=== PATIENT | female | born 1950 | race American Indian/Alaskan Native ===

== ENCOUNTER 2020-04-23 16:49 | Outpatient (REF) | payer MEDICARE, SELFPAY | END 2020-04-23 16:50 | disposition home or self-care (01) | LOC: HO.LAB 16:49 | PROVIDERS: PCP Family Medicine; Visit Provider Internal Medicine | DX: Z20.828 Contact with and (suspected) exposure to other viral communicable diseases (principal) | CPT/HCPCS: C9803; U0003 ==

== ENCOUNTER → 2020-06-01 10:04 | Outpatient (BNVA) | payer MEDICARE, SELFPAY | PROVIDERS: PCP Family Medicine; Visit Provider Internal Medicine Gastroenterology | DX: Z13.89 Encounter for screening for other disorder (principal) | CPT/HCPCS: Q3014 ==

== ENCOUNTER 2020-08-09 09:10 | Outpatient (REF) | payer MEDICARE, SELFPAY | END 2020-08-09 09:11 | disposition home or self-care (01) | LOC: HO.LAB 09:10 | PROVIDERS: Visit Provider Internal Medicine | DX: Z20.822 Contact with and (suspected) exposure to COVID-19 (principal) | CPT/HCPCS: 36415; C9803; U0003; U0005 ==

== ENCOUNTER 2020-10-21 13:49 | Outpatient (REF) | payer MEDICARE, SELFPAY ==
--- NOTE | ~2020-10-21 | MM_ITS ---
EXAMINATION: BONE DENSITOMETRY CLINICAL INDICATION: Screening for osteoporosis. COMPARISON: Previous BD dated 12/25/2013 and baseline BD dated 04/08/2010. TECHNIQUE: Using a [employer] DXA System (software version: 13.1) manufactured by [employer], dual-energy x-ray absorptiometry was performed of the lumbar spine and left hip. The images are of good technical quality. Summary results are attached. FINDINGS: AP SPINE L1-L4: Current: BMD 0.819 g/cm2, Z-score -1.6, T-score -3.0, osteoporosis, 1.6% increase from previous, 0.7% increase from baseline (<5% change is not significant). Prior: BMD 0.832 g/cm2. Baseline: BMD 0.813 g/cm2. LEFT FEMUR, NECK: Current: BMD 0.757 g/cm2, Z-score -0.5, T-score -2.0, osteopenia. Prior: BMD 0.646 g/cm2. Baseline: BMD 0.619 g/cm2. LEFT FEMUR, TOTAL: Current: BMD 0.750 g/cm2, Z-score -0.7, T-score -2.0, osteopenia, 11.6% increase from previous, 14.3% increase from baseline (<5% change is not significant). Prior: BMD 0.672 g/cm2. Baseline: BMD 0.656 g/cm2. IDENTIFIED RISK FACTORS: Menopause. HISTORY OF FRACTURE: None listed. MEDICATIONS: Calcium supplements or multivitamin, vitamin D. MM/XR DEXA axial skeleton IMPRESSION: 1. DIAGNOSIS: Osteoporosis based on the lowest T-score value of -3.0 in the lumbar spine applying World Health Organization criteria. 2. 10-YEAR FRACTURE RISK PREDICTION, FRAX: Major osteoporotic fracture (clinical spine, forearm, hip or shoulder) 6.9%. Hip fracture 1.4%. 3. Treatment Recommendations: NOF guidelines recommend consideration for treatment in postmenopausal women and men age 50 and older presenting with the following: -A hip or vertebral (clinical or morphometric) fracture. -T-score less than or equal to -2.5 at the femoral neck or spine after appropriate evaluation to exclude secondary causes. -Low bone mass at the hip or spine and a 10-year fracture probability by FRAX of greater than or equal to 3% for hip fracture or greater than or equal to 20% for major osteoporotic fracture based on the [place] adapted WHO algorithm. 4. Other Recommendations: All treatment decisions require clinical judgment and consideration of individual patient factors, including patient preferences, comorbidities, previous drug use, risk factors not captured in the FRAX model (e.g. frailty, falls, vitamin D deficiency, increased bone turnover, interval significant decline in bone density) and possible under or overestimation of fracture risk by FRAX. Additional medical evaluation for secondary cause of low bone mineral density may be appropriate. FUTURE SCAN RECOMMENDATION: People with diagnosed cases of osteoporosis or at high risk for fracture should have regular bone mineral density tests. For patients eligible for Medicare, routine testing is allowed once every 2 years. The testing frequency can be increased to one year for patients who have rapidly progressing disease, those who are receiving or discontinuing medical therapy to restore bone mass, or have additional risk factors.
== END 2020-10-21 13:50 | disposition home or self-care (01) ==
LOC: HO.MAMMO 13:49
PROVIDERS: Visit Provider Family Medicine
DX: Z13.820 Encounter for screening for osteoporosis (principal); M81.0 Age-related osteoporosis without current pathological fracture; Z78.0 Asymptomatic menopausal state; Z79.899 Other long term (current) drug therapy
CPT/HCPCS: 77080

== ENCOUNTER 2020-11-10 07:18 | Day surgery (SDC) | payer MEDICARE, SELFPAY ==
[2020-11-05 09:09] VITALS: BMI 32.0
[2020-11-10 07:37] VITALS: BP 136/54; PULSE 71; RESP 16; TEMP 36.2; O2SAT 100; BMI 31.2
--- NOTE | 2020-11-10 07:53 | MHC.SHP ---
Pre-Procedural Eval Section B Chief Complaint: Screening Relevant Family History (Specify if Yes): No Relevant Social History: None Present Medications: see Short Stay Collaborative assessment Medical History: Significant History ( AAA (abdominal aortic aneurysm) Asthma CAD (coronary artery disease) Carotid arterial disease Chronic venous insufficiency COPD (chronic obstructive pulmonary disease) Diabetes Elevated cholesterol HTN (hypertension) PVD (peripheral vascular disease) Subclavian artery stenos) History of Previous Operations: Relevant previous surgery/procedure and date(s) (History of colonoscopy Hx of endoscopy Hx of removal of cyst) Allergies: Allergies Allergy/AdvReac Type Severity Reaction Status Date / Time No Known Allergies Allergy Verified 06/01/20 10:05 Review of Systems Sugical H&P ROS: Negative: Constitution, Cardiovascular, Respiratory, Neurological, Psychiatric, Hem-Onc, Allergic/Immunologic, Gastrointestinal, Genitourinary, Musculoskeletal, Integumentary, Endocrine and Eyes/Ears/Nose/Throat Exam Surgical H&P Exam: Normal: HEENT, Normal: Heart, Normal: Lungs, Normal: Extremities, Normal: Abdomen, Normal: Skin and Normal: Neurological Plan Diagnosis/Plan: Unchanged I have reviewed the history and physical and performed a pertinent physical examination on my patient. No changes have occurred unless specified.
[2020-11-10 07:55] LABS: Glucose, Whole Blood 121 mg/dL (60-115)
--- NOTE | 2020-11-10 08:09 | P.CONAN_ITS ---
[facility] Active Problems Active Problems: All Active Problems (Updated 11/05/20 @ 09:15 by Zee cortez) Hx of colonic polyps (Acute) Past Medical History Medical History (Updated 11/05/20 @ 09:15 by Zee Hutchins) AAA (abdominal aortic aneurysm) Asthma CAD (coronary artery disease) Carotid arterial disease Chronic venous insufficiency COPD (chronic obstructive pulmonary disease) Diabetes Elevated cholesterol HTN (hypertension) PVD (peripheral vascular disease) Subclavian artery stenosis Family History Family History (Updated 06/01/20 @ 10:13 by Carolyn Peterson CMA) Father No problems noted. Mother Family history of high blood pressure Hx of type 1 diabetes mellitus Surgical History Surgical History (Updated 11/05/20 @ 08:57 by Zee Hutchins) History of colonoscopy Hx of endoscopy Hx of removal of cyst Social History Social History (Updated 06/01/20 @ 10:14 by Carolyn Peterson CMA) Alcohol intake: never Patient Tobacco Use Status: Former Tobacco user Quit Date: 2012 Tobacco use type: Cigarette Use of substances other than those prescribed or required for medical reasons: No Advance Directives Information Provided: No Meds Allergies Allergy/AdvReac Type Severity Reaction Status Date / Time No Known Allergies Allergy Verified 06/01/20 10:05 Home Medications Medication Instructions Recorded Confirmed Last Taken Type alendronate 70 mg tablet 70 mg PO QWEEK 06/01/20 11/05/20 Unknown History aspirin 81 mg tablet,delayed 81 mg PO DAILY 06/01/20 11/05/20 Unknown History release buspirone 5 mg tablet 5 mg PO BID 06/01/20 06/01/20 Unknown History cholecalciferol (vitamin D3) 50 50 mcg PO DAILY 06/01/20 06/01/20 Unknown History mcg (2,000 unit) tablet duloxetine 60 mg capsule,delayed 60 mg PO BID 06/01/20 11/05/20 Unknown History release ezetimibe 10 mg tablet 10 mg PO DAILY 06/01/20 11/05/20 Unknown History fenofibrate 160 mg tablet 160 mg PO DAILY 06/01/20 11/05/20 Unknown History fexofenadine 180 mg tablet 180 mg PO DAILY 06/01/20 06/01/20 Unknown History fluticasone 500 mcg-salmeterol 50 1 inh INHALATION DAILY 06/01/20 06/01/20 Unknown History mcg/dose blistr powdr for inhalation folic acid 1 mg tablet 1 mg PO DAILY 06/01/20 11/05/20 Unknown History gabapentin 400 mg capsule 400 mg PO TID 06/01/20 11/05/20 Unknown History metformin 500 mg tablet,extended 500 mg PO BID 06/01/20 11/05/20 Unknown History release 24 hr methotrexate sodium 2.5 mg tablet 15 mg PO QWEEK 06/01/20 06/01/20 Unknown History montelukast 10 mg tablet 10 mg PO DAILY 06/01/20 11/05/20 Unknown History quetiapine 200 mg tablet 200 mg PO BEDTIME 06/01/20 11/05/20 Unknown History rosuvastatin 40 mg tablet 40 mg PO DAILY 06/01/20 11/05/20 Unknown History sulfasalazine 500 mg tablet 1,000 mg PO BID 06/01/20 11/05/20 Unknown History clopidogrel 75 mg PO DAILY 11/05/20 11/05/20 Unknown History hydroxychloroquine 1 tab PO BID 11/05/20 11/05/20 Unknown History midodrine 5 mg PO BID 11/05/20 11/05/20 Unknown History ranitidine HCl 150 mg PO BID 11/05/20 11/05/20 Unknown History Exam Exam Date and Time: November 10, 2020 0809 Height,Weight and Vital Signs: Height 5 ft Weight 72.575 kg Last Vital Signs Temp 97.1 F 11/10/20 07:37 Pulse 71 11/10/20 07:37 Resp 16 11/10/20 07:37 BP 136/54 L 11/10/20 07:37 Pulse Ox 100 11/10/20 07:37 Pertinent Lab Results Pertinent Lab Results: Laboratory Tests 11/10/20 07:34 POC Glucose 121 H Airway Mallampati Class: II (Missing teeth on bottom) TM Dist: >3cm Neck ROM: Full Denture: Upper Heart: RRR Lungs: CTA Assessment and Plan Assessment Anesthesia Assessment: Anesthesia Plan Discussed and Chart Reviewed Final Anesthetic Review NPO: Yes ASA Class: III Final Preanesthetic Review: No Changes in Pt Med Stat and Consent Obtained/Reviewed Patient Risk: Intermediate Procedure Risk: Intermediate Anesthetic Plan Anesthetic Plan: MAC: Disposition: Standard PACU
--- NOTE | 2020-11-10 08:22 | ECG_ITS ---
Test Reason : POST OP CK RHYTHM Blood Pressure : / mmHG Vent. Rate : 068 BPM Atrial Rate : 068 BPM P-R Int : 204 ms QRS Dur : 082 ms QT Int : 416 ms P-R-T Axes : 072 -08 039 degrees QTc Int : 442 ms Poor data quality, interpretation may be adversely affected Normal sinus rhythm Normal ECG When compared with ECG of 27-SEP-2017 23:00, Vent. rate has decreased BY 33 BPM Referred By: Franck Vitale Electronically Signed By:
--- NOTE | 2020-11-10 09:04 | PM.OP ---
Brief Operative Note Date of Service: 11/10/20 Pre-op diagnosis: colon screen Post-op diagnosis: same Procedure: see op note Surgeon: Johann Terry MD Anesthesia: MAC Was an Chief Of Anesthesiology used for this Procedure?: No Estimated blood loss (mL): 0 Condition: stable Disposition: PACU
[2020-11-10 09:05] VITALS: BP 108/53; PULSE 73; RESP 16; TEMP 36.3; O2SAT 99
--- NOTE | 2020-11-10 09:05 | W.PM.OPN ---
Operative Note Operative Note Date of Service: 11/10/20 Narrative: Operative Information Procedure Description: Colonoscopy COLONOSCOPY Instrument: Olympus variable stiffness pediatric scope 190L Colonoscopy Monitoring: Vital signs and clinical assessment, continuous EKG monitoring, Pulse oximetry, Carbon Dioxide monitoring and blood pressure monitoring were done throughout the procedure. Colon withdrawal time was 8 minutes. Procedure: The patient was placed in the left lateral decubitis position and pre-procedure medications were administered. After a digital rectal examination of the ano-rectum, the video colonoscope was inserted into the rectum and advanced through the colon to the cecum/TI. The colonoscope was slowly withdrawn in a retrograde panoramic fashion and the colon mucosa was carefully examined including a retroflexed view of the rectum. Findings and interventions are described below. Procedure Difficulty:easy Findings: Terminal Ileum-normal Cecum:normal, few small non bleeding AVM noted Ascending Colon: 10 mm sessile polyp removed with col snare Transverse Colon -normal Descending Colon:normal Sigmoid Colon: normal Rectum: Retroflexion with small internal hemorrhoids, grade I Anorectum - normal Colon preparation: [place] Bowel Preparation Scale Right colon; 2 Transverse colon: 2 Left colon; 2 (0 = Unprepared colon segment with mucosa not seen due to solid stool that cannot be cleared. 1 = Portion of mucosa of the colon segment seen, but other areas of the colon segment not well seen due to staining, residual stool and/or opaque liquid. 2 = Minor amount of residual staining, small fragments of stool and/or opaque liquid, but mucosa of colon segment seen well. 3 = Entire mucosa of colon segment seen well with no residual staining, small fragments of stool or opaque liquid) Impression and Post Procedure Diagnosis: polyp AVM small internal hemorrhoids Plan: High fiber diet leaflet Avoid straining at stool, epsom salts and sitz bath, anusol supps or cream as needed Repeat Colonoscopy in 5 years or earlier if clinically indicated can restart plavix tomorrow Above findings were reviewed with the patient and relevant handouts were provided if indicated.
[2020-11-10 09:20] VITALS: BP 117/52; PULSE 69; RESP 16; TEMP 36.3; O2SAT 99
[2020-11-10 09:35] VITALS: BP 127/51; RESP 16; TEMP 36.3; O2SAT 99
== END 2020-11-10 10:44 | disposition home or self-care (01) ==
PROVIDERS: PCP Family Medicine; Visit Provider Internal Medicine Gastroenterology
PROC: 0DJD8ZZ Inspection of Lower Intestinal Tract, Via Natural or Artificial Opening Endoscopic (ICD-10-PCS; CPT 45378; principal; 2020-11-10 08:30)
DX: Z12.11 Encounter for screening for malignant neoplasm of colon (principal); K63.5 Polyp of colon; K64.0 First degree hemorrhoids; Q27.33 Arteriovenous malformation of digestive system vessel; I10 Essential (primary) hypertension; E11.9 Type 2 diabetes mellitus without complications; I71.4 Abdominal aortic aneurysm, without rupture; I77.9 Disorder of arteries and arterioles, unspecified; J44.9 Chronic obstructive pulmonary disease, unspecified; Z79.82 Long term (current) use of aspirin; Z79.84 Long term (current) use of oral hypoglycemic drugs; Z79.899 Other long term (current) drug therapy
CPT/HCPCS: 45385; 82947; 88305; 93005

== ENCOUNTER → 2020-11-23 14:48 | Outpatient (BNVA) | payer MEDICARE, SELFPAY | PROVIDERS: PCP Family Medicine; Visit Provider Internal Medicine Gastroenterology | DX: Z86.010 Personal history of colon polyps (principal) | CPT/HCPCS: Q3014 ==

== ENCOUNTER 2020-12-31 08:43 | Outpatient (REF) | payer MEDICARE, SELFPAY | END 2020-12-31 08:44 | disposition home or self-care (01) | LOC: HO.LAB 08:43 | PROVIDERS: PCP Family Medicine; Visit Provider Internal Medicine | DX: Z20.822 Contact with and (suspected) exposure to COVID-19 (principal) | CPT/HCPCS: C9803; U0003; U0005 ==

== ENCOUNTER 2021-03-10 10:04 | Outpatient (REF) | payer MEDICARE, SELFPAY ==
--- NOTE | ~2021-03-10 | XR_ITS ---
EXAMINATION: XR CHEST CLINICAL INFORMATION: COPD COMPARISON: Previous chest x-ray July 2018 and CTA of the chest November 2017 TECHNIQUE: 2 views of the chest were obtained. FINDINGS: The cardiac and mediastinal contours are normal. The lungs are clear. There is no pleural effusion or pneumothorax. There are degenerative changes of the spine. Bones may be osteopenic. XR/XR chest 2V IMPRESSION: No evidence for acute disease in the chest.
== END 2021-03-10 10:05 | disposition home or self-care (01) ==
LOC: HO.XRAY 10:04
PROVIDERS: PCP Family Medicine; Visit Provider Internal Medicine Geriatric Medicine
DX: J44.9 Chronic obstructive pulmonary disease, unspecified (principal)
CPT/HCPCS: 71046

== ENCOUNTER 2021-05-10 10:34 | Outpatient (REF) | payer MEDICARE, SELFPAY ==
--- NOTE | ~2021-05-10 | XR_ITS ---
EXAMINATION: BILATERAL SHOULDER X-RAY CLINICAL INFORMATION: Pain COMPARISON: Left shoulder x-ray June 2019 TECHNIQUE: 4 views of each shoulder FINDINGS: Left: There is increased sclerosis and lucency in the left humeral head suggestive of AVN. This is increased compared to June 2019 exam. No fracture or dislocation is seen. The glenohumeral joint is normal. There is mild arthritis at the acromioclavicular joint. Soft tissues are unremarkable. Right: Bone alignment is normal. No fracture or dislocation is seen. There is increased subchondral sclerosis of the right humeral head suggestive of AVN. Glenohumeral joint is normal. There is mild arthritis at the acromioclavicular joint. Soft tissues are unremarkable. XR/XR shoulder LT min 2V IMPRESSION: Bilateral humeral head AVN, left greater than right. Mild bilateral acromioclavicular joint arthritis.
--- NOTE | ~2021-05-10 | XR_ITS ---
EXAMINATION: BILATERAL SHOULDER X-RAY CLINICAL INFORMATION: Pain COMPARISON: Left shoulder x-ray June 2019 TECHNIQUE: 4 views of each shoulder FINDINGS: Left: There is increased sclerosis and lucency in the left humeral head suggestive of AVN. This is increased compared to June 2019 exam. No fracture or dislocation is seen. The glenohumeral joint is normal. There is mild arthritis at the acromioclavicular joint. Soft tissues are unremarkable. Right: Bone alignment is normal. No fracture or dislocation is seen. There is increased subchondral sclerosis of the right humeral head suggestive of AVN. Glenohumeral joint is normal. There is mild arthritis at the acromioclavicular joint. Soft tissues are unremarkable. XR/XR shoulder RT min 2V IMPRESSION: Bilateral humeral head AVN, left greater than right. Mild bilateral acromioclavicular joint arthritis.
== END 2021-05-10 10:35 | disposition home or self-care (01) ==
LOC: HO.XRAY 10:34
PROVIDERS: PCP Family Medicine; Visit Provider Internal Medicine
DX: M25.511 Pain in right shoulder (principal); M25.512 Pain in left shoulder
CPT/HCPCS: 73030

== ENCOUNTER → 2021-05-20 09:32 | Outpatient (BNVA) | payer MEDICARE, SELFPAY | PROVIDERS: PCP Family Medicine; Visit Provider Orthopaedic Surgery | DX: M87.011 Idiopathic aseptic necrosis of right shoulder (principal); M87.012 Idiopathic aseptic necrosis of left shoulder | CPT/HCPCS: 99202 ==

== ENCOUNTER 2021-06-14 15:36 | Outpatient (REF) | payer MEDICARE, SELFPAY ==
--- NOTE | ~2021-06-14 | MR_ITS ---
EXAMINATION: MRI OF THE LEFT SHOULDER WITHOUT CONTRAST CLINICAL INFORMATION: Left shoulder pain with symptoms x8 months. No weakness or numbness. COMPARISON: 07/05/2019 TECHNIQUE: MR images of the shoulder were obtained on a 1.5 Ge[employer] high-field strength scanner without intravenous contrast material. FINDINGS: ROTATOR CUFF: A small 0.8 x 0.4 cm interstitial, insertional partial tear of the supraspinatus tendon. The bursal and articular fibers are intact. Mild tendinosis. No additional rotator cuff tears. No muscle atrophy or fatty infiltration. BICEPS: Normal CORACOACROMIAL ARCH: The undersurface of the acromion is curved with no subacromial spur. Mild to moderate acromioclavicular osteoarthritis. LABRUM/CAPSULE: There is degenerative fraying of the glenoid labrum circumferentially, most pronounced superiorly and posteriorly. No discrete tears are identified. Joint capsule is unremarkable. GLENOHUMERAL JOINT/MARROW: There is a broad area of abnormal low-signal intensity in the subarticular bone of the humeral head superomedially measuring 3.2 x 3 cm in area with a depth of 1 cm and surrounding marrow edema. There is a very subtle cortical break along the inferior margin of the zone of infarction without significant cortical step-off. There is mild chondral thinning at the articular surface anterosuperiorly without full-thickness delamination. Small to moderate size marginal osteophytes are noted. Mild nonuniform articular cartilage loss is present at the glenoid posteriorly with a small focus of full-thickness fissuring. Small joint effusion. MR/MR shoulder LT wo con IMPRESSION: 1. 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 2. 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 3. Small 0.8 x 0.4 cm insertional, interstitial tear of the supraspinatus tendon. No larger rotator cuff tears.
== END 2021-06-14 15:37 | disposition home or self-care (01) ==
LOC: HO.MRI 15:36
PROVIDERS: PCP Family Medicine; Visit Provider Orthopaedic Surgery
DX: M87.012 Idiopathic aseptic necrosis of left shoulder (principal)
CPT/HCPCS: 73221

== ENCOUNTER 2021-06-27 13:39 | Outpatient (REF) | payer MEDICARE, SELFPAY ==
--- NOTE | ~2021-06-27 | CT_ITS ---
EXAMINATION: CT SCAN LEFT SHOULDER WITHOUT CONTRAST CLINICAL INFORMATION: Idiopathic aseptic necrosis. COMPARISON: MRI of the left shoulder June 2021. X-ray of the left shoulder May 2021. TECHNIQUE: CT scan of the left shoulder was performed utilizing a Tornier protocol. Reconstruction imaging was performed at the acquisition workstation. FINDINGS: As noted on prior examinations, there is an area of presumed avascular necrosis in the superomedial aspect of the humeral head unchanged compared to prior. There is a irregular lucency along the margin of this focus with adjacent sclerotic density. There is slight depression of the fragment. The lucency along its margin is consistent with the fracture line. There are marginal osteophytes along the inferior aspect of the humeral head indicative of at least minimal arthrosis of the glenohumeral joint. No definite joint space narrowing. The humeral head is not subluxed posteriorly. Glenoid vault depth is 1.8 cm. Glenoid version: -5 degrees No additional abnormalities. CT/CT shoulder LT wo con IMPRESSION: Tornier protocol performed for preoperative planning purposes. Avascular necrosis of the humeral head with slight depression of the area of avascular necrosis as seen on prior examinations. Minimal glenohumeral arthrosis.
== END 2021-06-27 13:40 | disposition home or self-care (01) ==
LOC: HO.CT 13:39
PROVIDERS: Visit Provider Orthopaedic Surgery
DX: M87.019 Idiopathic aseptic necrosis of unspecified shoulder (principal)
CPT/HCPCS: 73200

== ENCOUNTER 2021-06-28 12:03 | Outpatient (REF) | payer MEDICARE, SELFPAY ==
--- NOTE | ~2021-06-28 | XR_ITS ---
EXAMINATION: XR SHOULDER, RIGHT CLINICAL INFORMATION: Pain after fall a few weeks ago. COMPARISON: Right shoulder x-ray 05/10/2021 TECHNIQUE: AP external rotation, Grashey, scapular Y, and axillary views of the right shoulder. FINDINGS: Visualized portions of the proximal right humerus demonstrate no fracture. Humeral head demonstrates good articulation with the glenoid fossa. Mild sclerosis again noted within the right humeral head. There are mild degenerative changes of the right acromioclavicular joint. Visualized right-sided ribs and lung parenchyma are unremarkable. XR/XR shoulder RT min 2V IMPRESSION: Mild degenerative changes of the right shoulder including known avascular necrosis of the humeral head. No fracture or dislocation is present.
== END 2021-06-28 12:04 | disposition home or self-care (01) ==
LOC: HO.XRAY 12:03
PROVIDERS: PCP Family Medicine; Visit Provider Internal Medicine
DX: M25.511 Pain in right shoulder (principal)
CPT/HCPCS: 73030

== ENCOUNTER → 2021-07-19 12:48 | Outpatient (BNVA) | payer MEDICARE, SELFPAY | PROVIDERS: PCP Family Medicine; Visit Provider Orthopaedic Surgery | DX: Z01.812 Encounter for preprocedural laboratory examination (principal) | CPT/HCPCS: 36415; 80048; 83036; 85025 ==

== ENCOUNTER → 2021-07-22 13:36 | Outpatient (BNVA) | payer MEDICARE, SELFPAY | PROVIDERS: PCP Family Medicine; Visit Provider Physician Assistant | DX: M87.019 Idiopathic aseptic necrosis of unspecified shoulder (principal) | CPT/HCPCS: 99212 ==

== ENCOUNTER 2021-08-18 | Outpatient (REF) | payer OTHER, SELFPAY ==
--- NOTE | 2021-07-19 14:18 | ECG_ITS ---
Test Reason : preproc exam Blood Pressure : / mmHG Vent. Rate : 072 BPM Atrial Rate : 072 BPM P-R Int : 194 ms QRS Dur : 064 ms QT Int : 384 ms P-R-T Axes : 069 015 056 degrees QTc Int : 420 ms Normal sinus rhythm Normal ECG When compared with ECG of 10-NOV-2020 09:30, No significant change was found Referred By: Roger Watson Electronically Signed By:VALENTIN GARZA MD
== END 2021-08-18 00:01 ==
LOC: HO.PAT
PROVIDERS: PCP Family Medicine; Visit Provider Orthopaedic Surgery
DX: Z01.810 Encounter for preprocedural cardiovascular examination (principal); I96 Gangrene, not elsewhere classified
CPT/HCPCS: 93005

== ENCOUNTER 2021-11-22 12:23 | Emergency (ER) | payer OTHER, SELFPAY ==
--- NOTE | ~2021-11-22 | CT_ITS ---
EXAMINATION: CT HEAD WITHOUT CONTRAST CLINICAL INFORMATION: Head pain status post fall. COMPARISON: 11/21/[address] scan. TECHNIQUE: Contiguous axial imaging was performed from the skull base to vertex without intravenous administration of contrast. Coronal and sagittal reformatted images were obtained. This CT examination was performed using dose optimization techniques as appropriate, variously including the following: *Automated exposure control *Adjustment of mA and/or kV according to patient size (this includes techniques or standardized protocols for targeted exams where dose is matched to indication/reason for exam; i.e. extremities or head) *Use of iterative reconstruction technique DLP: 669.43 mGy-cm FINDINGS: There is no evidence of acute intracranial hemorrhage or territorial infarction. No abnormal mass effect or midline shift is seen. Cesar to white matter differentiation is well preserved. No extra-axial fluid collections are identified. The ventricles are normal in size. There is no abnormal attenuation within the brain parenchyma. The osseous structures and soft tissues are normal. The paranasal sinuses show moderate mucosal thickening and a small air-fluid level in the right maxillary sinus. The remainder of the visualized paranasal sinuses are clear. The mastoid air cells are clear. CT/CT head/brain wo con IMPRESSION: No acute intracranial pathology.
--- NOTE | ~2021-11-22 | XR_ITS ---
EXAMINATION: RIGHT SHOULDER AND HUMERUS X-RAY CLINICAL INFORMATION: Pain post fall COMPARISON: Previous right shoulder x-ray June 2021 TECHNIQUE: 2 views of the right humerus and 3 views of the right shoulder FINDINGS: Bone alignment is normal. No fracture or dislocation is seen. There is increased subchondral sclerosis and collapse of the humeral head suggestive of AVN. There is mild arthritis at the acromioclavicular joint. The elbow joint is normal. Soft tissues are normal. XR/XR humerus RT IMPRESSION: No fracture or dislocation. The AVN of the right humeral head. Mild arthritis at the acromioclavicular joint.
--- NOTE | ~2021-11-22 | XR_ITS ---
EXAMINATION: RIGHT SHOULDER AND HUMERUS X-RAY CLINICAL INFORMATION: Pain post fall COMPARISON: Previous right shoulder x-ray June 2021 TECHNIQUE: 2 views of the right humerus and 3 views of the right shoulder FINDINGS: Bone alignment is normal. No fracture or dislocation is seen. There is increased subchondral sclerosis and collapse of the humeral head suggestive of AVN. There is mild arthritis at the acromioclavicular joint. The elbow joint is normal. Soft tissues are normal. XR/XR shoulder RT min 2V IMPRESSION: No fracture or dislocation. The AVN of the right humeral head. Mild arthritis at the acromioclavicular joint.
--- NOTE | ~2021-11-22 | XR_ITS ---
EXAMINATION: XR ELBOW, RIGHT CLINICAL INFORMATION: Right elbow pain and swelling COMPARISON: None TECHNIQUE: AP, lateral, and oblique views of the right elbow. FINDINGS: The bones and soft tissues are unremarkable. No fracture or definite joint effusion. Alignment is anatomic. Joint spaces are maintained. XR/XR elbow RT min 3V IMPRESSION: Unremarkable right elbow. Cause for the patient's elbow pain and swelling has not been found.
--- NOTE | ~2021-11-22 | XR_ITS ---
EXAMINATION: XR RIBS, RIGHT CLINICAL INFORMATION: Fall. Rib pain. COMPARISON: Previous chest x-ray March 2021 left shoulder x-ray May [address] of the left shoulder June 2021 TECHNIQUE: 3 views of the right ribs and one view of the chest were obtained. FINDINGS: Lungs are clear. No consolidation, pneumothorax, or pleural effusion. The cardiomediastinal silhouette and pulmonary vasculature are normal. There is increased sclerosis of the left humeral head suggestive of AVN. This is similar to previous exams. There are degenerative changes of the thoracic spine. Ribs are intact. No rib fractures are identified. XR/XR ribs RT min 3V w CXR1V IMPRESSION: No evidence for acute disease in the chest. No rib fracture. Degenerative changes of the thoracic spine. Increased sclerosis of the left humeral head suggestive of AVN.
--- NOTE | ~2021-11-22 | CT_ITS ---
EXAMINATION: CT CERVICAL SPINE WITHOUT CONTRAST CLINICAL INFORMATION: Neck pain status post fall. COMPARISON: Chest CTA dated 11/06/2017. TECHNIQUE: Multiple axial images of the cervical spine were obtained without the administration of intravenous contrast. Coronal and sagittal reformatted images were obtained. This CT examination was performed using dose optimization techniques as appropriate, variously including the following: *Automated exposure control *Adjustment of mA and/or kV according to patient size (this includes techniques or standardized protocols for targeted exams where dose is matched to indication/reason for exam; i.e. extremities or head) *Use of iterative reconstruction technique DLP: 381.13 mGy-cm FINDINGS: There is straightening of the normal cervical lordosis. The vertebral bodies are unremarkable. Minimal grade 1 anterolisthesis is seen at C6-C7. The disc spaces are unremarkable. The neural foramina are patent. The facet joints are unremarkable. The spinous processes are intact. The odontoid process is intact with mild articular degenerative changes. The cervical soft tissues are unremarkable. There is no lymphadenopathy. The thyroid gland is unremarkable. The visualized lung apices show mild centrilobular/paraseptal emphysema and biapical scarring, right greater than left. CT/CT cervical spine wo con IMPRESSION: 1. Straightening of the normal cervical lordosis may be secondary to positioning and/or muscle spasm. 2. No acute abnormality. Minimal grade 1 anterolisthesis at C6-C7 is likely degenerative in nature. No associated acute abnormality. 3. Mild biapical centrilobular/paraseptal emphysema and biapical scarring without other significant abnormality Fleischner guidelines were followed.
[2021-11-22 12:49] VITALS: BP 167/59; PULSE 72; RESP 19; TEMP 36.9; O2SAT 98; BMI 25.8
--- NOTE | 2021-11-22 12:54 | ECG_ITS ---
Test Reason : DIZINESS Blood Pressure : / mmHG Vent. Rate : 061 BPM Atrial Rate : 061 BPM P-R Int : 184 ms QRS Dur : 070 ms QT Int : 398 ms P-R-T Axes : 058 -05 021 degrees QTc Int : 400 ms Normal sinus rhythm Minimal voltage criteria for LVH, may be normal variant ( R in aVL ) Borderline ECG When compared with ECG of 19-JUL-2021 14:20, No significant change was found Referred By: Generic ED Physician Electronically Signed By:VALENTIN GARZA MD
[2021-11-22 13:11] LABS: MANUAL DIFF FLAG NO
[2021-11-22 13:13] LABS: Appearance Urine CLEAR; Color Urine YELLOW; Glucose Urine UA NEG (NEG); Leukocyte Esterase Urine 1+ (NEG); Nitrite Urine NEG (NEG); UACC Culture Trigger YES; Urine Blood NEG (NEG); Urine Ketones NEG (NEG); Urine Protein NEG (NEG-TRACE)
[2021-11-22 13:18] LABS: Basophils Absolute Auto 0.1 X10*3/uL (0.0-0.2); Basophils Percent Auto 0.9 % (0-2); Eosinophils Absolute Auto 0.3 X10*3/uL (0.0-0.4); Eosinophils Percent Auto 3.7 % (0-4); Hematocrit 39.7 % (37.0-47.0); Hemoglobin 12.8 g/dl (12.0-16.0); Imm Gran Abs Auto 0.06 X10*3/uL (0.00-0.03); Imm Gran Pct Auto 0.9 % (0.0-0.4); Lymphocytes Absolute Auto 2.1 X10*3/uL (1.2-4.9); Lymphocytes Percent Auto 30.5 % (20-40); Mean Corpuscular HGB Conc 32.2 g/dl (31.0-35.0); Mean Corpuscular Hemoglobin 29.6 pg (27.0-33.0); Mean Corpuscular Volume 91.9 fL (80.0-98.0); Mean Platelet Volume 10.5 fL (9.4-12.3); Monocytes Absolute Auto 0.6 X10*3/uL (0.1-1.2); Monocytes Percent Auto 8.6 % (2-11); Neutrophils Absolute Auto 3.9 x10*3/uL (2.0-8.3); Neutrophils Percent Auto 55.4 % (45-73); Platelet Count 211 X10*3/uL (160-400); Red Blood Count 4.32 X10*6/uL (4.20-5.50); Red Cell Distribution Width 13.2 % (11.0-16.0)
[2021-11-22 13:21] LABS: Bacteria Urine TRACE /LPF; RBC Urine 0 /HPF (0); Squamous Epithelial Cell Urine 2+ /LPF
[2021-11-22 13:31] LABS: Anion Gap 11 (12-20); Blood Urea Nitrogen 15 mg/dL (9-16); Calcium 8.9 mg/dL (8.4-10.2); Carbon Dioxide 25 mmol/L (22-29); Chloride 109 mmol/L (96-108); Creatinine Clr Calc Pharmacy 67.3; Estimated Glomerular Filt Rate > 60; Glucose Random 120 mg/dL (60-115); Potassium 3.9 mmol/L (3.3-5.1); Sodium 141 mmol/L (135-145); Troponin-I High Sensitivity < 3.5 ng/L (<3.5-17.0)
[2021-11-22 15:04] VITALS: BP 174/69; PULSE 62; RESP 18; TEMP 36.9; O2SAT 98
--- NOTE | 2021-11-22 15:14 | ED.FALL ---
HPI - Fall General Chief Complaint: Fall Stated Complaint: rib pain r arm pain Time Seen by Provider: 11/22/21 15:14 Source: patient Mode of arrival: EMS Limitations: language barrier History of Present Illness HPI Narrative: 71-year-old female with past medical history of abdominal aortic aneurysm, asthma, coronary artery disease, carotid artery disease, chronic venous insufficiency, COPD, diabetes, hypertension, peripheral vascular disease, and subclavian arterial stenosis who is on Plavix and has a past medical history of avascular necrosis of right shoulder diagnosed on MRI in June 2021, presents for pain in her right ribs and right arm after a fall last night. Patient was in the bathtub and became dizzy and fell. Patient is not dizzy now, denies chest pain, denies shortness of breath. States she did hit her head on the left side, endorses mild neck pain, denies loss of consciousness. Patient has pain in her right shoulder, she cannot range her shoulder due to prior rotator cuff tear in right shoulder. She has pain in her right upper arm, right elbow, right ribs. Related Data Home Medications Medication Instructions Recorded Confirmed alendronate 70 mg tablet 70 mg PO QWEEK 06/01/20 07/19/21 aspirin 81 mg tablet,delayed 81 mg PO DAILY 06/01/20 07/19/21 release buspirone 5 mg tablet 5 mg PO BID 06/01/20 07/19/21 cholecalciferol (vitamin D3) 50 50 mcg PO DAILY 06/01/20 07/19/21 mcg (2,000 unit) tablet duloxetine 60 mg capsule,delayed 60 mg PO BID 06/01/20 07/19/21 release ezetimibe 10 mg tablet 10 mg PO DAILY 06/01/20 07/19/21 fenofibrate 160 mg tablet 160 mg PO DAILY 06/01/20 07/19/21 fexofenadine 180 mg tablet 180 mg PO DAILY 06/01/20 07/19/21 fluticasone 500 mcg-salmeterol 50 1 inh inhalation DAILY 06/01/20 07/19/21 mcg/dose blistr powdr for inhalation folic acid 1 mg tablet 1 mg PO DAILY 06/01/20 07/19/21 gabapentin 400 mg capsule 400 mg PO TID 06/01/20 07/19/21 metformin 500 mg tablet,extended 500 mg PO BID 06/01/20 07/19/21 release 24 hr methotrexate sodium 2.5 mg tablet 15 mg PO QWEEK 06/01/20 07/19/21 montelukast 10 mg tablet 10 mg PO DAILY 06/01/20 07/19/21 quetiapine 200 mg tablet 200 mg PO BEDTIME 06/01/20 07/19/21 rosuvastatin 40 mg tablet 40 mg PO DAILY 06/01/20 07/19/21 sulfasalazine 500 mg tablet 1,000 mg PO BID 06/01/20 07/19/21 clopidogrel 75 mg tablet 75 mg PO DAILY 11/05/20 07/19/21 hydroxychloroquine 200 mg tablet 1 tab PO BID 11/05/20 07/19/21 midodrine 5 mg tablet 5 mg PO BID 11/05/20 07/19/21 ranitidine HCl 150 mg tablet 150 mg PO BID 11/05/20 07/19/21 Previous Rx's Medication Instructions Recorded peg-electrolyte solution 420 gram 240 ml PO Q10M #4,000 mL 06/01/20 oral solution (TriLyte With Flavor Packets) bisacodyl 5 mg tablet,delayed 10 mg PO ONCE Bowel Preparation 1 06/02/20 release (Dulcolax (bisacodyl)) day #2 tabs polyethylene glycol 3350 17 238 g PO ONCE 1 day #238 grams 06/02/20 gram/dose oral powder (Miralax) acetaminophen 500 mg tablet 500 mg PO Q6H PRN pain #30 tabs 11/22/21 cefuroxime axetil 500 mg tablet 500 mg PO BID 7 days #14 tabs 11/22/21 Allergies Allergy/AdvReac Type Severity Reaction Status Date / Time No Known Allergies Allergy Verified 07/22/21 13:45 Review of Systems Constitutional: Constitutional: Denies body ache(s), Denies chills, Denies fatigue, Denies fever(s), Denies headache(s), Denies malaise and Denies weakness Eyes: Eyes: Denies blurry vision and Denies diplopia ENT: Denies vertigo, Reports dizziness, Denies otalgia, Denies headache(s), Denies mouth pain, Denies post nasal drip, Denies sinus pain, Denies sinus pressure, Denies sore throat and Denies throat swelling Cardiovascular: Cardiovascular: Denies chest pain, Denies syncope, Denies leg edema, Denies lightheadedness, Denies Loss of Consciousness, Denies palpitations and Denies dyspnea Respiratory: Respiratory: Denies chest congestion, Denies cough and Denies dyspnea Gastrointestinal: Gastrointestinal: Denies abdominal pain, Denies hematochezia, Denies constipation, Denies diarrhea, Denies nausea and Denies vomiting Genitourinary: Genitourinary: Reports no additional female genitourinary complaints Musculoskeletal: Musculoskeletal: Reports back pain, Reports arthralgias and Reports radiating pain into limb Integumentary/Breasts: Skin/Breast: Denies erythema and Denies wounds Neurologic: Denies confusion, Denies vertigo, Reports dizziness, Denies syncope, Denies headache(s) and Denies weakness Psychiatric: Psychiatric: Denies anxiety, Denies confusion and Denies depression Endocrine: Endocrine: Denies fatigue and Denies palpitations Allergic/Immunologic: Allergic/Immunologic: Denies throat swelling PMFSH Past Medical History Medical History AAA (abdominal aortic aneurysm) Asthma CAD (coronary artery disease) Carotid arterial disease Chronic venous insufficiency COPD (chronic obstructive pulmonary disease) Diabetes Elevated cholesterol HTN (hypertension) PVD (peripheral vascular disease) Subclavian artery stenosis Surgical History History of colonoscopy Hx of endoscopy Hx of removal of cyst Family History Family History Father No problems noted. Mother Family history of high blood pressure Hx of type 1 diabetes mellitus Social History Social History Alcohol intake: never Patient Tobacco Use Status: Former Tobacco user Quit Date: 2012 Tobacco use type: Cigarette Advance Directives: No Advance Directives Information Provided: No Physical Exam Vital Signs: Vital Signs: Last Vital Signs Temp 98 F 11/22/21 17:19 Pulse 56 11/22/21 17:19 Resp 16 11/22/21 17:19 BP 168/59 H 11/22/21 17:19 Pulse Ox 98 11/22/21 17:19 O2 Del Method 11/22/21 17:19 BMI result Body Mass Index 25.8 Const: General: comfortable, no acute distress, well developed, alert and awake; No confusion Nutritional Appearance: well nourished Orientation/consciousness: patient oriented x3 and No confusion Limitations: no limitations Eyes: Conjunctivae: conjunctivae normal Pupils: Equal, round and reactive pupils present EOM: EOMs intact bilaterally Neck: Neck: Yes full ROM, Yes no lymphadenopathy and Yes supple Chest: Chest palpation & inspection: normal inspection of the chest and no crepitus Resp: Effort & Inspection: normal respiratory effort and able to speak in complete sentences Auscultation: clear to auscultation bilaterally, no crackles, no rales, no rhonchi and no wheezes Cardio: Rate: regular rate Rhythm: regular rhythm Heart sounds: S1 normal heart sound present and S2 normal heart sound present GI: Inspection: Yes normal to inspection Palpation (GI): Soft to palpation, nontender, no guarding and not rigid Percussion: Yes normal to percussion Auscultation: normal bowel sounds : General: Yes no CVA tenderness Back/Spine/Pelvis: Back: no CVA tenderness Cervical Spine: normal cervical lordosis, cervical ROM normal, No Cervical spine tenderness, No step off deformity and No cervical ROM abnormal Thoracic/Lumbar Spine: thoracic and lumbar spine normal to inspection, No paraspinal muscle tenderness, No thoracic spinal tenderness and No lumbar spinal tenderness Pelvis: no pain with anterior-posterior compression and no pain with lateral compression Skin: General skin exam: no rashes or lesions noted Neuro: General: patient oriented x3 and No confusion Cranial nerves: Yes Equal, round and reactive pupils present Extrem: Right upper extremity: normal to inspection, normal capillary refill, shoulder/upper arm Details: normal to inspection, axillary nerve sensory function normal and abnormal ROM Details: pain with active ROM Details: in ADduction, in ABduction, in extension, in flexion, in internal rotation and external rotation-; no lacerations, no ecchymosis, no crepitus, no deformity and no unusual warmth and elbow/forearm Details: normal to inspection, tenderness and normal ROM; no swelling; no edema Psych: Appearance: grossly normal Affect: normal affect Attitude: cooperative Thought process: Normal thought process present Course Course Course Narrative: 71-year-old female presents for right arm pain and right rib pain status post fall yesterday in the bathtub. Patient fell because she was dizzy. Denies dizziness at this time denies chest pain, denies shortness of breath. On exam, patient is well-appearing, is tender over right AC joint, cannot range her right shoulder, is tender over her right posterior ribs. Also tender over medial and lateral elbow olecranon. Patient cannot range her shoulder due to prior known avascular necrosis and rotator cuff tear. Head CT is negative, CT cervical spines shows straightening of the normal lordosis, patient has a normal EKG with a negative troponin. Labs are unremarkable, imaging shows cervical neck muscle spasm, and right shoulder increased subchondral sclerosis and collapse of the humeral head due to avascular necrosis along with AC joint arthritis. No fractures found. Urine is mildly infected, this could be a source of patient's dizziness last night, will treat with antibiotics. Counseled patient that she must follow-up with orthopedics. Explained to her that avascular necrosis means that her bone is dying, this will not get better on its own. Reevaluation(s) Reevaluation #1: FINDINGS: There is no evidence of acute intracranial hemorrhage or territorial infarction. No abnormal mass effect or midline shift is seen. Cesar to white matter differentiation is well preserved. No extra-axial fluid collections are identified. The ventricles are normal in size. There is no abnormal attenuation within the brain parenchyma. The osseous structures and soft tissues are normal. The paranasal sinuses show moderate mucosal thickening and a small air-fluid level in the right maxillary sinus. The remainder of the visualized paranasal sinuses are clear. The mastoid air cells are clear. ? CT/CT head/brain wo con IMPRESSION: No acute intracranial pathology. ? CT/CT cervical spine wo con IMPRESSION: 1. Straightening of the normal cervical lordosis may be secondary to positioning and/or muscle spasm. 2. No acute abnormality. Minimal grade 1 anterolisthesis at C6-C7 is likely degenerative in nature. No associated acute abnormality. 3. Mild biapical centrilobular/paraseptal emphysema and biapical scarring without other significant abnormality Bone alignment is normal. No fracture or dislocation is seen. There is increased subchondral sclerosis and collapse of the humeral head suggestive of AVN. There is mild arthritis at the acromioclavicular joint. The elbow joint is normal. Soft tissues are normal. XR/XR shoulder RT min 2V IMPRESSION: No fracture or dislocation. The AVN of the right humeral head. Mild arthritis at the acromioclavicular joint.? MDM - Fall Lab Data Result diagrams: 11/22/21 13:08 11/22/21 13:08 Labs: Lab Results 11/22/21 11/22/21 11/22/21 Range/Units 13:04 13:08 13:08 WBC 7.0 (4.8-10.8) X10*3/uL RBC 4.32 (4.20-5.50) X10*6/uL Hgb 12.8 (12.0-16.0) g/dl Hct 39.7 (37.0-47.0) % MCV 91.9 (80.0-98.0) fL MCH 29.6 (27.0-33.0) pg MCHC 32.2 (31.0-35.0) g/dl RDW 13.2 (11.0-16.0) % Plt Count 211 (160-400) X10*3/uL MPV 10.5 (9.4-12.3) fL Immature Gran % (Auto) 0.9 H (0.0-0.4) % Neut % (Auto) 55.4 (45-73) % Lymph % (Auto) 30.5 (20-40) % [place] % (Auto) 8.6 (2-11) % Eos % (Auto) 3.7 (0-4) % Baso % (Auto) 0.9 (0-2) % Lymph # (Auto) 2.1 (1.2-4.9) X10*3/uL [place] # (Auto) 0.6 (0.1-1.2) X10*3/uL Eos # (Auto) 0.3 (0.0-0.4) X10*3/uL Baso # (Auto) 0.1 (0.0-0.2) X10*3/uL Abs Immat Gran (auto) 0.06 H (0.00-0.03) X10*3/uL Absolute Neuts (auto) 3.9 (2.0-8.3) x10*3/uL Absolute Nucleated RBC 0.000 (0.0-0.012) X10*3/uL Nucleated RBC % (auto) 0.0 (0.0-0.2) /100WBC Sodium 141 (135-145) mmol/L Potassium 3.9 (3.3-5.1) mmol/L Chloride 109 H (96-108) mmol/L Carbon Dioxide 25 (22-29) mmol/L Anion Gap 11 L (12-20) BUN 15 (9-16) mg/dL Creatinine 0.77 (0.5-1.4) mg/dL Estim Creat Clear Calc 67.3 Estimated GFR > 60 Random Glucose 120 H (60-115) mg/dL Calcium 8.9 D (8.4-10.2) mg/dL Troponin I High Sens (<3.5-17.0) ng/L Urine Color YELLOW Urine Appearance CLEAR Urine pH 6.0 (5.0-8.0) Ur Specific [place] 1.010 (1.005-1.025) Urine Protein NEG (NEG-TRACE) MG/DL Urine Glucose (UA) NEG (NEG) MG/DL Urine Ketones NEG (NEG) MG/DL Urine Blood NEG (NEG) Urine Nitrite NEG (NEG) Ur Leukocyte Esterase 1+ H (NEG) Urine RBC 0 (0) /HPF Urine WBC 5-9 H (0-4) /HPF Ur Squamous Epith Cells 2+ /LPF Urine Bacteria TRACE /LPF COVID-19 ([facility]) (Negative) COVID-19 Clin Com 11/22/21 11/22/21 Range/Units 13:08 16:13 WBC (4.8-10.8) X10*3/uL RBC (4.20-5.50) X10*6/uL Hgb (12.0-16.0) g/dl Hct (37.0-47.0) % MCV (80.0-98.0) fL MCH (27.0-33.0) pg MCHC (31.0-35.0) g/dl RDW (11.0-16.0) % Plt Count (160-400) X10*3/uL MPV (9.4-12.3) fL Immature Gran % (Auto) (0.0-0.4) % Neut % (Auto) (45-73) % Lymph % (Auto) (20-40) % [place] % (Auto) (2-11) % Eos % (Auto) (0-4) % Baso % (Auto) (0-2) % Lymph # (Auto) (1.2-4.9) X10*3/uL [place] # (Auto) (0.1-1.2) X10*3/uL Eos # (Auto) (0.0-0.4) X10*3/uL Baso # (Auto) (0.0-0.2) X10*3/uL Abs Immat Gran (auto) (0.00-0.03) X10*3/uL Absolute Neuts (auto) (2.0-8.3) x10*3/uL Absolute Nucleated RBC (0.0-0.012) X10*3/uL Nucleated RBC % (auto) (0.0-0.2) /100WBC Sodium (135-145) mmol/L Potassium (3.3-5.1) mmol/L Chloride (96-108) mmol/L Carbon Dioxide (22-29) mmol/L Anion Gap (12-20) BUN (9-16) mg/dL Creatinine (0.5-1.4) mg/dL Estim Creat Clear Calc Estimated GFR Random Glucose (60-115) mg/dL Calcium (8.4-10.2) mg/dL Troponin I High Sens < 3.5 (<3.5-17.0) ng/L Urine Color Urine Appearance Urine pH (5.0-8.0) Ur Specific [place] (1.005-1.025) Urine Protein (NEG-TRACE) MG/DL Urine Glucose (UA) (NEG) MG/DL Urine Ketones (NEG) MG/DL Urine Blood (NEG) Urine Nitrite (NEG) Ur Leukocyte Esterase (NEG) Urine RBC (0) /HPF Urine WBC (0-4) /HPF Ur Squamous Epith Cells /LPF Urine Bacteria /LPF COVID-19 ([facility]) Negative (Negative) COVID-19 Clin Com See Note ECG Data Interpretation: Sinus with a rate of 61, [place] interval 184, QRS 70, QTC 400, left-sided axis, no ST elevations or depressions, no T-wave abnormalities Discharge Plan Discharge Clinical Impression: Fall, Avascular necrosis of bone of shoulder, Acute UTI Patient Disposition: Home, Self-Care Instructions: Fall Prevention (ED), Urinary Tract Infection in Older Adults (ED) Additional Instructions: I have referred you to a Orthopedics. It is very important that you follow-up with them for your right shoulder. If you do not hear from them by tomorrow afternoon please call them at the following phone number [phone] in addition, your having urinary tract infection. I have send antibiotics to [facility] on [facility] I would like you to start those tonight. Please return to the emergency room if you have chest pain, shortness of breath, fevers, or any more dizziness. In addition, I have prescribed Tylenol. I also want you to call your primary care provider for follow-up appointment from today's emergency room visit Te he derivado a [employer]. Es muy importante que kari un seguimiento con ellos para walter hombro derecho. Si no tiene noticias de ellos ma?gregory por la tarde, ll?melos al siguiente n?irena de tel?fono [phone] adem?s, tiene shiva infecci?n del tracto urinario. He enviado antibi?ticos a [facility] en [facility]. Me gustar?a que los comenzara esta noche. Regrese a la alec de emergencias si tiene dolor en el pecho, dificultad para respirar, fiebre o m?s mareos. Adem?s, le he recetado Tylenol. Tambi?n quiero que llame a walter proveedor de atenci?n primaria para shiva luis daniel de seguimiento de la visita a la alec de emergencias de hoy. Prescriptions: New cefuroxime axetil 500 mg tablet 500 mg PO BID 7 Days Qty: 14 0RF acetaminophen 500 mg tablet 500 mg PO Q6H PRN (Reason: pain) Qty: 30 0RF No Action midodrine 5 mg tablet 5 mg PO BID clopidogrel 75 mg tablet 75 mg PO DAILY ranitidine HCl 150 mg Tablet 150 mg PO BID hydroxychloroquine 200 mg tablet 1 tab PO BID methotrexate sodium 2.5 mg tablet 15 mg PO QWEEK sulfasalazine 500 mg tablet 1,000 mg PO BID cholecalciferol (vitamin D3) 50 mcg (2,000 unit) tablet 50 mcg PO DAILY fenofibrate 160 mg tablet 160 mg PO DAILY duloxetine 60 mg capsule,delayed release(DR/EC) 60 mg PO BID rosuvastatin 40 mg tablet 40 mg PO DAILY metformin 500 mg tablet extended release 24 hr 500 mg PO BID ezetimibe 10 mg tablet 10 mg PO DAILY montelukast 10 mg tablet 10 mg PO DAILY folic acid 1 mg tablet 1 mg PO DAILY fluticasone propion-salmeterol 500-50 mcg/dose blister with device 1 inh inhalation DAILY aspirin 81 mg tablet,delayed release (DR/EC) 81 mg PO DAILY fexofenadine 180 mg tablet 180 mg PO DAILY gabapentin 400 mg capsule 400 mg PO TID alendronate 70 mg tablet 70 mg PO QWEEK buspirone 5 mg tablet 5 mg PO BID quetiapine 200 mg tablet 200 mg PO BEDTIME peg-electrolyte soln [TriLyte With Flavor Packets] 420 gram recon soln 240 ml PO Q10M Qty: 4000 0RF Rx Instructions: until fecal effluent is clear; do not exceed a total volume of 2,000 mL polyethylene glycol 3350 [Miralax] 17 gram/dose powder 238 g PO ONCE 1 Days Qty: 238 0RF Rx Instructions: Take as directed by mouth, bowel prep bisacodyl [Dulcolax (bisacodyl)] 5 mg tablet,delayed release (DR/EC) 10 mg PO ONCE 1 Days Qty: 2 0RF Rx Instructions: Take 2 tablets at 12:00pm the day before your procedure, bowel prep Referrals: Roger Watson MD [Physician] -
[2021-11-22] MEDS: Acetaminophen 325 MG TABLET 975 MG PO (16:08)
[2021-11-22 16:32] LABS: COVID-19 Test Negative (Negative); IDNOW Serial# 16C4AD1C
[2021-11-22 17:19] VITALS: BP 168/59; PULSE 56; RESP 16; TEMP 36.6; O2SAT 98
== END 2021-11-22 18:17 | disposition home or self-care (01) ==
PROVIDERS: Physician Assistant; Emergency Provider Student in an Organized Health Care Education/Training Program
DX: S46.911A Strain of unspecified muscle, fascia and tendon at shoulder and upper arm level, right arm, initial encounter (principal); S29.9XXA Unspecified injury of thorax, initial encounter; R42 Dizziness and giddiness; M54.2 Cervicalgia; G44.309 Post-traumatic headache, unspecified, not intractable; R07.81 Pleurodynia; W18.2XXA Fall in (into) shower or empty bathtub, initial encounter; Y93.E1 Activity, personal bathing and showering; Y92.002 Bathroom of unspecified non-institutional (private) residence as the place of occurrence of the external cause; Y99.9 Unspecified external cause status; Z20.822 Contact with and (suspected) exposure to COVID-19; Z79.899 Other long term (current) drug therapy; Z87.891 Personal history of nicotine dependence
CPT/HCPCS: 36415; 70450; 71101; 72125; 73030; 73060; 73080; 80048; 81001; 84484; 85025; 87086; 87635; 93005; 99284

== ENCOUNTER 2021-11-30 08:47 | Outpatient (REF) | payer OTHER, SELFPAY ==
[2021-11-30 08:59] LABS: MANUAL DIFF FLAG NO
[2021-11-30 10:30] LABS: Basophils Percent Auto 0.8 % (0-2); Eosinophils Absolute Auto 0.3 X10*3/uL (0.0-0.4); Eosinophils Percent Auto 5.9 % (0-4); Hematocrit 37.7 % (37.0-47.0); Hemoglobin 12.3 g/dl (12.0-16.0); Imm Gran Abs Auto 0.02 X10*3/uL (0.00-0.03); Imm Gran Pct Auto 0.4 % (0.0-0.4); Lymphocytes Absolute Auto 1.8 X10*3/uL (1.2-4.9); Lymphocytes Percent Auto 34.4 % (20-40); Mean Corpuscular HGB Conc 32.6 g/dl (31.0-35.0); Mean Corpuscular Hemoglobin 30.5 pg (27.0-33.0); Mean Corpuscular Volume 93.5 fL (80.0-98.0); Mean Platelet Volume 11.8 fL (9.4-12.3); Monocytes Absolute Auto 0.4 X10*3/uL (0.1-1.2); Monocytes Percent Auto 7.8 % (2-11); Neutrophils Absolute Auto 2.7 x10*3/uL (2.0-8.3); Neutrophils Percent Auto 50.7 % (45-73); Platelet Count 208 X10*3/uL (160-400); Red Blood Count 4.03 X10*6/uL (4.20-5.50); Red Cell Distribution Width 13.8 % (11.0-16.0); White Blood Count 5.2 X10*3/uL (4.8-10.8)
[2021-11-30 11:10] LABS: Alanine Aminotransferase 66 U/L (0-31); Aspartate Amino Transferase 58 U/L (5-31); Estimated Glomerular Filt Rate > 60
[2021-11-30 11:12] LABS: Erythrocyte Sedimentation Rate 50 MM/HR (0-20)
== END 2021-11-30 08:48 | disposition home or self-care (01) ==
LOC: HO.LAB 08:47
PROVIDERS: PCP Family Medicine; Visit Provider Internal Medicine Rheumatology
DX: M06.00 Rheumatoid arthritis without rheumatoid factor, unspecified site (principal); M81.0 Age-related osteoporosis without current pathological fracture; Z79.899 Other long term (current) drug therapy
CPT/HCPCS: 36415; 82565; 84450; 84460; 85025; 85652; 86140; 99212

== ENCOUNTER → 2021-12-01 14:13 | Outpatient (BNVA) | payer OTHER, SELFPAY | PROVIDERS: PCP Family Medicine; Visit Provider Orthopaedic Surgery | DX: M87.011 Idiopathic aseptic necrosis of right shoulder (principal); M19.211 Secondary osteoarthritis, right shoulder | CPT/HCPCS: 99212 ==

== ENCOUNTER 2021-12-08 11:14 | Outpatient (REF) | payer OTHER, SELFPAY ==
[2021-12-08 13:05] LABS: Alanine Aminotransferase 32 U/L (0-31); Albumin Level 4.1 g/dL (3.5-5.0); Alkaline Phosphatase 107 U/L (39-117); Aspartate Amino Transferase 27 U/L (5-31); Bilirubin Direct < 0.2 mg/dL (0.0-0.5); Bilirubin Total 0.4 mg/dL (0.0-1.0); Total Protein 7.4 g/dL (6.5-8.0)
== END 2021-12-08 11:15 | disposition home or self-care (01) ==
LOC: HO.LAB 11:14
PROVIDERS: PCP Family Medicine; Visit Provider Internal Medicine Rheumatology
DX: M06.00 Rheumatoid arthritis without rheumatoid factor, unspecified site (principal); Z79.899 Other long term (current) drug therapy
CPT/HCPCS: 36415; 80076

== ENCOUNTER 2022-01-04 09:55 | Outpatient (REF) | payer OTHER, SELFPAY ==
--- NOTE | 2022-01-04 | ECG_ITS ---
Test Reason : PREPROC EXAM Blood Pressure : / mmHG Vent. Rate : 072 BPM Atrial Rate : 072 BPM P-R Int : 188 ms QRS Dur : 064 ms QT Int : 398 ms P-R-T Axes : 069 015 053 degrees QTc Int : 435 ms Normal sinus rhythm Normal ECG When compared with ECG of 22-NOV-2021 12:53, No significant change was found Referred By: Teresita Munroe Electronically Signed By:VALENTIN GARZA MD
[2022-01-04 10:27] LABS: MANUAL DIFF FLAG NO
[2022-01-04 10:56] LABS: Basophils Absolute Auto 0.1 X10*3/uL (0.0-0.2); Basophils Percent Auto 1.2 % (0-2); Eosinophils Absolute Auto 0.2 X10*3/uL (0.0-0.4); Eosinophils Percent Auto 4.6 % (0-4); Hematocrit 38.6 % (37.0-47.0); Hemoglobin 12.4 g/dl (12.0-16.0); Imm Gran Abs Auto 0.02 X10*3/uL (0.00-0.03); Imm Gran Pct Auto 0.4 % (0.0-0.4); Lymphocytes Absolute Auto 1.8 X10*3/uL (1.2-4.9); Lymphocytes Percent Auto 35.9 % (20-40); Mean Corpuscular HGB Conc 32.1 g/dl (31.0-35.0); Mean Corpuscular Hemoglobin 29.5 pg (27.0-33.0); Mean Corpuscular Volume 91.9 fL (80.0-98.0); Mean Platelet Volume 10.9 fL (9.4-12.3); Monocytes Absolute Auto 0.4 X10*3/uL (0.1-1.2); Monocytes Percent Auto 8.3 % (2-11); Neutrophils Absolute Auto 2.5 x10*3/uL (2.0-8.3); Neutrophils Percent Auto 49.6 % (45-73); Platelet Count 200 X10*3/uL (160-400); Red Cell Distribution Width 13.1 % (11.0-16.0)
[2022-01-04 11:36] LABS: Erythrocyte Sedimentation Rate 42 MM/HR (0-20)
[2022-01-04 14:09] LABS: Anion Gap 14 (12-20); Blood Urea Nitrogen 17 mg/dL (9-16); Calcium 9.1 mg/dL (8.4-10.2); Carbon Dioxide 24 mmol/L (22-29); Chloride 107 mmol/L (96-108); Estimated Glomerular Filt Rate 56; Glucose Random 226 mg/dL (60-115); Potassium 4.4 mmol/L (3.3-5.1); Sodium 141 mmol/L (135-145)
[2022-01-04 14:15] LABS: Alanine Aminotransferase 24 U/L (0-31); Aspartate Amino Transferase 24 U/L (5-31); C Reactive Protein 0.45 mg/dL (< or = 0.50)
== END 2022-01-04 09:56 | disposition home or self-care (01) ==
LOC: HO.LAB 09:55
PROVIDERS: Internal Medicine Rheumatology; PCP Family Medicine; Visit Provider Family Medicine
DX: Z01.818 Encounter for other preprocedural examination (principal); M06.00 Rheumatoid arthritis without rheumatoid factor, unspecified site; Z79.899 Other long term (current) drug therapy
CPT/HCPCS: 36415; 80048; 84450; 84460; 85025; 85652; 86140; 93005

== ENCOUNTER → 2022-01-19 13:47 | Outpatient (BNVA) | payer OTHER, SELFPAY | PROVIDERS: PCP Family Medicine; Visit Provider Physician Assistant | DX: M87.011 Idiopathic aseptic necrosis of right shoulder (principal) | CPT/HCPCS: 99212 ==

== ENCOUNTER 2022-01-20 22:38 | Emergency (ER) | payer OTHER, SELFPAY ==
[2022-01-20 22:39] VITALS: BP 206/94; PULSE 100; RESP 18; TEMP 36.7; O2SAT 97; BMI 27.1
[2022-01-21 00:36] VITALS: BP 147/50; PULSE 89; RESP 18; O2SAT 98
--- NOTE | 2022-01-21 00:38 | ED_ITS ---
HPI - Allergic Reaction General Chief complaint: Allergic Reaction Stated complaint: Allergic reaction Time Seen by Provider: 01/21/22 00:33 Source: patient Mode of arrival: ambulatory Limitations: no limitations History of Present Illness HPI narrative: Patient with history of allergic to lobster by mistake she had salad containing lobster at around 18:00 patient started throwing up at 21:00 with diarrhea multiple times similar this has happened in the past when she has by mistake seafood. No rash noted shortness of breath no lip or tongue swelling Related Data Home Medications Medication Instructions Recorded Confirmed aspirin 81 mg tablet,delayed 81 mg PO DAILY 06/01/20 01/10/22 release cholecalciferol (vitamin D3) 50 50 mcg PO DAILY 06/01/20 01/10/22 mcg (2,000 unit) tablet duloxetine 60 mg capsule,delayed 60 mg PO BID 06/01/20 01/10/22 release ezetimibe 10 mg tablet 10 mg PO DAILY 06/01/20 01/11/22 fenofibrate 160 mg tablet 160 mg PO DAILY 06/01/20 01/10/22 fexofenadine 180 mg tablet 180 mg PO DAILY 06/01/20 01/10/22 fluticasone 500 mcg-salmeterol 50 1 inh inhalation DAILY 06/01/20 01/10/22 mcg/dose blistr powdr for inhalation folic acid 1 mg tablet 1 mg PO DAILY 06/01/20 01/10/22 gabapentin 400 mg capsule 400 mg PO TID 06/01/20 01/10/22 metformin 500 mg tablet,extended 500 mg PO BID 06/01/20 01/10/22 release 24 hr montelukast 10 mg tablet 10 mg PO DAILY 06/01/20 01/10/22 quetiapine 200 mg tablet 200 mg PO BEDTIME 06/01/20 01/10/22 rosuvastatin 40 mg tablet 40 mg PO DAILY 06/01/20 01/10/22 sulfasalazine 500 mg tablet 1,000 mg PO BID 06/01/20 01/10/22 clopidogrel 75 mg tablet 75 mg PO DAILY 11/05/20 01/10/22 midodrine 5 mg tablet 5 mg PO BID 11/05/20 01/10/22 albuterol sulfate 90 mcg/actuation 2 puff inhalation Q4-6H PRN 01/10/22 01/10/22 aerosol inhaler (Ventolin HFA) Wheezing buspirone 10 mg tablet 1 tab PO BID 01/10/22 01/10/22 calcium carbonate 600 mg-vitamin 1 tab PO BID 01/10/22 01/10/22 D3 10 mcg (400 unit) tablet ipratropium 0.5 mg-albuterol 3 mg ml inhalation 01/10/22 (2.5 mg base)/3 mL nebulization soln lidocaine 5 % topical ointment ea topical 01/10/22 tramadol 50 mg tablet 1 tab PO BID PRN Pain 01/10/22 01/10/22 Previous Rx's Medication Instructions Recorded acetaminophen 500 mg tablet 500 mg PO Q6H PRN pain #30 tabs 11/22/21 diphenhydramine HCl 25 mg capsule 25 mg PO Q6H PRN allergy symptoms 01/21/22 (Benadryl) #30 caps ondansetron 4 mg disintegrating 4 mg PO Q6-8H PRN nausea and 01/21/22 tablet vomiting #7 tabs Allergies Allergy/AdvReac Type Severity Reaction Status Date / Time lobster Allergy Nausea and Uncoded 01/20/22 22:46 Vomiting PMFSH Past Medical History Medical History AAA (abdominal aortic aneurysm) Asthma CAD (coronary artery disease) Carotid arterial disease Chronic venous insufficiency COPD (chronic obstructive pulmonary disease) Diabetes Elevated cholesterol HTN (hypertension) PVD (peripheral vascular disease) Rheumatoid arthritis Subclavian artery stenosis Surgical History History of colonoscopy Hx of endoscopy Hx of removal of cyst Family History Family History Father No problems noted. 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 Oriented X3. No acute distress. ENT: Pharynx normal. Oral Mucosa moist Neck: Normal inspection. Neck supple. CVS: Normal heart rate and rhythm. Pulses normal. Respiratory: No respiratory distress. Equal air entry bilateral, no wheezing /rales/rhonchi Abdomen: Soft and nontender. Bowel sounds are present, no mass palpable, no CVA tenderness Skin: Skin warm and dry. Normal skin color. Normal skin turgor. Extremities: No lower extremity edema. No calf tenderness Neuro: Oriented X 3. No motor deficit. MDM - Allergic Reaction MDM Narrative Medical decision making narrative: Patient with anaphylaxis secondary to seafood with GI symptoms improved after Benadryl and Solu-Medrol feeling much much better now taking p.o. fluids discharge patient home on Benadryl Discharge Plan Discharge Clinical Impression: Allergic reaction Patient Disposition: Home, Self-Care Instructions: General Allergic Reaction (ED) Additional Instructions: You had allergic reaction to lobster Continue to take Benadryl 1 tablet every 6 hours as needed Report to the ER if worsening of the symptoms Tuviste shiva reacci?n al?rgica a la langosta. Contin?e tomando Benadryl 1 tableta cada 6 horas seg?n sea necesario Informar a urgencias si empeoran los s?ntomas Prescriptions: New ondansetron 4 mg tablet,disintegrating 4 mg PO Q6-8H PRN (Reason: nausea and vomiting) Qty: 7 0RF diphenhydramine HCl [Benadryl] 25 mg capsule 25 mg PO Q6H PRN (Reason: allergy symptoms) Qty: 30 0RF No Action midodrine 5 mg tablet 5 mg PO BID clopidogrel 75 mg tablet 75 mg PO DAILY acetaminophen 500 mg tablet 500 mg PO Q6H PRN (Reason: pain) Qty: 30 0RF ipratropium-albuterol 0.5 mg-3 mg(2.5 mg base)/3 mL solution for nebulization INHALATION tramadol 50 mg tablet 1 tab PO BID PRN (Reason: Pain) buspirone 10 mg tablet 1 tab PO BID albuterol sulfate [Ventolin HFA] 90 mcg/actuation HFA aerosol inhaler 2 puff inhalation Q4-6H PRN (Reason: Wheezing) calcium carbonate-vitamin D3 600 mg-10 mcg (400 unit) tablet 1 tab PO BID lidocaine 5 % ointment topical sulfasalazine 500 mg tablet 1,000 mg PO BID cholecalciferol (vitamin D3) 50 mcg (2,000 unit) tablet 50 mcg PO DAILY fenofibrate 160 mg tablet 160 mg PO DAILY duloxetine 60 mg capsule,delayed release(DR/EC) 60 mg PO BID rosuvastatin 40 mg tablet 40 mg PO DAILY metformin 500 mg tablet extended release 24 hr 500 mg PO BID ezetimibe 10 mg tablet 10 mg PO DAILY montelukast 10 mg tablet 10 mg PO DAILY folic acid 1 mg tablet 1 mg PO DAILY fluticasone propion-salmeterol 500-50 mcg/dose blister with device 1 inh inhalation DAILY aspirin 81 mg tablet,delayed release (DR/EC) 81 mg PO DAILY fexofenadine 180 mg tablet 180 mg PO DAILY gabapentin 400 mg capsule 400 mg PO TID quetiapine 200 mg tablet 200 mg PO BEDTIME Interventions: ED Discharge Assessment Last Done: 01/21/22 03:23 Discharge Date/Time: 01/21/22 03:24 Print Language: Senegalese
[2022-01-21] MEDS: 0.9 % Sodium Chloride 1,000 ML 999 ML IV (01:10)
[2022-01-21] MEDS: methylPREDNISolone Sod Succ 125 MG/2 ML VIAL IVPUSH (01:13)
[2022-01-21] MEDS: diphenhydrAMINE HCL 50 MG/ML VIAL 25 MG IVPUSH (01:13)
[2022-01-21] MEDS: ondansetron HCL 4 MG/2 ML VIAL IVPUSH (01:13)
[2022-01-21 02:43] VITALS: BP 149/55; PULSE 95; RESP 18; O2SAT 94
== END 2022-01-21 03:24 | disposition home or self-care (01) ==
PROVIDERS: Emergency Provider Internal Medicine; PCP Family Medicine
DX: T78.1XXA Other adverse food reactions, not elsewhere classified, initial encounter (principal); R11.10 Vomiting, unspecified; R19.7 Diarrhea, unspecified; X58.XXXA Exposure to other specified factors, initial encounter; E11.9 Type 2 diabetes mellitus without complications; I10 Essential (primary) hypertension; E78.5 Hyperlipidemia, unspecified; Z79.82 Long term (current) use of aspirin; Z79.84 Long term (current) use of oral hypoglycemic drugs; Z79.02 Long term (current) use of antithrombotics/antiplatelets; Z79.899 Other long term (current) drug therapy
CPT/HCPCS: 96361; 96374; 96375; 99284; 99285; J1200; J2405; J2930

== ENCOUNTER 2022-01-23 15:23 | Outpatient (REF) | payer OTHER, SELFPAY ==
--- NOTE | ~2022-01-23 | CT_ITS ---
EXAMINATION: CT SHOULDER WITHOUT CONTRAST, RIGHT CLINICAL INFORMATION: Idiopathic aseptic necrosis of unspecified bone. COMPARISON: Shoulder radiographs dated 11/22/2021. MRI dated 07/05/2019. TECHNIQUE: Axial multidetector volumetric imaging was obtained through the shoulder without intravenous contrast material. Multiplanar reformatted images were submitted. This CT examination was performed using dose optimization techniques as appropriate, variously including the following: *Automated exposure control *Adjustment of mA and/or kV according to patient size (this includes techniques or standardized protocols for targeted exams where dose is matched to indication/reason for exam; i.e. extremities or head) *Use of iterative reconstruction technique DLP: 226 mGy-cm FINDINGS: At the superomedial aspect of the humeral head, there is a subarticular avascular necrosis with a depth of 0.9 cm and sclerosis of the necrotic zone. There are subtle peripheral cortical breaks in the region of avascular necrosis, most notably anteriorly and posteriorly. A corresponding trabecular fracture is evident at the deep margin of the infarct zone. The degree of collapse has minimally progressed as compared to the prior MRI from 07/05/2019. No appreciable osteochondral displacement. Mild osteoarthritis at the glenohumeral joint is characterized by mild joint space narrowing and tiny marginal osteophytes. No glenoid retroversion or erosion. .Glenoid retroversion: 4 degrees Glenoid vault depth: 22 mm There is mild degenerative arthritis of the acromioclavicular joint. The undersurface of the acromion is curved with no subacromial spurs. Imaged portion of the clavicle is intact. The included portions of the ribs and chest wall are intact without fractures or lesions. Centrilobular emphysema is noted at the right lung. No axillary adenopathy. There is no appreciable glenohumeral joint effusion. There is no rotator cuff muscle atrophy. CT/CT shoulder RT wo con IMPRESSION: Subarticular avascular necrosis at the right humeral head with subtle articular cortical depression as well as peripheral cortical breaks. Mild glenohumeral and acromioclavicular osteoarthritis.
== END 2022-01-23 15:24 | disposition home or self-care (01) ==
LOC: HO.CT 15:23
PROVIDERS: PCP Family Medicine; Visit Provider Physician Assistant
DX: M87.00 Idiopathic aseptic necrosis of unspecified bone (principal)
CPT/HCPCS: 73200

== ENCOUNTER 2022-01-24 07:12 | Inpatient (IN) | payer OTHER, SELFPAY ==
[2022-01-11 11:55] VITALS: BP 141/61; PULSE 64; RESP 16; O2SAT 96; BMI 27.6
--- NOTE | 2022-01-11 12:09 | P.CONAN_ITS ---
Documented by User: Gisela Ambrocio NP 01/11/22 12:16 HPI - Anesthesia Eval Consult details Narrative: 71yo F for Right Shoulder Total Repair PCP and cardiology clearance pending. Methotrexate for RA. [facility] Active Problems Active Problems: All Active Problems (Updated 01/10/22 @ 11:27 by Tata Sheets RN) Hx of colonic polyps (Acute) Avascular necrosis of bone of shoulder (Acute) Seronegative rheumatoid arthritis (Acute) Osteoporosis (Acute) Long-term use of immunosuppressant medication (Acute) Past Medical History Medical History AAA (abdominal aortic aneurysm) Asthma CAD (coronary artery disease) Carotid arterial disease Chronic venous insufficiency COPD (chronic obstructive pulmonary disease) Diabetes Elevated cholesterol HTN (hypertension) PVD (peripheral vascular disease) Rheumatoid arthritis Subclavian artery stenosis Family History Family History Father No problems noted. 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 If so, by whom?: No Are you DNR?: No Advance Directives: No Advance Directives Information Provided: Yes (Given to patient at PAT Appointment) Advance Directives on File: No Recently lost weight without trying: No Eating poorly because of decreased appetite: No Nutrition Risks: No Nutritional Risk Patient : No Poor oral hygiene: Yes (Full upper dentures) Meds Allergies Allergy/AdvReac Type Severity Reaction Status Date / Time lobster Allergy Nausea and Uncoded 01/20/22 22:46 Vomiting Home Medications Medication Instructions Recorded Confirmed Last Taken Type aspirin 81 mg tablet,delayed 81 mg PO DAILY 06/01/20 01/10/22 01/17/22 History release cholecalciferol (vitamin D3) 50 50 mcg PO DAILY 06/01/20 01/10/22 01/23/22 History mcg (2,000 unit) tablet duloxetine 60 mg capsule,delayed 60 mg PO BID 06/01/20 01/10/22 01/23/22 History release ezetimibe 10 mg tablet 10 mg PO DAILY 06/01/20 01/11/22 01/23/22 History fenofibrate 160 mg tablet 160 mg PO DAILY 06/01/20 01/10/22 01/23/22 History fexofenadine 180 mg tablet 180 mg PO DAILY 06/01/20 01/10/22 01/23/22 History fluticasone 500 mcg-salmeterol 50 1 inh inhalation BID 06/01/20 01/24/22 01/24/22 History mcg/dose blistr powdr for inhalation folic acid 1 mg tablet 1 mg PO DAILY 06/01/20 01/10/22 01/23/22 History metformin 500 mg tablet,extended 500 mg PO BID 06/01/20 01/10/22 01/23/22 History release 24 hr montelukast 10 mg tablet 10 mg PO DAILY 06/01/20 01/10/22 01/23/22 History rosuvastatin 40 mg tablet 40 mg PO DAILY 06/01/20 01/10/22 01/23/22 History sulfasalazine 500 mg tablet 1,000 mg PO BID 06/01/20 01/10/22 01/23/22 History clopidogrel 75 mg tablet 75 mg PO DAILY 11/05/20 01/10/22 01/17/22 History albuterol sulfate 90 mcg/actuation 2 puff inhalation Q4-6H PRN 01/10/22 01/10/22 01/24/22 History aerosol inhaler (Ventolin HFA) Wheezing buspirone 10 mg tablet 1 tab PO BID 01/10/22 01/10/22 01/23/22 History calcium carbonate 600 mg-vitamin 1 tab PO BID 01/10/22 01/10/22 01/23/22 History D3 10 mcg (400 unit) tablet ipratropium 0.5 mg-albuterol 3 mg ml inhalation 01/10/22 01/23/22 History (2.5 mg base)/3 mL nebulization soln tramadol 50 mg tablet 1 tab PO BID PRN Pain 01/10/22 01/10/22 01/10/22 History evolocumab 140 mg/mL subcutaneous 1 ea subcut Q14D 01/24/22 01/24/22 01/12/22 History pen injector (Hortensia Vera) gabapentin 400 mg capsule 1 cap PO DAILY 01/24/22 01/24/22 01/23/22 History ketorolac 0.5 % eye drops 1 drp ophthalmic-Right TID 01/24/22 01/24/22 01/23/22 History midodrine 2.5 mg tablet 1 tab PO BID 01/24/22 01/24/22 01/23/22 History prednisolone acetate 1 % eye 1 drp ophthalmic-Right TID 01/24/22 01/24/22 01/23/22 History drops,suspension quetiapine 100 mg tablet 1 tab PO BEDTIME 01/24/22 01/24/22 01/23/22 History Exam Exam Date and Time: January 11, 2022 1209 Height,Weight and Vital Signs: Height 5 ft 3 in Weight 70.76 kg Last Vital Signs Pulse 64 01/11/22 11:55 Resp 16 01/11/22 11:55 BP 141/61 H 01/11/22 11:55 Pulse Ox 96 01/11/22 11:55 O2 Del Method 01/11/22 11:55 Pertinent Lab Results Pertinent Lab Results: Laboratory Tests 01/04/22 01/04/22 10:25 10:25 WBC 5.0 Hgb 12.4 Hct 38.6 Plt Count 200 Sodium 141 Potassium 4.4 Chloride 107 Carbon Dioxide 24 BUN 17 H Creatinine 0.98 Narrative Narrative: EKG 01/2022 Vent. Rate : 072 BPM ? ? Atrial Rate : 072 BPM ?? P-R Int : 188 ms? QRS Dur : 064 ms ? ? QT Int : 398 ms ? ? ? P-R-T Axes : 069 015 053 degrees ?? QTc Int : 435 ms ? Normal sinus rhythm Normal ECG When compared with ECG of 22-NOV-2021 12:53, No significant change was found Airway Mallampati Class: I TM Dist: >3cm Neck ROM: Full Denture: Upper Loose/Missing/Broken Teeth: Lower (intact) Heart: RRR Lungs: CTAB Assessment and Plan Assessment Anesthesia Assessment: Anesthesia Plan Discussed and PAT Visit Final Anesthetic Review Family History of Problems with Anesthesia: No History of Problems with Anesthesia: No Documented by User: Parrish Mendes MD 01/24/22 18:31 HPI - Anesthesia Eval Consult details Narrative: 71yo F for Right Shoulder Total Repair PCP and cardiology cleared Methotrexate for RA. [facility] Past Medical History Medical History AAA (abdominal aortic aneurysm) Asthma CAD (coronary artery disease) Carotid arterial disease Chronic venous insufficiency COPD (chronic obstructive pulmonary disease) Diabetes Elevated cholesterol HTN (hypertension) PVD (peripheral vascular disease) Rheumatoid arthritis Subclavian artery stenosis Family History Family History Father No problems noted. 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 If so, by whom?: No Are you DNR?: No Advance Directives: No Advance Directives Information Provided: Yes (Given to patient at PAT Appointment) Advance Directives on File: No Recently lost weight without trying: No Eating poorly because of decreased appetite: No Nutrition Risks: No Nutritional Risk Patient : No Poor oral hygiene: Yes (Full upper dentures) Meds Allergies Allergy/AdvReac Type Severity Reaction Status Date / Time lobster Allergy Nausea and Uncoded 01/20/22 22:46 Vomiting Home Medications Medication Instructions Recorded Confirmed Last Taken Type aspirin 81 mg tablet,delayed 81 mg PO DAILY 06/01/20 01/10/22 01/17/22 History release cholecalciferol (vitamin D3) 50 50 mcg PO DAILY 06/01/20 01/10/22 01/23/22 History mcg (2,000 unit) tablet duloxetine 60 mg capsule,delayed 60 mg PO BID 06/01/20 01/10/22 01/23/22 History release ezetimibe 10 mg tablet 10 mg PO DAILY 06/01/20 01/11/22 01/23/22 History fenofibrate 160 mg tablet 160 mg PO DAILY 06/01/20 01/10/22 01/23/22 History fexofenadine 180 mg tablet 180 mg PO DAILY 06/01/20 01/10/22 01/23/22 History fluticasone 500 mcg-salmeterol 50 1 inh inhalation BID 06/01/20 01/24/22 01/24/22 History mcg/dose blistr powdr for inhalation folic acid 1 mg tablet 1 mg PO DAILY 06/01/20 01/10/22 01/23/22 History metformin 500 mg tablet,extended 500 mg PO BID 06/01/20 01/10/22 01/23/22 History release 24 hr montelukast 10 mg tablet 10 mg PO DAILY 06/01/20 01/10/22 01/23/22 History rosuvastatin 40 mg tablet 40 mg PO DAILY 06/01/20 01/10/22 01/23/22 History sulfasalazine 500 mg tablet 1,000 mg PO BID 06/01/20 01/10/22 01/23/22 History clopidogrel 75 mg tablet 75 mg PO DAILY 11/05/20 01/10/22 01/17/22 History albuterol sulfate 90 mcg/actuation 2 puff inhalation Q4-6H PRN 01/10/22 01/10/22 01/24/22 History aerosol inhaler (Ventolin HFA) Wheezing buspirone 10 mg tablet 1 tab PO BID 01/10/22 01/10/22 01/23/22 History calcium carbonate 600 mg-vitamin 1 tab PO BID 01/10/22 01/10/22 01/23/22 History D3 10 mcg (400 unit) tablet ipratropium 0.5 mg-albuterol 3 mg ml inhalation 01/10/22 01/23/22 History (2.5 mg base)/3 mL nebulization soln tramadol 50 mg tablet 1 tab PO BID PRN Pain 01/10/22 01/10/22 01/10/22 History evolocumab 140 mg/mL subcutaneous 1 ea subcut Q14D 01/24/22 01/24/22 01/12/22 History pen injector (Hortensia Vera) gabapentin 400 mg capsule 1 cap PO DAILY 01/24/22 01/24/22 01/23/22 History ketorolac 0.5 % eye drops 1 drp ophthalmic-Right TID 01/24/22 01/24/22 01/23/22 History midodrine 2.5 mg tablet 1 tab PO BID 01/24/22 01/24/22 01/23/22 History prednisolone acetate 1 % eye 1 drp ophthalmic-Right TID 01/24/22 01/24/22 01/23/22 History drops,suspension quetiapine 100 mg tablet 1 tab PO BEDTIME 01/24/22 01/24/22 01/23/22 History Exam Airway Mallampati Class: II Loose/Missing/Broken Teeth: Yes (Chipped tooth , loose tooth ) Assessment and Plan Assessment Anesthesia Assessment: Chart Reviewed Final Anesthetic Review NPO: Yes ASA Class: III Final Preanesthetic Review: Meds/Allgs Chart Reviewed, Consent Obtained/Reviewed and Anes Risks/Benef Reviewed Patient Risk: Intermediate Procedure Risk: Intermediate Anesthetic Plan Anesthetic Plan: GA and Regional Block Disposition: Inp. Admit - Standard Bed
[2022-01-11 14:08] LABS: Estimated Average Glucose 131 mg/dL; Hemoglobin A1c % 6.2 %
[2022-01-11 14:32] LABS: MRSA Nasal PCR NEGATIVE (Negative); SA Nasal PCR NEGATIVE (Negative)
[2022-01-24] VITALS (18 sets, daily range): BP systolic 119–174; BP diastolic 47–69; PULSE 69–87; RESP 14–20; TEMP 36.2–37.2; O2SAT 93–97
--- NOTE | ~2022-01-24 | XR_ITS ---
EXAMINATION: XR CHEST CLINICAL INFORMATION: Hypoxia COMPARISON: CXR from 03/10/2021. Chest CT from 11/06/2017. TECHNIQUE: Frontal view of the chest was obtained. FINDINGS: Lungs are hypoinflated and this causes crowding of bronchovascular structures in the bases. There appear to be a few minimal linear opacities of atelectasis at the bases. No pulmonary edema, airspace disease or pleural effusion. Cardiac silhouette is normal in size. The hilar contours are normal. There is atherosclerotic calcification of the aorta. Normal glenohumeral alignment, status post right shoulder arthroplasty with skin kelly overlying the shoulder. 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 XR/XR chest 1V IMPRESSION: Lungs are suboptimally evaluated due to the hypoinflation. There appears to be minimal atelectasis at the lung bases. Otherwise, lungs are unremarkable.
--- NOTE | ~2022-01-24 | XR_ITS ---
EXAMINATION: XR SHOULDER, RIGHT CLINICAL INFORMATION: Post total shoulder replacement COMPARISON: Previous right shoulder x-ray November [address] January 2022 TECHNIQUE: 2 of the right shoulder. FINDINGS: There is a new right shoulder replacement satisfactory position. No fracture or dislocation is seen. There are postoperative changes to the soft tissues. XR/XR shoulder RT 1V IMPRESSION: Satisfactory appearance of right shoulder replacement.
[2022-01-24 07:36] LABS: Glucose, Whole Blood 108 mg/dL (60-115)
[2022-01-24 07:46] LABS: COVID-19 Test Negative (Negative)
--- NOTE | 2022-01-24 07:52 | MHC.SHP ---
Pre-Procedural Eval Section A Date of Service: 01/24/22 The patient is an INPATIENT: No Changes since office visit: Yes Patient answered all questions; No Cold of Flu in the past 2 weeks, No New Medical Problems and No Changes in Medication The History & Physical has been completed within 30 days and I have reviewed it.: Yes Section B Chief Complaint: TSA Right Allergies: Allergies Allergy/AdvReac Type Severity Reaction Status Date / Time lobster Allergy Nausea and Uncoded 01/20/22 22:46 Vomiting Plan I have reviewed the history and physical and performed a pertinent physical examination on my patient. No changes have occurred unless specified.
[2022-01-24] MEDS: Lactated Ringers 1,000 ML 100 ML IVCONT ×3 (08:36→22:16)
--- NOTE | 2022-01-24 11:50 | PM.OP ---
Brief Operative Note Date of Service: 01/24/22 Pre-op diagnosis: right shoulder AVN Post-op diagnosis: same Procedure: Right TSA Implants: Tornier small 40 cemented Cortiloc glenoid, size 1 nucleus with 44x18 HH Surgeon: Roger Watson MD Anesthesia: GETA and regional Was an Seals Engraver used for this Procedure?: Yes Seals Engraver: Alicia Sams Estimated blood loss (mL): 200 IV fluids (mL): 1,000 Pathology: other Condition: stable Disposition: PACU
--- NOTE | 2022-01-24 11:54 | P.OP_ITS ---
Operative Note Operative Note Date of Service: 01/24/22 Narrative: Date of Service: 01/24/22 Pre-op diagnosis: right shoulder AVN Post-op diagnosis: same Procedure: Right TSA Implants: Tornier small 40 cemented Cortiloc glenoid, size 1 nucleus with 44x18 HH Surgeon: Roger Watson MD Anesthesia: GETA and regional Was an Certified Adapted Physical Educator used for this Procedure?: Yes Certified Adapted Physical Educator: Alicia Sams Estimated blood loss (mL): 200 IV fluids (mL): 1,000 Pathology: other Condition: stable Disposition: PACU Procedure in detail: Patient was brought to the operating room and placed in the beach chair position on the surgical table. The limb was prepped and draped in standard sterile fashion and a time out was called to identify proper site, proper procedure and IV antibiotics per weight were administered. I began by making a deltopectoral incision from the coracoid to the pectoralis insertion.? Blunt dissection identified the cephalic vein which was retracted laterally.? Blunt dissection was taken down to the 3 sisters which were cauterized.? I then made a full- thickness capsulotomy including the subscapularis. A 1 cm cuff was left for repair.? This was then tagged and the arm was externally rotated and extended and the head was dislocated. A biceps tenotomy was performed the facilitate d islocation.? The humeral head was eburnated. The RTC was intact. An anatomic head cut was made in patient's natural inclination (approximately 132 degree) .? A k wire was used over a guide in the middle of the head. THis was drilled and punched and a protective plate was placed. I then turned my attention to the glenoid.? Posterior anterior and superior glenoid retractors were placed and the biceps was tenotomized and labral tissue was removed.?Her natural anatomy was matched and a small guide was placed in aproximately 5 degrees of retroversion and neutral inclination.? Using a wedge Reamer I reamed down to bony contact circumferentially and placed the size 40M glenoid drill guide. My final glenoid was cemented in place while applying axial compression. Once the cement was dry all excess cement was removed. I then returned to the humerus where I trialed a?1 nucleus with a 44x18 head which matched the patient's HH on the back table. I was satisfied with the height and the stability. I irrigated copiously and then implanted in the final implants.I then irrigated and repaired the subscapularis with fiberwire.? I closed in a layered fashion with absorbable suture and kelly and the patient was placed in a sterile dressing and an abduction sling.? She was extubated brought to recovery room stable condition there were no known complications.
[2022-01-24] MEDS: oxyCODONE HCl Immed Release 5 MG TABLET PO ×2 (13:47→22:15)
[2022-01-24] MEDS: HYDROmorphone HCl 0.5 MG/0.5 ML SYRINGE 0.25 MG IVPUSH ×3 (13:48→20:29)
[2022-01-24] MEDS: ceFAZolin Sodium/Dextrose,Iso 2 GM/50 ML PIGGYBACK IV (15:35)
[2022-01-24 19:51] LABS: Glucose, Whole Blood 102 mg/dL (60-115)
[2022-01-24] MEDS: QUEtiapine Fumarate 100 MG TABLET PO (20:27)
[2022-01-24] MEDS: DULoxetine HCl 60 MG CAPSULE.DR PO (20:27)
[2022-01-24] MEDS: oxyCODONE HCl ER 10 MG TAB.ER.12H PO (20:28)
[2022-01-24] MEDS: Docusate Sodium 100 MG CAPSULE PO (20:28)
[2022-01-24] MEDS: busPIRone HCl 10 MG TABLET PO (20:28)
[2022-01-24] MEDS: Celecoxib 200 MG CAPSULE PO (20:28)
[2022-01-24] MEDS: Acetaminophen 325 MG TABLET 650 MG PO (22:15)
[2022-01-25] VITALS (7 sets, daily range): BP systolic 88–125; BP diastolic 41–62; PULSE 71–84; RESP 14–18; TEMP 35.7–37.1; O2SAT 88–97
[2022-01-25] MEDS: Acetaminophen 325 MG TABLET 650 MG PO (04:59)
[2022-01-25] MEDS: oxyCODONE HCl Immed Release 5 MG TABLET PO (05:00)
--- NOTE | 2022-01-25 06:27 | P.CONHOSP_ITS ---
History of Present Illness Data of Consult Service Date: 01/25/22 Primary Care Provider: Teresita Munroe DO HPI 71-year-old [place]-speaking female with past medical history of AAA, CAD, chronic venous insufficiency, COPD, diabetes, hypertension, rheumatoid arthritis who presents for an elective right total shoulder arthroplasty done by Orthopedic surgery. We are consulted for medical management/ diabetes. Patient is [place]-speaking, history is obtained with the help of commercial lending relationship manager. Patient reports pain in the right shoulder, she has been peeing and passing gas with no problems, uses metformin for diabetes at home. At this time she denies any shortness of breath, no chest pain, no abdominal pain, and no urinary symptoms. Vitals reviewed, within normal range Review of Systems Review of Systems: Yes all other systems are reviewed and are negative [facility] Medical History (Updated 01/25/22 @ 06:30 by Serena Ortega MD) AAA (abdominal aortic aneurysm) Asthma CAD (coronary artery disease) Carotid arterial disease Chronic venous insufficiency COPD (chronic obstructive pulmonary disease) Diabetes Elevated cholesterol HTN (hypertension) PVD (peripheral vascular disease) Rheumatoid arthritis Subclavian artery stenosis Family History Father No problems noted. Mother Family history of high blood pressure Hx of type 1 diabetes mellitus Surgical History (Updated 01/25/22 @ 06:30 by Serena Ortega MD) History of colonoscopy Hx of endoscopy Hx of removal of cyst Social History Are you a primary manager progressive care to a significant other at home: No Do you presently have visiting nurse or other home services: Yes (DBA MANAGER - daily) Alcohol intake: never Patient Tobacco Use Status: Never used Tobacco Tobacco use type: Cigarette Use of substances other than those prescribed or required for medical reasons: No Currently Displaying Signs/Symptoms of Drug Intoxication Withdrawal: No Have you been hit, kicked, punched, or otherwise hurt by someone within the past year? If so, by whom?: No Are you DNR?: No Advance Directives: No Advance Directives Information Provided: Yes (Given to patient at PAT Appointment) Advance Directives on File: No Recently lost weight without trying: No Eating poorly because of decreased appetite: No Nutrition Risks: No Nutritional Risk Patient : No Poor oral hygiene: Yes (Full upper dentures) Meds Allergies Allergy/AdvReac Type Severity Reaction Status Date / Time lobster Allergy Nausea and Uncoded 01/20/22 22:46 Vomiting Active Medications: Current Medications Acetaminophen (Acetaminophen 325 Mg Tablet) 650 mg PO Q6H PRN PRN Reason: Pain, Mild (Pain Scale 1-3) Last Admin: 01/25/22 04:59 Dose: 650 mg Buspirone HCl (Buspirone Hcl 10 Mg Tablet) 10 mg PO BID [facility] Last Admin: 01/24/22 20:28 Dose: 10 mg Celecoxib (Celecoxib 200 Mg Capsule) 200 mg PO BID [facility] Last Admin: 01/24/22 20:28 Dose: 200 mg Clopidogrel Bisulfate (Clopidogrel Bisulfate 75 Mg Tablet) 75 mg PO DAILY [facility] Dextrose (Dextrose 50 % 25 Gm/50 Ml Syringe) 25 gm IVPUSH Q15M PRN; Protocol PRN Reason: per Hypoglycemia Standing Ord. Docusate Sodium (Docusate Sodium 100 Mg Capsule) 100 mg PO BID [facility] Last Admin: 01/24/22 20:28 Dose: 100 mg Duloxetine HCl (Duloxetine Hcl 60 Mg Capsule.Dr) 60 mg PO BID [facility] Last Admin: 01/24/22 20:27 Dose: 60 mg Fenofibrate (Fenofibrate 160 Mg Tablet) 160 mg PO DAILY [facility] Fluticasone/Vilanterol (Fluticasone/Vilanterol 200/25 Blst.W.Dev) 1 puff INHALE DAILY [facility] Folic Acid (Folic Acid 1 Mg Tablet) 1 mg PO DAILY [facility] Gabapentin (Gabapentin 400 Mg Capsule) 400 mg PO DAILY [facility] Glucose (Glucose Gel 15 Gm Gel..Gram.) 15 gm PO Q15M PRN; Protocol PRN Reason: per Hypoglycemia Standing Ord. Hydromorphone HCl (Hydromorphone Hcl 0.5 Mg/0.5 Ml Syringe) 0.25 mg IVPUSH Q4H PRN; Protocol PRN Reason: Pain, Severe (Pain Scale 7-10) Last Admin: 01/24/22 20:29 Dose: 0.25 mg Lactated Ringer's (Lr) 1,000 mls @ 100 mls/hr IVCONT .Q10H [facility] Last Admin: 01/24/22 22:16 Dose: 100 mls/hr Insulin Human Lispro (Insulin Lispro 100 Unit/Ml 3 Ml Vial) 0 unit SUBCUT QIDACHS [facility]; Protocol Last Admin: 01/24/22 21:21 Dose: Not Given Loratadine (Loratadine 10 Mg Tablet) 10 mg PO DAILY [facility] Midodrine (Midodrine Hcl 2.5 Mg Tablet) 2.5 mg PO BID [facility] Last Admin: 01/24/22 21:22 Dose: Not Given Montelukast Sodium (Montelukast Sodium 10 Mg Tablet) 10 mg PO DAILY [facility] Ondansetron HCl (Ondansetron Hcl 4 Mg/2 Ml Vial) 4 mg IVPUSH Q8H PRN PRN Reason: Nausea and Vomiting Oxycodone HCl (Oxycodone Hcl Immed Release 5 Mg Tablet) 5 mg PO Q4H PRN PRN Reason: Pain, Moderate (Pain Scale 4-6 Last Admin: 01/25/22 05:00 Dose: 5 mg Oxycodone HCl (Oxycodone Hcl Er 10 Mg Tab.Er.12h) 10 mg PO BID [facility] Last Admin: 01/24/22 20:28 Dose: 10 mg Quetiapine Fumarate (Quetiapine Fumarate 100 Mg Tablet) 100 mg PO BEDTIME [facility] Last Admin: 01/24/22 20:27 Dose: 100 mg Sodium Chloride (0.9 % Sodium Chloride Flush 3 Ml Syringe) 3 ml IVFLUSH QSHIFT [facility] Last Admin: 01/24/22 23:47 Dose: Not Given Home Medications Medication Instructions Recorded Confirmed Last Taken Type aspirin 81 mg tablet,delayed 81 mg PO DAILY 06/01/20 01/10/22 01/17/22 History release cholecalciferol (vitamin D3) 50 50 mcg PO DAILY 06/01/20 01/10/22 01/23/22 History mcg (2,000 unit) tablet duloxetine 60 mg capsule,delayed 60 mg PO BID 06/01/20 01/10/22 01/23/22 History release ezetimibe 10 mg tablet 10 mg PO DAILY 06/01/20 01/11/22 01/23/22 History fenofibrate 160 mg tablet 160 mg PO DAILY 06/01/20 01/10/22 01/23/22 History fexofenadine 180 mg tablet 180 mg PO DAILY 06/01/20 01/10/22 01/23/22 History fluticasone 500 mcg-salmeterol 50 1 inh inhalation BID 06/01/20 01/24/22 01/24/22 History mcg/dose blistr powdr for inhalation folic acid 1 mg tablet 1 mg PO DAILY 06/01/20 01/10/22 01/23/22 History metformin 500 mg tablet,extended 500 mg PO BID 06/01/20 01/10/22 01/23/22 History release 24 hr montelukast 10 mg tablet 10 mg PO DAILY 06/01/20 01/10/22 01/23/22 History rosuvastatin 40 mg tablet 40 mg PO DAILY 06/01/20 01/10/22 01/23/22 History sulfasalazine 500 mg tablet 1,000 mg PO BID 06/01/20 01/10/22 01/23/22 History clopidogrel 75 mg tablet 75 mg PO DAILY 11/05/20 01/10/22 01/17/22 History albuterol sulfate 90 mcg/actuation 2 puff inhalation Q4-6H PRN 01/10/22 01/10/22 01/24/22 History aerosol inhaler (Ventolin HFA) Wheezing buspirone 10 mg tablet 1 tab PO BID 01/10/22 01/10/22 01/23/22 History calcium carbonate 600 mg-vitamin 1 tab PO BID 01/10/22 01/10/22 01/23/22 History D3 10 mcg (400 unit) tablet ipratropium 0.5 mg-albuterol 3 mg ml inhalation 01/10/22 01/23/22 History (2.5 mg base)/3 mL nebulization soln tramadol 50 mg tablet 1 tab PO BID PRN Pain 01/10/22 01/10/22 01/10/22 History evolocumab 140 mg/mL subcutaneous 1 ea subcut Q14D 01/24/22 01/24/22 01/12/22 History pen injector (Repatha Jarrodick) gabapentin 400 mg capsule 1 cap PO DAILY 01/24/22 01/24/22 01/23/22 History ketorolac 0.5 % eye drops 1 drp ophthalmic-Right TID 01/24/22 01/24/22 01/23/22 History midodrine 2.5 mg tablet 1 tab PO BID 01/24/22 01/24/22 01/23/22 History prednisolone acetate 1 % eye 1 drp ophthalmic-Right TID 01/24/22 01/24/22 01/23/22 History drops,suspension quetiapine 100 mg tablet 1 tab PO BEDTIME 01/24/22 01/24/22 01/23/22 History Physical Exam Vital Signs and Narrative: Vital Signs: Last Vital Signs Temp 98.7 F 01/25/22 04:00 Pulse 75 01/25/22 04:00 Resp 18 01/25/22 04:00 BP 125/62 01/25/22 04:00 Pulse Ox 97 01/25/22 04:00 O2 Del Method 01/25/22 04:00 O2 Flow Rate 2 01/25/22 04:00 BMI result Body Mass Index 27.6 Const: Other: she appears comfortable, and in no distress General: cooperative and no acute distress Orientation/consciousness: patient oriented x3 Eyes: General: appearance normal, both eyes and all related structures Resp: Effort & Inspection: normal respiratory effort Auscultation: clear to auscultation bilaterally Cardio: Rate: regular rate Rhythm: regular rhythm GI: Palpation (GI): Soft to palpation Auscultation: normal bowel sounds Skin: General skin exam: no rashes or lesions noted Neuro: General: patient oriented x3 Cognition (Neuro): normal cognition Extrem: General: Yes normal to inspection and Yes no pedal edema Results Labs Labs: Laboratory Results - last 24 hr 01/24/22 01/24/22 01/24/22 07:30 07:31 19:30 POC Glucose 108 102 COVID-19 (TREVOR) Negative COVID-19 Clin Com See Note Assessment and Plan (1) Status post total shoulder arthroplasty: Status: Acute (2) Diabetes: Status: Acute Plan 71-year-old female with past medical history of diabetes, hypertension who presents to the hospital for total right shoulder arthroplasty we are asked to see this patient for medical management/management of diabetes # diabetes - patient uses metformin at home - I would recommend holding the oral anti hyperglycemic and starting patient on low-dose sliding scale insulin- ordered - POC q.i.d. a.c. HS - and diabetic diet - metformin can be resumed on discharge # history of peripheral vascular disease - Lovenox has been continued for surgery, agree # status post total shoulder arthroplasty - pain management per Ortho thank you for this consult we will sign off on this patient unless are medical expertise is once again needed, please contact the hospitalist office
[2022-01-25 06:47] LABS: MANUAL DIFF FLAG NO
[2022-01-25 07:12] LABS: Basophils Percent Auto 0.4 % (0-2); Eosinophils Absolute Auto 0.1 X10*3/uL (0.0-0.4); Eosinophils Percent Auto 2.4 % (0-4); Hematocrit 33.4 % (37.0-47.0); Imm Gran Abs Auto 0.02 X10*3/uL (0.00-0.03); Imm Gran Pct Auto 0.4 % (0.0-0.4); Lymphocytes Absolute Auto 1.7 X10*3/uL (1.2-4.9); Lymphocytes Percent Auto 31.5 % (20-40); Mean Corpuscular HGB Conc 32.9 g/dl (31.0-35.0); Mean Corpuscular Hemoglobin 30.3 pg (27.0-33.0); Mean Platelet Volume 11.2 fL (9.4-12.3); Monocytes Absolute Auto 0.6 X10*3/uL (0.1-1.2); Monocytes Percent Auto 10.9 % (2-11); Neutrophils Absolute Auto 2.9 x10*3/uL (2.0-8.3); Neutrophils Percent Auto 54.4 % (45-73); Platelet Count 210 X10*3/uL (160-400); Red Blood Count 3.63 X10*6/uL (4.20-5.50); Red Cell Distribution Width 13.3 % (11.0-16.0); White Blood Count 5.3 X10*3/uL (4.8-10.8)
[2022-01-25 07:29] LABS: Anion Gap 14 (12-20); Blood Urea Nitrogen 14 mg/dL (9-16); Calcium 8.5 mg/dL (8.4-10.2); Carbon Dioxide 25 mmol/L (22-29); Chloride 104 mmol/L (96-108); Creatinine Clr Calc Pharmacy 60.7; Estimated Glomerular Filt Rate > 60; Glucose Fasting 170 mg/dL (60-99); Potassium 3.6 mmol/L (3.3-5.1); Sodium 139 mmol/L (135-145)
[2022-01-25] MEDS: Lactated Ringers 1,000 ML 100 ML IVCONT (07:36)
--- NOTE | 2022-01-25 07:37 | P.PNOP_ITS ---
Subjective Subjective Date of Service: 01/25/22 Interval history: POD1 s/p RTSA. Patient is resting in bed comfortably. LARGE ENGINE ASSEMBLER at bedside obtaining vitals. Low 02 and soft BP. Nurse is alerting medicine. Pain is managed. No additional complaints. Physical Exam Vital Signs: Vital Signs: Last Vital Signs Temp 97 F 01/25/22 07:25 Pulse 75 01/25/22 04:00 Resp 18 01/25/22 07:25 BP 88/46 L 01/25/22 07:25 Pulse Ox 90 L 01/25/22 07:25 O2 Del Method 01/25/22 07:25 O2 Flow Rate 3 01/25/22 07:25 BMI result Body Mass Index 27.6 Const: General: cooperative, healthy appearing and no acute distress Resp: Effort & Inspection: normal respiratory effort and able to speak in complete sentences Cardio: Rate: regular rate Peripheral pulses: Peripheral pulses 2+ thr oughout GI: Palpation (GI): Soft to palpation Skin: Lesions: no lesions Rashes: no rashes Extrem: Other: Right shoulder Aquacel is clean, dry, and intact. Sensation intact. NVI. Procedures Date of Service Date of Service: 01/25/22 Progress Note: A&P Assessment and plan (1) Status post total shoulder arthroplasty: Status: Acute Plan Continue pain mgmnt Begin Lovenox dvt ppx begin PT for RTSA Dispo planning-Pending PT eval, pain mgmnt Time Spent With Patient Time: Total time spent is greater than 50% in coordination of care (as documented) at patient's floor/unit and/or counseling patient: Quality Stroke Does the patient have a stroke diagnosis?: No VTE Prior VTE?: No VTE Risk Level:: Medical - moderate - high VTE Device Contraindication: N/A - Device Ordered VTE Drug Contraindication: N/A - Med Ordered
[2022-01-25 07:43] LABS: Glucose, Whole Blood 140 mg/dL (60-115)
[2022-01-25] MEDS: Midodrine HCl 2.5 MG TABLET PO ×2 (08:13→21:20)
[2022-01-25] MEDS: Loratadine 10 MG TABLET PO (08:13)
[2022-01-25] MEDS: Clopidogrel Bisulfate 75 MG TABLET PO (08:13)
[2022-01-25] MEDS: Fenofibrate 160 MG TABLET PO (08:13)
[2022-01-25] MEDS: Montelukast Sodium 10 MG TABLET PO (08:13)
[2022-01-25] MEDS: Docusate Sodium 100 MG CAPSULE PO ×2 (08:13→21:20)
[2022-01-25] MEDS: Folic Acid 1 MG TABLET PO (08:14)
--- NOTE | 2022-01-25 09:37 | MHC.CM.PN ---
IMM ADDRESSED, WHITE COPY GIVEN TO PATIENT, YELLOW COPY FILED IN CHART SPNAISH SPEAKING NEEDS PROJECT INTERN PATIENT LIVES ALONE IN ELDER HOUSING HAS DAILY [employer] ASSISTANCE USES WALKER, WHEELCHAIR, HAS DM EQUIPMENT CCA NURSE SEES PATIENT EVERY 6 MONTHS AND ASSESSES PATIENT'S NEED FOR SERVICES PRETTY VEGA'Joce X3 PCP: DEANDRE ORTIZ FAMILY WILL TRANSPORT D/C PLAN: HOME RESUME [employer]; ANTICIPATE NEW [facility]
[2022-01-25] MEDS: DULoxetine HCl 60 MG CAPSULE.DR PO ×2 (10:34→21:20)
[2022-01-25] MEDS: Gabapentin 400 MG CAPSULE PO (10:34)
[2022-01-25] MEDS: busPIRone HCl 10 MG TABLET PO ×2 (10:34→21:20)
[2022-01-25] MEDS: Celecoxib 200 MG CAPSULE PO ×2 (10:34→21:20)
[2022-01-25] MEDS: Enoxaparin Sodium 40 MG/0.4 ML SYRINGE SUBCUT (10:35)
--- NOTE | 2022-01-25 10:38 | HO.POSTANES ---
Post Anesthesia Evaluation Post Anesthesia Evaluation Vital Signs: Vital Signs Temp Pulse Resp BP Pulse Ox O2 Del Method O2 Flow Rate 01/25/22 07:25 97 F 18 88/46 L 90 L Nasal Cannula 3 01/25/22 04:00 98.7 F 75 18 125/62 97 Nasal Cannula 2 01/24/22 23:59 98.7 F 87 18 119/57 L 97 Nasal Cannula 2 Anesthesia: Nerve Block and General Mental Status: Awake Pain Control: Satisfactory Nausea/Vomiting: None Hydration: Adequate Anesthesia-Related Issues: No Anes. Related Issues
[2022-01-25 10:54] LABS: Glucose, Whole Blood 219 mg/dL (60-115)
[2022-01-25] MEDS: Insulin Lispro 100 UNIT/ML 3 ML VIAL SUBCUT ×3 (11:12→21:19)
[2022-01-25] MEDS: Fluticasone/Vilanterol 200/25 BLST.W.DEV 1 PUFF INHALE (11:12)
--- NOTE | 2022-01-25 11:42 | MHC.CM.PN ---
HCP FORM COMPLETED. ORIGINAL AND COPIES TO PATIENT, COPY UPLOADED TO [facility], AND COPY FILED IN CHART. HCP IS SILVIA BULLOCK/SON [address] [place] [id number]
--- NOTE | 2022-01-25 11:51 | HO.PM.IMPN ---
Subjective Subjective Date of Service: 01/25/22 Interval History: history obtained via assistant professor of psychology patient sitting comfortably denies dizziness, no shortness of breath, denies cough, no chest pain, no palpitation no headache, admits to have good pain control, RN noted hypoxia currently on 3.5 L of oxygen finger oximetry 95%, patient has history of COPD not on home oxygen. Review of Systems [employer]IVER no headache no dizziness CVS no chest pain GI no nausea no vomiting no abdominal Review of Systems: Yes all other systems are reviewed and are negative Physical Exam Vital Signs: Vital Signs: Last Vital Signs Temp 97.6 F 01/25/22 10:59 Pulse 77 01/25/22 10:59 Resp 18 01/25/22 10:59 BP 89/41 L 01/25/22 10:59 Pulse Ox 91 L 01/25/22 10:59 O2 Del Method 01/25/22 10:59 O2 Flow Rate 2 01/25/22 10:59 BMI result Body Mass Index 27.6 Const: Other: General awake alert x3, no acute distress. Neck supple no JVD. CVS regular rate rhythm, Respiratory lungs clear to auscultation, no respiratory distress, no wheeze, no rhonchi. Gastrointestinal abdomen soft, nontender, bowel sounds audible, no guarding , no rigidity. Extremities no edema. Neuro nonfocal Skin no rash musculoskeletal right shoulder dressing in place Objective Data Active Medications Acetaminophen (Acetaminophen 325 Mg Tablet) 650 mg PO Q6H PRN PRN Reason: Pain, Mild (Pain Scale 1-3) Last Admin: 01/25/22 04:59 Dose: 650 mg Documented By: DARNELL Buspirone HCl (Buspirone Hcl 10 Mg Tablet) 10 mg PO BID [facility] Last Admin: 01/25/22 10:34 Dose: 10 mg Documented By: SAGAR Celecoxib (Celecoxib 200 Mg Capsule) 200 mg PO BID [facility] Last Admin: 01/25/22 10:34 Dose: 200 mg Documented By: SAGAR Clopidogrel Bisulfate (Clopidogrel Bisulfate 75 Mg Tablet) 75 mg PO DAILY [facility] Last Admin: 01/25/22 08:13 Dose: 75 mg Documented By: SAGAR Dextrose (Dextrose 50 % 25 Gm/50 Ml Syringe) 25 gm IVPUSH Q15M PRN; Protocol PRN Reason: per Hypoglycemia Standing Ord. Docusate Sodium (Docusate Sodium 100 Mg Capsule) 100 mg PO BID [facility] Last Admin: 01/25/22 08:13 Dose: 100 mg Documented By: SAGAR Duloxetine HCl (Duloxetine Hcl 60 Mg Capsule.Dr) 60 mg PO BID [facility] Last Admin: 01/25/22 10:34 Dose: 60 mg Documented By: SAGAR Enoxaparin Sodium (Enoxaparin Sodium 40 Mg/0.4 Ml Syringe) 40 mg SUBCUT Q24H [facility] Last Admin: 01/25/22 10:35 Dose: 40 mg Documented By: SAGAR Fenofibrate (Fenofibrate 160 Mg Tablet) 160 mg PO DAILY [facility] Last Admin: 01/25/22 08:13 Dose: 160 mg Documented By: SAGAR Fluticasone/Vilanterol (Fluticasone/Vilanterol 200/25 Blst.W.Dev) 1 puff INHALE DAILY [facility] Last Admin: 01/25/22 11:12 Dose: 1 puff Documented By: SAGAR Folic Acid (Folic Acid 1 Mg Tablet) 1 mg PO DAILY [facility] Last Admin: 01/25/22 08:14 Dose: 1 mg Documented By: SAGAR Gabapentin (Gabapentin 400 Mg Capsule) 400 mg PO DAILY [facility] Last Admin: 01/25/22 10:34 Dose: 400 mg Documented By: SAGAR Glucose (Glucose Gel 15 Gm Gel..Gram.) 15 gm PO Q15M PRN; Protocol PRN Reason: per Hypoglycemia Standing Ord. Hydromorphone HCl (Hydromorphone Hcl 0.5 Mg/0.5 Ml Syringe) 0.25 mg IVPUSH Q4H PRN; Protocol PRN Reason: Pain, Severe (Pain Scale 7-10) Last Admin: 01/24/22 20:29 Dose: 0.25 mg Documented By: DARNELL Lactated Ringer's (Lr) 1,000 mls @ 100 mls/hr IVCONT .Q10H [facility] Last Admin: 01/25/22 07:36 Dose: 100 mls/hr Documented By: SAGAR Insulin Human Lispro (Insulin Lispro 100 Unit/Ml 3 Ml Vial) 0 unit SUBCUT QIDACHS [facility]; Protocol Last Admin: 01/25/22 11:12 Dose: 4 unit Documented By: SAGAR Loratadine (Loratadine 10 Mg Tablet) 10 mg PO DAILY [facility] Last Admin: 01/25/22 08:13 Dose: 10 mg Documented By: SAGAR Midodrine (Midodrine Hcl 2.5 Mg Tablet) 2.5 mg PO BID [facility] Last Admin: 01/25/22 08:13 Dose: 2.5 mg Documented By: SAGAR Montelukast Sodium (Montelukast Sodium 10 Mg Tablet) 10 mg PO DAILY [facility] Last Admin: 01/25/22 08:13 Dose: 10 mg Documented By: SAGAR Ondansetron HCl (Ondansetron Hcl 4 Mg/2 Ml Vial) 4 mg IVPUSH Q8H PRN PRN Reason: Nausea and Vomiting Oxycodone HCl (Oxycodone Hcl Immed Release 5 Mg Tablet) 5 mg PO Q4H PRN PRN Reason: Pain, Moderate (Pain Scale 4-6 Last Admin: 01/25/22 05:00 Dose: 5 mg Documented By: DARNELL Oxycodone HCl (Oxycodone Hcl Er 10 Mg Tab.Er.12h) 10 mg PO BID [facility] Last Admin: 01/25/22 10:37 Dose: Not Given Documented By: SAGAR Non-Admin Reason: Physician Held Med Quetiapine Fumarate (Quetiapine Fumarate 100 Mg Tablet) 100 mg PO BEDTIME [facility] Last Admin: 01/24/22 20:27 Dose: 100 mg Documented By: DARNELL Sodium Chloride (0.9 % Sodium Chloride Flush 3 Ml Syringe) 3 ml IVFLUSH QSHIFT [facility] Last Admin: 01/25/22 07:30 Dose: Not Given Documented By: SAGAR Non-Admin Reason: IV Running Labs CBC & Chem 7: 01/25/22 05:50 01/25/22 05:50 Labs: Laboratory Results - last 24 hr 01/24/22 01/25/22 01/25/22 19:30 05:50 05:50 MCV 92.0 MCH 30.3 MCHC 32.9 RDW 13.3 Plt Count 210 MPV 11.2 Immature Gran % (Auto) 0.4 Neut % (Auto) 54.4 Lymph % (Auto) 31.5 [place] % (Auto) 10.9 Eos % (Auto) 2.4 Baso % (Auto) 0.4 Lymph # (Auto) 1.7 [place] # (Auto) 0.6 Eos # (Auto) 0.1 Baso # (Auto) 0.0 Abs Immat Gran (auto) 0.02 Absolute Neuts (auto) 2.9 Absolute Nucleated RBC 0.000 Nucleated RBC % (auto) 0.0 Anion Gap 14 Estim Creat Clear Calc 60.7 Estimated GFR > 60 POC Glucose 102 Fasting Glucose 170 H Calcium 8.5 D 01/25/22 01/25/22 07:22 10:47 MCV MCH MCHC RDW Plt Count MPV Immature Gran % (Auto) Neut % (Auto) Lymph % (Auto) [place] % (Auto) Eos % (Auto) Baso % (Auto) Lymph # (Auto) [place] # (Auto) Eos # (Auto) Baso # (Auto) Abs Immat Gran (auto) Absolute Neuts (auto) Absolute Nucleated RBC Nucleated RBC % (auto) Anion Gap Estim Creat Clear Calc Estimated GFR POC Glucose 140 H 219 H Fasting Glucose Calcium Assessment and Plan (1) Diabetes: Status: Acute (2) Hypotension: Status: Acute (3) Hypoxia: Status: Acute Plan 71-year-old female with past medical history of diabetes, hypertension who presents to the hospital for total right shoulder arthroplasty ?we are asked to see this patient for medical management/management of diabetes #?hypotension noted to have low blood pressure this morning, patient asymptomatic, noted to have elevated blood pressure in last several days, on midodrine at home, not on antihypertensive low BP question related to narcotic medications also on Seroquel that can contribute to hypotension follow clinical course no evidence of sepsis, continue midodrine DC IV fluid if BP improved # acute hypoxia with underlying history of COPD/ likely related to narcotics/ sedatives chest x-ray obtained that showed atelectasis otherwise unremarkable study recommend incentive spirometry out of bed to chair, continue home inhalers no evidence of COPD exacerbation, not on home O2 gradually wean oxygen # diabetes mellitus -? patient uses metformin at home, blood sugars 200 this a.m. high blood sugars could be related to Ringer lactate -? hold oral anti hyperglycemic, continue low-dose sliding scale insulin- POC q.i.d. a.c. HS and diabetic diet -? metformin can be resumed on discharge #? history of peripheral vascular disease continue Plavix #? status post total shoulder arthroplasty good pain control will DC OxyContin # mood disorder/ chronic pain continue buspar, Cymbalta, gabapentin, and Seroquel # prophylaxis on Lovenox disposition plan as per Orthopedic surgery Quality Stroke Does the patient have a stroke diagnosis?: No VTE Prior VTE?: No VTE Risk Level:: Medical - moderate - high VTE Device Contraindication: N/A - Device Ordered VTE Drug Contraindication: N/A - Med Ordered
--- NOTE | 2022-01-25 12:24 | MHC.CLN ---
NUTRITION INCREASED DIET CALORIES TO DIABETIC 1800 [facility].
[2022-01-25] MEDS: 0.9 % Sodium Chloride Flush 3 ML SYRINGE IVFLUSH ×2 (14:40→23:47)
[2022-01-25 15:29] LABS: Glucose, Whole Blood 177 mg/dL (60-115)
[2022-01-25 19:37] LABS: Glucose, Whole Blood 174 mg/dL (60-115)
[2022-01-25] MEDS: QUEtiapine Fumarate 100 MG TABLET PO (21:20)
[2022-01-26 04:00] VITALS: BP 130/60; PULSE 73; RESP 17; TEMP 36.6; O2SAT 92
[2022-01-26 05:58] LABS: MANUAL DIFF FLAG NO
[2022-01-26 06:07] LABS: Basophils Percent Auto 0.5 % (0-2); Eosinophils Absolute Auto 0.2 X10*3/uL (0.0-0.4); Eosinophils Percent Auto 2.9 % (0-4); Hematocrit 33.1 % (37.0-47.0); Hemoglobin 10.9 g/dl (12.0-16.0); Imm Gran Abs Auto 0.05 X10*3/uL (0.00-0.03); Imm Gran Pct Auto 0.9 % (0.0-0.4); Lymphocytes Absolute Auto 1.3 X10*3/uL (1.2-4.9); Mean Corpuscular HGB Conc 32.9 g/dl (31.0-35.0); Mean Corpuscular Volume 91.2 fL (80.0-98.0); Mean Platelet Volume 10.6 fL (9.4-12.3); Monocytes Absolute Auto 0.7 X10*3/uL (0.1-1.2); Monocytes Percent Auto 12.6 % (2-11); Neutrophils Absolute Auto 3.2 x10*3/uL (2.0-8.3); Neutrophils Percent Auto 59.1 % (45-73); Platelet Count 187 X10*3/uL (160-400); Red Blood Count 3.63 X10*6/uL (4.20-5.50); Red Cell Distribution Width 13.3 % (11.0-16.0); White Blood Count 5.5 X10*3/uL (4.8-10.8)
[2022-01-26 06:46] LABS: Anion Gap 11 (12-20); Blood Urea Nitrogen 11 mg/dL (9-16); Calcium 8.4 mg/dL (8.4-10.2); Carbon Dioxide 30 mmol/L (22-29); Chloride 104 mmol/L (96-108); Creatinine Clr Calc Pharmacy 76.1; Estimated Glomerular Filt Rate > 60; Glucose Fasting 123 mg/dL (60-99); Potassium 4.1 mmol/L (3.3-5.1); Sodium 141 mmol/L (135-145)
[2022-01-26 07:14] VITALS: BP 147/66; PULSE 79; RESP 18; TEMP 36.4; O2SAT 92
[2022-01-26 07:32] LABS: Glucose, Whole Blood 136 mg/dL (60-115)
[2022-01-26] MEDS: Celecoxib 200 MG CAPSULE PO (08:30)
[2022-01-26] MEDS: Folic Acid 1 MG TABLET PO (08:31)
[2022-01-26] MEDS: Loratadine 10 MG TABLET PO (08:31)
[2022-01-26] MEDS: Fenofibrate 160 MG TABLET PO (08:31)
[2022-01-26] MEDS: Gabapentin 400 MG CAPSULE PO (08:31)
[2022-01-26] MEDS: Midodrine HCl 2.5 MG TABLET PO (08:31)
[2022-01-26] MEDS: busPIRone HCl 10 MG TABLET PO (08:31)
[2022-01-26] MEDS: Docusate Sodium 100 MG CAPSULE PO (08:32)
[2022-01-26] MEDS: DULoxetine HCl 60 MG CAPSULE.DR PO (08:32)
[2022-01-26] MEDS: 0.9 % Sodium Chloride Flush 3 ML SYRINGE IVFLUSH (08:32)
[2022-01-26] MEDS: Clopidogrel Bisulfate 75 MG TABLET PO (08:32)
[2022-01-26] MEDS: Montelukast Sodium 10 MG TABLET PO (08:32)
[2022-01-26] MEDS: oxyCODONE HCl Immed Release 5 MG TABLET PO (08:34)
[2022-01-26 09:22] VITALS: O2SAT 90
--- NOTE | 2022-01-26 09:24 | P.DS_ITS ---
DS: Providers Provider Date of Service: 01/26/22 Date of admission: 01/24/22 07:12 Primary care physician: Teresita Munroe DO Consults: 01/24/22 18:30 Consult to Hospitalist Routine Consulting Provider: Hospitalist Reason For Exam: diabetes DS: Diagnosis Discharge Diagnosis (1) Status post total shoulder arthroplasty: Status: Acute DS: Summary Hospital Course Hospital Course: The patient underwent a successful Right total shoulder arthroplasty, was transferred to PACU and then to the floor to recover. During their stay, their vitals were stable, afebrile at 97.5. Labs were unremarkable, H/H 10.9 / 33.1. POD 1 she was started on Aspirin 325mg tabs po bid for DVT ppx, they also received OT services twice a day. Prior to discharge, their dressing was change, incision clean dry and intact, new Aquacel dressing applied and the plan was to be discharged Time Spent with Patient Time attestation: Total time spent providing and/or coordinating discharge services: Discharge coordination time: Less than 30 minutes Quality: Safe Use of Opioids Does Pt have an Active Cancer Diagnosis on the Problem List?: No Quality: Stroke Does the patient have a stroke diagnosis?: No Physical Exam Vital Signs: Vital Signs: Last Vital Signs Temp 97.5 F 01/26/22 07:14 Pulse 79 01/26/22 07:14 Resp 18 01/26/22 07:14 BP 147/66 H 01/26/22 07:14 Pulse Ox 90 L 01/26/22 09:22 O2 Del Method 01/26/22 09:22 O2 Flow Rate 2 01/26/22 07:14 BMI result Body Mass Index 27.6 Const: General: cooperative, healthy appearing and no acute distress Resp: Effort & Inspection: normal respiratory effort and able to speak in complete sentences Cardio: Rate: regular rate Peripheral pulses: Peripheral pulses 2+ throughout GI: Palpation (GI): Soft to palpation Skin: General skin exam: no rashes or lesions noted Extrem: Other: incision clean dry and intact. Lydia intact. No erythema or effusion. Neurovascularly intact. DS: Data Data Completed and Pending Pending studies at discharge: Pending at discharge 01/24/22 11:35 Surgical [PTH] Routine Labs on day of discharge: Laboratory Results - last 24 hr 01/25/22 01/25/22 01/25/22 10:47 15:16 19:20 WBC RBC Hgb Hct MCV MCH MCHC RDW Plt Count MPV Immature Gran % (Auto) Neut % (Auto) Lymph % (Auto) [place] % (Auto) Eos % (Auto) Baso % (Auto) Lymph # (Auto) [place] # (Auto) Eos # (Auto) Baso # (Auto) Abs Immat Gran (auto) Absolute Neuts (auto) Absolute Nucleated RBC Nucleated RBC % (auto) Sodium Potassium Chloride Carbon Dioxide Anion Gap BUN Creatinine Estim Creat Clear Calc Estimated GFR POC Glucose 219 H 177 H 174 H Fasting Glucose Calcium 01/26/22 01/26/22 01/26/22 05:29 05:29 07:18 WBC 5.5 RBC 3.63 L Hgb 10.9 L Hct 33.1 L MCV 91.2 MCH 30.0 MCHC 32.9 RDW 13.3 Plt Count 187 MPV 10.6 Immature Gran % (Auto) 0.9 H Neut % (Auto) 59.1 Lymph % (Auto) 24.0 [place] % (Auto) 12.6 H Eos % (Auto) 2.9 Baso % (Auto) 0.5 Lymph # (Auto) 1.3 [place] # (Auto) 0.7 Eos # (Auto) 0.2 Baso # (Auto) 0.0 Abs Immat Gran (auto) 0.05 H Absolute Neuts (auto) 3.2 Absolute Nucleated RBC 0.000 Nucleated RBC % (auto) 0.0 Sodium 141 Potassium 4.1 Chloride 104 Carbon Dioxide 30 H Anion Gap 11 L BUN 11 Creatinine 0.63 Estim Creat Clear Calc 76.1 Estimated GFR > 60 POC Glucose 136 H Fasting Glucose 123 H Calcium 8.4 Discharge Plan Discharge Patient Disposition: Home Health Service Discharge Diagnosis: Right shoulder TSA Referrals: Alicia Sams PA-C [Physician Combine Driver] - 2 Weeks (02/09/22 2:45 [facility] Alicia Sams PA-C) Discharge Medications: New docusate sodium 100 mg Capsule 100 mg PO BID 14 Days Qty: 28 0RF celecoxib 200 mg Capsule 200 mg PO BID 14 Days Qty: 28 0RF acetaminophen 325 mg Tablet 650 mg PO Q6H PRN (Reason: Pain, Mild (Pain Scale 1-3)) 30 Days Qty: 240 0RF oxycodone 5 mg Tablet 5 mg PO Q4H PRN (Reason: Pain, Moderate (Pain Scale 4-6) 7 Days Qty: 42 0RF Rx Instructions: Partial Fill upon patient request. Continued clopidogrel 75 mg tablet 75 mg PO DAILY ipratropium-albuterol 0.5 mg-3 mg(2.5 mg base)/3 mL solution for nebulization INHALATION tramadol 50 mg tablet 1 tab PO BID PRN (Reason: Pain) buspirone 10 mg tablet 1 tab PO BID albuterol sulfate [Ventolin HFA] 90 mcg/actuation HFA aerosol inhaler 2 puff inhalation Q4-6H PRN (Reason: Wheezing) calcium carbonate-vitamin D3 600 mg-10 mcg (400 unit) tablet 1 tab PO BID gabapentin 400 mg capsule 1 cap PO DAILY quetiapine 100 mg tablet 1 tab PO BEDTIME ketorolac 0.5 % drops 1 drp ophthalmic-Right TID prednisolone acetate 1 % drops,suspension 1 drp ophthalmic-Right TID midodrine 2.5 mg tablet 1 tab PO BID Repatha SureClick 140 mg/mL pen injector 1 ea subcut Q14D sulfasalazine 500 mg tablet 1,000 mg PO BID cholecalciferol (vitamin D3) 50 mcg (2,000 unit) tablet 50 mcg PO DAILY fenofibrate 160 mg tablet 160 mg PO DAILY duloxetine 60 mg capsule,delayed release(DR/EC) 60 mg PO BID rosuvastatin 40 mg tablet 40 mg PO DAILY metformin 500 mg tablet extended release 24 hr 500 mg PO BID ezetimibe 10 mg tablet 10 mg PO DAILY montelukast 10 mg tablet 10 mg PO DAILY folic acid 1 mg tablet 1 mg PO DAILY fluticasone propion-salmeterol 500-50 mcg/dose blister with device 1 inh inhalation BID fexofenadine 180 mg tablet 180 mg PO DAILY Discontinued acetaminophen 500 mg tablet 500 mg PO Q6H PRN (Reason: pain) Qty: 30 0RF aspirin 81 mg tablet,delayed release (DR/EC) 81 mg PO DAILY Discharge Orders: Discharge Order (Routine); Ordered 01/26/22 Ordered By: Alicia Sams Diet: Regular diet Activity on Discharge: sling Stand Alone Forms: Patient Portal Discharge page Care Plan Goals: Restore function of joint Health Concerns: none Plan of Treatment: Physical Therapy Pain management DVT prophylaxis Assessment: * Wear sling at all times unless for hygiene and exercises * Pendelums three times a day * Physical Therapy/ Occupation therapy * ---No raising Right arm above 30 degrees, No ER/IR beyond Neutral ( protect the subscap ), no Abduction beyond 90 degrees * ---No heavy lifting * ---Elbow and wrist ROM ok * Resume Plavix * Follow up with orthopedics in 2 weeks
[2022-01-26 11:19] VITALS: BP 119/67; PULSE 69; RESP 18; TEMP 36.7; O2SAT 91
[2022-01-26 11:21] LABS: Glucose, Whole Blood 105 mg/dL (60-115)
[2022-01-26] MEDS: Enoxaparin Sodium 40 MG/0.4 ML SYRINGE SUBCUT (12:07)
--- NOTE | 2022-01-26 12:23 | MHC.CM.PN ---
PATIENT HAS BEEN MEDICALLY CLEARED FOR DISCHARGE TODAY; DISCHARGE DISPOSITION IS HOME [employer] WITH ADDED NEW [facility] ([facility]). NO 2ND IMM REQUIRED. FAMILY WILL TRANSPORT HOME.
--- NOTE | 2022-01-26 14:15 | W.MHC.F2F ---
Service Date Service Date: 01/26/22 Encounter Date of encounter: 01/26/22 Reasons for Services Signs and symptoms assessed: Right shoulder pain, weakness, unable to weight bear Reason for physical therapy: home safety and mobility, therapeutic exercises, restore joint function, gait/transfer training, assess need for DME, ADL training and energy conservation Reason for occupational therapy: home safety and mobility, therapeutic exercises, restore joint function, gait/transfer training, assess need for DME, ADL training and energy conservation MD Overseeing Care: Roger Watson Homebound: Leaving the home is medically contraindicated at this time without the asist of a device and/or another person due th the listed conditions above and below. Reason homebound: unsteady gait / fall risk, pain with transfers, poor balance / fall risk and unable to drive Homebound supporting statement: unable to drive, poor balance. Certification: Based on the above findings, I certify that this patient is confined to the home and needs intermittent long term care, physical therapy and/or speech therapy, or continues to need occupational therapy. The patient is under my care, and I have initiated the establishment of the plan of care. The patient will be followed by a physician who will periodically review the plan of care.
== END 2022-01-26 13:52 | disposition home health service (06) | DRG 483 ==
LOC: HO.SSSA 07:16 → HO.S3 17:31
PROVIDERS: Nurse Practitioner; Physician Assistant; Admitting Provider Orthopaedic Surgery; PCP Family Medicine; Visit Provider Orthopaedic Surgery
PROC: 0RRJ0JZ Replacement of Right Shoulder Joint with Synthetic Substitute, Open Approach (ICD-10-PCS; principal; 2022-01-24 09:40)
DX: M87.011 Idiopathic aseptic necrosis of right shoulder (principal); I25.10 Atherosclerotic heart disease of native coronary artery without angina pectoris; J45.909 Unspecified asthma, uncomplicated; M06.9 Rheumatoid arthritis, unspecified; I95.81 Postprocedural hypotension; G89.29 Other chronic pain; E11.51 Type 2 diabetes mellitus with diabetic peripheral angiopathy without gangrene; T40.605A Adverse effect of unspecified narcotics, initial encounter; R09.02 Hypoxemia; I71.4 Abdominal aortic aneurysm, without rupture; Z20.822 Contact with and (suspected) exposure to COVID-19; Z79.02 Long term (current) use of antithrombotics/antiplatelets; Z79.51 Long term (current) use of inhaled steroids; Z79.899 Other long term (current) drug therapy
CPT/HCPCS: 36415; 71045; 73020; 80048; 82947; 83036; 85025; 86850; 86900; 86901; 87635; 87640; 87641; 88305; 97166; C1713; C1776; J0690; J1170; J1650; J2250; J2370; J2405; J2795; J3010

== ENCOUNTER 2022-04-03 14:22 | Outpatient (REF) | payer OTHER, SELFPAY ==
[2022-04-03 14:47] LABS: MANUAL DIFF FLAG NO
[2022-04-03 16:01] LABS: Basophils Absolute Auto 0.1 X10*3/uL (0.0-0.2); Basophils Percent Auto 0.9 % (0-2); Eosinophils Absolute Auto 0.3 X10*3/uL (0.0-0.4); Eosinophils Percent Auto 4.4 % (0-4); Hematocrit 38.1 % (37.0-47.0); Hemoglobin 12.2 g/dl (12.0-16.0); Imm Gran Abs Auto 0.02 X10*3/uL (0.00-0.03); Imm Gran Pct Auto 0.3 % (0.0-0.4); Lymphocytes Absolute Auto 2.2 X10*3/uL (1.2-4.9); Lymphocytes Percent Auto 37.3 % (20-40); Mean Corpuscular Hemoglobin 29.6 pg (27.0-33.0); Mean Corpuscular Volume 92.5 fL (80.0-98.0); Mean Platelet Volume 11.6 fL (9.4-12.3); Monocytes Absolute Auto 0.5 X10*3/uL (0.1-1.2); Monocytes Percent Auto 9.1 % (2-11); Neutrophils Absolute Auto 2.8 x10*3/uL (2.0-8.3); Platelet Count 244 X10*3/uL (160-400); Red Blood Count 4.12 X10*6/uL (4.20-5.50); Red Cell Distribution Width 13.2 % (11.0-16.0); White Blood Count 5.9 X10*3/uL (4.8-10.8)
[2022-04-03 16:16] LABS: Alanine Aminotransferase 23 U/L (0-31); Aspartate Amino Transferase 26 U/L (5-31); C Reactive Protein 0.66 mg/dL (< or = 0.50); Estimated Glomerular Filt Rate > 60
[2022-04-03 16:57] LABS: Erythrocyte Sedimentation Rate 42 MM/HR (0-20)
== END 2022-04-03 14:23 | disposition home or self-care (01) ==
LOC: HO.LAB 14:22
PROVIDERS: PCP Family Medicine; Visit Provider Internal Medicine Rheumatology
DX: M06.09 Rheumatoid arthritis without rheumatoid factor, multiple sites (principal); M87.011 Idiopathic aseptic necrosis of right shoulder; Z79.899 Other long term (current) drug therapy; Z96.611 Presence of right artificial shoulder joint
CPT/HCPCS: 36415; 82565; 84450; 84460; 85025; 85652; 86140; 99212

== ENCOUNTER 2022-04-04 18:23 | Emergency (ER) | payer OTHER, SELFPAY ==
[2022-04-04 18:39] VITALS: BP 161/57; PULSE 76; RESP 18; TEMP 37.2; O2SAT 94; BMI 24.7
[2022-04-04 19:32] VITALS: BP 189/79; PULSE 81; TEMP 37.1; O2SAT 96
--- OUTSIDE RECORDS SUMMARY | 2022-04-04 19:50 | XMS_ITS | Continuity of Care Document ---
:1950 Author Organization [facility] Address [address] [place] [address]- Care Team Providers Name Role Phone Teresita Munroe DO Primary Care Physician Encounter [facility] Date(s): 05/14/21 - 09/11/21 [facility] [address] [place] [id number] Attending Physician: Chiqui Albarran MD Admitting Physician: Chiqui Albarran MD Referring Physician: Teresita Munroe DO Allergies, Adverse Reactions, Alerts No Known Medication Allergies Medications aspirin 81 mg oral tablet 1 tablet = 81 mg, By Mouth, Daily, # 90 tablet, 0 Refills, Maintenance, 03/05/17 14:15:10, Tablet Start Date: 03/05/17 Status: OrderedCalcium 600+D oral tablet 1 tablet, By Mouth, 2 times a day, 0 Refills, Maintenance, 03/05/17 14:16:19 Start Date: 03/05/17 Status: Orderedclopidogrel 75 mg oral tablet 75 mg, 1, tablet, By Mouth, Daily, # 30 tablet, Refills 0, Maintenance, 03/05/17 14:18:50 Start Date: 03/05/17 Status: Orderedfenofibrate 160 mg oral tablet 1 tablet = 160 mg, By Mouth, Daily, # 30 tablet, 0 Refills, Maintenance, 03/05/17 14:16:58, Tablet Start Date: 03/05/17 Status: OrderedFish Oil 1000 mg oral capsule 1 capsule = 1,000 mg, By Mouth, 2 times a day, 0 Refills, Maintenance, 03/05/17 14:19:57, Capsule Start Date: 03/05/17 Status: Orderedfluticasone-salmeterol 230 mcg-21 mcg inhalation aerosol with adapter 2 puffs, Inhalation, 2 times a day, # 180 each, 5 Refills, Maintenance, 04/09/18 14:50:33 EST, Aerosol, 2 puffs Inhalation 2 times a day Start Date: 04/09/18 Status: Orderedfolic acid 1 mg oral tablet 1 mg, 1, tablet, By Mouth, Daily, # 30 tablet, Refills 0, Maintenance, 03/05/17 14:17:46 Start Date: 03/05/17 Status: Orderedhydroxychloroquine 200 mg oral tablet 200 mg, 1, tablet, By Mouth, Daily, Refills 0, Maintenance, 03/05/17 14:20:58 Start Date: 03/05/17 Status: OrderedMedrol 4 mg oral tablet 1 tablet = 4 mg, By Mouth, Daily, # 7 tablet, 0 Refills, Maintenance, 04/09/18 14:50:45 EST, Tablet Start Date: 04/09/18 Stop Date: 04/16/18 Status: Orderedmontelukast 10 mg oral tablet 10 mg, 1, tablet, By Mouth, Daily, Refills 0, Maintenance, 03/05/17 14:21:39 Start Date: 03/05/17 Status: Orderedranitidine 150 mg oral tablet 1 tablet = 150 mg, By Mouth, 2 times a day, # 60 tablet, 0 Refills, Maintenance, 03/05/17 14:22:37, Tablet Start Date: 03/05/17 Status: OrderedVitamin D3 2000 intl units oral tablet 1 tablet = 2,000 International_Units, By Mouth, Daily, 0 Refills, Maintenance, 03/05/17 14:23:59 Start Date: 03/05/17 Status: OrderedVitamin D3 50,000 intl units oral capsule 1 capsule = 1,250 mcg, By Mouth, Every week, # 4 capsule, 3 Refills, Maintenance, 06/17/21 13:32:00 EST, [facility], 159, cm, 06/17/21 13:00:00 EST, Height Start Date: 06/17/21 Stop Date: 10/15/21 Status: OrderedZetia 10 mg oral tablet 1 tablet = 10 mg, By Mouth, Daily, # 30 tablet, 0 Refills, Maintenance, 03/05/17 14:24:51, Tablet Start Date: 03/05/17 Status: Ordered Problem List Condition Effective Dates Status Health Status Informant Restrictive lung disease(Confirmed) Active Social History Social History Type Response Smoking Status Former smoker entered on: 01/29/18 Sex
--- OUTSIDE RECORDS SUMMARY | 2022-04-04 19:50 | XMS_ITS | Continuity of Care Document ---
:1950 Author Organization [facility] Address [address] [place] [address]- Care Team Providers Name Role Phone Teresita Munroe DO Primary Care Physician Encounter [facility] Date(s): 10/19/21 - 11/18/21 [facility] [address] [place] [id number] Attending Physician: Fernando Medrano Admitting Physician: Fernando Medrano Referring Physician: AdmtrFernando Allergies, Adverse Reactions, Alerts No Known Medication [...]
--- OUTSIDE RECORDS SUMMARY | 2022-04-04 19:50 | XMS_ITS | Continuity of Care Document ---
:1950 Author Organization [facility] Address [address] [place] [address]- Care Team Providers Name Role Phone Teresita Munroe DO Primary Care Physician Encounter [facility] [place] Date(s): 06/17/21 - 07/17/21 [facility] [address] [place] [id number] Allergies, Adverse Reactions, Alerts No Known Medication [...]
--- OUTSIDE RECORDS SUMMARY | 2022-04-04 19:50 | XMS_ITS | Continuity of Care Document ---
:1950 Author Organization [facility] Address [address] [place] [address]- Care Team Providers Name Role Phone Teresita Munroe DO Primary Care Physician [place] [facility] [place] 08[place]/21 [facility] [address] [place] [id number] Allergies, Adverse Reactions, Alerts No Known Medication [...]
--- OUTSIDE RECORDS SUMMARY | 2022-04-04 19:50 | XMS_ITS | Continuity of Care Document ---
:1950 Author Organization [facility] Address [address] [place] [address]- Care Team Providers Name Role Phone Teresita Munroe DO Primary Care Physician [place] [facility] [place]12[place] - 06/11/21 [facility] [address] [place] [id number] Allergies, Adverse Reactions, Alerts No Known Medication [...] week, # 4 capsule, 3 Refills, Maintenance, 05/12/21 8:35:00 EST, [id number], 159, cm, 05/11/21 10:54:00 EST, Height Start Date: 05/12/21 Stop Date: 09/09/21 Status: OrderedZetia 10 mg oral tablet 1 tablet = 10 mg, By Mouth, Daily, # 30 tablet, 0 Refills, Maintenance, 03/05/17 14:24:51, Tablet Start Date: 03/05/17 Status: Ordered Problem List Condition Effective Dates Status Health Status Informant Restrictive lung disease(Confirmed) Active Social History Social History Type Response Smoking Status Former smoker entered on: 01/29/18 Sex
--- NOTE | 2022-04-04 20:13 | ED_ITS ---
History of Present Illness General Chief Complaint: Epistaxis Stated Complaint: Nose Bleed Time Seen by Provider: 04/04/22 19:34 Source: patient Mode of arrival: ambulatory Limitations: language barrier (H[place]er-speaking tuck pointer helper utilized) History of Present Illness HPI Narrative: Patient is a 71-year-old female presenting to the emergency department with family member for evaluation of resolved epistaxis. Patient reports just prior to arrival she experienced 15 minutes of epistaxis, unclear which nostril this was coming from. She applied light pressure to the end of the nose and epistaxis resolved. Denies headache, vision changes, dizziness, lightheadedness, sore throat, taste of blood to mouth. Denies alternative sources of bleeding. Denies hematuria, bloody or dark stools. She reports that she is on Plavix. Denies any trauma or injury to the nose that may have precipitated this bleeding Related Data Home Medications Medication Instructions Recorded Confirmed cholecalciferol (vitamin D3) 50 50 mcg PO DAILY 06/01/20 04/03/22 mcg (2,000 unit) tablet duloxetine 60 mg capsule,delayed 60 mg PO BID 06/01/20 04/03/22 release ezetimibe 10 mg tablet 10 mg PO DAILY 06/01/20 04/03/22 fenofibrate 160 mg tablet 160 mg PO DAILY 06/01/20 04/03/22 fexofenadine 180 mg tablet 180 mg PO DAILY 06/01/20 04/03/22 fluticasone 500 mcg-salmeterol 50 1 inh inhalation BID 06/01/20 04/03/22 mcg/dose blistr powdr for inhalation folic acid 1 mg tablet 1 mg PO DAILY 06/01/20 04/03/22 metformin 500 mg tablet,extended 500 mg PO BID 06/01/20 04/03/22 release 24 hr montelukast 10 mg tablet 10 mg PO DAILY 06/01/20 01/10/22 rosuvastatin 40 mg tablet 40 mg PO DAILY 06/01/20 04/03/22 sulfasalazine 500 mg tablet 1,000 mg PO BID 06/01/20 04/03/22 clopidogrel 75 mg tablet 75 mg PO DAILY 11/05/20 04/03/22 albuterol sulfate 90 mcg/actuation 2 puff inhalation Q4-6H PRN 01/10/22 01/10/22 aerosol inhaler (Ventolin HFA) Wheezing buspirone 10 mg tablet 1 tab PO BID 01/10/22 04/03/22 calcium carbonate 600 mg-vitamin 1 tab PO BID 01/10/22 04/03/22 D3 10 mcg (400 unit) tablet ipratropium 0.5 mg-albuterol 3 mg ml inhalation 01/10/22 04/03/22 (2.5 mg base)/3 mL nebulization soln tramadol 50 mg tablet 1 tab PO BID PRN Pain 01/10/22 04/03/22 evolocumab 140 mg/mL subcutaneous 1 ea subcut Q14D 01/24/22 04/03/22 pen injector (Hortensia Vera) gabapentin 400 mg capsule 1 cap PO DAILY 01/24/22 04/03/22 ketorolac 0.5 % eye drops 1 drp ophthalmic-Right TID 01/24/22 04/03/22 midodrine 2.5 mg tablet 1 tab PO BID 01/24/22 04/03/22 prednisolone acetate 1 % eye 1 drp ophthalmic-Right TID 01/24/22 04/03/22 drops,suspension quetiapine 100 mg tablet 1 tab PO BEDTIME 01/24/22 04/03/22 Previous Rx's Medication Instructions Recorded acetaminophen 325 mg tablet 650 mg PO Q6H PRN Pain, Mild (Pain 01/26/22 Scale 1-3) 30 days #240 tabs docusate sodium 100 mg capsule 100 mg PO BID 14 days #28 caps 01/26/22 Allergies Allergy/AdvReac Type Severity Reaction Status Date / Time lobster Allergy Nausea and Uncoded 04/03/22 13:45 Vomiting Review of Systems Review of Systems: Constitutional: No weight loss, fever, chills, weakness or fatigue. ENT: Positive epistaxis Skin: No rash or itching. Cardiovascular: No chest pain or palpitation Respiratory: No shortness of breath or cough Gastrointestinal: No nausea, vomiting or diarrhea. No abdominal pain or blood in stool. Genitourinary: No burning micturition. No hematuria Musculoskeletal: No muscle pain, back pain, joint pain or stiffness. Psychiatric: No depression or anxiety. Yes all other systems are reviewed and are negative PMFSH Past Medical History Attestation statement: The following information was validated with the patient. Source: old records reviewed Medical History AAA (abdominal aortic aneurysm) Asthma CAD (coronary artery disease) Carotid arterial disease Chronic venous insufficiency COPD (chronic obstructive pulmonary disease) Diabetes Elevated cholesterol HTN (hypertension) PVD (peripheral vascular disease) Rheumatoid arthritis Subclavian artery stenosis Surgical History History of arthroplasty of right shoulder History of colonoscopy Hx of endoscopy Hx of removal of cyst Family History Family History Father No problems noted. Mother Family history of high blood pressure Hx of type 1 diabetes mellitus Social History Social History Are you a primary lawn care specialist to a significant other at home: No Do you presently have visiting nurse or other home services: Yes ([employer] - daily) Alcohol intake: never Patient Tobacco Use Status: Former Tobacco user Quit Date: 10 yrs ago Tobacco use type: Cigarette Advance Directives: No Advance Directives Information Provided: No service: No Current occupational status: disabled Physical Exam Vital Signs: Vital Signs: Last Vital Signs Temp 98.8 F 04/04/22 19:32 Pulse 81 04/04/22 19:32 Resp 18 04/04/22 18:39 BP 176/72 H 04/04/22 20:33 Pulse Ox 96 04/04/22 19:32 O2 Del Method 04/04/22 19:32 BMI result Body Mass Index 24.7 Appearance: Alert.?Oriented to person, place and time. No acute distress.?Normal affect. Eyes: Pupils equal, round and reactive to light.? ENT: Pharynx janice, no blood present l.??Right nares with scabbed lesion, no active bleeding. Neck: Normal inspection.? Neck supple.?? CVS: Heart sounds normal. Normal heart rate and rhythm.? Pulses normal.?? Respiratory: No respiratory distress.? Lung sounds clear to auscultation bilaterally?? Abdomen: Soft and non-tender. Normoactive bowel sounds. Skin: Skin warm and dry.? Normal skin color.? Extremities: No lower extremity edema.? Neuro: Moves all extremities spontaneously. Sensation intact bilaterally. No focal neuro deficits. Ambulates with normal steady gait. Course Course Course Narrative: Patient is a 71-year-old female with a past medical history of AAA, asthma, CAD, chronic venous insufficiency, COPD, type 2 diabetes, hypertension, hyperlipidemia, PVD, rheumatoid arthritis who presents to the emergency department for evaluation of resolved epistaxis. Upon examination there is an area of scabbed lesion to the right nares anteriorly. Patient does endorse that is dry in her home given that the heat has been on, does not have a humidifier. She is taking Plavix, denies any additional anticoagulants. No additional symptoms associated with this. No focal neurological findings. No signs of severe anemia. Patient had outpatient labs obtained yesterday, no anemia, platelet count was normal. At this time, no intervention required. Discussed worrisome signs and symptoms to return back to the emergency department for. Reassurance was provided. Advised outpatient follow-up with primary care provider as needed. Discharged home in stable condition. MDM - Epistaxis Medical Records Attestation: I reviewed the patient's medical records. Discharge Plan Discharge Clinical Impression: Epistaxis Patient Disposition: Home, Self-Care Instructions: Nosebleed (ED) Additional Instructions: Return to emergency department with any new or worsening symptoms or concerns. As discussed, should nose bleeding return apply pressure as instructed Follow-up with your primary care provider as needed Use humidifier in the home to help keep the air moist, avoid inserting anything into the nostril or picking of the nostril. If you have any additional sources of bleeding, bleeding from the mouth, gums, urine, stool, unexplained bruising please return back to the emergency depar tment. Prescriptions: No Action clopidogrel 75 mg tablet 75 mg PO DAILY ipratropium-albuterol 0.5 mg-3 mg(2.5 mg base)/3 mL solution for nebulization INHALATION tramadol 50 mg tablet 1 tab PO BID PRN (Reason: Pain) buspirone 10 mg tablet 1 tab PO BID albuterol sulfate [Ventolin HFA] 90 mcg/actuation HFA aerosol inhaler 2 puff inhalation Q4-6H PRN (Reason: Wheezing) calcium carbonate-vitamin D3 600 mg-10 mcg (400 unit) tablet 1 tab PO BID gabapentin 400 mg capsule 1 cap PO DAILY quetiapine 100 mg tablet 1 tab PO BEDTIME ketorolac 0.5 % drops 1 drp ophthalmic-Right TID prednisolone acetate 1 % drops,suspension 1 drp ophthalmic-Right TID midodrine 2.5 mg tablet 1 tab PO BID Repatha SureClick 140 mg/mL pen injector 1 ea subcut Q14D docusate sodium 100 mg Capsule 100 mg PO BID 14 Days Qty: 28 0RF acetaminophen 325 mg Tablet 650 mg PO Q6H PRN (Reason: Pain, Mild (Pain Scale 1-3)) 30 Days Qty: 240 0RF sulfasalazine 500 mg tablet 1,000 mg PO BID cholecalciferol (vitamin D3) 50 mcg (2,000 unit) tablet 50 mcg PO DAILY fenofibrate 160 mg tablet 160 mg PO DAILY duloxetine 60 mg capsule,delayed release(DR/EC) 60 mg PO BID rosuvastatin 40 mg tablet 40 mg PO DAILY metformin 500 mg tablet extended release 24 hr 500 mg PO BID ezetimibe 10 mg tablet 10 mg PO DAILY montelukast 10 mg tablet 10 mg PO DAILY folic acid 1 mg tablet 1 mg PO DAILY fluticasone propion-salmeterol 500-50 mcg/dose blister with device 1 inh inhalation BID fexofenadine 180 mg tablet 180 mg PO DAILY Referrals: Teresita Munroe DO [Primary Care Provider] - Interventions: ED Discharge Assessment Last Done: 04/04/22 20:41 Discharge Date/Time: 04/04/22 20:42 Print Language: [place]
[2022-04-04 20:33] VITALS: BP 176/72
== END 2022-04-04 20:42 | disposition home or self-care (01) ==
PROVIDERS: Emergency Provider Student in an Organized Health Care Education/Training Program; PCP Family Medicine
DX: R04.0 Epistaxis (principal); E11.9 Type 2 diabetes mellitus without complications; I10 Essential (primary) hypertension; E78.5 Hyperlipidemia, unspecified; Z79.02 Long term (current) use of antithrombotics/antiplatelets; Z79.899 Other long term (current) drug therapy; Z79.84 Long term (current) use of oral hypoglycemic drugs
CPT/HCPCS: 99283

== ENCOUNTER 2022-04-09 14:46 | Emergency (ER) | payer OTHER, SELFPAY ==
[2022-04-09 15:04] VITALS: BP 168/57; PULSE 78; RESP 18; TEMP 36.7; O2SAT 97; BMI 25.1
--- NOTE | 2022-04-09 19:33 | ED.EPISTAXIS ---
History of Present Illness General Chief Complaint: Epistaxis Stated Complaint: Nose bleed Time Seen by Provider: 04/09/22 19:32 Source: patient and family Mode of arrival: ambulatory Limitations: language barrier (Citizen [place]-speaking) History of Present Illness HPI Narrative: 71-year-old female with a past medical history of AAA, asthma, CAD, carotid arterial disease, chronic venous insufficiency, COPD, diabetes, hyperlipidemia, hypertension, PVD, rheumatoid arthritis and subclavian artery stenosis currently on baby aspirin and Plavix daily presenting to the ED with complaints of resolved epistaxis to the right Nare. She reports that she has been having intermittent episodes and this week she has had approximately 3 episodes which last approximately 15 minutes or less. She believes it is bleeding from her right Nare. She denies any fevers, dizziness, headaches, neck pain/stiffness, recent falls or trauma, hypercoagulation disorder, any other anticoagulation usage other than aspirin or Plavix, or any other symptoms complaints or concerns at this time. Location: Yes right nares Onset/current episode: Yes day(s) (Intermittent over the past few days) Duration: Yes intermittent Pertinent past history: Yes hypertension Context: Yes aspirin use (And Plavix usage) Treatment prior to arrival: Yes nose pinching, Yes head leaning forward and Yes stuff nose with tissue Related Data Home Medications Medication Instructions Recorded Confirmed cholecalciferol (vitamin D3) 50 50 mcg PO DAILY 06/01/20 04/03/22 mcg (2,000 unit) tablet duloxetine 60 mg capsule,delayed 60 mg PO BID 06/01/20 04/03/22 release ezetimibe 10 mg tablet 10 mg PO DAILY 06/01/20 04/03/22 fenofibrate 160 mg tablet 160 mg PO DAILY 06/01/20 04/03/22 fexofenadine 180 mg tablet 180 mg PO DAILY 06/01/20 04/03/22 fluticasone 500 mcg-salmeterol 50 1 inh inhalation BID 06/01/20 04/03/22 mcg/dose blistr powdr for inhalation folic acid 1 mg tablet 1 mg PO DAILY 06/01/20 04/03/22 metformin 500 mg tablet,extended 500 mg PO BID 06/01/20 04/03/22 release 24 hr montelukast 10 mg tablet 10 mg PO DAILY 06/01/20 01/10/22 rosuvastatin 40 mg tablet 40 mg PO DAILY 06/01/20 04/03/22 clopidogrel 75 mg tablet 75 mg PO DAILY 11/05/20 04/03/22 albuterol sulfate 90 mcg/actuation 2 puff inhalation Q4-6H PRN 01/10/22 01/10/22 aerosol inhaler (Ventolin HFA) Wheezing buspirone 10 mg tablet 1 tab PO BID 01/10/22 04/03/22 calcium carbonate 600 mg-vitamin 1 tab PO BID 01/10/22 04/03/22 D3 10 mcg (400 unit) tablet ipratropium 0.5 mg-albuterol 3 mg ml inhalation 01/10/22 04/03/22 (2.5 mg base)/3 mL nebulization soln tramadol 50 mg tablet 1 tab PO BID PRN Pain 01/10/22 04/03/22 evolocumab 140 mg/mL subcutaneous 1 ea subcut Q14D 01/24/22 04/03/22 pen injector (Hortensia Vera) gabapentin 400 mg capsule 1 cap PO DAILY 01/24/22 04/03/22 ketorolac 0.5 % eye drops 1 drp ophthalmic-Right TID 01/24/22 04/03/22 midodrine 2.5 mg tablet 1 tab PO BID 01/24/22 04/03/22 prednisolone acetate 1 % eye 1 drp ophthalmic-Right TID 01/24/22 04/03/22 drops,suspension quetiapine 100 mg tablet 1 tab PO BEDTIME 01/24/22 04/03/22 Previous Rx's Medication Instructions Recorded acetaminophen 325 mg tablet 650 mg PO Q6H PRN Pain, Mild (Pain 01/26/22 Scale 1-3) 30 days #240 tabs docusate sodium 100 mg capsule 100 mg PO BID 14 days #28 caps 01/26/22 sulfasalazine 500 mg tablet 1,000 mg PO BID #120 tabs 04/06/22 Allergies Allergy/AdvReac Type Severity Reaction Status Date / Time lobster Allergy Nausea and Uncoded 04/03/22 13:45 Vomiting Review of Systems Review of Systems: Constitutional : No Fever, No Chills ENT/Mouth : No Ear Pain, No Nasal Congestion, positive resolved nose bleed Eyes: No Eye Pain, No Swelling, No Redness Cardiovascular : No Chest Pain, No SOB Respiratory : No Cough, No Sputum Gastrointestinal : No Nausea, No Vomiting, No Diarrhea Genitourinary : No Dysuria, No Hematuria Musculoskeletal : No joint pain, No Myalgias Skin : No Skin Lesions, No rash Neuro : No Weakness, No Numbness, No headache Psych : No Anxiety/Panic, No Depression Heme/Lymph: No Bleeding,No Lymphadenopathy Endocrine : No Polyuria, No Polydipsia Yes all other systems are reviewed and are negative [facility] Past Medical History Attestation statement: The following information was validated with the patient. Source: old records reviewed, obtained from family and nursing notes reviewed Medical History AAA (abdominal aortic aneurysm) Asthma CAD (coronary artery disease) Carotid arterial disease Chronic venous insufficiency COPD (chronic obstructive pulmonary disease) Diabetes Elevated cholesterol HTN (hypertension) PVD (peripheral vascular disease) Rheumatoid arthritis Subclavian artery stenosis Surgical History History of arthroplasty of right shoulder History of colonoscopy Hx of endoscopy Hx of removal of cyst Family History Family History Father No problems noted. Mother Family history of high blood pressure Hx of type 1 diabetes mellitus Social History Social History Are you a primary weekend caregiver to a significant other at home: No Do you presently have visiting nurse or other home services: Yes ([employer] - daily) Alcohol intake: never Patient Tobacco Use Status: Former Tobacco user Quit Date: 10 yrs ago Tobacco use type: Cigarette Advance Directives: No Advance Directives Information Provided: No service: No Current occupational status: disabled Physical Exam Vital Signs: Vital Signs: Last Vital Signs Temp 98.0 F 04/09/22 15:04 Pulse 78 04/09/22 15:04 Resp 18 04/09/22 15:04 BP 168/57 H 04/09/22 15:04 Pulse Ox 97 04/09/22 15:04 O2 Del Method 04/09/22 15:04 BMI result Body Mass Index 25.1 vital signs have been reviewed as normal and appeared to be correct. Blood pressure normal Heart rate normal. Respiration rate normal. Temperature normal. Oxygen saturation normal. Appearance: Alert. Oriented X3. No acute distress. Head: Normal external exam. Normocephalic. Atraumatic. Eyes: PERRLA. EOMI. Conjunctiva and sclera normal. Eyelids normal. ENT: To the right nare she has superficial abrasions and it appears dry. No active epistaxis noted. No blood noted to the posterior pharynx. Not consistent with septal hematoma. Pharynx normal. Uvula midline. Moist mucous membranes. Neck: Normal inspection. Neck supple. FROM. CVS: Normal heart rate and rhythm. Respiratory: No respiratory distress. Painless inspiration. Skin: Skin warm and dry. Normal skin color. Normal skin turgor. No rashes/lesions/lacerations noted. Extremities: No lower extremity edema. Extremities exhibit normal range of motion. Extremities nontender. Neuro: Oriented X 3. No motor deficit. No sensory deficit. Reflexes normal. Normal steady gait. No focal neuro deficits noted. Vascular: + radial pulses/+ 2 distal pedal pulses/+2 dorsalis pedis b/l. Normal cap refill. No cyanosis noted to upper extremity nails and lower extremity toes nails. Course Course Course Narrative: Patient resolved epistaxis. She had recent blood work and did not have any abnormalities in her blood work. There is no active bleeding at this time. Therefore will DC home with Rei and instructions to follow-up with her primary care provider regarding her aspirin and Plavix usage. To return if any new or worsening symptoms. Patient with daughter at bedside understand agree this plan. [facility] - Epistaxis Medical Records Attestation: I reviewed the patient's medical records. Discharge Plan Discharge Clinical Impression: Epistaxis Patient Disposition: Home, Self-Care Instructions: Nosebleed (ED) Prescriptions: No Action sulfasalazine 500 mg tablet 1,000 mg PO BID Qty: 120 5RF clopidogrel 75 mg tablet 75 mg PO DAILY ipratropium-albuterol 0.5 mg-3 mg(2.5 mg base)/3 mL solution for nebulization INHALATION tramadol 50 mg tablet 1 tab PO BID PRN (Reason: Pain) buspirone 10 mg tablet 1 tab PO BID albuterol sulfate [Ventolin HFA] 90 mcg/actuation HFA aerosol inhaler 2 puff inhalation Q4-6H PRN (Reason: Wheezing) calcium carbonate-vitamin D3 600 mg-10 mcg (400 unit) tablet 1 tab PO BID gabapentin 400 mg capsule 1 cap PO DAILY quetiapine 100 mg tablet 1 tab PO BEDTIME ketorolac 0.5 % drops 1 drp ophthalmic-Right TID prednisolone acetate 1 % drops,suspension 1 drp ophthalmic-Right TID midodrine 2.5 mg tablet 1 tab PO BID Repatha SureClick 140 mg/mL pen injector 1 ea subcut Q14D docusate sodium 100 mg Capsule 100 mg PO BID 14 Days Qty: 28 0RF acetaminophen 325 mg Tablet 650 mg PO Q6H PRN (Reason: Pain, Mild (Pain Scale 1-3)) 30 Days Qty: 240 0RF cholecalciferol (vitamin D3) 50 mcg (2,000 unit) tablet 50 mcg PO DAILY fenofibrate 160 mg tablet 160 mg PO DAILY duloxetine 60 mg capsule,delayed release(DR/EC) 60 mg PO BID rosuvastatin 40 mg tablet 40 mg PO DAILY metformin 500 mg tablet extended release 24 hr 500 mg PO BID ezetimibe 10 mg tablet 10 mg PO DAILY montelukast 10 mg tablet 10 mg PO DAILY folic acid 1 mg tablet 1 mg PO DAILY fluticasone propion-salmeterol 500-50 mcg/dose blister with device 1 inh inhalation BID fexofenadine 180 mg tablet 180 mg PO DAILY Referrals: Teresita Munroe DO [Primary Care Provider] - 2 days Print Language: Citizen Of [place]
[2022-04-09 19:42] VITALS: BP 142/62; PULSE 62; RESP 18; TEMP 37.1; O2SAT 95
[2022-04-09] MEDS: Oxymetazoline HCl 0.05 % Nasal 15 ML SPRAY 2 SPRAY NOSTRIL-B (19:43)
== END 2022-04-09 19:45 | disposition home or self-care (01) ==
PROVIDERS: Emergency Provider Student in an Organized Health Care Education/Training Program; PCP Family Medicine
DX: R04.0 Epistaxis (principal); I10 Essential (primary) hypertension; Z87.891 Personal history of nicotine dependence
CPT/HCPCS: 99282

== ENCOUNTER 2022-04-20 | Outpatient (REF) | payer OTHER, SELFPAY ==
--- NOTE | ~2022-04-20 | XR_ITS ---
EXAMINATION: XR SHOULDER, RIGHT CLINICAL INFORMATION: Pain in shoulder. COMPARISON: CT right shoulder 01/23/2022 which revealed avascular sclerosis of superior articulating humeral head TECHNIQUE: Three views of the right shoulder. FINDINGS: There is a right humeral prosthesis and a partial plate along the right glenoid. The alignment is maintained normal. No loosening is seen. The soft tissues are normal. There is mild loss of the joint space at the right AC joint. No fracture or loose body is seen. XR/XR shoulder RT min 2V IMPRESSION: Right shoulder arthroplasty with the prosthetic components in satisfactory alignment. Mild DJD of the AC joint. No acute fracture is seen.
== END 2022-04-20 00:01 | disposition home or self-care (01) ==
LOC: HO.HOSX
PROVIDERS: Visit Provider Orthopaedic Surgery
DX: M25.511 Pain in right shoulder (principal)
CPT/HCPCS: 73030

== ENCOUNTER 2022-05-16 11:00 | Outpatient (RCR) | payer OTHER, SELFPAY ==
--- NOTE | 2022-06-07 15:02 | MHC.PT.DC ---
[facility] [place] Office [place] Office [place] Office [address] Johnson Aguayo [address] [phone] F: [phone] F: [phone] F: [phone] F: [phone] Physical Therapy Discharge Report Diagnosis: S/P TSA Date of Surgery: 01/24/22 Date of Evaluation: 02/28/22 Date of Discharge: 06/07/22 Treatments to Date: 17 Cancellations to Date: 1 No Shows to Date: Discharge Status: Discharge Summary: [place]en had progressed well in PT and has become more functional at home. She is lacking end range motion and some UE strength but she feels she is able to complete all her necessary tasks at home with PRACTICING UROLOGIST. She was unable to attend last few visits due to illness and chose not to schedule for more visits. Electronically signed by: Clair Terry PT DPT Please sign and return to therapist. Thank you for your referral.
== END 2022-06-07 15:02 | disposition home or self-care (01) ==
LOC: HO.PT 11:00
PROVIDERS: Visit Provider Physician Assistant
DX: Z96.611 Presence of right artificial shoulder joint (principal)
CPT/HCPCS: 97110; 97140; 97162

== ENCOUNTER 2022-06-26 12:22 | Outpatient (REF) | payer OTHER, SELFPAY ==
--- NOTE | ~2022-06-26 | MM_ITS ---
EXAMINATION: MM SCREENING DIGITAL BREAST TOMOSYNTHESIS, BILATERAL CLINICAL INFORMATION: Screening. Asymptomatic. The lifetime risk of breast cancer based on the Tyrer-Cuzick Model is 2.2%. COMPARISON: Mammography: January 07, 2019 and studies dating back to March 26, 2013 TECHNIQUE: Digital breast tomosynthesis is performed in both the craniocaudal and mediolateral oblique views along with computer-aided detection (CAD). Synthesized 2D images are generated from the tomosynthesis. FINDINGS: The breasts are heterogeneously dense, which may obscure small masses (ACR BI-RADS breast composition Category c). There are no significant masses, abnormal calcifications, or other abnormalities. MM/MM tomosynthesis screening BI IMPRESSION: No significant changes from prior exam. ASSESSMENT: BI-RADS 1: Negative RECOMMENDATION: Routine annual mammography screening. This patient's information was entered into a reminder system with a target due date for their next mammogram.
== END 2022-06-26 12:23 | disposition home or self-care (01) ==
LOC: HO.MAMMO 12:22
PROVIDERS: PCP Family Medicine; Visit Provider Family Medicine
DX: Z12.31 Encounter for screening mammogram for malignant neoplasm of breast (principal)
CPT/HCPCS: 77063; 77067

== ENCOUNTER → 2022-07-20 11:24 | Outpatient (BNVA) | payer OTHER, SELFPAY | PROVIDERS: Visit Provider Orthopaedic Surgery | DX: Z96.612 Presence of left artificial shoulder joint (principal) | CPT/HCPCS: 99212 ==

== ENCOUNTER → 2022-08-03 09:44 | Outpatient (BNVA) | payer OTHER, SELFPAY | PROVIDERS: PCP Family Medicine; Visit Provider Internal Medicine Rheumatology | DX: M79.7 Fibromyalgia (principal); M06.09 Rheumatoid arthritis without rheumatoid factor, multiple sites; Z79.899 Other long term (current) drug therapy; Z96.611 Presence of right artificial shoulder joint | CPT/HCPCS: 99212 ==

== ENCOUNTER 2022-08-03 11:00 | Outpatient (REF) | payer OTHER, SELFPAY ==
[2022-08-03 14:04] LABS: MANUAL DIFF FLAG NO
[2022-08-03 14:26] LABS: Basophils Absolute Auto 0.1 X10*3/uL (0.0-0.2); Basophils Percent Auto 0.9 % (0-2); Eosinophils Absolute Auto 0.3 X10*3/uL (0.0-0.4); Eosinophils Percent Auto 5.9 % (0-4); Hematocrit 37.9 % (37.0-47.0); Hemoglobin 11.9 g/dl (12.0-16.0); Imm Gran Abs Auto 0.02 X10*3/uL (0.00-0.03); Imm Gran Pct Auto 0.4 % (0.0-0.4); Lymphocytes Absolute Auto 1.9 X10*3/uL (1.2-4.9); Lymphocytes Percent Auto 35.9 % (20-40); Mean Corpuscular HGB Conc 31.4 g/dl (31.0-35.0); Mean Corpuscular Hemoglobin 29.1 pg (27.0-33.0); Mean Corpuscular Volume 92.7 fL (80.0-98.0); Mean Platelet Volume 11.9 fL (9.4-12.3); Monocytes Absolute Auto 0.6 X10*3/uL (0.1-1.2); Monocytes Percent Auto 11.3 % (2-11); Neutrophils Absolute Auto 2.5 x10*3/uL (2.0-8.3); Neutrophils Percent Auto 45.6 % (45-73); Platelet Count 231 X10*3/uL (160-400); Red Blood Count 4.09 X10*6/uL (4.20-5.50); White Blood Count 5.4 X10*3/uL (4.8-10.8)
[2022-08-03 14:34] LABS: Alanine Aminotransferase 16 U/L (0-31); Albumin Level 3.8 g/dL (3.5-5.0); Alkaline Phosphatase 93 U/L (39-117); Anion Gap 10 (12-20); Aspartate Amino Transferase 24 U/L (5-31); Bilirubin Total 0.5 mg/dL (0.0-1.0); Blood Urea Nitrogen 16 mg/dL (9-16); C Reactive Protein 0.32 mg/dL (< or = 0.50); Carbon Dioxide 27 mmol/L (22-29); Chloride 108 mmol/L (96-108); Estimated Glomerular Filt Rate > 60; Glucose Random 78 mg/dL (60-115); Potassium 4.3 mmol/L (3.3-5.1); Sodium 141 mmol/L (135-145); Total Protein 6.9 g/dL (6.5-8.0)
[2022-08-03 15:31] LABS: Erythrocyte Sedimentation Rate 45 MM/HR (0-20)
== END 2022-08-03 11:01 | disposition home or self-care (01) ==
LOC: HO.10HDL 11:00
PROVIDERS: Visit Provider Internal Medicine Rheumatology
DX: M06.9 Rheumatoid arthritis, unspecified (principal); M79.7 Fibromyalgia; Z79.899 Other long term (current) drug therapy; Z96.611 Presence of right artificial shoulder joint
CPT/HCPCS: 36415; 80053; 85025; 85652; 86140

== ENCOUNTER 2022-09-08 15:20 | Outpatient (REF) | payer OTHER, SELFPAY ==
--- NOTE | ~2022-09-08 | XR_ITS ---
EXAMINATION: XR chest 2V CLINICAL INFORMATION: Reason for Exam COVID COMPARISON: Chest radiograph 01/25/2022 TECHNIQUE: 2 views of the chest FINDINGS: Mild diffuse peribronchial vascular opacities may reflect edema or atypical infection. No pneumothorax or pleural effusion. Normal cardiomediastinal silhouette. XR/XR chest 2V Impression: Mild diffuse peribronchial vascular opacities may reflect edema or atypical infection.
== END 2022-09-08 15:21 | disposition home or self-care (01) ==
LOC: HO.XRAY 15:20
PROVIDERS: Absent Provider Family Medicine; PCP Family Medicine; Visit Provider Emergency Medicine
DX: U07.1 COVID-19 (principal); J44.9 Chronic obstructive pulmonary disease, unspecified
CPT/HCPCS: 71046

== ENCOUNTER → 2022-12-07 10:55 | Outpatient (BNVA) | payer OTHER, SELFPAY | PROVIDERS: PCP Family Medicine; Visit Provider Internal Medicine Rheumatology | DX: M79.7 Fibromyalgia (principal); M81.0 Age-related osteoporosis without current pathological fracture; M06.09 Rheumatoid arthritis without rheumatoid factor, multiple sites; Z79.899 Other long term (current) drug therapy | CPT/HCPCS: 99212 ==

== ENCOUNTER 2022-12-07 11:58 | Outpatient (REF) | payer OTHER, SELFPAY ==
[2022-12-07 13:54] LABS: MANUAL DIFF FLAG NO
[2022-12-07 13:59] LABS: Basophils Absolute Auto 0.1 X10*3/uL (0.0-0.2); Basophils Percent Auto 0.8 % (0-2); Eosinophils Absolute Auto 0.3 X10*3/uL (0.0-0.4); Eosinophils Percent Auto 5.1 % (0-4); Hematocrit 39.1 % (37.0-47.0); Hemoglobin 12.5 g/dl (12.0-16.0); Imm Gran Abs Auto 0.01 X10*3/uL (0.00-0.03); Imm Gran Pct Auto 0.2 % (0.0-0.4); Lymphocytes Absolute Auto 2.1 X10*3/uL (1.2-4.9); Lymphocytes Percent Auto 34.7 % (20-40); Mean Corpuscular Hemoglobin 29.3 pg (27.0-33.0); Mean Corpuscular Volume 91.8 fL (80.0-98.0); Mean Platelet Volume 11.4 fL (9.4-12.3); Monocytes Absolute Auto 0.6 X10*3/uL (0.1-1.2); Monocytes Percent Auto 10.6 % (2-11); Neutrophils Absolute Auto 2.9 x10*3/uL (2.0-8.3); Neutrophils Percent Auto 48.6 % (45-73); Platelet Count 239 X10*3/uL (160-400); Red Blood Count 4.26 X10*6/uL (4.20-5.50); Red Cell Distribution Width 13.6 % (11.0-16.0)
[2022-12-07 14:35] LABS: Alanine Aminotransferase 13 U/L (0-31); Albumin Level 3.9 g/dL (3.5-5.0); Alkaline Phosphatase 89 U/L (39-117); Anion Gap 12 (12-20); Aspartate Amino Transferase 21 U/L (5-31); Bilirubin Total 0.5 mg/dL (0.0-1.0); Blood Urea Nitrogen 16 mg/dL (9-16); C Reactive Protein 0.37 mg/dL (< or = 0.50); Calcium 9.5 mg/dL (8.4-10.2); Carbon Dioxide 26 mmol/L (22-29); Chloride 109 mmol/L (96-108); Estimated Glomerular Filt Rate > 60; Glucose Random 90 mg/dL (60-115); Potassium 4.1 mmol/L (3.3-5.1); Sodium 143 mmol/L (135-145); Total Protein 7.5 g/dL (6.5-8.0)
[2022-12-07 17:57] LABS: Erythrocyte Sedimentation Rate 49 MM/HR (0-20)
[2022-12-08 08:30] LABS: HBS Num1 > 1000.00 mIU/mL (0-7.99); HBc Num1 0.09 S/CO (0.00-0.79); HBsAGNum1 0.46 S/CO (0.00-0.99); Hepatitis A Antibody IgM 0.25 Index (0-0.79); Hepatitis B Core Antibody Nonreactive (Nonreactive); Hepatitis B Surface Antigen Negative (Negative); ~HepC Num1 0.13 S/CO (0.00-0.79); ~Hepatitis A Antibody IgM Nonreactive (Nonreactive); ~Hepatitis B Surface Antibody REACTIVE (Nonreactive); ~Hepatitis C Antibody Nonreactive (Nonreactive)
== END 2022-12-07 11:59 | disposition home or self-care (01) ==
LOC: HO.10HDL 11:58
PROVIDERS: Visit Provider Internal Medicine Rheumatology
DX: M06.09 Rheumatoid arthritis without rheumatoid factor, multiple sites (principal); M79.7 Fibromyalgia; M81.0 Age-related osteoporosis without current pathological fracture; Z79.899 Other long term (current) drug therapy
CPT/HCPCS: 36415; 80053; 85025; 85652; 86140; 86704; 86706; 86709; 86803; 87340

== ENCOUNTER 2023-02-22 10:54 | Outpatient (REF) | payer OTHER, SELFPAY ==
--- NOTE | ~2023-02-22 | XR_ITS ---
EXAMINATION: XR ELBOW, RIGHT XR ELBOW, LEFT CLINICAL INFORMATION: Pain and swelling. COMPARISON: Right elbow radiographs dated 11/22/2021. TECHNIQUE: AP, bilateral oblique, and lateral views of the right and left elbow. FINDINGS: RIGHT ELBOW: No acute fracture or dislocation. No significant joint space narrowing or marginal osteophytes. No osseous erosion. No abnormal soft tissue calcification. No significant joint effusion. LEFT ELBOW: No acute fracture or dislocation. No significant joint space narrowing or marginal osteophytes. No osseous erosion. No abnormal soft tissue calcification. No significant joint effusion. XR/XR elbow RT min 3V IMPRESSION: RIGHT ELBOW: Unremarkable examination. LEFT ELBOW: Unremarkable examination.
--- NOTE | ~2023-02-22 | XR_ITS ---
EXAMINATION: XR ELBOW, RIGHT XR ELBOW, LEFT CLINICAL INFORMATION: Pain and swelling. COMPARISON: Right elbow radiographs dated 11/22/2021. TECHNIQUE: AP, bilateral oblique, and lateral views of the right and left elbow. FINDINGS: RIGHT ELBOW: No acute fracture or dislocation. No significant joint space narrowing or marginal osteophytes. No osseous erosion. No abnormal soft tissue calcification. No significant joint effusion. LEFT ELBOW: No acute fracture or dislocation. No significant joint space narrowing or marginal osteophytes. No osseous erosion. No abnormal soft tissue calcification. No significant joint effusion. XR/XR elbow LT min 3V IMPRESSION: RIGHT ELBOW: Unremarkable examination. LEFT ELBOW: Unremarkable examination.
--- NOTE | ~2023-02-22 | XR_ITS ---
EXAMINATION: XR HAND, RIGHT XR HAND, LEFT CLINICAL INFORMATION: Bilateral hand pain and swelling. COMPARISON: Right and left hand radiographs dated 03/18/2014. TECHNIQUE: AP, oblique, and lateral views of the right and left hand. FINDINGS: RIGHT HAND: No acute fracture or dislocation. Normal carpal alignment. Moderate joint space narrowing with marginal osteophytes at the 1st metacarpophalangeal joint. More mild joint space narrowing with tiny marginal osteophyte scattered throughout the interphalangeal joints. No osseous erosion. No abnormal soft tissue calcification. LEFT HAND: No acute fracture or dislocation. Normal carpal alignment. Mild joint space narrowing with tiny marginal osteophytes at the 1st carpometacarpal joint. No osseous erosion. No abnormal soft tissue calcification. 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 More mild degenerative arthritis scattered throughout the interphalangeal joints. LEFT HAND: Mild degenerative arthritis at the 1st carpometacarpal joint. No osseous erosion.
--- NOTE | ~2023-02-22 | XR_ITS ---
EXAMINATION: XR HAND, RIGHT XR HAND, LEFT CLINICAL INFORMATION: Bilateral hand pain and swelling. COMPARISON: Right and left hand radiographs dated 03/18/2014. TECHNIQUE: AP, oblique, and lateral views of the right and left hand. FINDINGS: RIGHT HAND: No acute fracture or dislocation. Normal carpal alignment. Moderate joint space narrowing with marginal osteophytes at the 1st metacarpophalangeal joint. More mild joint space narrowing with tiny marginal osteophyte scattered throughout the interphalangeal joints. No osseous erosion. No abnormal soft tissue calcification. LEFT HAND: No acute fracture or dislocation. Normal carpal alignment. Mild joint space narrowing with tiny marginal osteophytes at the 1st carpometacarpal joint. No osseous erosion. No abnormal soft tissue calcification. 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 More mild degenerative arthritis scattered throughout the interphalangeal joints. LEFT HAND: Mild degenerative arthritis at the 1st carpometacarpal joint. No osseous erosion.
[2023-02-22 13:46] LABS: Free T4 (Free Thyroxine) 0.71 ng/dL (0.71-1.85); Thyroid Stimulating Hormone 1.46 uIU/mL (0.32-4.0)
== END 2023-02-22 10:55 | disposition home or self-care (01) ==
LOC: HO.HHCL 10:54
PROVIDERS: Visit Provider Family Medicine
DX: R94.6 Abnormal results of thyroid function studies (principal); M79.642 Pain in left hand; M79.641 Pain in right hand; M25.522 Pain in left elbow; M25.521 Pain in right elbow
CPT/HCPCS: 36415; 73080; 73130; 84439; 84443

== ENCOUNTER 2023-03-05 10:43 | Outpatient (AMB) | payer OTHER, SELFPAY ==
--- NOTE | 2023-03-05 10:45 | MHC.OFFVIS ---
Intake Vital Signs 03/05/23 10:56 Height 5 ft 3 in Weight 149 lb 11.102 oz BMI 26.5 BP 114/56 L Blood Pressure Location Lt brachial Position Sitting Pulse 79 Pulse Source Pulse Oximeter Temp 98.7 F Temp Source Skin Pulse Oximetry (%) 93 Oxygen Delivery Method Room Air Intake Visit Reasons: ra/fm Intake Note: Patient presents today to follow up on RA and fibromyalgia. Staff Registered Nurse Required: Yes Staff Registered Nurse Language: Caustics Loader Name: Romelia [id number] Information Interpreted: clinical only Accompanied by: Daughter Allergies lobster Allergy (Uncoded 03/05/23 10:56) Nausea and Vomiting HPI HPI Comments History of Present Illness Details Aspen is a 72-year-old female who returns for evaluation and follow-up of her rheumatoid arthritis and osteoarthritis. Her CLOTH GRADER accompanies her and assists with translation. With regards to her joints, Ms. Louise reports continuous pain to hands, wrists, elbows, hips, and knees. She also reports neck and shoulder pain. She continues with Sulfasalazine 1 gm twice per day and MTX 3 pills QW (was restarted at last visit (12/07/22). She uses Diclofenac 1% gel and Tramadol but reports minimal improvement to the 10/10 pain. She is s/p right shoulder replacement last year but denies any benefit and improvement in her pain and shoulder function. She complains that it is uncomfortable to make an fist and she cannot work with her hands or raise her hands above her head. 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 For the fibromyalgia and depression she remains on gabapentin at night, BuSpar, duloxetine, and Seroquel at night. [facility] Medical History (Updated 03/05/23 @ 13:10 by JANET Hughes-) Osteoarthritis (arthritis due to wear and tear of joints) Rheumatoid arthritis Chronic venous insufficiency Subclavian artery stenosis Carotid arterial disease AAA (abdominal aortic aneurysm) Diabetes Elevated cholesterol COPD (chronic obstructive pulmonary disease) Asthma PVD (peripheral vascular disease) CAD (coronary artery disease) HTN (hypertension) Surgical History History of arthroplasty of right shoulder Hx of removal of cyst Hx of endoscopy History of colonoscopy Family History Father No problems noted. Mother Family history of high blood pressure Hx of type 1 diabetes mellitus Social History Are you a primary manager urgent care to a significant other at home: No Do you presently have visiting nurse or other home services: Yes (CLOTH GRADER - daily) Alcohol intake: never Patient Tobacco Use Status: Former Tobacco user Quit Date: 10 yrs ago Tobacco use type: Cigarette service: No Current occupational status: disabled Review of Systems Const Details: Negative for appetite change, weight change, fever, chills, malaise Eyes Details: Negative for vision change, dry eyes,headaches and dizziness Card Details: Negative chest pain, edema and syncope Resp Details: Negative for SOB, cough and wheezing GI Details: Negative indigestion/heartburn, nausea, abdominal pain, bowel changes, diarrhea, constipation and bloody stool. Details: Denies increase urination, s/s of UTI, blood in urine Musc Details: Reports Multiple Joint pain as per HPI Skin/Breast Details: Denies Rashes, purpura, easy bruising Psych Details: Anxiety and depression are stable for now. Endo Details: Negative for polyuria and polydypsia [place]/Lymph Details: Negative for excessive bruising or bleeding. Physical Exam Vital Signs: Last Vital Signs Temp 98.7 F 03/05/23 10:56 Pulse 79 03/05/23 10:56 BP 114/56 L 03/05/23 10:56 Pulse Ox 93 03/05/23 10:56 Oxygen Delivery Method Room Air 03/05/23 10:56 BMI result Body Mass Index 26.5 APPEARANCE: Patient in no acute distress EYES no redness, pupils equal and reactive to light, eyelids normal CARD: RRR, S1 S2, no rubs or murmurs auscultated. Chest/Lung:.? Recent Xray (02/22/23). LS CTA, diminished in the bases. On palpation no tenderness, swelling, increased warmth or erythema. EXTREMITIES: No edema, no calf tenderness, normal peripheral pulses. SKIN: No inflammatory or neoplastic lesions. Normal color and turgor JOINT EXAM: Cervical Spine: Mild discomfort with extremes of normal range of motion.? No tenderness. Thoracic Spine: No scoliosis.? No tenderness on palpation. Lumbar Spine:.? Alignment normal.? Full range of motion without pain, no tenderness. Hands:. Recent Xrays 02/22/23. Mild to Moderate OA bilaterally. Right:? On PE, Stiffness with range of motion of the fingers; mild soft tissue swelling, on palpation moderate tenderness of the 1st 3 MCP and 5th MCP joints; tenderness at the base of the thumb. She has thickening at the 2nd PIP with tenderness.? No flexor tendon triggering, thenar atrophy or sensory loss.? Endorses that feels stiff to make a full fist and has discomfort when demonstrating manager configuration strength. Left:? Normal pain-free range of motion with mild swelling and tenderness of the 1st 3 MCP joints.? There is bony enlargement and tenderness at the base of the thumb. There is no flexor tendon triggering, thenar atrophy or sensory loss.? Other joints are without tenderness, swelling, increased warmth or erythema. Endorses that feels stiff to make a full fist and has discomfort when demonstrating manager configuration strength. Wrists:.? Pain with palpation, flexion extension at 75 degrees with some dorsal tenderness but no swelling, increased warmth or erythema. Elbows:? Recent Xrays 02/22/23 were unremarkable. Right:? Marked medial tenderness on palpation; medial pain with extremes of flexion or extension.? There is medial epicondylar tenderness with noticeable swelling; some tenderness over the joint space.? Left:? Normal pain-free range of motion without tenderness, swelling, increased warmth or erythema. Shoulders:? Right:? Moderate pain with abduction at about 80 degrees or with any attempted rotation.? There is mild anterior tenderness without swelling.? There may be some abductor weakness but no adenopathy.? Left:?? Mild pain with abduction 150 degrees or with more than 20 degrees of internal or external rotation.? There is mild anterior tenderness without adenopathy, abductor weakness or swelling.? Hips:? Right:? Slight groin and lateral pain with extremes of internal and external rotation.? No groin tenderness or mass.? Left:? Full range of motion without pain. Hip bursa:.? No tenderness. Knees:.?? Normal pain-free range of motion with mild patellofemoral crepitus but no effusion, tenderness, swelling, increased warmth or erythema.? Ankles:.? Normal pain-free range of motion without tenderness, swelling, increased warmth or erythema. Feet:? Normal pain-free range of motion without tenderness, swelling, increased warmth or erythema. Tender points: Mild tenderness to digital palpation at the occiput, trapezius, second rib, lateral epicondyle, knees, greater trochanter and gluteal area bilaterally. Results Reviewed Results Reviewed: Laboratory Tests 12/07/22 12:02 Eos % (Auto) 5.1 H ESR 49 H Chloride 109 H C-Reactive Protein 0.37 Hepatitis A IgM Ab Nonreactive Hep Bs Antigen Negative Hep Bs Antibody REACTIVE Hep B Core Total Ab Nonreactive Hepatitis C Ab (EIA) Nonreactive Laboratory Tests 12/07/22 12:02 WBC 6.0 RBC 4.26 Hgb 12.5 Hct 39.1 AST 21 ALT 13 Albumin 3.9 Assessment & Plan Assessment & Plan (1) Seronegative rheumatoid arthritis of multiple sites: Comment: Onset~ 2011?. RAMONA pos at [facility] 1:160 - 06/18 RF,CCP Ab negative.anti DNA, Scl 70,ANGEL SS-A, SS-B all negative Erosive and DJD changes in MCP joints(2015) Hydroxychloroquine started Feb 2015. Methotrexate added 2015. 06/22: sulfasalazine added Hydroxychloroquine stopped 08/21 - retinal edema Patient reported eye exam 09/18, 04/22, 03 January 2022: Methotrexate held in preparation for shoulder surgery. Not restarted so far. Sulfasalazine continued. Code(s): M06.09 - Rheumatoid arthritis without rheumatoid factor, multiple sites (2) Long-term use of immunosuppressant medication: Code(s): Z79.899 - Other computer terminal operator (current) drug therapy (3) Osteoporosis: Comment: On alendronate [id number] Code(s): M81.0 - Age-related osteoporosis without current pathological fracture (4) Osteoarthritis (arthritis due to wear and tear of joints): Code(s): M19.90 - Unspecified osteoarthritis, unspecified site Qualifiers: Osteoarthritis location: multiple joints Osteoarthritis type: primary Qualified Code(s): M15.9 - Polyosteoarthritis, unspecified Plan #Rheumatoid arthritis - She was restarted on MTX at last visit 12/06/22, but denies improvement to hands and elbows since restarting. -Given the multiple joint pain and swelling as outline on PE, elevated sed rate on last labs, I suspect she may benefit from a course of Prednisone with the goal to reduce joint pain and swelling. Will order a prednisone taper and evaluate for improvement at next visit in 1 month. will use steroids judiciously given history of AVN in right shoulder. -Continue MTX and Sulfasalazine. Consider increasing MTX from 3 to 5 pills at next visit to increase efficacy. In November of 2021 she was on 15 mg of methotrexate and at that time also continued to experience tenderness and swelling to her PIP and MCP joints.One wonders if methotrexate is effective managing her RA. -Elevated SED rate - Will order labs to evaluate for improved inflammatory markers - to be done 1 week before next visit. 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 We will order full refill at the next visit - Review labs next visit - Discussed side effects of MTX to include but not limited to fatigue, nausea, hair loss, elevated liver enzymes, lung fibrosis. - Continue Folic Acid 1mg -Discussed with patient that Folic Acid can improve or mitigate some of the side effects of MTX #Osteoarthritis: Explained that she also has osteoarthritis (OA)to multiple joints which can also causes discomfort and that it is important to differentiate the discomfort related to the OA versus the discomfort brought on active RA disease state. In addition the MTX and SLZ that treats the rheumatoid arthritis will not improve the discomfort that she experiences from the osteoarthritis. Therefore, our goal is to ensure that the rheumatoid arthritis is well managed. - Continue with Diclofenac 1% gel and Tramadol as directed. - Encouraged demonstrated hand exercises as tolerated. #Osteoporosis: Last Bone Density 10/21/20 with lowest T-Score 3.0 to spine. Risk includes post-menopause, use corticosteroids, inflammatory disease. - Continue with Alendronate, cholecalceferol, Calcium carbonate with D. Follow-up in 2 months is recommended. Orders: Orders C Reactive Protein Today M06.09 - Rheumatoid arthritis without rheumatoid factor, multiple sites Comprehensive Met. Panel Today M06.09 - Rheumatoid arthritis without rheumatoid factor, multiple sites Complete Blood Count Auto Diff Today M06.09 - Rheumatoid arthritis without rheumatoid factor, multiple sites Erythrocyte Sedimentation Rate Today M06.09 - Rheumatoid arthritis without rheumatoid factor, multiple sites, Z79.899 - Other prison (current) drug therapy Medications: New prednisone 3 tabs daily x 1 week, then 2 tabs daily x 2 weeks, then 1 tab daily x 1 week, then stop.; see taper instructions 60 tabs 0RF hand and Elbow pain M06.09 - Rheumatoid arthritis without rheumatoid factor, multiple sites Coding Level of Care Code Est Pt Level 4 (63529) Diagnoses Seronegative rheumatoid arthritis of multiple sites M06.09 Long-term use of immunosuppressant medication Z79.899 Osteoporosis M81.0 Primary osteoarthritis involving multiple joints M15.9 Osteoarthritis location: multiple joints Osteoarthritis type: primary
[2023-03-05 10:56] VITALS: BP 114/56; PULSE 79; TEMP 37.1; O2SAT 93; BMI 26.5
== END 2023-03-05 11:16 | disposition home or self-care (01) ==
PROVIDERS: PCP Family Medicine; Visit Provider Nurse Practitioner Family
DX: M06.09 Rheumatoid arthritis without rheumatoid factor, multiple sites (principal); Z79.899 Other long term (current) drug therapy; M81.0 Age-related osteoporosis without current pathological fracture; M15.9 Polyosteoarthritis, unspecified
CPT/HCPCS: 99214

== ENCOUNTER → 2023-03-05 10:43 | Outpatient (BNVA) | payer OTHER, SELFPAY | PROVIDERS: PCP Family Medicine; Visit Provider Nurse Practitioner Family | DX: M06.09 Rheumatoid arthritis without rheumatoid factor, multiple sites (principal); M81.0 Age-related osteoporosis without current pathological fracture; M15.9 Polyosteoarthritis, unspecified; Z79.899 Other long term (current) drug therapy | CPT/HCPCS: 99212 ==

== ENCOUNTER 2023-03-21 08:01 | Outpatient (REF) | payer OTHER, SELFPAY ==
--- NOTE | ~2023-03-21 | US_ITS ---
EXAMINATION: US ABDOMEN COMPLETE CLINICAL INFORMATION: Fatty change of liver. COMPARISON: Ultrasound abdomen complete 06/10/2019 and 02/17/2016. CTA abdomen 11/06/2017. X-ray KUB 11/23/2016. TECHNIQUE: Real-time imaging of the abdominal viscera. FINDINGS: PANCREAS: Normal. ABDOMINAL AORTA: The proximal and mid segments are nonaneurysmal. There is aneurysmal dilatation of the distal abdominal aorta, which measures 3.8 x 4.0 cm. On the CTA abdomen dated 11/06/2017, measurements were 3.3 x 3.3 cm. INFERIOR VENA CAVA: Visualized portions are normal. LIVER: The liver is normal in size. The liver contour is normal. There is diffuse increased liver parenchymal echogenicity. No focal hepatic lesion. There is no intrahepatic biliary duct dilatation seen. GALLBLADDER: Normal. The gallbladder is physiologically distended without evidence of stones, sludge, polyps, wall thickening or pericholecystic fluid. COMMON BILE DUCT: Borderline increased caliber, measuring 0.8 cm in diameter. RIGHT KIDNEY: Normal. No hydronephrosis. No renal calculi or focal parenchymal lesions. The kidney measures 11.0 cm in maximum dimension. LEFT KIDNEY: Normal. No hydronephrosis. No renal calculi or focal parenchymal lesions. The kidney measures 9.4 cm in maximum dimension. SPLEEN: Normal. The spleen measures 10.9 cm in maximum dimension. FREE FLUID: None. US/US abdomen complete IMPRESSION: 1. There is generalized increase in hepatic echotexture, consistent with fatty infiltration or hepatocellular disease. Please correlate clinically. No focal hepatic mass or intrahepatic biliary dilatation is seen. 2. There is borderline distention of the common bile duct to 8 mm. This is stable from 06/10/2019 and of doubtful acute clinical significance. 3. There is aneurysmal dilatation of the distal abdominal aorta, increased from CT dimensions of 11/06/2017. Elective Vascular Surgery evaluation and management is recommended.
== END 2023-03-21 08:02 | disposition home or self-care (01) ==
LOC: HO.US 08:01
PROVIDERS: PCP Family Medicine; Visit Provider Family Medicine
DX: K76.0 Fatty (change of) liver, not elsewhere classified (principal)
CPT/HCPCS: 76700

== ENCOUNTER 2023-04-05 08:47 | Outpatient (REF) | payer OTHER, SELFPAY ==
[2023-04-05 10:34] LABS: MANUAL DIFF FLAG NO
[2023-04-05 10:37] LABS: Basophils Absolute Auto 0.1 X10*3/uL (0.0-0.2); Eosinophils Absolute Auto 0.3 X10*3/uL (0.0-0.4); Eosinophils Percent Auto 4.5 % (0-4); Hematocrit 39.4 % (37.0-47.0); Hemoglobin 12.7 g/dl (12.0-16.0); Imm Gran Abs Auto 0.03 X10*3/uL (0.00-0.03); Imm Gran Pct Auto 0.5 % (0.0-0.4); Lymphocytes Absolute Auto 2.2 X10*3/uL (1.2-4.9); Mean Corpuscular HGB Conc 32.2 g/dl (31.0-35.0); Mean Corpuscular Hemoglobin 29.8 pg (27.0-33.0); Mean Corpuscular Volume 92.5 fL (80.0-98.0); Mean Platelet Volume 11.6 fL (9.4-12.3); Monocytes Absolute Auto 0.6 X10*3/uL (0.1-1.2); Monocytes Percent Auto 9.8 % (2-11); Neutrophils Absolute Auto 2.6 x10*3/uL (2.0-8.3); Neutrophils Percent Auto 46.2 % (45-73); Platelet Count 257 X10*3/uL (160-400); Red Blood Count 4.26 X10*6/uL (4.20-5.50); Red Cell Distribution Width 13.5 % (11.0-16.0); White Blood Count 5.7 X10*3/uL (4.8-10.8)
[2023-04-05 10:50] LABS: Alanine Aminotransferase 15 U/L (0-31); Alkaline Phosphatase 92 U/L (39-117); Anion Gap 14 (12-20); Aspartate Amino Transferase 19 U/L (5-31); Bilirubin Total 0.4 mg/dL (0.0-1.0); Blood Urea Nitrogen 19 mg/dL (9-16); C Reactive Protein 0.42 mg/dL (< or = 0.50); Calcium 9.7 mg/dL (8.4-10.2); Carbon Dioxide 24 mmol/L (22-29); Chloride 108 mmol/L (96-108); Estimated Glomerular Filt Rate > 60; Glucose Random 162 mg/dL (60-115); Potassium 3.9 mmol/L (3.3-5.1); Sodium 142 mmol/L (135-145); Total Protein 7.6 g/dL (6.5-8.0)
[2023-04-05 11:14] LABS: Erythrocyte Sedimentation Rate 45 MM/HR (0-20)
== END 2023-04-05 08:48 | disposition home or self-care (01) ==
LOC: HO.10HDL 08:47
PROVIDERS: Visit Provider Nurse Practitioner Family
DX: M06.9 Rheumatoid arthritis, unspecified (principal); Z79.899 Other long term (current) drug therapy
CPT/HCPCS: 36415; 80053; 85025; 85652; 86140

== ENCOUNTER 2023-04-05 09:26 | Outpatient (REF) | payer OTHER, SELFPAY ==
[2023-04-05 11:17] LABS: MANUAL DIFF FLAG NO
[2023-04-05 11:22] LABS: Basophils Absolute Auto 0.1 X10*3/uL (0.0-0.2); Basophils Percent Auto 0.9 % (0-2); Eosinophils Absolute Auto 0.3 X10*3/uL (0.0-0.4); Hematocrit 39.7 % (37.0-47.0); Hemoglobin 12.6 g/dl (12.0-16.0); Imm Gran Abs Auto 0.03 X10*3/uL (0.00-0.03); Imm Gran Pct Auto 0.6 % (0.0-0.4); Lymphocytes Percent Auto 36.1 % (20-40); Mean Corpuscular HGB Conc 31.7 g/dl (31.0-35.0); Mean Corpuscular Hemoglobin 29.9 pg (27.0-33.0); Mean Corpuscular Volume 94.1 fL (80.0-98.0); Mean Platelet Volume 11.8 fL (9.4-12.3); Monocytes Absolute Auto 0.5 X10*3/uL (0.1-1.2); Monocytes Percent Auto 9.1 % (2-11); Neutrophils Absolute Auto 2.6 x10*3/uL (2.0-8.3); Neutrophils Percent Auto 48.3 % (45-73); Platelet Count 248 X10*3/uL (160-400); Red Blood Count 4.22 X10*6/uL (4.20-5.50); Red Cell Distribution Width 13.5 % (11.0-16.0); White Blood Count 5.4 X10*3/uL (4.8-10.8)
[2023-04-05 11:31] LABS: Estimated Average Glucose 126 mg/dL
[2023-04-05 11:42] LABS: Alanine Aminotransferase 15 U/L (0-31); Alkaline Phosphatase 85 U/L (39-117); Anion Gap 11 (12-20); Aspartate Amino Transferase 19 U/L (5-31); Bilirubin Total 0.4 mg/dL (0.0-1.0); Blood Urea Nitrogen 19 mg/dL (9-16); Calcium 9.7 mg/dL (8.4-10.2); Carbon Dioxide 26 mmol/L (22-29); Chloride 109 mmol/L (96-108); Estimated Glomerular Filt Rate > 60; Glucose Random 127 mg/dL (60-115); Potassium 3.9 mmol/L (3.3-5.1); Sodium 142 mmol/L (135-145); Total Protein 7.7 g/dL (6.5-8.0)
[2023-04-05 12:07] LABS: Free T4 (Free Thyroxine) 0.64 ng/dL (0.71-1.85); Thyroid Stimulating Hormone 2.37 uIU/mL (0.32-4.0)
== END 2023-04-05 09:27 | disposition home or self-care (01) ==
LOC: HO.HHCL 09:26
PROVIDERS: Visit Provider Psychiatry & Neurology Psychiatry
DX: Z79.899 Other long term (current) drug therapy (principal)
CPT/HCPCS: 36415; 80053; 83036; 84439; 84443; 85025

== ENCOUNTER 2023-05-03 11:23 | Outpatient (AMB) | payer OTHER, SELFPAY ==
--- NOTE | 2023-05-03 11:26 | MHC.OFFVIS ---
Intake Vital Signs 05/03/23 11:35 Height 5 ft 3 in Weight 149 lb BMI 26.4 Intake Visit Reasons: New Prob- Bilateral thumb pain Intake Note: Aspen 72 yr old female who is left had dominant, presents today for a new problem for bilateral thumb pain. States her right thumb is worse. Pain is mainly by her CMC joint. States it looks deformed. States this affects her to do basic daily chores. Denies recent injury, injection or braces. Also has numbness and tingling in bilateral hands. Hx of R.A. Industrial Ecology Technician Required: Yes Allergies lobster Allergy (Uncoded 05/03/23 11:35) Nausea and Vomiting Medication List - Last Reconciled 05/03/23 by Jennifer Corley MD acetaminophen ER 650 mg PO TID albuterol sulfate 90 mcg/actuation (Ventolin HFA) 2 puffs inhalation Q4-6H PRN aspirin 81 mg PO DAILY buspirone 1 tab PO BID calcium carbonate-vitamin D3 600 mg-10 mcg (400 unit) 1 tab PO BID cholecalciferol (vitamin D3) 50 mcg PO DAILY clopidogrel 75 mg PO DAILY diclofenac sodium 1% 1 ea topical QID docusate sodium 100 mg PO BID 14 days duloxetine 60 mg PO BID evolocumab (Repatha SureClick) 1 ea subcut Q14D ezetimibe 10 mg PO DAILY fenofibrate 160 mg PO DAILY fexofenadine 180 mg PO DAILY fluticasone propion-salmeterol 500-50 mcg/dose 1 inh inhalation BID folic acid 1 mg PO DAILY gabapentin 300 mg PO DAILY ipratropium-albuterol 0.5 mg-3 mg(2.5 mg base)/3 mL mL inhalation ketorolac 0.5% 1 drp ophthalmic-Right TID lidocaine 5% 1 patch topical DAILY metformin ER 500 mg PO BID methotrexate sodium 7.5 mg (3 x 2.5 mg) PO QWEEK midodrine 1 tab PO BID montelukast 10 mg PO DAILY prednisone 3 tabs daily x 1 week, then 2 tabs daily x 2 weeks, then 1 tab daily x 1 week, then stop.; see taper instructions quetiapine 1 tab PO BEDTIME rosuvastatin 40 mg PO DAILY sodium chloride 0.65% (Deep Sea Nasal) 1 - 2 sprays intranasal Q2-3H PRN sulfasalazine 1,000 mg (2 x 500 mg) PO BID tramadol 1 tab PO BID PRN umeclidinium 62.5 mcg/actuation (Incruse Ellipta) 1 inh inhalation DAILY HPI HPI Comments History of Present Illness Details History of RA and Right TSA 01/24/22. 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 She has recently been on prednisone taper prescribed by rheumatology. Points to right radial wrist and CMC, MCP joints for pain. Swelling on her fingers. Finger numbness. Denies dropping things but reports weakness. Has neck pain. [facility] Medical History (Updated 05/03/23 @ 11:55 by Jennifer Corley MD) Rheumatoid arthritis Osteoarthritis (arthritis due to wear and tear of joints) Chronic venous insufficiency Subclavian artery stenosis Carotid arterial disease AAA (abdominal aortic aneurysm) Diabetes Elevated cholesterol COPD (chronic obstructive pulmonary disease) Asthma PVD (peripheral vascular disease) CAD (coronary artery disease) HTN (hypertension) Surgical History History of arthroplasty of right shoulder Hx of removal of cyst Hx of endoscopy History of colonoscopy Family History Father No problems noted. Mother Family history of high blood pressure Hx of type 1 diabetes mellitus Social History (Updated 05/03/23 @ 11:36 by Jannette Chow [facility] Are you a primary managed care coordinator to a significant other at home: No Do you presently have visiting nurse or other home services: Yes (DRY END OPERATOR - daily) Alcohol intake: never Patient Tobacco Use Status: Former Tobacco user Quit Date: 10 yrs ago Tobacco use type: Cigarette service: No Current occupational status: disabled Current occupation: left hand Review of Systems Const All systems reviewed & are unremarkable except as noted in HPI and below Physical Exam Vital Signs: BMI result Body Mass Index 26.4 Constitutional: Patient appears to be in no acute distress, well nourished and well developed. MSK: Inspection reveals appropriate head and neck positioning. No pain with palpation over the neck musculature. Cervical ROM was full. Spurling's sign negative. No intrinsic hand weakness noted. No atrophy noted. Isaias test negative. Carpal compression test negative. Tinel sign negative. Right 1st, 2nd, 3rd MCP joints and large. Swelling of 1st to 3rd digits right. Strength is 5/5 in all muscle groups tested. No increased tone noted. Neurological: Neurologic examination of the upper and lower extremities was nonfocal with intact sensation, muscle stretch reflexes and without focal motor deficits . Castaneda?s negative bilaterally. Gait is non-antalgic without loss of balance. Results Reviewed Results Reviewed: I independently reviewed the results of the following: Hand x-ray showed arthritic changes right 1st MCP and IP joints. I reviewed records from the following: Ortho Rheumatology Assessment & Plan Assessment & Plan (1) Joint pain: Code(s): M25.50 - Pain in unspecified joint Qualifiers: Joint pain location: hand Laterality: right Qualified Code(s): M25.541 - Pain in joints of right hand (2) Synovitis of finger: Code(s): M65.9 - Synovitis and tenosynovitis, unspecified Plan Active joint inflammation/synovitis on right 1st to 3rd MCP joints and 1st IP joints, in the setting of RA. We need to find a way to decrease inflammation without injecting steroid, given risk and history of AVN. Will custom make finger splints for her right hand. Patient to wear during the day as much as she can until active inflammation improves. We looked that hand x-ray images together so she understands her diagnosis. Denies any numbness so no need for EMG at this time. Assessment and plan discussed with patient, and patient was agreeable. All questions were answered thoroughly. Jennifer Corley MD, BIANCA Board Certified, [place] [employer] and Rehabilitation (ABPMR) Board Certified, [place] [employer] of Electrodiagnostic Medicine (ABEM) Coding Level of Care Code New Pt Level 4 (51979) Diagnoses Arthralgia of right hand M25.541 Joint pain location: hand Laterality: right Synovitis of finger M65.9
[2023-05-03 11:35] VITALS: BMI 26.4
== END 2023-05-03 12:13 | disposition home or self-care (01) ==
PROVIDERS: PCP Family Medicine; Visit Provider Physical Medicine & Rehabilitation
DX: M25.541 Pain in joints of right hand (principal); M65.9 Synovitis and tenosynovitis, unspecified
CPT/HCPCS: 99204

== ENCOUNTER → 2023-05-03 11:23 | Outpatient (BNVA) | payer OTHER, SELFPAY | PROVIDERS: PCP Family Medicine; Visit Provider Physical Medicine & Rehabilitation | DX: M25.541 Pain in joints of right hand (principal); M65.9 Synovitis and tenosynovitis, unspecified | CPT/HCPCS: 99202 ==

== ENCOUNTER 2023-05-09 10:52 | Outpatient (AMB) | payer OTHER, SELFPAY ==
[2023-05-09 11:02] VITALS: BP 110/64; PULSE 85; RESP 16; TEMP 36.2; O2SAT 96; BMI 26.7
--- NOTE | 2023-05-09 11:02 | MHC.OFFVIS ---
Intake Vital Signs 05/09/23 11:02 Height 5 ft 3 in Weight 150 lb 9.211 oz BMI 26.7 BP 110/64 Blood Pressure Location Rt brachial Position Sitting Respiration 16 Pulse 85 Pulse Source Pulse Oximeter Temp 97.2 F Temp Source Tympanic Pulse Oximetry (%) 96 Oxygen Delivery Method Room Air Intake Visit Reasons: ra/fm Lumber Stacker Driver Required: Yes Lumber Stacker Driver Name: Charmaine [id number] Accompanied by: FINE ARTS CHAIR Allergies lobster Allergy (Uncoded 05/09/23 11:03) Nausea and Vomiting Medication List - Last Reconciled 05/09/23 by Felisha Perez RN acetaminophen ER 650 mg PO TID albuterol sulfate 90 mcg/actuation (Ventolin HFA) 2 puffs inhalation Q4-6H PRN aspirin 81 mg PO DAILY buspirone 1 tab PO BID calcium carbonate-vitamin D3 600 mg-10 mcg (400 unit) 1 tab PO BID cholecalciferol (vitamin D3) 50 mcg PO DAILY clopidogrel 75 mg PO DAILY diclofenac sodium 1% 1 ea topical QID docusate sodium 100 mg PO BID 14 days duloxetine 60 mg PO BID evolocumab (Repatha SureClick) 1 ea subcut Q14D ezetimibe 10 mg PO DAILY fenofibrate 160 mg PO DAILY fexofenadine 180 mg PO DAILY fluticasone propion-salmeterol 500-50 mcg/dose 1 inh inhalation BID folic acid 1 mg PO DAILY gabapentin 300 mg PO DAILY ipratropium-albuterol 0.5 mg-3 mg(2.5 mg base)/3 mL mL inhalation ketorolac 0.5% 1 drp ophthalmic-Right TID lidocaine 5% 1 patch topical DAILY metformin ER 500 mg PO BID methotrexate sodium 7.5 mg (3 x 2.5 mg) PO QWEEK midodrine 1 tab PO BID montelukast 10 mg PO DAILY prednisone 3 tabs daily x 1 week, then 2 tabs daily x 2 weeks, then 1 tab daily x 1 week, then stop.; see taper instructions quetiapine 1 tab PO BEDTIME rosuvastatin 40 mg PO DAILY sodium chloride 0.65% (Deep Sea Nasal) 1 - 2 sprays intranasal Q2-3H PRN sulfasalazine 1,000 mg (2 x 500 mg) PO BID tramadol 1 tab PO BID PRN umeclidinium 62.5 mcg/actuation (Incruse Ellipta) 1 inh inhalation DAILY HPI HPI Comments History of Present Illness Details Aspen is a 72-year-old female who returns for follow-up of her rheumatoid arthritis. Her FINE ARTS CHAIR accompanies her and assists with translation. She denies that the hand pain was improved with Prednisone. Prior Visit Aspen is a 72-year-old female who returns for evaluation and follow-up of her rheumatoid arthritis and osteoarthritis. Her FINE ARTS CHAIR accompanies her and assists with translation. With regards to her joints, Ms. Louise reports continuous pain to hands, wrists, elbows, hips, and knees. She also reports neck and shoulder pain. She continues with Sulfasalazine 1 gm twice per day and MTX 3 pills QW (was restarted at last visit (12/07/22). She uses Diclofenac 1% gel and Tramadol but reports minimal improvement to the 10/10 pain. She is s/p right shoulder replacement last year but denies any benefit and improvement in her pain and shoulder function. She complains that it is uncomfortable to make an fist and she cannot work with her hands or raise her hands above her head. 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 For the fibromyalgia and depression she remains on gabapentin at night, BuSpar, duloxetine, and Seroquel at night. [facility] Medical History Rheumatoid arthritis Osteoarthritis (arthritis due to wear and tear of joints) Chronic venous insufficiency Subclavian artery stenosis Carotid arterial disease AAA (abdominal aortic aneurysm) Diabetes Elevated cholesterol COPD (chronic obstructive pulmonary disease) Asthma PVD (peripheral vascular disease) CAD (coronary artery disease) HTN (hypertension) Surgical History History of arthroplasty of right shoulder Hx of removal of cyst Hx of endoscopy History of colonoscopy Family History Father No problems noted. Mother Family history of high blood pressure Hx of type 1 diabetes mellitus Social History Are you a primary adult care provider to a significant other at home: No Do you presently have visiting nurse or other home services: Yes (FINE ARTS CHAIR - daily) Alcohol intake: never Patient Tobacco Use Status: Former Tobacco user Quit Date: 10 yrs ago Tobacco use type: Cigarette service: No Current occupational status: disabled Current occupation: left hand Review of Systems Const All systems reviewed & are unremarkable except as noted in HPI and below Physical Exam Vital Signs: Last Vital Signs Temp 97.2 F 05/09/23 11:02 Pulse 85 05/09/23 11:02 Resp 16 05/09/23 11:02 BP 110/64 05/09/23 11:02 Pulse Ox 96 05/09/23 11:02 Oxygen Delivery Method Room Air 05/09/23 11:02 BMI result Body Mass Index 26.7 APPEARANCE: Patient in no acute distress EYES no redness, pupils equal and reactive to light, eyelids normal CARD: RRR, S1 S2, no rubs or murmurs auscultated. Chest/Lung:.? Recent Xray (02/22/23). LS CTA, diminished in the bases. On palpation no tenderness, swelling, increased warmth or erythema. Hands:. Recent Xrays 02/22/23. Mild to Moderate OA bilaterally. Right:? On PE, Stiffness with range of motion of the fingers; mild soft tissue swelling, on palpation moderate tenderness of the 1st 3 MCP and 5th MCP joints; tenderness at the base of the thumb. She has thickening at the 2nd PIP with tenderness.? No flexor tendon triggering, thenar atrophy or sensory loss.? Endorses that feels stiff to make a full fist and has discomfort when demonstrating graphics artist strength. Left:? Normal pain-free range of motion with mild swelling and tenderness of the 1st 3 MCP joints.? There is bony enlargement and tenderness at the base of the thumb. There is no flexor tendon triggering, thenar atrophy or sensory loss.? Other joints are without tenderness, swelling, increased warmth or erythema. Endorses that feels stiff to make a full fist and has discomfort when demonstrating graphics artist strength. Wrists:.? Pain with palpation, flexion extension at 75 degrees with some dorsal tenderness but no swelling, increased warmth or erythema. Elbows:? Recent Xrays 02/22/23 were unremarkable. Right:? Marked medial tenderness on palpation; medial pain with extremes of flexion or extension.? There is medial epicondylar tenderness with noticeable swelling; some tenderness over the joint space.? Left:? Normal pain-free range of motion without tenderness, swelling, increased warmth or erythema. Shoulders:? Right:? Moderate pain with abduction at about 80 degrees or with any attempted rotation.? There is mild anterior tenderness without swelling.? There may be some abductor weakness but no adenopathy.? Left:?? Mild pain with abduction 150 degrees or with more than 20 degrees of internal or external rotation.? There is mild anterior tenderness without adenopathy, abductor weakness or swelling.? Ankles:.? Normal pain-free range of motion without tenderness, swelling, increased warmth or erythema. Feet:? Normal pain-free range of motion without tenderness, swelling, increased warmth or erythema. Tender points: Mild tenderness to digital palpation at the occiput, trapezius, second rib, lateral epicondyle, knees, greater trochanter and gluteal area bilaterally. Assessment & Plan Assessment & Plan (1) Seronegative rheumatoid arthritis of multiple sites: Comment: Onset~ 2011?. 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 Methotrexate added 2015. 06/22: sulfasalazine added Hydroxychloroquine stopped 08/21 - retinal edema Patient reported eye exam 09/18, 04/22, 03 January 2022: Methotrexate held in preparation for shoulder surgery. Not restarted so far. Sulfasalazine continued. Code(s): M06.09 - Rheumatoid arthritis without rheumatoid factor, multiple sites (2) Long-term use of immunosuppressant medication: Code(s): Z79.899 - Other superintendent container terminal (current) drug therapy Plan #Rheumatoid arthritis - Patient continues with swollen and tender joints clearly not improved with Prednisone. I had considered increasing the MTX, but she has had liver irritation on higher doses. She continues with Elevated ESR. Given the multiple joint pain and swelling as outline on PE, elevated sed rate on last labs, and no relief with prednisone, I will start her on HUMIRA with the goal to reduce joint pain and swelling. She will continue MTX and Sulfasalazine and MTX from 3 pills. We will consider to taper off one of these if HUMIRA is effective. 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 We also discussed the side effects of HUMIRA and will monitor CBC. Patient knows to stop medication if she has a fever or infection. - Continue Folic Acid 1mg -Discussed with patient that Folic Acid can improve or mitigate some of the side effects of MTX Follow-up in 2 months is recommended. Orders: Orders T Spot TB Today M06.9 - Rheumatoid arthritis, unspecified, Z79.899 - Other nursing home (current) drug therapy Coding Level of Care Code Est Pt Level 3 (23634) Diagnoses Seronegative rheumatoid arthritis of multiple sites M06.09 Long-term use of immunosuppressant medication Z79.899
== END 2023-05-09 11:37 | disposition home or self-care (01) ==
PROVIDERS: PCP Family Medicine; Visit Provider Nurse Practitioner Family
DX: M06.09 Rheumatoid arthritis without rheumatoid factor, multiple sites (principal); Z79.899 Other long term (current) drug therapy
CPT/HCPCS: 99213

== ENCOUNTER → 2023-05-09 10:52 | Outpatient (BNVA) | payer OTHER, SELFPAY | PROVIDERS: PCP Family Medicine; Visit Provider Nurse Practitioner Family | DX: M06.09 Rheumatoid arthritis without rheumatoid factor, multiple sites (principal); Z79.899 Other long term (current) drug therapy | CPT/HCPCS: 99212 ==

== ENCOUNTER 2023-06-07 13:28 | Outpatient (AMB) | payer OTHER, SELFPAY ==
[2023-06-07 13:30] VITALS: BP 136/70; PULSE 76; O2SAT 96; BMI 26.6
--- NOTE | 2023-06-07 13:30 | MHC.OFFVIS ---
Intake Vital Signs 06/07/23 13:30 Height 5 ft 3 in Weight 150 lb BMI 26.6 BP 136/70 Blood Pressure Location Rt brachial Position Sitting Pulse 76 Pulse Source Pulse Oximeter Pulse Oximetry (%) 96 Oxygen Delivery Method Room Air Intake Visit Reasons: AAA. Routine Intake Note: Pt presents to the office today for a AAA routine follow up. Pt states she is only having pain in her arms at this point and time. Pt denies any nausea,back pain, or stomach pain. Allergies lobster Allergy (Uncoded 06/07/23 13:31) Nausea and Vomiting HPI AAA. Routine HPI Details Very pleasant 73-year-old female presents for evaluation regarding abdominal aortic aneurysm. This was PET up on a routine ultrasound of the abdomen 4 fatty changes of the liver. She was unaware of any aneurysmal disease. At the current time denies any abdominal pain is totally asymptomatic. She is a former smoker and quit nearly 10 years ago. She is a nondiabetic. She now presents for evaluation regarding her aneurysm. [facility] Medical History Rheumatoid arthritis Osteoarthritis (arthritis due to wear and tear of joints) Chronic venous insufficiency Subclavian artery stenosis Carotid arterial disease AAA (abdominal aortic aneurysm) Diabetes Elevated cholesterol COPD (chronic obstructive pulmonary disease) Asthma PVD (peripheral vascular disease) CAD (coronary artery disease) HTN (hypertension) Surgical History History of arthroplasty of right shoulder Hx of removal of cyst Hx of endoscopy History of colonoscopy Family History Father No problems noted. 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 MANAGER - daily) Alcohol intake: never Patient Tobacco Use Status: Former Tobacco user Quit Date: 10 yrs ago Tobacco use type: Cigarette service: No Current occupational status: disabled Current occupation: left hand Review of Systems Const All systems reviewed & are unremarkable except as noted in HPI and below Reports no additional complaints ENT Reports Normal hearing present Card Denies chest pain, Denies chest pain at rest, Denies chest pain with activity and Denies pedal edema Resp Denies cough GI Denies abdominal pain Musc Denies abnormal gait, Denies muscle cramps and Denies radiating pain into limb Skin/Breast Denies skin ulcer and Denies wounds Neuro Reports Normal hearing present and Denies abnormal gait Psych Reports no additional complaints Physical Exam Vital Signs: Last Vital Signs Pulse 76 06/07/23 13:30 BP 136/70 06/07/23 13:30 Pulse Ox 96 06/07/23 13:30 Oxygen Delivery Method Room Air 06/07/23 13:30 BMI result Body Mass Index 26.6 Const General: cooperative, healthy appearing and comfortable Orientation/consciousness: oriented to person, oriented to place and oriented to time HEENT Head: Yes normal to inspection Neck Neck: Yes normal visual inspection Carotids: no bruits Chest Chest palpation & inspection: normal inspection of the chest Resp Effort & Inspection: normal respiratory effort and able to speak in complete sentences Auscultation: clear to auscultation bilaterally, no crackles, no rales, no rhonchi and no wheezes Cardio Rate: regular rate Rhythm: regular rhythm Heart sounds: S1 normal heart sound present and S2 normal heart sound present Bruits: no carotid bruits Peripheral pulses: Peripheral pulses 2+ throughout GI Inspection: Yes normal to inspection Skin Wounds: no wounds Hair: normal Neuro General: oriented to person, oriented to place and oriented to time Cranial nerves: Yes CN's II-XII intact bilaterally and Yes Normal hearing present Cognition (Neuro): normal cognition Motor exam (neuro): 5/5 motor strength present throughout Extrem Other: venous exam: No significant superficial varicosities or spider telangiectasias, minimal edema General: No clubbing, No cyanosis and No edema Psych Appearance: grossly normal Mental Status: mental status grossly normal Speech and movement: Normal speech and movement present Results Reviewed Results Reviewed: Ultrasound dated 03/21/2023 demonstrates aneurysm measuring 3 point 8 cm on AP dimension. Previous CTA dated 11/06/2017 measures 3.3 cm. Written report and images of both were reviewed. Assessment & Plan Assessment & Plan (1) AAA (abdominal aortic aneurysm): Code(s): I71.4 - Abdominal aortic aneurysm, without rupture Qualifiers: Abdominal aorta location: infrarenal aorta Presence of rupture: without rupture Qualified Code(s): I71.43 - Infrarenal abdominal aortic aneurysm, without rupture Plan: In short patient has radiologic evidence of a AAA on ultrasound of 3.8 cm. We have discussed the pathophysiology of aortic aneurysms and the risk of ruptures. We have discussed rupture risk based on size. In addition we have discussed conservative measures and risk factor modification for prevention of increase in size of the aneurysm. the patient is scheduled for surveillance follow-up in approximately 1 year. Thank you for allowing us to participate in the care of this patient Orders: Orders US abdominal aortic aneurysm 364 Days I71.43 - Infrarenal abdominal aortic aneurysm, without rupture Coding Level of Care Code New Pt Level 4 (47883) Diagnoses Infrarenal abdominal aortic aneurysm (AAA) without rupture I71.43 Abdominal aorta location: infrarenal aorta Presence of rupture: without rupture
== END 2023-06-07 14:01 | disposition home or self-care (01) ==
PROVIDERS: PCP Family Medicine; Visit Provider Surgery Vascular Surgery
DX: I71.43 Infrarenal abdominal aortic aneurysm, without rupture (principal)
CPT/HCPCS: 99203

== ENCOUNTER → 2023-06-07 13:28 | Outpatient (BNVA) | payer OTHER, SELFPAY | PROVIDERS: PCP Family Medicine; Visit Provider Surgery Vascular Surgery | DX: I71.43 Infrarenal abdominal aortic aneurysm, without rupture (principal) | CPT/HCPCS: 99202 ==

== ENCOUNTER 2023-07-04 10:34 | Outpatient (REF) | payer OTHER, SELFPAY ==
[2023-07-07 11:39] LABS: TS Negative Control Passed; TS Panel A 0; TS Panel B 0; TS Positive Control Passed; TSpotTB Negative (Negative)
== END 2023-07-04 10:35 | disposition home or self-care (01) ==
LOC: HO.LAB 10:34
PROVIDERS: PCP Family Medicine; Visit Provider Nurse Practitioner Family
DX: M06.9 Rheumatoid arthritis, unspecified (principal); Z79.899 Other long term (current) drug therapy
CPT/HCPCS: 36415; 86481

== ENCOUNTER 2023-07-30 13:41 | Outpatient (REF) | payer OTHER, SELFPAY | END 2023-07-30 13:42 | disposition home or self-care (01) | LOC: HO.MAMMO 13:41 | PROVIDERS: PCP Family Medicine; Visit Provider Family Medicine | DX: Z12.31 Encounter for screening mammogram for malignant neoplasm of breast (principal) | CPT/HCPCS: 77063; 77067 ==

== ENCOUNTER → 2023-07-30 13:45 | Outpatient (BNV) | payer OTHER, SELFPAY | PROVIDERS: PCP Family Medicine; Visit Provider Radiology Diagnostic Radiology | DX: Z12.31 Encounter for screening mammogram for malignant neoplasm of breast (principal) | CPT/HCPCS: 77063; 77067 ==

== ENCOUNTER 2023-09-05 09:10 | Outpatient (AMB) | payer OTHER, SELFPAY ==
--- NOTE | 2023-09-05 09:18 | MHC.OFFVIS ---
Intake Vital Signs 09/05/23 09:19 Height 5 ft 3 in Weight 150 lb BMI 26.6 Handedness Left Intake Visit Reasons: OV - B/L thumb pain Intake Note: Aspen is a 72 year old left hand dominant female who presents today for a follow up of her bilateral thumb pain. She states that her left thumb is worse than the right. She states that the finger splints didn't provide her with relief. Environmental Emergencies Planner Required: Yes Allergies lobster Allergy (Uncoded 06/07/23 13:31) Nausea and Vomiting HPI HPI Comments History of Present Illness Details History of RA and Right TSA 01/24/22. 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 She has recently been on prednisone taper prescribed by rheumatology. Most recent note says she will start on Actemra. Initially showed with right radial wrist and CMC, MCP joints for pain. Swelling on her fingers. I thought she was having ongoing synovitis then. Denies dropping things but reports weakness. Seem with SALES AGENT [employer]ING [employer] who is very involved in her management/health and translated for her. [facility] Medical History Rheumatoid arthritis Osteoarthritis (arthritis due to wear and tear of joints) Chronic venous insufficiency Subclavian artery stenosis Carotid arterial disease AAA (abdominal aortic aneurysm) Diabetes Elevated cholesterol COPD (chronic obstructive pulmonary disease) Asthma PVD (peripheral vascular disease) CAD (coronary artery disease) HTN (hypertension) Surgical History History of arthroplasty of right shoulder Hx of removal of cyst Hx of endoscopy History of colonoscopy Family History Father No problems noted. Mother Family history of high blood pressure Hx of type 1 diabetes mellitus Social History Are you a primary daycare manager to a significant other at home: No Do you presently have visiting nurse or other home services: Yes ([employer] V[employer] - daily) Alcohol intake: never Patient Tobacco Use Status: Former Tobacco user Quit Date: 10 yrs ago Tobacco use type: Cigarette service: No Current occupational status: disabled Current occupation: left hand Physical Exam Vital Signs: BMI result Body Mass Index 26.6 Constitutional: Patient appears to be in no acute distress, well nourished and well developed. MSK: Inspection reveals appropriate head and neck positioning. No pain with palpation over the neck musculature. Cervical ROM was full. Spurling's sign negative. No intrinsic hand weakness noted. No atrophy noted. Isaias test negative. Carpal compression test negative. Tinel sign negative. Right 1st CMC and 2nd, 3rd MCP joints bony enlargement but no effusion. Swelling of 1st to 3rd digits right. Left 2nd-4th MCP joints bony enlargement but no effusion or redness. Neurological: Neurologic examination of the upper and lower extremities was nonfocal with intact sensation, muscle stretch reflexes and without focal motor deficits . Castaneda?s negative bilaterally. Gait is non-antalgic without loss of balance. Assessment & Plan Assessment & Plan (1) Joint pain: Code(s): M25.50 - Pain in unspecified joint Qualifiers: Joint pain location: hand Laterality: right Qualified Code(s): M25.541 - Pain in joints of right hand (2) Synovitis of finger: Code(s): M65.9 - Synovitis and tenosynovitis, unspecified Plan Today most of the pain is on 2nd left MCP. It appears to be bony enlargement to me without active synovitis. Her fingers on right 2nd-4th though appear to be more swollen. Discussed that treatment medically for RA is primary. Reviewed notes from Rheumatology and they are starting her on Actemra. She is curious about injection and I did say that would be for focal treatment of painful joint but does not replace medical treatment for RA. They opted to wait and see if new medication for RA will help better. If not, they would call back in 4-6 months if they would try the injection. For injections, I would recommend she sees Dr. Sanon. There is no triggering today, no need for trigger finger surgery. We briefly talked about synovectomy but again that would be secondary, last resort, after medical treatment of RA is maximized. At that point, she should see Dr. Sanon. She will continue the finger splints given last visit. Assessment and plan discussed with patient, and patient was agreeable. All questions were answered thoroughly. Total of 35 minutes spent today including chart review, results review, history taking, physical examination, discussion of assessment and plan, and coordination of care. [ ] Jennifer Corley MD, BIANCA Board Certified, [place] [employer] and Rehabilitation (ABPMR) Board Certified, [place] [employer] Electro[employer] (ABEM) Coding Level of Care Code Est Pt Level 4 (07835) Diagnoses Arthralgia of right hand M25.541 Joint pain location: hand Laterality: right Synovitis of finger M65.9
[2023-09-05 09:19] VITALS: BMI 26.6
== END 2023-09-05 10:19 | disposition home or self-care (01) ==
PROVIDERS: PCP Family Medicine; Visit Provider Physical Medicine & Rehabilitation
DX: M25.541 Pain in joints of right hand (principal); M65.9 Synovitis and tenosynovitis, unspecified
CPT/HCPCS: 99214

== ENCOUNTER → 2023-09-05 09:10 | Outpatient (BNVA) | payer OTHER, SELFPAY | PROVIDERS: PCP Family Medicine; Visit Provider Physical Medicine & Rehabilitation | DX: M25.541 Pain in joints of right hand (principal); M65.9 Synovitis and tenosynovitis, unspecified | CPT/HCPCS: 99212 ==

== ENCOUNTER 2023-09-14 11:19 | Outpatient (AMB) | payer OTHER, SELFPAY ==
--- NOTE | 2023-09-14 11:22 | A.OFFVIS_ITS ---
Intake Vital Signs 09/14/23 11:23 Height 5 ft 3 in Weight 150 lb 9.211 oz BMI 26.7 BP 104/70 Blood Pressure Location Rt brachial Position Sitting Pulse 71 Pulse Source Pulse Oximeter Pulse Oximetry (%) 94 Oxygen Delivery Method Room Air Intake Visit Reasons: RA Intake Note: Patient last seen 05/09/23 by Ray, presents today for follow up and test r esults. Local Hazmat Driver Required: Yes Local Hazmat Driver Language: Supervisor Intelligence Analyst Name: Charmaine Owen Information Interpreted: clinical only Accompanied by: BUSINESS OFFICE DIRECTOR Allergies lobster Allergy (Uncoded 09/14/23 11:24) Nausea and Vomiting HPI HPI Comments History of Present Illness Details Aspen is a 72-year-old female who returns for follow-up of her rheumatoid arthritis. Her BUSINESS OFFICE DIRECTOR accompanies (Gayathri)her and assists with translation. Continues with hand and wrist pain and swelling. She started Humira but has had challenges with doing it correctly. Desires teaching today. Prior Visit 03/05/2023 Aspen is a 72-year-old female who returns for evaluation and follow-up of her rheumatoid arthritis and osteoarthritis. Her BUSINESS OFFICE DIRECTOR accompanies her and assists with translation. With regards to her joints, Ms. Louise reports continuous pain to hands, wrists, elbows, hips, and knees. She also reports neck and shoulder pain. She continues with Sulfasalazine 1 gm twice per day and MTX 3 pills QW (was restarted at last visit (12/07/22). She uses Diclofenac 1% gel and Tramadol but reports minimal improvement to the 10/10 pain. She is s/p right shoulder replacement last year but denies any benefit and improvement in her pain and shoulder function. She complains that it is uncomfortable to make an fist and she cannot work with her hands or raise her hands above her head. 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 For the fibromyalgia and depression she remains on gabapentin at night, BuSpar, duloxetine, and Seroquel at night. [facility] Medical History Rheumatoid arthritis Osteoarthritis (arthritis due to wear and tear of joints) Chronic venous insufficiency Subclavian artery stenosis Carotid arterial disease AAA (abdominal aortic aneurysm) Diabetes Elevated cholesterol COPD (chronic obstructive pulmonary disease) Asthma PVD (peripheral vascular disease) CAD (coronary artery disease) HTN (hypertension) Surgical History History of arthroplasty of right shoulder Hx of removal of cyst Hx of endoscopy History of colonoscopy Family History Father No problems noted. Mother Family history of high blood pressure Hx of type 1 diabetes mellitus Social History Are you a primary home health care provider to a significant other at home: No Do you presently have visiting nurse or other home services: Yes (BUSINESS OFFICE DIRECTOR - daily) Alcohol intake: never Patient Tobacco Use Status: Former Tobacco user Quit Date: 10 yrs ago Tobacco use type: Cigarette service: No Current occupational status: disabled Current occupation: left hand Review of Systems Const All systems reviewed & are unremarkable except as noted in HPI and below Physical Exam Vital Signs: Last Vital Signs Pulse 71 09/14/23 11:23 BP 104/70 09/14/23 11:23 Pulse Ox 94 09/14/23 11:23 Oxygen Delivery Method Room Air 09/14/23 11:23 BMI result Body Mass Index 26.7 APPEARANCE: Patient in no acute distress EYES no redness, pupils equal and reactive to light, eyelids normal CARD: RRR, S1 S2, no rubs or murmurs auscultated. Chest/Lung:.? Recent Xray (02/22/23). LS CTA, diminished in the bases. On palpation no tenderness, swelling, increased warmth or erythema. Hands:. Recent Xrays 02/22/23. Mild to Moderate OA bilaterally. Right:? On PE, Stiffness with range of motion of the fingers; mild soft tissue swelling, on palpation moderate tenderness of the 1st 3 MCP and 5th MCP joints; tenderness at the base of the thumb. She has thickening at the 2nd PIP with tenderness.? No flexor tendon triggering, thenar atrophy or sensory loss.? Endorses that feels stiff to make a full fist and has discomfort when demonstrating ventilating expert strength. Left:? Normal pain-free range of motion with mild swelling and tenderness of the 1st 3 MCP joints.? There is bony enlargement and tenderness at the base of the thumb. There is no flexor tendon triggering, thenar atrophy or sensory loss.? Other joints are without tenderness, swelling, increased warmth or erythema. Endorses that feels stiff to make a full fist and has discomfort when demonstrating ventilating expert strength. Wrists:.? Pain with palpation, flexion extension at 75 degrees with some dorsal tenderness but no swelling, increased warmth or erythema. Elbows:? Recent Xrays 02/22/23 were unremarkable. Right:? Marked medial tenderness on palpation; medial pain with extremes of flexion or extension.? There is medial epicondylar tenderness with noticeable swelling; some tenderness over the joint space.? Left:? Normal pain-free range of motion without tenderness, swelling, increased warmth or erythema. Shoulders:? Right:? Moderate pain with abduction at about 80 degrees or with any attempted rotation.? There is mild anterior tenderness without swelling.? There may be some abductor weakness but no adenopathy.? Left:?? Mild pain with abduction 150 degrees or with more than 20 degrees of internal or external rotation.? There is mild anterior tenderness without adenopathy, abductor weakness or swelling.? Ankles:.? Normal pain-free range of motion without tenderness, swelling, increased warmth or erythema. Feet:? Normal pain-free range of motion without tenderness, swelling, increased warmth or erythema. Tender points: Mild tenderness to digital palpation at the occiput, trapezius, second rib, lateral epicondyle, knees, greater trochanter and gluteal area bilaterally. Results Reviewed Results Reviewed: Laboratory Tests 12/07/22 12:02 Eos % (Auto) 5.1 H ESR 49 H Chloride 109 H C-Reactive Protein 0.37 Hepatitis A IgM Ab Nonreactive Hep Bs Antigen Negative Hep Bs Antibody REACTIVE Hep B Core Total Ab Nonreactive Hepatitis C Ab (EIA) Nonreactive Laboratory Tests 12/07/22 12:02 WBC 6.0 RBC 4.26 Hgb 12.5 Hct 39.1 AST 21 ALT 13 Albumin 3.9 Assessment & Plan Assessment & Plan (1) Seronegative rheumatoid arthritis of multiple sites: Comment: Onset~ 2011?. RAMONA pos at [facility] 1:160 - 06/18 RF,CCP Ab negative.anti DNA, Scl 70,ANGEL SS-A, SS-B all negative Erosive and DJD changes in MCP joints(2016) Hydroxychloroquine started Feb 2015. Methotrexate added 2015. 06/22: sulfasalazine added Hydroxychloroquine stopped 08/21 - retinal edema Patient reported eye exam 09/18, 04/22, 03 January 2022: Methotrexate held in preparation for shoulder surgery. Not restarted so far. Sulfasalazine continued. 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 Today we demonstrated the use of Humira. Patient continues with swollen and tender joints clearly not improved with P rednisone. I had considered increasing the MTX, but she has had liver irritation on higher doses. She continues with Elevated ESR. Given the multiple joint pain and swelling as outline on PE, elevated sed rate on last labs, and no relief with prednisone, I will start her on HUMIRA with the goal to reduce joint pain and swelling. She will continue MTX and Sulfasalazine and MTX from 3 pills. We will consider to taper off one of these if HUMIRA is effective. #Client Service Consultant Use of Immunosuppressive drugs - -TB Labs needed; Hepatitis OK to start - Discussed side effects of MTX to include but not limited to fatigue, nausea, hair loss, elevated liver enzymes, lung fibrosis. We also discussed the side effects of HUMIRA and will monitor CBC. Patient knows to stop medication if she has a fever or infection. - Continue Folic Acid 1mg -Discussed with patient that Folic Acid can improve or mitigate some of the side effects of MTX Follow-up in 3 months is recommended. I spent 20 minutes reviewing chart, medications, teaching patient and documenting. Coding Level of Care Code Est Pt Level 3 (53322) Diagnoses Seronegative rheumatoid arthritis of multiple sites M06.09 Long-term use of immunosuppressant medication Z79.899
[2023-09-14 11:23] VITALS: BP 104/70; PULSE 71; O2SAT 94; BMI 26.7
== END 2023-09-14 11:50 | disposition home or self-care (01) ==
PROVIDERS: PCP Family Medicine; Visit Provider Nurse Practitioner Family
DX: M06.09 Rheumatoid arthritis without rheumatoid factor, multiple sites (principal); Z79.899 Other long term (current) drug therapy
CPT/HCPCS: 99213

== ENCOUNTER → 2023-09-14 11:19 | Outpatient (BNVA) | payer OTHER, SELFPAY | PROVIDERS: PCP Family Medicine; Visit Provider Nurse Practitioner Family | DX: M06.09 Rheumatoid arthritis without rheumatoid factor, multiple sites (principal); Z79.899 Other long term (current) drug therapy | CPT/HCPCS: 99212 ==

== ENCOUNTER 2023-11-02 08:24 | Outpatient (REF) | payer OTHER, SELFPAY ==
[2023-11-02 10:21] LABS: MANUAL DIFF FLAG NO
[2023-11-02 10:31] LABS: Basophils Percent Auto 0.8 % (0-2); Eosinophils Absolute Auto 0.2 X10*3/uL (0.0-0.4); Eosinophils Percent Auto 3.6 % (0-4); Hematocrit 39.7 % (37.0-47.0); Imm Gran Abs Auto 0.02 X10*3/uL (0.00-0.03); Imm Gran Pct Auto 0.4 % (0.0-0.4); Lymphocytes Percent Auto 42.6 % (20-40); Mean Corpuscular HGB Conc 32.7 g/dl (31.0-35.0); Mean Corpuscular Hemoglobin 29.9 pg (27.0-33.0); Mean Corpuscular Volume 91.3 fL (80.0-98.0); Monocytes Absolute Auto 0.5 X10*3/uL (0.1-1.2); Monocytes Percent Auto 9.6 % (2-11); Neutrophils Absolute Auto 2.1 x10*3/uL (2.0-8.3); Platelet Count 210 X10*3/uL (160-400); Red Blood Count 4.35 X10*6/uL (4.20-5.50); Red Cell Distribution Width 13.4 % (11.0-16.0); White Blood Count 4.8 X10*3/uL (4.8-10.8)
[2023-11-02 10:57] LABS: Alanine Aminotransferase 15 U/L (0-31); Alkaline Phosphatase 94 U/L (39-117); Anion Gap 13 (12-20); Aspartate Amino Transferase 23 U/L (5-31); Bilirubin Total 0.4 mg/dL (0.0-1.0); Blood Urea Nitrogen 16 mg/dL (9-16); C Reactive Protein 0.37 mg/dL (< or = 0.50); Calcium 9.8 mg/dL (8.4-10.2); Carbon Dioxide 27 mmol/L (22-29); Chloride 108 mmol/L (96-108); Estimated Glomerular Filt Rate > 60; Glucose Random 107 mg/dL (60-115); Potassium 4.1 mmol/L (3.3-5.1); Sodium 144 mmol/L (135-145); Total Protein 7.6 g/dL (6.5-8.0)
[2023-11-02 11:05] LABS: Uric Acid 6.9 mg/dL (2.4-5.7)
[2023-11-02 11:25] LABS: Erythrocyte Sedimentation Rate 44 MM/HR (0-20)
[2023-11-06 13:13] LABS: VITAMIN D (1,25 OH) D3 53 pg/mL; Vit D (1,25-Dihydroxy) Total 53 pg/mL (18-72); Vitamin D (1,25 OH) D2 <8 pg/mL
== END 2023-11-02 08:25 | disposition home or self-care (01) ==
LOC: HO.10HDL 08:24
PROVIDERS: Visit Provider Nurse Practitioner Family
DX: M06.09 Rheumatoid arthritis without rheumatoid factor, multiple sites (principal); Z79.899 Other long term (current) drug therapy
CPT/HCPCS: 36415; 80053; 82550; 82652; 84550; 85025; 85652; 86140

== ENCOUNTER 2024-01-07 19:20 | Emergency (ER) | payer OTHER, SELFPAY ==
--- NOTE | ~2024-01-07 | CT_ITS ---
EXAMINATION: CT HEAD WITHOUT CONTRAST CT CERVICAL SPINE WITHOUT CONTRAST CLINICAL INFORMATION: Fall. Pain. COMPARISON: None available. TECHNIQUE: Contiguous axial imaging was performed through the head and cervical spine without intravenous administration of contrast. Sagittal and coronal reformatted images also obtained. This CT examination was performed using dose optimization techniques as appropriate, variously including the following: *Automated exposure control *Adjustment of mA and/or kV according to patient size (this includes techniques or standardized protocols for targeted exams where dose is matched to indication/reason for exam; i.e. extremities or head) *Use of iterative reconstruction technique DLP: 979 mGy-cm FINDINGS: 6 the lateral, third and fourth ventricles are normally outlined as the cortical sulci and basal cisterns are normally outlined as well. There is no acute territorial defect, hemorrhage or midline shift. The extra-axial spaces are unremarkable. Calvarium/scalp: Intact. Maxillofacial sinuses and mastoids: There is a partially imaged likely chronic right maxillary sinus opacity. Remaining visualized maxillofacial sinuses and mastoids are clear. Cervical spine: The alignment is within normal limits. There is mild multilevel cervical spine disc degenerative change with minimal loss of disc space and mild posterior osteophyte formation associated with mild diffuse facet osteoarthritic hypertrophic change without significant spinal canal or neuroforaminal narrowing. The bony structures are mildly osteopenic. No fracture is seen. The soft tissues are unremarkable. CT/CT cervical spine wo IV con IMPRESSION: 1. No acute intracranial process seen. 2. Partially imaged likely chronic right maxillary sinus disease. 3. No acute cervical fracture or malalignment. Mild multilevel cervical spondylosis.
--- NOTE | ~2024-01-07 | CT_ITS ---
EXAMINATION: CT HEAD WITHOUT CONTRAST CT CERVICAL SPINE WITHOUT CONTRAST CLINICAL INFORMATION: Fall. Pain. COMPARISON: None available. TECHNIQUE: Contiguous axial imaging was performed through the head and cervical spine without intravenous administration of contrast. Sagittal and coronal reformatted images also obtained. This CT examination was performed using dose optimization techniques as appropriate, variously including the following: *Automated exposure control *Adjustment of mA and/or kV according to patient size (this includes techniques or standardized protocols for targeted exams where dose is matched to indication/reason for exam; i.e. extremities or head) *Use of iterative reconstruction technique DLP: 979 mGy-cm FINDINGS: 6 the lateral, third and fourth ventricles are normally outlined as the cortical sulci and basal cisterns are normally outlined as well. There is no acute territorial defect, hemorrhage or midline shift. The extra-axial spaces are unremarkable. Calvarium/scalp: Intact. Maxillofacial sinuses and mastoids: There is a partially imaged likely chronic right maxillary sinus opacity. Remaining visualized maxillofacial sinuses and mastoids are clear. Cervical spine: The alignment is within normal limits. There is mild multilevel cervical spine disc degenerative change with minimal loss of disc space and mild posterior osteophyte formation associated with mild diffuse facet osteoarthritic hypertrophic change without significant spinal canal or neuroforaminal narrowing. The bony structures are mildly osteopenic. No fracture is seen. The soft tissues are unremarkable. CT/CT head/brain wo IV con IMPRESSION: 1. No acute intracranial process seen. 2. Partially imaged likely chronic right maxillary sinus disease. 3. No acute cervical fracture or malalignment. Mild multilevel cervical spondylosis.
[2024-01-07 19:28] VITALS: BP 162/94; BMI 25.9
[2024-01-07 19:32] VITALS: BP 193/73; PULSE 93; RESP 16; TEMP 36.9; O2SAT 97
[2024-01-07 19:37] VITALS: BP 188/72; PULSE 90
--- NOTE | 2024-01-07 19:39 | PC.NURSE ---
provider aware of blood pressure
--- NOTE | 2024-01-07 19:45 | ED_ITS ---
HPI - Fall General Chief Complaint: Fall Stated Complaint: fall from chair, head strike, no LOC Time Seen by Provider: 01/07/24 19:29 Source: patient and EMS Mode of arrival: EMS Limitations: language barrier (Swiss-speaking dietitian chief utilized) History of Present Illness HPI Narrative: Patient is a 73-year-old female who presents emergency department for evaluation after a mechanical fall. 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 No loss of consciousness. She denies use of anticoagulants or known coagulation disorders. She reports a diffuse headache at this time. Denies any neck pain. The numbness tingling to the extremities or weakness. Related Data Home Medications ?Medication ?Instructions ?Recorded ?Confirmed cholecalciferol (vitamin D3) 50 50 mcg PO DAILY 06/01/20 05/09/23 mcg (2,000 unit) tablet duloxetine 60 mg capsule,delayed 60 mg PO BID 06/01/20 05/09/23 release ezetimibe 10 mg tablet 10 mg PO DAILY 06/01/20 05/09/23 fenofibrate 160 mg tablet 160 mg PO DAILY 06/01/20 05/09/23 fexofenadine 180 mg tablet 180 mg PO DAILY 06/01/20 05/09/23 fluticasone 500 mcg-salmeterol 50 1 inh inhalation BID 06/01/20 05/09/23 mcg/dose blistr powdr for inhalation metformin 500 mg tablet,extended 500 mg PO BID 06/01/20 05/09/23 release 24 hr montelukast 10 mg tablet 10 mg PO DAILY 06/01/20 05/09/23 rosuvastatin 40 mg tablet 40 mg PO DAILY 06/01/20 05/09/23 clopidogrel 75 mg tablet 75 mg PO DAILY 11/05/20 05/09/23 albuterol sulfate 90 mcg/actuation 2 puff inhalation Q4-6H PRN 01/10/22 05/09/23 aerosol inhaler (Ventolin HFA) Wheezing buspirone 10 mg tablet 1 tab PO BID 01/10/22 05/09/23 calcium carbonate 600 mg-vitamin 1 tab PO BID 01/10/22 05/09/23 D3 10 mcg (400 unit) tablet ipratropium 0.5 mg-albuterol 3 mg ml inhalation 01/10/22 05/09/23 (2.5 mg base)/3 mL nebulization soln tramadol 50 mg tablet 1 tab PO BID PRN Pain 01/10/22 05/09/23 evolocumab 140 mg/mL subcutaneous 1 ea subcut Q14D 01/24/22 05/09/23 pen injector (Hortensia Vera) midodrine 2.5 mg tablet 1 tab PO BID 01/24/22 05/09/23 quetiapine 100 mg tablet 1 tab PO BEDTIME 01/24/22 05/09/23 acetaminophen 650 mg 650 mg PO TID 03/02/23 05/09/23 tablet,extended release aspirin 81 mg tablet,delayed 81 mg PO DAILY 03/02/23 05/09/23 release diclofenac sodium 1 % topical gel 1 ea topical QID 03/02/23 05/09/23 gabapentin 300 mg capsule 300 mg PO DAILY 03/02/23 05/09/23 lidocaine 5 % topical patch 1 patch topical DAILY 03/02/23 05/09/23 sodium chloride 0.65 % nasal spray 1 - 2 spray intranasal Q2-3H PRN 03/02/23 05/09/23 aerosol (Deep Sea Nasal) congestion umeclidinium 62.5 mcg/actuation 1 inh inhalation DAILY 03/02/23 05/09/23 blister powder for inhalation (Incruse Ellipta) Previous Rx's ?Medication ?Instructions ?Recorded docusate sodium 100 mg capsule 100 mg PO BID 14 days #28 caps 01/26/22 folic acid 1 mg tablet 1 mg PO DAILY #90 tabs 12/08/22 adalimumab 40 mg/0.4 mL 40 mg (0.4 mL) subcut Q2W #2 ea 10/16/23 subcutaneous pen kit (Humira(CF) Pen) methotrexate sodium 2.5 mg tablet 7.5 mg (3 x 2.5 mg) PO QWEEK #12 01/01/24 tabs sulfasalazine 500 mg tablet 1,000 mg (2 x 500 mg) PO BID #120 01/01/24 tabs Allergies Allergy/AdvReac Type Severity Reaction Status Date / Time lobster Allergy Nausea and Uncoded 01/07/24 19:32 Vomiting Review of Systems Review of Systems: Yes all other systems are reviewed and are negative PMFSH Past Medical History Attestation statement: The following information was validated with the patient. Source: old records reviewed Medical History Rheumatoid arthritis Osteoarthritis (arthritis due to wear and tear of joints) Chronic venous insufficiency Subclavian artery stenosis Carotid arterial disease AAA (abdominal aortic aneurysm) Diabetes Elevated cholesterol COPD (chronic obstructive pulmonary disease) Asthma PVD (peripheral vascular disease) CAD (coronary artery disease) HTN (hypertension) Surgical History History of arthroplasty of right shoulder Hx of removal of cyst Hx of endoscopy History of colonoscopy Family History Family History Father No problems noted. Mother Family history of high blood pressure Hx of type 1 diabetes mellitus Social History Social History Are you a primary care professional to a significant other at home: No Do you presently have visiting nurse or other home services: Yes (PAPER MACHINE BACKTENDER - daily) Alcohol intake: never Patient Tobacco Use Status: Former Tobacco user Tobacco use type: Cigarette Smoked in Last 30 Days: No Advance Directives: No Advance Directives Information Provided: No Do you have a plan to hurt others: No Plan service: No Current occupational status: disabled Current occupation: left hand Physical Exam Vital Signs: Vital Signs: Last Vital Signs Temp 98.4 F 01/08/24 00:51 Pulse 82 01/08/24 00:51 Resp 16 01/08/24 00:51 BP 159/55 H 01/08/24 00:51 Pulse Ox 96 01/08/24 00:51 O2 Del Method Room Air 01/08/24 00:51 BMI result Body Mass Index 25.9 Appearance: Alert.?Oriented to person, place and time. No acute distress.?Normal affect. Head: Normocephalic Eyes: Pupils equal, round and reactive to light. EOMI. Conjunctiva and sclera normal? No Cruz sign noted. No raccoon eyes noted ENT: No septal hematoma, nares patent bilaterally. External auditory canal normal tympanic membrane pearly frazier and intact bilaterally. Dentition normal, no fractured teeth. No lesions or lacerations of oropharynx. Uvula midline. Moist mucous membranes. Neck: Normal inspection.? Neck supple.??No palpable tenderness, step-off, deformities. CVS: Heart sounds normal. Normal heart rate and rhythm.? Pulses normal.?? Respiratory: No respiratory distress.? Lung sounds clear to auscultation bilaterally?? Abdomen: Soft and non-tender. Normoactive bowel sounds. ?? Skin: Skin warm and dry.? Normal skin color.? Normal skin turgor.?? Extremities: No lower extremity edema.? Neuro: Moves all extremities spontaneously. Sensation intact bilaterally. CN II- XII intact. No focal neuro deficits. Medications Administered Discontinued Medications Generic Name Dose Route Start Last Admin Trade Name Freq PRN Reason Stop Dose Admin Acetaminophen 975 mg 01/07/24 19:51 01/07/24 20:00 Acetaminophen 325 Mg Tablet PO 01/07/24 19:52 975 mg ONCE ONE Administration Medical Decision Making Medical Decision Making MDM Narrative: Patient is a 73-year-old female with past medical history of rheumatoid arthritis, fibromyalgia, PVD, hypertension, hypercholesterolemia, diabetes, COPD, asthma, AAA who presents emergency department for evaluation after a mechanical fall with head injury. On examination appears overall well, no focal neurological deficits on examination, NIH stroke score of 0. Hard cervical spine collar is in place. A CT of the head and cervical spine was obtained and is without acute intracranial pathology, no evidence of ICH, SDH, no evidence of fracture subluxation. Headache had improved with acetaminophen. Stable for discharge home, strict return precautions were discussed, outpatient follow-up with primary care provider. All questions answered. Differential Diagnosis Differential Diagnoses: The differential diagnosis associated with the presentation includes (See narrative above) Admission/Observation Consideration of admission/observation: Escalation of care including admission/observation considered (See narrative above) Independent Interpretation I performed an independent interpretation of an: CT Scan (No ICH) Radiology Impression Discussion of test interpretation with radiology: I have reviewed the radiologist's reading. Radiologist Impression: CT/CT head/brain wo IV con IMPRESSION: 1. No acute intracranial process seen. 2. Partially imaged likely chronic right maxillary sinus disease. 3. No acute cervical fracture or malalignment. Mild multilevel cervical spondylosis. Independent Historian Clinical information obtained from an independent historian. History obtained from or confirmed by: Other (PAPER MACHINE BACKTENDER) External Record Review External record reviewed: Outpatient record Prescription Management I considered prescription management with: Pain Medication Discharge Plan Discharge Clinical Impression: Acute head injury without loss of consciousness Patient Disposition: Home, Self-Care Instructions: Head Injury (ED) Additional Instructions: You can take Tylenol 500 mg, 2 tablets (1,000mg) every 4-6 hours as needed for pain, but not to exceed 3 doses daily (3,000mg). Return to emergency department any new or worsening symptoms or concerns. ? Prescriptions: No Action folic acid 1 mg tablet 1 mg PO DAILY Qty: 90 2RF Humira(CF) Pen 40 mg/0.4 mL pen injector kit 40 mg subcut Q2W Qty: 2 2RF sulfasalazine 500 mg tablet 1,000 mg PO BID Qty: 120 2RF methotrexate sodium 2.5 mg tablet 7.5 mg PO QWEEK Qty: 12 1RF clopidogrel 75 mg tablet 75 mg PO DAILY ipratropium-albuterol 0.5 mg-3 mg(2.5 mg base)/3 mL solution for nebulization INHALATION tramadol 50 mg tablet 1 tab PO BID PRN (Reason: Pain) buspirone 10 mg tablet 1 tab PO BID albuterol sulfate [Ventolin HFA] 90 mcg/actuation HFA aerosol inhaler 2 puff inhalation Q4-6H PRN (Reason: Wheezing) calcium carbonate-vitamin D3 600 mg-10 mcg (400 unit) tablet 1 tab PO BID quetiapine 100 mg tablet 1 tab PO BEDTIME midodrine 2.5 mg tablet 1 tab PO BID Repatha SureClick 140 mg/mL pen injector 1 ea subcut Q14D docusate sodium 100 mg Capsule 100 mg PO BID 14 Days Qty: 28 0RF cholecalciferol (vitamin D3) 50 mcg (2,000 unit) tablet 50 mcg PO DAILY fenofibrate 160 mg tablet 160 mg PO DAILY duloxetine 60 mg capsule,delayed release(DR/EC) 60 mg PO BID rosuvastatin 40 mg tablet 40 mg PO DAILY metformin 500 mg tablet extended release 24 hr 500 mg PO BID ezetimibe 10 mg tablet 10 mg PO DAILY montelukast 10 mg tablet 10 mg PO DAILY fluticasone propion-salmeterol 500-50 mcg/dose blister with device 1 inh inhalation BID fexofenadine 180 mg tablet 180 mg PO DAILY aspirin 81 mg tablet,delayed release (DR/EC) 81 mg PO DAILY Deep Sea Nasal 0.65 % aerosol,spray 1 - 2 spray intranasal Q2-3H PRN (Reason: congestion) acetaminophen 650 mg tablet extended release 650 mg PO TID Incruse Ellipta 62.5 mcg/actuation blister with device 1 inh inhalation DAILY lidocaine 5 % adhesive patch,medicated 1 patch topical DAILY gabapentin 300 mg capsule 300 mg PO DAILY diclofenac sodium 1 % gel 1 ea topical QID Referrals: Teresita Alexander [Primary Care Provider] - Print Language: Swiss
[2024-01-07 19:59] VITALS: BP 151/82; PULSE 88; O2SAT 99
[2024-01-07] MEDS: Acetaminophen 325 MG TABLET 975 MG PO (20:00)
--- NOTE | 2024-01-07 21:44 | PC.NURSE ---
periwick in place
[2024-01-07 22:20] VITALS: BP 159/80; PULSE 82; RESP 17; TEMP 37.1; O2SAT 95
[2024-01-08 00:51] VITALS: BP 159/55; PULSE 82; RESP 16; TEMP 36.9; O2SAT 96
[2024-01-08 01:24] VITALS: BP 159/55; PULSE 82; RESP 16; TEMP 36.9; O2SAT 96
== END 2024-01-08 01:25 | disposition home or self-care (01) ==
PROVIDERS: Emergency Provider Emergency Medicine Emergency Medical Services; PCP Internal Medicine
DX: S09.90XA Unspecified injury of head, initial encounter (principal); M54.2 Cervicalgia; R51.9 Headache, unspecified; I25.10 Atherosclerotic heart disease of native coronary artery without angina pectoris; W07.XXXA Fall from chair, initial encounter; Y93.89 Activity, other specified; Y92.9 Unspecified place or not applicable; Y99.8 Other external cause status; Z79.899 Other long term (current) drug therapy; Z87.891 Personal history of nicotine dependence
CPT/HCPCS: 70450; 72125; 99284

== ENCOUNTER 2024-02-13 10:52 | Outpatient (REF) | payer OTHER, SELFPAY ==
--- NOTE | ~2024-02-13 | MM_ITS ---
EXAMINATION: BONE DENSITOMETRY CLINICAL INDICATION: Osteoporosis. COMPARISON: Previous BD dated 10/21/2020 and baseline BD dated 04/08/2010. TECHNIQUE: Using a [employer] DXA System (software version: 13.1) manufactured by [employer], dual-energy x-ray absorptiometry was performed of the lumbar spine and left hip. The images are of good technical quality. Summary results are attached. FINDINGS: LEFT FEMUR, NECK: Current: BMD 0.695 g/cm2, Z-score -0.8, T-score -2.5, osteoporosis. Prior: BMD 0.757 g/cm2. Baseline: BMD 0.619 g/cm2. LEFT FEMUR, TOTAL: Current: BMD 0.722 g/cm2, Z-score -0.8, T-score -2.3, osteopenia, 3.7% decrease from previous, 10.1% increase from baseline (<5% change is not significant). Prior: BMD 0.750 g/cm2. Baseline: BMD 0.656 g/cm2. AP SPINE L1-L4: Current: BMD 0.843 g/cm2, Z-score -1.4, T-score -2.8, osteoporosis, 2.9% increase from previous, 3.7% decrease from baseline (<5% change is not significant). Prior: BMD 0.819 g/cm2. Baseline: BMD 0.813 g/cm2. IDENTIFIED RISK FACTORS: Menopause, rheumatoid arthritis. HISTORY OF FRACTURE: None listed. MEDICATIONS: Calcium supplements or multivitamin, vitamin D. MM/XR DEXA axial skeleton IMPRESSION: 1. DIAGNOSIS: Osteoporosis based on the lowest T-score value of -2.8 in the lumbar spine applying World Health Organization criteria. 2. 10-YEAR FRACTURE RISK PREDICTION, FRAX: According to the guidelines, FRAX calculation should only be performed on patients in the osteopenia bone density category. Therefore, FRAX was not performed on this patient. 3. Treatment Recommendations: NOF guidelines recommend consideration for treatment in postmenopausal women and men age 50 and older presenting with the following: -A hip or vertebral (clinical or morphometric) fracture. -T-score less than or equal to -2.5 at the femoral neck or spine after appropriate evaluation to exclude secondary causes. -Low bone mass at the hip or spine and a 10-year fracture probability by FRAX of greater than or equal to 3% for hip fracture or greater than or equal to 20% for major osteoporotic fracture based on the [place] adapted WHO algorithm. 4. Other Recommendations: All treatment decisions require clinical judgment and consideration of individual patient factors, including patient preferences, comorbidities, previous drug use, risk factors not captured in the FRAX model (e.g. frailty, falls, vitamin D deficiency, increased bone turnover, interval significant decline in bone density) and possible under or overestimation of fracture risk by FRAX. Additional medical evaluation for secondary cause of low bone mineral density may be appropriate. FUTURE SCAN RECOMMENDATION: People with diagnosed cases of osteoporosis or at high risk for fracture should have regular bone mineral density tests. For patients eligible for Medicare, routine testing is allowed once every 2 years. The testing frequency can be increased to one year for patients who have rapidly progressing disease, those who are receiving or discontinuing medical therapy to restore bone mass, or have additional risk factors. Electronically signed by: Samuel Linda MD 02/19/2024 11:12 AM EDT
== END 2024-02-13 10:53 | disposition home or self-care (01) ==
LOC: HO.MAMMO 10:52
PROVIDERS: PCP Family Medicine; Visit Provider Family Medicine
DX: M81.0 Age-related osteoporosis without current pathological fracture (principal)
CPT/HCPCS: 77080

== ENCOUNTER 2024-03-21 14:38 | Outpatient (AMB) | payer OTHER, SELFPAY ==
--- NOTE | 2024-03-21 14:42 | A.OFFVIS_ITS ---
Vital Signs 03/21/24 14:43 Height 5 ft 4 in Weight 148 lb 5.938 oz BMI 25.5 BP 152/60 H Blood Pressure Location Lt brachial Position Sitting Pulse 60 Pulse Source Pulse Oximeter Pulse Oximetry (%) 96 Oxygen Delivery Method Room Air Intake Visit Reasons: RA Intake Note: Patient presents today for follow up on RA, she was last seen in the office by Alena Bell on 09/14/2023. Accompanied by: [employer] Allergies lobster Allergy (Uncoded 03/21/24 14:45) Nausea and Vomiting Medication List - Last Reconciled 03/21/24 by Yolanda Butt MD abatacept 125 mg subcut QWEEK 90 days acetaminophen ER 650 mg PO TID albuterol sulfate 90 mcg/actuation (Ventolin HFA) 2 puffs inhalation Q4-6H PRN aspirin 81 mg PO DAILY buspirone 1 tab PO BID calcium carbonate-vitamin D3 600 mg-10 mcg (400 unit) 1 tab PO BID cholecalciferol (vitamin D3) 50 mcg PO DAILY clopidogrel 75 mg PO DAILY diclofenac sodium 1% 1 ea topical QID docusate sodium 100 mg PO BID 14 days duloxetine 60 mg PO BID evolocumab (Repatha SureClick) 1 ea subcut Q14D evolocumab (Repatha SureClick) 140 mg subcut Q2W ezetimibe 10 mg PO DAILY fenofibrate 160 mg PO DAILY fexofenadine 180 mg PO DAILY fluticasone propion-salmeterol 500-50 mcg/dose 1 inh inhalation BID folic acid 1 mg PO DAILY gabapentin 300 mg PO DAILY ipratropium-albuterol 0.5 mg-3 mg(2.5 mg base)/3 mL mL inhalation lidocaine 5% 1 patch topical DAILY metformin ER 500 mg PO BID methotrexate sodium 7.5 mg (3 x 2.5 mg) PO QWEEK 90 days methylprednisolone (Medrol) 4 mg PO DAILY 6 weeks midodrine 1 tab PO BID montelukast 10 mg PO DAILY quetiapine 1 tab PO BEDTIME rosuvastatin 40 mg PO DAILY sodium chloride 0.65% (Deep Sea Nasal) 1 - 2 sprays intranasal Q2-3H PRN tramadol 1 tab PO BID PRN umeclidinium 62.5 mcg/actuation (Incruse Ellipta) 1 inh inhalation DAILY HPI Comments Details: Patient is a 73-year-old female with hyperlipidemia, diabetes who presents for evaluation of her seronegative erosive rheumatoid arthritis. Interval History: Last seen 09/14/2023 with Alena Bell. At that time she was started on Humira for RA disease not at control. Patient states that she has not had any improvement in her pain while on Humira. Rheumatologic History: Onset~ 2011?. 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 Methotrexate added 2015. 06/22: sulfasalazine added Hydroxychloroquine stopped 08/21 - retinal edema Patient reported eye exam 09/18, 04/22, 03 January 2022: Methotrexate held in preparation for shoulder surgery. Not restarted so far. Sulfasalazine continued. 2022 methotrexate and sulfasalazine restarted. However both ineffective Humira added 10/2023. Stopped 03/2024 ineffective. Sulfasalazine also stopped Current Rheumatology Medication(s): Humiria 40mg SC every other week Sulfasalazine 1500mg bid Methotrexate 3 tablets weekly folic acid 1 mg daily [facility] Medical History Rheumatoid arthritis Osteoarthritis (arthritis due to wear and tear of joints) Chronic venous insufficiency Subclavian artery stenosis Carotid arterial disease AAA (abdominal aortic aneurysm) Diabetes Elevated cholesterol COPD (chronic obstructive pulmonary disease) Asthma PVD (peripheral vascular disease) CAD (coronary artery disease) HTN (hypertension) Surgical History History of arthroplasty of right shoulder Hx of removal of cyst Hx of endoscopy History of colonoscopy Family History Father No problems noted. Mother Family history of high blood pressure Hx of type 1 diabetes mellitus Social History Are you a primary healthcare economics consultant to a significant other at home: No Do you presently have visiting nurse or other home services: Yes ([employer] - daily) Alcohol intake: never Patient Tobacco Use Status: Former Tobacco user Tobacco use type: Cigarette service: No Current occupational status: disabled Current occupation: left hand Review of Systems Const Details: Review of Systems Constitutional: Denies fever, chills, weight loss ENT: Denies vision changes, eye pain or eye redness, dental caries, dry mouth GI: Denies nausea, vomiting, diarrhea, abdominal pain, change in BM Pulm: Denies SOB, REID, hemoptysis, wheezing Cards: Denies chest pain, palpitations Skin: Denies Raynaud's, rash, nail changes, photosensitivity, DIGITAL STRATEGY MANAGER: Denies headaches, weakness, paresthesias, recurrent falls MSK: as per HPI All other systems reviewed and are unremarkable except noted above Physical Exam Vital Signs: Last Vital Signs Pulse 60 03/21/24 14:43 BP 152/60 H 03/21/24 14:43 Pulse Ox 96 03/21/24 14:43 Oxygen Delivery Method Room Air 03/21/24 14:43 BMI result Body Mass Index 25.5 Physical Examination Patient well appearing and in no apparent painful distress Constitutional Mucous membranes pink and moist patient alert and cooperative HEENT Conjunctiva and sclera clear. ?Pupils equal round and reactive to light. ?No lymphadenopathy. ?Normal dentition. Respiratory System Normal respiratory effort and able to speak in complete sentences. ?Clear to auscultation bilaterally. ?No crackles, rales, rhonchi, wheezes heard. Cardiac System Regular rate and rhythm. ? MSK Hands: Able to make a fist. Has synovial hypertrophy involving the MCPs throughout. First CMC tenderness to palpation. PIP swelling and tenderness to palpation. Wrists: Normal pain-free range of motion without tenderness, swelling, increased warmth or erythema. Elbows: Elbow joint without swelling however there is swelling and tenderness to palpation of the medial epicondyle. Shoulders: Full range of motion without pain. No tenderness, weakness, swelling, increased warmth or erythema. Knees:.???Full range of motion of knees. Ankles:.??Normal pain-free range of motion without tenderness, swelling, increased warmth or erythema. Feet:.??Normal pain-free range of motion without tenderness, swelling, increased warmth or erythema. Results Reviewed Results Reviewed: Laboratory Tests 11/02/23 08:26 WBC 4.8 RBC 4.35 Hgb 13.0 Plt Count 210 ESR 44 H Sodium 144 Potassium 4.1 Chloride 108 Carbon Dioxide 27 BUN 16 Creatinine 0.77 Estimated GFR > 60 C-Reactive Protein 0.37 Assessment & Plan Assessment & Plan (1) Seronegative rheumatoid arthritis of multiple sites: Comment: Onset~ 2011?. RAMONA pos at [facility] 1:160 - 06/18 RF,CCP Ab negative.anti DNA, Scl 70,ANGEL SS-A, SS-B all negative Erosive and DJD changes in MCP joints(2016) Hydroxychloroquine started Feb 2015. Methotrexate added 2015. 06/22: sulfasalazine added Hydroxychloroquine stopped 08/21 - retinal edema Patient reported eye exam 09/18, 04/22, 03 January 2022: Methotrexate held in preparation for shoulder surgery. Not restarted so far. Sulfasalazine continued. 2022 methotrexate and sulfasalazine restarted. However both ineffective Humira added 10/2023. Stopped 03/2024 ineffective. Sulfasalazine also stopped Code(s): M06.09 - Rheumatoid arthritis without rheumatoid factor, multiple sites Category: Medical Plan: # Seronegative erosive rheumatoid arthritis Patient currently not in remission. Still with hand swelling bilaterally tenderness to palpation of the PIPs DIPs and MCPs. Also with bilateral medial epicondylitis. We will stop sulfasalazine and Humira today. Start Orencia (abatacept) 125 mg subQ every week Medrol taper given for 6 weeks We will see again in 3-4 months Plan I spent 30 minutes reviewing the record and labs, seeing the patient, discussing the treatment plan and documenting in the medical record ? For next visit: * Review Medrol efficacy * Review abatacept efficacy Orders: Orders Erythrocyte Sedimentation Rate 4 Months M06.9 - Rheumatoid arthritis, unspecified Complete Blood Count Auto Diff 4 Months M06.9 - Rheumatoid arthritis, unspecified Erythrocyte Sedimentation Rate Today M06.9 - Rheumatoid arthritis, unspecified Complete Blood Count Auto Diff Today M06.9 - Rheumatoid arthritis, unspecified C Reactive Protein Today M06.9 - Rheumatoid arthritis, unspecified C Reactive Protein 4 Months M06.9 - Rheumatoid arthritis, unspecified Comprehensive Met. Panel 4 Months M06.9 - Rheumatoid arthritis, unspecified Comprehensive Met. Panel Today M06.9 - Rheumatoid arthritis, unspecified Hepatitis A,B,C Profile Today M06.9 - Rheumatoid arthritis, unspecified T Spot TB Today M06.9 - Rheumatoid arthritis, unspecified Uric Acid Today M06.9 - Rheumatoid arthritis, unspecified Medications: New methylprednisolone (Medrol) Take 3 tablets daily for 2 weeks then 2 tablets daily for 2 weeks then 1 tablet daily for 2 weeks then stop 4 mg PO DAILY 6 weeks 90 tabs 0RF abatacept 125 mg subcut QWEEK 90 days 13 mL 1RF M06.09 - Rheumatoid arthritis without rheumatoid factor, multiple sites, M06.9 - Rheumatoid arthritis, unspecified Discontinued Humira(CF) Pen (adalimumab) Discontinued Reason: Doctor's Order 40 mg (0.4 mL) subcut Q2W 2 ea 2RF NS sulfasalazine Discontinued Reason: Doctor's Order 1,000 mg (2 x 500 mg) PO BID 90 days 360 tabs 0RF M06.09 - Rheumatoid arthritis without rheumatoid factor, multiple sites Coding Level of Care Code Est Pt Level 4 (24998) Diagnoses Seronegative rheumatoid arthritis of multiple sites M06.09
[2024-03-21 14:43] VITALS: BP 152/60; PULSE 60; O2SAT 96; BMI 25.5
== END 2024-03-21 15:12 | disposition home or self-care (01) ==
PROVIDERS: PCP Family Medicine; Visit Provider Student in an Organized Health Care Education/Training Program
DX: M06.09 Rheumatoid arthritis without rheumatoid factor, multiple sites (principal)
CPT/HCPCS: 99214

== ENCOUNTER → 2024-03-21 14:38 | Outpatient (BNVA) | payer OTHER, SELFPAY | PROVIDERS: PCP Family Medicine; Visit Provider Student in an Organized Health Care Education/Training Program | DX: M06.09 Rheumatoid arthritis without rheumatoid factor, multiple sites (principal) | CPT/HCPCS: 99212 ==

== ENCOUNTER 2024-03-27 13:44 | Outpatient (AMB) | payer OTHER, SELFPAY ==
[2024-03-27 13:50] VITALS: BP 120/54; PULSE 76; BMI 25.3
--- NOTE | 2024-03-27 13:50 | A.OFFVIS_ITS ---
Vital Signs 03/27/24 13:50 Height 5 ft 4 in Weight 147 lb 4.301 oz BMI 25.3 BP 120/54 L Blood Pressure Location Lt brachial Position Sitting Pulse 76 Pulse Source Pulse Oximeter Intake Visit Reasons: Osteoporosis Intake Note: New patient present today for Osteoporosis office visit. Gold Leaf Layer Required: Yes Gold Leaf Layer Language: Community Midwife Services: Gold Leaf Layer Present Gold Leaf Layer Name: Namita Information Interpreted: non-clinical & clinical Accompanied by: VALVE PIPE IRRIGATOR Allergies lobster Allergy (Uncoded 03/27/24 13:54) Nausea and Vomiting Medication List - Last Reconciled 03/27/24 by Marisela Ayon MD abatacept 125 mg subcut QWEEK 90 days acetaminophen ER 650 mg PO TID albuterol sulfate 90 mcg/actuation (Ventolin HFA) 2 puffs inhalation Q4-6H PRN aspirin 81 mg PO DAILY buspirone 1 tab PO BID calcium carbonate-vitamin D3 600 mg-10 mcg (400 unit) 1 tab PO BID cholecalciferol (vitamin D3) 50 mcg PO DAILY clopidogrel 75 mg PO DAILY diclofenac sodium 1% 1 ea topical QID docusate sodium 100 mg PO BID 14 days duloxetine 60 mg PO BID evolocumab (Repatha SureClick) 1 ea subcut Q14D evolocumab (Repatha SureClick) 140 mg subcut Q2W ezetimibe 10 mg PO DAILY fenofibrate 160 mg PO DAILY fexofenadine 180 mg PO DAILY fluticasone propion-salmeterol 500-50 mcg/dose 1 inh inhalation BID folic acid 1 mg PO DAILY gabapentin 300 mg PO DAILY ipratropium-albuterol 0.5 mg-3 mg(2.5 mg base)/3 mL mL inhalation lidocaine 5% 1 patch topical DAILY metformin ER 500 mg PO BID methotrexate sodium 7.5 mg (3 x 2.5 mg) PO QWEEK 90 days methylprednisolone (Medrol) 4 mg PO DAILY 6 weeks midodrine 1 tab PO BID montelukast 10 mg PO DAILY quetiapine 1 tab PO BEDTIME rosuvastatin 40 mg PO DAILY sodium chloride 0.65% (Deep Sea Nasal) 1 - 2 sprays intranasal Q2-3H PRN tramadol 1 tab PO BID PRN umeclidinium 62.5 mcg/actuation (Incruse Ellipta) 1 inh inhalation DAILY HPI Comments Details: 73-year-old female coming in today for initial evaluation of osteoporosis. Here today with VALVE PIPE IRRIGATOR. Most recent bone density scan done in February 2024 showed T-score of -2.8 at the lumbar spine with increase of 2.9% in her bone density compared to 2020. T- score of-2.5 at the femoral neck and T-score of -2.3 at the total hip with decrease of 3/0.7% bone density at the hip. Bone density from October 2020 showed T-score of-3 at the lumbar spine with decrease of 1.6% in bone density compared to 2013. T-score of -2 at the femoral neck and-2 in the total hip with increase of 11.6% in BMD compared to 2014. Post menopausal osteoporosis: Diagnosed in 2013 Was seeing an endo at [facility] 6-7 years ago , she endorses that she has never been on any medication for this per patient as well as patient's VALVE PIPE IRRIGATOR who has been with her for 10 years however I see a comment in the chart saying that she was on Fosamax from [id number]. This would make sense especially given she had such notable improvement at her hip of 11.6% in her bone density in 2020 compared to 2013. Fracture History: none Height loss: 5' 4 curerrenlty , no loss Back pain: none Pharmacotherapeutic hx: Unclear whether she was on Fosamax from [id number] Drug holiday if she was on Fosamax until 2020 then drug holiday from 2020 up until now March 2024 Family history: mother had osteoporosis, no parent fractures hip Estrogen use: no HRT use Pregnancies: 4 alive births Menstrual hx: menopause 5o years, menarche 11-11 years , regular periods Secondary risk factors: Steroid use: has required many short courses of prednisone for RA and asthma. last course last week for an RA flare. Has had steroid injections twice 3 years ago. Also on fluticasone Hyperthyroidism: Neg Seizure medication use: None Chemo or Radiation use: Neg Heparin Use: Neg History of eating disorder: Negative rn neurology immobilization: Negative History of kidney stones or disease: negative PI Use: has history of gastritis , used to take PPI before, no acid reflux now Chronic inflammatory lung disease: Negative Chronic inflammatory bowel disease: Negative Daily calcium intake: drinks 3 cups of milk daily, yogurt twice a day, cheese twice a day Vitamin D intake: 2000 units daily Exercise:walks sometimes no fixed schedule, not much, like groceries Smoking history:quit smoking 12 years ago Dental: Has regular dental cleaning, no issues During chart review also noticed the labs from April 2023 showed a low free T4 level of 0.64 with normal TSH of 2.37. Isolated hypothyroxinemia. Unclear significance. Similar labs from 2019. I will repeat thyroid function testing. Review of systems Constitutional: no fevers, chills or weight loss HEENT: no changes in vision Cardiac: No chest pain, discomfort or palpitations. Pulmonary: Does get winded easily GI:No abdominal pain, no nausea or vomiting, no anorexia, no blood in stool : no burning micturition, dysuria or increase in urinary frequency Neurologic: No dizziness, no weakness in extremities MSK: Has shoulder pain Physical exam General: sitting comfortably in no acute distress HEENT: normocephalic/atraumatic, , moist oral mucosa Neck: supple, symmetrical, no thyromegaly , no dorsocervical or supraclavicular fat pads Cardiac: normal heart sounds Pulm: normal breath sounds B/L, no added breath sounds Abd: not distended, no tenderness Extremities: no edema, no signs of myxedema Neuro: AAO x3, Speech: normal, no facial droop, moving all 4 extremities [facility] Medical History (Updated 03/27/24 @ 14:52 by Marisela Ayon MD) Hypothyroxinemia Rheumatoid arthritis Osteoarthritis (arthritis due to wear and tear of joints) Chronic venous insufficiency Subclavian artery stenosis Carotid arterial disease AAA (abdominal aortic aneurysm) Diabetes Elevated cholesterol COPD (chronic obstructive pulmonary disease) Asthma PVD (peripheral vascular disease) CAD (coronary artery disease) HTN (hypertension) Surgical History History of arthroplasty of right shoulder Hx of removal of cyst Hx of endoscopy History of colonoscopy Family History Father No problems noted. Mother Family history of high blood pressure Hx of type 1 diabetes mellitus Social History Are you a primary nursing care attendant to a significant other at home: No Do you presently have visiting nurse or other home services: Yes (VALVE PIPE IRRIGATOR - daily) Alcohol intake: never Patient Tobacco Use Status: Former Tobacco user Tobacco use type: Cigarette service: No Current occupational status: disabled Current occupation: left hand Physical Exam Vital Signs: Last Vital Signs Pulse 76 03/27/24 13:50 BP 120/54 L 03/27/24 13:50 BMI result Body Mass Index 25.3 Results Reviewed Results Reviewed: Laboratory Tests 02/22/23 04/05/23 11/02/23 10:56 09:36 08:26 Creatinine 0.77 Estimated GFR > 60 Calcium 9.8 Alkaline Phosphatase 94 Albumin 4.0 1,25 Dihydroxy Vit D 53 1,25 Dihydroxy Vit D2 <8 1,25 Dihydroxy Vit D3 53 TSH 1.46 2.37 Free T4 0.71 0.64 L Bone density 02/13/24 BONE DENSITOMETRY CLINICAL INDICATION: Osteoporosis. COMPARISON: Previous BD dated 10/21/2020 and baseline BD dated 04/08/2010. TECHNIQUE: Using a Razz DXA System (software version: 13.1) manufactured by [employer], dual-energy x-ray absorptiometry was performed of the lumbar spine and left hip. The images are of good technical quality. Summary results are attached. FINDINGS: LEFT FEMUR, NECK: Current: BMD 0.695 g/cm2, Z-score -0.8, T-score -2.5, osteoporosis. Prior: BMD 0.757 g/cm2. Baseline: BMD 0.619 g/cm2. LEFT FEMUR, TOTAL: Current: BMD 0.722 g/cm2, Z-score -0.8, T-score -2.3, osteopenia, 3.7% decrease from previous, 10.1% increase from baseline (<5% change is not significant). Prior: BMD 0.750 g/cm2. Baseline: BMD 0.656 g/cm2. AP SPINE L1-L4: Current: BMD 0.843 g/cm2, Z-score -1.4, T-score -2.8, osteoporosis, 2.9% increase from previous, 3.7% decrease from baseline (<5% change is not significant). Prior: BMD 0.819 g/cm2. Baseline: BMD 0.813 g/cm2. IDENTIFIED RISK FACTORS: Menopause, rheumatoid arthritis. HISTORY OF FRACTURE: None listed. MEDICATIONS: Calcium supplements or multivitamin, vitamin D. MM/XR DEXA axial skeleton IMPRESSION: 1. DIAGNOSIS: Osteoporosis based on the lowest T-score value of -2.8 in the lumbar spine applying World Health Organization criteria. 2. 10-YEAR FRACTURE RISK PREDICTION, FRAX: According to the guidelines, FRAX calculation should only be performed on patients in the osteopenia bone density category. Therefore, FRAX was not performed on this patient. BONE DENSITOMETRY 2020 CLINICAL INDICATION: Screening for osteoporosis. COMPARISON: Previous BD dated 12/25/2013 and baseline BD dated 04/08/2010. TECHNIQUE: Using a Razz DXA System (software version: 13.1) manufactured by [employer], dual-energy x-ray absorptiometry was performed of the lumbar spine and left hip. The images are of good technical quality. Summary results are attached. FINDINGS: AP SPINE L1-L4: Current: BMD 0.819 g/cm2, Z-score -1.6, T-score -3.0, osteoporosis, 1.6% increase from previous, 0.7% increase from baseline (<5% change is not significant). Prior: BMD 0.832 g/cm2. Baseline: BMD 0.813 g/cm2. LEFT FEMUR, NECK: Current: BMD 0.757 g/cm2, Z-score -0.5, T-score -2.0, osteopenia. Prior: BMD 0.646 g/cm2. Baseline: BMD 0.619 g/cm2. LEFT FEMUR, TOTAL: Current: BMD 0.750 g/cm2, Z-score -0.7, T-score -2.0, osteopenia, 11.6% increase from previous, 14.3% increase from baseline (<5% change is not significant). Prior: BMD 0.672 g/cm2. Baseline: BMD 0.656 g/cm2. IDENTIFIED RISK FACTORS: Menopause. HISTORY OF FRACTURE: None listed. MEDICATIONS: Calcium supplements or multivitamin, vitamin D. MM/XR DEXA axial skeleton IMPRESSION: 1. DIAGNOSIS: Osteoporosis based on the lowest T-score value of -3.0 in the lumbar spine applying World Health Organization criteria. 2. 10-YEAR FRACTURE RISK PREDICTION, FRAX: Major osteoporotic fracture (clinical spine, forearm, hip or shoulder) 6.9%. Hip fracture 1.4%. Assessment & Plan Assessment & Plan (1) Osteoporosis: Code(s): M81.0 - Age-related osteoporosis without current pathological fracture Category: Medical Qualifiers: Osteoporosis type: age-related Presence of current pathological fracture: without current pathological fracture Qualified Code(s): M81.0 - Age- related osteoporosis without current pathological fracture Plan: Patient with a history of osteoporosis diagnosed in , who is unclear whether she has ever been on therapy for osteoporosis versus her record which comments and non place that she was on alendronate from [id number]. This would make sense given that she had significant improvement in her bone density at the hip from 4076-4272 with an 11.6% increase in bone density at the hip. Her most recent bone density scan from February 2024 shows that she is still osteoporotic with osteoporosis at the lumbar spine with a T-score of -2.8 with a 2.9% increase in bone density of the lumbar spine compared to 202. Her lowest T-scores are around-3.4- 3.5 and L2 and L4. Plus she even has some arthritis when I reviewed the images myself likely falsely elevating her bone density at the spine. Her bone density at the hip has decreased by 3.7% compared to 202 and she is still osteoporotic with T-score of -2.5 at the femoral neck, T-score is -2.3 at the total hip. Her risk factors for osteoporosis are age, being postmenopausal, steroid use, rheumatoid arthritis, family history of osteoporosis, petite physique. I discussed conservative measures including adequate calcium intake, adequate vitamin D levels as well as the role of weightbearing exercises in general being good for bone health. She is already taking vitamin-D 2000 units daily and a good amount of dairy intake. I encouraged her to continue this. In addition to conservative management with calcium and vitamin D; I do believe she would benefit from antiresorptive therapy in terms of reducing future fracture risk. Today we discussed the options of Fosamax and Reclast. I also discussed the option of Prolia . I am going to obtain her records from [facility] to see if I can clarify whether she was on Fosamax from [id number]. If indeed she has had greater than 5 years of oral bisphosphonate therapy, about 6-7 years, I would consider Prolia for her. If she has not, Reclast might be a better option. I will obtain her records. I counseled regarding the mechanism of action, route of administration, common side effects as well as black box warnings particularly osteonecrosis of the jaw and atypical femur fracture. Prior to initiating therapy I would like her to complete work-up to get baseline bone turnover markers as well as rule out secondary causes of osteoporosis. Plan: -obtain records from [facility] -continue vitamin-D 2000 units daily -continue 3-4 servings of calcium rich foods daily -encouraged weight-bearing exercise with walking at least 15-20 minutes daily -ordered blood work and 24 hour urine tests -follow up in 6 weeks to discuss results (2) Hypothyroxinemia: Code(s): R79.89 - Other specified abnormal findings of blood chemistry Category: Medical Plan: During chart review also noticed the labs from April 2023 showed a low free T4 level of 0.64 with normal TSH of 2.37. Isolated hypothyroxinemia. Unclear significance. Sometimes this can be hereditary, other times it can be due to abnormalities and protein such as nephrotic syndrome. Her kidney function is normal. Can sometimes be seen in other endocrine disorders such as acromegaly she does not have any features of that. Can be seen in Enoree's syndrome, I am already checking a 24 hour urine cortisol level while evaluating secondary causes of osteoporosis. Similar labs from 2019. I will repeat thyroid function testing. We will check a free T4 by equilibrium dialysis. Some medications can also cause this but I do not see any antiseizure meds, heparin on her list. Plan: -repeat TFTs along with free T4 with a equilibrium dialysis Plan I spent 45 minutes in reviewing the record, seeing the patient and documenting in the medical record. Orders: Orders Albumin Level Today M81.0 - Age-related osteoporosis without current pathological fracture Alkaline Phosphatase Bone Today M81.0 - Age-related osteoporosis without current pathological fracture Magnesium Today M81.0 - Age-related osteoporosis without current pathological fracture Vitamin D 25-OH Total Today M81.0 - Age-related osteoporosis without current pathological fracture Cortisol, Free 24Hr Urine Today M81.0 - Age-related osteoporosis without current pathological fracture Immunofixation Pnl, Serum Today M81.0 - Age-related osteoporosis without current pathological fracture Thyroxine Binding Globulin Today R79.89 - Other specified abnormal findings of blood chemistry T4 Thyroxine Today R79.89 - Other specified abnormal findings of blood chemistry Calcium Today M81.0 - Age-related osteoporosis without current pathological fracture Collagen Type I C-Telopeptide Today M81.0 - Age-related osteoporosis without current pathological fracture Parathyroid Hormone Intact Today M81.0 - Age-related osteoporosis without current pathological fracture Phosphorus Today M81.0 - Age-related osteoporosis without current pathological fracture Calcium, 24 Hr Ur Today M81.0 - Age-related osteoporosis without current pathological fracture Thyroid Stimulating Hormone Today M81.0 - Age-related osteoporosis without current pathological fracture Comprehensive Met. Panel Today M81.0 - Age-related osteoporosis without current pathological fracture Protein Electrophoresis, Serum Today M81.0 - Age-related osteoporosis without current pathological fracture Creatinine, 24 Hr Group Today M81.0 - Age-related osteoporosis without current pathological fracture Thyroglobulin Today R79.89 - Other specified abnormal findings of blood chemistry FT4 by [facility]. Dialysis Today R7.89 - Other specified abnormal findings of blood chemistry Triiodothyronine T3 Total Today R79. - Other specified abnormal findings of blood chemistry Patient Instructions: do fasting blood work same day as you hand in the 24 hr urine collection 24 hr urine collection instructions You have been asked to collect your urine for 24 hours to assess for calcium excretion. You must choose a 24 hour period of time when you will be home. The morning of the first day, DISCARD the FIRST morning void and then note the time. You will collect every single void from then on for 24 hours. For example, if you wake up at 6am and urinate, flush down that void. You will then collect every drop of urine all day and all night through 6am the following day. You will urinate one last time at 6am for the collection. The jug of urine must be kept in the refrigerator until you bring it to the lab.You have been asked to collect your urine for 24 hours to assess for calcium excretion. You must choose a 24 hour period of time when you will be home. The morning of the first day, DISCARD the FIRST morning void and then note the time. You will collect every single void from then on for 24 hours. For example, if you wake up at 6am and urinate, flush down that void. You will then collect every drop of urine all day and all night through 6am the following day. You will urinate one last time at 6am for the collection. The jug of urine must be kept in the refrigerator until you bring it to the lab. Continue vitamin D 2000 units daily Walk at least 15 mins daily Take calcium in your diet as you are Realice an?lisis de milana en ayunas el mismo d?a en que entregue la muestra de orina de 24 horas. Instrucciones para la recolecci?n de orina de 24 horas. Se le la pedido que recolecte orina sirena 24 horas para evaluar la excreci?n de calcio. Debe elegir un per?odo de 24 horas en el que estar? en casa. La ma?gregory del primer d?a, DESCARTE el PRIMER vac?o de la ma?gregory y luego anote la hora. A partir de essie momento, recolectar?s todos los vac?os sirena 24 horas. Por ejemplo, si te despiertas a las 6 de la ma?rgegory y orinas, cheryle essie vac?o. Luego recolectar? cada gota de orina sirena todo el d?a y toda la noche hasta las 6 a.m. del d?a siguiente. Orinar?s por ?ltima vez a las 6 a. m. para la recolecci?n. La jarra de orina debe guardarse en el refrigerador hasta que la lleve al labo ratorio. Se le la pedido que recolecte orina sirena 24 horas para evaluar la excreci?n de calcio. Debe elegir un per?odo de 24 horas en el que estar? en casa. La ma?gregory del primer d?a, DESCARTE el PRIMER vac?o de la ma?gregory y luego anote la hora. A partir de essie momento, recolectar?s todos los vac?os sirena 24 horas. Por ejemplo, si te despiertas a las 6 de la ma?gregory y orinas, cheryle essie vac?o. Benita ego recolectar? cada gota de orina sirena todo el d?a y toda la noche hasta las 6 a.m. del d?a siguiente. Orinar?s por ?ltima vez a las 6 a. m. para la recolecci?n. El frasco de orina debe conservarse en el frigor?fico hasta walter llegada al laboratorio. Continuar con vitamina D 2000 unidades diarias. Camine al menos 15 minutos diarios. Mere calcio en tu dieta holly eres Coding Level of Care Code New Pt Level 4 (84359) Diagnoses Age-related osteoporosis without current pathological fracture M81.0 Osteoporosis type: age-related Presence of current pathological fracture: without current pathological fracture Hypothyroxinemia R79.89 Time Spent (min) 45
== END 2024-03-27 14:39 | disposition home or self-care (01) ==
PROVIDERS: PCP Family Medicine; Visit Provider Student in an Organized Health Care Education/Training Program
DX: M81.0 Age-related osteoporosis without current pathological fracture (principal); R79.89 Other specified abnormal findings of blood chemistry
CPT/HCPCS: 99204

== ENCOUNTER → 2024-03-27 13:44 | Outpatient (BNVA) | payer OTHER, SELFPAY | PROVIDERS: PCP Family Medicine; Visit Provider Student in an Organized Health Care Education/Training Program | DX: M81.0 Age-related osteoporosis without current pathological fracture (principal); R79.89 Other specified abnormal findings of blood chemistry | CPT/HCPCS: 99202 ==

== ENCOUNTER 2024-04-09 08:49 | Outpatient (REF) | payer OTHER, SELFPAY ==
[2024-04-09 09:34] LABS: MANUAL DIFF FLAG NO
[2024-04-09 09:41] LABS: Basophils Absolute Auto 0.1 X10*3/uL (0.0-0.2); Basophils Percent Auto 1.2 % (0-2); Eosinophils Absolute Auto 0.3 X10*3/uL (0.0-0.4); Eosinophils Percent Auto 6.8 % (0-4); Hematocrit 37.6 % (37.0-47.0); Hemoglobin 12.5 g/dl (12.0-16.0); Imm Gran Abs Auto 0.01 X10*3/uL (0.00-0.03); Imm Gran Pct Auto 0.2 % (0.0-0.4); Mean Corpuscular HGB Conc 33.2 g/dl (31.0-35.0); Mean Corpuscular Volume 90.2 fL (80.0-98.0); Mean Platelet Volume 10.4 fL (9.4-12.3); Monocytes Absolute Auto 0.4 X10*3/uL (0.1-1.2); Monocytes Percent Auto 8.2 % (2-11); Neutrophils Absolute Auto 2.2 x10*3/uL (2.0-8.3); Neutrophils Percent Auto 43.6 % (45-73); Platelet Count 225 X10*3/uL (160-400); Red Blood Count 4.17 X10*6/uL (4.20-5.50); Red Cell Distribution Width 13.2 % (11.0-16.0)
[2024-04-09 09:42] LABS: Hematocrit 38.4 % (37.0-47.0); Hemoglobin 12.4 g/dl (12.0-16.0); Mean Corpuscular HGB Conc 32.3 g/dl (31.0-35.0); Mean Corpuscular Hemoglobin 29.7 pg (27.0-33.0); Mean Corpuscular Volume 91.9 fL (80.0-98.0); Mean Platelet Volume 10.6 fL (9.4-12.3); Platelet Count 213 X10*3/uL (160-400); Red Blood Count 4.18 X10*6/uL (4.20-5.50); Red Cell Distribution Width 13.3 % (11.0-16.0)
[2024-04-09 09:47] LABS: Estimated Average Glucose 123 mg/dL; Hemoglobin A1C 128.1633 umol/L; Hemoglobin A1c % 5.9 % (<6.0)
[2024-04-09 10:13] LABS: Albumin Level 4.1 g/dL (3.5-5.0); Calcium 9.8 mg/dL (8.4-10.2)
[2024-04-09 10:16] LABS: Parathyroid Hormone Intact 80.8 pg/mL (8.7-77.1)
[2024-04-09 10:18] LABS: Alanine Aminotransferase 17 U/L (0-31); Albumin Level 4.1 g/dL (3.5-5.0); Alkaline Phosphatase 87 U/L (39-117); Anion Gap 13 (12-20); Aspartate Amino Transferase 27 U/L (5-31); Bilirubin Direct 0.2 mg/dL (0.0-0.5); Bilirubin Total 0.5 mg/dL (0.0-1.0); Blood Urea Nitrogen 12 mg/dL (9-16); C Reactive Protein 0.59 mg/dL (< or = 0.50); Calcium 9.5 mg/dL (8.4-10.2); Carbon Dioxide 25 mmol/L (22-29); Chloride 109 mmol/L (96-108); Cholesterol 97 mg/dL (<200); Estimated Glomerular Filt Rate > 60; Glucose Random 105 mg/dL (60-115); HDL Cholesterol 48 mg/dL (>40); LDL Cholesterol Calculated 32 mg/dL (<100); Magnesium 2.3 mg/dL (1.6-2.6); Phosphorus 3.3 mg/dL (2.7-4.5); Potassium 3.9 mmol/L (3.3-5.1); Sodium 143 mmol/L (135-145); Total Protein 7.8 g/dL (6.5-8.0); Triglycerides 88 mg/dL (<150); Uric Acid 5.6 mg/dL (2.4-5.7)
[2024-04-09 10:22] LABS: Erythrocyte Sedimentation Rate 49 MM/HR (0-20)
[2024-04-09 10:33] LABS: Free T4 (Free Thyroxine) 0.72 ng/dL (0.71-1.85); Thyroid Stimulating Hormone 1.17 uIU/mL (0.32-4.0)
[2024-04-09 10:35] LABS: T4 Thyroxine 6.1 ug/dL (4.5-12.0); Vitamin D 25-OH Total 19.8 ng/mL (>30)
[2024-04-09 10:41] LABS: HBS Num1 > 1000.00 mIU/mL (0-7.99); HBc Num1 0.15 S/CO (0.00-0.79); HBsAGNum1 0.31 S/CO (0.00-0.99); Hepatitis A Antibody IgM 0.26 Index (0-0.79); Hepatitis B Core Antibody Nonreactive (Nonreactive); Hepatitis B Surface Antigen Negative (Negative); ~HepC Num1 0.16 S/CO (0.00-0.79); ~Hepatitis A Antibody IgM Nonreactive (Nonreactive); ~Hepatitis B Surface Antibody REACTIVE (Nonreactive); ~Hepatitis C Antibody Nonreactive (Nonreactive)
[2024-04-09 11:13] LABS: Creatinine, mg/dL 73.97
[2024-04-09 11:17] LABS: Creatinine Urine 128.14 mg/dL; Microalbum/Creatinine Ratio Ur 9.3 ug/mg cr (<30)
[2024-04-09 12:53] LABS: Creatinine, 24Hr Urine 0.7 G/Day (1.0-2.0); Total Volume 24 Hour Urine 950 mL
[2024-04-10 08:23] LABS: Triiodothyronine T3 Total 113 ng/dL (76-181)
[2024-04-10 11:29] LABS: Thyroglobulin 15.4 ng/mL
[2024-04-10 12:44] LABS: Alpha Fetoprotein 4.6 ng/mL
[2024-04-10 16:37] LABS: Calcium, 24 Hr Urine 68 mg/24 h; Calcium/Creatinine Ratio 97 mg/g creat (30-275)
[2024-04-10 22:18] LABS: IgA 396 mg/dL (70-320); IgG 1371 mg/dL (600-1540); IgM 364 mg/dL (50-300)
[2024-04-11 09:43] LABS: Prot Elec - Albumin 3.9 g/dL (3.8-4.8); Prot Elec - Alpha1 0.2 g/dL (0.2-0.3); Prot Elec - Alpha2 0.8 g/dL (0.5-0.9); Prot Elec - Beta 1 0.4 g/dL (0.4-0.6); Prot Elec - Beta 2 0.5 g/dL (0.2-0.5); Prot Elec - Gamma 1.4 g/dL (0.8-1.7); Prot Elec - Total Protein 7.2 g/dL (6.1-8.1)
[2024-04-12 05:28] LABS: TS Negative Control Passed; TS Panel A 0; TS Panel B 0; TS Positive Control Passed; TSpotTB Negative (Negative)
[2024-04-12 18:59] LABS: Alkaline Phosphatase Bone 16.1 mcg/L (5.6-29.0)
[2024-04-13 12:44] LABS: Thyroxine Binding Globulin 29.1 mcg/mL (13.5-30.9)
[2024-04-14 16:22] LABS: Cortisol Free, 24 Hr Urine 4.9 mcg/24 h (4.0-50.0); Creatinine, 24 Hr Urine 0.72 g/24 h (0.50-2.15); Total Volume, 24 Hr Urine 950 mL
[2024-04-14 21:19] LABS: Collagen Type I C-Telopeptide 400 pg/mL (see note)
[2024-04-16 11:19] LABS: FT4 by Equilib. Dialysis 0.7 ng/dL (0.9-2.2)
== END 2024-04-09 08:50 | disposition home or self-care (01) ==
LOC: HO.LAB 08:49
PROVIDERS: PCP Family Medicine; Referring Provider Student in an Organized Health Care Education/Training Program; Visit Provider Student in an Organized Health Care Education/Training Program
DX: Z00.00 Encounter for general adult medical examination without abnormal findings (principal); M06.9 Rheumatoid arthritis, unspecified; E11.9 Type 2 diabetes mellitus without complications; E78.2 Mixed hyperlipidemia; K76.0 Fatty (change of) liver, not elsewhere classified; F41.1 Generalized anxiety disorder; I71.43 Infrarenal abdominal aortic aneurysm, without rupture; J44.9 Chronic obstructive pulmonary disease, unspecified; M81.0 Age-related osteoporosis without current pathological fracture; R12 Heartburn; M25.511 Pain in right shoulder; G89.29 Other chronic pain; M25.512 Pain in left shoulder; M79.644 Pain in right finger(s); M79.645 Pain in left finger(s); M25.521 Pain in right elbow; M25.522 Pain in left elbow; R94.6 Abnormal results of thyroid function studies; R79.89 Other specified abnormal findings of blood chemistry
CPT/HCPCS: 36415; 80053; 80061; 82040; 82043; 82105; 82248; 82306; 82310; 82340; 82523; 82530; 82570; 82784; 83036; 83735; 83970; 84075; 84100; 84165; 84432; 84436; 84439; 84442; 84443; 84480; 84550; 85025; 85027; 85652; 86140; 86334; 86481; 86704; 86706; 86709; 86803; 87340

== ENCOUNTER 2024-06-16 10:06 | Outpatient (REF) | payer OTHER, SELFPAY ==
--- NOTE | ~2024-06-16 | US_ITS ---
CLINICAL HISTORY: I71.43 - Infrarenal abdominal aortic aneurysm, without rupture US abdominal aorta with color Doppler Comparison: Images from 03/21/2023 were not available for comparison at the time of this interpretation. Findings: Aorta diameter proximal: 2.3 x 2.3 cm. Aorta diameter mid: 2.2 x 2.2 cm. Aorta diameter distal: 4.1 x 3.9 cm.This previously measured 4.0 x 3.8 per technologist worksheet Right common iliac artery maximum diameter: 1.0 x 1.1 cm. Left common iliac artery maximum diameter: 1.2 x 1.2 cm. Normal color Doppler. Impression: 1. Fusiform infrarenal abdominal aortic aneurysm as described. Minimal calcified atherosclerotic disease. This document has been electronically signed by: Roger Brar MD on 06/17/2024 11:23:25
== END 2024-06-16 10:07 | disposition home or self-care (01) ==
LOC: HO.HMGCX 10:06
PROVIDERS: PCP Family Medicine; Visit Provider Surgery Vascular Surgery
DX: I71.43 Infrarenal abdominal aortic aneurysm, without rupture (principal)
CPT/HCPCS: 76706

== ENCOUNTER → 2024-06-16 10:11 | Outpatient (BNV) | payer OTHER, SELFPAY | PROVIDERS: PCP Family Medicine; Visit Provider Radiology Diagnostic Radiology | DX: I71.43 Infrarenal abdominal aortic aneurysm, without rupture (principal) | CPT/HCPCS: 76706 ==

== ENCOUNTER 2024-07-07 12:38 | Outpatient (REF) | payer OTHER, SELFPAY ==
[2024-07-07 14:33] LABS: Parathyroid Hormone Intact 80.3 pg/mL (8.7-77.1)
--- OUTSIDE RECORDS SUMMARY | 2024-07-07 14:45 | XMS_ITS | Encounter Summary ---
Author Organization [employer] Address [address] [facility] 7t [place] [address] Care Team Providers Care Steel Inspector Name Role Phone Teresita Munroe DO Primary Care Provider Encounter Details Date Type Department Care Team (Latest Contact Info) Description 2019 Abstract [facility] CONVERSIONS Dental, Provider, DDS Social History [...] on filedocumented in this encounter Care Teams Steel Inspector Relationship Specialty Start Date End Date Teresita Munroe DO [address] [place] [address] PCP - General Family Medicine 07/28/14 documented as of this encounter
--- OUTSIDE RECORDS SUMMARY | 2024-07-07 14:45 | XMS_ITS | Encounter Summary ---
Author Organization [employer] Address [address] [facility] [address]t [place] [address] Care Team Providers Care Customer Training Specialist Name Role Phone Teresita Munroe DO Primary Care Provider [phone]- [phone] Reason for Visit * Reason Comments Med Refill Encounter Details Date Type Department Care Team ([facility] st Contact Info) Description 01/03/2024 Refill [facility] & PEDS [address] [place], [place] [id number] Teresita Munroe DO [address] [facility] [address] 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 complication, unspecified whether penitentiary insulin use (CMS/HCC); Osteopenia, unspecified location Social [...] 2 diabetes mellitus without complication, unspecified whether intermediate teacher insulin use (CMS/[facility]) Osteopenia, unspecified location documented in this encounter Care Teams Customer Training Specialist Relationship Specialty Start Date End Date Teresita Munroe DO [address] [place] [id number] PCP - General Family Medicine 07/28/14 documented as of this encounter
--- OUTSIDE RECORDS SUMMARY | 2024-07-07 14:45 | XMS_ITS | Encounter Summary ---
Author Organization [employer] Address [address] [facility] 7[address] [place] [address] Care Team Providers Care Melt Helper Name Role Phone Teresita Munroe DO Primary Care Provider [phone]- [phone] Reason for Visit * Reason Onset Date Comments Med Refill 05/11/2023 Encounter Details Date Type Department Care Team (Late st Contact Info) Description 05/11/2023 Refill [facility] MEDICINE [address] [place] [address] Teresita Munroe DO [address] [place] [address] Chronic pain of both shoulders (Primary Dx) Social History Tobacco Use Types Packs/Day Years Used Date Smoking Tobacco: Never Passive Smoke Exposure: Never Smokeless Tobacco: Never Alcohol Use Standard Drinks/Week Comments Never 0 (1 standard drink = 0.6 oz pur e alcohol) Housing Stability Answer Date Recorded What is your housing situation today? I have poyl rachel 03/21/[address] you [...] traMADol (Ultram) 50 MG tablet [facility] [address] [place] [address] documented in this encounter Plan of Treatment Not on file documented as of this encounter Visit Diagnoses Diagnosis Chronic pain of both shoulders- Primary documented in this encounter Care Teams Melt Helper Relationship Specialty Start Date End Date Teresita Munroe DO [address] [place] [address] PCP - General Family Medicine 07/28/14 documented as of this encounter
--- OUTSIDE RECORDS SUMMARY | 2024-07-07 14:45 | XMS_ITS | Encounter Summary ---
Author Organization [employer] Address [address] [facility] [address] [place] [address] Care Team Providers Care Ripshear Operator Name Role Phone Teresita Munroe DO Primary Care Provider [phone]- [phone] Reason for Visit * Reason Comments Med Refill Encounter Details Date Type Department Care Team ([facility] st Contact Info) Description 06/12/2024 Refill [facility] MED[facility] [address] [place] [address] Teresita Munroe DO [address] [place] [address] Chronic obstructive pulmonary disease, unspecified COPD type (CMS/HCC); 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 complication, unspecified whether long-term insulin use (CMS/[facility]); Osteopenia, unspecified location Social History Tobacco [...] Chronic obstructive pulmonary disease, unspecified COPD type (CMS/[facility]) 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 complication, unspecified whether rodent exterminator insulin use ([facility]) Osteopenia, unspecified location documented in this encounter Additional Health Concerns Assessment Noted Time PHQ-9 Depression Total Score: 5 01/22/20 24 9:55 AM EDT documented as of this encounter Care Teams Ripshear Operator Relationship Specialty Start Date End Date Teresita Munroe DO [address] [place] [id number] PCP - General Family Medicine 07/28/14 documented as of this encounter
--- OUTSIDE RECORDS SUMMARY | 2024-07-07 14:45 | XMS_ITS | Clinical Summary ---
Author Organization [employer] Address [address] [place] [address] [address] [place] [address] Care Team Providers Care Indian Nanny Name Role Phone LudwigTeresita Primary Care Provider [phone] Allergies Active Allergy Reactions Criticality Noted Date [...] by oral route twice daily Active Umeclidinium [place] (Incruse Ellipta) 62.5 MCG/ACT aerosol powderIndicati ons:Chronic obstructive pulmonary disease, unspecified COPD type (CMS/HCC) Inhale 1 puff in the morning. 30 each 11 06/09/19 23 Active sodium chloride ([place] Nasal [place]) 0.65 % nasal sprayIndicatio ns:COVID-19 1-2 sprays [...] 2 diabetes mellitus without complication, unspecified whether watermelon inspector insulin use (CMS/HCC) TAKE 1 TABLET BY [...] 2 diabetes mellitus without complication, unspecified whether prison insulin use (CMS/HCC) TAKE 1 TABLET BY [...] Encounters Date Type Department Care Team Description 07/07/2024 Orders Only GENERIC EXTERNAL DATA DEPARTMENT Provider, Generic External Data 06/26/2024 Refill [facility] [address] [place] [address] Teresita Munroe, Chronic pain of both shoulders (Primary Dx) 06/25/2024 Refill [facility] [address] [place] [address] Teresita Munroe, Chronic pain of both shoulders (Primary Dx) 06/16/2024 Orders Only [facility] External Provider, [facility] 06/12/2024 Refill [facility] [address] [place] [address] Teresita Munroe, Chronic obstructive pulmonary disease, unspecified COPD type (CMS/HCC); 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 complication, unspecified whether prison insulin use ([facility]/HCC); Osteopenia, unspecified location 06/12/2024 Refill [facility] [address] [place], [place] [phone] Charmaine Rowland MD 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 complication, unspecified whether prison insulin use ([facility]); Osteopenia, unspecified location 05/19/2024 Refill [facility] [address] [place] [address] Teresita Munroe DO Rheumatoid arthritis, involving unspecified site, unspecified whether rheumatoid factor present ([facility]) 05/09/2024 Telephone [facility] [address] [place], [place] [phone] Teresita Munroe DO Appointment Request 05/09/2024 Telephone [facility] [address] [place], [place] [phone] Ana Beach RN [employer] Tele TRAIN ELECTRONIC 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 Tier 2 04/14/2024 Refill [facility] [address] [place], [place] [phone] Teresita Munroe DO Chronic pain of both [...] Additional history exists Influenza Vaccine (#1) 2024 3, 06/09/2022, 05/24/2021, Additional history exists RSV Patients [...] Procedure Name Priority Date/Time Associated Diagnosis Comments PTH, INTACT WITHOUT CALCIUM Routine 07/07/2024 1:33 PM EST US ABDOMINAL AORTIC ANEURYSM Routine 06/17/2024 11:23 [...] 9:31 AM EST THYROGLOBULIN, LC/MS/MS Routine 04/09/20 24 9:31 AM EST T3, TOTAL Routine 04/09/2024 [...] Recently Relevant to Health Maintenance Results * (ABNORMAL) PTH, Intact Without Calcium (07/07/2024 1:33 PM EST) Only the most recent of2 resultswithin the time period is included. Parathyroid Hormone, Intact 80.3(H) 8.7 - 77.1 pg/mL [facility] 07/07/2024 1:33 PM EST 07/07/2024 1:33 PM EST us Generic External Data Provider LAB BLOOD ORDERAB LES Final Result [facility] [address] [place] [phone] * US ABDOMINAL AORTIC ANEURYSM (06/17/2024 11:23 AM EST) Anatomical Region Laterality Modality Abdomen Ultrasound 06/17/2024 11:2 3 AM EST Narrative 06/17/2024 11:24 AM EST ? [facility] ?[address] ? [place] [address] ? Ultrasound Report ? Signed ? Patient: Gagan,Aspen ?MR#: [id number] ?? 4 ? : 1950 ?Acct:[id number] ? Age/Sex: 74 / F ?ADM Date: 06/16/24 ? Loc: HO.HMGCX ? Attending Dr: Daron Jones MD ? Ordering Physician: Daron Jones MD ?? Date of Service: 06/16/24 ?? Procedure(s): US abdominal aortic aneurysm ?? Accession Number(s): [id number] ? cc: Teresita Munroe DO; Daron Jones [...] DD/ 1123 ? TD/TT: 06/17/24 1123 ? Torts Law Professor: ? Procedure Note Donavister, Image - 06/17/2024 [facility] [address] [place] [address] [place] [address] Ultrasound Report Signed Patient: Shirin Farah#: [id number] 4 : 9Acct:[id number] Age/Sex: 74 / FADM Date: 06/16/24 Loc: HO.HMGCX Attending Dr: Daron Jones MD Ordering Physician: Daron Jones MD Date of Service: 06/16/24 Procedure(s): US abdominal aortic aneurysm Accession Number(s): [id number] cc: Teresita Munroe DO; Daron Jones MD [...] 06/17/24 1124 DD/ 1123 TD/TT: 06/17/24 1123 Torts Law Professor: us [facility] External Provider IMG US PROCEDURES Final Result * Collagen Type I C-Telopeptide (CTx) (04/09/2024 9:31 AM EST) C-Telopeptide (CTx) 400 see note pg/mL [facility] Comment: ?Unable to flag abnormal [...] of bone loss.For additional information, please refer tohttps://Advasense/faq/HUG936(This link is being provided for informational/educational purposes only.)THIS TEST WAS PERFORMED AT:[employer]/[address] SMSDEWPKF[address] [place], [place] ??[phone] CLIFFORD MD,PHD 04/09/2024 9:31 AM EST 04/09/2024 9:31 AM EST us Generic External Data Provider LAB BLOOD ORDERAB LES Final Result [facility] [address] [place] [phone] * Thyroglobulin, LC/MS/MS (04/09/2024 9:31 AM EST) Thyroglobulin, LC/MS/MS 15.4 ng/mL [facility] Comment:Reference Range: Int act Thyroid 2.8-40.9 Athyrotic <0.1 Note: Abnormal flagging is based on the reference interval for patients with intact thyroid.This test was performed using the Jaxon Coulterchemiluminescent method. Values obtained fromdifferent assay methods cannot be usedinterchangeably. Thyroglobulin levels, regardlessof value, should not be interpreted as absoluteevidence of the presence or absence of disease. Thyroglobulin Comment See Below [facility] Comment:Thyroglobulin antibo dies (TGAB) interfere withthyroglobulin (TG) assays; therefore, TGAB assayshould always be performed in conjunction with aTG assay.For additional information, please refer tohttp://[employer]ense/faq/TJI784(This link is being provided for informational/educational purposes only.)THIS TEST WAS PERFORMED AT:[facility] [employer] [place] [phone] MACEDO MD 04/09/2024 9:31 AM EST 04/09/2024 9:31 AM EST Generic External Data Provider LAB BLOOD ORDERAB LES Final Result Performing Organization Address [facility] Co de Phone Number [facility] [address] [place] [phone] * (ABNORMAL) Vitamin D, 25-Hydroxy, Total, Immunoassay (04/09/2024 9:31 AM EST) Vitamin D 25-OH Total 19.8(L) >30 ng/mL [facility] Comment:Health Based Referen ce Values*< 20 ng/mL Umyajtrgn06-95 ng/mL Insufficient> 30 ng/mL Sufficient*Santos MARCELINO. N [...] ORDERAB LES Final Result Performing Organization Address [facility] de Phone Number [facility] [address] [place] [phone] * T-SPOT??.TB (04/09/2024 9:31 AM EST) T Spot TB Negative Negative [facility] Comment:A negative test resu lt [...] as aquantitative test. TS PANEL A 0 [facility] TS PANEL B 0 [facility] Negative Control Passed [facility] Positive Control Passed [facility] Comment:For additional infor mation, please refer tohttp://education.[employer] Software/faq/FRW105(This link is being provided for informational/educational purposes only.)THIS TEST WAS PERFORMED AT:[employer] [address] [id number] CLIFFORD MD,PHD 04/09/2024 9:31 AM EST 04/09/2024 9:31 AM EST us Generic External Data Provider LAB BLOOD ORDERAB LES Final Result [facility] [address] [place] [phone] * (ABNORMAL) T4 Free, Direct Dialysis (04/09/2024 9:31 AM EST) T4, Free, Direct Dialysis 0.7(A) 0.9 - 2.2 ng/dL [facility] Comment:This test was develo ped and its analytical performancecharacteristics have been determined by [employer] [place], [place]. It hasnot been cleared or approved by the U.S. Food and DrugAdministration. This assay has been validated pursuantto the CLIA regulations and is used for clinicalpurposes.THIS TEST WAS PERFORMED AT:[employer] GroupY[address] [place] [address]QWSPQTGJOSH CLIFFORD MD,PHD 04/09/2024 9:31 AM EST 04/09/2024 9:31 AM EST us Generic External Data Provider LAB BLOOD ORDERAB LES Final Result Performing Organization Address City/[facility]/ZIP Co de Phone Number [facility] [address] [place] [phone] * Protein Electrophoresis and Flasher/Lambda Light Chains (04/09/2024 9:31 AM EST) Prot Elec - Total Protein 7.2 6.1 - 8.1 g/dL [facility] Prot Elec - Albumin 3.9 3.8 - 4.8 g/dL [facility] Prot Elec - Alpha1 0.2 0.2 - 0.3 g/dL [facility] Prot Elec - Alpha2 0.8 0.5 - 0.9 g/dL [facility] Prot Elec - Beta 1 0.4 0.4 - 0.6 g/dL [facility] Prot Elec - Beta 2 0.5 0.2 - 0.5 g/dL [facility] Prot Elec - Gamma 1.4 0.8 - 1.7 g/dL [facility] PES - Abn Protein Band 1 [facility] PES-Abn Protein Band 2 [facility] PES-Abn Protein Band 3 [facility] Prot Elec - Interpretation SEE NOTE [facility] Comment:Normal Serum Protein Electrophoresis Pattern.No abnormal protein bands (M-protein) detected.THIS TEST WAS PERFORMED AT:[facility] [place] [phone] MACEDO MD 04/09/2024 9:31 AM EST 04/09/2024 9:31 AM EST us Generic External Data Provider LAB BLOOD ORDERAB LES Final Result Performing Organization Address City/[facility]/ZIP Co de Phone Number [facility] [address] [place] [phone] * Hepatitis Panel, General (04/09/2024 9:31 AM EST) Hepatitis A IgM Nonreactive Nonreactive [facility] Comment:IgM antibodies to GUERRA V not detected; does not exclude earlyacute or recovered HAV infection. ~Hepatitis B Surface Antibody REACTIVE Nonreactive [facility] Comment:REACTIVE: > 11.99 mI U/mL Hepatitis B Core Antibody Nonreactive Nonreactive [facility] Hepatitis C Antibody Nonreactive Nonreactive [facility] Comment:Antibodies to HCV no t detected; does not exclude early acuteHCV infection. Hepatitis B Surface Ag Negative Negative [facility] 04/09/2024 9:31 AM EST 04/09/2024 9:31 AM EST us Generic External Data Provider LAB BLOOD ORDERAB LES Final Result [facility] [address] [place] [phone] * (ABNORMAL) CBC auto differential (04/09/2024 9:31 AM EST) White Blood Count 5.0 4.8 - 10.8 X10*3/uL [facility] Red Blood Count 4.17(L) 4.20 - 5.50 X10*6/uL [facility] Hemoglobin 12.5 12.0 - 16.0 g/dl [facility] Hematocrit 37.6 37.0 - 47.0 % [facility] Mean Corpuscular Volume 90.2 80.0 - 98.0 fL [facility] Mean Corpuscular Hemoglobin 30.0 27.0 - 33.0 pg [facility] Mean Corpuscular HGB Conc 33.2 31.0 - 35.0 g/dl [facility] Red Cell Distribution Width 13.2 11.0 - 16.0 % [facility] Platelet Count 225 160 - 400 X10*3/uL [facility] Mean Platelet Volume 10.4 9.4 - 12.3 fL [facility] Neutrophils Percent Auto 43.6(L) 45 - 73 % [facility] Imm Gran Pct Auto 0.2 0.0 - 0.4 % [facility] Lymphocytes Percent Auto 40.0 20 - 40 % [facility] Monocytes Percent Auto 8.2 2 - 11 % [facility] Eosinophils Percent Auto 6.8(H) 0 - 4 % [facility] Basophils Percent Auto 1.2 0 - 2 % [facility] NRBC Pct Auto 0.0 0.0 - 0.2 /100WBC [facility] Neutrophils Absolute Auto 2.2 2.0 - 8.3 x10*3/uL [facility] Imm Gran Abs Auto 0.01 0.00 - 0.03 X10*3/uL [facility] Lymphocytes Absolute Auto 2.0 1.2 - 4.9 X10*3/uL [facility] Monocytes Absolute Auto 0.4 0.1 - 1.2 X10*3/uL [facility] Eosinophils Absolute Auto 0.3 0.0 - 0.4 X10*3/uL [facility] Basophils Absolute Auto 0.1 0.0 - 0.2 X10*3/uL [facility] NRBC Abs Auto 0.000 0.0 - 0.012 X10*3/uL [facility] 04/09/2024 9:31 AM EST 04/09/2024 9:31 AM EST us Generic External Data Provider LAB BLOOD ORDERAB LES Final Result [facility] [address], [place] [phone] * Alpha-Fetoprotein, Tumor Marker (04/09/2024 9:31 AM EST) Alpha Fetoprotein 4.6 ng/mL [facility] Comment:Reference Range: <6. 1The use of AFP as a tumor marker in females is not recommended.This test was performed using the Jaxon Coulterchemiluminescent method. Values obtained fromdifferent assay methods cannot be usedinterchangeably. AFP levels, regardless ofvalue, should not be interpreted as absoluteevidence of the presence or absence of disease.THIS TEST WAS PERFORMED AT:[employer] [address] [id number] MACEDO MD Blood Venous blood specimen / Unknown 04/09/2024 9:31 AM EST 04/09/2024 9:31 AM EST Teresita Munroe DO LAB BLOOD ORDERABLES Final R esult Performing Organization Address [facility]/ZIP Co de Phone Number [facility] [address] [place] [phone] * Alkaline Phosphatase, Bone Specific (04/09/2024 9:31 AM EST) Alkaline Phosphatase, Bone Specific 16.1 5.6 - 29.0 mcg/L [facility] Comment:Reference Range, Pre menopausal (mcg/L) 35-45 years 5.0-18.2THIS TEST WAS PERFORMED AT:[employer]/HOWEMERCY FITZGERALD HOSPITALHIOTTNKSX[address] [place] [address]TWTQNCAJOSH CLIFFORD MD,PHD 04/09/2024 9:31 AM EST 04/09/2024 9:31 AM EST us Generic External Data Provider LAB BLOOD ORDERAB LES Final Result Performing Organization Address [facility]/ZIP Co de Phone Number [facility] [address] [place] [phone] * (ABNORMAL) Sed Rate by Sandy Le (04/09/2024 9:31 AM EST) Erythrocyte Sedimentation Rate 49(H) 0 - 20 MM/HR [facility] Comment:Patients with polycy themia and many hemoglobin abnormalitiesmay have depressed sed rates whereas patients with anemiamay have elevated sed rates. 04/09/2024 9:31 AM EST 04/09/2024 9:31 AM EST us Generic External Data Provider LAB BLOOD ORDERAB LES Final Result Performing Organization Address City/[facility]/ZIP Co de Phone Number [facility] [address] [place] [phone] * (ABNORMAL) CBC (04/09/2024 9:31 AM EST) White Blood Count 5.0 4.8 - 10.8 X10*3/uL [facility] Red Blood Count 4.18(L) 4.20 - 5.50 X10*6/uL [facility] Hemoglobin 12.4 12.0 - 16.0 g/dl [facility] Hematocrit 38.4 37.0 - 47.0 % [facility] Mean Corpuscular Volume 91.9 80.0 - 98.0 fL [facility] Mean Corpuscular Hemoglobin 29.7 27.0 - 33.0 pg [facility] Mean Corpuscular HGB Conc 32.3 31.0 - 35.0 g/dl [facility] Red Cell Distribution Width 13.3 11.0 - 16.0 % [facility] Platelet Count 213 160 - 400 X10*3/uL [facility] Mean Platelet Volume 10.6 9.4 - 12.3 fL [facility] NRBC Pct Auto 0.0 0.0 - 0.2 /100WBC [facility] NRBC Abs Auto 0.000 0.0 - 0.012 X10*3/uL [facility] Blood Venous blood specimen / Unknown 04/09/2024 9:31 AM EST 04/09/2024 9:31 AM EST us Teresita Munroe DO LAB BLOOD ORDERABLES Final R esult Performing Organization Address City/[facility]/ZIP Co de Phone Number [facility] [address] [place] [phone] * (ABNORMAL) Immunofixation, Serum (04/09/2024 9:31 AM EST) IMMUNOGLOBULIN G 1371 600 - 1540 mg/dL [facility] IMMUNOGLOBULIN A 396(A) 70 - 320 mg/dL [facility] Immunoglobulin M 364(A) 50 - 300 mg/dL [facility] Comment:THIS TEST WAS PERFOR MED AT:[facility] [employer] [place] [id number] MACEDO MD Immunofixation Result SEE NOTE [facility] Comment:Normal pattern. No m onoclonal proteins detected. 04/09/2024 9:31 AM EST 04/09/2024 9:31 AM EST us Generic External Data Provider LAB BLOOD ORDERAB LES Final Result Performing Organization Address [facility] Phone Number [facility] [address] [place] [phone] * (ABNORMAL) C-reactive Protein (04/09/2024 9:31 AM EST) C Reactive Protein 0.59(H) < or = 0.50 mg/dL [facility] 04/09/2024 9:31 AM EST 04/09/2024 9:31 AM EST Generic External Data Provider LAB BLOOD ORDERAB LES Final Result Performing Organization Address [facility] Co de Phone Number [facility] [address] [place] [phone] * Uric acid (04/09/2024 9:31 AM EST) Uric Acid 5.6 2.4 - 5.7 mg/dL [facility] 04/09/2024 9:31 AM EST 04/09/2024 9:31 AM EST us Generic External Data Provider LAB BLOOD ORDERAB LES Final Result Performing Organization Address [facility] Co de Phone Number [facility] [address] [place] [phone] * T3, Total (04/09/2024 9:31 AM EST) T3, Total 113 76 - 181 ng/dL [facility] Comment:THIS TEST WAS PERFOR MED AT:[employer] [address] [address]FSHJXAZALIA MACEDO MD 04/09/2024 9:31 AM EST 04/09/2024 9:31 AM EST us Generic External Data Provider LAB BLOOD ORDERAB LES Final Result Performing Organization Address [facility] de Phone Number [facility] [address] [place] [phone] * TSH (04/09/2024 9:31 AM EST) Pathologist [facility] Thyroid Stimulating Hormone 1.17 0.32 - 4.0 uIU/mL [facility] Comment:TSH 3rd Generation ( [facility]) Blood Venous blood specimen / Unknown 04/09/2024 9:31 AM EST 04/09/2024 9:31 AM EST us Teresita Munroe DO LAB BLOOD ORDERABLES Final R esult Performing Organization Address [facility] Co de Phone Number [facility] [address] [place] [phone] * Thyroxine-binding Globulin (TBG), Serum (04/09/2024 9:31 AM EST) Pathologist [facility] TBG (Thyroxine Binding Globulin) 29.1 13.5 - 30.9 mcg/mL [facility] Comment:To convert to nmol/L , multiply the result by 18.5.THIS TEST WAS PERFORMED AT:[employer]/[facility]Y[address] [place] [address]GSKUALCJOSH CLIFFORD MD,PHD 04/09/2024 9:31 AM EST 04/09/2024 9:31 AM EST us Generic External Data Provider LAB BLOOD ORDERAB LES Final Result Performing Organization Address City/[facility] Co de Phone Number [facility] [address] [place] [phone] * T4 (Thyroxine), Total (04/09/2024 9:31 AM EST) T4 Thyroxine 6.1 4.5 - 12.0 ug/dL [facility] 04/09/2024 9:31 AM EST 04/09/2024 9:31 AM EST us Generic External Data Provider LAB BLOOD ORDERAB LES Final Result Performing Organization Address [facility] de Phone Number [facility] [address] [place] [phone] * Hemoglobin A1c (04/09/2024 9:31 AM EST) Hemoglobin A1c 5.9 <6.0 % [facility] Comment:Hemoglobin A1C Refer ence Range Adults: 4.8 - 6.0 % Non diabetic: < 6.0 % Goal: < 7.0 %Additional Action Suggested: > 8.0 %Note: Hemoglobin A1c results are invalid for patients with abnormal amounts of HbF. Blood transfusions may impact the HbA1c concentration in the patient sample. Estimated Average Glucose 123 mg/dL [facility] Comment:eAG = Estimated ave rage glucose which is %A1C expressed asaverage glucose, using the formula of the N9L-ZlrqbdtFabcdoy Glucose study (ADAG), Diabetes Care, Vol.31,#8,Jan. 2007 Blood Venous blood specimen / Unknown 04/09/2024 9:31 AM EST 04/09/2024 9:31 AM EST us Teresita Munroe DO LAB BLOOD ORDERABLES Final R esult Performing Organization Address City/[facility] Co de Phone Number [facility] [address] [place] [phone] * Calcium (04/09/2024 9:31 AM EST) Calcium 9.8 8.4 - 10.2 mg/dL [facility] 04/09/2024 9:31 AM EST 04/09/2024 9:31 AM EST us Generic External Data Provider LAB BLOOD ORDERAB LES Final Result Performing Organization Address [facility] Co de Phone Number [facility] [address] [place] [phone] * Albumin (04/09/2024 9:31 AM EST) Albumin Level 4.1 3.5 - 5.0 g/dL [facility] 04/09/2024 9:31 AM EST 04/09/2024 9:31 AM EST us Generic External Data Provider LAB BLOOD ORDERAB LES Final Result Performing Organization Address [facility] Co de Phone Number [facility] [address] [place] [phone] * Hepatic Function Panel (04/09/2024 9:31 AM EST) Bilirubin, Direct 0.2 0.0 - 0.5 mg/dL [facility] Blood Venous blood specimen / Unknown 04/09/2024 9:31 AM EST 04/09/2024 9:31 AM EST us Teresita Munroe DO LAB BLOOD ORDERABLES Final R esult Performing Organization Address [facility] Co de Phone Number [facility] [address] [place] [phone] * Lipid Panel, Standard (04/09/2024 9:31 AM EST) Triglycerides 88 <150 mg/dL [facility] Comment:Desirable Triglyceri de: less than 150 mg/dLBorderline High Triglyceride 150-199 mg/dLHigh Triglyceride: 200-499 mg/dLVery High Triglyceride: greater than or equal to 5OO mg/dL Cholesterol 97 <200 mg/dL [facility] Comment:Desirable Cholestero l: less than 200 mg/dLBorderline High Cholesterol: 200-239 mg/dLHigh Cholesterol: greater than 239 mg/dL LDL Cholesterol Calculated 32 <100 mg/dL [facility] Comment:Desirable LDL: less than 100 mg/dLNear Optimal/Above Optimal LDL: 110- 129 mg/dLBorderline High LDL: 130-159 mg/dLHigh LDL: 160-189 mg/dLVery High LDL: greater than or equal to 190 mg/dL HDL Cholesterol 48 >40 mg/dL [facility] Comment:Desirable HDL: great er than 40 mg/dL Note: This HDL assay may give artificially low results in patients with liver disease. Blood Venous blood specimen / Unknown 04/09/2024 9:31 AM EST 04/09/2024 9:31 AM EST us Teresita Munroe DO LAB BLOOD ORDERABLES Final R esult [facility] [address] [place] [phone] * (ABNORMAL) Comprehensive Metabolic Panel (04/09/2024 9:31 AM EST) Sodium 143 135 - 145 mmol/L [facility] Potassium 3.9 3.3 - 5.1 mmol/L [facility] Chloride 109(H) 96 - 108 mmol/L [facility] Carbon Dioxide 25 22 - 29 mmol/L [facility] Anion Gap 13 12 - 20 [facility] Urea Nitrogen (BUN) 12 9 - 16 mg/dL [facility] Creatinine, Serum 0.72 0.5 - 1.4 mg/dL [facility] Estimated Glomerular Filt Rate >60 [facility] Comment:NOTE: For -Am erican individuals, multiply the result by 1.210.Chronic Kidney Disease: Estimated GFR < 60 mL/min/1.66c2Csawou Kidney Disease: Estimated GFR < 15 mL/min/1.73m2 Glucose 105 60 - 115 mg/dL [facility] Calcium 9.5 8.4 - 10.2 mg/dL [facility] Bilirubin, Total 0.5 0.0 - 1.0 mg/dL [facility] Aspartate Amino Transferase 27 5 - 31 U/L [facility] Alanine Aminotransferase 17 0 - 31 U/L [facility] Total Protein 7.8 6.5 - 8.0 g/dL [facility] Albumin Level 4.1 3.5 - 5.0 g/dL [facility] Alkaline Phosphatase 87 39 - 117 U/L [facility] 04/09/2024 9:31 AM EST 04/09/2024 9:31 AM EST us Generic External Data Provider LAB BLOOD ORDERAB LES Final Result Performing Organization Address City/[facility]/ZIP Co de Phone Number [facility] [address] [place] [phone] * Albumin, Random Urine W/Creatinine (04/09/2024 9:28 AM EST) Creatinine, Urine 128.14 mg/dL [facility] Microalbumin Urine 12.0 mg/L [facility] Microalbum Creatinine Ratio Ur 9.3 <30 ug/mg cr [facility] Comment:Albumin/Creatinine R atio Reference Ranges: Normal: < 30 ug/mg creatinine Microalbuminuria: 30 - 300 ug/mg creatinineClinical Albuminuria: > 300 ug/mg creatinine Urine (Urine, Random) 04/09/2024 9:28 AM EST 04/09/2024 9:40 AM EST us Teresita Munroe DO LAB URINE ORDERABLES Final R esult [facility] [address] [place] [phone] * (ABNORMAL) CREATININE, 24 HR GROUP (04/09/2024 8:00 AM EST) Creatinine, 24 Hour Urine 0.7(L) 1.0 - 2.0 G/Day [facility] Creatinine, Urine 73.97 [facility] Urine Total Volume 24 Hour 950 mL [facility] 04/09/2024 8:00 AM EST 04/09/2024 9:50 AM EST [facility] - 04/09/2024 12:53 PM EST [id number] us Generic External Data Provider LAB URINE ORDERAB LES Final Result Performing Organization Address [facility] de Phone Number [facility] [address] [place] [phone] * Calcium, 24 Hour Urine W/ Creatinine (04/09/2024 8:00 AM EST) Calcium, 24 Hour Urine 68 mg/24 h [facility] Comment:Reference Range 35-2 50 Low calcium diet 35-200 Calcium/Creatini ne Ratio 97 30 - 275 mg/g creat [facility] Creatinine, 24 Hour Urine 0.70 0.50 - 2.15 g/24 h [facility] Comment:THIS TEST WAS PERFOR MED AT:[facility] [place] [id number] MACEDO MD 04/09/2024 8:00 AM EST 04/09/2024 9:50 AM EST [facility] - 04/10/2024 4:37 PM EST [id number] us Generic External Data Provider LAB URINE ORDERAB LES Final Result Performing Organization Address [facility] Co de Phone Number [facility] [address] [place] [phone] * Cortisol, Free, 24 Hour Urine (04/09/2024 8:00 AM EST) Cortisol, Free, 24 hr Urine 4.9 4.0 - 50.0 mcg/24 h [facility] Comment:This test was develo ped and its analytical performancecharacteristics have been determined by [employer].It has not been cleared or approved by FDA. This assay hasbeen validated pursuant to the CLIA regulations and is usedfor clinical purposes. Creatinine, Urine 0.72 0.50 - 2.15 g/24 h [facility] Comment:THIS TEST WAS PERFOR MED AT:[employer] [id number] [place] [id number] LIPSCOMB MD,PHD,BIANCA Total Volume 950 mL [facility] 04/09/2024 8:00 AM EST 04/09/2024 9:50 AM EST Narrative [facility] - 04/14/2024 4:22 PM EST [id number] us Generic External Data Provider LAB BLOOD ORDERAB LES Final Result [facility] [address] [place] [phone] * Hm Colonoscopy (11/10/2020 10:20 AM EDT) us Historical Provider HEALTH MAINTENANCE Final Result from Last 3 Months or Most Recently Relevant to Health Maintenance Insurance [address] [place] [id number] [facility] - [facility] D[facility] - [facility] Care Teams Indian Nanny Relationship Specialty Start Date End Date Teresita Munroe DO [address] [place] [address] PCP - General Family Medicine 07/28/14
--- OUTSIDE RECORDS SUMMARY | 2024-07-07 14:45 | XMS_ITS | Encounter Summary ---
Author Organization [employer] Address [address] [facility] 7t [place] [address] Care Team Providers Care Flatbed Truck Driver Name Role Phone Kamille Munroenifer Primary Care Provider + [phone] Encounter Details Date Type Department Care Team ([facility] st Contact Info) Description 09/14/2023 Orders Only [facility] MEDICINE [address] [place] [address] ProviderFlor MD Social History Tobacco Use Types [...] on filedocumented in this encounter Care Teams Flatbed Truck Driver Relationship Specialty Start Date End Date Teresita Munroe DO [address] [place] [address] PCP - General Family Medicine 07/28/14 documented as of this encounter
--- OUTSIDE RECORDS SUMMARY | 2024-07-07 14:45 | XMS_ITS | Encounter Summary ---
Author Organization [employer] Address 75 [facility] 7t [place] [address] Care Team Providers Care Ict Development Manager Name Role Phone LudwigTeresita Primary Care Provider [phone] Encounter Details Date Type Department Care Team (Late st Contact Info) Description 07/07/2024 Orders Only GENERIC EXTERNAL DATA DEPARTMENT Provider, Generic External Data Social History Tobacco Use Types Packs/Day Years [...] WITHOUT CALCIUM Routine 07/07/2024 1:33 PM EST documented in this encounter Results * (ABNORMAL) PTH, Intact Without Calcium (07/07/2024 1:33 PM EST) Parathyroid Hormone, Intact 80.3(H) 8.7 - 77.1 pg/mL [facility] 07/07/2024 1:33 PM EST 07/07/2024 1:33 PM EST us Generic External Data Provider LAB BLOOD ORDERAB LES Final Result Performing Organization Address City/State/[facility] Co de Phone Number [facility] [address] [place] [phone] documented in this encounter Visit Diagnoses Not on filedocumented in this encounter Additional Health Concerns Assessment Noted Time PHQ-9 Depression Total Score: 5 01/22/20 24 9:55 AM EDT documented as of this encounter Care Teams Ict Development Manager Relationship Specialty Start Date End Date Teresita Munroe DO [address] [place] [address] PCP - General Family Medicine 07/28/14 documented as of this encounter
--- OUTSIDE RECORDS SUMMARY | 2024-07-07 14:45 | XMS_ITS | Encounter Summary ---
Author Organization [employer] Address 75 [facility] 7t [place] [address] Care Team Providers Care Vp Design Name Role Phone Teresita Munroe DO Primary Care Provider [phone] Encounter Details Date Type Department Care Team ([facility] st Contact Info) Description 08/03/2022 Abstract [facility] ADULT DENTAL [address] [place] [address] Bhanu Barakat DDS [address] [place] [address] Social History Tobacco Use Types Packs/Day Years [...] on filedocumented in this encounter Care Teams Vp Design Relationship Specialty Start Date End Date Teresita Munroe DO [address] [place] [address] PCP - General Family Medicine 07/28/14 documented as of this encounter
--- OUTSIDE RECORDS SUMMARY | 2024-07-07 14:45 | XMS_ITS | Encounter Summary ---
Author Organization [employer] Address 75 [facility] 7t [place] [address] Care Team Providers Care Web Art Director Name Role Phone Teresita Munroe DO Primary Care Provider Encounter Details Date Type Department Care Team (Late st Contact Info) Description 06/15/2022 Abstract [facility] ADULT DENTAL [address] [place] [address] Jelena Morgan DDS [address] [place] [address] Social History Tobacco Use Types Packs/Day Years [...] on filedocumented in this encounter Care Teams Web Art Director Relationship Specialty Start Date End Date Teresita Munroe DO [address] [place] [address] PCP - General Family Medicine 07/28/14 documented as of this encounter
--- OUTSIDE RECORDS SUMMARY | 2024-07-07 14:45 | XMS_ITS | Encounter Summary ---
Author Organization [employer] Address 75 [facility] 7t [place] [address] Care Team Providers Care Audio Visual Tech Name Role Phone Teresita Munroe DO Primary Care Provider Reason for Visit * Reason Onset Date Comments Med Refill 06/26/2024 Reschedule [employer] appt missed 05/09/24 06/26/2024 Encounter Details Date Type Department Care Team (Late st Contact Info) Description 06/26/2024 Refill [facility] MEDICINE [address] [place] [address] Teresita Munroe DO [address] [place], [place] [phone] Chronic pain of both shoulders (Primary Dx) [...] EST Pt was a NCNS for Tele [employer] RV appt, 05/09/24. Return TC via S#[phone], no answer. Left message asking her to call back. * Telephone Encounter - Sierra Porter - 06/26/2024 1:14 PM EST Leonora walked in requesting if you can call her at [phone] she wants to rs aspen appt from [...] documented as of this encounter Care Teams Audio Visual Tech Relationship Specialty Start Date End Date Teresita Munroe DO [address] [place] [address] PCP - General Family Medicine 07/28/14 documented as of this encounter
--- OUTSIDE RECORDS SUMMARY | 2024-07-07 14:45 | XMS_ITS | Encounter Summary ---
Author Organization [employer] Address 75 [facility] 7t [place] [address] Care Team Providers Care Skiver Machine Operator Name Role Phone LorenTeresita blanco Primary Care Provider [phone] Reason for Visit * Reason Comments Med Refill Encounter Details Date Type Department Care Team ([facility] st Contact Info) Description 06/12/2024 Refill [facility] MEDICINE [address] [place] [address] Charmaine Rowland MD [address] [place] [address] 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 complication, unspecified whether senior living insulin use ([facility]); Osteopenia, unspecified location Social History Tobacco [...] 2 diabetes mellitus without complication, unspecified whether vermin exterminator insulin use ([facility]) Osteopenia, unspecified location documented in this encounter Additional Health Concerns Assessment Noted Time PHQ-9 Depression Total Score: 5 01/22/20 24 9:55 AM EDT documented as of this encounter Care Teams Skiver Machine Operator Relationship Specialty Start Date End Date Teresita Munroe DO [address] [place] [address] PCP - General Family Medicine 07/28/14 documented as of this encounter
--- OUTSIDE RECORDS SUMMARY | 2024-07-07 14:45 | XMS_ITS | Encounter Summary ---
Author Organization [employer] Address 75 [facility] 7t [place] [address] Care Team Providers Care Freight Shipping Agent Name Role Phone Teresita Munroe DO Primary Care Provider [phone] Reason for Visit * Reason Onset Date Comments Med Refill 06/25/2024 Encounter Details Date Type Department Care Team ([facility] st Contact Info) Description 06/25/2024 Refill [facility] [address] [place] [address] Teresita Munroe DO [address] [facility] [place] [address] Chronic pain of both shoulders (Primary Dx) [...] documented as of this encounter Care Teams Freight Shipping Agent Relationship Specialty Start Date End Date Teresita Munroe DO [address] [place] [phone] PCP - General Family Medicine 07/28/14 documented as of this encounter
--- OUTSIDE RECORDS SUMMARY | 2024-07-07 14:45 | XMS_ITS | Encounter Summary ---
Author Organization [employer] Address [address] [place] [address] 7t [place] [address] Care Team Providers Care Yoker Machine Operator Name Role Phone Teresita Munroe DO Primary Care Provider [phone] Encounter Details Date Type Department Care Team (Latest Contact Info) Description 12/22/2021 Abstract [facility] CONVERSIONS Dental, Provider, DDS Social History Tobacco [...] on filedocumented in this encounter Care Teams Yoker Machine Operator Relationship Specialty Start Date End Date Teresita Munroe DO [address] [place] [address] PCP - General Family Medicine 07/28/14 documented as of this encounter
--- OUTSIDE RECORDS SUMMARY | 2024-07-07 14:45 | XMS_ITS | Encounter Summary ---
Author Organization [employer] Address 75 [facility] 7t [place] [address] Care Team Providers Care Compressor Mechanic Name Role Phone Teresita Munroe DO Primary Care Provider [phone] Reason for Visit * Reason Comments Med Refill Encounter Details Date Type Department Care Team ([facility] st Contact Info) Description 07/02/2023 Refill [facility] MEDICINE [address] [place] [address] Teresita Munroe DO [address] [place] [address] Chronic obstructive pulmonary disease, unspecified COPD type [...] (CMS/HCC) documented in this encounter Care Teams Compressor Mechanic Relationship Specialty Start Date End Date Teresita Munroe DO [address] [place] [address] PCP - General Family Medicine 07/28/14 documented as of this encounter
--- OUTSIDE RECORDS SUMMARY | 2024-07-07 14:45 | XMS_ITS | Encounter Summary ---
Author Organization [employer] Address 75 [facility] 7t [place] [address] Care Team Providers Care Carton Stamper Name Role Phone LudwigTeresita Primary Care Provider [phone] Encounter Details Date Type Department Care Team (Late st Contact Info) Description 06/16/2024 Orders Only [facility] External Provider, [facility] Social History Tobacco Use Types Packs/Day [...] Adult Primary Care ?[address] ? [place] [address] ? Ultrasound Report ? Signed ? Patient: Aspen Farah ?MR#: [id number] ?? 4 ? : 1950 ?Acct:[id number] ? Age/Sex: 74 / F ?ADM Date: 06/16/24 ? Loc: HO.HMGCX ? Attending Dr: Daron Jones MD ? Ordering Physician: Daron Jones MD ?? Date of Service: 06/16/24 ?? Procedure(s): US abdominal aortic aneurysm ?? Accession Number(s): [id number] ? cc: Teresita Munroe DO; Daron Jones [...] DD/ 22 ? TD/TT: 06/17/24 1123 ? Emergency Management Coordinator: ? Procedure Note Mahamedter, Image - 06/17/2024 [facility] Adult Primary Care [address] [place] [address] [place] [address] Ultrasound Report Signed Patient: Shirin Farah#: [id number] 4 : 9Acct:[id number] Age/Sex: 74 / FADM Date: 06/16/24 Loc: HO.HMGCX Attending Dr: Daron Jones MD Ordering Physician: Daron Jones MD Date of Service: 06/16/24 Procedure(s): US abdominal aortic aneurysm Accession Number(s): [id number] cc: Teresita Munroe DO; Daron Jones MD [...] 06/17/24 1124 DD/ 1123 TD/TT: 06/17/24 1123 Emergency Management Coordinator: [facility] External Provider IMG US PROCEDURES Final Result documented in this encounter Visit Diagnoses Not on filedocumented in this encounter Additional Health Concerns Assessment Noted Time PHQ-9 Depression Total Score: 5 01/22/20 24 9:55 AM EDT documented as of this encounter Care Teams Carton Stamper Relationship Specialty Start Date End Date Teresita Munroe DO [address] [place] [address] PCP - General Family Medicine 07/28/14 documented as of this encounter
[2024-07-07 14:54] LABS: Anion Gap 10 (12-20); Blood Urea Nitrogen 14 mg/dL (9-16); Calcium 9.5 mg/dL (8.4-10.2); Carbon Dioxide 27 mmol/L (22-29); Chloride 108 mmol/L (96-108); Estimated Glomerular Filt Rate > 60; Glucose Random 98 mg/dL (60-115); Sodium 141 mmol/L (135-145); Vitamin D 25-OH Total 12.7 ng/mL (>30)
== END 2024-07-07 12:39 | disposition home or self-care (01) ==
LOC: HO.LAB 12:38
PROVIDERS: Absent Provider Student in an Organized Health Care Education/Training Program; PCP Family Medicine; Visit Provider Student in an Organized Health Care Education/Training Program
DX: M81.0 Age-related osteoporosis without current pathological fracture (principal); R79.89 Other specified abnormal findings of blood chemistry
CPT/HCPCS: 36415; 80048; 82040; 82306; 83970; 99212

== ENCOUNTER 2024-07-07 12:38 | Outpatient (AMB) | payer OTHER, SELFPAY ==
--- NOTE | 2024-07-07 12:39 | MHC.OFFVIS ---
Vital Signs 07/07/24 12:40 Height 5 ft 4 in Weight 146 lb 2.664 oz BMI 25.1 BP 120/58 L Blood Pressure Location Lt brachial Position Sitting Pulse 68 Pulse Source Pulse Oximeter Intake Visit Reasons: Osteoporosis Intake Note: Patient present today for Osteoporosis office visit. Business Intelligence Consultant Required: Yes Business Intelligence Consultant Language: Parquet Floor Layer'S Helper Services: Business Intelligence Consultant Present Business Intelligence Consultant Name: Charmaine [id number] Information Interpreted: non-clinical & clinical Accompanied by: [employer] Allergies lobster Allergy (Uncoded 07/07/24 12:46) Nausea and Vomiting Medication List - Last Reconciled 07/07/24 by Marisela Ayon MD acetaminophen ER 650 mg PO TID albuterol sulfate 90 mcg/actuation (Ventolin HFA) 2 puffs inhalation Q4-6H PRN aspirin 81 mg PO DAILY buspirone 1 tab PO BID calcium carbonate-vitamin D3 600 mg-10 mcg (400 unit) 1 tab PO BID cholecalciferol (vitamin D3) 62.5 mcg PO DAILY clopidogrel 75 mg PO DAILY diclofenac sodium 1% 1 ea topical QID docusate sodium 100 mg PO BID 14 days duloxetine 60 mg PO BID etanercept (Enbrel SureClick) 50 mg subcut QWEEK 90 days evolocumab (Repatha SureClick) 1 ea subcut Q14D evolocumab (Repatha SureClick) 140 mg subcut Q2W ezetimibe 10 mg PO DAILY fenofibrate 160 mg PO DAILY fexofenadine 180 mg PO DAILY fluticasone propion-salmeterol 500-50 mcg/dose 1 inh inhalation BID folic acid 1 mg PO DAILY gabapentin 300 mg PO DAILY ipratropium-albuterol 0.5 mg-3 mg(2.5 mg base)/3 mL mL inhalation lidocaine 5% 1 patch topical DAILY metformin ER 500 mg PO BID methotrexate sodium 7.5 mg (3 x 2.5 mg) PO QWEEK 90 days methylprednisolone (Medrol) 4 mg PO DAILY 6 weeks midodrine 1 tab PO BID montelukast 10 mg PO DAILY quetiapine 1 tab PO BEDTIME rosuvastatin 40 mg PO DAILY sodium chloride 0.65% (Deep Sea Nasal) 1 - 2 sprays intranasal Q2-3H PRN tramadol 1 tab PO BID PRN umeclidinium 62.5 mcg/actuation (Incruse Ellipta) 1 inh inhalation DAILY HPI Comments Details: 73-year-old female coming in today for follow up of osteoporosis. Here today with [employer]. Most recent bone density scan done in February 2024 showed T-score of -2.8 at the lumbar spine with increase of 2.9% in her bone density compared to 2020. T-score of-2.5 at the femoral neck and T-score of -2.3 at the total hip with decrease of 3/0.7% bone density at the hip. Bone density from October 2020 showed T-score of-3 at the lumbar spine with decrease of 1.6% in bone density compared to 2013. T-score of -2 at the femoral neck and-2 in the total hip with increase of 11.6% in BMD compared to 2013. Post menopausal osteoporosis: Diagnosed in 2013 Was seeing an endo at [facility] 6-7 years ago , Fosamax from 1239-1396. Fracture History: none Height loss: 5' 4 curerrenlty , no loss Back pain: none Pharmacotherapeutic hx: Fosamax from 2840-4057 Drug holiday from 2020 up until now Family history: mother had osteoporosis, no parent fractures hip Estrogen use: no HRT use Pregnancies: 4 alive births Menstrual hx: menopause 5o years, menarche 11-11 years , regular periods Secondary risk factors: Steroid use: has required many short courses of prednisone for RA and asthma. last course last week for an RA flare. Has had steroid injections twice 3 years ago. Also on fluticasone Hyperthyroidism: Neg Seizure medication use: None Chemo or Radiation use: Neg Heparin Use: Neg History of eating disorder: Negative correction immobilization: Negative History of kidney stones or disease: negative PI Use: has history of gastritis , used to take PPI before, no acid reflux now Chronic inflammatory lung disease: Negative Chronic inflammatory bowel disease: Negative Daily calcium intake: drinks 3 cups of milk daily, yogurt twice a day, cheese twice a day also takes 600 mg of calcium BID Vitamin D intake: 2000 units daily Exercise:walks sometimes no fixed schedule, not much, like groceries Smoking history:quit smoking 12 years ago Dental: Has regular dental cleaning, no issues Interval history Labs from Labs from 04/09/2024 showed normal kidney function with GFR greater than 60, calcium of 9.8 with albumin of 4.1, phosphorus normal at 3.3, magnesium normal at 2.3. Bone specific alkaline phosphatase 16.1, CTX 400. Vitamin-D low at 19.8. PTH mildly elevated at 80.8. 24 hour urine calcium levels on the lower side at 68 mg for 24 hours. 04/14/2024: Vitamin-D was increased from 2000 units daily in supplements to 2500 units daily.plus 800 units in calcium supplement daily. HOWEVER IT IS VERY UNCLEAR HOW MUCH SHE IS TAKING BECAUSE HER MEDICATIONS COME IN A BOX AND I HAD SENT THE VITAMIN-D TO [facility] BUT THEY ARE TELLING ME THE PHARMACIES [facility] I AM NOT REALLY SURE IF SHE WAS GETTING THE EXTRA VITAMIN-D OR NOT. Calcium: as above in HPI No fractures No falls Isolated hypothyroxinemia During chart review also noticed the labs from April 2023 showed a low free T4 level of 0.64 with normal TSH of 2.37. Isolated hypothyroxinemia. Unclear significance. Similar labs from 2019. Labs repeated 04/09/2024 show free T4 by dialysis was also low at 0.7, however normal range starts at 0.9, so not too low. TSH still normal 1.2. Total T3 normal 113, thyroglobulin normal at 15.4 with T4 binding globulin also normal at 29.1. Normal albumin. Normal total T4 6.1. Physical exam General: sitting comfortably in no acute distress HEENT: normocephalic/atraumatic, , moist oral mucosa Neck: supple, symmetrical, no thyromegaly , no dorsocervical or supraclavicular fat pads Cardiac: normal heart sounds Pulm: normal breath sounds B/L, no added breath sounds Abd: not distended, no tenderness Extremities: no edema, no signs of myxedema Neuro: AAO x3, Speech: normal, no facial droop, moving all 4 extremities Laboratory Tests 04/09/24 04/09/24 08:00 09:31 Sodium 143 Potassium 3.9 Creatinine 0.72 Estimated GFR > 60 Calcium 9.8 Phosphorus 3.3 Magnesium 2.3 Alk Phos Bone Specific 16.1 Total Protein 7.8 Total Protein (PEP) 7.2 Albumin 4.1 Albumin (PEP) 3.9 Yrevo-8-Skbkeepzb 0.2 Cubtk-9-Clpoowjza 0.8 Dvhc-0-Ksjvcfae 0.4 Dcrq-4-Yezfcnwm 0.5 Gamma Globulins 1.4 Collgn I C-Telopeptide 400 25-OH Vitamin D Total 19.8 L TSH 1.20 Free T4 0.72 Free T4 (Dialysis) 0.7 L Thyroxine (T4) 6.1 Total T3 113 Thyroglobulin 15.4 T4-Binding Globulin 29.1 PTH Intact 80.8 H Urine Total Volume 950 Ur 24 Hour Volume 950 Ur Creatinine mg/dL 73.97 Ur Creatinine 24 Hour 0.72 Ur Calcium 24 Hr 68 Calcium/Creat 24 Hr 97 Ur Free Cortisol 24 Hr 4.9 Laboratory Tests 02/22/23 04/05/23 11/02/23 10:56 09:36 08:26 Creatinine 0.77 Estimated GFR > 60 Calcium 9.8 Alkaline Phosphatase 94 Albumin 4.0 1,25 Dihydroxy Vit D 53 1,25 Dihydroxy Vit D2 <8 1,25 Dihydroxy Vit D3 53 TSH 1.46 2.37 Free T4 0.71 0.64 L Bone density 02/13/24 BONE DENSITOMETRY CLINICAL INDICATION: Osteoporosis. COMPARISON: Previous BD dated 10/21/2020 and baseline BD dated 04/08/2010. TECHNIQUE: Using a FlightCar DXA System (software version: 13.1) manufactured by [employer], dual-energy x-ray absorptiometry was performed of the lumbar spine and left hip. The images are of good technical quality. Summary results are attached. FINDINGS: LEFT FEMUR, NECK: Current: BMD 0.695 g/cm2, Z-score -0.8, T-score -2.5, osteoporosis. Prior: BMD 0.757 g/cm2. Baseline: BMD 0.619 g/cm2. LEFT FEMUR, TOTAL: Current: BMD 0.722 g/cm2, Z-score -0.8, T-score -2.3, osteopenia, 3.7% decrease from previous, 10.1% increase from baseline (<5% change is not significant). Prior: BMD 0.750 g/cm2. Baseline: BMD 0.656 g/cm2. AP SPINE L1-L4: Current: BMD 0.843 g/cm2, Z-score -1.4, T-score -2.8, osteoporosis, 2.9% increase from previous, 3.7% decrease from baseline (<5% change is not significant). Prior: BMD 0.819 g/cm2. Baseline: BMD 0.813 g/cm2. IDENTIFIED RISK FACTORS: Menopause, rheumatoid arthritis. HISTORY OF FRACTURE: None listed. MEDICATIONS: Calcium supplements or multivitamin, vitamin D. MM/XR DEXA axial skeleton IMPRESSION: 1. DIAGNOSIS: Osteoporosis based on the lowest T-score value of -2.8 in the lumbar spine applying World Health Organization criteria. 2. 10-YEAR FRACTURE RISK PREDICTION, FRAX: According to the guidelines, FRAX calculation should only be performed on patients in the osteopenia bone density category. Therefore, FRAX was not performed on this patient. BONE DENSITOMETRY 2020 CLINICAL INDICATION: Screening for osteoporosis. COMPARISON: Previous BD dated 12/25/2013 and baseline BD dated 04/08/2010. TECHNIQUE: Using a FlightCar DXA System (software version: 13.1) manufactured by [employer], dual-energy x-ray absorptiometry was performed of the lumbar spine and left hip. The images are of good technical quality. Summary results are attached. FINDINGS: AP SPINE L1-L4: Current: BMD 0.819 g/cm2, Z-score -1.6, T-score -3.0, osteoporosis, 1.6% increase from previous, 0.7% increase from baseline (<5% change is not significant). Prior: BMD 0.832 g/cm2. Baseline: BMD 0.813 g/cm2. LEFT FEMUR, NECK: Current: BMD 0.757 g/cm2, Z-score -0.5, T-score -2.0, osteopenia. Prior: BMD 0.646 g/cm2. Baseline: BMD 0.619 g/cm2. LEFT FEMUR, TOTAL: Current: BMD 0.750 g/cm2, Z-score -0.7, T-score -2.0, osteopenia, 11.6% increase from previous, 14.3% increase from baseline (<5% change is not significant). Prior: BMD 0.672 g/cm2. Baseline: BMD 0.656 g/cm2. IDENTIFIED RISK FACTORS: Menopause. HISTORY OF FRACTURE: None listed. MEDICATIONS: Calcium supplements or multivitamin, vitamin D. MM/XR DEXA axial skeleton IMPRESSION: 1. DIAGNOSIS: Osteoporosis based on the lowest T-score value of -3.0 in the lumbar spine applying World Health Organization criteria. 2. 10-YEAR FRACTURE RISK PREDICTION, FRAX: Major osteoporotic fracture (clinical spine, forearm, hip or shoulder) 6.9%. Hip fracture 1.4%. [facility] Medical History (Updated 03/27/24 @ 14:52 by Marisela Ayon MD) Hypothyroxinemia Rheumatoid arthritis Osteoarthritis (arthritis due to wear and tear of joints) Chronic venous insufficiency Subclavian artery stenosis Carotid arterial disease AAA (abdominal aortic aneurysm) Diabetes Elevated cholesterol COPD (chronic obstructive pulmonary disease) Asthma PVD (peripheral vascular disease) CAD (coronary artery disease) HTN (hypertension) Surgical History History of arthroplasty of right shoulder Hx of removal of cyst Hx of endoscopy History of colonoscopy Family History Father No problems noted. Mother Family history of high blood pressure Hx of type 1 diabetes mellitus Social History Are you a primary animal care provider to a significant other at home: No Do you presently have visiting nurse or other home services: Yes ([employer] - daily) Alcohol intake: never Patient Tobacco Use Status: Former Tobacco user Tobacco use type: Cigarette service: No Current occupational status: disabled Current occupation: left hand Assessment & Plan Assessment & Plan (1) Osteoporosis: Code(s): M81.0 - Age-related osteoporosis without current pathological fracture Category: Medical Qualifiers: Osteoporosis type: age-related Presence of current pathological fracture: without current pathological fracture Qualified Code(s): M81.0 - Age-related osteoporosis without current pathological fracture Plan: Patient with a history of osteoporosis diagnosed in , who was on alendronate from 6950-4308. This would make sense given that she had significant improvement in her bone density at the hip from 9499-2065 with an 11.6% increase in bone density at the hip. Her most recent bone density scan from February 2024 shows that she is still osteoporotic with osteoporosis at the lumbar spine with a T-score of -2.8 with a 2.9% increase in bone density of the lumbar spine compared to 2020. Her lowest T-scores are around-3.4, - 3.5 and L2 and L4 respectively. Plus she even has some arthritis when I reviewed the images myself likely falsely elevating her bone density at the spine. Her bone density at the hip has decreased by 3.7% compared to 202 and she is still osteoporotic with T-score of -2.5 at the femoral neck, T-score is -2.3 at the total hip. Her risk factors for osteoporosis are age, being postmenopausal, steroid use, rheumatoid arthritis, family history of osteoporosis, petite physique. I discussed conservative measures including adequate calcium intake, adequate vitamin D levels as well as the role of weightbearing exercises in general being good for bone health. Labs from 04/09/2024 showed normal kidney function with GFR greater than 60, calcium of 9.8 with albumin of 4.1, phosphorus normal at 3.3, magnesium normal at 2.3. Bone specific alkaline phosphatase 16.1, CTX 400. Vitamin-D low at 19.8. PTH mildly elevated at 80.8. 24 hour urine calcium levels on the lower side at 68 mg for 24 hours. 04/14/2024: Vitamin-D was increased from 2000 units daily in supplements to 2500 units daily.plus 800 units in calcium supplement daily. HOWEVER IT IS VERY UNCLEAR HOW MUCH SHE IS TAKING BECAUSE HER MEDICATIONS COME IN A BOX AND I HAD SENT THE VITAMIN-D TO [facility] BUT THEY ARE TELLING ME THE PHARMACY is [facility] I AM NOT REALLY SURE IF SHE WAS GETTING THE EXTRA VITAMIN-D OR NOT. At this point if she was on the increased amount she has been on it for the past 2-1/2 months, we will repeat vitamin-D levels to see if her levels have improved. I have also resent the prescription to [facility]. Her PTH level was also noted to be elevated likely in the setting of vitamin-D deficiency. We will repeat these with vitamin-D levels. In addition to conservative management with calcium and vitamin D; I do believe she would benefit from antiresorptive therapy in terms of reducing future fracture risk. Since she was on Fosamax from 6811-0589. I, this is around 8 year of therapy so I would stay away from bisphosphonate and would consider Prolia for her. Her CTX is at 400s so not very elevated. However based on the bone density scan I still think she would benefit from antiresorptive therapy. I counseled regarding the mechanism of action, route of administration, common side effects as well as black box warnings particularly osteonecrosis of the jaw and atypical femur fracture of Prolia. I will wait for her vitamin-D levels to come back, we will 1st optimize her vitamin-D before starting her on Prolia. Discussed with the patient: Common side effects of Prolia include muscle and joint aches and pains, low calcium level which may happen if calcium and vitamin D intake is inadequate. So please need to take calcium and vitamin D regularly. Other side effects may include skin rash, skin or bladder infection. Very rare side effects include osteonecrosis of the jaw and femur fractures. Should you experience any side effects with Prolia, please let us know. Plan: -continue vitamin-D 2500 units daily +800 units in calcium supplement -continue 3-4 servings of calcium rich foods daily -encouraged weight-bearing exercise with walking at least 25 to 30 minutes daily -ordered blood work with repeat calcium, vitamin-D, PTH levels -if vitamin-D levels have normalized, we will consider starting Prolia, if not normal we will wait for vitamin-D levels to be optimized before we begin therapy. -follow up in 12 weeks (2) Hypothyroxinemia: Code(s): R79.89 - Other specified abnormal findings of blood chemistry Category: Medical Plan: During chart review also noticed the labs from April 2023 showed a low free T4 level of 0.64 with normal TSH of 2.37. Isolated hypothyroxinemia. Unclear significance. Sometimes this can be hereditary, other times it can be due to abnormalities and protein such as nephrotic syndrome. Her kidney function is normal. Can sometimes be seen in other endocrine disorders such as acromegaly she does not have any features of that. Can be seen in Cherise's syndrome, I am already checking a 24 hour urine cortisol level while evaluating secondary causes of osteoporosis. Similar labs from 2019. Labs repeated 04/09/2024 show free T4 by dialysis was also low at 0.7, however normal range starts at 0.9, so not too low. TSH still normal 1.2. Total T3 normal 113, thyroglobulin normal at 15.4 with T4 binding globulin also normal at 29.1. Normal albumin. Normal total T4 6.1. Some medications can also cause this but I do not see any antiseizure meds, heparin on her list. Since levels are borderline low, and she does not have any symptoms and other all parameters are normal, we will stop chasing this. This could be just a normal variation for her. Plan I spent 30 minutes in reviewing the record, seeing the patient and documenting in the medical record. Orders: Orders Albumin Level Today M81.0 - Age-related osteoporosis without current pathological fracture Calcium Today M81.0 - Age-related osteoporosis without current pathological fracture Parathyroid Hormone Intact Today M81.0 - Age-related osteoporosis without current pathological fracture Vitamin D 25-OH Total Today M81.0 - Age-related osteoporosis without current pathological fracture Basic Metabolic Panel Today M81.0 - Age-related osteoporosis without current pathological fracture Patient Instructions: Continue vitamin D supplements 2500 units daily Continue 3-4 servings of calcium rich foods daily like milk, yogurt ,cheese Walk 20 to 25 mins daily at least slowly going up to 30 mins daily Do blood work today, if your vitamin D is improved we will start you on a 6 monthly injection called Prolia Prolia Common side effects of Prolia include muscle and joint aches and pains, low calcium level which may happen if calcium and vitamin D intake is inadequate. So please need to take calcium and vitamin D regularly. Other side effects may include skin rash, skin or bladder infection. Very rare side effects include osteonecrosis of the jaw and femur fractures. Should you experience any side effects with Prolia, please let us know. It is important that once you are started on this medicine you come back every 6 months for the injection, you CAN NEVER MISS THIS MEDICATION without asking us , otherwise bone density falls rapidly resulting in fractures PLEASE GO HOME AND CHECK HOW MUCH CALCIUM AND VITAMIN D IS HER MEDICATIONS AND CALL OUR OFFICE TO LET US KNOW Continuar con suplementos de vitamina D 2500 unidades diarias. Contin?e con 3 o 4 porciones diarias de alimentos ricos en calcio holly leche, yogur y queso. Camine de 20 a 25 minutos diarios al menos lentamente y aumente hasta 30 minutos diarios. H?gase un an?lisis de milana hoy, si walter vitamina D mejora, comenzaremos con shiva inyecci?n mensual 6 llamada Prolia. Prolia Los efectos secundarios comunes de Prolia incluyen joão y molestias musculares y articulares, niveles bajos de calcio que pueden ocurrir si la ingesta de calcio y vitamina D es inadecuada. Por lo tanto, debe ekaterina calcio y vitamina D con regularidad. Otros efectos secundarios pueden incluir erupci?n cut?benjamin, infecci?n de la piel o de la vejiga. Los efectos secundarios muy raros incluyen osteonecrosis de la meghan?bula y fracturas de f?mur. Si experimenta alg?n efecto secundario con Prolia, h?ganoslo saber. Es importante que shiva vez que comience a ekaterina pat medicamento regrese cada 6 meses para recibir la inyecci?n, NUNCA PUEDE PERDER PAT MEDICAMENTO sin consultarnos, de lo contrario, la densidad ?sea r?pidamente y provocar fracturas. POR FAVOR, VUELVA A CASA Y COMPRUEBE CU?NTO CALCIO Y VITAMINA D SON ALBERTO MEDICAMENTOS Y LLAME A NUESTRA OFICINA PARA INFORMARNOS Coding Level of Care Code Est Pt Level 4 (33862) Diagnoses Age-related osteoporosis without current pathological fracture M81.0 Osteoporosis type: age-related Presence of current pathological fracture: without current pathological fracture Hypothyroxinemia R79.89 Time Spent (min) 30
[2024-07-07 12:40] VITALS: BP 120/58; PULSE 68; BMI 25.1
--- OUTSIDE RECORDS SUMMARY | 2024-07-07 13:56 | XMS_ITS | Encounter Summary ---
Author Organization [employer] Address [address] [place] [address] Care Team Providers Care Ticketing Agent Name Role Phone Teresita Munroe DO Primary Care Provider Encounter Details Date Type Department Care Team (Late st Contact Info) Description 06/15/2022 Abstract [facility] [address] [place] [address] Jelena Morgan DDS [address] [place] [address] Social History Tobacco Use Types Packs/Day Years Used Date Smoking Tobacco: Never Passive Smoke Exposure: Never Smokeless Tobacco: Never Alcohol Use Standard Drinks/Week Comments Never 0 (1 standard drink = 0.6 oz pur e alcohol) Comments Unknown Sex and Gender Information Value Date Recorded Sex Assigned at Female 04/03/2022 10:18 AM EDT Legal Sex Female 10:18 AM EDT Gender Identity Female 04/03/2022 10:18 AM EDT Sexual Orientation Straight 04/03/2022 10 :18 AM EDT COVID-19 Exposure Response Date Recorded In the last 10 days, have yo u been in contact with someone who was confirmed or suspected to have Coronavirus/COVID-19? No / Unsure 06/12/2022 12:52 PM EST documented as of this encounter Plan of Treatment Not on file documented as of this encounter Visit Diagnoses Not on filedocumented in this encounter Care Teams Ticketing Agent Relationship Specialty Start Date End Date Teresita Munroe DO [address] [place] [address] PCP - General Family Medicine 07/28/14 documented as of this encounter
--- OUTSIDE RECORDS SUMMARY | 2024-07-07 13:56 | XMS_ITS | Encounter Summary ---
Author Organization [email or web address] Address [address] [place] [address] Care Team Providers Care Custom Bike Builder Name Role Phone Teresita Munroe DO Primary Care Provider [phone] Encounter Details Date Type Department Care Team ([facility] st Contact Info) Description 08/03/2022 Abstract [facility] [address] [place] [address] Bhanu Barakat DDS [address] [place] [address] Social History Tobacco Use Types Packs/Day Years [...] suspected to have Coronavirus/COVID-19? No / Unsure 07/28/2022 8:25 AM EST documented as of this encounter Plan of Treatment Not on file documented as of this encounter Visit Diagnoses Not on filedocumented in this encounter Care Teams Custom Bike Builder Relationship Specialty Start Date End Date Teresita Munroe DO [address] [place] [address] PCP - General Family Medicine 07/28/14 documented as of this encounter
--- OUTSIDE RECORDS SUMMARY | 2024-07-07 13:57 | XMS_ITS | Encounter Summary ---
Author Organization [employer] Address [address] [facility] 7t [place] [address] Care Team Providers Care Ripening Room Operator Name Role Phone Teresita Munroe DO Primary Care Provider +1- [phone] Reason for Visit * Reason Onset Date Comments Med Refill 05/11/2023 Encounter Details Date Type Department Care Team (Late st Contact Info) Description 05/11/2023 Refill [facility] MED[facility]INE [address] [place] [address] Teresita Munroe DO [address] [place] [address] Chronic pain of both shoulders (Primary Dx) Social History Tobacco Use Types Packs/Day Years Used Date Smoking Tobacco: Never Passive Smoke Exposure: Never Smokeless Tobacco: Never Alcohol Use Standard Drinks/Week Comments Never 0 (1 standard drink = 0.6 oz pur e alcohol) Housing Stability Answer Date Recorded What is your housing situation today? I have poly rachel 03/21/[address] you li ve. Do you have problems with any of the following? None of the above 03/21/2023 Food Insecurity Answer Date Recorded Within the past 12 months, y ou worried that your food would run out before you got money to buy more: Never True 03/21/2023 Within the past 12 months,th e food you bought just didn't last and you didn't have enough money to get more: Never True Transportation Answer Date Recorded In the past 12 months, has l ack of transportation kept you from medical appts, meetings, work or from getting things needed for daily living? Yes, it has kept me from medical appointments or getting medications. 03/13/2023 Utilities Answer Date Recorded In the past 12 months, has t he electric, gas, oil or water company threatened to shut off services in your home? No 03/21/2023 Depression Answer Date Recorded Patient Health Questionnaire-2 Score 0 10/17/2022 Comments Unknown Sex and Gender Information Value Date Recorded Sex Assigned at Female 04/03/2022 10:18 AM EDT Legal Sex Female 10:18 AM EDT Gender Identity Female 04/03/2022 10:18 AM EDT Sexual Orientation Straight 04/03/2022 10 :18 AM EDT documented as of this encounter Miscellaneous Notes * Telephone Encounter - Samantha Ortiz - 05/11/2023 11:12 AM EST Tc from [facility] requesting med refill on; traMADol (Ultram) 50 MG tablet [facility] [address] [place] [address] documented in this encounter Plan of Treatment Not on file documented as of this encounter Visit Diagnoses Diagnosis Chronic pain of both shoulders- Primary documented in this encounter Care Teams Ripening Room Operator Relationship Specialty Start Date End Date Teresita Munroe DO [address] [place] [address] PCP - General Family Medicine 07/28/14 documented as of this encounter
--- OUTSIDE RECORDS SUMMARY | 2024-07-07 13:57 | XMS_ITS | Encounter Summary ---
Author Organization [employer] Address [address] [facility] 7t [place] [address] Care Team Providers Care Loan Supervisor Name Role Phone LudwigTeresita Primary Care Provider +[phone] Encounter Details Date Type Department Care Team (Late st Contact Info) Description 06/16/2024 Orders Only [facility] External Provider, [facility] Social History Tobacco Use Types Packs/Day Years Used Date Smoking Tobacco: Never Passive Smoke Exposure: Never Smokeless Tobacco: Never Alcohol Use Standard Drinks/Week Comments Never 0 (1 standard drink = 0.6 oz pur e alcohol) Depression Answer Date Recorded Patient Health Questionnaire-9 Score 5 01/22/2024 Patient Health Questionnaire-9 Score 5 01/22/2024 Last PHQ-9: Questionnaire Data Not on file 0 01/22/2024 Housing Stability Answer Date Recorded What is your housing situation today? I have poly rachel 01/08/[address] you li ve. Do you have problems with any of the following? None of the above 01/08/2024 Food Insecurity Answer Date Recorded Within the past 12 months, y ou worried that your food would run out before you got money to buy more: Never True 01/08/2024 Within the past 12 months,th e food you bought just didn't last and you didn't have enough money to get more: Never True 11/2023 Transportation Answer Date Recorded In the past 12 months, has l ack of transportation kept you from medical appts, meetings, work or from getting things needed for daily living? No 01/08/2024 Utilities Answer Date Recorded In the past 12 months, has t he electric, gas, oil or water company threatened to shut off services in your home? No 01/08/2024 Depression Answer Date Recorded Patient Health Questionnaire-2 Score 1 01/22/2024 Internet Access Answer Date Recorded Internet Access Q1 No 02/04/2024 Internet Access Q2 I do not want or need it 07/2023 Comments Unknown Sex and Gender Information Value Date Recorded Sex Assigned at Female 04/03/2022 10:18 AM EDT Legal Sex Female 10:18 AM EDT Gender Identity Female 04/03/2022 10:18 AM EDT Sexual Orientation Straight 04/03/2022 10 :18 AM EDT documented as of this encounter Plan of Treatment Not on file documented as of this encounter Procedures Procedure Name Priority Date/Time Associated Diagnosis Comments US ABDOMINAL AORTIC ANEURYSM Routine 06/17/2024 11:23 AM EST documented in this encounter Results * US ABDOMINAL AORTIC ANEURYSM (06/17/2024 11:23 AM EST) Anatomical Region Laterality Modality Abdomen Ultrasound 06/17/2024 11:2 3 AM EST Narrative 06/17/2024 11:24 AM EST ? [facility] ?[address] ? [place] [address] ? Ultrasound Report ? Signed ? Patient: Aspen Farah ?MR#: [id number] ?? 4 ? : 1950 ?Acct:[id number] ? Age/Sex: 74 / F ?ADM Date: 06/16/24 ? Loc: HO.HMGCX ? Attending Dr: Daron Jones MD ? Ordering Physician: Daron Jones MD ?? Date of Service: 06/16/24 ?? Procedure(s): US abdominal aortic aneurysm ?? Accession Number(s): [id number] ? cc: Teresita Munroe DO; Daron Jones MD ? CLINICAL HISTORY: I71.43 - Infrarenal abdominal aortic aneurysm, without rupture ? US abdominal aorta with color Doppler ? Comparison: Images from 03/21/2023 were not available for comparison at ?? the time of this interpretation. ? Findings: ? Aorta diameter proximal: 2.3 x 2.3 cm. ?? Aorta diameter mid: 2.2 x 2.2 cm. ?? Aorta diameter distal: 4.1 x 3.9 cm.This previously measured 4.0 x 3.8 per ?? technologist worksheet ? Right common iliac artery maximum diameter: 1.0 x 1.1 cm. ?? Left common iliac artery maximum diameter: 1.2 x 1.2 cm. ? Normal color Doppler. ? Impression: ?? 1. Fusiform infrarenal abdominal aortic aneurysm as described. Minimal ?? calcified atherosclerotic disease. ? This document has been electronically signed by: Roger Brar MD on ?? 06/17/2024 11:23:25 ? Dictated By: ?Roger Brar MD ? Signed By: ?<Electronically signed by Roger Brar MD in OV> ?06/17/24 1124 ? DD/ 22 ? TD/TT: 06/17/24 1123 ? Warp Dyeing Tender: ? Procedure Note [place], Image - 06/17/2024 [facility] [address] [place] [address] [place] [address] Ultrasound Report Signed Patient: Shirin Farah#: [id number] 4 : 9Acct:[id number] Age/Sex: 74 / FADM Date: 06/16/24 Loc: HO.HMGCX Attending Dr: Daron Jones MD Ordering Physician: Daron Jones MD Date of Service: 06/16/24 Procedure(s): US abdominal aortic aneurysm Accession Number(s): [id number] cc: Teresita Munroe DO; Daron Jones MD CLINICAL HISTORY: I71.43 - Infrarenal abdominal aortic aneurysm, withoutrupture US abdominal aorta with color Doppler Comparison: Images from 03/21/2023 were not available for comparison at the time of this interpretation. Findings: Aorta diameter proximal: 2.3 x 2.3 cm. Aorta diameter mid: 2.2 x 2.2 cm. Aorta diameter distal: 4.1 x 3.9 cm.This previously measured 4.0 x 3.8 per technologist worksheet Right common iliac artery maximum diameter: 1.0 x 1.1 cm. Left common iliac artery maximum diameter: 1.2 x 1.2 cm. Normal color Doppler. Impression: 1. Fusiform infrarenal abdominal aortic aneurysm as described. Minimal calcified atherosclerotic disease. This document has been electronically signed by: Roger Brar MD on 06/17/2024 11:23:25 Dictated By: Roger Brar MD Signed By: <Electronically signed by Roger Brar MD in OV> 06/17/24 1124 DD/ 1123 TD/TT: 06/17/24 1123 Warp Dyeing Tender: [facility] External Provider IMG US PROCEDURES Final Result documented in this encounter Visit Diagnoses Not on filedocumented in this encounter Additional Health Concerns Assessment Noted Time PHQ-9 Depression Total Score: 5 01/22/20 24 9:55 AM EDT documented as of this encounter Care Teams Loan Supervisor Relationship Specialty Start Date End Date Teresita Munroe DO [address] [place] [address] PCP - General Family Medicine 07/28/14 documented as of this encounter
--- OUTSIDE RECORDS SUMMARY | 2024-07-07 13:57 | XMS_ITS | Encounter Summary ---
Author Organization [employer] Address [address] [facility] 7t [place] [address] Care Team Providers Care Leasing Consultant Name Role Phone Kamille Munroenifer Primary Care Provider + [phone] Encounter Details Date Type Department Care Team ([facility] st Contact Info) Description 09/14/2023 Orders Only [facility] MEDICINE [address] [place] [address] ProviderFlor MD Social History Tobacco Use Types Packs/Day Years [...] Procedure Name Priority Date/Time Associated Diagnosis Comments HM COLONOSCOPY Routine 11/10/2020 10:20 AM EDT HM COLONOSCOPY Routine 11/03/2014 10:26 AM EDT documented in this encounter Results * Hm Colonoscopy (11/10/2020 10:20 AM EDT) us Historical Provider HEALTH MAINTENANCE Final Result * Hm Colonoscopy (11/03/2014 10:26 AM EDT) us Historical Provider HEALTH MAINTENANCE Final Result documented in this encounter Visit Diagnoses Not on filedocumented in this encounter Care Teams Leasing Consultant Relationship Specialty Start Date End Date Teresita Munroe DO [address] [place] [address] PCP - General Family Medicine 07/28/14 documented as of this encounter
--- OUTSIDE RECORDS SUMMARY | 2024-07-07 13:57 | XMS_ITS | Encounter Summary ---
Author Organization [employer] Address [address] [place] [address] 7t [place] [address] Care Team Providers Care Manufacturing Machine Operator Name Role Phone Teresita Munroe DO Primary Care Provider [phone] Encounter Details Date Type Department Care Team (Latest Contact Info) Description 12/22/2021 Abstract [facility] CONVERSIONS Dental, Provider, DDS Social History Tobacco Use Types Packs/Day Years Used Date Smoking Tobacco: Never Assessed Comments Unknown Sex and Gender Information Value [...] on filedocumented in this encounter Care Teams Manufacturing Machine Operator Relationship Specialty Start Date End Date Teresita Munroe DO [address] [place] [address] PCP - General Family Medicine 07/28/14 documented as of this encounter
--- OUTSIDE RECORDS SUMMARY | 2024-07-07 13:57 | XMS_ITS | Encounter Summary ---
Author Organization [employer] Address 75 [facility] 7t [place] [address] Care Team Providers Care Betting Clerks Name Role Phone Teresita Munroe DO Primary Care Provider [phone]- [phone] Reason for Visit * Reason Comments Med Refill Encounter Details Date Type Department Care Team ([facility] st Contact Info) Description 06/12/2024 Refill [facility] MEDICINE [address] [place] [address] Teresita Munroe DO [address] [place] [address] Chronic obstructive pulmonary disease, unspecified COPD type (CMS/HCC); 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 complication, unspecified whether alf insulin use (CMS/[facility]); Osteopenia, unspecified location Social History Tobacco Use Types Packs/Day Years [...] of this encounter Visit Diagnoses Diagnosis Chronic obstructive pulmonary disease, unspecified COPD type (CMS/[facility]) 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 complication, unspecified whether intermodal customer service insulin use ([facility]) Osteopenia, unspecified location documented in this encounter Additional Health Concerns Assessment Noted Time PHQ-9 Depression Total Score: 5 01/22/20 24 9:55 AM EDT documented as of this encounter Care Teams Betting Clerks Relationship Specialty Start Date End Date Teresita Munroe DO [address] [place] [address] PCP - General Family Medicine 07/28/14 documented as of this encounter
--- OUTSIDE RECORDS SUMMARY | 2024-07-07 13:57 | XMS_ITS | Encounter Summary ---
Author Organization [employer] Address 75 [facility] 7t [place] [address] Care Team Providers Care Puppet Engineer Name Role Phone oLrenTeresita blanco Primary Care Provider [phone]- [phone] Reason for Visit * Reason Comments Med Refill Encounter Details Date Type Department Care Team ([facility] st Contact Info) Description 06/12/2024 Refill [facility] [address] [place] [address] Charmaine Rowland MD [address] [place] [address] 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 complication, unspecified whether longterm insulin use ([facility]); Osteopenia, unspecified location Social History Tobacco Use [...] is your housing situation today? I have polyrenae rachel 01/08/[address] you [...] as of this encounter Visit Diagnoses Diagnosis 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 complication, unspecified whether rat exterminator insulin use ([facility]) Osteopenia, unspecified location documented in this encounter Additional Health Concerns Assessment Noted Time PHQ-9 Depression Total Score: 5 01/22/20 24 9:55 AM EDT documented as of this encounter Care Teams Puppet Engineer Relationship Specialty Start Date End Date Teresita Munroe DO [address] [place] [address] PCP - General Family Medicine 07/28/14 documented as of this encounter
--- OUTSIDE RECORDS SUMMARY | 2024-07-07 13:57 | XMS_ITS | Encounter Summary ---
Author Organization [employer] Address [address] [facility] 7t [place] [address] Care Team Providers Care University Demonstrator Name Role Phone Teresita Munroe DO Primary Care Provider [phone]- [phone] Reason for Visit * Reason Comments Med Refill Encounter Details Date Type Department Care Team ([facility] st Contact Info) Description 01/03/2024 Refill [facility] MED & PEDS [address] [place], [place] [id number] Teresita Munroe DO [address] [place] [address] 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 complication, unspecified whether care home insulin use (CMS/HCC); Osteopenia, unspecified location Social History Tobacco Use [...] 2 diabetes mellitus without complication, unspecified whether labor trainer insulin use ([facility]) Osteopenia, unspecified location documented in this encounter Care Teams University Demonstrator Relationship Specialty Start Date End Date Teresita Munroe DO [address] [place] [address] PCP - General Family Medicine 07/28/14 documented as of this encounter
--- OUTSIDE RECORDS SUMMARY | 2024-07-07 13:57 | XMS_ITS | Encounter Summary ---
Author Organization [employer] Address 75 [facility] 7t [place] [address] Care Team Providers Care Auction Assistant Name Role Phone Teresita Munroe DO Primary Care Provider Encounter Details Date Type Department Care Team (Latest Contact Info) Description 2019 Abstract [facility] CONVERSIONS Dental, Provider, DDS Social History Tobacco [...] on filedocumented in this encounter Care Teams Auction Assistant Relationship Specialty Start Date End Date Teresita Munroe DO [address] [place] [address] PCP - General Family Medicine 07/28/14 documented as of this encounter
--- OUTSIDE RECORDS SUMMARY | 2024-07-07 13:57 | XMS_ITS | Encounter Summary ---
Author Organization [employer] Address [address] [facility] 7t [place] [address] Care Team Providers Care Fish Butcher Name Role Phone Teresita Munroe DO Primary Care Provider [phone]- [phone] Reason for Visit * Reason Comments Med Refill Encounter Details Date Type Department Care Team ([facility] st Contact Info) Description 07/02/2023 Refill [facility] MEDICINE [address] [place] [address] Teresita Munroe DO [address] [place] [address] Chronic obstructive pulmonary disease, unspecified COPD type (CMS/HCC) Social History Tobacco Use Types Packs/Day Years [...] Chronic obstructive pulmonary disease, unspecified COPD type (CMS/HCC) documented in this encounter Care Teams Fish Butcher Relationship Specialty Start Date End Date Teresita Munroe DO [address] [place] [address] PCP - General Family Medicine 07/28/14 documented as of this encounter
--- OUTSIDE RECORDS SUMMARY | 2024-07-07 13:57 | XMS_ITS | Encounter Summary ---
Author Organization [employer] Address [address] [facility] 7t [place] [address] Care Team Providers Care Flare Maker Name Role Phone Teresita Munroe DO Primary Care Provider [phone] Reason for Visit * Reason Onset Date Comments Med Refill 06/26/2024 Reschedule TRAIN OPERATOR appt missed 05/09/24 06/26/2024 Encounter Details Date Type Department Care Team (Late st Contact Info) Description 06/26/2024 Refill [facility] MEDICINE [address] [place] [address] Teresita Munroe DO [address] [place], [place] [phone] Chronic pain of both shoulders (Primary Dx) [...] as of this encounter Miscellaneous Notes * Addendum Note - Kurt Beach RN - 06/26/2024 3:10 PM ESTAddended by: KURT [place]ACH on: 06/26/2024 03:10 PM Modules accepted: Orders * Telephone Encounter - Kurt Beach RN - 06/26/2024 2:20 PM EST Pt was a NCNS for Tele TRAIN OPERATOR RV appt, 05/09/24. Return TC via S#[id number], no answer. Left message asking her to call back. * Telephone Encounter - Sierra Porter - 06/26/2024 1:14 PM EST Leonora walked in requesting if you can call her at [phone] she wants to rs aspen appt from 05/09/24 She also asked for a refill on Tramadol 50 mg. documented in this encounter Plan of Treatment Not on file documented as of this encounter Visit Diagnoses Diagnosis Chronic pain of both shoulders- Primary documented in this encounter Additional Health Concerns Assessment Noted Time PHQ-9 Depression Total Score: 5 01/22/20 24 9:55 AM EDT documented as of this encounter Care Teams Flare Maker Relationship Specialty Start Date End Date Teresita Munroe DO [address] [place] [address] PCP - General Family Medicine 07/28/14 documented as of this encounter
--- OUTSIDE RECORDS SUMMARY | 2024-07-07 13:57 | XMS_ITS | Encounter Summary ---
Author Organization [email or web address] Address [address] [facility] 7t [place] [address] Care Team Providers Care Kalsominer Name Role Phone Teresita Munroe DO Primary Care Provider [phone] Reason for Visit * Reason Onset Date Comments Med Refill 06/25/2024 Encounter Details Date Type Department Care Team ([facility] st Contact Info) Description 06/25/2024 Refill [facility] CHC MED & PEDS [address] [place] [address] Teresita Munroe DO [address] [facility] [place] [address] Chronic pain of both shoulders (Primary Dx) [...] Addendum Note - Kurt Beach RN - 06/25/2024 11:49 AM ESTAddended by: KURT BEACH on: 06/25/2024 11:49 AM Modules accepted: Orders * Telephone Encounter - Jia Escobar LPN - 06/25/2024 10:50 AM EST Received request on Tramadol 50 ng documented in this encounter Plan of Treatment Not on file documented as of this encounter Visit Diagnoses Diagnosis Chronic pain of both shoulders- Primary documented in this encounter Additional Health Concerns Assessment Noted Time PHQ-9 Depression Total Score: 5 01/22/20 24 9:55 AM EDT documented as of this encounter Care Teams Kalsominer Relationship Specialty Start Date End Date Teresita Munroe DO [address] [place] [address] PCP - General Family Medicine 07/28/14 documented as of this encounter
--- OUTSIDE RECORDS SUMMARY | 2024-07-07 13:57 | XMS_ITS | Clinical Summary ---
Author Organization [employer] Address [address] [place] [address] [address] [place] [address] Care Team Providers Care Professor Of German Name Role Phone LudwigTeresita Primary Care Provider Allergies Active Allergy Reactions Criticality Noted Date Comments Shellfish Allergy Hives 07/13/2022 Medications aspirin 81 MG EC tablet Take 1 tablet by mouth at bed time. 02/10/20 22 Active docusate sodium (Colace) 100 MG capsule Take 1 capsule by mouth every 12 (twelve) hours. 08/10/19 22 Active DULoxetine (Cymbalta) [address] capsule Take 1 capsule by oral route twice daily Active evolocumab (Repatha SureClick) 140 MG/ML injection Inject 1 mL under the skin every 14 (fourteen) days. Active fluticasone (Flonase Allergy Relief) 50 MCG/ACT nasal spray spray 2 spray by intranasal route every day in each nostril as needed 11/26/19 19 Active sulfaSALAzine (Azulfidine) 500 MG tablet take 1 tablet by oral route 4 times every day 04/05/20 22 Active clopidogrel (Plavix) 75 MG tablet Take 1 tablet by oral route every day Active ezetimibe (Zetia) 10 MG tablet Take 1 tablet by oral route once daily Active gabapentin (Neurontin) 400 MG capsule Take 1 capsule by oral route once daily Active QUEtiapine (SEROquel) 100 MG tablet Take 1 tablet by oral route daily Active busPIRone (Buspar) 10 MG tablet Take 1 tablet by oral route twice daily Active Umeclidinium [place] (Incruse Ellipta) 62.5 MCG/ACT aerosol powderIndicati ons:Chronic obstructive pulmonary disease, unspecified COPD type (CMS/HCC) Inhale 1 puff in the morning. 30 each 11 06/09/19 23 Active sodium chloride (Rembrandt Nasal [place]) 0.65 % nasal sprayIndicatio ns:COVID-19 1-2 sprays on each nostril every 2-3 hours as needed for nasal congestion 30 mL 1 09/05/19 23 Active gabapentin (Neurontin) 300 MG capsule 09/30/19 23 Active ketorolac (Acular) 0.5 % ophthalmic solution 08/04/19 23 Active Ventolin HFA 108 (90 Base) MCG/ACT inhalerIndicat ions:Chronic obstructive pulmonary disease, unspecified COPD type (CMS/HCC) INHALE 2 PUFFS EVERY 6 HOURS NEEDED FOR WHEEZING OR SHORTNESS OF BREATH. 18 g 3 12/29/19 23 Active methotrexate 2.5 MG tablet 02/08/20 23 Active Diclofenac Sodium 1 % gel Apply 2 g topically if needed in the morning, at noon, in the evening, and at bedtime (pain). 150 g 3 09/24/19 24 Active naloxone (Narcan) 4 mg/0.1 mL nasal sprayIndicatio ns:Chronic pain of both shoulders Administer 1 spray (4 mg) into affected nostril(s) if needed for opioid reversal. May repeat every 2-3 minutes if needed, alternating nostrils, until medical assistance becomes available. 2 each 10/11/19 24 025 Active ipratropium-al buterol (Duo-Neb) 0.5-2.5 mg/3 mL nebulizer solution INHALE 1 VIAL (3ML) VIA NEBULIZER 4 TIMES A DAY IN THE MORNING, AT NOON, IN THE EVENING, AND AT BEDTIME NEEDEDFOR COUGH OR SHORTNESS OF BREATH. 180 mL 3 11/22/19 24 Active rosuvastatin (Crestor) 40 MG tablet @@ TAKE 1 TABLET BY MOUTH AT BEDTIME. 28 tablet 11/29/19 24 Active midodrine (Proamatine) 2.5 MG tabletIndicati ons:Hypotensio n, unspecified hypotension type @@ TAKE 1 TABLET BY MOUTH TWICE DAILY 56 tablet 11/29/19 24 Active montelukast (Singulair) 10 MG tablet TAKE 1 TABLET BY MOUTH IN THE EVENING. 28 tablet 11/29/19 24 Active fenofibrate (Triglide) 160 MG tablet @@TAKE 1 TABLET BY MOUTH DAILY. 28 tablet 11/29/19 24 Active cholecalcifero l VITAMIN D (Vitamin D-3) 50 MCG (1999) tablet @@TAKE 1 TABLET BY MOUTH DAILY. 28 tablet 11/29/19 24 Active fexofenadine (Ramya) 180 MG tablet @@TAKE 1 TABLET BY MOUTH DAILY IN THE MORNING. 28 tablet 11/29/19 24 Active GNP 8 Hour Arthritis Relief 650 MG ER tabletIndicati ons:Rheumatoid arthritis, involving unspecified site, unspecified whether rheumatoid factor present (CMS/HCC) TAKE 1 TABLET BY MOUTH EVERY 8 HOURS NEEDED FOR MILD PAIN. DO NOT CURSH, CHEW. OR SPLIT. 60 tablet 05/20/20 24 Active Fluticasone-Sa lmeterol 500-50 MCG/ACT aerosol powderIndicati ons:Chronic obstructive pulmonary disease, unspecified COPD type (CMS/HCC) INHALE 1 PUFF BY MOUTH 2 TIMES DAILY 60 each 06/13/19 25 Active metFORMIN XR (Glucophage-XR ) 500 MG 24 hr tabletIndicati ons: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 complication, unspecified whether oil heaterman insulin use (CMS/HCC) TAKE 1 TABLET BY MOUTH TWICE DAILY WITH MEALS 56 tablet 06/13/19 25 Active Calcium Carb-Cholecalc iferol (Calcium + Vitamin D3) 600-10 MG-MCG tabletIndicati ons:Osteopenia , unspecified location Take 1 tablet by mouth 2 times daily. 56 tablet 06/13/19 25 Active Fluticasone-Sa lmeterol 500-50 MCG/ACT aerosol powderIndicati ons:Chronic obstructive pulmonary disease, unspecified COPD type (CMS/HCC) INHALE 1 PUFF BY MOUTH 2 TIMES DAILY 60 each 12/18/19 24 025 Discontinued metFORMIN XR (Glucophage-XR ) 500 MG 24 hr tabletIndicati ons: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 complication, unspecified whether alf insulin use (CMS/HCC) TAKE 1 TABLET BY MOUTH TWICE DAILY WITH MEALS. 56 tablet 01/01/20 24 025 Discontinued(R eorder (will not trigger notification to Pharmacy)) Calcium + Vitamin D3 600-10 MG-MCG tabletIndicati ons:Osteopenia , unspecified location TAKE 1 TABLET BY MOUTH TWICE DAILY 56 tablet 5 01/01/20 24 025 Discontinued(R eorder (will not trigger notification to Pharmacy)) traMADol (Ultram) 50 MG tabletIndicati ons:Chronic pain of both shoulders Take 1 tablet (50 mg) by mouth every 6 (six) hours if needed for severe pain for up to 7 days. 28 tablet 06/26/19 25 025 traMADol (Ultram) 50 MG tabletIndicati ons:Chronic pain of both shoulders Take 1 tablet (50 mg) by mouth every 8 (eight) hours if needed for severe pain for up to 7 days. 21 tablet 06/26/19 25 025 Active Problems Problem Noted Date Diagnosed Date Osteoporosis without current pathological fractu re 09/24/2023 Assessment & Plan (09/24/2023 3:01 PM EDT): -DEXA with osteoporosis OCTOBER 2020 -cont vit D supplementation -review endo f/u next visit Chronic pain of both shoulders 09/24/2023 Assessment & Plan (09/24/2023 3:04 PM EDT): s/p TSA JAN 2022 -encouraged standing doses of tylenol -cont lidocaine patches -encouraged diclofenac gel -cont tramadol QID improved pain control -f/u w/ ortho prn Healthcare maintenance 09/24/2023 Assessment & Plan (09/24/2023 3:06 PM EDT): -s/p flu vaccine FEB 2023 -she declines COVID vaccine -encouraged RSV vaccine -s/p Tdap DEC 2012, repeat today -s/p pneumovax SEP 2016 -s/p PCV20 FEB 2023 -Hep A immune -s/p Hep B vaccine -s/p zoster vaccine APR 2015 -s/p prevnar APR 2015 -s/p shingrix #02 AUG 2021, encouraged dose #2 -pap smear wnl 2005, 2009 and 2012 with no h/o abnml pap smears, no need for further screening -mammo BIRADS 05 JUL 2023 -DEXA with osteoporosis OCTOBER 2020 -colonoscopy with hyperplastic polyps NOV 2020, repeat 5 years -STI/HIV screen negative DEC 2017 Borderline abnormal TFTs 09/24/2023 Assessment & Plan (09/24/2023 3:05 PM EDT): TFTs nml FEB 2023 -will continue to monitor Mild cognitive impairment 02/22/2023 Edentulous alveolar ridge 08/22/2022 Aseptic necrosis of head of humerus 05/22/2022 Obstructive sleep apnea 05/22/2022 Rheumatoid arthritis 05/22/2022 Assessment & Plan (09/24/2023 3:00 PM EDT): Seronegative RA with continued hand pain and swelling -cont current MTX weekly as per rheum -cont tx with humira -f/u with rheumatology as scheduled Type 2 diabetes mellitus 03/25/2018 Assessment & Plan (09/24/2023 2:54 PM EDT): A1c at goal -cont metformin daily -cont regular FS monitoring -cont aspirin and crestor daily -Cr/GFR and urine microalbumin nml OCTOBER 2022->repeat prior to next visit -BP wnl -s/p optho eval 2022 with [facility], will get copy of most recent eval -foot exam next visit* Abdominal aortic aneurysm 03/04/2015 Assessment & Plan (09/24/2023 2:59 PM EDT): Infrarenal AAA, 3.5cm x 3.5cm OCTOBER 2021 -repeat as per vascular -f/u with vascular as scheduled, due JUN 2024 Chronic obstructive lung disease 03/04/2015 Assessment & Plan (09/24/2023 2:57 PM EDT): Stable -cont advair BID -cont incruse daily -cont singulair daily -cont albuterol as needed -cont ramya and flonase daily -f/u with pulm prn Dysthymia 03/04/2015 Generalized anxiety disorder 03/04/2015 Assessment & Plan (09/24/2023 2:56 PM EDT): -she denies any current SI/HI -she has the number for crisis and contracts for safety -cont current med regimen as per psychiatry -f/u with therapist and psychiatrist as scheduled Mixed hyperlipidemia 03/04/2015 Assessment & Plan (09/24/2023 2:53 PM EDT): Slight bump in LDL OCTOBER 2022 -cont current med regimen -check lipids prior to next visit Peripheral arterial occlusive disease 03/04/2015 Fatty liver 03/04/2015 Assessment & Plan (09/24/2023 2:55 PM EDT): -abd US with echogenic liver, no focal lesion MAR 2023 -AFP nml AUG 2020 and LFTs nml OCTOBER 2022->repeat with fasting labs -Hep A immune -s/p Hep B vaccine Vitamin D deficiency 03/04/2015 Resolved Problems Problem Noted Date Diagnosed Date Resolved Date Asthma exacerbation 06/01/2022 10/18/19 Assessment & Plan (06/01/2022 11:18 AM EST): Was improved with prednisone but course likely needs to be extended. She completed 5 days with rebound symptoms. Prednisone taper given. No indications for antibiotics at this time. Encounters Date Type Department Care Team Description 06/26/2024 Refill [facility] [address] [place] [address] Teresita Munroe DO Chronic pain of both shoulders (Primary Dx) 06/25/2024 Refill [facility] [address] [place], [place] [phone] Teresita Munroe DO Chronic pain of both shoulders (Primary Dx) 06/16/2024 Orders Only [facility] External Provider, [facility] 06/12/2024 Refill [facility] [address] [place] [address] Teresita Munroe DO Chronic obstructive pulmonary disease, unspecified COPD type (CMS/HCC); 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 complication, unspecified whether oil heaterman insulin use (CMS/HCC); Osteopenia, unspecified location 06/12/2024 Refill [facility] [address], [place] [phone] Charmaine Rowland MD 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 complication, unspecified whether oil heaterman insulin use ([facility]); Osteopenia, unspecified location 05/19/2024 Refill [facility] [address], [place] [phone] Teresita Munroe DO Rheumatoid arthritis, involving unspecified site, unspecified whether rheumatoid factor present ([facility]) 05/09/2024 Telephone [facility] [address], [place] [phone] Teresita Munroe DO Appointment Request 05/09/2024 Telephone [facility] [address], [place] [phone] Ana Beach RN Recomend Tele [employer]IANCE OFFICER Tier 2 04/14/2024 Refill [facility] [address] [place], [place] [phone] Teresita Munroe DO Chronic pain of both shoulders (Primary Dx) 04/09/2024 Orders Only [facility] DEPARTMENT Provider, Generic External Data from Last 3 Months Immunizations Name Administration Dates Next Due Hep B, adult 09/28/2016,04/05/2015,03/04/2015 Influenza High-dose Quadriva lent Preservative Free 02/22/2023,04/20/2020 Influenza Injectable Quadriv alant Preservative Free IIV4 MDCK 05/24/2021 Influenza injectable quadriv alent IIV4 with preservative 03/04/2015 Influenza injectable quadriv alent preservative free 06/09/2022 Influenza, High Dose Seasona l, Preservative Free 03/19/2020,04/08/2019,03/25/2018,02/27,02/15/2016 Influenza, IIV3, injectable 03/17/2014, 1 Influenza, Split (incl. daina fied surface antigen) 02/09/2012 Moderna Covid-19 Vaccine 12+ 08/12/2020,08/06/19 21 Pneumococcal Conjugate PCV 13 04/05/2015 Pneumococcal Conjugate PCV 20 02/22/2023 Pneumococcal Polysaccharide PPSV23 09/28/2016,,04/12/2005 TD (adult), 2 Lf tetanus tox oid, preservative free, adsorbed 12/17/2006 Tdap 09/19/2023,12/17/2012 Zoster, Recombinant 08/22/2021 Zoster, live 04/05/2015 Social History Tobacco Use Types Packs/Day Years Used Date Smoking Tobacco: Never Passive Smoke Exposure: Never Smokeless Tobacco: Never Tobacco Cessation:Counseling Given: Not Answered Alcohol Use Standard Drinks/Week Comments Never 0 [...] Orientation Straight 04/03/2022 10 :18 AM EDT Last Filed Vital Signs Vital Sign Reading Time Taken Comments Blood Pressure 126/66 01/22/2024 9:51 AM EDT Pulse 82 01/22/2024 9:51 AM EDT Temperature 37.1 ??C (98.8 ??F) 01/22/2024 9:51 AM ED T Respiratory Rate 20 01/22/2024 9:51 AM EDT Oxygen Saturation 90% 01/22/2024 9:51 AM EDT Inhaled Oxygen Concentration - - Weight 68.8 kg (151 lb 9.6 oz) 01/22/2024 9:51 A M EDT Height 157.5 cm (5' 2 ) 01/22/2024 9:51 AM EDT Body Mass Index 27.73 01/22/2024 9:51 AM EDT Plan of Treatment Health Maintenance Due Date Last Done Comments CT Colonography 1950 Dental Prophylaxis 1950 Dental X-Ray: Bitewings 1950 FIT DNA/Cologuard 1950 FIT 1950 FOBT 1950 Sigmoidoscopy 1950 Diabetes: Foot Exam 1959 Eye Exam 1959 Alcohol/Substance Use Screening 1961 Hepatitis A Vaccines (1 of 2 - Risk 2-dose series) 1968 Zoster Vaccines (3 of 3) 10/17/2021 08/22/2021, 07/2014 Dental Oral Exam 12/11/2022 06/12/2022 COVID-19 Vaccine ( season) 2024 05/09/2021, 09/09/2020, 08/12/2020, Additional history exists Influenza Vaccine (#1) 2024 , 06/09/2022, 05/24/2021, Additional history exists RSV Patients and Patients Aged 60 years or older (1 - 1-dose 75+ series) 2024 Diabetes: Hemoglobin A1C 10/07/2024 024, 01/22/2024, 09/19/2023, Additional history exists SDOH Screening 01/07/2025 01/08/2024 Depression Screening 01/21/2025 01/22/2024, 01/22/20 Tobacco Screening 01/21/2025 01/22/2024 Diabetes: Urine Protein Screening 04/09/2025 04/09/2024, 10/17/2022, 08/22/2021, Additional history exists Lipid Panel 04/09/2025 04/09/2024, 10/02, 02/21/2022, Additional history exists Dental X-Ray: Full Mouth 06/13/2025 06/12/2022 Colonoscopy 11/10/2025 11/10/2020, 11/03/2014 Colorectal Cancer Screening 11/10/2025 DTaP/Tdap/Td Vaccines (3 - Td or Tdap) 09/18/2033 09/19/2023, 12/17/2012, 12/17/2006 Hepatitis B Vaccines Completed 09/28/2016, 04/05/2015, 03/04/2015 Pneumococcal Vaccine: 50+ Years Completed 02/22/2023, 09/28/2016, 04/05/2015, Additional history exists Hepatitis C Screening Completed 04/09/2024 HIB Vaccines Aged Out No longer eligi ble based on patient's age to complete this topic HPV Vaccines Aged Out No longer eligi ble based on patient's age to complete this topic IPV Vaccines Aged Out No longer eligi ble based on patient's age to complete this topic Meningococcal Vaccine Aged Out No meredith jah eligible based on patient's age to complete this topic RSV under 20 months Aged Out No longe r eligible based on patient's age to complete this topic Rotavirus Vaccines Aged Out No longer eligible based on patient's age to complete this topic Procedures Procedure Name Priority Date/Time Associated Diagnosis Comments US ABDOMINAL AORTIC ANEURYSM Routine 06/17/2024 11:23 AM EST T4, FREE, DIRECT DIALYSIS Routine 04/09/2024 9:31 AM EST COLLAGEN TYPE I C-TELOPEPTIDE (CTX) Routine 04/09/2024 9:31 AM EST TBG (THYROXINE BINDING GLOBULIN) Routine 04/09/2024 9:31 AM EST ALKALINE PHOSPHATASE, BONE SPECIFIC Routine 04/09/2024 9:31 AM EST T-SPOT(R).TB Routine 04/09/2024 9:31 AM EST PROTEIN ELECTROPHORESIS AND KAPPA/LAMBDA LIGHT CHAINS, SERUM Routine 04/09/2024 9:31 AM EST IMMUNOFIXATION, SERUM Routine 04/09/2024 9:31 AM EST THYROGLOBULIN, LC/MS/MS Routine 04/09/20 9:31 AM EST T3, TOTAL Routine 04/09/2024 9:31 AM EST HEPATITIS PANEL, GENERAL Routine 04/09/2024 9:31 AM EST T4 (THYROXINE), TOTAL Routine 04/09/2024 9:31 AM EST VITAMIN D,25-OH,TOTAL,IA Routine 04/09/2024 9:31 AM EST SED RATE BY MODIFIED WESTERGREN Routine 04/09/2024 9:31 AM EST C-REACTIVE PROTEIN Routine 04/09/2024 9: 31 AM EST URIC ACID Routine 04/09/2024 9:31 AM EST COMPREHENSIVE METABOLIC PANEL Routine 04/09/2024 9:31 AM EST PTH, INTACT WITHOUT CALCIUM Routine 04/09/2024 9:31 AM EST ALBUMIN Routine 04/09/2024 9:31 AM EST CALCIUM Routine 04/09/2024 9:31 AM EST CBC WITH AUTO DIFFERENTIAL Routine 04/09/2024 9:31 AM EST ALPHA FETOPROTEIN, TUMOR MARKER Routine 04/09/2024 9:31 AM EST Fatty liver CBC Routine 04/09/2024 9:31 AM EST 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 complication, without long-term current use of insulin (CMS/HCC) Mixed hyperlipidemia Fatty liver Generalized anxiety disorder Infrarenal abdominal aortic aneurysm (AAA) without rupture (CMS/HCC) Chronic obstructive pulmonary disease, unspecified COPD type (CMS/HCC) Rheumatoid arthritis, involving unspecified site, unspecified whether rheumatoid factor present (CMS/HCC) Osteoporosis without current pathological fracture, unspecified osteoporosis type Heartburn Chronic pain of both shoulders Healthcare maintenance Bilateral thumb pain Bilateral elbow joint pain Borderline abnormal TFTs HEMOGLOBIN A1C Routine 04/09/2024 9:31 AM EST 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 complication, without long-term current use of insulin (CMS/HCC) Mixed hyperlipidemia Fatty liver Generalized anxiety disorder Infrarenal abdominal aortic aneurysm (AAA) without rupture (CMS/HCC) Chronic obstructive pulmonary disease, unspecified COPD type (CMS/HCC) Rheumatoid arthritis, involving unspecified site, unspecified whether rheumatoid factor present (CMS/HCC) Osteoporosis without current pathological fracture, unspecified osteoporosis type Heartburn Chronic pain of both shoulders Healthcare maintenance Bilateral thumb pain Bilateral elbow joint pain Borderline abnormal TFTs HEPATIC FUNCTION PANEL Routine 9:31 AM EST 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 complication, without long-term current use of insulin (CMS/HCC) Mixed hyperlipidemia Fatty liver Generalized anxiety disorder Infrarenal abdominal aortic aneurysm (AAA) without rupture (CMS/HCC) Chronic obstructive pulmonary disease, unspecified COPD type (CMS/HCC) Rheumatoid arthritis, involving unspecified site, unspecified whether rheumatoid factor present (CMS/HCC) Osteoporosis without current pathological fracture, unspecified osteoporosis type Heartburn Chronic pain of both shoulders Healthcare maintenance Bilateral thumb pain Bilateral elbow joint pain Borderline abnormal TFTs TSH Routine 04/09/2024 9:31 AM EST 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 complication, without long-term current use of insulin (CMS/HCC) Mixed hyperlipidemia Fatty liver Generalized anxiety disorder Infrarenal abdominal aortic aneurysm (AAA) without rupture (CMS/HCC) Chronic obstructive pulmonary disease, unspecified COPD type (CMS/HCC) Rheumatoid arthritis, involving unspecified site, unspecified whether rheumatoid factor present (CMS/HCC) Osteoporosis without current pathological fracture, unspecified osteoporosis type Heartburn Chronic pain of both shoulders Healthcare maintenance Bilateral thumb pain Bilateral elbow joint pain Borderline abnormal TFTs LIPID PANEL, STANDARD Routine 04/09/2024 9:31 AM EST 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 complication, without long-term current use of insulin (CMS/HCC) Mixed hyperlipidemia Fatty liver Generalized anxiety disorder Infrarenal abdominal aortic aneurysm (AAA) without rupture (CMS/HCC) Chronic obstructive pulmonary disease, unspecified COPD type (CMS/HCC) Rheumatoid arthritis, involving unspecified site, unspecified whether rheumatoid factor present (CMS/HCC) Osteoporosis without current pathological fracture, unspecified osteoporosis type Heartburn Chronic pain of both shoulders Healthcare maintenance Bilateral thumb pain Bilateral elbow joint pain Borderline abnormal TFTs ALBUMIN, RANDOM URINE W/CREATININE Routine 04/09/2024 9:28 AM EST 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 complication, without long-term current use of insulin (CMS/HCC) Mixed hyperlipidemia Fatty liver Generalized anxiety disorder Infrarenal abdominal aortic aneurysm (AAA) without rupture (CMS/HCC) Chronic obstructive pulmonary disease, unspecified COPD type (CMS/HCC) Rheumatoid arthritis, involving unspecified site, unspecified whether rheumatoid factor present (CMS/HCC) Osteoporosis without current pathological fracture, unspecified osteoporosis type Heartburn Chronic pain of both shoulders Healthcare maintenance Bilateral thumb pain Bilateral elbow joint pain Borderline abnormal TFTs CORTISOL FREE, URINE, 24 HOUR Routine 04/09/2024 8:00 AM EST CALCIUM, 24 HOUR URINE (W/ CREATININE) Routine 04/09/2024 8:00 AM EST CREATININE, 24 HR GROUP Routine 04/09/20 8:00 AM EST PANORAMIC RADIOGRAPHIC IMAGE Routine 06/12/2022 1:00 PM EST Encounter for dental examination PERIODIC ORAL EVALUATION - ESTABLISHED PATIENT Routine 06/12/2022 1:00 PM EST Encounter for dental examination HM COLONOSCOPY Routine 11/10/2020 10:20 AM EDT from Last 3 Months or Most Recently Relevant to Health Maintenance Results * US ABDOMINAL AORTIC ANEURYSM (06/17/2024 11:23 AM EST) Anatomical Region Laterality Modality Abdomen Ultrasound 06/17/2024 11:2 3 AM EST Narrative 06/17/2024 11:24 AM EST ? [facility] ?[address] ? [place] [address] ? Ultrasound Report ? Signed ? Patient: Gagan,Aspen ?MR#: [id number] ?? 4 ? : 1950 ?Acct:[id number] ? Age/Sex: 74 / F ?ADM Date: 06/16/24 ? Loc: HO.HMGCX ? Attending Dr: Daron Jones MD ? Ordering Physician: Daron Jones MD ?? Date of Service: 06/16/24 ?? Procedure(s): US abdominal aortic aneurysm ?? Accession Number(s): [id number] ? cc: Teresita Munroe DO; Daron Jones [...] MD in OV> ?06/17/24 1124 ? DD/ 1123 ? TD/TT: 06/17/24 1123 ? Juice Mixer: ? Procedure Note Kait, Image - 06/17/2024 [facility] [place] [facility] [address] [place] [address] Ultrasound Report Signed Patient: Aspen Farah#: [id number] 4 : 9Acct:[id number] Age/Sex: 74 / FADM Date: 06/16/24 Loc: HO.HMGCX Attending Dr: Daron Jones MD Ordering Physician: Daron Jones MD Date of Service: 06/16/24 Procedure(s): US abdominal aortic aneurysm Accession Number(s): [id number] cc: Teresita Munroe DO; Daron Jones MD [...] 06/17/24 1124 DD/ 1123 TD/TT: 06/17/24 1123 Juice Mixer: us [facility] External Provider IMG US PROCEDURES Final Result * Collagen Type I C-Telopeptide (CTx) (04/09/2024 9:31 AM EST) C-Telopeptide (CTx) 400 see note pg/mL [facility] Comment: ?Unable to flag abnormal result(s), please refer ?to reference range(s) below:Reference Range, Females: ?<5 years: Not Established ? 5-9 years: 574-1849 pg/mL ? 10-13 years: 519-2415 pg/mL ? 14-17 years: 242-1291 pg/mL ? 18- 29 years: 64-640 pg/mL ? 30-39 years: 60-650 pg/mL ? 40-49 years: 50-465 pg/mL ? >49 years: Not EstablishedNo reference range is provided for postmenopausal womenbecause of the increased rate of bone turnoverpost- menopause. It is recommended that results forpostmenopausal women be compared to the premenopausalreference range as this will give a better indicationof their rate of bone loss.For additional information, please refer totps://education.[employer]/faq/TNS282(This link is being provided for informational/educational purposes only.)THIS TEST WAS PERFORMED AT:[id number] [place], [place] ??[id number] W. MASON,MD,PHD 04/09/2024 9:31 AM EST 04/09/2024 9:31 AM EST us Generic External Data Provider LAB BLOOD ORDERAB LES Final Result [facility] [address] [place], [place] [phone] * Thyroglobulin, LC/MS/MS (04/09/2024 9:31 AM EST) Thyroglobulin, LC/MS/MS 15.4 ng/mL [facility] Comment:Reference Range: Int act Thyroid 2.8-40.9 Athyrotic <0.1 Note: Abnormal flagging is based on the reference interval for patients with intact thyroid.This test was performed using the Jaxon Coulterchemiluminescent method. Values obtained fromdifferent assay methods cannot be usedinterchangeably. Thyroglobulin levels, regardlessof value, should not be interpreted as absoluteevidence of the presence or absence of disease. Thyroglobulin Comment See Below [facility] Comment:Thyroglobulin antibo dies (TGAB) interfere withthyroglobulin (TG) assays; therefore, TGAB assayshould always be performed in conjunction with aTG assay.For additional information, please refer tohttp://education.FlashSoft/faq/QPG362(This link is being provided for informational/educational purposes only.)THIS TEST WAS PERFORMED AT:[facility] [place] [phone] MACEDO MD 04/09/2024 9:31 AM EST 04/09/2024 9:31 AM EST us Generic External Data Provider LAB BLOOD ORDERAB LES Final Result [facility] [address] [place] [address] [phone] * (ABNORMAL) Vitamin D, 25-Hydroxy, Total, Immunoassay (04/09/2024 9:31 AM EST) Vitamin D 25-OH Total 19.8(L) >30 ng/mL [facility] Comment:Health Based Referen ce Values*< 20 ng/mL Ifrngadnd91-21 ng/mL Insufficient> 30 ng/mL Sufficient*Santos MARCELINO. N Engl J Med. 2007;357:266-280Care must be taken in interpreting Vitamin D results fromdifferent laboratories and methodologies. Published datademonstrated that results from patients undergoinghemodialysis may show a negative bias when tested withvarious automated 25-OH vitamin D assays when compared toLC-MS/MS.When testing samples from patients whose predominant form ofVitamin D is Vitamin D2, such as patients receiving VitaminD2 supplementation, results that are subtherapeutic shouldbe confirmed with another method such as LC-MS/MS. 04/09/2024 9:31 AM EST 04/09/2024 9:31 AM EST us Generic External Data Provider LAB BLOOD ORDERAB LES Final Result [facility] [address] [place] [phone] * T-SPOT??.TB (04/09/2024 9:31 AM EST) [facility] T Spot TB Negative Negative [facility] Comment:A negative test resu lt does not exclude the possibilityof exposure to or infection with Mycobacteriumtuberculosis (M. tuberculosis). Patients with recentexposure to TB infected individuals exhibiting anegative T-SPOT.TB result should be considered forretesting within 6 weeks or if other relevant clinicalsymptoms indicate. Results from T-SPOT.TB testing mustbe used in conjunction with each individual'sepidemiological history, current medical status,and results of other diagnostic evaluations.The T-SPOT.TB test is qualitative and results arereported as positive, borderline, or negative, giventhat the test controls perform as expected. In linewith the Centers for Disease Control and Prevention's2010 recommendation to report quantitative measurementsalongside the qualitative result, the laboratoryprovides spot counts for informational purposes only.The T-SPOT.TB test should not be interpreted as aquantitative test. TS PANEL A 0 [facility] TS PANEL B 0 [facility] Negative Control Passed [facility] Positive Control Passed [facility] Comment:For additional infor emmanuelle, please refer tohttp://education.FlashSoft/faq/HHU115(This link is being provided for informational/educational purposes only.)THIS TEST WAS PERFORMED AT:[facility] [id number] [place] [address]MMJPZZFJOSH CLIFFORD MD,PHD 04/09/2024 9:31 AM EST 04/09/2024 9:31 AM EST Generic External Data Provider LAB BLOOD ORDERAB LES Final Result Performing Organization Address [facility] Co de Phone Number [facility] [address] [place] [phone] * (ABNORMAL) T4 Free, Direct Dialysis (04/09/2024 9:31 AM EST) Pathologist [facility] T4, Free, Direct Dialysis 0.7(A) 0.9 - 2.2 ng/dL [facility] Comment:This test was develo ped and its analytical performancecharacteristics have been determined by [facility] [place], [place]. It hasnot been cleared or approved by the U.S. Food and DrugAdministration. This assay has been validated pursuantto the CLIA regulations and is used for clinicalpurposes.THIS TEST WAS PERFORMED AT:[id number] [place] [address]YOPRXQPJOSH CLIFFORD MD,PHD 04/09/2024 9:31 AM EST 04/09/2024 9:31 AM EST Generic External Data Provider LAB BLOOD ORDERAB LES Final Result Performing Organization Address [facility] Co de Phone Number [facility] [address] [place] [address] [phone] * Protein Electrophoresis and [place] (04/09/2024 9:31 AM EST) Prot Elec - Total Protein 7.2 6.1 - 8.1 g/dL [facility] Prot Elec - Albumin 3.9 3.8 - 4.8 g/dL [facility] Prot Elec - Alpha1 0.2 0.2 - 0.3 g/dL [facility] Prot Elec - Alpha2 0.8 0.5 - 0.9 g/dL [facility] Prot Elec - Beta 1 0.4 0.4 - 0.6 g/dL [facility] Prot Elec - Beta 2 0.5 0.2 - 0.5 g/dL [facility] Prot Elec - Gamma 1.4 0.8 - 1.7 g/dL [facility] PES - Abn Protein Band 1 TNP [facility] PES-Abn Protein Band 2 [facility] P[facility]-Abn Protein Band 3 [facility] Prot Elec - Interpretation SEE NOTE [facility] Comment:Normal Serum Protein Electrophoresis Pattern.No abnormal protein bands (M-protein) detected.THIS TEST WAS PERFORMED AT:[facility] [place] [phone] MACEDO MD 04/09/2024 9:31 AM EST 04/09/2024 9:31 AM EST Generic External Data Provider LAB BLOOD ORDERAB LES Final Result [facility] [address] [place] [phone] * Hepatitis Panel, General (04/09/2024 9:31 AM EST) Hepatitis A IgM Nonreactive Nonreactive [facility] Comment:IgM antibodies to GUERRA V not detected; does not exclude earlyacute or recovered HAV infection. ~Hepatitis B Surface Antibody REACTIVE Nonreactive [facility] Comment:REACTIVE: > 11.99 mI U/mL Hepatitis B Core Antibody Nonreactive Nonreactive [facility] Hepatitis C Antibody Nonreactive Nonreactive [facility] Comment:Antibodies to HCV no t detected; does not exclude early acuteHCV infection. Hepatitis B Surface Ag Negative Negative [facility] 04/09/2024 9:31 AM EST 04/09/2024 9:31 AM EST us Generic External Data Provider LAB BLOOD ORDERAB LES Final Result [facility] [address] [place], [place] [phone] * (ABNORMAL) CBC auto differential (04/09/2024 9:31 AM EST) White Blood Count 5.0 4.8 - 10.8 X10*3/uL [facility] Red Blood Count 4.17(L) 4.20 - 5.50 X10*6/uL [facility] Hemoglobin 12.5 12.0 - 16.0 g/dl [facility] Hematocrit 37.6 37.0 - 47.0 % [facility] Mean Corpuscular Volume 90.2 80.0 - 98.0 fL [facility] Mean Corpuscular Hemoglobin 30.0 27.0 - 33.0 pg [facility] Mean Corpuscular HGB Conc 33.2 31.0 - 35.0 g/dl [facility] Red Cell Distribution Width 13.2 11.0 - 16.0 % [facility] Platelet Count 225 160 - 400 X10*3/uL [facility] Mean Platelet Volume 10.4 9.4 - 12.3 fL [facility] Neutrophils Percent Auto 43.6(L) 45 - 73 % [facility] Imm Gran Pct Auto 0.2 0.0 - 0.4 % [facility] Lymphocytes Percent Auto 40.0 20 - 40 % [facility] Monocytes Percent Auto 8.2 2 - 11 % [facility] Eosinophils Percent Auto 6.8(H) 0 - 4 % [facility] Basophils Percent Auto 1.2 0 - 2 % [facility] NRBC Pct Auto 0.0 0.0 - 0.2 /100WBC [facility] Neutrophils Absolute Auto 2.2 2.0 - 8.3 x10*3/uL [facility] Imm Gran Abs Auto 0.01 0.00 - 0.03 X10*3/uL [facility] Lymphocytes Absolute Auto 2.0 1.2 - 4.9 X10*3/uL [facility] Monocytes Absolute Auto 0.4 0.1 - 1.2 X10*3/uL [facility] Eosinophils Absolute Auto 0.3 0.0 - 0.4 X10*3/uL [facility] Basophils Absolute Auto 0.1 0.0 - 0.2 X10*3/uL [facility] NRBC Abs Auto 0.000 0.0 - 0.012 X10*3/uL [facility] 04/09/2024 9:31 AM EST 04/09/2024 9:31 AM EST us Generic External Data Provider LAB BLOOD ORDERAB LES Final Result Performing Organization Address [facility]/ZIP Co de Phone Number [facility] [address] [place] [phone] * Alpha-Fetoprotein, Tumor Marker (04/09/2024 9:31 AM EST) Pathologist [facility] Alpha Fetoprotein 4.6 ng/mL [facility] Comment:Reference Range: <6. 1The use of AFP as a tumor marker in females is not recommended.This test was performed using the Jaxon Coulterchemiluminescent method. Values obtained fromdifferent assay methods cannot be usedinterchangeably. AFP levels, regardless ofvalue, should not be interpreted as absoluteevidence of the presence or absence of disease.THIS TEST WAS PERFORMED AT:[facility] [address] [address]DPRPCAZALIA MACEDO MD Blood Venous blood specimen / Unknown 04/09/2024 9:31 AM EST 04/09/2024 9:31 AM EST us Teresita Munroe DO LAB BLOOD ORDERABLES Final R esult Performing Organization Address [facility]/ZIP Co de Phone Number [facility] [address] [place] [phone] * Alkaline Phosphatase, Bone Specific (04/09/2024 9:31 AM EST) [facility] Alkaline Phosphatase, Bone Specific 16.1 5.6 - 29.0 mcg/L [facility] Comment:Reference Range, Pre menopausal (mcg/L) 35-45 years 5.0-18.2THIS TEST WAS PERFORMED AT:[id number] [place] [address]DJLWEIGJOSH CLIFFORD MD,PHD 04/09/2024 9:31 AM EST 04/09/2024 9:31 AM EST Generic External Data Provider LAB BLOOD ORDERAB LES Final Result Performing Organization Address [facility]/ZIP Co de Phone Number [facility] [address] [place] [address] [phone] * (ABNORMAL) Sed Rate by Modified [place] (04/09/2024 9:31 AM EST) Pathologist [facility] Erythrocyte Sedimentation Rate 49(H) 0 - 20 MM/HR [facility] Comment:Patients with polycy themia and many hemoglobin abnormalitiesmay have depressed sed rates whereas patients with anemiamay have elevated sed rates. 04/09/2024 9:31 AM EST 04/09/2024 9:31 AM EST us Generic External Data Provider LAB BLOOD ORDERAB LES Final Result Performing Organization Address [facility] Co de Phone Number [facility] [address] [place] [address] [phone] * (ABNORMAL) CBC (04/09/2024 9:31 AM EST) [facility] White Blood Count 5.0 4.8 - 10.8 X10*3/uL [facility] Red Blood Count 4.18(L) 4.20 - 5.50 X10*6/uL [facility] Hemoglobin 12.4 12.0 - 16.0 g/dl [facility] Hematocrit 38.4 37.0 - 47.0 % [facility] Mean Corpuscular Volume 91.9 80.0 - 98.0 fL [facility] Mean Corpuscular Hemoglobin 29.7 27.0 - 33.0 pg [facility] Mean Corpuscular HGB Conc 32.3 31.0 - 35.0 g/dl [facility] Red Cell Distribution Width 13.3 11.0 - 16.0 % [facility] Platelet Count 213 160 - 400 X10*3/uL [facility] Mean Platelet Volume 10.6 9.4 - 12.3 fL [facility] NRBC Pct Auto 0.0 0.0 - 0.2 /100WBC [facility] NRBC Abs Auto 0.000 0.0 - 0.012 X10*3/uL [facility] Blood Venous blood specimen / Unknown 04/09/2024 9:31 AM EST 04/09/2024 9:31 AM EST us Teresita Munroe DO LAB BLOOD ORDERABLES Final R esult Performing Organization Address [facility] de Phone Number [facility] [address] [place] [phone] * (ABNORMAL) Immunofixation, Serum (04/09/2024 9:31 AM EST) IMMUNOGLOBULIN G 1371 600 - 1540 mg/dL [facility] IMMUNOGLOBULIN A 396(A) 70 - 320 mg/dL [facility] Immunoglobulin M 364(A) 50 - 300 mg/dL [facility] Comment:THIS TEST WAS PERFOR MED AT:[facility] [place] [phone] MACEDO MD Immunofixation Result SEE NOTE [facility] Comment:Normal pattern. No m onoclonal proteins detected. 04/09/2024 9:31 AM EST 04/09/2024 9:31 AM EST us Generic External Data Provider LAB BLOOD ORDERAB LES Final Result Performing Organization Address [facility] Co de Phone Number [facility] [address] [place] [address] [phone] * (ABNORMAL) C-reactive Protein (04/09/2024 9:31 AM EST) Pathologist [facility] C Reactive Protein 0.59(H) < or = 0.50 mg/dL [facility] 04/09/2024 9:31 AM EST 04/09/2024 9:31 AM EST us Generic External Data Provider LAB BLOOD ORDERAB LES Final Result Performing Organization Address [facility]/ZIP Co de Phone Number [facility] [address] [place] [address] [phone] * Uric acid (04/09/2024 9:31 AM EST) [facility] Uric Acid 5.6 2.4 - 5.7 mg/dL [facility] 04/09/2024 9:31 AM EST 04/09/2024 9:31 AM EST us Generic External Data Provider LAB BLOOD ORDERAB LES Final Result Performing Organization Address [facility] Co de Phone Number [facility] [address] [place] [address] [phone] * T3, Total (04/09/2024 9:31 AM EST) T3, Total 113 76 - 181 ng/dL [facility] Comment:THIS TEST WAS PERFOR MED AT:[facility] [place] [phone] MACEDO MD 04/09/2024 9:31 AM EST 04/09/2024 9:31 AM EST us Generic External Data Provider LAB BLOOD ORDERAB LES Final Result Performing Organization Address [facility] Co de Phone Number [facility] [address] [place] [address] [phone] * TSH (04/09/2024 9:31 AM EST) Thyroid Stimulating Hormone 1.17 0.32 - 4.0 uIU/mL [facility] Comment:TSH 3rd Generation ( [facility]) Blood Venous blood specimen / Unknown 04/09/2024 9:31 AM EST 04/09/2024 9:31 AM EST us Teresita Munroe DO LAB BLOOD ORDERABLES Final R esult Performing Organization Address City/[facility]/ZIP Co de Phone Number [facility] [address] [place] [address] [phone] * Thyroxine-binding Globulin (TBG), Serum (04/09/2024 9:31 AM EST) TBG (Thyroxine Binding Globulin) 29.1 13.5 - 30.9 mcg/mL [facility] Comment:To convert to nmol/L , multiply the result by 18.5.THIS TEST WAS PERFORMED AT:[facility] [id number] [place] [address]DTFQYLJJOSH CLIFFORD MD,PHD 04/09/2024 9:31 AM EST 04/09/2024 9:31 AM EST us Generic External Data Provider LAB BLOOD ORDERAB LES Final Result Performing Organization Address [facility]/ZIP Co de Phone Number [facility] [address] [place] [phone] * T4 (Thyroxine), Total (04/09/2024 9:31 AM EST) T4 Thyroxine 6.1 4.5 - 12.0 ug/dL [facility] 04/09/2024 9:31 AM EST 04/09/2024 9:31 AM EST us Generic External Data Provider LAB BLOOD ORDERAB LES Final Result Performing Organization Address City/[facility]/ZIP Co de Phone Number [facility] [address] [place] [phone] * (ABNORMAL) PTH, Intact Without Calcium (04/09/2024 9:31 AM EST) Parathyroid Hormone, Intact 80.8(H) 8.7 - 77.1 pg/mL [facility] 04/09/2024 9:31 AM EST 04/09/2024 9:31 AM EST us Generic External Data Provider LAB BLOOD ORDERAB LES Final Result Performing Organization Address [facility] Co de Phone Number [facility] [address] [place] [address] [phone] * Hemoglobin A1c (04/09/2024 9:31 AM EST) Hemoglobin A1c 5.9 <6.0 % [facility] Comment:Hemoglobin A1C Refer ence Range Adults: 4.8 - 6.0 % Non diabetic: < 6.0 % Goal: < 7.0 %Additional Action Suggested: > 8.0 %Note: Hemoglobin A1c results are invalid for patients with abnormal amounts of HbF. Blood transfusions may impact the HbA1c concentration in the patient sample. Estimated Average Glucose 123 mg/dL [facility] Comment:eAG = Estimated ave rage glucose which is %A1C expressed asaverage glucose, using the formula of the G7S-KrwlnfuBlffnmm Glucose study (ADAG), Diabetes Care, Vol.31,#8,Jan. 2007 Blood Venous blood specimen / Unknown 04/09/2024 9:31 AM EST 04/09/2024 9:31 AM EST us Teresita Munroe DO LAB BLOOD ORDERABLES Final R esult Performing Organization Address [facility] Co de Phone Number [facility] [address] [place] [address] [phone] * Calcium (04/09/2024 9:31 AM EST) Calcium 9.8 8.4 - 10.2 mg/dL [facility] 04/09/2024 9:31 AM EST 04/09/2024 9:31 AM EST us Generic External Data Provider LAB BLOOD ORDERAB LES Final Result Performing Organization Address [facility] Phone Number [facility] [address] [place] [address] [phone] * Albumin (04/09/2024 9:31 AM EST) Albumin Level 4.1 3.5 - 5.0 g/dL [facility] 04/09/2024 9:31 AM EST 04/09/2024 9:31 AM EST us Generic External Data Provider LAB BLOOD ORDERAB LES Final Result Performing Organization Address [facility] Phone Number [facility] [address] [place] [address] [phone] * Hepatic Function Panel (04/09/2024 9:31 AM EST) Pathologist [facility] Bilirubin, Direct 0.2 0.0 - 0.5 mg/dL [facility] Blood Venous blood specimen / Unknown 04/09/2024 9:31 AM EST 04/09/2024 9:31 AM EST us Teresita Munroe DO LAB BLOOD ORDERABLES Final R esult Performing Organization Address [facility] Phone Number [facility] [address] [place] [address] [phone] * Lipid Panel, Standard (04/09/2024 9:31 AM EST) Triglycerides 88 <150 mg/dL [facility] Comment:Desirable Triglyceri de: less than 150 mg/dLBorderline High Triglyceride 150-199 mg/dLHigh Triglyceride: 200-499 mg/dLVery High Triglyceride: greater than or equal to 5OO mg/dL Cholesterol 97 <200 mg/dL [facility] Comment:Desirable Cholestero l: less than 200 mg/dLBorderline High Cholesterol: 200-239 mg/dLHigh Cholesterol: greater than 239 mg/dL LDL Cholesterol Calculated 32 <100 mg/dL [facility] Comment:Desirable LDL: less than 100 mg/dLNear Optimal/Above Optimal LDL: 110- 129 mg/dLBorderline High LDL: 130-159 mg/dLHigh LDL: 160-189 mg/dLVery High LDL: greater than or equal to 190 mg/dL HDL Cholesterol 48 >40 mg/dL [facility] Comment:Desirable HDL: great er than 40 mg/dL Note: This HDL assay may give artificially low results in patients with liver disease. Blood Venous blood specimen / Unknown 04/09/2024 9:31 AM EST 04/09/2024 9:31 AM EST us Teresita Munroe DO LAB BLOOD ORDERABLES Final R esult [facility] [address], [place] [phone] * (ABNORMAL) Comprehensive Metabolic Panel (04/09/2024 9:31 AM EST) Sodium 143 135 - 145 mmol/L [facility] Potassium 3.9 3.3 - 5.1 mmol/L [facility] Chloride 109(H) 96 - 108 mmol/L [facility] Carbon Dioxide 25 22 - 29 mmol/L [facility] Anion Gap 13 12 - 20 [facility] Urea Nitrogen (BUN) 12 9 - 16 mg/dL [facility] Creatinine, Serum 0.72 0.5 - 1.4 mg/dL [facility] Estimated Glomerular Filt Rate >60 [facility] Comment:NOTE: For -Am erican individuals, multiply the result by 1.210.Chronic Kidney Disease: Estimated GFR < 60 mL/min/1.58w8Wrhdxu Kidney Disease: Estimated GFR < 15 mL/min/1.73m2 Glucose 105 60 - 115 mg/dL [facility] Calcium 9.5 8.4 - 10.2 mg/dL [facility] Bilirubin, Total 0.5 0.0 - 1.0 mg/dL [facility] Aspartate Amino Transferase 27 5 - 31 U/L [facility] Alanine Aminotransferase 17 0 - 31 U/L [facility] Total Protein 7.8 6.5 - 8.0 g/dL [facility] Albumin Level 4.1 3.5 - 5.0 g/dL [facility] Alkaline Phosphatase 87 39 - 117 U/L [facility] 04/09/2024 9:31 AM EST 04/09/2024 9:31 AM EST us Generic External Data Provider LAB BLOOD ORDERAB LES Final Result Performing Organization Address [facility] Phone Number [facility] [address] [place] [address] [phone] * Albumin, Random Urine W/Creatinine (04/09/2024 9:28 AM EST) Creatinine, Urine 128.14 mg/dL [facility] Microalbumin Urine 12.0 mg/L [facility] Microalbum Creatinine Ratio Ur 9.3 <30 ug/mg cr [facility] Comment:Albumin/Creatinine R atio Reference Ranges: Normal: < 30 ug/mg creatinine Microalbuminuria: 30 - 300 ug/mg creatinineClinical Albuminuria: > 300 ug/mg creatinine Urine (Urine, Random) 04/09/2024 9:28 AM EST 04/09/2024 9:40 AM EST us Teresita Munroe DO LAB URINE ORDERABLES Final R esult Performing Organization Address [facility] Co de Phone Number [facility] [address] [place] [address] [phone] * (ABNORMAL) CREATININE, 24 HR GROUP (04/09/2024 8:00 AM EST) Creatinine, 24 Hour Urine 0.7(L) 1.0 - 2.0 G/Day [facility] Creatinine, Urine 73.97 [facility] Urine Total Volume 24 Hour 950 mL [facility] 04/09/2024 8:00 AM EST 04/09/2024 9:50 AM EST [facility] - 04/09/2024 12:53 PM EST [id number] Generic External Data Provider LAB URINE ORDERAB LES Final Result Performing Organization Address [facility]/ZIP Co de Phone Number [facility] [address] [place] [address] [phone] * Calcium, 24 Hour Urine W/ Creatinine (04/09/2024 8:00 AM EST) Calcium, 24 Hour Urine 68 mg/24 h [facility] Comment:Reference Range 35-2 50 Low calcium diet 35-200 Calcium/Creatini ne Ratio 97 30 - 275 mg/g creat [facility] Creatinine, 24 Hour Urine 0.70 0.50 - 2.15 g/24 h [facility] Comment:THIS TEST WAS PERFOR MED AT:[facility] [place] [phone] MACEDO MD 04/09/2024 8:00 AM EST 04/09/2024 9:50 AM EST [facility] - 04/10/2024 4:37 PM EST [id number] Generic External Data Provider LAB URINE ORDERAB LES Final Result Performing Organization Address City/[facility] Co de Phone Number [facility] [address] [place] [address] [phone] * Cortisol, Free, 24 Hour Urine (04/09/2024 8:00 AM EST) Cortisol, Free, 24 hr Urine 4.9 4.0 - 50.0 mcg/24 h [facility] Comment:This test was develo ped and its analytical performancecharacteristics have been determined by [employer].It has not been cleared or approved by FDA. This assay hasbeen validated pursuant to the CLIA regulations and is usedfor clinical purposes. Creatinine, Urine 0.72 0.50 - 2.15 g/24 h [facility] Comment:THIS TEST WAS PERFOR MED AT:[facility]/[id number] [place] [id number] LIPSCOMB MD,PHD,BIANCA Total Volume 950 mL [facility] 04/09/2024 8:00 AM EST 04/09/2024 9:50 AM EST Narrative [facility] - 04/14/2024 4:22 PM EST [id number] Generic External Data Provider LAB BLOOD ORDERAB LES Final Result Performing Organization Address City/State/[facility] Co de Phone Number [facility] [address] [place] [phone] * Hm Colonoscopy (11/10/2020 10:20 AM EDT) Historical Provider HEALTH MAINTENANCE Final Result from Last 3 Months or Most Recently Relevant to Health Maintenance Insurance [facility] Care Teams Professor Of German Relationship Specialty Start Date End Date Teresita Munroe DO [address] [place] [id number] PCP - General Family Medicine 07/28/14
== END 2024-07-07 13:18 | disposition home or self-care (01) ==
PROVIDERS: PCP Family Medicine; Visit Provider Student in an Organized Health Care Education/Training Program
DX: M81.0 Age-related osteoporosis without current pathological fracture (principal); R79.89 Other specified abnormal findings of blood chemistry
CPT/HCPCS: 99214

== ENCOUNTER 2024-07-22 11:02 | Outpatient (AMB) | payer OTHER, SELFPAY ==
--- NOTE | 2024-07-22 11:03 | A.OFFVIS_ITS ---
Vital Signs 07/22/24 11:11 Height 5 ft 4 in Weight 144 lb 9.972 oz BMI 24.8 BP 112/60 Blood Pressure Location Lt brachial Position Sitting Pulse 90 Pulse Source Pulse Oximeter Pulse Oximetry (%) 92 Oxygen Delivery Method Room Air Intake Visit Reasons: follow up Intake Note: Patient presents for follow up. Logistics Planner Required: Yes Logistics Planner Language: Tire Maintenance Technician Services: Logistics Planner Present Logistics Planner Name: Michel [id number] Information Interpreted: non-clinical & clinical Allergies lobster Allergy (Uncoded 07/07/24 12:46) Nausea and Vomiting Medication List - Last Reconciled 07/22/24 by Yolanda Butt MD acetaminophen ER 650 mg PO TID albuterol sulfate 90 mcg/actuation (Ventolin HFA) 2 puffs inhalation Q4-6H PRN aspirin 81 mg PO DAILY buspirone 1 tab PO BID calcium carbonate (Calcium 600) 600 mg PO DAILY cholecalciferol (vitamin D3) 1,250 mcg PO QWEEK 3 months clopidogrel 75 mg PO DAILY diclofenac sodium 1% 1 ea topical QID docusate sodium 100 mg PO BID 14 days duloxetine 60 mg PO BID evolocumab (Repatha SureClick) 1 ea subcut Q14D evolocumab (Repatha SureClick) 140 mg subcut Q2W ezetimibe 10 mg PO DAILY fenofibrate 160 mg PO DAILY fexofenadine 180 mg PO DAILY fluticasone propion-salmeterol 500-50 mcg/dose 1 inh inhalation BID folic acid 1 mg PO DAILY gabapentin 300 mg PO DAILY ipratropium-albuterol 0.5 mg-3 mg(2.5 mg base)/3 mL mL inhalation lidocaine 5% 1 patch topical DAILY metformin ER 500 mg PO BID methotrexate sodium 7.5 mg (3 x 2.5 mg) PO QWEEK 90 days methylprednisolone (Medrol) 4 mg PO DAILY 6 weeks midodrine 1 tab PO BID montelukast 10 mg PO DAILY quetiapine 1 tab PO BEDTIME rosuvastatin 40 mg PO DAILY sodium chloride 0.65% (Deep Sea Nasal) 1 - 2 sprays intranasal Q2-3H PRN tramadol 1 tab PO BID PRN umeclidinium 62.5 mcg/actuation (Incruse Ellipta) 1 inh inhalation DAILY HPI Comments Details: Patient is a 73-year-old female with hyperlipidemia, diabetes who presents for evaluation of her seronegative erosive rheumatoid arthritis. Interval History: Last seen 03/21/2024 with me. At that time she was on Humira for rheumatoid arthritis however was noticing that she was not having any efficacy on this m edication. And so she was switched to abatacept. Insurance denied abatacept and so she was started on Enbrel Today, Started Enbrel 05/2024 Was also given medrol but this did not help with the pain Enbrel they are not sure if it helped at all Rheumatologic History: Onset~ 2011?. 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 Methotrexate added 2015. 06/22: sulfasalazine added Hydroxychloroquine stopped 08/21 - retinal edema Patient reported eye exam 09/18, 04/22, 03 January 2022: Methotrexate held in preparation for shoulder surgery. Not restarted so far. Sulfasalazine continued. 2022 methotrexate and sulfasalazine restarted. However both ineffective Humira added 10/2023. Stopped 03/2024 ineffective. Sulfasalazine also stopped Abatacept 03/2024. Insurance denied Enbrel 04/2024 Current Rheumatology Medication(s): Enbrel 50 mg every week Sulfasalazine 1500mg bid Methotrexate 3 tablets weekly folic acid 1 mg daily [facility] Medical History (Updated 07/22/24 @ 13:22 by Yolanda Butt MD) Long-term use of Plaquenil Encounter for methotrexate monitoring Encounter for monitoring tocilizumab therapy Vitamin D deficiency Hypothyroxinemia Osteoarthritis (arthritis due to wear and tear of joints) Chronic venous insufficiency Subclavian artery stenosis Carotid arterial disease AAA (abdominal aortic aneurysm) Diabetes Elevated cholesterol COPD (chronic obstructive pulmonary disease) Asthma PVD (peripheral vascular disease) CAD (coronary artery disease) HTN (hypertension) Surgical History History of arthroplasty of right shoulder Hx of removal of cyst Hx of endoscopy History of colonoscopy Family History Father No problems noted. Mother Family history of high blood pressure Hx of type 1 diabetes mellitus Social History Are you a primary personal care worker to a significant other at home: No Do you presently have visiting nurse or other home services: Yes (TAX SERVICES MANAGER - daily) Alcohol intake: never Patient Tobacco Use Status: Former Tobacco user Tobacco use type: Cigarette service: No Current occupational status: disabled Current occupation: left hand Review of Systems Const Details: Review of Systems Constitutional: Denies fever, chills, weight loss ENT: Denies vision changes, eye pain or eye redness, dental caries, dry mouth GI: Denies nausea, vomiting, diarrhea, abdominal pain, change in BM Pulm: Denies SOB, REID, hemoptysis, wheezing Cards: Denies chest pain, palpitations Skin: Denies Raynaud's, rash, nail changes, photosensitivity, MANAGER CONSUMER INSIGHTS: Denies headaches, weakness, paresthesias, recurrent falls MSK: as per HPI All other systems reviewed and are unremarkable except noted above Physical Exam Vital Signs: Last Vital Signs Pulse 90 07/22/24 11:11 BP 112/60 07/22/24 11:11 Pulse Ox 92 07/22/24 11:11 Oxygen Delivery Method Room Air 07/22/24 11:11 BMI result Body Mass Index 24.8 Vital signs reviewed Physical Examination Patient well appearing and in no apparent painful distress Constitutional Mucous membranes pink and moist patient alert and cooperative HEENT Conjunctiva and sclera clear. ?Pupils equal round and reactive to light. ?No lymphadenopathy. ?Normal dentition. Respiratory System Normal respiratory effort and able to speak in complete sentences. ?Clear to auscultation bilaterally. ?No crackles, rales, rhonchi, wheezes heard. Cardiac System Regular rate and rhythm. ? MSK Hands: Able to make a fist. Has synovial hypertrophy involving the MCPs throughout. First CMC tenderness to palpation. PIP swelling and tenderness to palpation. Wrists: Normal pain-free range of motion without tenderness, swelling, increased warmth or erythema. Elbows: Elbow joint without swelling however there is swelling and tenderness to palpation of the medial epicondyle. Shoulders: Full range of motion without pain. No tenderness, weakness, swelling, increased warmth or erythema. Knees:.???Full range of motion of knees. Ankles:.??Normal pain-free range of motion without tenderness, swelling, increased warmth or erythema. Feet:.??Normal pain-free range of motion without tenderness, swelling, increased warmth or erythema. Results Reviewed Results Reviewed: Laboratory Tests 04/09/24 07/07/24 07/07/24 09:31 13:29 13:33 WBC 5.0 RBC 4.18 L Hgb 12.4 Hct 38.4 Plt Count 213 ESR 49 H Sodium 141 Potassium 4.0 Chloride 108 Carbon Dioxide 27 BUN 14 Creatinine 0.72 C-Reactive Protein 0.59 H 25-OH Vitamin D Total 19.8 L 12.7 L PTH Intact 80.8 H 80.3 H DEXA 02/2024 FINDINGS: LEFT FEMUR, NECK: Current: BMD 0.695 g/cm2, Z-score -0.8, T-score -2.5, osteoporosis. Prior: BMD 0.757 g/cm2. Baseline: BMD 0.619 g/cm2. LEFT FEMUR, TOTAL: Current: BMD 0.722 g/cm2, Z-score -0.8, T-score -2.3, osteopenia, 3.7% decrease from previous, 10.1% increase from baseline (<5% change is not significant). Prior: BMD 0.750 g/cm2. Baseline: BMD 0.656 g/cm2. AP SPINE L1-L4: Current: BMD 0.843 g/cm2, Z-score -1.4, T-score -2.8, osteoporosis, 2.9% increase from previous, 3.7% decrease from baseline (<5% change is not significant). Prior: BMD 0.819 g/cm2. Baseline: BMD 0.813 g/cm2. Assessment & Plan Assessment & Plan (1) Seronegative rheumatoid arthritis of multiple sites: Comment: Onset~ 2011?. 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 Methotrexate added 2015. 06/22: sulfasalazine added Hydroxychloroquine stopped 08/21 - retinal edema Patient reported eye exam 09/18, 04/22, 03 January 2022: Methotrexate held in preparation for shoulder surgery. Not restarted so far. Sulfasalazine continued. 2022 methotrexate and sulfasalazine restarted. However both ineffective Humira added 10/2023. Stopped 03/2024 ineffective. Sulfasalazine also stopped Abatacept denied Enbrel 05/2024 - 07/2024. Ineffective Code(s): M06.09 - Rheumatoid arthritis without rheumatoid factor, multiple sites Category: Medical Plan: #Seronegative RA Patient with seronegative rheumatoid arthritis still in a flare of her disease She did not get the medrol prescribed at the last visit Enbrel not effective Patient has tried and methotrexate, sulfasalazine, Plaquenil. She was also tried and failed 2 different anti TNF: Humira and Enbrel. Abatacept was denied by her insurance. We will need to switch to a different class of medications. No history of diverticulitis we will try IL 6 inhibitors. I think the infusion will be better for this patient given that infusions are able to be titrated up for efficacy versus the fixed dose of subcutaneous tocilizumab Plan - Stop Enbrel - Start Tocilizumab infusions 4mg/kg every 4 weeks - Medrol 4m tablets x 10 days, 2 tablets x 10 days then, 1 tablet x 10 days - Continue methotrexate for now - RTC 3 months - Labs before visit: CBC, CMP, ESR, CRP, hepatitis panel, T spot, lipid panel (2) Osteoporosis: Code(s): M81.0 - Age-related osteoporosis without current pathological fracture Category: Medical Qualifiers: Osteoporosis type: age-related Presence of current pathological fracture: without current pathological fracture Qualified Code(s): M81.0 - Age- related osteoporosis without current pathological fracture Plan: #Osteoporosis Patient with osteoporosis however has severe vitamin-D deficiency. Would need to normalize her vitamin-D prior to starting any treatment (3) Encounter for monitoring tocilizumab therapy: Code(s): Z51.81 - Encounter for therapeutic drug level monitoring; Z79.620 - M[facility] (current) use of immunosuppressive biologic Category: Medical Plan: #Long-term Use of Tocilizumab Discussed the risks and benefits of tocilizumab with the management of this patient's rheumatic condition. ? Benefits include decreased pain, improved mortality, improved quality of life Risks include LFT abnormalities, elevated triglycerides, GI perforations Contraindicated in a patient with history of diverticulitis Monitoring: ?CBC, CMP, triglycerides (4) Encounter for methotrexate monitoring: Code(s): Z51.81 - Encounter for therapeutic drug level monitoring; Z79.631 - M[facility] (current) use of antimetabolite agent Category: Medical Plan: #Long-term Current Use of Methotrexate Discussed with patient the benefits and risks of methotrexate for managing their rheumatic condition Benefits include reduced pain, reduced mortality, maintenance of remission and reduction of flares Risks include oral ulcers, photosensitivity, hepatotoxicity, hematologic toxicity, pneumonitis, flu-like symptoms (especially day after administration), nodulosis, lymphomas ? Limit alcohol and avoid Bactrim ? Monitoring: ?CBC, BMP, LFTs every 3-4 months and hepatitis serologies as needed Plan I spent 45 minutes reviewing the record and labs, taking a history, examining the patient, discussing the treatment plan and documenting in the medical record Orders: Orders Comprehensive Met. Panel 3 Months M06.09 - Rheumatoid arthritis without rheumatoid factor, multiple sites T Spot TB 3 Months M06.09 - Rheumatoid arthritis without rheumatoid factor, multiple sites Lipid Panel 3 Months M06.09 - Rheumatoid arthritis without rheumatoid factor, multiple sites Complete Blood Count Auto Diff 3 Months M06.09 - Rheumatoid arthritis without rheumatoid factor, multiple sites C Reactive Protein 3 Months M06.09 - Rheumatoid arthritis without rheumatoid factor, multiple sites Erythrocyte Sedimentation Rate 3 Months M06.09 - Rheumatoid arthritis without rheumatoid factor, multiple sites Hepatitis A,B,C Profile 3 Months M06.09 - Rheumatoid arthritis without rheumatoid factor, multiple sites Referrals Infusion Center Notification M06.09 - Rheumatoid arthritis without rheumatoid factor, multiple sites Medications: New methylprednisolone (Medrol) 4 mg orally; Take 3 tablets for 10 days, then 2 tablets for 10 days then 1 tablet for 10 days then stop 60 tabs 0RF M06.09 - Rheumatoid arthritis without rheumatoid factor, multiple sites Refilled methotrexate sodium 7.5 mg (3 x 2.5 mg) PO QWEEK 90 days 39 tabs 1RF M06.09 - Rheumatoid arthritis without rheumatoid factor, multiple sites folic acid 1 mg PO DAILY 90 tabs 1RF M06.09 - Rheumatoid arthritis without rheumatoid factor, multiple sites Discontinued methylprednisolone (Medrol) Take 3 tablets daily for 2 weeks then 2 tablets daily for 2 weeks then 1 tablet daily for 2 weeks then stop Discontinued Reason: Doctor's Order 4 mg PO DAILY 6 weeks 90 tabs 0RF etanercept (Enbrel SureClick) Discontinued Reason: Doctor's Order 50 mg subcut QWEEK 90 days 13 mL 2RF M06.9 - Rheumatoid arthritis, unspecified Coding Level of Care Code Est Pt Level 5 (58307) Complex EM visit Add On G2211 Diagnoses Seronegative rheumatoid arthritis of multiple sites M06.09 Age-related osteoporosis without current pathological fracture M81.0 Osteoporosis type: age-related Presence of current pathological fracture: without current pathological fracture Encounter for monitoring tocilizumab therapy Z51.81; Z79.620 Encounter for methotrexate monitoring Z51.81; Z79.631
[2024-07-22 11:11] VITALS: BP 112/60; PULSE 90; O2SAT 92; BMI 24.8
== END 2024-07-22 11:47 | disposition home or self-care (01) ==
PROVIDERS: PCP Family Medicine; Visit Provider Student in an Organized Health Care Education/Training Program
DX: M06.09 Rheumatoid arthritis without rheumatoid factor, multiple sites (principal); M81.0 Age-related osteoporosis without current pathological fracture; Z51.81 Encounter for therapeutic drug level monitoring; Z79.620 Long term (current) use of immunosuppressive biologic; Z79.631 Long term (current) use of antimetabolite agent
CPT/HCPCS: 99215; G2211

== ENCOUNTER → 2024-07-22 11:02 | Outpatient (BNVA) | payer OTHER, SELFPAY | PROVIDERS: PCP Family Medicine; Visit Provider Student in an Organized Health Care Education/Training Program | DX: M06.09 Rheumatoid arthritis without rheumatoid factor, multiple sites (principal); M81.0 Age-related osteoporosis without current pathological fracture; Z51.81 Encounter for therapeutic drug level monitoring; Z79.620 Long term (current) use of immunosuppressive biologic; Z79.631 Long term (current) use of antimetabolite agent | CPT/HCPCS: 99212 ==

== ENCOUNTER 2024-07-29 13:53 | Outpatient (AMB) | payer OTHER, SELFPAY ==
--- NOTE | 2024-07-29 13:55 | A.OFFVIS_ITS ---
Intake Visit Reasons: 1yr follow up s/p Arterial US 06/17/24 Intake Note: Patient presents for follow up arterial US performed on 06/17/24. No complaints. Accompanied by: DRESSAGE INSTRUCTOR Allergies lobster Allergy (Uncoded 07/07/24 12:46) Nausea and Vomiting HPI HPI 1yr follow up s/p Arterial US 06/17/24: Details: Very pleasant 74-year-old female presents for follow-up regarding her aortic aneurysm. She had surveillance done but a month ago and is following up for 1 year surveillance. She is asymptomatic from this. She quit smoking about 10 years ago and is a nondiabetic. She has had no significant interval changes. She now presents for follow-up [facility] Medical History Long-term use of Plaquenil Encounter for methotrexate monitoring Encounter for monitoring tocilizumab therapy Vitamin D deficiency Hypothyroxinemia Osteoarthritis (arthritis due to wear and tear of joints) Chronic venous insufficiency Subclavian artery stenosis Carotid arterial disease AAA (abdominal aortic aneurysm) Diabetes Elevated cholesterol COPD (chronic obstructive pulmonary disease) Asthma PVD (peripheral vascular disease) CAD (coronary artery disease) HTN (hypertension) Surgical History History of arthroplasty of right shoulder Hx of removal of cyst Hx of endoscopy History of colonoscopy Family History Father No problems noted. Mother Family history of high blood pressure Hx of type 1 diabetes mellitus Social History Are you a primary director of career services to a significant other at home: No Do you presently have visiting nurse or other home services: Yes (DRESSAGE INSTRUCTOR - daily) Alcohol intake: never Patient Tobacco Use Status: Former Tobacco user Tobacco use type: Cigarette service: No Current occupational status: disabled Current occupation: left hand Review of Systems Const All systems reviewed & are unremarkable except as noted in HPI and below Reports no additional complaints ENT Reports Normal hearing present Card Denies chest pain, Denies chest pain at rest, Denies chest pain with activity and Denies pedal edema Resp Denies cough GI Denies abdominal pain Musc Denies abnormal gait, Denies muscle cramps and Denies radiating pain into limb Skin/Breast Denies skin ulcer and Denies wounds Neuro Reports Normal hearing present and Denies abnormal gait Psych Reports no additional complaints Physical Exam Const General: cooperative, healthy appearing and comfortable Orientation/consciousness: oriented to person, oriented to place and oriented to time HEENT Head: Yes normal to inspection Neck Neck: Yes normal visual inspection Carotids: no bruits Chest Chest palpation & inspection: normal inspection of the chest Resp Effort & Inspection: normal respiratory effort and able to speak in complete sentences Auscultation: clear to auscultation bilaterally, no crackles, no rales, no rhonchi and no wheezes Cardio Rate: regular rate Rhythm: regular rhythm Heart sounds: S1 normal heart sound present and S2 normal heart sound present Bruits: no carotid bruits Peripheral pulses: Peripheral pulses 2+ throughout GI Inspection: Yes normal to inspection Skin Wounds: no wounds Hair: normal Neuro General: oriented to person, oriented to place and oriented to time Cranial nerves: Yes CN's II-XII intact bilaterally and Yes Normal hearing present Cognition (Neuro): normal cognition Motor exam (neuro): 5/5 motor strength present throughout Extrem Other: venous exam: No significant superficial varicosities or spider telangiectasias, minimal edema General: No clubbing, No cyanosis and No edema Psych Appearance: grossly normal Mental Status: mental status grossly normal Speech and movement: Normal speech and movement present Results Reviewed Results Reviewed: Ultrasound dated 06/16/2024 demonstrates aorta measuring 4.1 x 3.9 cm distally. Written report and images were reviewed. Assessment & Plan Assessment & Plan (1) AAA (abdominal aortic aneurysm): Code(s): I71.4 - Abdominal aortic aneurysm, without rupture Category: Medical Qualifiers: Abdominal aorta location: infrarenal aorta Presence of rupture: without rupture Qualified Code(s): I71.43 - Infrarenal abdominal aortic aneurysm, witho ut rupture Plan: In short patient has radiologic evidence of a AAA on 3.9 on ultrasound. We have discussed the pathophysiology of aortic aneurysms and the risk of ruptures. We have discussed rupture risk based on size. In addition we have discussed conservative measures and risk factor modification for prevention of increase in size of the aneurysm. the patient is scheduled for surveillance follow-up in approximately 1 year. Thank you for allowing us to participate in the care of this patient Orders: Orders US abdominal aortic aneurysm 1 Year I71.43 - Infrarenal abdominal aortic aneurysm, without rupture Coding Level of Care Code Est Pt Level 4 (96817) Complex EM visit Add On G2211 Diagnoses Infrarenal abdominal aortic aneurysm (AAA) without rupture I71.43 Abdominal aorta location: infrarenal aorta Presence of rupture: without rupture
--- OUTSIDE RECORDS SUMMARY | 2024-07-29 17:20 | XMS_ITS | Encounter Summary ---
Author Organization [employer] Address [address] [facility] [address] [address] [place] [address] Care Team Providers Care Management Lecturer Name Role Phone Teresita Munroe DO Primary Care Provider Reason for Visit * Reason Onset Date Comments Recall Letter 07/22/2024 Recall Letter se nt 07/22/24. Encounter Details Date Type Department Care Team ([facility] st Contact Info) Description 07/22/2024 Telephone [facility] [address] [place] [address] Teresita Munroe DO [address] [place] [address] Recall Letter (Recall Letter sent 07/22/24.) Social History Tobacco Use Types Packs/Day Years [...] encounter Miscellaneous Notes * Telephone Encounter - Tiffany Adhikari MA - 07/22/2024 10:22 AM EST OV-DM. L/M to patient vm to call PCP office, Recall Letter sent 07/22/24. documented in this encounter Plan of Treatment Upcoming Encounters Date Type Department Care Team (Late st Contact Info) Description 09/17/2024 11:00 AM EDT Office Visit [facility] [address] [place] [address] Teresita Munroe DO [address] [place] [address] documented as of this encounter Visit Diagnoses Not on filedocumented in this encounter Additional Health Concerns Assessment Noted Time PHQ-9 Depression Total Score: 5 01/22/20 24 9:55 AM EDT documented as of this encounter Care Teams Management Lecturer Relationship Specialty Start Date End Date Teresita Munroe DO [address] [place] [address] PCP - General Family Medicine 07/28/14 documented as of this encounter
--- OUTSIDE RECORDS SUMMARY | 2024-07-29 17:20 | XMS_ITS | Encounter Summary ---
Author Organization [employer] Address [address] [facility] [address] [place] [address] Care Team Providers Care Coal Trimmer Machine Operator Name Role Phone LudwigTeresita Primary Care Provider [phone] Encounter Details Date Type Department Care Team [...] as of this encounter Plan of Treatment Upcoming Encounters Date Type Department Care Team (Late st Contact Info) Description 09/17/2024 11:00 AM EDT Office Visit [facility] [address] [place], [place] [phone] Teresita Munroe DO [address] [place], [place] [phone] documented as of this encounter Procedures Procedure Name Priority Date/Time Associated Diagnosis Comments PTH, INTACT WITHOUT CALCIUM Routine 07/07/2024 1:33 PM EST VITAMIN D,25-OH,TOTAL,IA Routine 07/07/2024 1:29 PM EST ALBUMIN Routine 07/07/2024 1:29 PM EST BASIC METABOLIC PANEL Routine 07/07/2024 1:29 PM EST documented in this encounter Results * (ABNORMAL) PTH, Intact Without Calcium (07/07/2024 1:33 PM EST) Parathyroid Hormone, Intact 80.3(H) 8.7 - 77.1 pg/mL [facility] 07/07/2024 1:33 PM EST 07/07/2024 1:33 PM EST us Generic External Data Provider LAB BLOOD ORDERAB LES Final Result [facility] [address] [place] [phone] * (ABNORMAL) Vitamin D, 25-Hydroxy, Total, Immunoassay (07/07/2024 1:29 PM EST) Vitamin D 25-OH Total 12.7(L) >30 ng/mL [facility] Comment:Health Based Referen ce Values*< 20 ng/mL [id number] ng/mL Insufficient> 30 ng/mL Sufficient*Santos MARCELINO. N [...] confirmed with another method such as LC-MS/MS. 07/07/2024 1:29 PM EST 07/07/2024 1:33 PM EST us Generic External Data Provider LAB BLOOD ORDERAB LES Final Result Performing Organization Address City/[facility]/ZIP Co de Phone Number [facility] [address] [place] [phone] * Albumin (07/07/2024 1:29 PM EST) Albumin Level 4.0 3.5 - 5.0 g/dL [facility] 07/07/2024 1:29 PM EST 07/07/2024 1:33 PM EST Generic External Data Provider LAB BLOOD ORDERAB LES Final Result Performing Organization Address [facility]/ZIP Co de Phone Number [facility] [address] [place] [phone] * (ABNORMAL) Basic Metabolic Panel (07/07/2024 1:29 PM EST) Sodium 141 135 - 145 mmol/L [facility] Potassium 4.0 3.3 - 5.1 mmol/L [facility] Chloride 108 96 - 108 mmol/L [facility] Carbon Dioxide 27 22 - 29 mmol/L [facility] Anion Gap 10(L) 12 - 20 [facility] Urea Nitrogen (BUN) 14 9 - 16 mg/dL [facility] Creatinine, Serum 0.72 0.5 - 1.4 mg/dL [facility] Estimated Glomerular Filt Rate >60 [facility] Comment:Chronic Kidney Disea se: Estimated GFR < 60 mL/min/1.59z0Cctysq Kidney Disease: Estimated GFR < 15 mL/min/1.73m2 Glucose 98 60 - 115 mg/dL [facility] Calcium 9.5 8.4 - 10.2 mg/dL [facility] 07/07/2024 1:29 PM EST 07/07/2024 1:33 PM EST us Generic External Data Provider LAB BLOOD ORDERAB LES Final Result [facility] [address] [place] [phone] documented in this encounter Visit Diagnoses Not on filedocumented in this encounter Additional Health Concerns Assessment Noted Time PHQ-9 Depression Total Score: 5 01/22/20 24 9:55 AM EDT documented as of this encounter Care Teams Coal Trimmer Machine Operator Relationship Specialty Start Date End Date Teresita Munroe DO [address] [place] [phone] PCP - General Family Medicine 07/28/14 documented as of this encounter
--- OUTSIDE RECORDS SUMMARY | 2024-07-29 17:20 | XMS_ITS | Encounter Summary ---
Author Organization [employer] Address [address] [facility] 7t [place] [address] Care Team Providers Care Abrasive Mixer Helper Name Role Phone Kamille Munroenifer Primary Care Provider + [phone] Encounter Details Date Type Department Care Team ([facility] st Contact Info) Description 09/14/2023 Orders Only [facility] [address] [place] [address] ProviderFlor MD Social History Tobacco Use Types [...] Description 09/17/2024 11:00 AM EDT Office Visit [facility] [address] [place] [address] Teresita Munroe DO [address] [place] [address] documented as of this encounter Procedures Procedure Name Priority Date/Time Associated Diagnosis Comments HM COLONOSCOPY Routine 11/10/2020 10:20 AM EDT HM COLONOSCOPY Routine 11/03/2014 10:26 AM EDT documented in this encounter Results * Hm Colonoscopy (11/10/2020 10:20 AM EDT) Historical Provider HEALTH MAINTENANCE Final Result * Hm Colonoscopy (11/03/2014 10:26 AM EDT) Historical Provider HEALTH MAINTENANCE Final Result documented in this encounter Visit Diagnoses Not on filedocumented in this encounter Care Teams Abrasive Mixer Helper Relationship Specialty Start Date End Date Teresita Munroe DO [address] [place] [address] PCP - General Family Medicine 07/28/14 documented as of this encounter
--- OUTSIDE RECORDS SUMMARY | 2024-07-29 17:20 | XMS_ITS | Encounter Summary ---
Author Organization [employer] Address [address] [facility] 7t [place] [address] Care Team Providers Care Table Games Dealer Name Role Phone Teresita Munroe DO Primary Care Provider [phone]- [phone] Reason for Visit * Reason Onset Date Comments Med Refill 05/11/2023 Encounter Details Date Type Department Care Team (Late st Contact Info) Description 05/11/2023 Refill [facility] [address] [place] [address] Teresita Munroe DO [address] [place] [address] Chronic pain of both shoulders (Primary Dx) [...] traMADol (Ultram) 50 MG tablet [facility] [address] [place] [address] documented in this encounter Plan of Treatment Upcoming Encounters Date Type Department Care Team (Late st Contact Info) Description 09/17/2024 11:00 AM EDT Office Visit [facility] [address] [place] [address] Teresita Munroe DO [address] [place] [address] documented as of this encounter Visit Diagnoses Diagnosis Chronic pain of both shoulders- Primary documented in this encounter Care Teams Table Games Dealer Relationship Specialty Start Date End Date Teresita Munroe DO [address] [place] [id number] PCP - General Family Medicine 07/28/14 documented as of this encounter
--- OUTSIDE RECORDS SUMMARY | 2024-07-29 17:20 | XMS_ITS | Encounter Summary ---
Author Organization [employer] Address [address] [facility] 7t [place] [address] Care Team Providers Care Comb Fixer Name Role Phone Teresita Munroe DO Primary Care Provider +1- [phone] Reason for Visit * Reason Onset Date Comments Med Refill 07/08/2024 Encounter Details Date Type Department Care Team (Late st Contact Info) Description 07/08/2024 Refill [facility] PEDS [address] [place] [address] Teresita Munroe DO [address] [facility] [place] [address] Chronic pain of both shoulders Social History Tobacco Use Types Packs/Day Years [...] your housing situation today? I have poly sing 01/08/[address] you li [...] Addendum Note - Kurt Beach RN - 07/08/2024 2:32 PM ESTAddended by: K[place] on: 07/08/2024 02:32 PM Modules accepted: Orders * Telephone Encounter - Jia Escobar LPN - 07/08/2024 1:52 PM EST Received request on traMADol (Ultram) 50 MG tablet documented in this encounter Plan of Treatment Upcoming Encounters Date Type Department Care Team (Late st Contact Info) Description 09/17/2024 11:00 AM EDT Office Visit [facility] [address] [place] [address] Teresita Munroe DO [address] [place] [address] documented as of this encounter Visit Diagnoses Diagnosis Chronic pain of both shoulders documented in this encounter Additional Health Concerns Assessment Noted Time PHQ-9 Depression Total Score: 5 01/22/20 24 9:55 AM EDT documented as of this encounter Care Teams Comb Fixer Relationship Specialty Start Date End Date Teresita Munroe DO [address] [place] [id number] PCP - General Family Medicine 07/28/14 documented as of this encounter
--- OUTSIDE RECORDS SUMMARY | 2024-07-29 17:20 | XMS_ITS | Encounter Summary ---
Author Organization [employer] Address [address] [facility] 7t [place] [address] Care Team Providers Care Administration Internship Name Role Phone Teresita Munroe DO Primary Care Provider [phone]- [phone] Reason for Visit * Reason Comments Med Refill Encounter Details Date Type Department Care Team ([facility] st Contact Info) Description 07/02/2023 Refill [facility] [address] [place] [address] Teresita Munroe DO [address] [place] [address] Chronic obstructive pulmonary disease, unspecified COPD type [...] Description 09/17/2024 11:00 AM EDT Office Visit [facility] [address] [place] [address] Teresita Munroe DO [address] [place] [address] documented as of this encounter Visit Diagnoses Diagnosis Chronic obstructive pulmonary disease, unspecified COPD type (CMS/HCC) documented in this encounter Care Teams Administration Internship Relationship Specialty Start Date End Date Treesita Munroe DO [address] [place] [address] PCP - General Family Medicine 07/28/14 documented as of this encounter
--- OUTSIDE RECORDS SUMMARY | 2024-07-29 17:20 | XMS_ITS | Encounter Summary ---
Author Organization [employer] Address [address] [facility] 7t [place] [address] Care Team Providers Care Electrical Plumbing Supervisor Name Role Phone Teresita Munroe DO Primary Care Provider Encounter Details Date Type Department Care Team (Latest Contact Info) Description 12/22/2021 Abstract [facility] Dental, Provider, DDS Social History [...] Description 09/17/2024 11:00 AM EDT Office Visit [facility] [address] [place] [address] Teresita Munroe DO [address] [place] [address] documented as of this encounter Visit Diagnoses Not on filedocumented in this encounter Care Teams Electrical Plumbing Supervisor Relationship Specialty Start Date End Date Teresita Munroe DO [address] [place] [address] PCP - General Family Medicine 07/28/14 documented as of this encounter
--- OUTSIDE RECORDS SUMMARY | 2024-07-29 17:20 | XMS_ITS | Encounter Summary ---
Author Organization [employer] [facility] Address [address] [facility] 7t [place] [address] Care Team Providers Care Presser Machine Name Role Phone Teresita Munroe DO Primary Care Provider Encounter Details Date Type Department Care Team (Latest Contact Info) Description 2019 Abstract [facility] CON[facility] Dental, Provider, DDS Social History [...] Description 09/17/2024 11:00 AM EDT Office Visit [facility] [address] [place] [address] Teresita Munroe DO [address] [place] [address] documented as of this encounter Visit Diagnoses Not on filedocumented in this encounter Care Teams Presser Machine Relationship Specialty Start Date End Date Teresita Murnoe DO [address] [place] [address] PCP - General Family Medicine 07/28/14 documented as of this encounter
--- OUTSIDE RECORDS SUMMARY | 2024-07-29 17:20 | XMS_ITS | Encounter Summary ---
Author Organization [employer] Address [address] [facility] 7t [place] [address] Care Team Providers Care Extrusion Utility Worker Name Role Phone Teresita Munroe DO Primary Care Provider Encounter Details Date Type Department Care Team (Late st Contact Info) Description 06/15/2022 Abstract [facility] ADULT DENTAL [address] [place] [address] Jelena Morgan DDS [address] [place] [address] Social History Tobacco Use Types Packs/Day Years [...] Encounters Date Type Department Care Team (Late Contact Info) Description 09/17/2024 11:00 AM EDT Office Visit [facility] MEDICINE [address] [place] [address] Teresita Munroe DO [address] [place] [address] documented as of this encounter Visit Diagnoses Not on filedocumented in this encounter Care Teams Extrusion Utility Worker Relationship Specialty Start Date End Date Teresita Munroe DO [address] [place] [address] PCP - General Family Medicine 07/28/14 documented as of this encounter
--- OUTSIDE RECORDS SUMMARY | 2024-07-29 17:20 | XMS_ITS | Encounter Summary ---
Author Organization [employer] Address [address] [facility] 7t [place] [address] Care Team Providers Care Traffic Operator Name Role Phone Teresita Munroe DO Primary Care Provider [phone]- [phone] Reason for Visit * Reason Comments Med Refill Encounter Details Date Type Department Care Team ([facility] st Contact Info) Description 01/03/2024 Refill [facility] MED & PEDS [address] [place], [place] [phone] Teresita Munroe DO [address] [place] [address] 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 complication, unspecified whether buttermaker insulin use (CMS/HCC); Osteopenia, unspecified location Social [...] Description 09/17/2024 11:00 AM EDT Office Visit [facility] [address] [place] [address] Teresita Munroe DO [address] [place] [address] documented as of this encounter Visit Diagnoses Diagnosis 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 complication, unspecified whether shelter insulin use ([facility]) Osteopenia, unspecified location documented in this encounter Care Teams Traffic Operator Relationship Specialty Start Date End Date Teresita Munroe DO [address] [place] [address] PCP - General Family Medicine 07/28/14 documented as of this encounter
--- OUTSIDE RECORDS SUMMARY | 2024-07-29 17:20 | XMS_ITS | Encounter Summary ---
Author Organization [employer] Address [address] [facility] 7t h Floor [place] [id number] Care Team Providers Care Key Operator Name Role Phone Teresita Munroe DO Primary Care Provider +1- [phone] Reason for Visit * Reason Onset Date Comments Medication Question 07/23/2024 Encounter Details Date Type Department Care Team ([facility] st Contact Info) Description 07/23/2024 Telephone [facility] MEDICINE [address] [place] [address] Teresita Munroe DO [address] [place] [address] Medication Question Social History Tobacco Use Types Packs/Day Years [...] encounter Miscellaneous Notes * Telephone Encounter - Lanie Sherwood RN - 07/23/2024 12:00 PM EST TC placed to pt via S cement sack breaker (Dread ID#[id number]) to do a status check and advise to come to [facility] for [facility] if pt is still experiencing symptoms. No answer, LVM to call office back and ask to speak to [facility] Nurses. * Telephone Encounter - Suzan Durbin - 07/23/2024 11:40 AM EST Tc from pt FLAG SIGNALMAN Anna requesting a refill on predniSONE (Deltasone) 20 MG tablet. Anna stated medication has helped but pt is requesting an additional few days of medication. Pt was seen at [facility] on 07/15/24 If any questions contact Anna at [phone] (arabic) Pharmacy:[facility] documented in this encounter Plan of Treatment Upcoming Encounters Date Type Department Care Team ([facility] st Contact Info) Description 09/17/2024 11:00 AM EDT Office Visit [address] [phone] Teresita Munroe DO [address] [place] [address] documented as of this encounter Visit Diagnoses Not on filedocumented in this encounter Additional Health Concerns Assessment Noted Time PHQ-9 Depression Total Score: 5 01/22/20 24 9:55 AM EDT documented as of this encounter Care Teams Key Operator Relationship Specialty Start Date End Date Teresita Munroe DO [address] [place] [address] PCP - General Family Medicine 07/28/14 documented as of this encounter
--- OUTSIDE RECORDS SUMMARY | 2024-07-29 17:20 | XMS_ITS | Encounter Summary ---
Author Organization [employer] Address [address] [facility] [address] h Floor [place] [phone] Care Team Providers Care Boarding House Cook Name Role Phone LudwigTeresita Primary Care Provider [phone] Reason for Visit * Reason Comments Cough Nasal Congestion Encounter Details Date Type Department Care Team ([facility] st Contact Info) Description 07/15/2024 10:20 AM EST Office Visit [facility] [address], [place] [phone] Chris Emanuel MD [address] [place] [address] 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 complication, without long-term current use of insulin ([facility]) (Primary Dx); Influenza B; COVID-19; Chronic obstructive pulmonary disease, unspecified COPD type ([facility]/HCC); Rheumatoid arthritis, involving unspecified site, unspecified whether rheumatoid factor present ([facility]) Social History Tobacco Use Types Packs/Day Years [...] the past 12 months, has t he [employer], gas, oil or water company threatened to [...] AM EDT documented as of this encounter Last Filed Vital Signs Vital Sign Reading Time Taken Comments Blood Pressure 123/70 07/15/2024 10:41 AM EST Pulse 92 07/15/2024 10:41 AM EST Temperature 37.1 ??C (98.8 ??F) 07/15/2024 10:[address] Respiratory Rate 19 07/15/2024 10:41 AM EST Oxygen Saturation 95% 07/15/2024 10:41 AM EST Inhaled Oxygen Concentration - - Weight 65 kg (143 lb 6.4 oz) 07/15/2024 10:41 AM EST Height - - Body Mass Index 26.23 01/22/2024 9:51 AM EDT documented in this encounter Progress Notes * Chris Emanuel MD - 07/15/2024 10:20 AM EST Subjective Patient ID: Aspen Farah is a 74 y.o. female. 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 Also has back pain, runny nose, wheezing, SOB. No fever, chills, n/v/d. Taking p.o. well. Using albuterol nb 4x/day. Ran out of albuterol HFA before she became ill. Does not use Incruse Ellipta anymore. Takes Singulair. Lives alone. Never smoked. Has [employer]. Patient Active Problem List Diagnosis Abdominal aortic aneurysm (CMS/HCC) Aseptic necrosis of head of humerus (CMS/HCC) Chronic obstructive lung disease (CMS/HCC) Dysthymia Generalized anxiety disorder Mixed hyperlipidemia Obstructive sleep apnea Peripheral arterial occlusive disease (CMS/HCC) Rheumatoid arthritis (CMS/HCC) Fatty liver Type 2 diabetes mellitus (CMS/HCC) Vitamin D deficiency Edentulous alveolar ridge Mild cognitive impairment Osteoporosis without current pathological fracture Chronic pain of both shoulders Healthcare maintenance Borderline abnormal TFTs The following portions of the chart were reviewed this encounter and updated as appropriate: Tobacco Allergies Meds Problems Med Hx Surg Hx Fam Hx Review of Systems Constitutional: Negative for fever. HENT: Positive for rhinorrhea. Respiratory: Positive for cough, shortness of breath and wheezing. Cardiovascular: Negative for chest pain. Gastrointestinal: Negative for abdominal pain. Musculoskeletal: Positive for back pain and myalgias. Skin: Negative for rash. Neurological: Negative for headaches. Objective Physical Exam Constitutional: Appearance: Normal appearance. HENT: Right Ear: Tympanic membrane, ear canal and external ear normal. Left Ear: Tympanic membrane, ear canal and external ear normal. Nose: Nose normal. Mouth/Throat: Mouth: Mucous membranes are moist. Pharynx: Oropharynx is clear. Eyes: Conjunctiva/sclera: Conjunctivae normal. Pupils: Pupils are equal, round, and reactive to light. Cardiovascular: Rate and Rhythm: Normal rate and regular rhythm. Heart sounds: No murmur heard. Pulmonary: Effort: Pulmonary effort is normal. Breath sounds: Wheezing (mild diffuse bilat expiratory) present. Musculoskeletal: General: Normal range of motion. Cervical back: No tenderness. Skin: Findings: No rash. Neurological: Mental Status: She is alert. Gait: Gait is intact. Psychiatric: Mood and Affect: Mood normal. Behavior: Behavior normal. Procedures Assessment/Plan Diagnoses and all orders for this visit: Influenza B + rapid Flu B test Prescribed acetaminophen. Lots of liquids. Sx started 2 weeks ago; Tamiflu not indicted. Given written Flu instructions. Rtc if not improving. - POCT Rapid COVID Ag - Influenza A (ID NOW Rapid Molecular) - Influenza B (ID NOW Rapid Molecular) COVID-19 + rapid Covid test. Paxlovid not indicated because sx started 2 weeks ago. Prescribed home pulse oximeter. Given written Covid instructions. Rtc if not improving. - POCT Rapid COVID Ag - Influenza A (ID NOW Rapid Molecular) - Influenza B (ID NOW Rapid Molecular) Chronic obstructive pulmonary disease, unspecified COPD type ([facility]) Refilled albuterol HFA, Duoneb solution, Incruse Ellipta. Prescribed spacer for HFA, prednisone Rtc if not improving. - ipratropium-albuterol (Duo-Neb) 0.5-2.5 mg/3 mL nebulizer solution; Take 3 mL by nebulization if needed in the morning, at noon, in the evening, and at bedtime for wheezing or shortness of breath. - Umeclidinium Kalida (Incruse Ellipta) 62.5 MCG/ACT aerosol powder ; Inhale 1 Act (62.5 mcg) Onceper day. 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 complication, without long-term current use of insulin ([facility]) Refilled alcohol pads, lancets, test strips. - Alcohol Swabs (Alcohol Prep) pads; 1 each 3 times daily. Other orders - albuterol (Ventolin HFA) 108 (90 Base) MCG/ACT inhaler; Inhale 2 puffs every 4 (four) hours if needed for wheezing. - Spacer/Aero-Holding Chambers (OptiChamber Khushi) misc; 1 each every 4 (four) hours if needed (asthma). - predniSONE (Deltasone) 20 MG tablet; Take 2 tablets (40 mg) by mouth Once per day for 5 days. - acetaminophen (Tylenol) 500 MG tablet; Take 2 tablets (1,000 mg) by mouth every 6 (six) hours if needed for moderate pain or fever for up to 25 doses. - Misc. Devices (Pulse Oximeter For Finger) misc; 1 each 2 times daily. - Lancets 33G misc; 1 each 3 times daily. - FREESTYLE LITE test strip; Use as instructed documented in this encounter Miscellaneous Notes * Patient Education Note - Chris Emanuel MD - 07/15/2024 4:52 PM EST Images from the original note were not included. Patient Education Table of Contents Influenza, Adult To view videos and all your education online visit, [email or web address] or scan this QR code with your smartphone. Access to this content will in one year. Influenza, Adult Influenza is also called the flu. It's an infection that affects your respiratory tract. This includes your nose, throat, windpipe, and lungs. The flu is contagious. This means it spreads easily from person to person. It causes symptoms that are like a cold. It can also cause a high fever and body aches. What are the causes? The flu is caused by the influenza virus. You can get it by: Breathing in droplets that are in the air after an infected person coughs or sneezes. Touching something that has the virus on it and then touching your mouth, nose, or eyes. What increases the risk? You may be more likely to get the flu if: You don't wash your hands often. You're near a lot of people during cold and flu season. You touch your mouth, eyes, or nose without washing your hands first. You don't get a flu shot each year. You may also be more at risk for the flu and serious problems, such as a lung infection called pneumonia, if: You're older than 65. You're . Your immune system is weak. Your immune system is your body's defense system. You have a long-term, or chronic, condition, such as: ? Heart, kidney, or lung disease. ? Diabetes. ? A liver disorder. ? Asthma. You're very overweight. You have anemia. This is when you don't have enough red blood cells in your body. What are the signs or symptoms? Flu symptoms often start all of a sudden. They may last 4?14 days and include: Fever and chills. Headaches, body aches, or muscle aches. Sore throat. Cough. Runny or stuffy nose. Discomfort in your chest. Not wanting to eat as much as normal. Feeling weak or tired. Feeling dizzy. Nausea or vomiting. How is this diagnosed? The flu may be diagnosed based on your symptoms and medical history. You may also have a physical exam. A swab may be taken from your nose or throat and tested for the virus. How is this treated? If the flu is found early, you can be treated with antiviral medicine. This may be given to you by mouth or through an IV. It can help you feel less sick and get better faster. Taking care of yourself at home can also help your symptoms get better. Your health care provider may tell you to: Take eoxr-org-fozyumk medicines. Drink lots of fluids. The flu often goes away on its own. If you have very bad symptoms or problems caused by the flu, you may need to be treated in a hospital. Follow these instructions at home: Activity Rest as needed. Get lots of sleep. Stay home from work or school as told by your provider. ? Leave home only to go see your provider. ? Do not leave home for other reasons until you don't have a fever for 24 hours without taking medicine. Eating and drinking Take an oral rehydration solution (ORS). This is a drink that is sold at pharmacies and stores. Drink enough fluid to keep your pee pale yellow. Try to drink small amounts of clear fluids. These include water, ice chips, fruit juice mixed with water, and low-calorie sports drinks. Try to eat bland foods that are easy to digest. These include bananas, applesauce, rice, lean meats, toast, and crackers. Avoid drinks that have a lot of sugar or caffeine in them. These include energy drinks, regular sports drinks, and soda. Do not drink alcohol. Do not eat spicy or fatty foods. General instructions Take your medicines only as told by your provider. Use a cool mist humidifier to add moisture to the air in your home. This can make it easier for youto breathe. You should also clean the humidifier every day. To do so: ? Empty the water. ? Pour clean water in. Cover your mouth and nose when you cough or sneeze. Wash your hands with soap and water often and for at least 20 seconds. It's extra important to do so after you cough or sneeze. If you can't use soap and water, use hand waste picker. How is this prevented? Get a flu shot every year. Ask your provider when you should get your flu shot. Stay away from people who are sick during fall and winter. Fall and winter are cold and flu season. Contact a health care provider if: You get new symptoms. You have chest pain. You have watery poop, also called diarrhea. You have a fever. Your cough gets worse. You start to have more mucus. You feel like you may vomit, or you vomit. Get help right away if: You become short of breath or have trouble breathing. Your skin or nails turn blue. You have very bad pain or stiffness in your neck. You get a sudden headache or pain in your face or ear. You vomit each time you eat or drink. These symptoms may be an emergency. Call 911 right away. Do not wait to see if the symptoms will go away. Do not drive yourself to the hospital. This information is not intended to replace advice given to you by your health care provider. Make sure you discuss any questions you have with your health care provider. Document Released: 2001-05-18 Document Updated: 2024-02-21 Document Reviewed: 2023-06-28 [employer] Patient Education ? 2023 [employer]. * Patient Education Note - Chris Emanuel MD - 07/15/2024 4:46 PM EST Images from the original note were not included. Patient Education Table of Contents COVID-19 To view videos and all your education online visit, [email or web address] or scan this QR code with your smartphone. Access to this content will in one year. COVID-19 COVID-19 is an infection caused by a virus called SARS-CoV-2. This type of virus is called a coronavirus. People with COVID-19 may: Have little to no symptoms. Have mild to moderate symptoms that affect their lungs and breathing. Get very sick. What are the causes? COVID-19 is caused by a virus. This virus may be in the air as droplets or on surfaces. It can spread from an infected person when they cough, sneeze, speak, sing, or breathe. You may become infectedif: You breathe in the infected droplets in the air. You touch an object that has the virus on it. What increases the risk? You are at risk of getting COVID-19 if you have been around someone with the infection. You may be more likely to get very sick if: You are 65 years old or older. You have certain medical conditions, such as: ? Heart disease. ? Diabetes. ? Chronic respiratory disease. ? Cancer. ? . You are immunocompromised. This means your body cannot fight infections easily. You have a disability or trouble moving, meaning you're immobile. What are the signs or symptoms? People may have different symptoms from COVID-19. The symptoms can also be mild to severe. They often show up in 5?6 days after being infected. But they can take up to 14 days to appear. Common symptoms are: Cough. Feeling tired. New loss of taste or smell. Fever. Less common symptoms are: Sore throat. Headache. Body or muscle aches. Diarrhea. A skin rash or odd-colored fingers or toes. Red or irritated eyes. Sometimes, COVID-19 does not cause symptoms. How is this diagnosed? COVID-19 can be diagnosed with tests done in the lab or at home. Fluid from your nose, mouth, or lungs will be used to check for the virus. How is this treated? Treatment for COVID-19 depends on how sick you are. Mild symptoms can be treated at home with rest, fluids, and oxgw-hxb-ghufrim medicines. Severe symptoms may be treated in a hospital intensive care unit (ICU). If you have symptoms and are at risk of getting very sick, you may be given a medicine that fights viruses. This medicine is called an antiviral. How is this prevented? To protect yourself from COVID-19: 1. Know your risk factors. Get vaccinated. If your body cannot fight infections easily, talk to your provider about treatment to help prevent COVID-19. Stay at least 1 meter away from others. Wear a well-fitted mask when: You can't stay at a distance from people. You're in a place with poor air flow. Try to be in open spaces with good air flow when in public. Wash your hands often or use an alcohol-based hand waste picker. Cover your nose and mouth when coughing and sneezing. If you think you have COVID-19 or have been around someone who has it, stay home and be by yourselffor 5?10 days. Where to find more information Centers for Disease Control and Prevention (CDC): cdc.gov World Health Organization (WHO): who.int Get help right away if: You have trouble breathing or get short of breath. You have pain or pressure in your chest. You cannot speak or move any part of your body. You are confused. Your symptoms get worse. These symptoms may be an emergency. Get help right away. Call 911. Do not wait to see if the symptoms will go away. Do not drive yourself to the hospital. This information is not intended to replace advice given to you by your health care provider. Make sure you discuss any questions you have with your health care provider. Document Released: 2019-06-26 Document Updated: 2023-05-25 Document Reviewed: 2023-02-02 [employer] Patient Education ? 2023 [employer] * Patient Education Note - Chris Emanuel MD - 07/15/2024 4:40 PM EST Images from the original note were not included. Patient Education Table of Contents COVID-19 To view videos and all your education online visit, [email or web address] or scan this QR code with your smartphone. Access to this content will in one year. COVID-19 COVID-19 is an infection caused by a virus called SARS-CoV-2. This type of virus is called a coronavirus. People with COVID-19 may: Have little to no symptoms. Have mild to moderate symptoms that affect their lungs and breathing. Get very sick. What are the causes? COVID-19 is caused by a virus. This virus may be in the air as droplets or on surfaces. It can spread from an infected person when they cough, sneeze, speak, sing, or breathe. You may become infectedif: You breathe in the infected droplets in the air. You touch an object that has the virus on it. What increases the risk? You are at risk of getting COVID-19 if you have been around someone with the infection. You may be more likely to get very sick if: You are 65 years old or older. You have certain medical conditions, such as: ? Heart disease. ? Diabetes. ? Chronic respiratory disease. ? Cancer. ? . You are immunocompromised. This means your body cannot fight infections easily. You have a disability or trouble moving, meaning you're immobile. What are the signs or symptoms? People may have different symptoms from COVID-19. The symptoms can also be mild to severe. They often show up in 5?6 days after being infected. But they can take up to 14 days to appear. Common symptoms are: Cough. Feeling tired. New loss of taste or smell. Fever. Less common symptoms are: Sore throat. Headache. Body or muscle aches. Diarrhea. A skin rash or odd-colored fingers or toes. Red or irritated eyes. Sometimes, COVID-19 does not cause symptoms. How is this diagnosed? COVID-19 can be diagnosed with tests done in the lab or at home. Fluid from your nose, mouth, or lungs will be used to check for the virus. How is this treated? Treatment for COVID-19 depends on how sick you are. Mild symptoms can be treated at home with rest, fluids, and sssv-jsw-qyuztpp medicines. Severe symptoms may be treated in a hospital intensive care unit (ICU). If you have symptoms and are at risk of getting very sick, you may be given a medicine that fights viruses. This medicine is called an antiviral. How is this prevented? To protect yourself from COVID-19: 1. Know your risk factors. Get vaccinated. If your body cannot fight infections easily, talk to your provider about treatment to help prevent COVID-19. Stay at least 1 meter away from others. Wear a well-fitted mask when: You can't stay at a distance from people. You're in a place with poor air flow. Try to be in open spaces with good air flow when in public. Wash your hands often or use an alcohol-based hand waste picker. Cover your nose and mouth when coughing and sneezing. If you think you have COVID-19 or have been around someone who has it, stay home and be by yourselffor 5?10 days. Where to find more information Centers for Disease Control and Prevention (CDC): cdc.gov World Health Organization (WHO): who.int Get help right away if: You have trouble breathing or get short of breath. You have pain or pressure in your chest. You cannot speak or move any part of your body. You are confused. Your symptoms get worse. These symptoms may be an emergency. Get help right away. Call 911. Do not wait to see if the symptoms will go away. Do not drive yourself to the hospital. This information is not intended to replace advice given to you by your health care provider. Make sure you discuss any questions you have with your health care provider. Document Released: 2019-06-26 Document Updated: 2023-05-25 Document Reviewed: 2023-02-02 Elsevier Patient Education ? 2023 [employer] documented in this encounter Plan of Treatment Upcoming Encounters Date Type Department Care Team (Late st Contact Info) Description 09/17/2024 11:00 AM EDT Office Visit [facility] [address], [place] [phone] Teresita Munroe DO [address], [place] [phone] documented as of this encounter Procedures Procedure Name Priority Date/Time Associated Diagnosis Comments POCT INFLUENZA B (ID NOW RAPID MOLECULAR) Routine 07/15/2024 10:56 AM EST Influenza B COVID-19 POCT INFLUENZA A (ID NOW RAPID MOLECULAR) Routine 07/15/2024 10:56 AM EST Influenza B COVID-19 POCT RAPID COVID ANTIGEN Routine 07/15/2024 10:56 AM EST Influenza B COVID-19 documented in this encounter Results * (ABNORMAL) Influenza B (ID NOW Rapid Molecular) (07/15/2024 10:56 AM EST) Influenza B Positive( A) Negative, Indeterminate LAB[facility] Swab 07/15/2024 10:5 6 AM EST us Chris Emanuel MD POINT OF CARE TEST ENTER/EDIT OR DERABLES Final Result [facility] [address] [place] [phone] * Influenza A (ID NOW Rapid Molecular) (07/15/2024 10:56 AM EST) [facility] Influenza A Negative Negative, Indeterminate LABS Swab 07/15/2024 10:5 6 AM EST us Chris Emanuel MD POINT OF CARE TEST ENTER/EDIT OR DERABLES Final Result Performing Organization Address City/[facility]/ZIP Co de Phone Number LABS [address] [place] [address] [phone] * (ABNORMAL) POCT Rapid COVID Ag (07/15/2024 10:56 AM EST) Pathologist [facility] Rapid COVID Ag Positive [facility] Swab 07/15/2024 10:5 6 AM EST us Chris Emanuel MD POINT OF CARE TEST ENTER/EDIT OR DERABLES Final Result Performing Organization Address [facility] Co de Phone Number [facility] [address] [place] [address] [phone] documented in this encounter Visit Diagnoses Diagnosis 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 complication, without long-term current use of insulin ([facility])- Primary Influenza B Influenza with other respiratory manifestations COVID-19 Chronic obstructive pulmonary disease, unspecified COPD type ([facility]) Rheumatoid arthritis, involving unspecified site, unspecified whether rheumatoid factor present ([facility]) documented in this encounter Additional Health Concerns Assessment Noted Time PHQ-9 Depression Total Score: 5 01/22/20 24 9:55 AM EDT documented as of this encounter Care Teams Boarding House Cook Relationship Specialty Start Date End Date Teresita Munroe DO [address] [place] [phone] PCP - General Family Medicine 07/28/14 documented as of this encounter
--- OUTSIDE RECORDS SUMMARY | 2024-07-29 17:20 | XMS_ITS | Encounter Summary ---
Author Organization [employer] Address [address] [facility] [address] [place] [address] Care Team Providers Care [place] Man Name Role Phone Teresita Munroe DO Primary Care Provider Encounter Details Date Type Department Care Team (Late st Contact Info) Description 08/03/2022 Abstract [facility] [address] [place], [place] [phone] Bhanu Barakat DDS [address] [place] [address] Social History Tobacco Use Types Packs/Day Years [...] Description 09/17/2024 11:00 AM EDT Office Visit [facility] [address] [place] [address] Teresita Munroe DO [address] [place], [place] [phone] documented as of this encounter Visit Diagnoses Not on filedocumented in this encounter Care Teams [place] Man Relationship Specialty Start Date End Date Teresita Munroe DO [address] [place], [place] [phone] PCP - General Family Medicine 07/28/14 documented as of this encounter
--- OUTSIDE RECORDS SUMMARY | 2024-07-29 17:20 | XMS_ITS | Clinical Summary ---
Author Organization [employer] Address [address] [place] [address] 7[address] [place] [address] Care Team Providers Care Facility Maintenance Manager Name Role Phone LudwigTeresita Primary Care [...] tablet by oral route twice daily Active sodium chloride ([place] Nasal [place]) 0.65 % nasal sprayIndicatio ns:COVID-19 1-2 sprays on each nostril every 2-3 hours as needed for nasal congestion 30 mL 1 09/05/19 23 Active gabapentin (Neurontin) 300 MG capsule 09/30/19 23 Active ketorolac (Acular) 0.5 % ophthalmic solution 08/04/19 23 Active methotrexate 2.5 MG tablet 02/08/20 [...] until medical assistance becomes available. 2 each 3 10/11/19 24 2024 Active rosuvastatin (Crestor) 40 MG tablet @@ [...] unspecified site, unspecified whether rheumatoid factor present ([facility]) TAKE 1 TABLET BY MOUTH EVERY 8 HOURS NEEDED FOR MILD PAIN. DO NOT CURSH, CHEW. OR SPLIT. 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 56 tablet 06/13/19 25 Active albuterol (Ventolin HFA) 108 (90 Base) MCG/ACT inhaler Inhale 2 puffs every 4 (four) hours if needed for wheezing. 54 g 07/15/19 25 2025 Active Spacer/Aero-Ho lding Chambers (OptiChamber Khushi) misc 1 each every 4 (four) hours if needed (asthma). 1 each 07/15/19 25 Active ipratropium-al buterol (Duo-Neb) 0.5-2.5 mg/3 mL nebulizer solutionIndica tions:Chronic obstructive pulmonary disease, unspecified COPD type (CMS/HCC) Take 3 mL by nebulization if needed in the morning, at noon, in the evening, and at bedtime for wheezing or shortness of breath. 180 mL 07/15/19 25 Active acetaminophen (Tylenol) 500 MG tablet Take 2 tablets (1,000 mg) by mouth every 6 (six) hours if needed for moderate pain or fever for up to 25 doses. 30 tablet 07/15/19 25 Active Umeclidinium Pelican (Incruse Ellipta) 62.5 MCG/ACT aerosol powderIndicati ons:Chronic obstructive pulmonary disease, unspecified COPD type (CMS/HCC) Inhale 1 Act (62.5 mcg) Once per day. 30 Act 07/15/19 25 Active Alcohol Swabs (Alcohol Prep) padsIndication s: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 complication, without long-term current use of insulin ([facility]) 1 each 3 times daily. 100 each 07/15/19 25 Active Misc. Devices (Pulse Oximeter For Finger) misc 1 each 2 times daily. 1 each 07/15/19 25 Active Lancets 33G misc 1 each 3 times daily. 100 each 07/15/19 25 Active FREESTYLE LITE test strip Use as instructed 100 each 07/15/19 25 Active Umeclidinium Pelican (Incruse Ellipta) 62.5 MCG/ACT aerosol powderIndicati ons:Chronic obstructive pulmonary disease, unspecified COPD type (CMS/HCC) Inhale 1 puff in the morning. 30 each 06/09/192024 Discontinued(R eorder (will not trigger notification to Pharmacy)) Ventolin HFA 108 (90 Base) MCG/ACT inhalerIndicat ions:Chronic obstructive pulmonary disease, unspecified COPD type (CMS/HCC) INHALE 2 PUFFS EVERY 6 HOURS NEEDED FOR WHEEZING OR SHORTNESS OF BREATH. 18 g 3 12/29/192024 Discontinued(R eorder (will not trigger notification to Pharmacy)) ipratropium-al buterol (Duo-Neb) 0.5-2.5 mg/3 mL nebulizer solution INHALE 1 VIAL (3ML) VIA NEBULIZER 4 TIMES A DAY IN THE MORNING, AT NOON, IN THE EVENING, AND AT BEDTIME NEEDEDFOR COUGH OR SHORTNESS OF BREATH. 180 mL 3 11/22/19 24 2024 Discontinued(R eorder (will not trigger notification to Pharmacy)) traMADol (Ultram) 50 MG tabletIndicati ons:Chronic pain of both shoulders Take 1 tablet (50 mg) by mouth every 6 (six) hours if needed for severe pain for up to 7 days. 28 tablet 06/26/19 25 2024 Discontinued(R eorder (will not trigger notification to Pharmacy)) traMADol (Ultram) 50 MG tabletIndicati ons:Chronic pain of both shoulders Take 1 tablet (50 mg) by mouth every 8 (eight) hours if needed for severe pain for up to 7 days. 21 tablet 06/26/19 25 2024 traMADol (Ultram) 50 MG tabletIndicati ons:Chronic pain of both shoulders Take 1 tablet (50 mg) by mouth every 6 (six) hours if needed for severe pain for up to 7 days. 28 tablet 07/08/19 25 2024 predniSONE (Deltasone) 20 MG tablet Take 2 tablets (40 mg) by mouth Once per day for 5 days. 10 tablet 07/15/19 25 2024 Active Problems Problem Noted Date Diagnosed Date [...] Encounters Date Type Department Care Team Description 07/23/2024 Telephone [facility] [address] [place] [phone] Teresita Munroe DO Medication Question 07/22/2024 Telephone [facility] [address] [place] [phone] Teresita Munroe DO Recall Letter (Recall Letter sent 07/22/24.) 07/15/2024 10:20 AM EST Office Visit [facility] [address] [place] [address] Chris Emanuel MD 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 complication, without long-term current use of insulin ([facility]) (Primary Dx); Influenza B; COVID-19; Chronic obstructive pulmonary disease, unspecified COPD type ([facility]); Rheumatoid arthritis, involving unspecified site, unspecified whether rheumatoid factor present ([facility]) 07/08/2024 Refill [facility] [address] [place], [place] [phone] Teresita Munroe DO Chronic pain of both shoulders 07/07/2024 Orders Only GENERIC EXTERNAL DATA DEPARTMENT Provider, Generic External Data 06/26/2024 Refill [facility] [address] [place] [address] Teresita Munroe DO Chronic pain of both shoulders (Primary Dx) 06/25/2024 Refill [facility] [address], [place] [phone] Teresita Munroe DO Chronic pain of both shoulders (Primary Dx) 06/16/2024 Orders Only [facility] External Provider, [facility] 06/12/2024 Refill [facility] [address] [place] [address] Teresita Munroe DO Chronic obstructive pulmonary disease, unspecified COPD type ([facility]); 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 complication, 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 ([facility]); Osteopenia, unspecified location 06/12/2024 Refill [facility] [address] [place] [address] Charmaine Rowland MD 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 complication, 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 ([facility]); Osteopenia, unspecified location 05/19/2024 Refill [facility] [address] [place] [address] Teresita Munroe DO Rheumatoid arthritis, involving unspecified site, unspecified whether rheumatoid factor present ([facility]) 05/09/2024 Telephone [facility] [address] [place] [address] Teresita Munroe DO Appointment Request 05/09/[address] [phone] [place], [place] [employer] STRATEGIC ACCOUNT MANAGER Tier 2 from Last 3 Months Immunizations Name Administration [...] 6.4 oz) 07/15/2024 10:41 AM EST Height 157.5 cm (5' 2 ) 01/22/2024 9:51 AM EDT Body Mass Index 26.23 01/22/2024 9:51 AM EDT Plan of Treatment Upcoming Encounters Date Type Department Care Team (Late st Contact Info) Description 09/17/2024 11:00 AM EDT Office Visit [facility] [address] [place] [address] Teresita Munroe DO [address] [place] [address] Health Maintenance Due Date Last Done Comments CT Colonography 1950 Dental Prophylaxis 1950 Dental X-Ray: Bitewings 1950 FIT DNA/Cologuard 1950 FIT 1950 FOBT 1950 Sigmoidoscopy 1950 Diabetes: Foot Exam 1959 Eye Exam 1959 Alcohol/Substance Use Screening 1961 Hepatitis A Vaccines (1 of 2 - Risk 2-dose series) 1968 Zoster Vaccines (3 of 3) 10/17/2021 08/22/2021, 1107/2014 Dental Oral Exam 12/11/2022 06/12/2022 COVID-19 Vaccine ( season) 2024 05/09/2021, 09/09/2020, 08/12/2020, Additional history exists Influenza Vaccine (#1) 2024 3, 06/09/2022, 05/24/2021, Additional history exists RSV Patients and Patients Aged 60 years or older (1 - 1-dose 75+ series) 2024 Diabetes: Hemoglobin A1C 10/07/2024 024, 01/22/2024, 09/19/2023, Additional history exists SDOH Screening 01/07/2025 01/08/2024 Depression Screening 01/21/2025 01/22/2024, 01/22/20 24 Diabetes: Urine Protein Screening 04/09/2025 04/09/2024, 10/17/2022, 08/22/2021, Additional history exists Lipid Panel 04/09/2025 04/09/2024, 10/02, 02/21/2022, Additional history exists Dental X-Ray: Full Mouth 06/13/2025 06/12/2022 Tobacco Screening 07/15/2025 07/15/2024 Colonoscopy 11/10/2025 11/10/2020, 11/03/2014 Colorectal Cancer Screening [...] 07/15/2024 10:56 AM EST Influenza B COVID-19 PTH, INTACT WITHOUT CALCIUM Routine 07/07/2024 1:33 PM EST VITAMIN D,25-OH,TOTAL,IA Routine 07/07/2024 1:29 PM EST ALBUMIN Routine 07/07/2024 1:29 PM EST BASIC METABOLIC PANEL Routine 07/07/2024 1:29 PM EST US ABDOMINAL AORTIC ANEURYSM Routine 06/17/2024 11:23 AM EST HEPATITIS PANEL, GENERAL Routine 04/09/2024 9:31 AM EST HEMOGLOBIN A1C Routine 04/09/2024 9:31 AM EST [...] Bilateral elbow joint pain Borderline abnormal TFTs PANORAMIC RADIOGRAPHIC IMAGE Routine 06/12/2022 1:00 PM EST Encounter for dental examination PERIODIC ORAL EVALUATION - ESTABLISHED PATIENT Routine 06/12/2022 1:00 PM EST Encounter for dental examination [facility] COLONOSCOPY Routine 11/10/2020 10:20 AM EDT from Last 3 Months or Most Recently Relevant to Health Maintenance Results * (ABNORMAL) Influenza B (ID NOW Rapid Molecular) (07/15/2024 10:56 AM EST) Influenza B Positive( A) Negative, Indeterminate [facility] Swab 07/15/2024 10:5 6 AM EST us Chris Emanuel MD POINT OF CARE TEST ENTER/EDIT OR DERABLES Final Result Performing Organization Address [facility] Co de Phone Number [facility] [address] [place] [phone] * Influenza A (ID NOW Rapid Molecular) (07/15/2024 10:56 AM EST) Influenza A Negative Negative, Indeterminate [facility] Swab 07/15/2024 10:5 6 AM EST us Chris Emanuel MD POINT OF CARE TEST ENTER/EDIT OR DERABLES Final Result Performing Organization Address [facility]/ZIP Co de Phone Number [facility] [address] [place] [phone] * (ABNORMAL) POCT Rapid COVID Ag (07/15/2024 10:56 AM EST) Rapid COVID Ag Positive [facility] Swab 07/15/2024 10:5 6 AM EST Chris Emanuel MD POINT OF CARE TEST ENTER/EDIT OR DERABLES Final Result Performing Organization Address [facility] Co de Phone Number [facility] [address] [place] [phone] * (ABNORMAL) PTH, Intact Without Calcium (07/07/2024 1:33 PM EST) [facility] Parathyroid Hormone, Intact 80.3(H) 8.7 - 77.1 pg/mL [facility] 07/07/2024 1:33 PM EST 07/07/2024 1:33 PM EST Generic External Data Provider LAB BLOOD ORDERAB LES Final Result Performing Organization Address [facility] de Phone Number [facility] [address] [place] [phone] * (ABNORMAL) Vitamin D, 25-Hydroxy, Total, Immunoassay (07/07/2024 1:29 PM EST) Pathologist [facility] Vitamin D 25-OH Total 12.7(L) >30 ng/mL [facility] Comment:Health Based Referen ce Values*< 20 ng/mL Qlenvchil57-26 ng/mL Insufficient> 30 ng/mL Sufficient*Santos MARCELINO. N [...] ORDERAB LES Final Result Performing Organization Address [facility] Co de Phone Number [facility] [address] [place] [phone] * Albumin (07/07/2024 1:29 PM EST) Albumin Level 4.0 3.5 - 5.0 g/dL [facility] 07/07/2024 1:29 PM EST 07/07/2024 1:33 PM EST [facility] External Data Provider LAB BLOOD ORDERAB LES Final Result Performing Organization Address [facility] Co de Phone Number [facility] [address] [place] [phone] * (ABNORMAL) Basic Metabolic Panel (07/07/2024 1:29 PM EST) Sodium 141 135 - 145 mmol/L [facility] Potassium 4.0 3.3 - 5.1 mmol/L [facility] Chloride 108 96 - 108 mmol/L [facility] Carbon Dioxide 27 22 - 29 mmol/L [facility] Anion Gap 10(L) 12 - 20 [facility] Urea Nitrogen (BUN) 14 9 - 16 mg/dL [facility] Creatinine, Serum 0.72 0.5 - 1.4 mg/dL [facility] Estimated Glomerular Filt Rate >60 [facility] Comment:Chronic Kidney Disea se: Estimated GFR < 60 mL/min/1.52o3Wyfoih Kidney Disease: Estimated GFR < 15 mL/min/1.73m2 Glucose 98 60 - 115 mg/dL [facility] Calcium 9.5 8.4 - 10.2 mg/dL [facility] 07/07/2024 1:29 PM EST 07/07/2024 1:33 PM EST us Generic External Data Provider LAB BLOOD ORDERAB LES Final Result [facility] [address] [place] [phone] * US ABDOMINAL AORTIC ANEURYSM (06/17/2024 11:23 AM EST) Anatomical Region Laterality Modality Abdomen Ultrasound 06/17/2024 11:2 3 AM EST Narrative 06/17/2024 11:24 AM EST ? [facility] ?[address] ? [place] [address] ? Ultrasound Report ? Signed ? Patient: Gagan,Aspen ?MR#: [id number] ?? 4 ? : 1950 ?Acct:[id number] ? Age/Sex: 74 / F ?ADM Date: 06/16/24 ? Loc: HO.HMGCX ? Attending Dr: Daron Jones MD ? Ordering Physician: Daron Jones MD ?? Date of Service: 06/16/24 ?? Procedure(s): US abdominal aortic aneurysm ?? Accession Number(s): [id number] ? cc: Teresita Munroe DO; Daron Jones [...] signed by Roger Brar MD in OV> ?06/17/241123 ? DD/ ? TD/TT: 06/17/24 1123 ? Director Specialty: ? Procedure Note Donotmaryinterpreter, Image - 06/17/2024 [facility] [address] [place] [address] [place] [address] Ultrasound Report Signed Patient: Shirin Farah#: [id number] 4 : 9Acct:[id number] Age/Sex: 74 / FADM Date: 06/16/24 Loc: .HMGCX Attending Dr: Daron Jones MD Ordering Physician: Daron Jones MD Date of Service: 06/16/24 Procedure(s): US abdominal aortic aneurysm Accession Number(s): [id number] cc: Teresita Munroe DO; Daron Jones MD [...] signed by Roger Brar MD in OV> 01/14/25 1124 DD/ 22 TD/TT: 06/17/24 1123 Director Specialty: us [facility] External Provider IMG US PROCEDURES Final Result * Hepatitis Panel, General (04/09/2024 9:31 AM EST) Hepatitis A IgM Nonreactive Nonreactive [facility] Comment:IgM antibodies to GUERRA V not detected; does not exclude earlyacute or recovered HAV infection. ~Hepatitis B Surface Antibody REACTIVE Nonreactive [facility] Comment:REACTIVE: > 11.99 mI U/mL Hepatitis B Core Antibody Nonreactive Nonreactive [facility] Hepatitis C Antibody Nonreactive Nonreactive [facility] Comment:Antibodies to HCV no t detected; does not exclude early acuteHCV infection. Hepatitis B Surface Ag Negative Negative [facility] 04/09/2024 9:31 AM EST 04/09/2024 9:31 AM EST Generic External Data Provider LAB BLOOD ORDERAB LES Final Result [facility] [address] [place] [phone] * Hemoglobin A1c (04/09/2024 9:31 AM EST) Hemoglobin A1c 5.9 <6.0 % [facility] Comment:Hemoglobin A1C Refer ence Range Adults: 4.8 - 6.0 % Non diabetic: < 6.0 % Goal: < 7.0 %Additional Action Suggested: > 8.0 %Note: Hemoglobin A1c results are invalid for patients with abnormal amounts of HbF. Blood transfusions may impact the HbA1c concentration in the patient sample. Estimated Average Glucose 123 mg/dL [facility] Comment:eAG = Estimated ave rage glucose which is %A1C expressed asaverage glucose, using the formula of the X0W-CyprdmmKkbxsry Glucose study (ADAG), Diabetes Care, Vol.31,#8,Jan. 2007 Blood Venous blood specimen / Unknown 04/09/2024 9:31 AM EST 04/09/2024 9:31 AM EST Teresita Ludwig DO LAB BLOOD ORDERABLES Final R esult Performing Organization Address [facility] Co de Phone Number [facility] [address] [place] [phone] * Lipid Panel, Standard (04/09/2024 9:31 AM EST) Triglycerides 88 <150 mg/dL [facility] Comment:Desirable Triglyceri de: less than 150 mg/dLBorderline High Triglyceride 150-199 mg/dLHigh Triglyceride: 200-499 mg/dLVery High Triglyceride: greater than or equal to 5OO mg/dL Cholesterol 97 <200 mg/dL [facility] Comment:Desirable Cholestero l: less than 200 mg/dLBorderline High Cholesterol: 200-239 mg/dLHigh Cholesterol: greater than 239 mg/dL LDL Cholesterol Calculated 32 <100 mg/dL [facility] Comment:Desirable LDL: less than 100 mg/dLNear Optimal/Above Optimal LDL: 110- 129 mg/dLBorderline High LDL: 130-159 mg/dLHigh LDL: 160-189 mg/dLVery High LDL: greater than or equal to 190 mg/dL HDL Cholesterol 48 >40 mg/dL [facility] Comment:Desirable HDL: great er than 40 mg/dL Note: This HDL assay may give artificially low results in patients with liver disease. Blood Venous blood specimen / Unknown 04/09/2024 9:31 AM EST 04/09/2024 9:31 AM EST Teresita Munroe DO LAB BLOOD ORDERABLES Final R esult Performing Organization Address [facility]/ZIP Co de Phone Number [facility] [address] [place] [phone] * Albumin, Random Urine W/Creatinine (04/09/2024 9:28 AM EST) Creatinine, Urine 128.14 mg/dL [facility] Microalbumin Urine 12.0 mg/L [facility] Microalbum Creatinine Ratio Ur 9.3 <30 ug/mg cr [facility] Comment:Albumin/Creatinine R atio Reference Ranges: Normal: < 30 ug/mg creatinine Microalbuminuria: 30 - 300 ug/mg creatinineClinical Albuminuria: > 300 ug/mg creatinine Urine (Urine, Random) 04/09/2024 9:28 AM EST 04/09/2024 9:40 AM EST us Teresita Munroe DO LAB URINE ORDERABLES Final R esult [facility] [address] [place] [phone] * Hm Colonoscopy (11/10/2020 10:20 AM EDT) us Historical Provider HEALTH MAINTENANCE Final Result from Last 3 Months or Most Recently Relevant to Health Maintenance Insurance [facility] Care Teams Facility Maintenance Manager Relationship Specialty Start Date End Date Teresita Munroe DO [address] [place] [address] PCP - General Family Medicine 07/28/14
== END 2024-07-29 14:26 | disposition home or self-care (01) ==
PROVIDERS: PCP Family Medicine; Visit Provider Surgery Vascular Surgery
DX: I71.43 Infrarenal abdominal aortic aneurysm, without rupture (principal)
CPT/HCPCS: 99214; G2211

== ENCOUNTER → 2024-07-29 13:53 | Outpatient (BNVA) | payer OTHER, SELFPAY | PROVIDERS: PCP Family Medicine; Visit Provider Surgery Vascular Surgery | DX: I71.43 Infrarenal abdominal aortic aneurysm, without rupture (principal) | CPT/HCPCS: 99212 ==

== ENCOUNTER 2024-08-01 08:08 | Outpatient (REF) | payer OTHER, SELFPAY ==
--- NOTE | ~2024-08-01 | MM_ITS ---
EXAMINATION: MM SCREENING DIGITAL BREAST TOMOSYNTHESIS, BILATERAL CLINICAL INFORMATION: Screening. Asymptomatic. COMPARISON: Mammography: Comparison is made with available priors TECHNIQUE: Digital breast mammography with tomosynthesis is performed in both the craniocaudal and mediolateral oblique views along with computer-aided detection (CAD). FINDINGS: The breasts are heterogeneously dense, which may obscure small masses (ACR BI-RADS breast composition Category c). There are no significant masses, abnormal calcifications, or other abnormalities. MM/MM tomosynthesis screening BI IMPRESSION: No mammographic evidence of malignancy. ASSESSMENT: BI-RADS BI-RADS 1 - Negative RECOMMENDATION: Routine annual mammography screening. 1 year F/U This examination should not preclude the clinical evaluation of a suspicious palpable abnormality. This patient's information was entered into a reminder system with a target due date for their next mammogram. Electronically signed by: Brittany Cadet DO 08/04/2024 03:28 PM MICHAEL
--- OUTSIDE RECORDS SUMMARY | 2024-08-01 08:18 | XMS_ITS | Encounter Summary ---
Author Organization [employer] Address [address] [facility] [address]t [place] [address] Care Team Providers Care Media Director Name Role Phone Teresita Munroe DO Primary Care Provider Encounter Details Date Type Department Care Team (Late st Contact Info) Description 08/03/[address] [facility] [address] [place] [address] Bhanu Barakat DDS [address] [place] [address] Social History Tobacco Use Types Packs/Day Years [...] Description 09/17/2024 11:00 AM EDT Office Visit [facility] [address] [place] [address] Teresita Munroe DO [address] [place], [place] [phone] documented as of this encounter Visit Diagnoses Not on filedocumented in this encounter Care Teams Media Director Relationship Specialty Start Date End Date Teresita Munroe DO [address] [place], [place] [phone] PCP - General Family Medicine 07/28/14 documented as of this encounter
--- OUTSIDE RECORDS SUMMARY | 2024-08-01 08:18 | XMS_ITS | Encounter Summary ---
Author Organization [employer] Address [address] [facility] 7t [place] [address] Care Team Providers Care Crew Car Driver Name Role Phone Teresita Munroe DO Primary Care Provider [phone] Reason for Visit * Reason Onset Date Comments Med Refill 07/08/2024 Encounter Details Date Type Department Care Team (Late st Contact Info) Description 07/08/2024 Refill [facility] [address] [place] [address] Teresita Munroe DO [address] [place] [address] Chronic pain of both shoulders Social History [...] Description 09/17/2024 11:00 AM EDT Office Visit [facility] [address] [place] [address] Teresita Munroe DO [address] [place] [address] documented as of this encounter Visit Diagnoses Diagnosis Chronic pain of both shoulders documented in this encounter Additional Health Concerns Assessment Noted Time PHQ-9 Depression Total Score: 5 01/22/20 24 9:55 AM EDT documented as of this encounter Care Teams Crew Car Driver Relationship Specialty Start Date End Date Teresita Munroe DO [address] [place] [phone] PCP - General Family Medicine 07/28/14 documented as of this encounter
--- OUTSIDE RECORDS SUMMARY | 2024-08-01 08:18 | XMS_ITS | Encounter Summary ---
Author Organization [employer] Address [address] [facility] 7t [place] [address] Care Team Providers Care Acetone Button Paster Name Role Phone Teresita Munroe DO Primary Care Provider [phone] Encounter Details Date Type Department Care Team (Latest Contact Info) Description 12/22/[address] [facility] CONVERSIONS Dental, Provider, DDS Social History [...] Description 09/17/2024 11:00 AM EDT Office Visit [facility] [address] [place] [address] Teresita Munroe DO [address] [place] [address] documented as of this encounter Visit Diagnoses Not on filedocumented in this encounter Care Teams Acetone Button Paster Relationship Specialty Start Date End Date Teresita Munroe DO [address] [place] [address] PCP - General Family Medicine 07/28/14 documented as of this encounter
--- OUTSIDE RECORDS SUMMARY | 2024-08-01 08:18 | XMS_ITS | Encounter Summary ---
Author Organization [employer] [facility] Address [address] [facility] [address] [place] [address] Care Team Providers Care Hand Router Operator Name Role Phone Teresita Munroe DO Primary Care Provider [phone] Encounter Details Date Type Department Care Team (Latest Contact Info) Description 2019 Abstract [facility] CONVERSIONS Dental, Provider, DDS Social History [...] Description 09/17/2024 11:00 AM EDT Office Visit [facility] [address] [place] [address] Teresita Munroe DO [address] [place] [address] documented as of this encounter Visit Diagnoses Not on filedocumented in this encounter Care Teams Hand Router Operator Relationship Specialty Start Date End Date Teresita Munroe DO [address] [place] [address] PCP - General Family Medicine 07/28/14 documented as of this encounter
--- OUTSIDE RECORDS SUMMARY | 2024-08-01 08:18 | XMS_ITS | Encounter Summary ---
Author Organization [employer] Address [address] [facility] 7t [place] [address] Care Team Providers Care Package Sorter Name Role Phone Teresita Munroe DO Primary Care Provider Reason for Visit * Reason Onset Date Comments Recall Letter 07/22/2024 Recall Letter se nt 07/22/24. Encounter Details Date Type Department Care Team ([facility] st Contact Info) Description 07/22/2024 Telephone [facility] [address] [place] [address] Teresita Munroe DO [address] [place] [address] Recall Letter (Recall Letter sent 07/22/24.) Social [...] 09/17/2024 11:00 AM EDT Office Visit [facility] [address] [place] [address] Teresita Munroe DO [address] [place] [address] documented as of this encounter Visit Diagnoses Not on filedocumented in this encounter Additional Health Concerns Assessment Noted Time PHQ-9 Depression Total Score: 5 01/22/20 24 9:55 AM EDT documented as of this encounter Care Teams Package Sorter Relationship Specialty Start Date End Date Teresita Munroe DO [address] [place] [address] PCP - General Family Medicine 07/28/14 documented as of this encounter
--- OUTSIDE RECORDS SUMMARY | 2024-08-01 08:18 | XMS_ITS | Encounter Summary ---
Author Organization [employer] Address [address] [facility] 7t [place] [address] Care Team Providers Care Community Engagement Specialist Name Role Phone Teresita Munroe DO Primary Care Provider [phone]- [phone] Reason for Visit * Reason Onset Date Comments Med Refill 05/11/2023 Encounter Details Date Type Department Care Team (Late st Contact Info) Description 05/11/2023 Refill [facility] [address] [place] [address] Teresita Munroe DO [address] [place] [address] Chronic pain of both shoulders (Primary Dx) [...] traMADol (Ultram) 50 MG tablet [facility] [address] [place] [address] documented in this encounter Plan of Treatment Upcoming Encounters Date Type Department Care Team (Late st Contact Info) Description 09/17/2024 11:00 AM EDT Office Visit [facility] [address] [place] [address] Teresita Munroe DO [address] [place] [address] documented as of this encounter Visit Diagnoses Diagnosis Chronic pain of both shoulders- Primary documented in this encounter Care Teams Community Engagement Specialist Relationship Specialty Start Date End Date Teresita Munroe DO [address] [place] [phone] PCP - General Family Medicine 07/28/14 documented as of this encounter
--- OUTSIDE RECORDS SUMMARY | 2024-08-01 08:18 | XMS_ITS | Clinical Summary ---
Author Organization [employer] Address [address] [place] [address] 7t [place] [address] Care Team Providers Care Medical Esthetician Name Role Phone LudwigTeresita Primary Care Provider [...] oral route twice daily Active sodium chloride (Wetzel Nasal [place]) 0.65 % nasal sprayIndicatio ns:COVID-19 1-2 sprays [...] unspecified site, unspecified whether rheumatoid factor present ([facility]) TAKE 1 TABLET BY MOUTH EVERY 8 HOURS NEEDED FOR MILD PAIN. DO NOT CURSH, CHEW. OR SPLIT. 60 tablet 05/20/20 24 Active Fluticasone-Sa lmeterol 500-50 MCG/ACT aerosol powderIndicati ons:Chronic obstructive pulmonary disease, unspecified COPD type ([facility]/HCC) INHALE 1 PUFF BY MOUTH 2 TIMES DAILY 60 each 06/13/19 25 Active metFORMIN XR (Glucophage-XR ) 500 MG 24 hr tabletIndicati ons: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 complication, unspecified whether intermediate project manager insulin use (CMS/HCC) TAKE 1 TABLET BY [...] doses. 30 tablet 07/15/19 25 Active Umeclidinium [place] (Incruse Ellipta) 62.5 MCG/ACT aerosol powderIndicati ons:Chronic obstructive pulmonary disease, unspecified COPD type (CMS/HCC) Inhale 1 Act (62.5 mcg) Once per day. 30 Act 07/15/19 25 Active Alcohol Swabs (Alcohol Prep) padsIndication s: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 complication, without long-term current use of insulin ([facility]) 1 each 3 times daily. 100 each 07/15/19 25 Active Misc. Devices (Pulse Oximeter For Finger) misc 1 each 2 times daily. 1 each 07/15/19 25 Active Lancets 33G misc 1 each 3 times daily. 100 each 07/15/19 25 Active FREESTYLE LITE test strip Use as instructed 100 each 07/15/19 25 Active Umeclidinium [place] (Incruse Ellipta) 62.5 MCG/ACT aerosol powderIndicati ons:Chronic [...] Type Department Care Team Description 07/23/2024 Telephone [facility] [address] [place] [phone] Teresita Munroe DO Medication Question 07/22/2024 Telephone [facility] [address] [place] [phone] Teresita Munroe DO Recall Letter (Recall Letter sent 07/22/24.) 07/15/2024 10:20 AM EST Office Visit [facility] [address] [place] [address] Chris Emanuel MD 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 complication, without long-term current use of insulin ([facility]) (Primary Dx); Influenza B; COVID-19; Chronic obstructive pulmonary disease, unspecified COPD type ([facility]); Rheumatoid arthritis, involving unspecified site, unspecified whether rheumatoid factor present ([facility]) 07/08/2024 Refill [facility] [address] [place], [place] [phone] Teresita Munroe DO Chronic pain of both shoulders 07/07/2024 Orders Only GENERIC EXTERNAL DATA DEPARTMENT Provider, Generic External Data 06/26/2024 Refill [facility] [address] [place] [phone] Teresita Munroe DO Chronic pain of both shoulders (Primary Dx) 06/25/2024 Refill [facility] [address] [place], [place] [phone] Teresita Munroe DO Chronic pain of both shoulders (Primary Dx) 06/16/2024 Orders Only [facility] External Provider, [facility] 06/12/2024 Refill [facility] [address] [place] [address] Teresita Munroe DO Chronic obstructive pulmonary disease, unspecified COPD type ([facility]); 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 complication, unspecified whether intermediate project manager insulin use ([facility]); Osteopenia, unspecified location 06/12/2024 Refill [facility] [address] [place] [address] Charmaine Rowland MD 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 complication, unspecified whether intermediate project manager insulin use ([facility]); Osteopenia, unspecified location 05/19/2024 Refill [facility] [address] [place] [address] Teresita Munroe DO Rheumatoid arthritis, involving unspecified site, unspecified whether rheumatoid factor present ([facility]) 05/09/2024 Telephone [facility] [address] [place] [address] Teresita Munroe DO Appointment Request 05/09/[address] [phone] [place], [place] [employer] Tele SPIRITUAL CARE COORDINATOR Tier 2 from Last 3 Months Immunizations [...] Description 09/17/2024 11:00 AM EDT Office Visit [facility] [address] [place] [address] Teresita Munroe DO [address] [place] [address] Health Maintenance Due Date Last Done Comments [...] EST) Influenza B Positive( A) Negative, Indeterminate [facility] Swab 07/15/2024 10:5 6 AM EST us Chris Emanuel MD POINT OF CARE TEST ENTER/EDIT OR DERABLES Final Result Performing Organization Address [facility] Co de Phone Number [facility] [address] [place] [phone] * Influenza A (ID NOW Rapid Molecular) (07/15/2024 10:56 AM EST) Influenza A Negative Negative, Indeterminate [facility] Swab 07/15/2024 10:5 6 AM EST us Chris Emanuel MD POINT OF CARE TEST ENTER/EDIT OR DERABLES Final Result Performing Organization Address [facility]/ZIP Co de Phone Number [facility] [address] [place] [address] [phone] * (ABNORMAL) POCT Rapid COVID Ag (07/15/2024 10:56 AM EST) Rapid COVID Ag Positive [facility] Swab 07/15/2024 10:5 6 AM EST Chris Emanuel MD POINT OF CARE TEST ENTER/EDIT OR DERABLES Final Result Performing Organization Address [facility] Co de Phone Number [facility] [address] [place] [phone] * (ABNORMAL) PTH, Intact Without Calcium (07/07/2024 1:33 PM EST) [facility] Parathyroid Hormone, Intact 80.3(H) 8.7 - 77.1 pg/mL [facility] 07/07/2024 1:33 PM EST 07/07/2024 1:33 PM EST Generic External Data Provider LAB BLOOD ORDERAB LES Final Result Performing Organization Address [facility] de Phone Number [facility] [address] [place] [phone] * (ABNORMAL) Vitamin D, 25-Hydroxy, Total, Immunoassay (07/07/2024 1:29 PM EST) Pathologist [facility] Vitamin D 25-OH Total 12.7(L) >30 ng/mL [facility] Comment:Health Based Referen ce Values*< 20 ng/mL Lmolkloxa96-65 ng/mL Insufficient> 30 ng/mL Sufficient*Santos MARCELINO. N [...] ORDERAB LES Final Result Performing Organization Address [facility] Co de Phone Number [facility] [address] [place] [phone] * Albumin (07/07/2024 1:29 PM EST) Albumin Level 4.0 3.5 - 5.0 g/dL [facility] 07/07/2024 1:29 PM EST 07/07/2024 1:33 PM EST [employer] External Data Provider LAB BLOOD ORDERAB LES Final Result Performing Organization Address [facility] Co de Phone Number [facility] [address] [place] [phone] * (ABNORMAL) Basic Metabolic Panel (07/07/2024 1:29 PM EST) Sodium 141 135 - 145 mmol/L [facility] Potassium 4.0 3.3 - 5.1 mmol/L [facility] Chloride 108 96 - 108 mmol/L [facility] Carbon Dioxide 27 22 - 29 mmol/L [facility] Anion Gap 10(L) 12 - 20 [facility] Urea Nitrogen (BUN) 14 9 - 16 mg/dL [facility] Creatinine, Serum 0.72 0.5 - 1.4 mg/dL [facility] Estimated Glomerular Filt Rate >60 [facility] Comment:Chronic Kidney Disea se: Estimated GFR < 60 mL/min/[id number] Kidney Disease: Estimated GFR < 15 mL/min/1.73m2 Glucose 98 60 - 115 mg/dL [facility] Calcium 9.5 8.4 - 10.2 mg/dL [facility] 07/07/2024 1:29 PM EST 07/07/2024 1:33 PM EST us Generic External Data Provider LAB BLOOD ORDERAB LES Final Result [facility] [address] [place] [phone] * US ABDOMINAL AORTIC ANEURYSM (06/17/2024 11:23 AM EST) Anatomical Region Laterality Modality Abdomen Ultrasound 06/17/2024 11:2 3 AM EST Narrative 06/17/2024 11:24 AM EST ? [facility] ?[address] ? [place] [address] ? Ultrasound Report ? Signed ? Patient: Gagan,Aspen ?MR#: [id number] ?? 4 ? : 1950 ?Acct:[id number] ? Age/Sex: 74 / F ?ADM Date: 06/16/24 ? Loc: HO.HMGCX ? Attending Dr: Daron Jones MD ? Ordering Physician: Daron Jones MD ?? Date of Service: 06/16/24 ?? Procedure(s): US abdominal aortic aneurysm ?? Accession Number(s): [id number] ? cc: Teresita Munroe DO; Daron Jones [...] ? DD/ ? TD/TT: 06/17/24 1123 ? Offbearer Sewer Pipe: ? Procedure Note Donotmaryinterpreter, Image - 06/17/2024 [facility] [address] [place] [address] [place] [address] Ultrasound Report Signed Patient: Shirin Farah#: [id number] 4 : 9Acct:[id number] Age/Sex: 74 / FADM Date: 06/16/24 Loc: .HMGCX Attending Dr: Daron Jones MD Ordering Physician: Daron Jones MD Date of Service: 06/16/24 Procedure(s): US abdominal aortic aneurysm Accession Number(s): [id number] cc: Teresita Munroe DO; Daron Jones MD [...] 01/14/25 1124 DD/ 22 TD/TT: 06/17/24 1123 Offbearer Sewer Pipe: us [facility] External Provider IMG US PROCEDURES Final Result * Hepatitis Panel, General (04/09/2024 9:31 AM EST) Hepatitis A IgM Nonreactive Nonreactive [facility] Comment:IgM antibodies to GUERRA V not detected; does not exclude earlyacute or recovered HAV infection. ~Hepatitis B Surface Antibody REACTIVE Nonreactive [facility] Comment:REACTIVE: > 11.99 mI U/mL Hepatitis B Core Antibody Nonreactive Nonreactive [facility] Hepatitis C Antibody Nonreactive Nonreactive [facility] Comment:Antibodies to HCV no t detected; does not exclude early acuteHCV infection. Hepatitis B Surface Ag Negative Negative [facility] 04/09/2024 9:31 AM EST 04/09/2024 9:31 AM EST Generic External Data Provider LAB BLOOD ORDERAB LES Final Result [facility] [address] [place] [phone] * Hemoglobin A1c (04/09/2024 9:31 AM EST) Hemoglobin A1c 5.9 <6.0 % [facility] Comment:Hemoglobin A1C Refer ence Range Adults: 4.8 - 6.0 % Non diabetic: < 6.0 % Goal: < 7.0 %Additional Action Suggested: > 8.0 %Note: Hemoglobin A1c results are invalid for patients with abnormal amounts of HbF. Blood transfusions may impact the HbA1c concentration in the patient sample. Estimated Average Glucose 123 mg/dL [facility] Comment:eAG = Estimated ave rage glucose which is %A1C expressed asaverage glucose, using the formula of the V1B-ZuafreuOsfnmqk Glucose study (ADAG), Diabetes Care, Vol.31,#8,Jan. 2007 Blood Venous blood specimen / Unknown 04/09/2024 9:31 AM EST 04/09/2024 9:31 AM EST Teresita Ludwig DO LAB BLOOD ORDERABLES Final R esult Performing Organization Address [facility] Co de Phone Number [facility] [address] [place] [phone] * Lipid Panel, Standard (04/09/2024 9:31 AM EST) Triglycerides 88 <150 mg/dL [facility] Comment:Desirable Triglyceri de: less than 150 mg/dLBorderline High Triglyceride 150-199 mg/dLHigh Triglyceride: 200-499 mg/dLVery High Triglyceride: greater than or equal to 5OO mg/dL Cholesterol 97 <200 mg/dL [facility] Comment:Desirable Cholestero l: less than 200 mg/dLBorderline High Cholesterol: 200-239 mg/dLHigh Cholesterol: greater than 239 mg/dL LDL Cholesterol Calculated 32 <100 mg/dL [facility] Comment:Desirable LDL: less than 100 mg/dLNear Optimal/Above Optimal LDL: 110- 129 mg/dLBorderline High LDL: 130-159 mg/dLHigh LDL: 160-189 mg/dLVery High LDL: greater than or equal to 190 mg/dL HDL Cholesterol 48 >40 mg/dL [facility] Comment:Desirable HDL: great er than 40 mg/dL Note: This HDL assay may give artificially low results in patients with liver disease. Blood Venous blood specimen / Unknown 04/09/2024 9:31 AM EST 04/09/2024 9:31 AM EST Teresita Munroe DO LAB BLOOD ORDERABLES Final R esult Performing Organization Address [facility]/ZIP Co de Phone Number [facility] [address] [place] [address] [phone] * Albumin, Random Urine W/Creatinine (04/09/2024 9:28 AM EST) Creatinine, Urine 128.14 mg/dL [facility] Microalbumin Urine 12.0 mg/L [facility] Microalbum Creatinine Ratio Ur 9.3 <30 ug/mg cr [facility] Comment:Albumin/Creatinine R atio Reference Ranges: Normal: < 30 ug/mg creatinine Microalbuminuria: 30 - 300 ug/mg creatinineClinical Albuminuria: > 300 ug/mg creatinine Urine (Urine, Random) 04/09/2024 9:28 AM EST 04/09/2024 9:40 AM EST us Teresita Munroe DO LAB URINE ORDERABLES Final R esult [facility] [address] [place] [phone] * Hm Colonoscopy (11/10/2020 10:20 AM EDT) us Historical Provider HEALTH MAINTENANCE Final Result from Last 3 Months or Most Recently Relevant to Health Maintenance Insurance [facility] Care Teams Medical Esthetician Relationship Specialty Start Date End Date Teresita Munroe DO [address] [place] [address] PCP - General Family Medicine 07/28/14
--- OUTSIDE RECORDS SUMMARY | 2024-08-01 08:18 | XMS_ITS | Encounter Summary ---
Author Organization [employer] [employer] [facility] [employer] Address [address] [facility] [address]t [place] [address] Care Team Providers Care Loading Machine Adjuster Name Role Phone Teresita Munroe DO Primary Care Provider [phone] Reason for Visit * Reason Comments Med Refill Encounter Details Date Type Department Care Team ([facility] st Contact Info) Description 07/02/2023 Refill [facility] [address] [place] [address] Teresita Munroe DO [address] [place] [address] Chronic obstructive pulmonary disease, unspecified COPD type [...] Description 09/17/2024 11:00 AM EDT Office Visit [facility] [address] [place] [address] Teresita Munroe DO [address] [place] [address] documented as of this encounter Visit Diagnoses Diagnosis Chronic obstructive pulmonary disease, unspecified COPD type (CMS/HCC) documented in this encounter Care Teams Loading Machine Adjuster Relationship Specialty Start Date End Date Teresita Munroe DO [address] [place] [address] PCP - General Family Medicine 07/28/14 documented as of this encounter
--- OUTSIDE RECORDS SUMMARY | 2024-08-01 08:18 | XMS_ITS | Encounter Summary ---
Author Organization [employer] Address 75 [facility] 7t h Floor [place] [id number] Care Team Providers Care Underwater Welder Name Role Phone LudwigTeresita Primary Care Provider +1- [phone] Reason for Visit * Reason Comments Cough Nasal Congestion Encounter Details Date Type Department Care Team ([facility] st Contact Info) Description 07/15/2024 10:20 AM EST Office Visit [facility] [address] [place], [place] [phone] Chris Emanuel MD [address] [place] [address] 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 complication, without long-term current use of insulin ([facility]) (Primary Dx); Influenza B; COVID-19; Chronic obstructive pulmonary disease, unspecified COPD type ([facility]/HCC); Rheumatoid arthritis, involving unspecified site, unspecified whether rheumatoid factor present ([facility]) Social History Tobacco Use Types Packs/Day Years [...] the past 12 months, has t he [employer], gas, oil or water company threatened to [...] Aspen Farah is a 74 y.o. female. 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 Also has back pain, runny nose, wheezing, SOB. No fever, chills, n/v/d. Taking p.o. well. Using albuterol nb 4x/day. Ran out of albuterol HFA before she became ill. Does not use Incruse Ellipta anymore. Takes Singulair. Lives alone. Never smoked. 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 Patient Active Problem List Diagnosis Abdominal aortic [...] Chronic obstructive pulmonary disease, unspecified COPD type ([facility]) Refilled albuterol HFA, Duoneb solution, Incruse Ellipta. Prescribed spacer for HFA, prednisone Rtc if not improving. - ipratropium-albuterol (Duo-Neb) 0.5-2.5 mg/3 mL nebulizer solution; Take 3 mL by nebulization if needed in the morning, at noon, in the evening, and at bedtime for wheezing or shortness of breath. - Umeclidinium Austin (Incruse Ellipta) 62.5 MCG/ACT aerosol powder ; Inhale 1 Act (62.5 mcg) Onceper day. 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 complication, without long-term current use of insulin ([facility]) Refilled alcohol pads, lancets, test strips. - [...] videos and all your education online visit, [email or web address] or scan this QR code with your [...] care provider may tell you to: Take lqlm-vhe-tmgqzzi medicines. Drink lots of fluids. The flu [...] can't use soap and water, use hand hospital social worker. How is this prevented? Get a flu [...] 2001-05-18 Document Updated: 2024-02-21 Document Reviewed: 2023-06-28 [email or web address] Patient Education ? 2023 Jascha. * Patient Education Note - Chris Emanuel MD - 07/15/2024 4:46 PM EST Images from the original note were not included. Patient Education Table of Contents COVID-19 To view videos and all your education online visit, [email or web address] or scan this QR code with your [...] treated at home with rest, fluids, and qfey-mcy-jerflzs medicines. Severe symptoms may be treated in [...] hands often or use an alcohol-based hand hospital social worker. Cover your nose and mouth when coughing [...] 2019-06-26 Document Updated: 2023-05-25 Document Reviewed: 2023-02-02 [email or web address] Patient Education ? 2023 [email or web address] * Patient Education Note - Chris Emanuel MD - 07/15/2024 4:40 PM EST Images from the original note were not included. Patient Education Table of Contents COVID-19 To view videos and all your education online visit, [email or web address] or scan this QR code with your [...] treated at home with rest, fluids, and gfru-kdp-oxifxrj medicines. Severe symptoms may be treated in [...] hands often or use an alcohol-based hand hospital social worker. Cover your nose and mouth when coughing [...] Reviewed: 2023-02-02 Elsevier Patient Education ? 2023 [email or web address] documented in this encounter Plan of Treatment Upcoming Encounters Date Type Department Care Team (Late st Contact Info) Description 09/17/2024 11:00 AM EDT Office Visit [facility] [address] [place], [place] [phone] Teresita Munroe DO [address] [place], [place] [phone] documented as of this encounter Procedures Procedure [...] EST) Influenza B Positive( A) Negative, Indeterminate [facility] Swab 07/15/2024 10:5 6 AM EST us Chris Emanuel MD POINT OF CARE TEST ENTER/EDIT OR DERABLES Final Result [facility] [address] [place] [phone] * Influenza A (ID NOW Rapid Molecular) (07/15/2024 10:56 AM EST) [facility] Influenza A Negative Negative, Indeterminate [facility] Swab 07/15/2024 10:5 6 AM EST us Chris Emanuel MD POINT OF CARE TEST ENTER/EDIT OR DERABLES Final Result Performing Organization Address City/[facility]/ZIP Co de Phone Number [facility] [address] [place] [address] [phone] * (ABNORMAL) POCT Rapid COVID Ag (07/15/2024 10:56 AM EST) Pathologist [facility] Rapid COVID Ag Positive [facility] Swab 07/15/2024 10:5 6 AM EST us Chris Emanuel MD POINT OF CARE TEST ENTER/EDIT OR DERABLES Final Result Performing Organization Address [facility] Co de Phone Number [facility] [address] [place] [address] [phone] documented in this encounter Visit Diagnoses Diagnosis 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 complication, without long-term current use of insulin ([facility])- Primary Influenza B Influenza with other respiratory manifestations COVID-19 Chronic obstructive pulmonary disease, unspecified COPD type ([facility]) Rheumatoid arthritis, involving unspecified site, unspecified whether rheumatoid factor present ([facility]) documented in this encounter Additional Health Concerns Assessment Noted Time PHQ-9 Depression Total Score: 5 01/22/20 24 9:55 AM EDT documented as of this encounter Care Teams Underwater Welder Relationship Specialty Start Date End Date Teresita Munroe DO [address] [place] [phone] PCP - General Family Medicine 07/28/14 documented as of this encounter
--- OUTSIDE RECORDS SUMMARY | 2024-08-01 08:18 | XMS_ITS | Encounter Summary ---
Author Organization [employer] Address 75 [facility] 7t h Floor [place] [phone] Care Team Providers Care Client Experience Consultant Name Role Phone Teresita Munroe DO Primary Care Provider [phone]- [phone] Reason for Visit * Reason Onset Date Comments Medication Question 07/23/2024 Encounter Details Date Type Department Care Team ([facility] st Contact Info) Description 07/23/2024 Telephone [facility] [address] [place] [address] Teresita Munroe DO [address] [place] [address] Medication Question Social History Tobacco Use Types [...] EST TC placed to pt via S strip winder (Dread ID#[id number]) to do a status check and advise to come to [facility] for evaluation if pt is still experiencing symptoms. No answer, LVM to call office back and ask to speak to [facility] Nurses. 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 Anna stated medication has helped but pt is requesting an additional few days of medication. Pt was seen at [facility] on 07/15/24 If any questions contact Anna at [phone] (persian) Pharmacy:[facility] documented in this encounter Plan of Treatment Upcoming Encounters Date Type Department Care Team ([facility] st Contact Info) Description 09/17/2024 11:00 AM EDT Office Visit [address] [phone] Teresita Munroe DO [address] [place] [address] documented as of this encounter Visit Diagnoses Not on filedocumented in this encounter Additional Health Concerns Assessment Noted Time PHQ-9 Depression Total Score: 5 01/22/20 24 9:55 AM EDT documented as of this encounter Care Teams Client Experience Consultant Relationship Specialty Start Date End Date Teresita Munroe DO [address] [place] [address] PCP - General Family Medicine 07/28/14 documented as of this encounter
--- OUTSIDE RECORDS SUMMARY | 2024-08-01 08:18 | XMS_ITS | Encounter Summary ---
Author Organization [employer] Address 75 [facility] 7t [place] [address] Care Team Providers Care Cistern Room Operator Name Role Phone Kamille Munroenifer Primary Care Provider + [phone] Encounter Details Date Type Department Care Team ([facility] st Contact Info) Description 09/14/2023 Orders Only [facility] [address] [place] [address] ProviderFlor MD Social History Tobacco Use Types [...] Description 09/17/2024 11:00 AM EDT Office Visit [facility] [address] [place] [address] Teresita Munroe DO [address] [place] [address] documented as of this encounter Procedures Procedure [...] on filedocumented in this encounter Care Teams Cistern Room Operator Relationship Specialty Start Date End Date Teresita Munroe DO [address] [place] [address] PCP - General Family Medicine 07/28/14 documented as of this encounter
--- OUTSIDE RECORDS SUMMARY | 2024-08-01 08:18 | XMS_ITS | Encounter Summary ---
Author Organization [employer] Address 75 [facility] 7t [place] [address] Care Team Providers Care Data Entry Email Processor Name Role Phone LudwigTeresita Primary Care Provider [phone] Encounter Details Date Type Department Care Team [...] Office Visit [facility] [address] [place], [place] [phone] Teresita Munroe DO [address] [place], [place] [phone] documented as of this encounter Procedures Procedure [...] Hormone, Intact 80.3(H) 8.7 - 77.1 pg/mL [facility] 07/07/2024 1:33 PM EST 07/07/2024 1:33 PM EST us Generic External Data Provider LAB BLOOD ORDERAB LES Final Result [facility] [address] [place] [phone] * (ABNORMAL) Vitamin D, 25-Hydroxy, Total, Immunoassay (07/07/2024 1:29 PM EST) Vitamin D 25-OH Total 12.7(L) >30 ng/mL [facility] Comment:Health Based Referen ce Values*< 20 ng/mL Mhmloxboe00-41 ng/mL Insufficient> 30 ng/mL Sufficient*Santos MARCELINO. N [...] ORDERAB LES Final Result Performing Organization Address City/[facility]/ZIP Co de Phone Number [facility] [address] [place] [phone] * Albumin (07/07/2024 1:29 PM EST) Albumin Level 4.0 3.5 - 5.0 g/dL [facility] 07/07/2024 1:29 PM EST 07/07/2024 1:33 PM EST Generic External Data Provider LAB BLOOD ORDERAB LES Final Result Performing Organization Address [facility]/ZIP Co de Phone Number [facility] [address] [place] [phone] * (ABNORMAL) Basic Metabolic Panel (07/07/2024 1:29 PM EST) Sodium 141 135 - 145 mmol/L [facility] Potassium 4.0 3.3 - 5.1 mmol/L [facility] Chloride 108 96 - 108 mmol/L [facility] Carbon Dioxide 27 22 - 29 mmol/L [facility] Anion Gap 10(L) 12 - 20 [facility] Urea Nitrogen (BUN) 14 9 - 16 mg/dL [facility] Creatinine, Serum 0.72 0.5 - 1.4 mg/dL [facility] Estimated Glomerular Filt Rate >60 [facility] Comment:Chronic Kidney Disea se: Estimated GFR < 60 mL/min/1.59y3Smayhh Kidney Disease: Estimated GFR < 15 mL/min/1.73m2 Glucose 98 60 - 115 mg/dL [facility] Calcium 9.5 8.4 - 10.2 mg/dL [facility] 07/07/2024 1:29 PM EST 07/07/2024 1:33 PM EST us Generic External Data Provider LAB BLOOD ORDERAB LES Final Result [facility] [address] [place] [phone] [phone] documented in this encounter Visit Diagnoses Not on filedocumented in this encounter Additional Health Concerns Assessment Noted Time PHQ-9 Depression Total Score: 5 01/22/20 24 9:55 AM EDT documented as of this encounter Care Teams Data Entry Email Processor Relationship Specialty Start Date End Date Teresita Munroe DO [address] [place] [phone] PCP - General Family Medicine 07/28/14 documented as of this encounter
--- OUTSIDE RECORDS SUMMARY | 2024-08-01 08:18 | XMS_ITS | Encounter Summary ---
Author Organization [employer] Address 75 [facility] 7t [place] [address] Care Team Providers Care Bonding Machine Tender Name Role Phone Teresita Munroe DO Primary Care Provider Encounter Details Date Type Department Care Team (Late st Contact Info) Description 06/15/2022 Abstract [facility] [address] [place] [address] Jelena Morgan DDS [address] [place] [address] Social History Tobacco Use Types Packs/Day Years [...] Description 09/17/2024 11:00 AM EDT Office Visit [facility] [address] [place] [address] Teresita Munroe DO [address] [place] [address] documented as of this encounter Visit Diagnoses Not on filedocumented in this encounter Care Teams Bonding Machine Tender Relationship Specialty Start Date End Date Teresita Munroe DO [address] [place] [address] PCP - General Family Medicine 07/28/14 documented as of this encounter
--- OUTSIDE RECORDS SUMMARY | 2024-08-01 08:18 | XMS_ITS | Encounter Summary ---
Author Organization [employer] Address 75 [facility] 7t [place] [address] Care Team Providers Care Automotive Parts Person Name Role Phone Teresita Munroe DO Primary Care Provider [phone]- [phone] Reason for Visit * Reason Comments Med Refill Encounter Details Date Type Department Care Team ([facility] st Contact Info) Description 01/03/2024 Refill [facility] MED & PEDS [address] [place], [place] [phone] Teresita Munroe DO 230 [facility] [place] [address] 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 complication, unspecified whether intermission coordinator insulin use (CMS/HCC); Osteopenia, unspecified location Social [...] Description 09/17/2024 11:00 AM EDT Office Visit [facility] [address] [place] [address] Teresita Munroe DO [address] [place] [address] documented as of this encounter Visit Diagnoses Diagnosis 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 complication, unspecified whether intermediate insulin use ([facility]) Osteopenia, unspecified location documented in this encounter Care Teams Automotive Parts Person Relationship Specialty Start Date End Date Teresita Munroe DO [address] [place] [address] PCP - General Family Medicine 07/28/14 documented as of this encounter
== END 2024-08-01 08:09 | disposition home or self-care (01) ==
LOC: HO.MAMMO 08:08
PROVIDERS: PCP Family Medicine; Visit Provider Family Medicine
DX: Z12.31 Encounter for screening mammogram for malignant neoplasm of breast (principal)
CPT/HCPCS: 77063; 77067

== ENCOUNTER → 2024-08-01 08:15 | Outpatient (BNV) | payer OTHER, SELFPAY | PROVIDERS: PCP Family Medicine; Visit Provider Internal Medicine | DX: Z12.31 Encounter for screening mammogram for malignant neoplasm of breast (principal) | CPT/HCPCS: 77063; 77067 ==

== ENCOUNTER 2024-09-17 12:52 | Outpatient (REF) | payer OTHER, SELFPAY ==
--- NOTE | ~2024-09-17 | XR_ITS ---
EXAMINATION: XR CHEST CLINICAL INFORMATION: cough x one week COMPARISON: 09/08/2022, 01/25/2022. TECHNIQUE: 2 views of the chest were obtained. FINDINGS: The cardiac, hilar, and mediastinal contours are normal. Aortic mural calcifications. The lungs are mildly hyperaerated, however clear bilaterally. There is minimal scarring in the left base, unchanged. There is no pneumothorax or pleural effusion. Osteopenia. Right shoulder reverse arthroplasty noted. 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 Degenerative changes throughout the spine. No additional suspicious bone or soft tissue abnormalities. XR/XR chest 2V IMPRESSION: No active pulmonary disease. Electronically signed by: Chris Jackson MD 09/17/2024 01:27 PM EDT
--- OUTSIDE RECORDS SUMMARY | 2024-09-17 15:16 | XMS_ITS | Encounter Summary ---
Author Organization [employer] Address 75 [facility] 7t h Floor [place] [phone] Care Team Providers Care Pattern Stamper Name Role Phone Teresita Munroe DO Primary Care Provider +[phone]- [phone] Reason for Visit * Reason Onset Date Comments Med Refill 05/11/2023 Encounter Details Date Type Department Care Team (Late st Contact Info) Description 05/11/2023 Refill [facility] [address] [place] [address] Teresita Munroe DO [address] [place] [address] Chronic pain of both shoulders (Primary Dx) [...] traMADol (Ultram) 50 MG tablet [facility] [address] [place] [address] documented in this encounter Plan of Treatment Not on file documented as of this encounter Visit Diagnoses Diagnosis Chronic pain of both shoulders- Primary documented in this encounter Care Teams Pattern Stamper Relationship Specialty Start Date End Date Teresita Munroe DO [address] [place] [address] PCP - General Family Medicine 07/28/14 documented as of this encounter
--- OUTSIDE RECORDS SUMMARY | 2024-09-17 15:16 | XMS_ITS | Encounter Summary ---
Author Organization [employer] Address 75 [facility] 7t [place] [address] Care Team Providers Care Director Industrial Name Role Phone Kamille Munroenifer Primary Care Provider + [phone] Encounter Details Date Type Department Care Team ([facility] st Contact Info) Description 09/14/2023 Orders Only [facility] [address] [place] [address] ProviderFlor MD Social History Tobacco Use Types [...] on filedocumented in this encounter Care Teams Director Industrial Relationship Specialty Start Date End Date Teresita Munroe DO [address] [place] [address] PCP - General Family Medicine 07/28/14 documented as of this encounter
--- OUTSIDE RECORDS SUMMARY | 2024-09-17 15:16 | XMS_ITS | Encounter Summary ---
Author Organization [employer] Address 75 [facility] 7t [place] [address] Care Team Providers Care Cableman Name Role Phone Teresita Munroe DO Primary Care Provider +[phone]- [phone] Reason for Visit * Reason Comments Med Refill Encounter Details Date Type Department Care Team ([facility] st Contact Info) Description 01/03/2024 Refill [facility] MED & PEDS [address] [place], [place] [phone] Teresita Munroe DO [address] [place] [address] 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 complication, unspecified [...] unspecified whether intermodal customer service insulin use (CMS/[facility]) Osteopenia, unspecified location documented in this encounter Care Teams Cableman Relationship Specialty Start Date End Date Teresita Munroe DO [address] [place] [phone] PCP - General Family Medicine 07/28/14 documented as of this encounter
--- OUTSIDE RECORDS SUMMARY | 2024-09-17 15:16 | XMS_ITS | Clinical Summary ---
Author Organization [employer] Address [address] [place] [address] [address] [place] [address] Care Team Providers Care Provider Relations Rep Name Role Phone LorenTeresita blanco Primary Care Provider Allergies Active Allergy Reactions [...] the skin every 14 (fourteen) days. Active sulfaSALAzine (Azulfidine) 500 MG tablet take [...] oral route twice daily Active sodium chloride (Cook Nasal [place]) 0.65 % nasal sprayIndicatio ns:COVID-19 1-2 sprays [...] assistance becomes available. 2 each 10/11/19 24 2024 Active rosuvastatin (Crestor) 40 MG tablet @@ TAKE 1 TABLET BY MOUTH AT BEDTIME. 28 tablet 11/29/19 24 Active midodrine (Proamatine) 2.5 MG tabletIndicati ons:Hypotensio n, unspecified hypotension type @@ TAKE 1 TABLET BY MOUTH TWICE DAILY 56 tablet 11/29/19 24 Active fenofibrate (Triglide) 160 MG tablet @@TAKE 1 TABLET BY MOUTH DAILY. 28 tablet 11/29/19 24 Active cholecalcifero l VITAMIN D (Vitamin D-3) 50 MCG (1999 UT) tablet @@TAKE 1 TABLET BY MOUTH DAILY. 28 tablet 11/29/19 24 Active GNP 8 [...] without complication, unspecified whether penitentiary insulin use (CMS/HCC) TAKE 1 TABLET BY MOUTH TWICE DAILY WITH MEALS 56 tablet 06/13/19 25 Active Calcium Carb-Cholecalc iferol (Calcium + Vitamin D3) 600-10 MG-MCG tabletIndicati ons:Osteopenia , unspecified location Take 1 tablet by mouth 2 times daily. 56 tablet 5 06/13/19 25 Active albuterol (Ventolin HFA) 108 (90 Base) MCG/ACT inhaler Inhale 2 puffs every 4 (four) hours if needed for wheezing. 54 g 3 07/15/19 25 2025 Active Spacer/Aero-Ho lding Chambers [...] wheezing or shortness of breath. 180 mL 3 07/15/19 25 Active acetaminophen (Tylenol) 500 MG tablet Take 2 tablets (1,000 mg) by mouth every 6 (six) hours if needed for moderate pain or fever for up to 25 doses. 30 tablet 07/15/19 25 Active Umeclidinium [place] (Incruse Ellipta) 62.5 MCG/ACT aerosol powderIndicati ons:Chronic obstructive pulmonary disease, unspecified COPD type (CMS/HCC) Inhale 1 Act (62.5 mcg) Once per day. 30 Act 07/15/19 25 Active Alcohol Swabs (Alcohol Prep) padsIndication s: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 complication, without long-term current use of insulin (CMS/[facility]) 1 each 3 times daily. 100 each 07/15/19 25 Active Misc. Devices (Pulse Oximeter For Finger) misc 1 each 2 times daily. 1 each 07/15/19 25 Active Lancets 33G misc 1 each 3 times daily. 100 each 07/15/19 25 Active FREESTYLE LITE test strip Use as instructed 100 each 07/15/19 25 Active benzonatate (Tessalon Perles) 100 MG capsule Take 1 capsule (100 mg) by mouth if needed in the morning, at noon, and at bedtime for cough for up to 10 days. Do not crush or chew. 30 capsule 09/18/19 25 2024 Active cetirizine (ZyrTEC) 10 MG tablet Take 1 tablet (10 mg) by mouth Once per day. 30 tablet 11 09/18/19 25 2025 Active fluticasone (Flonase Allergy Relief) 50 MCG/ACT nasal spray Administer 2 sprays into each nostril Once per day. Shake gently. Before first use, prime pump. After use, clean tip and replace cap. 16 g 09/18/19 Active montelukast (Singulair) 10 MG tablet Take 1 tablet (10 mg) by mouth at bedtime. 28 tablet 09/18/19 Active predniSONE (Deltasone) 20 MG tablet Take 1 tablet (20 mg) by mouth 2 times daily for 5 days. 10 tablet 09/18/19 25 2024 Active traMADol (Ultram) 50 MG tabletIndicati ons:Chronic pain of both shoulders Take 1 tablet (50 mg) by mouth every 6 (six) hours if needed for severe pain for up to 28 days. 112 tablet 09/18/19 25 2024 Active Ketotifen Fumarate (Alaway) 0.035 % solution Administer 1 drop into affected eye(s) if needed in the morning and at bedtime (eye itching). 10 mL 3 09/18/19 Active fluticasone (Flonase Allergy Relief) 50 MCG/ACT nasal spray spray 2 spray by intranasal route every day in each nostril as needed 11/26/192024 Discontinued(R eorder (will not trigger notification to Pharmacy)) montelukast (Singulair) 10 MG tablet TAKE 1 TABLET BY MOUTH IN THE EVENING. 28 tablet 11/29/192024 Discontinued(R eorder (will not trigger notification to Pharmacy)) fexofenadine (Ramya) 180 MG tablet @@TAKE 1 TABLET BY MOUTH DAILY IN THE MORNING. 28 tablet 11/29/192024 Discontinued traMADol (Ultram) 50 MG tabletIndicati ons:Chronic pain of both shoulders Take 1 tablet (50 mg) by mouth every 6 (six) hours if needed for severe pain for up to 7 days. 28 tablet 07/08/19 25 2024 Discontinued traMADol (Ultram) 50 MG tabletIndicati ons:Chronic pain of both shoulders TAKE 1 TABLET BY MOUTH EVERY 6 HOURS IF NEEDED FOR SEVERE PAIN FOR UP TO 7 DAYS 28 tablet 08/30/192024 Discontinued(R eorder (will not trigger notification to Pharmacy)) predniSONE (Deltasone) 20 MG tablet Take 1 tablet (20 mg) by mouth 2 times daily for 5 days. 10 tablet 09/18/192024 Discontinued(R eorder (will not trigger notification to Pharmacy)) benzonatate (Tessalon Perles) 100 MG capsule Take 1 capsule (100 mg) by mouth if needed in the morning, at noon, and at bedtime for cough for up to 10 days. Do not crush or chew. 30 capsule 09/18/192024 Discontinued(R eorder (will not trigger notification to Pharmacy)) cetirizine (ZyrTEC) 10 MG tablet Take 1 tablet (10 mg) by mouth Once per day. 30 tablet 11 09/18/192024 Discontinued(R eorder (will not trigger notification to Pharmacy)) fluticasone (Flonase Allergy Relief) 50 MCG/ACT nasal spray Administer 2 sprays into each nostril Once per day. Shake gently. Before first use, prime pump. After use, clean tip and replace cap. 16 g 11 09/18/192024 Discontinued(R eorder (will not trigger notification to Pharmacy)) Active Problems Problem Noted Date Diagnosed Date Heartburn 09/17/2024 Osteoporosis without current pathological fractu re 09/24/2023 [...] Date Resolved Date Asthma exacerbation 06/01/2022 10/18/19 23 Assessment & Plan (06/01/2022 11:18 AM EST): Was improved with prednisone but course likely needs to be extended. She completed 5 days with rebound symptoms. Prednisone taper given. No indications for antibiotics at this time. Encounters Date Type Department Care Team Description 09/17/2024 11:00 AM EDT Office Visit [facility] [address] [place] [phone] Teresita Munroe DO 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 complication, without long-term current use of insulin ([facility]) (Primary Dx); Mixed hyperlipidemia; Fatty liver; Generalized anxiety disorder; Infrarenal abdominal aortic aneurysm (AAA) without rupture ([facility]); Chronic obstructive pulmonary disease, unspecified COPD type (CMS/HCC); Rheumatoid arthritis, involving unspecified site, unspecified whether rheumatoid factor present ([facility]); Osteoporosis without current pathological fracture, unspecified osteoporosis type; Chronic pain of both shoulders; Borderline abnormal TFTs; Heartburn; Forgetfulness; Acute URI; Cough, unspecified type; Healthcare maintenance 09/17/2024 Travel 09/08/2024 Patient Outreach [facility] [address] [place] [phone] Teresita Munroe DO Pre-visit Planning (SDOH screening negative and tobacco screening negative) 08/28/2024 Refill [facility] [address] [place], [place] [phone] Soila Scott MD Chronic pain of both shoulders 07/23/2024 Telephone [facility] [address] [place] [address] [phone] Teresita Munroe DO Medication Question 07/22/[address] [phone] Teresita Munroe DO Recall Letter (Recall Letter sent 07/22/24.) 07/15/2024 10:20 AM EST Office Visit [facility] [address] [place] [address] [phone] Chris Emanuel MD 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 complication, without long-term current use of insulin ([facility]) (Primary Dx); Influenza B; COVID-19; Chronic obstructive pulmonary disease, unspecified COPD type ([facility]); Rheumatoid arthritis, involving unspecified site, unspecified whether rheumatoid factor present ([facility]) 07/08/2024 Refill [facility] [address] [place] [address] Teresita Munroe DO Chronic pain of both shoulders 07/07/2024 Orders Only GENERIC EXTERNAL DATA DEPARTMENT Provider, Generic External Data 06/26/2024 Refill [facility] [address] [place] [phone] Teresita Munroe, DO Chronic pain of both shoulders (Primary Dx) 06/25/2024 Refill [facility] [address] [place] [phone] Teresita Munroe, DO Chronic pain of both shoulders (Primary Dx) from Last 3 Months Immunizations Name Administration [...] Access Answer Date Recorded Internet Access Q1 Yes 09/08/2024 Internet Access Q2 I do not want or need it 12/2024 Comments No Sex and Gender Information Value Date Recorded Sex Assigned at Female 04/03/2022 10:18 AM EDT Legal Sex Female 10:18 AM EDT Gender Identity Female 04/03/2022 10:18 AM EDT Sexual Orientation Straight 04/03/2022 10 :18 AM EDT Last Filed Vital Signs Vital Sign Reading Time Taken Comments Blood Pressure 126/78 09/17/2024 11:52 AM EDT Pulse 73 09/17/2024 11:52 AM EDT Temperature 37.1 ??C (98.7 ??F) 09/17/2024 11:52 AM E DT Respiratory Rate 20 09/17/2024 11:52 AM EDT Oxygen Saturation 94% 09/17/2024 11:52 AM EDT Inhaled Oxygen Concentration - - Weight 67.1 kg (148 lb) 09/17/2024 11:52 AM EDT Height 160 cm (5' 3 ) 09/17/2024 11:52 AM EDT Body Mass Index 26.22 09/17/2024 11:52 AM EDT Plan of Treatment Health Maintenance Due Date Last Done Comments CT Colonography 1950 Dental Prophylaxis 1950 Dental X-Ray: Bitewings 1950 FIT DNA/Cologuard 1950 FIT 1950 FOBT 1950 Sigmoidoscopy 1950 Diabetes: Foot Exam 1959 Eye Exam 1959 Hepatitis A Vaccines (1 of 2 - Risk 2-dose series) 1968 Zoster Vaccines (3 of 3) 10/17/2021 08/22/2021, 07/2014 Dental Oral Exam 12/11/2022 06/12/2022 COVID-19 Vaccine ( season) 2024 05/09/2021, 09/09/2020, 08/12/2020, Additional history exists Influenza Vaccine (#1) 2024 , 06/09/2022, 05/24/2021, Additional history exists RSV Patients and Patients Aged 60 years or older (1 - 1-dose 75+ series) 2024 Depression Screening 01/21/2025 01/22/2024, 01/22/20 24 Diabetes: Hemoglobin A1C 03/19/2025 025, 04/09/2024, 01/22/2024, Additional history exists Diabetes: Urine Protein Screening 04/09/2025 04/09/2024, 10/17/2022, 08/22/2021, Additional history exists Lipid Panel 04/09/2025 04/09/2024, 10/02, 02/21/2022, Additional history exists Dental X-Ray: Full Mouth 06/13/2025 06/12/2022 SDOH Screening 09/08/2025 09/08/2024 Alcohol/Substance Use Screening 09/17/2025 09/17/2024 Tobacco Screening 09/17/2025 09/17/2024 Colonoscopy 11/10/2025 11/10/2020, 11/03/2014 Colorectal Cancer Screening [...] Procedure Name Priority Date/Time Associated Diagnosis Comments XR CHEST 2 VIEWS STAT 09/17/2024 12:5 3 PM EDT Acute URI POCT INFLUENZA B (ID NOW RAPID MOLECULAR) Routine 09/17/2024 12:38 PM EDT Cough, unspecified type POCT INFLUENZA A (ID NOW RAPID MOLECULAR) Routine 09/17/2024 12:38 PM EDT Cough, unspecified type POCT RAPID COVID ANTIGEN Routine 09/17/2024 12:30 PM EDT Cough, unspecified type POCT GLYCATED HEMOGLOBIN, TOTAL Routine 09/17/2024 11:56 AM EDT 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 complication, without long-term current use of insulin ([facility]) POCT GLUCOSE Routine 09/17/2024 11:55 AM EDT 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 complication, without long-term current use of insulin ([facility]) BI MAMMOGRAM SCREENING TOMOSYNTHESIS BILATERAL Routine 08/01/2024 8:15 AM EST POCT INFLUENZA B (ID NOW RAPID MOLECULAR) [...] METABOLIC PANEL Routine 07/07/2024 1:29 PM EST HEPATITIS PANEL, GENERAL Routine 04/09/2024 9:31 AM EST LIPID PANEL, STANDARD Routine 04/09/2024 9:31 AM [...] Recently Relevant to Health Maintenance Results * XR Chest 2 Views (09/17/2024 12:53 PM EDT) Anatomical Region Laterality Modality Chest Radiographic Dayana ging 09/17/2024 12:5 3 PM EDT Narrative 09/17/2024 1:31 PM EDT ?[facility] ?[address] ?[place] [address] ?XRay Report ? Signed ? Patient: Gagan,Aspen ?MR#: [id number] ?? 4 ? : 1950 ?Acct:[id number] ? Age/Sex: 74 / F ?ADM Date: 09/17/24 ? Loc: HO.HHCX ? Attending Dr: Teresita Munroe DO ? Ordering Physician: Teresita Munroe DO ?? Date of Service: 09/17/24 ?? Procedure(s): XR chest 2V ?? Accession Number(s): [id number] ? cc: Teresita Munroe DO ? EXAMINATION: ?? XR CHEST ? CLINICAL INFORMATION: ?? cough x one week ? COMPARISON: ?? 09/08/2022, 01/25/2022. ? TECHNIQUE: ?? 2 views of the chest were obtained. ? FINDINGS: ?? The cardiac, hilar, and mediastinal contours are normal. Aortic mural ?? calcifications. ? The lungs are mildly hyperaerated, however clear bilaterally. There is ?? minimal scarring in the left base, unchanged. There is no pneumothorax ?? or pleural effusion. ? Osteopenia. ?? Right shoulder reverse arthroplasty noted. AVN of the left humeral head ?? noted with mild subarticular collapse. ?? Degenerative changes throughout the spine. ? No additional suspicious bone or soft tissue abnormalities. ? XR/XR chest 2V ?? IMPRESSION: ?? No active pulmonary disease. ? Electronically signed by: ??Chris Jackson MD ??09/17/2024 01:27 PM EDT RP ? Dictated By: ?Chris Jackson MD ? Signed By: ?<Electronically signed by Chris Jackson MD in OV> ?09/17/24 1327 ? DD/ 1253 ? TD/TT: 09/17/24 1300 ? Garment Form Assembler: ? Procedure Note Donotgraceter, Image - 09/17/[address] [address] XRay Report Signed Patient: Shirin Farah#: [id number] 4 : 9Acct:[id number] Age/Sex: 74 / FADM Date: 09/17/24 Loc: HO.HHCX Attending Dr: Teresita Munroe DO Ordering Physician: Teresita Munroe DO Date of Service: 09/17/24 Procedure(s): XR chest 2V Accession Number(s): [id number] cc: Teresita Munroe DO EXAMINATION: XR CHEST CLINICAL INFORMATION: cough x one week COMPARISON: 09/08/2022, 01/25/2022. TECHNIQUE: 2 views of the chest were obtained. FINDINGS: The cardiac, hilar, and mediastinal contours are normal. Aortic mural calcifications. The lungs are mildly hyperaerated, however clear bilaterally. There is minimal scarring in the left base, unchanged. There is no pneumothorax or pleural effusion. Osteopenia. Right shoulder reverse arthroplasty noted. 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 Degenerative changes throughout the spine. No additional suspicious bone or soft tissue abnormalities. XR/XR chest 2V IMPRESSION: No active pulmonary disease. Electronically signed by: Chris Jackson MD 09/17/2024 01:27 PM EDT Dictated By: Chris Jackson MD Signed By: <Electronically signed by Chris Jackson MD in OV> 09/17/24 1327 DD/ 1253 TD/TT: 09/17/24 1300 Garment Form Assembler: Teresita Munroe DO IMG XR PROCEDURES Final Resu lt * POCT Rapid Influenza B SANCHES ID NOW (09/17/2024 12:38 PM EDT) Only the most recent of2 resultswithin the time period is included. Influenza B Negative Negative, Indeterminate [facility] QC Media Lot # [id number] [facility] Lot# Expiration Date [facility] Swab 09/17/2024 12:3 8 PM EDT Teresita Munroe DO POINT OF CARE TEST ENTER/GUME T ORDERABLES Final Result Performing Organization Address [facility]/ZIP Co de Phone Number [facility] [address] [place] [phone] * POCT Rapid Influenza A SANCHES ID NOW (09/17/2024 12:38 PM EDT) Only the most recent of2 resultswithin the time period is included. Influenza A Negative Negative, Indeterminate [facility] QC Media Lot # [id number] [facility] Lot# Expiration Date [facility] Swab 09/17/2024 12:3 8 PM EDT Teresita Munroe DO POINT OF CARE TEST ENTER/GUME T ORDERABLES Final Result Performing Organization Address City/[facility]/ZIP Co de Phone Number [facility] [address] [place] [phone] * POCT Rapid Covid-19 BinaxNOW (09/17/2024 12:30 PM EDT) Only the most recent of2 resultswithin the time period is included. Rapid COVID Ag Negative QC Media Lot # [id number] Lot# Expiration Date ,026 Swab 09/17/2024 12:3 0 PM EDT Teresita Munroe DO POINT OF CARE TEST ENTER/GUME T ORDERABLES Final Result * POCT HGB A1C (09/17/2024 11:56 AM EDT) Hemoglobin A1C 6.0 4.0 - 6.0 % QC Media Lot # [id number] Lot# Expiration Date ,026 Blood 09/17/2024 11:5 6 AM EDT Teresita Munroe DO POINT OF CARE TEST ENTER/GUME T ORDERABLES Final Result * POCT Glucose (09/17/2024 11:55 AM EDT) Glucose Blood, POC 78 60 - 200 mg/dL QC Media Lot # [id number] Lot# Expiration Date , Blood Capillary blood specimen / Unknown 09/17/2024 11:55 AM EDT Teresita Munroe DO POINT OF CARE TEST ENTER/GUME T ORDERABLES Final Result * BI Mammogram Screening Tomosynthesis Bilateral (08/01/2024 8:15 AM EST) Anatomical Region Laterality Modality Breast Bilateral Mammography 08/01/2024 8:15 AM EST Narrative 08/04/2024 3:31 PM EST ? [facility] ? [address] ?[place] [address] ? Mammography Report ? Signed ? Patient: Gagan,Aspen ?MR#: [id number] ?? 4 ? : 1950 ?Acct:[id number] ? Age/Sex: 74 / F ?ADM Date: 02/28/25 ? Loc: HO.MAMMO ? Attending Inocencio Munroe DO ? Ordering Physician: Teresita Munroe DO ?Results: 1N ?? egative ? Date of Service: 08/01/24 ?Follow Up: 1 Year From Orig ?? inal Mammogram ? Procedure(s): MM tomosynthesis screening BI ?? Accession Number(s): [id number] ? cc: Teresita Munroe DO ? EXAMINATION: ?? MM SCREENING DIGITAL BREAST TOMOSYNTHESIS, BILATERAL ? CLINICAL INFORMATION: ? Screening. Asymptomatic. ? COMPARISON: ?? Mammography: Comparison is made with available priors ? TECHNIQUE: ?? Digital breast mammography with tomosynthesis is performed in both the ?? craniocaudal and mediolateral oblique views along with computer-aided ?? detection (CAD). ? FINDINGS: ?? The breasts are heterogeneously dense, which may obscure small masses ?? (ACR BI-RADS breast composition Category c). ? There are no significant masses, abnormal calcifications, or other ?? abnormalities. ? MM/MM tomosynthesis screening BI ?? IMPRESSION: ?? No mammographic evidence of malignancy. ? ASSESSMENT: ? BI-RADS BI-RADS 1 - Negative ? RECOMMENDATION: ?? Routine annual mammography screening. ? 1 year F/U ? This examination should not preclude the clinical evaluation of a ?? suspicious palpable abnormality. ? This patient's information was entered into a reminder system with a ?? target due date for their next mammogram. ? Electronically signed by: ??Brittany Cadet DO ??08/04/2024 03:28 PM EST ?? RP ? Dictated By: ?Brittany Cadet DO ? Signed By: ?<Electronically signed by Brittany Cadet, DO in OV> ? 08/04/24 1528 ? DD/ 4 ? TD/TT: 08/01/24825 ? Garment Form Assembler: ? Procedure Note Donotuseinterpreter, Image - 08/04/2024 [facility] [address] [place], [place] [address] Mammography Report Signed Patient: Shirin Farah#: [id number] 4 : 9Acct:[id number] Age/Sex: 74 / FADM Date: 08/01/24 Loc: HO.MAMMO Attending Dr: Teresita Munroe DO Ordering Physician: Teresita Munroeults: 1N egative Date of Service: 08/01/24Follow Up: 1 Year From Orig inal Mammogram Procedure(s): MM tomosynthesis screening BI Accession Number(s): [id number] cc: Teresita Munroe DO EXAMINATION: MM SCREENING DIGITAL BREAST TOMOSYNTHESIS, BILATERAL CLINICAL INFORMATION: Screening. Asymptomatic. COMPARISON: Mammography: Comparison is made with available priors TECHNIQUE: Digital breast mammography with tomosynthesis is performed in both the craniocaudal and mediolateral oblique views along with computer-aided detection (CAD). FINDINGS: The breasts are heterogeneously dense, which may obscure small masses (ACR BI-RADS breast composition Category c). There are no significant masses, abnormal calcifications, or other abnormalities. MM/MM tomosynthesis screening BI IMPRESSION: No mammographic evidence of malignancy. ASSESSMENT: BI-RADS BI-RADS 1 - Negative RECOMMENDATION: Routine annual mammography screening. 1 year F/U This examination should not preclude the clinical evaluation of a suspicious palpable abnormality. This patient's information was entered into a reminder system with a target due date for their next mammogram. Electronically signed by: Brittany Cadet DO 08/04/2024 03:28 PM [facility] Dictated By: Brittany Cadet DO Signed By: <Electronically signed by Brittany Cadet DO in OV> 08/04/24 1528 DD/ 0815 TD/TT: 08/01/24 0826 Garment Form Assembler: us Teresita Baileyrachel DO IMG BI PROCEDURES Final Resu lt * (ABNORMAL) PTH, Intact Without Calcium (07/07/2024 1:33 PM EST) Parathyroid Hormone, Intact 80.3(H) 8.7 - 77.1 pg/mL [facility] 07/07/2024 1:33 PM EST 07/07/2024 1:33 PM EST Generic External Data Provider LAB BLOOD ORDERAB LES Final Result Performing Organization Address [facility]/ZIP Co de Phone Number [facility] [address] [place] [phone] * (ABNORMAL) Vitamin D, 25-Hydroxy, Total, Immunoassay (07/07/2024 1:29 PM EST) Vitamin D 25-OH Total 12.7(L) >30 ng/mL [facility] Comment:Health Based Referen ce Values*< 20 ng/mL [id number] ng/mL Insufficient> 30 ng/mL Sufficient*Santos MARCELINO. N [...] ORDERAB LES Final Result Performing Organization Address [facility]/ZIP Co de Phone Number [facility] [address] [place] [phone] * Albumin (07/07/2024 1:29 PM EST) Pathologist [facility] Albumin Level 4.0 3.5 - 5.0 g/dL [facility] 07/07/2024 1:29 PM EST 07/07/2024 1:33 PM EST Generic External Data Provider LAB BLOOD ORDERAB LES Final Result Performing Organization Address [facility] Co de Phone Number [facility] [address] [place] [phone] * (ABNORMAL) Basic Metabolic Panel (07/07/2024 1:29 PM EST) [facility] Sodium 141 135 - 145 mmol/L [facility] Potassium 4.0 3.3 - 5.1 mmol/L [facility] Chloride 108 96 - 108 mmol/L [facility] Carbon Dioxide 27 22 - 29 mmol/L [facility] Anion Gap 10(L) 12 - 20 [facility] Urea Nitrogen (BUN) 14 9 - 16 mg/dL [facility] Creatinine, Serum 0.72 0.5 - 1.4 mg/dL [facility] Estimated Glomerular Filt Rate >60 [facility] Comment:Chronic Kidney Disea se: Estimated GFR < 60 mL/min/[id number] Kidney Disease: Estimated GFR < 15 mL/min/1.73m2 Glucose 98 60 - 115 mg/dL [facility] Calcium 9.5 8.4 - 10.2 mg/dL [facility] 07/07/2024 1:29 PM EST 07/07/2024 1:33 PM EST Generic External Data Provider LAB BLOOD ORDERAB LES Final Result Performing Organization Address [facility] Co de Phone Number [facility] [address] [place] [phone] * Hepatitis Panel, General (04/09/2024 9:31 AM EST) Hepatitis A IgM Nonreactive Nonreactive [facility] Comment:IgM antibodies to GUERRA V not detected; does not exclude earlyacute or recovered HAV infection. ~Hepatitis B Surface Antibody REACTIVE Nonreactive [facility] Comment:REACTIVE: > 11.99 mI U/mL Hepatitis B Core Antibody Nonreactive Nonreactive [facility] Hepatitis C Antibody Nonreactive Nonreactive [facility] Comment:Antibodies to HCV no t detected; does not exclude early acuteHCV infection. Hepatitis B Surface Ag Negative Negative [facility] 04/09/2024 9:31 AM EST 04/09/2024 9:31 AM EST us Generic External Data Provider LAB BLOOD ORDERAB LES Final Result [facility] [address] [place] [phone] * Lipid Panel, Standard (04/09/2024 9:31 AM EST) Triglycerides 88 <150 mg/dL [facility] Comment:Desirable Triglyceri de: less than 150 mg/dLBorderline High Triglyceride 150-199 mg/dLHigh Triglyceride: 200-499 mg/dLVery High Triglyceride: greater than or equal to 5OO mg/dL Cholesterol 97 <200 mg/dL [facility] Comment:Desirable Cholestero l: less than 200 mg/dLBorderline High Cholesterol: 200-239 mg/dLHigh Cholesterol: greater than 239 mg/dL LDL Cholesterol Calculated 32 <100 mg/dL [facility] Comment:Desirable LDL: less than 100 mg/dLNear Optimal/Above Optimal LDL: 110- 129 mg/dLBorderline High LDL: 130-159 mg/dLHigh LDL: 160-189 mg/dLVery High LDL: greater than or equal to 190 mg/dL HDL Cholesterol 48 >40 mg/dL [facility] Comment:Desirable HDL: great er than 40 mg/dL Note: This HDL assay may give artificially low results in patients with liver disease. Blood Venous blood specimen / Unknown 04/09/2024 9:31 AM EST 04/09/2024 9:31 AM EST us Teresita Ludwig DO LAB BLOOD ORDERABLES Final R esult Performing Organization Address [facility] de Phone Number [facility] [address] [place] [phone] * Albumin, Random Urine W/Creatinine (04/09/2024 9:28 AM EST) Creatinine, Urine 128.14 mg/dL [facility] Microalbumin Urine 12.0 mg/L [facility] Microalbum Creatinine Ratio Ur 9.3 <30 ug/mg cr [facility] Comment:Albumin/Creatinine R atio Reference Ranges: Normal: < 30 ug/mg creatinine Microalbuminuria: 30 - 300 ug/mg creatinineClinical Albuminuria: > 300 ug/mg creatinine Urine (Urine, Random) 04/09/2024 9:28 AM EST 04/09/2024 9:40 AM EST us Teresita Ludwig DO LAB URINE ORDERABLES Final R esult Performing Organization Address [facility] Co de Phone Number [facility] [address] [place] [phone] * Hm Colonoscopy (11/10/2020 10:20 AM EDT) Historical Provider HEALTH MAINTENANCE Final Result from Last 3 Months or Most Recently Relevant to Health Maintenance Insurance [facility] OPT[employer] (O D-SNP) D[facility]AL - [facility] Care Teams Provider Relations Rep Relationship Specialty Start Date End Date Teresita Munroe DO [address] [place] [phone] PCP - General Family Medicine 07/28/14
--- OUTSIDE RECORDS SUMMARY | 2024-09-17 15:16 | XMS_ITS | Encounter Summary ---
Author Organization [employer] Address [address] [facility] [address] [place] [address] Care Team Providers Care Waste Salvager Name Role Phone Teresita Munroe DO Primary Care Provider Encounter Details Date Type Department Care Team ([facility] st Contact Info) Description 08/03/2022 Abstract [facility] [address] [place] [address] Bhanu Barakat DDS [address] [place] [address] Social History Tobacco Use Types Packs/Day Years [...] on filedocumented in this encounter Care Teams Waste Salvager Relationship Specialty Start Date End Date Teresita Munroe DO [address] [place] [phone] PCP - General Family Medicine 07/28/14 documented as of this encounter
--- OUTSIDE RECORDS SUMMARY | 2024-09-17 15:16 | XMS_ITS | Encounter Summary ---
Author Organization [employer] Address [address] [facility] [address] [place] [address] Care Team Providers Care Signal Technician Name Role Phone LorenTeresita blanco Primary Care Provider [phone] Encounter Details Date Type Department Care Team (Latest Contact Info) Description 09/17/2024 Travel Social History Tobacco Use Types Packs/Day Years [...] documented as of this encounter Care Teams Signal Technician Relationship Specialty Start Date End Date Teresita Munroe DO [address] [place] [address] PCP - General Family Medicine 07/28/14 documented as of this encounter
--- OUTSIDE RECORDS SUMMARY | 2024-09-17 15:16 | XMS_ITS | Encounter Summary ---
Author Organization [employer] Address [address] [facility] [address] [place] [address] Care Team Providers Care Roofing Foreman Name Role Phone Teresita Munroe DO Primary Care Provider Encounter Details Date Type Department Care Team (Late st Contact Info) Description 06/15/2022 Abstract [facility] [address] [place] [address] Jelena Morgan DDS [address] [place] [address] Social History Tobacco Use Types Packs/Day Years [...] on filedocumented in this encounter Care Teams Roofing Foreman Relationship Specialty Start Date End Date Teresita Munroe DO [address] [place] [phone] PCP - General Family Medicine 07/28/14 documented as of this encounter
--- OUTSIDE RECORDS SUMMARY | 2024-09-17 15:16 | XMS_ITS | Encounter Summary ---
Author Organization [employer] Address [address] [facility] [address] [place] [address] Care Team Providers Care Coater Carbon Paper Name Role Phone Deandre Munroe DO Primary Care Provider Reason for Referral * Consultation (Urgent) - Pending Review Specialty Diagnoses / Procedures Referred By Shakila graves Referred To Contact Neurology Diagnoses Forgetfulness Deandre Munroe DO [address] [place] [address] Phone: tel: fax: Referral ID Status Reason Start Date Expiration Date Visits Requested Visits Authorized [id number] Pending Review Specialty Services Required 09/17/2024 09/17/2025 1 1 * Imaging (Routine) - Pending Review Specialty Diagnoses / Procedures Referred By Shakila graves Referred To Contact Radiology Diagnoses Forgetfulness Procedures MR Brain w/o Contrast Deandre Munroe DO [address] [place] [address] Phone: tel: fax: [facility] [address] [place] [address] Phone: tel: fax: Referral ID Status Reason Start Date Expiration Date V isits Requested Visits Authorized [id number] Pending Review 09/17/2024 09/17/2025 1 1 Encounter Details Date Type Department Care Team (Late st Contact Info) Description 09/17/2024 11:00 AM EDT Office Visit [facility] [address] [place], [place] [phone] Deandre Munroe DO [address] [place], [place] [phone] 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 complication, without long-term current use of insulin (CMS/HCC) (Primary Dx); Mixed hyperlipidemia; Fatty liver; Generalized anxiety disorder; Infrarenal abdominal aortic aneurysm (AAA) without rupture (CMS/HCC); Chronic obstructive pulmonary disease, unspecified COPD type (CMS/HCC); Rheumatoid arthritis, involving unspecified site, unspecified whether rheumatoid factor present (CMS/HCC); Osteoporosis without current pathological fracture, unspecified osteoporosis type; Chronic pain of both shoulders; Borderline abnormal TFTs; Heartburn; Forgetfulness; Acute URI; Cough, unspecified type; Healthcare maintenance Social History Tobacco Use Types Packs/Day Years [...] Mass Index 26.22 09/17/2024 11:52 AM EDT documented in this encounter Progress Notes * Deandre Munroe, DO - 09/17/2024 11:00 AM EDT SUBJECTIVE: Aspen Farah is a 74 y.o. year old female who presents for follow up. HPI She was seen by rheum in Mar. Her sulfasalazine and humira were stopped and she was started on orencia and medrol taper. She had f/u in Jul and enbrel was stopped. Orencia was not approved. She was started on new infusions and advised to continue methotrexate. Tomorrow is her 2nd infusion and has f/u at the end of next mos. She thinks that the infusions has helped a little. She had f/u with endo in Mar and was sent for labs. Endo is considering treatment with prolia vs reclast. She was sent for repeat TFTs. She had f/u in Jul and was sent for repeat labs with plan to start prolia. Her repeat thyroid testswere similar and advised no further f/u as asymptomatic. She has f/u at the end of the mos. She had repeat arterial US in Jun and f/u with vascular in Jul. She was advised to continue annual surveillance. She had annual eye exam last March. She is getting eye injections monthly at [facility]. Her GAS PLUMBING INSPECTOR c/o worsening memory. She feels that that her memory was the same for a while but recently feels that her memory started to worsen again. Her kids are also concerned about her memory. She c/o bad allergies since last week. She ran out of her meds and needs refills. She doesn't recall receiving the carlos manuel rx. She has not had any fevers. Her GAS PLUMBING INSPECTOR had covid and flu a month ago. She needs RF of albuterol and wants something for the cough. She needs new rx for grab bar for her bed because hers is currently broken. Review of Systems Constitutional: Negative for chills and fever. HENT: Positive for congestion, postnasal drip, rhinorrhea and voice change. Negative for ear pain, sinus pressure and sore throat. Eyes: Positive for itching. Negative for pain, discharge and visual disturbance. Respiratory: Positive for cough. Negative for shortness of breath and wheezing. Cardiovascular: Negative for chest pain and leg swelling. Gastrointestinal: Negative for abdominal pain, diarrhea and vomiting. Neurological: Negative for headaches. Patient Active Problem List Diagnosis Abdominal aortic [...] both shoulders Healthcare maintenance Borderline abnormal TFTs Heartburn Allergies Allergen Reactions Seafood [Shellfish Allergy] Hives OBJECTIVE Vitals: 09/17/24 1152 BP: 126/78 BP Location: Left arm Patient Position: Sitting BP Cuff Size: Adult Pulse: 73 Resp: 20 Temp: 98.7 ??F (37.1 ??C) TempSrc: Oral SpO2: 94% Weight: 148 lb (67.1 kg) Height: 5' 3 (1.6 m) Physical Exam Constitutional: General: She is not in acute distress. Appearance: Normal appearance. HENT: Right Ear: Tympanic membrane, ear canal and external ear normal. Left Ear: Tympanic membrane, ear canal and external ear normal. Nose: Congestion present. No rhinorrhea. Mouth/Throat: Pharynx: Posterior oropharyngeal erythema present. No oropharyngeal exudate. Neck: Comments: Shotty, nontender anterior cervical LAD Cardiovascular: Rate and Rhythm: Normal rate and regular rhythm. Heart sounds: Normal heart sounds. No murmur heard. Pulmonary: Effort: Pulmonary effort is normal. Breath sounds: Normal breath sounds. No wheezing or rhonchi. Musculoskeletal: Cervical back: Neck supple. No tenderness. Lymphadenopathy: Cervical: Cervical adenopathy present. Neurological: General: No focal deficit present. Mental Status: She is alert and oriented to person, place, and time. Cranial Nerves: No cranial nerve deficit. Motor: No weakness. Gait: Gait normal. Psychiatric: Mood and Affect: Mood normal. Office Visit on 09/17/2024 Component Date Value Ref Range Status Glucose Blood, POC 09/17/2024 78 60 - 200 mg/dL Final QC Media Lot # 09/17/2024 [id number] Final Lot# Expiration Date 09/17/2024 [id number] Final Hemoglobin A1C 09/17/2024 6.0 4.0 - 6.0 % Final QC Media Lot # 09/17/2024 [id number] Final Lot# Expiration Date 09/17/2024 [id number] Final Rapid COVID Ag 09/17/2024 Negative Final QC Media Lot # 09/17/2024 [id number] Final Lot# Expiration Date 09/17/2024 [id number] Final Influenza A 09/17/2024 Negative Negative, Indeterminate Final QC Media Lot # 09/17/2024 [id number] Final Lot# Expiration Date 09/17/2024 [id number] Final Influenza B 09/17/2024 Negative Negative, Indeterminate Final QC Media Lot # 09/17/2024 [id number] Final Lot# Expiration Date 09/17/2024 [id number] Final ASSESSMENT/PLAN Diagnoses and all orders for this visit: 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 complication, unspecified whether senior care insulin use ([facility]) A1c at goal -cont metformin daily -cont regular FS monitoring -cont aspirin and crestor daily -Cr/GFR and urine microalbumin nml Apr 2024 -BP wnl -s/p optho eval Mar 2024 with [facility] -foot exam next visit* - POCT Glucose - POCT HGB A1C Mixed hyperlipidemia LDL at goal Apr 2024 -cont current med regimen Fatty liver -abd US with echogenic liver, no focal lesion MAR 2023 -> repeat next visit -AFP and LFTs nml Apr 2024 -Hep A immune -s/p Hep B vaccine Generalized anxiety disorder -she denies any current SI/HI -she has the number for crisis and contracts for safety -cont current med regimen as per psychiatry -f/u with therapist and psychiatrist as scheduled Infrarenal abdominal aortic aneurysm (AAA) without rupture -abd US with fusiform infrarenal abdominal aortic aneurysm Jun 2024, repeat as per vascular -f/u with vascular as scheduled, due Jul 2025 Chronic obstructive pulmonary disease, unspecified COPD type (CMS/HCC) Stable -cont advair BID -cont incruse daily -cont singulair daily -cont albuterol as needed -f/u with pulm prn Rheumatoid arthritis, involving unspecified site, unspecified whether rheumatoid factor present (CMS/HCC) Seronegative RA with hand and elbow pain -cont MTX weekly as per rheum -cont Tocilizumab infusions monthly as her rheum -f/u with retail agent this mos as scheduled Osteoporosis without current pathological fracture, unspecified osteoporosis type With >5 yr treatment with fosamax -DEXA with osteoporosis Feb 2024 -cont vit D supplementation -awaiting initiation of prolia -f/u with endo as scheduled Chronic pain of both shoulders s/p TSA JAN 2022 -encouraged standing doses of tylenol -cont lidocaine patches -encouraged diclofenac gel -cont tramadol as rx'd for pain control -f/u with ortho prn Bilateral elbow joint pain -elbow XR unremarkable FEB 2023 -encouraged diclofenac gel -she declines eval with ortho -f/u with rheum as scheduled Borderline abnormal TFTs TSH nml Apr 2024 -no need for further eval per endo Heartburn Controlled -cont pepcid prn Forgetfulness Recent worsening sx -TSH, RPR, B12 and folate Jun 2018 -MRI with mild microvascular disease and mild atrophy Apr 2018 -> referred for repeat -referred to neurology for eval Acute URI Likely viral vs allergic rhinitis -provided reassurance -encouraged supportive care measures -referred for CXR -treat with prednisone daily x 5 days -start zyrtec daily -encouraged flonase daily -trial tessalon perles to help with cough -cont albuterol prn -advised rtc if no improvement or sx worsen, she agrees with plans - XR Chest 2 Views; Future Cough, unspecified type - POCT Rapid Covid-19 BinaxNOW - POCT Rapid Influenza A SANCHES ID NOW - POCT Rapid Influenza B SANCHES ID NOW Healthcare maintenance -s/p flu vaccine FEB 2023 -she declines COVID vaccine -encouraged RSV vaccine -s/p Tdap SEP 2023 -s/p pneumovax SEP 2016 -s/p prevnar APR 2015 -s/p PCV20 FEB 2023 -s/p zoster vaccine APR 2015 -s/p shingrix #02 AUG 2021, encouraged dose #2 -Hep A immune -s/p Hep B vaccine -T-spot negative Apr 2024 -pap smear wnl 2005, 2009 and 2012 with no h/o abnml pap smears, no need for further screening -mammo BIRADS 05 JUL 2024 -DEXA with osteoporosis Feb 2024 -colonoscopy with hyperplastic polyps NOV 2020, repeat 5 years -STI/HIV screen negative DEC 2017 F/U with me in 4 mos or sooner prn Current Outpatient Medications: acetaminophen (Tylenol) 500 MG tablet, Take 2 tablets (1,000 mg) by mouth every 6 (six) hours if needed for moderate pain or fever for up to 25 doses., Disp: 30 tablet, Rfl: 0 albuterol (Ventolin HFA) 108 (90 Base) MCG/ACT inhaler, Inhale 2 puffs every 4 (four) hours if needed for wheezing., Disp: 54 g, Rfl: 3 Alcohol Swabs (Alcohol Prep) pads, 1 each 3 times daily., Disp: 100 each, Rfl: 5 aspirin 81 MG EC tablet, Take 1 tablet by mouth at bed time., Disp: , Rfl: benzonatate (Tessalon Perles) 100 MG capsule, Take 1 capsule (100 mg) by mouth if needed in the morning, at noon, and at bedtime for cough for up to 10 days. Do not crush or chew., Disp: 30 capsule, Rfl: 0 busPIRone (Buspar) 10 MG tablet, Take 1 tablet by oral route twice daily, Disp: , Rfl: Calcium Carb-Cholecalciferol (Calcium + Vitamin D3) 600-10 MG-MCG tablet, Take 1 tablet by mouth 2 times daily., Disp: 56 tablet, Rfl: 5 cetirizine (ZyrTEC) 10 MG tablet, Take 1 tablet (10 mg) by mouth Once per day., Disp: 30 tablet, Rfl: 11 cholecalciferol VITAMIN D (Vitamin D-3) 50 MCG (1999 UT) tablet, @@TAKE 1 TABLET BY MOUTH DAILY., Disp: 28 tablet, Rfl: 11 clopidogrel (Plavix) 75 MG tablet, Take 1 tablet by oral route every day, Disp: , Rfl: Diclofenac Sodium 1 % gel, Apply 2 g topically if needed in the morning, at noon, in the evening, and at bedtime (pain)., Disp: 150 g, Rfl: 3 docusate sodium (Colace) 100 MG capsule, Take 1 capsule by mouth every 12 (twelve) hours., Disp: , Rfl: DULoxetine (Cymbalta) [address] capsule, Take 1 capsule by oral route twice daily, Disp: , Rfl: evolocumab (Repatha SureClick) 140 MG/ML injection, Inject 1 mL under the skin every 14 (fourteen) days., Disp: , Rfl: ezetimibe (Zetia) 10 MG tablet, Take 1 tablet by oral route once daily, Disp: , Rfl: fenofibrate (Triglide) 160 MG tablet, @@TAKE 1 TABLET BY MOUTH DAILY., Disp: 28 tablet, Rfl: 11 fluticasone (Flonase Allergy Relief) 50 MCG/ACT nasal spray, Administer 2 sprays into each nostril Once per day. Shake gently. Before first use, prime pump. After use, clean tip and replace cap., Disp: 16 g, Rfl: 11 Fluticasone-Salmeterol 500-50 MCG/ACT aerosol powder , INHALE 1 PUFF BY MOUTH 2 TIMES DAILY, Disp: 60 each, Rfl: 5 FREESTYLE LITE test strip, Use as instructed, Disp: 100 each, Rfl: 5 gabapentin (Neurontin) 300 MG capsule, , Disp: , Rfl: gabapentin (Neurontin) 400 MG capsule, Take 1 capsule by oral route once daily, Disp: , Rfl: GNP 8 Hour Arthritis Relief 650 MG ER tablet, TAKE 1 TABLET BY MOUTH EVERY 8 HOURS NEEDED FOR MILD PAIN. DO NOT CURSH, CHEW. OR SPLIT., Disp: 60 tablet, Rfl: 0 ipratropium-albuterol (Duo-Neb) 0.5-2.5 mg/3 mL nebulizer solution, Take 3 mL by nebulization if needed in the morning, at noon, in the evening, and at bedtime for wheezing or shortness of breath., Disp: 180 mL, Rfl: 3 ketorolac (Acular) 0.5 % ophthalmic solution, , Disp: , Rfl: Lancets 33G misc, 1 each 3 times daily., Disp: 100 each, Rfl: 5 metFORMIN XR (Glucophage-XR) 500 MG 24 hr tablet, TAKE 1 TABLET BY MOUTH TWICE DAILY WITH MEALS, Disp: 56 tablet, Rfl: 5 methotrexate 2.5 MG tablet, , Disp: , Rfl: midodrine (Proamatine) 2.5 MG tablet, @@ TAKE 1 TABLET BY MOUTH TWICE DAILY, Disp: 56 tablet, Rfl: 11 Misc. Devices (Pulse Oximeter For Finger) misc, 1 each 2 times daily., Disp: 1 each, Rfl: 0 montelukast (Singulair) 10 MG tablet, Take 1 tablet (10 mg) by mouth at bedtime., Disp: 28 tablet, Rfl: 11 naloxone (Narcan) 4 mg/0.1 mL nasal spray, Administer 1 spray (4 mg) into affected nostril(s) if needed for opioid reversal. May repeat every 2-3 minutes if needed, alternating nostrils, until medical assistance becomes available., Disp: 2 each, Rfl: 3 predniSONE (Deltasone) 20 MG tablet, Take 1 tablet (20 mg) by mouth 2 times daily for 5 days., Disp: 10 tablet, Rfl: 0 QUEtiapine (SEROquel) 100 MG tablet, Take 1 tablet by oral route daily, Disp: , Rfl: rosuvastatin (Crestor) 40 MG tablet, @@ TAKE 1 TABLET BY MOUTH AT BEDTIME., Disp: 28 tablet, Rfl: 11 sodium chloride ([place] Nasal [place]) 0.65 % nasal spray, 1-2 sprays on each nostril every 2-3 hours as needed for nasal congestion, Disp: 30 mL, Rfl: 1 Spacer/Aero-Holding Chambers (OptiChamber Khushi) misc, 1 each every 4 (four) hours if needed (asthma)., Disp: 1 each, Rfl: 0 sulfaSALAzine (Azulfidine) 500 MG tablet, take 1 tablet by oral route 4 times every day, Disp: , Rfl: traMADol (Ultram) 50 MG tablet, TAKE 1 TABLET BY MOUTH EVERY 6 HOURS IF NEEDED FOR SEVERE PAIN FOR UP TO 7 DAYS, Disp: 28 tablet, Rfl: 0 Umeclidinium [place] (Incruse Ellipta) 62.5 MCG/ACT aerosol powder , Inhale 1 Act (62.5 mcg) Once per day., Disp: 30 Act, Rfl: 5 documented in this encounter Miscellaneous Notes * Addendum Note - Deandre Munroe DO - 09/17/2024 11:00 AM EDTAddended by: DEANDRE MUNROE on: 09/17/2024 02:36 PM Modules accepted: Orders documented in this encounter Plan of Treatment Scheduled Orders Name Type Priority Associated Diagnoses Orde r Schedule MR Brain w/o Contrast Imaging Routine Forgetfulness Expected: 09/17/2024, Expires: 09/17/2025 Scheduled Referrals Name Type Priority Associated Diagnoses Orde r Schedule Referral to Neurology Outpatient Referral Urgent Forgetfulness Expected: 09/17/2024 (Approximate), Expires: 09/17/2025 documented as of this encounter Procedures Procedure [...] complication, without long-term current use of insulin ([facility]/HCC) POCT GLUCOSE Routine 09/17/2024 11:55 AM EDT 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 complication, without long-term current use of insulin ([facility]) documented in this encounter Results * XR Chest 2 Views (09/17/2024 12:53 PM EDT) Anatomical Region Laterality Modality Chest Radiographic Dayana ging 09/17/2024 12:5 3 PM EDT Narrative 09/17/2024 1:31 PM EDT ?[facility] ?[address] ?[place] [address] ?XRay Report ? Signed ? Patient: Aspen Farah ?MR#: [id number] ?? 4 ? : 1950 ?Acct:[id number] ? Age/Sex: 74 / F ?ADM Date: 09/17/24 ? Loc: [facility] ? Attending Dr: Deandre Munroe DO ? Ordering Physician: Deandre Munroe DO ?? Date of Service: 09/17/24 ?? Procedure(s): XR chest 2V ?? Accession Number(s): [id number] ? cc: Deandre Munroe DO ? EXAMINATION: ?? XR CHEST [...] DD/ 1253 ? TD/TT: 09/17/24 1300 ? Furniture Designer: ? Procedure Note Donotmaryinterpreter, Image - 09/17/[address] [address] XRay Report Signed Patient: Aspen FarahMR#: [id number] 4 : 9Acct:[id number] Age/Sex: 74 / FADM Date: 09/17/24 [facility]: Deandre Munroe DO Ordering Physician: Deandre Munroe DO Date of Service: 09/17/24 Procedure(s): XR chest 2V Accession Number(s): [id number] cc: Deandre Munroe DO EXAMINATION: XR CHEST CLINICAL INFORMATION: [...] signed by Chris Jackson MD in OV> 04/16/25 1327 DD/ 1253 TD/TT: 09/17/24 1300 Furniture Designer: Deandre Munroe DO IMG XR PROCEDURES Final Resu lt * POCT Rapid Influenza B SANCHES ID NOW (09/17/2024 12:38 PM EDT) Influenza B Negative Negative, Indeterminate [facility] QC Media Lot # [id number] [facility] Lot# Expiration Date [facility] Swab 09/17/2024 12:3 8 PM EDT Deandre Munroe DO POINT OF CARE TEST ENTER/GUME T ORDERABLES Final Result Performing Organization Address [facility] [address]/[facility] Co de Phone Number [facility] [address] [place] [phone] * POCT Rapid Influenza A SANCHES ID NOW (09/17/2024 12:38 PM EDT) [facility] Signature Influenza A Negative Negative, Indeterminate [facility] QC Media Lot # [id number] [facility] Lot# Expiration Date [facility] Swab 09/17/2024 12:3 8 PM EDT Deandre Munroe DO POINT OF CARE TEST ENTER/GUME T ORDERABLES Final Result Performing Organization Address [facility] [address]/ZIP Co de Phone Number [facility] [address] [place] [phone] * POCT Rapid Covid-19 BinaxNOW (09/17/2024 12:30 PM EDT) Rapid COVID Ag Negative QC Media Lot # [id number] Lot# Expiration Date [id number] Swab 09/17/2024 12:3 0 PM EDT Deandre Ludwig DO POINT OF CARE TEST ENTER/GUME T ORDERABLES Final Result * POCT HGB A1C (09/17/2024 11:56 AM EDT) Hemoglobin A1C 6.0 4.0 - 6.0 % QC Media Lot # [id number] Lot# Expiration Date Blood 09/17/2024 11:5 6 AM EDT Deandre Ludwig DO POINT OF CARE TEST ENTER/GUME T ORDERABLES Final Result * POCT Glucose (09/17/2024 11:55 AM EDT) Glucose Blood, POC 78 60 - 200 mg/dL QC Media Lot # [id number] Lot# Expiration Date Blood Capillary blood specimen / Unknown 09/17/2024 11:55 AM EDT Deandre Munroe DO POINT OF CARE TEST ENTER/GUME T ORDERABLES Final Result documented in this encounter Visit Diagnoses Diagnosis 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 complication, without long-term current use of insulin (CMS/HCC)- Primary Mixed hyperlipidemia Fatty liver Other chronic nonalcoholic liver disease Generalized anxiety disorder Infrarenal abdominal aortic aneurysm (AAA) without rupture (CMS/HCC) Chronic obstructive pulmonary disease, unspecified COPD type (CMS/HCC) Rheumatoid arthritis, involving unspecified site, unspecified whether rheumatoid factor present (CMS/HCC) Osteoporosis without current pathological fracture, unspecified osteoporosis type Chronic pain of both shoulders Borderline abnormal TFTs Heartburn Forgetfulness Other general symptoms Acute URI Acute upper respiratory infections of unspecified site Cough, unspecified type Healthcare maintenance documented in this encounter Additional Health Concerns Assessment Noted Time PHQ-9 Depression Total Score: 5 01/22/20 24 9:55 AM EDT documented as of this encounter Care Teams Coater Carbon Paper Relationship Specialty Start Date End Date Deandre Munroe DO [address] [place] [phone] PCP - General Family Medicine 07/28/14 documented as of this encounter
--- OUTSIDE RECORDS SUMMARY | 2024-09-17 15:16 | XMS_ITS | Encounter Summary ---
Author Organization [employer] Address [address] [facility] [address] [place] [address] Care Team Providers Care Employment Clerk Name Role Phone Teresita Munroe DO Primary Care Provider Encounter Details Date Type Department Care Team (Latest Contact Info) Description 12/22/2021 Abstract [facility] CONVERSIONS Dental, Provider, DDS [...] on filedocumented in this encounter Care Teams Employment Clerk Relationship Specialty Start Date End Date Teresita Munroe DO [address] [place] [address] PCP - General Family Medicine 07/28/14 documented as of this encounter
--- OUTSIDE RECORDS SUMMARY | 2024-09-17 15:16 | XMS_ITS | Encounter Summary ---
Author Organization [employer] Address [address] [facility] [address]t [place] [address] Care Team Providers Care Linux Systems Administrator Name Role Phone Teresita Munroe DO Primary Care Provider [phone] Reason for Visit * Reason Comments Med Refill Encounter Details Date Type Department Care Team ([facility] st Contact Info) Description 07/02/2023 Refill [facility] MEDICINE [address] [place] [address] Teresita Munroe DO [address] [place] [address] Chronic obstructive pulmonary disease, unspecified COPD type [...] (CMS/HCC) documented in this encounter Care Teams Linux Systems Administrator Relationship Specialty Start Date End Date Teresita Munroe DO [address] [place] [address] PCP - General Family Medicine 07/28/14 documented as of this encounter
--- OUTSIDE RECORDS SUMMARY | 2024-09-17 15:16 | XMS_ITS | Encounter Summary ---
Author Organization [employer] Address [address] [facility] [address] [place] [address] Care Team Providers Care Bell Person Name Role Phone Teresita Munroe DO Primary Care Provider Encounter Details Date Type Department Care Team (Latest Contact Info) Description 2019 Abstract [facility] CONVERSIONS Dental, Provider, DDS Social History Tobacco [...] on filedocumented in this encounter Care Teams Bell Person Relationship Specialty Start Date End Date Teresita Munroe DO [address] [place] [address] PCP - General Family Medicine 07/28/14 documented as of this encounter
== END 2024-09-17 12:53 | disposition home or self-care (01) ==
LOC: HO.HHCX 12:52
PROVIDERS: Visit Provider Family Medicine
DX: J06.9 Acute upper respiratory infection, unspecified (principal)
CPT/HCPCS: 71046

== ENCOUNTER → 2024-09-17 12:53 | Outpatient (BNV) | payer OTHER, SELFPAY | PROVIDERS: Visit Provider Radiology Diagnostic Radiology | DX: R05.9 Cough, unspecified (principal) | CPT/HCPCS: 71046 ==

== ENCOUNTER → 2024-09-29 09:52 | Outpatient (BNV) | payer OTHER, SELFPAY | PROVIDERS: PCP Family Medicine; Visit Provider Radiology Diagnostic Radiology | DX: R41.3 Other amnesia (principal) | CPT/HCPCS: 70551 ==

== ENCOUNTER 2024-09-29 10:01 | Outpatient (REF) | payer OTHER, SELFPAY ==
--- NOTE | ~2024-09-29 | MR_ITS ---
EXAMINATION: MR BRAIN WITHOUT CONTRAST CLINICAL INFORMATION: Memory loss. Right upper extremity pain. COMPARISON: April 22, 2018. TECHNIQUE: MRI of the brain was obtained using routine sequences without contrast. FINDINGS: There is a round, 2.6 cm isointense T1 heterogeneous mixed predominantly hyperintense T2 FLAIR restricted diffusion mass centered in the right maxillary sinus resulting in bowing of the medial wall into the right nasal cavity. No acute intracranial hemorrhage, mass effect, midline shift, hydrocephalus or herniation. No restricted diffusion within the brain parenchyma. Flow-void signal within the main cerebral vessels is normal. Prominence of the extra-axial CSF spaces cerebral sulci and ventricles likely central volume loss. Mild patchy hyperintense T2 FLAIR signal within the deep periventricular white matter of the centrum semiovale and luz radiata more conspicuous adjacent to the body of the lateral ventricles. 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 Probable old lacunar infarcts, basal ganglia. Sellar/suprasellar region is normal. Craniocervical junction is intact. 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 Recommend direct inspection since underlying neoplasm cannot be excluded. No acute brain abnormality. White matter disease and old lacunar infarcts, likely related to small vessel occlusive disease. Electronically signed by: Sky Holland MD 10/01/2024 11:52 AM EDT
--- OUTSIDE RECORDS SUMMARY | 2024-09-29 11:32 | XMS_ITS | Encounter Summary ---
Author Organization [employer] Address [address] [facility] 7t h Floor [place] [id number] Care Team Providers Care Hands Parter Name Role Phone Teresita Munroe DO Primary Care Provider [phone] Reason for Visit * Reason Onset Date Comments Med Refill 09/25/2024 Encounter Details Date Type Department Care Team ([facility] st Contact Info) Description 09/25/2024 Telephone [facility] [address] [place] [address] Teresita Munroe DO [address] [place] [address] Med Refill Social History Tobacco Use Types Packs/Day Years [...] encounter Miscellaneous Notes * Telephone Encounter - Kelly Amaro - 09/25/2024 12:20 PM EDT TC from [place] with [facility] requesting medication PA Medications needing PA : benzonatate (Tessalon Perles) 100 MG capsule Pharmacy : [facility] [address] [place] [address] Nurse Osmany left a Rogers for PA with information regarding the medication Rogers : [id number] documented in this encounter Plan of Treatment Not on file documented as of this encounter Visit Diagnoses Not on filedocumented in this encounter Additional Health Concerns Assessment Noted Time PHQ-9 Depression Total Score: 5 01/22/20 9:55 AM EDT documented as of this encounter Care Teams Hands Parter Relationship Specialty Start Date End Date Teresita Munroe DO [address] [place] [phone] PCP - General Family Medicine 07/28/14 documented as of this encounter
--- OUTSIDE RECORDS SUMMARY | 2024-09-29 11:32 | XMS_ITS | Clinical Summary ---
Author Organization [employer] Address [address] [place] [address] 7t [place] [address] Care Team Providers Care Charging Operator Name Role Phone LorenTeresita blanco Primary [...] oral route twice daily Active sodium chloride (Carver Nasal Roark) 0.65 % nasal sprayIndicatio ns:COVID-19 1-2 sprays [...] 2 diabetes mellitus without complication, unspecified whether snf insulin use (CMS/HCC) TAKE 1 TABLET BY [...] shortness of breath. 180 mL 3 07/15/19 Active acetaminophen (Tylenol) 500 MG tablet Take 2 tablets (1,000 mg) by mouth every 6 (six) hours if needed for moderate pain or fever for up to 25 doses. 30 tablet 07/15/19 25 Active Umeclidinium Dunnell (Incruse Ellipta) 62.5 MCG/ACT aerosol powderIndicati ons:Chronic obstructive pulmonary disease, unspecified COPD type (CMS/HCC) Inhale 1 Act (62.5 mcg) Once per day. 30 Act 07/15/19 25 Active Alcohol Swabs (Alcohol Prep) padsIndication s: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 complication, without long-term current use of insulin (CMS/[facility]) 1 each 3 times daily. 100 each 07/15/19 25 Active Misc. Devices (Pulse Oximeter For Finger) misc 1 each 2 times daily. 1 each 07/15/19 25 Active Lancets 33G misc 1 each 3 times daily. 100 each 07/15/19 25 Active FREESTYLE LITE test strip Use as instructed 100 each 07/15/19 25 Active cetirizine (ZyrTEC) 10 MG tablet Take 1 tablet (10 mg) by mouth Once per day. 30 tablet 09/18/19 25 2025 Active montelukast (Singulair) 10 MG tablet Take 1 tablet (10 mg) by mouth at bedtime. 28 tablet 11 09/18/19 25 Active traMADol (Ultram) 50 MG tabletIndicati ons:Chronic [...] bedtime (eye itching). 10 mL 3 09/18/19 25 Active mometasone (Nasonex) 50 MCG/ACT nasal spray SPRAY 2 SPRAYS INTO EACH NOSTRIL EVERY DAY. 17 g 09/24/19 25 Active fluticasone (Flonase Allergy Relief) 50 MCG/ACT nasal spray spray 2 spray by intranasal route every day in each nostril as needed 11/26/19 19 2024 Discontinued(R eorder (will not trigger notification to Pharmacy)) montelukast (Singulair) 10 MG tablet TAKE 1 TABLET BY MOUTH IN THE EVENING. 28 tablet 11 11/29/19 24 2024 Discontinued(R eorder (will not trigger notification to Pharmacy)) fexofenadine (Ramya) 180 MG tablet @@TAKE 1 TABLET BY MOUTH DAILY IN THE MORNING. 28 tablet 11/29/19 24 2024 Discontinued traMADol (Ultram) 50 MG tabletIndicati ons:Chronic pain of both shoulders TAKE 1 TABLET BY MOUTH EVERY 6 HOURS IF NEEDED FOR SEVERE PAIN FOR UP TO 7 DAYS 28 tablet 08/30/19 25 2024 Discontinued(R eorder (will not trigger notification to Pharmacy)) predniSONE (Deltasone) 20 MG tablet Take 1 tablet (20 mg) by mouth 2 times daily for 5 days. 10 tablet 09/18/19 25 2024 Discontinued(R eorder (will not trigger notification to Pharmacy)) benzonatate (Tessalon Perles) 100 MG capsule Take 1 capsule (100 mg) by mouth if needed in the morning, at noon, and at bedtime for cough for up to 10 days. Do not crush or chew. 30 capsule 09/18/19 25 2024 Discontinued(R eorder (will not trigger notification to Pharmacy)) cetirizine (ZyrTEC) 10 MG tablet Take 1 tablet (10 mg) by mouth Once per day. 30 tablet 09/18/192024 Discontinued(R eorder (will not trigger notification to Pharmacy)) fluticasone (Flonase Allergy Relief) 50 MCG/ACT nasal spray Administer 2 sprays into each nostril Once per day. Shake gently. Before first use, prime pump. After use, clean tip and replace cap. 16 g 09/18/19 25 2024 Discontinued(R eorder (will not trigger notification to Pharmacy)) benzonatate (Tessalon Perles) 100 MG capsule Take 1 capsule (100 mg) by mouth if needed in the morning, at noon, and at bedtime for cough for up to 10 days. Do not crush or chew. 30 capsule 09/18/19 25 2024 fluticasone (Flonase Allergy Relief) 50 MCG/ACT nasal spray Administer 2 sprays into each nostril Once per day. Shake gently. Before first use, prime pump. After use, clean tip and replace cap. 16 g 09/18/192024 Discontinued predniSONE (Deltasone) 20 MG tablet Take 1 tablet (20 mg) by mouth 2 times daily for 5 days. 10 tablet 09/18/19 25 2024 Active Problems Problem Noted Date [...] Encounters Date Type Department Care Team Description 09/25/2024 Telephone [facility] [address] [place] [address] Teresita Munroe, DO Med Refill 09/18/2024 Refill [facility] [address] [place] [address] Teresita Munroe DO 09/17/2024 11:00 AM EDT Office Visit [facility] [address] [place] [phone] Teresita Murnoe DO 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 complication, [...] Healthcare maintenance 09/17/2024 Travel 09/08/2024 Patient Outreach [address] [address] Teresita Munroe DO Pre-visit Planning (SDOH screening negative and tobacco screening negative) 08/28/2024 Refill [facility] [address] [place] [address] Soila Scott MD Chronic pain of both shoulders 07/23/[address] [address] Teresita Munroe DO Medication Question 07/22/[address] [address] Teresita Munroe DO Recall Letter (Recall Letter sent 07/22/24.) 07/15/2024 10:20 AM EST Office Visit [facility] [address] [place] [phone] Chris Emanuel MD 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 complication, without long-term current use of insulin ([facility]) (Primary Dx); Influenza B; COVID-19; Chronic obstructive pulmonary disease, unspecified COPD type (CMS/HCC); Rheumatoid arthritis, involving unspecified site, unspecified whether rheumatoid factor present (CMS/HCC) 07/08/2024 Refill [facility] [address] [place] [facility] [place] [address] Teresita Munroe DO Chronic pain of both [...] Zoster Vaccines (3 of 3) 10/17/2021 08/22/2021, 11/07/2014 Dental Oral Exam 12/11/2022 06/12/2022 COVID-19 Vaccine [...] complication, without long-term current use of insulin ([facility]) POCT GLUCOSE Routine 09/17/2024 11:55 AM EDT 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 complication, without long-term current use of insulin ([facility]/HCC) BI MAMMOGRAM SCREENING TOMOSYNTHESIS BILATERAL Routine 08/01/2024 [...] PM EDT Narrative 09/17/2024 1:31 PM EDT ?[facility] ?[address] ?[place] [address] ?XRay Report ? Signed ? Patient: Gagan,Aspen ?MR#: [id number] ?? 4 ? : 1950 ?Acct:[id number] ? Age/Sex: 74 / F ?ADM Date: 09/17/24 ? Loc: HO.HHCX ? Attending Dr: Teresita Munroe DO ? Ordering Physician: Teresita Munroe DO ?? Date of Service: 09/17/24 ?? Procedure(s): XR chest 2V ?? Accession Number(s): [id number] ? cc: Teresita Munroe DO ? EXAMINATION: [...] DD/ 1253 ? TD/TT: 09/17/24 1300 ? Supervisor [employer]: ? Procedure Note Kait, Image - 09/17/2024 [facility] [address] [place] [address] XRay Report Signed Patient: Aspen FarahMR#: [id number] 4 : 9Acct:[id number] Age/Sex: 74 / FADM Date: 09/17/24 Loc: HO.HHCX Attending Dr: Teresita Munroe DO Ordering Physician: Teresita Munroe DO Date of Service: 09/17/24 Procedure(s): XR chest 2V Accession Number(s): [id number] cc: Teresita Munroe DO EXAMINATION: XR CHEST [...] 09/17/24 1327 DD/ 1253 TD/TT: 09/17/24 1300 Supervisor [employer]: Teresita Munroe DO IMG XR PROCEDURES Final Resu lt * POCT Rapid Influenza B SANCHES ID NOW (09/17/2024 12:38 PM EDT) Only the most recent of2 resultswithin the time period is included. Influenza B Negative Negative, Indeterminate [facility] QC Media Lot # [id number] [facility] Lot# Expiration Date [facility] Swab 09/17/2024 12:3 8 PM EDT Teresita Munroe DO POINT OF CARE TEST ENTER/GUME T ORDERABLES Final Result Performing Organization Address [facility] Co de Phone Number [facility] [address] [place] [phone] * POCT Rapid Influenza A SANCHES ID NOW (09/17/2024 12:38 PM EDT) Only the most recent of2 resultswithin the time period is included. Influenza A Negative Negative, Indeterminate [facility] QC Media Lot # [id number] [facility] Lot# Expiration Date [facility] Swab 09/17/2024 12:3 8 PM EDT Teresita Munroe DO POINT OF CARE TEST ENTER/GUME T ORDERABLES Final Result Performing Organization Address [facility] de Phone Number [facility] [address] [place] [phone] * POCT Rapid Covid-19 BinaxNOW (09/17/2024 12:30 PM EDT) Only the most recent of2 resultswithin the time period is included. Rapid COVID Ag Negative QC Media Lot # [id number] Lot# Expiration Date ,026 Swab 09/17/2024 12:3 0 PM EDT Teresita Pimentelfrancis DO POINT OF CARE TEST ENTER/GUME T [...] Media Lot # [id number] Lot# Expiration Date ,025 Blood Capillary blood specimen / Unknown 09/17/2024 11:55 AM EDT Teresita Munroe DO POINT OF CARE TEST ENTER/GUME T ORDERABLES Final Result * BI Mammogram Screening Tomosynthesis Bilateral (08/01/2024 8:15 AM EST) Anatomical Region Laterality Modality Breast Bilateral Mammography 08/01/2024 8:15 AM EST Narrative 08/04/2024 3:31 PM EST ? [facility] ? [address] ?[place] [address] ? Mammography Report ? Signed ? Patient: Gagan,Aspen ?MR#: [id number] ?? 4 ? : 1950 ?Acct:[id number] ? Age/Sex: 74 / F ?ADM Date: 02/28/25 ? Loc: HO.MAMMO ? Attending Inocencio Munroe DO ? Ordering Physician: Teresita Munroe DO ?Results: 1N ?? egative ? Date of Service: 08/01/24 ?Follow Up: 1 Year From Orig ?? inal Mammogram ? Procedure(s): MM tomosynthesis screening BI ?? Accession Number(s): [id number] ? cc: Teresita Munroe DO ? EXAMINATION: [...] DO in OV> ? 08/04/24 1528 ? DD/DT: 08/01/ 0815 ? TD/TT: 08/01/ 0826 ? Supervisor [employer]: ? Procedure Note Donotuseinterpreter, Image - 08/04/2024 [facility] [address] [place], [place] [address] Mammography Report Signed Patient: Shirin Farah#: [id number] 4 : 9Acct:[id number] Age/Sex: 74 / FADM Date: 08/01/24 Loc: HO.MAMMO Attending Dr: Teresita Munroe DO Ordering Physician: Teresita Munroeults: 1N egative Date of Service: 08/01/24Follow Up: 1 Year From Orig inal Mammogram Procedure(s): MM tomosynthesis screening BI Accession Number(s): [id number] cc: Teresita Munroe DO EXAMINATION: MM SCREENING [...] by: Brittany Cadet DO 08/04/2024 03:28 PM EST Dictated By: Brittany Cadet DO Signed By: <Electronically signed by Brittany Cadet DO in OV> 08/04/24 1528 DD/ 0815 TD/TT: 08/01/24 0826 Supervisor [employer]: Teresita Munroe DO IMG BI PROCEDURES Final Resu lt * (ABNORMAL) PTH, Intact Without Calcium (07/07/2024 1:33 PM EST) Parathyroid Hormone, Intact 80.3(H) 8.7 - 77.1 pg/mL [facility] 07/07/2024 1:33 PM EST 07/07/2024 1:33 PM EST Generic External Data Provider LAB BLOOD ORDERAB LES Final Result Performing Organization Address [facility] Co de Phone Number [facility] [address] [place] [phone] * (ABNORMAL) Vitamin D, 25-Hydroxy, Total, Immunoassay (07/07/2024 1:29 PM EST) Vitamin D 25-OH Total 12.7(L) >30 ng/mL [facility] Comment:Health Based Referen ce Values*< 20 ng/mL [id number] ng/mL Insufficient> 30 ng/mL Sufficient*Santos MARCELINO. N [...] ORDERAB LES Final Result Performing Organization Address [facility] Co de Phone Number [facility] [address] [place] [phone] * Albumin (07/07/2024 1:29 PM EST) Pathologist [facility] Albumin Level 4.0 3.5 - 5.0 g/dL [facility] 07/07/2024 1:29 PM EST 07/07/2024 1:33 PM EST us Generic External Data Provider LAB BLOOD ORDERAB LES Final Result Performing Organization Address [facility]/ZIP Co de Phone Number [facility] [address] [place] [phone] * (ABNORMAL) Basic Metabolic Panel (07/07/2024 1:29 PM EST) Sodium 141 135 - 145 mmol/L [facility] Potassium 4.0 3.3 - 5.1 mmol/L [facility] Chloride 108 96 - 108 mmol/L [facility] Carbon Dioxide 27 22 - 29 mmol/L [facility] Anion Gap 10(L) 12 - 20 [facility] Urea Nitrogen (BUN) 14 9 - 16 mg/dL [facility] Creatinine, Serum 0.72 0.5 - 1.4 mg/dL [facility] Estimated Glomerular Filt Rate >60 [facility] Comment:Chronic Kidney Disea se: Estimated GFR < 60 mL/min/1.62b7Fquavc Kidney Disease: Estimated GFR < 15 mL/min/1.73m2 Glucose 98 60 - 115 mg/dL [facility] Calcium 9.5 8.4 - 10.2 mg/dL [facility] 07/07/2024 1:29 PM EST 07/07/2024 1:33 PM EST us Generic External Data Provider LAB BLOOD ORDERAB LES Final Result Performing Organization Address [facility]/ZIP Co de Phone Number [facility] [address] [place] [phone] [phone] * Hepatitis Panel, General (04/09/2024 9:31 AM EST) Hepatitis A IgM Nonreactive Nonreactive [facility] Comment:IgM antibodies to GUERRA V not detected; does not exclude earlyacute or recovered HAV infection. ~Hepatitis B Surface Antibody REACTIVE Nonreactive [facility] Comment:REACTIVE: > 11.99 mI U/mL Hepatitis B Core Antibody Nonreactive Nonreactive [facility] Hepatitis C Antibody Nonreactive Nonreactive [facility] Comment:Antibodies to HCV no t detected; does not exclude early acuteHCV infection. Hepatitis B Surface Ag Negative Negative [facility] 04/09/2024 9:31 AM EST 04/09/2024 9:31 AM EST us Generic External Data Provider LAB BLOOD ORDERAB LES Final Result [facility] [address] [place] [phone] * Lipid Panel, Standard (04/09/2024 9:31 AM EST) Triglycerides 88 <150 mg/dL [facility] Comment:Desirable Triglyceri de: less than 150 mg/dLBorderline High Triglyceride 150-199 mg/dLHigh Triglyceride: 200-499 mg/dLVery High Triglyceride: greater than or equal to 5OO mg/dL Cholesterol 97 <200 mg/dL [facility] Comment:Desirable Cholestero l: less than 200 mg/dLBorderline High Cholesterol: 200-239 mg/dLHigh Cholesterol: greater than 239 mg/dL LDL Cholesterol Calculated 32 <100 mg/dL [facility] Comment:Desirable LDL: less than 100 mg/dLNear Optimal/Above Optimal LDL: 110- 129 mg/dLBorderline High LDL: 130-159 mg/dLHigh LDL: 160-189 mg/dLVery High LDL: greater than or equal to 190 mg/dL HDL Cholesterol 48 >40 mg/dL [facility] Comment:Desirable HDL: great er than 40 mg/dL Note: This HDL assay may give artificially low results in patients with liver disease. Blood Venous blood specimen / Unknown 04/09/2024 9:31 AM EST 04/09/2024 9:31 AM EST us Teresita Munroe DO LAB BLOOD ORDERABLES Final R esult Performing Organization Address City/[facility] de Phone Number [facility] [address] [place] [phone] * Albumin, Random Urine W/Creatinine (04/09/2024 9:28 AM EST) Creatinine, Urine 128.14 mg/dL [facility] Microalbumin Urine 12.0 mg/L [facility] Microalbum Creatinine Ratio Ur 9.3 <30 ug/mg cr [facility] Comment:Albumin/Creatinine R atio Reference Ranges: Normal: < 30 ug/mg creatinine Microalbuminuria: 30 - 300 ug/mg creatinineClinical Albuminuria: > 300 ug/mg creatinine Urine (Urine, Random) 04/09/2024 9:28 AM EST 04/09/2024 9:40 AM EST Teresita Munroe DO LAB URINE ORDERABLES Final R esult Performing Organization Address [facility] Co de Phone Number [facility] [address] [place] [phone] * Hm Colonoscopy (11/10/2020 10:20 AM EDT) Historical Provider HEALTH MAINTENANCE Final Result from Last 3 Months or Most Recently Relevant to Health Maintenance Insurance [facility] [employer] OPT[employer] (HMO D-SNP) [place] [id number] DENTAL - [facility] Care Teams Charging Operator Relationship Specialty Start Date End Date Teresita Munroe DO [address] [place] [phone] PCP - General Family Medicine 07/28/14
--- OUTSIDE RECORDS SUMMARY | 2024-09-29 11:32 | XMS_ITS | Encounter Summary ---
Author Organization [employer] Address [address] [facility] 7t [place] [address] Care Team Providers Care Senior Maintenance Mechanic Name Role Phone Teresita Munroe DO Primary Care Provider Encounter Details Date Type Department Care Team ([facility] st Contact Info) Description 08/03/2022 Abstract [facility] AD[facility] [address] [place] [address] Bhanu Barakat DDS [address] [place] [address] Social History Tobacco Use Types Packs/Day Years [...] on filedocumented in this encounter Care Teams Senior Maintenance Mechanic Relationship Specialty Start Date End Date Teresita Munroe DO [address] [place] [address] PCP - General Family Medicine 07/28/14 documented as of this encounter
--- OUTSIDE RECORDS SUMMARY | 2024-09-29 11:32 | XMS_ITS | Encounter Summary ---
Author Organization [employer] Address [address] [facility] 7t [place] [address] Care Team Providers Care Porter Baggage Name Role Phone Teresita Munroe DO Primary Care Provider [phone] Encounter Details Date Type Department Care Team (Late st Contact Info) Description 06/15/2022 Abstract [facility] ADULT DENTAL [address] [place] [address] Jelena Morgan DDS [address] [place] [address] Social History Tobacco Use Types Packs/Day Years [...] on filedocumented in this encounter Care Teams Porter Baggage Relationship Specialty Start Date End Date Teresita Munroe DO [address] [place] [address] PCP - General Family Medicine 07/28/14 documented as of this encounter
--- OUTSIDE RECORDS SUMMARY | 2024-09-29 11:32 | XMS_ITS | Encounter Summary ---
Author Organization [employer] Address [address] [facility] 7t [place] [address] Care Team Providers Care Supervisor Special Education Name Role Phone Kamille Munroenifer Primary Care Provider [phone] Encounter Details Date Type Department Care Team ([facility] st Contact Info) Description 09/14/2023 Orders Only [facility] MED[facility] [address] [place] [address] ProviderFlor MD Social History Tobacco Use Types [...] on filedocumented in this encounter Care Teams Supervisor Special Education Relationship Specialty Start Date End Date Teresita Munroe DO [address] [place] [address] PCP - General Family Medicine 07/28/14 documented as of this encounter
--- OUTSIDE RECORDS SUMMARY | 2024-09-29 11:33 | XMS_ITS | Encounter Summary ---
Author Organization [employer] Address 75 [facility] 7t [place] [address] Care Team Providers Care Sedimentationist Name Role Phone Teresita Munroe DO Primary Care Provider [phone] Reason for Visit * Reason Comments Med Refill Encounter Details Date Type Department Care Team ([facility] st Contact Info) Description 07/02/2023 Refill [facility] [address] [place] [address] Teresita Munroe DO [address] [place] [address] Chronic obstructive pulmonary disease, unspecified COPD type [...] (CMS/HCC) documented in this encounter Care Teams Sedimentationist Relationship Specialty Start Date End Date Teresita Munroe DO [address] [place] [address] PCP - General Family Medicine 07/28/14 documented as of this encounter
--- OUTSIDE RECORDS SUMMARY | 2024-09-29 11:33 | XMS_ITS | Encounter Summary ---
Author Organization [employer] Address [address] [facility] 7t [place] [address] Care Team Providers Care Tripe Cooker Name Role Phone Teresita Munroe DO Primary Care Provider Encounter Details Date Type Department Care Team (Latest Contact Info) Description 2019 Abstract [facility] CONVERSIONS Dental, Provider, DDS Social History [...] on filedocumented in this encounter Care Teams Tripe Cooker Relationship Specialty Start Date End Date Teresita Munroe DO [address] [place] [address] PCP - General Family Medicine 07/28/14 documented as of this encounter
--- OUTSIDE RECORDS SUMMARY | 2024-09-29 11:33 | XMS_ITS | Encounter Summary ---
Author Organization [employer] Address 75 [facility] [address]t [place] [address] Care Team Providers Care Title Examiner Name Role Phone Teresita Munroe DO Primary Care Provider [phone] Reason for Visit * Reason Comments Med Refill Encounter Details Date Type Department Care Team ([facility] st Contact Info) Description 01/03/2024 Refill [facility] MED & PEDS [address] [place], [place] [phone] Teresita Munroe DO [address] [facility] [place] [address] 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 complication, unspecified whether fci insulin use (CMS/HCC); Osteopenia, unspecified location Social [...] 2 diabetes mellitus without complication, unspecified whether universal grinder set up operator insulin use (CMS/[facility]) Osteopenia, unspecified location documented in this encounter Care Teams Title Examiner Relationship Specialty Start Date End Date Teresita Munroe DO [address] [place] [id number] PCP - General Family Medicine 07/28/14 documented as of this encounter
--- OUTSIDE RECORDS SUMMARY | 2024-09-29 11:33 | XMS_ITS | Encounter Summary ---
Author Organization [employer] Address 75 [facility] 7t [place] [address] Care Team Providers Care Plant Supervisor Name Role Phone Teresita Munroe DO Primary Care Provider [phone] Encounter Details Date Type Department Care Team (Latest Contact Info) Description 12/22/[address] [facility] CONVERSIONS Dental, Provider, DDS Social History [...] on filedocumented in this encounter Care Teams Plant Supervisor Relationship Specialty Start Date End Date Teresita Munroe DO [address] [place] [address] PCP - General Family Medicine 07/28/14 documented as of this encounter
--- OUTSIDE RECORDS SUMMARY | 2024-09-29 11:33 | XMS_ITS | Encounter Summary ---
Author Organization [employer] Address 75 [facility] 7t [place] [address] Care Team Providers Care Food Service Representative Name Role Phone Teresita Munroe DO Primary Care Provider [phone] Reason for Visit * Reason Onset Date Comments Med Refill 05/11/2023 Encounter Details Date Type Department Care Team (Late st Contact Info) Description 05/11/2023 Refill [facility] MEDICINE [address] [place] [address] Teresita Munroe DO [address] [place] [address] Chronic pain of both shoulders (Primary Dx) [...] traMADol (Ultram) 50 MG tablet [facility] [address] [place] [address] documented in this encounter Plan of Treatment Not on file documented as of this encounter Visit Diagnoses Diagnosis Chronic pain of both shoulders- Primary documented in this encounter Care Teams Food Service Representative Relationship Specialty Start Date End Date Teresita Munroe DO [address] [place] [address] PCP - General Family Medicine 07/28/14 documented as of this encounter
== END 2024-09-29 10:02 | disposition home or self-care (01) ==
LOC: HO.MRI 10:01
PROVIDERS: PCP Family Medicine; Visit Provider Family Medicine
DX: R06.89 Other abnormalities of breathing (principal)
CPT/HCPCS: 70551

== ENCOUNTER 2024-10-09 11:22 | Outpatient (AMB) | payer OTHER, SELFPAY ==
--- NOTE | 2024-10-09 11:24 | A.OFFVIS_ITS ---
Vital Signs 10/09/24 11:25 Height 5 ft 3 in Weight 151 lb 14.376 oz BMI 26.9 BP 120/64 Blood Pressure Location Lt brachial Position Sitting Pulse 88 Pulse Source Pulse Oximeter Intake Visit Reasons: Osteoporosis Intake Note: Patient present today for Osteoporosis office visit. Business Process Associate Required: Yes Business Process Associate Language: Alfalfa Dehydrator Operator Services: Business Process Associate Present Business Process Associate Name: Eileen [id number] Information Interpreted: non-clinical & clinical Accompanied by: GAGE DESIGNER Allergies lobster Allergy (Uncoded 10/09/24 11:30) Nausea and Vomiting Medication List - Last Reconciled 10/09/24 by Marisela Ayon MD acetaminophen ER 650 mg PO TID albuterol sulfate 90 mcg/actuation (Ventolin HFA) 2 puffs inhalation Q4-6H PRN aspirin 81 mg PO DAILY buspirone 1 tab PO BID calcium carbonate (Calcium 600) 600 mg PO DAILY clopidogrel 75 mg PO DAILY diclofenac sodium 1% 1 ea topical QID docusate sodium 100 mg PO BID 14 days duloxetine 60 mg PO BID evolocumab (Repatha SureClick) 1 ea subcut Q14D evolocumab (Repatha SureClick) 140 mg subcut Q2W ezetimibe 10 mg PO DAILY fenofibrate 160 mg PO DAILY fexofenadine 180 mg PO DAILY fluticasone propion-salmeterol 500-50 mcg/dose 1 inh inhalation BID folic acid 1 mg PO DAILY gabapentin 300 mg PO DAILY ipratropium-albuterol 0.5 mg-3 mg(2.5 mg base)/3 mL mL inhalation lidocaine 5% 1 patch topical DAILY metformin ER 500 mg PO BID methotrexate sodium 7.5 mg (3 x 2.5 mg) PO QWEEK 90 days methylprednisolone (Medrol) 4 mg orally; Take 3 tablets for 10 days, then 2 tablets for 10 days then 1 tablet for 10 days then stop midodrine 1 tab PO BID montelukast 10 mg PO DAILY quetiapine 1 tab PO BEDTIME rosuvastatin 40 mg PO DAILY sodium chloride 0.65% (Deep Sea Nasal) 1 - 2 sprays intranasal Q2-3H PRN tramadol 1 tab PO BID PRN umeclidinium 62.5 mcg/actuation (Incruse Ellipta) 1 inh inhalation DAILY HPI Comments Details: 73-year-old female coming in today for follow up of osteoporosis. Here today with GAGE DESIGNER. Most recent bone density scan done in February 2024 showed T-score of -2.8 at the lumbar spine with increase of 2.9% in her bone density compared to 2020. T- score of-2.5 at the femoral neck and T-score of -2.3 at the total hip with decrease of 3/0.7% bone density at the hip. Bone density from October 2020 showed T-score of-3 at the lumbar spine with decrease of 1.6% in bone density compared to 2013. T-score of -2 at the femoral neck and-2 in the total hip with increase of 11.6% in BMD compared to 2013. Post menopausal osteoporosis: Diagnosed in 2013 Was seeing an endo at [facility] 6-7 years ago , Fosamax from [id number]. Fracture History: none Height loss: 5' 4 curerrenlty , no loss Back pain: none Pharmacotherapeutic hx: Fosamax from 7179-6190 Drug holiday from 2020 up until now Family history: mother had osteoporosis, no parent fractures hip Estrogen use: no HRT use Pregnancies: 4 alive births Menstrual hx: menopause 5o years, menarche 11-11 years , regular periods Secondary risk factors: Steroid use: has required many short courses of prednisone for RA and asthma. last course last week for an RA flare. Has had steroid injections twice 3 years ago. Also on fluticasone Hyperthyroidism: Neg Seizure medication use: None Chemo or Radiation use: Neg Heparin Use: Neg History of eating disorder: Negative snf immobilization: Negative History of kidney stones or disease: negative PI Use: has history of gastritis , used to take PPI before, no acid reflux now Chronic inflammatory lung disease: Negative Chronic inflammatory bowel disease: Negative Daily calcium intake: drinks 3 cups of milk daily, yogurt twice a day, cheese twice a day also takes 600 mg of calcium BID Vitamin D intake: 2000 units daily Exercise:walks sometimes no fixed schedule, not much, like groceries Smoking history:quit smoking 12 years ago Dental: Has regular dental cleaning, no issues Labs from 04/09/2024 showed normal kidney function with GFR greater than 60, calcium of 9.8 with albumin of 4.1, phosphorus normal at 3.3, magnesium normal at 2.3. Bone specific alkaline phosphatase 16.1, CTX 400. Vitamin-D low at 19.8. PTH mildly elevated at 80.8. 24 hour urine calcium levels on the lower side at 68 mg for 24 hours. 04/14/2024: Vitamin-D was increased from 2000 units daily in supplements to 2500 units daily.plus 800 units in calcium supplement daily. HOWEVER IT IS VERY UNCLEAR HOW MUCH SHE IS TAKING BECAUSE HER MEDICATIONS COME IN A BOX AND I HAD SENT THE VITAMIN-D TO [facility] BUT THEY ARE TELLING ME THE PHARMACIES [facility] I AM NOT REALLY SURE IF SHE WAS GETTING THE EXTRA VITAMIN-D OR NOT. Interval history Labs from 07/07/2024: Showed calcium of 9.5 with albumin of 4, normal kidney function, vitamin-D still low at 12.7, PTH at 80.3. We put her on vitamin-D 50 000 units weekly for 3 months and she completed the course in September 2024. no fractures or fall [place] [address] units for 3 months Jul to September 2024 Uptodate with dental cleaning , last done 6 months ago Drinking milk and eating more yogurt and cheese Calcium 600 mg daily Physical exam General: sitting comfortably in no acute distress HEENT: normocephalic/atraumatic, , moist oral mucosa Neck: supple, symmetrical, no thyromegaly , no dorsocervical or supraclavicular fat pads Cardiac: normal heart sounds Pulm: normal breath sounds B/L, no added breath sounds Abd: not distended, no tenderness Extremities: no edema, no signs of myxedema Neuro: AAO x3, Speech: normal, no facial droop, moving all 4 extremities Laboratory Tests 04/09/24 04/09/24 08:00 09:31 Sodium 143 Potassium 3.9 Creatinine 0.72 Estimated GFR > 60 Calcium 9.8 Phosphorus 3.3 Magnesium 2.3 Alk Phos Bone Specific 16.1 Total Protein 7.8 Total Protein (PEP) 7.2 Albumin 4.1 Albumin (PEP) 3.9 Ycboi-2-Gbxfcemci 0.2 Etxou-2-Mqtriqjzm 0.8 Liik-9-Oggvvuxe 0.4 Scye-8-Qbnfyvdd 0.5 Gamma Globulins 1.4 Collgn I C-Telopeptide 400 25-OH Vitamin D Total 19.8 L TSH 1.20 Free T4 0.72 Free T4 (Dialysis) 0.7 L Thyroxine (T4) 6.1 Total T3 113 Thyroglobulin 15.4 T4-Binding Globulin 29.1 PTH Intact 80.8 H Urine Total Volume 950 Ur 24 Hour Volume 950 Ur Creatinine mg/dL 73.97 Ur Creatinine 24 Hour 0.72 Ur Calcium 24 Hr 68 Calcium/Creat 24 Hr 97 Ur Free Cortisol 24 Hr 4.9 Laboratory Tests 02/22/23 04/05/23 11/02/23 10:56 09:36 08:26 Creatinine 0.77 Estimated GFR > 60 Calcium 9.8 Alkaline Phosphatase 94 Albumin 4.0 1,25 Dihydroxy Vit D 53 1,25 Dihydroxy Vit D2 <8 1,25 Dihydroxy Vit D3 53 TSH 1.46 2.37 Free T4 0.71 0.64 L Laboratory Tests 07/07/24 07/07/24 13:29 13:33 Sodium 141 Potassium 4.0 Creatinine 0.72 Estimated GFR > 60 Calcium 9.5 Albumin 4.0 25-OH Vitamin D Total 12.7 L PTH Intact 80.3 H Bone density 02/13/24 BONE DENSITOMETRY CLINICAL INDICATION: Osteoporosis. COMPARISON: Previous BD dated 10/21/2020 and baseline BD dated 04/08/2010. TECHNIQUE: Using a Need Fixed DXA System (software version: 13.1) manufactured by [employer], dual-energy x-ray absorptiometry was performed of the lumbar spine and left hip. The images are of good technical quality. Summary results are attached. FINDINGS: LEFT FEMUR, NECK: Current: BMD 0.695 g/cm2, Z-score -0.8, T-score -2.5, osteoporosis. Prior: BMD 0.757 g/cm2. Baseline: BMD 0.619 g/cm2. LEFT FEMUR, TOTAL: Current: BMD 0.722 g/cm2, Z-score -0.8, T-score -2.3, osteopenia, 3.7% decrease from previous, 10.1% increase from baseline (<5% change is not significant). Prior: BMD 0.750 g/cm2. Baseline: BMD 0.656 g/cm2. AP SPINE L1-L4: Current: BMD 0.843 g/cm2, Z-score -1.4, T-score -2.8, osteoporosis, 2.9% increase from previous, 3.7% decrease from baseline (<5% change is not significant). Prior: BMD 0.819 g/cm2. Baseline: BMD 0.813 g/cm2. IDENTIFIED RISK FACTORS: Menopause, rheumatoid arthritis. HISTORY OF FRACTURE: None listed. MEDICATIONS: Calcium supplements or multivitamin, vitamin D. MM/XR DEXA axial skeleton IMPRESSION: 1. DIAGNOSIS: Osteoporosis based on the lowest T-score value of -2.8 in the lumbar spine applying World Health Organization criteria. 2. 10-YEAR FRACTURE RISK PREDICTION, FRAX: According to the guidelines, FRAX calculation should only be performed on patients in the osteopenia bone density category. Therefore, FRAX was not performed on this patient. BONE DENSITOMETRY 2020 CLINICAL INDICATION: Screening for osteoporosis. COMPARISON: Previous BD dated 12/25/2013 and baseline BD dated 04/08/2010. TECHNIQUE: Using a Need Fixed DXA System (software version: 13.1) manufactured by [employer], dual-energy x-ray absorptiometry was performed of the lumbar spine and left hip. The images are of good technical quality. Summary results are attached. FINDINGS: AP SPINE L1-L4: Current: BMD 0.819 g/cm2, Z-score -1.6, T-score -3.0, osteoporosis, 1.6% increase from previous, 0.7% increase from baseline (<5% change is not significant). Prior: BMD 0.832 g/cm2. Baseline: BMD 0.813 g/cm2. LEFT FEMUR, NECK: Current: BMD 0.757 g/cm2, Z-score -0.5, T-score -2.0, osteopenia. Prior: BMD 0.646 g/cm2. Baseline: BMD 0.619 g/cm2. LEFT FEMUR, TOTAL: Current: BMD 0.750 g/cm2, Z-score -0.7, T-score -2.0, osteopenia, 11.6% increase from previous, 14.3% increase from baseline (<5% change is not significant). Prior: BMD 0.672 g/cm2. Baseline: BMD 0.656 g/cm2. IDENTIFIED RISK FACTORS: Menopause. HISTORY OF FRACTURE: None listed. MEDICATIONS: Calcium supplements or multivitamin, vitamin D. MM/XR DEXA axial skeleton IMPRESSION: 1. DIAGNOSIS: Osteoporosis based on the lowest T-score value of -3.0 in the lumbar spine applying World Health Organization criteria. 2. 10-YEAR FRACTURE RISK PREDICTION, FRAX: Major osteoporotic fracture (clinical spine, forearm, hip or shoulder) 6.9%. Hip fracture 1.4%. PFSH Medical History Long-term use of Plaquenil Encounter for methotrexate monitoring Encounter for monitoring tocilizumab therapy Vitamin D deficiency Hypothyroxinemia Osteoarthritis (arthritis due to wear and tear of joints) Chronic venous insufficiency Subclavian artery stenosis Carotid arterial disease AAA (abdominal aortic aneurysm) Diabetes Elevated cholesterol COPD (chronic obstructive pulmonary disease) Asthma PVD (peripheral vascular disease) CAD (coronary artery disease) HTN (hypertension) Surgical History History of arthroplasty of right shoulder Hx of removal of cyst Hx of endoscopy History of colonoscopy Family History Father No problems noted. Mother Family history of high blood pressure Hx of type 1 diabetes mellitus Social History Are you a primary lawn care technician to a significant other at home: No Do you presently have visiting nurse or other home services: Yes (GAGE DESIGNER - daily) Alcohol intake: never Patient Tobacco Use Status: Former Tobacco user Tobacco use type: Cigarette service: No Current occupational status: disabled Current occupation: left hand Physical Exam Vital Signs: Last Vital Signs Pulse 88 10/09/24 11:25 BP 120/64 10/09/24 11:25 BMI result Body Mass Index 26.9 Assessment & Plan Assessment & Plan (1) Osteoporosis: Code(s): M81.0 - Age-related osteoporosis without current pathological fracture Category: Medical Qualifiers: Osteoporosis type: age-related Presence of current pathological fracture: without current pathological fracture Qualified Code(s): M81.0 - Age- related osteoporosis without current pathological fracture Plan: Patient with a history of osteoporosis diagnosed in , who was on alendronate from 5346-9849. This would make sense given that she had significant improvement in her bone density at the hip from 5693-3024 with an 11.6% increase in bone density at the hip. Her most recent bone density scan from February 2024 shows that she is still osteoporotic with osteoporosis at the lumbar spine with a T-score of -2.8 with a 2.9% increase in bone density of the lumbar spine compared to 2021. Her lowest T-scores are around-3.4, - 3.5 and L2 and L4 respectively. Plus she even has some arthritis when I reviewed the images myself likely falsely elevating her bone density at the spine. Her bone density at the hip has decreased by 3.7% compared to 2021 and she is still osteoporotic with T-score of -2.5 at the femoral neck, T-score is -2.3 at the total hip. Her risk factors for osteoporosis are age, being postmenopausal, steroid use, rheumatoid arthritis, family history of osteoporosis, petite physique. I discussed conservative measures including adequate calcium intake, adequate vitamin D levels as well as the role of weightbearing exercises in general being good for bone health. Labs from 04/09/2024 showed normal kidney function with GFR greater than 60, calcium of 9.8 with albumin of 4.1, phosphorus normal at 3.3, magnesium normal at 2.3. Bone specific alkaline phosphatase 16.1, CTX 400. Vitamin-D low at 19.8. PTH mildly elevated at 80.8. 24 hour urine calcium levels on the lower side at 68 mg for 24 hours. We put her on vitamin-D supplementation in April 2024, but it was not clear how much she was taking. Subsequently labs from July 2024 again showed vitamin-D was very low at 12.7. Normal calcium. . Still elevated at 80. Normal kidney function. She possibly has mild secondary hyperparathyroidism in the setting of vitamin-D deficiency[place] [address] units of vitamin-D weekly from July to September 2024. At this point I will repeat her blood test to look at vitamin-D and calcium and PTH levels. Hopefully her PTH is improved with vitamin-D supplementation. In addition to conservative management with calcium and vitamin D; I do believe she would benefit from antiresorptive therapy in terms of reducing future fracture risk. Since she was on Fosamax from 9307-5593. I, this is around 8 year of therapy so I would stay away from bisphosphonate and would consider Prolia for her. Her CTX is at 400s so not very elevated. However based on the bone density scan I still think she would benefit from antiresorptive therapy. I counseled regarding the mechanism of action, route of administration, common side effects as well as black box warnings particularly osteonecrosis of the jaw and atypical femur fracture of Prolia. I will wait for her vitamin-D levels to come back, before starting her on Prolia. Discussed with the patient: Common side effects of Prolia include muscle and joint aches and pains, low calcium level which may happen if calcium and vitamin D intake is inadequate. So please need to take calcium and vitamin D regularly. Other side effects may include skin rash, skin or bladder infection. Very rare side effects include osteonecrosis of the jaw and femur fractures. Should you experience any side effects with Prolia, please let us know. Plan: -continue 3-4 servings of calcium rich foods daily -encouraged weight-bearing exercise with walking at least 25 to 30 minutes daily -ordered blood work with repeat calcium, vitamin-D, PTH levels -if vitamin-D levels have normalized, we will consider starting Prolia, if not normal we will wait for vitamin-D levels to be optimized before we begin therapy. -follow up in 5 weeks Plan I spent 30 minutes in reviewing the record, seeing the patient and documenting in the medical record. Orders: Orders Albumin Level Today M81.0 - Age-related osteoporosis without current pathological fracture, R79.89 - Other specified abnormal findings of blood chemistry Calcium Today M81.0 - Age-related osteoporosis without current pathological fracture, R79.89 - Other specified abnormal findings of blood chemistry Calcium, Ionized Today M81.0 - Age-related osteoporosis without current pathological fracture, R79.89 - Other specified abnormal findings of blood chemistry Phosphorus Today M81.0 - Age-related osteoporosis without current pathological fracture, R79.89 - Other specified abnormal findings of blood chemistry Parathyroid Hormone Intact Today M81.0 - Age-related osteoporosis without current pathological fracture, R79.89 - Other specified abnormal findings of blood chemistry Vitamin D 25-OH Total Today M81.0 - Age-related osteoporosis without current pathological fracture, R79.89 - Other specified abnormal findings of blood chemistry Creatinine Today M81.0 - Age-related osteoporosis without current pathological fracture, R79.89 - Other specified abnormal findings of blood chemistry Medications: Discontinued cholecalciferol (vitamin D3) Discontinued Reason: Doctor's Order 1,250 mcg PO QWEEK 3 months 13 caps 0RF Coding Level of Care Code Est Pt Level 3 (65756) Diagnoses Age-related osteoporosis without current pathological fracture M81.0 Osteoporosis type: age-related Presence of current pathological fracture: without current pathological fr acture
[2024-10-09 11:25] VITALS: BP 120/64; PULSE 88; BMI 26.9
--- OUTSIDE RECORDS SUMMARY | 2024-10-09 12:52 | XMS_ITS | Encounter Summary ---
Author Organization [employer] Address [address] [facility] 7t [place] [address] Care Team Providers Care Meat Supervisor Name Role Phone Kamille Munroenifer Primary Care Provider [phone] Encounter Details Date Type Department Care Team ([facility] st Contact Info) Description 09/14/2023 Orders Only [facility] MEDICINE [address] [place] [address] ProviderFlor MD Social History Tobacco Use Types [...] on filedocumented in this encounter Care Teams Meat Supervisor Relationship Specialty Start Date End Date Teresita Munroe DO [address] [place] [address] PCP - General Family Medicine 07/28/14 documented as of this encounter
--- OUTSIDE RECORDS SUMMARY | 2024-10-09 12:52 | XMS_ITS | Encounter Summary ---
Author Organization [employer] Address [address] [facility] [address]t [place] [address] Care Team Providers Care Desolderer Name Role Phone Teresita Munroe DO Primary Care Provider Encounter Details Date Type Department Care Team (Latest Contact Info) Description 12/22/2021 Abstract [facility] CONVERSIONS Dental, Provider, DDS Social History Tobacco [...] on filedocumented in this encounter Care Teams Desolderer Relationship Specialty Start Date End Date Teresita Munroe DO [address] [place] [address] PCP - General Family Medicine 07/28/14 documented as of this encounter
--- OUTSIDE RECORDS SUMMARY | 2024-10-09 12:52 | XMS_ITS | Encounter Summary ---
Author Organization [employer] Address [address] [facility] [address]t h Floor [place] [id number] Care Team Providers Care Lard Bleacher Name Role Phone Teresita Munroe DO Primary Care Provider [phone] Reason for Visit * Reason Onset Date Comments Med Refill 05/11/2023 Encounter Details Date Type Department Care Team (Late st Contact Info) Description 05/11/2023 Refill [facility] MEDICINE [address] [place] [address] Teresita Munroe DO [address] [place] [address] Chronic pain of both shoulders (Primary Dx) [...] traMADol (Ultram) 50 MG tablet [facility] [address] [place] [address] documented in this encounter Plan of Treatment Not on file documented as of this encounter Visit Diagnoses Diagnosis Chronic pain of both shoulders- Primary documented in this encounter Care Teams Lard Bleacher Relationship Specialty Start Date End Date Teresita Munroe DO [address] [place] [address] PCP - General Family Medicine 07/28/14 documented as of this encounter
--- OUTSIDE RECORDS SUMMARY | 2024-10-09 12:52 | XMS_ITS | Encounter Summary ---
Author Organization [employer] Address [address] [facility] 7t [place] [address] Care Team Providers Care Silver Chaser Name Role Phone Teresita Munroe DO Primary Care Provider Encounter Details Date Type Department Care Team (Latest Contact Info) Description 2019 Abstract [facility] CONVERSIONS Dental, Provider, DDS Social [...] on filedocumented in this encounter Care Teams Silver Chaser Relationship Specialty Start Date End Date Teresita Munroe DO [address] [place] [address] PCP - General Family Medicine 07/28/14 documented as of this encounter
--- OUTSIDE RECORDS SUMMARY | 2024-10-09 12:52 | XMS_ITS | Encounter Summary ---
Author Organization [employer] Address [address] [facility] 7t [place] [address] Care Team Providers Care Health Physicist Name Role Phone Teresita Munroe DO Primary Care Provider Encounter Details Date Type Department Care Team (Late st Contact Info) Description 06/15/2022 Abstract [facility] [address] [place] [address] Jelena Morgan DDS [address] [place] [address] Social History Tobacco Use Types Packs/Day Years [...] on filedocumented in this encounter Care Teams Health Physicist Relationship Specialty Start Date End Date Teresita Munroe DO [address] [place] [address] PCP - General Family Medicine 07/28/14 documented as of this encounter
--- OUTSIDE RECORDS SUMMARY | 2024-10-09 12:52 | XMS_ITS | Encounter Summary ---
Author Organization [employer] Address 75 [facility] 7t [place] [address] Care Team Providers Care Floor Covering Contractor Name Role Phone Teresita Munroe DO Primary Care Provider [phone] Reason for Visit * Reason Comments Med Refill Encounter Details Date Type Department Care Team ([facility] st Contact Info) Description 07/02/2023 Refill [facility] [address] [place] [address] Teresita Munroe DO [address] [place] [address] Chronic obstructive pulmonary disease, unspecified COPD type [...] (CMS/HCC) documented in this encounter Care Teams Floor Covering Contractor Relationship Specialty Start Date End Date Teresita Munroe DO [address] [place] [address] PCP - General Family Medicine 07/28/14 documented as of this encounter
--- OUTSIDE RECORDS SUMMARY | 2024-10-09 12:52 | XMS_ITS | Encounter Summary ---
Author Organization [employer] Address [address] [facility] 7t [place] [address] Care Team Providers Care Garage Worker Name Role Phone Teresita Munroe DO Primary Care Provider [phone] Encounter Details Date Type Department Care Team (Late st Contact Info) Description 08/03/[address] [facility]ULT D[facility] [address] [place] [address] Bhanu Barakat DDS [address] [place] [address] Social History Tobacco Use Types Packs/Day Years [...] on filedocumented in this encounter Care Teams Garage Worker Relationship Specialty Start Date End Date Teresita Munroe DO [address] [place] [address] PCP - General Family Medicine 07/28/14 documented as of this encounter
--- OUTSIDE RECORDS SUMMARY | 2024-10-09 12:52 | XMS_ITS | Clinical Summary ---
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 30 tablet 07/15/19 25 Active Umeclidinium [place] (Incruse Ellipta) 62.5 MCG/ACT aerosol powderIndicati ons:Chronic obstructive pulmonary disease, unspecified COPD type (CMS/HCC) Inhale 1 Act (62.5 mcg) Once per day. 30 Act 07/15/19 25 Active Alcohol Swabs (Alcohol Prep) padsIndication s: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 complication, without long-term current use of insulin ([facility]) 1 each 3 times daily. 100 each [...] by mouth at bedtime. 28 tablet 09/18/19 25 Active traMADol (Ultram) 50 MG [...] INTO EACH NOSTRIL EVERY DAY. 17 g 11 09/24/19 25 Active benzonatate (Tessalon Perles) 100 MG capsule Take 1 capsule (100 mg) by mouth if needed in the morning, at noon, and at bedtime for cough for up to 10 days. Do not crush or chew. 30 capsule 10/03/19 25 2024 Active fluticasone (Flonase Allergy Relief) 50 MCG/ACT [...] replace cap. 16 g 09/18/19 25 2024 Discontinued predniSONE (Deltasone) 20 MG tablet Take [...] Encounters Date Type Department Care Team Description 10/02/[address] [address] Teresita Munroe DO Results 09/25/[address] [address] Teresita Munroe DO 09/18/[address] [address] Teresita Munroe DO 09/17/2024 11:00 AM EDT Office Visit [address] [address] Teresita Munroe DO 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 complication, without long-term current use of insulin ([facility]) (Primary Dx); Mixed hyperlipidemia; Fatty liver; Generalized anxiety disorder; Infrarenal abdominal aortic aneurysm (AAA) without rupture ([facility]); Chronic obstructive pulmonary disease, unspecified COPD type ([facility]); Rheumatoid arthritis, involving unspecified site, unspecified whether rheumatoid factor present ([facility]); Osteoporosis without current pathological fracture, unspecified osteoporosis type; Chronic pain of both shoulders; Borderline abnormal TFTs; Heartburn; Forgetfulness; Acute URI; Cough, unspecified type; Healthcare maintenance 09/17/2024 Travel 09/08/2024 Patient Outreach [address] [address] Teresita Munroe DO Pre-visit Planning (SDOH screening negative and tobacco screening negative) 08/28/2024 Refill [facility] [address] [place], [place] [phone] Soila Scott MD Chronic pain of both shoulders 07/23/[address] [phone] Teresita Munroe DO Medication Question 07/22/[address] [address] Teresita Munroe DO Recall Letter (Recall Letter sent 07/22/24.) 07/15/2024 10:20 AM EST Office Visit [facility] [address] [place] [phone] Chris Emanuel MD 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 complication, without long-term current use of insulin ([facility]) (Primary Dx); Influenza B; COVID-19; Chronic obstructive pulmonary disease, unspecified COPD type ([facility]); Rheumatoid arthritis, involving unspecified site, unspecified whether rheumatoid factor present ([facility]) from Last 3 Months Immunizations Name Administration [...] Additional history exists Lipid Panel 04/09/2025 04/09/2024, 0511/2022, 02/21/2022, Additional history exists Dental X-Ray: Full [...] Procedure Name Priority Date/Time Associated Diagnosis Comments MR BRAIN WO CONTRAST Routine 09/29/2024 9:52 AM EDT Forgetfulness XR CHEST 2 VIEWS STAT 09/17/2024 12:5 [...] without long-term current use of insulin (CMS/HCC) POCT GLUCOSE Routine 09/17/2024 11:55 AM EDT 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 complication, without long-term current use of insulin (CMS/HCC) BI MAMMOGRAM SCREENING TOMOSYNTHESIS BILATERAL Routine 08/01/2024 8:15 AM EST POCT INFLUENZA B (ID NOW RAPID MOLECULAR) Routine 07/15/2024 10:56 AM EST Influenza B COVID-19 POCT INFLUENZA A (ID NOW RAPID MOLECULAR) Routine 07/15/2024 10:56 AM EST Influenza B COVID-19 POCT RAPID COVID ANTIGEN Routine 07/15/2024 10:56 AM EST Influenza B COVID-19 HEPATITIS PANEL, GENERAL Routine 04/09/2024 9:31 AM [...] Recently Relevant to Health Maintenance Results * MR Brain w/o Contrast (09/29/2024 9:52 AM EDT) Anatomical Region Laterality Modality Brain Magnetic Resonan ce 09/29/2024 9:52 AM EDT Narrative 10/01/2024 11:55 AM EDT ? [facility] ?[address] ?[place] [address] ? Magnetic Resonance Report ? Signed ? Patient: Gagan,Aspen ?MR#: [id number] ?? 4 ? : 1950 ?Acct:[id number] ? Age/Sex: 74 / F ?ADM Date: 09/29/24 ? Loc: HO.MRI ? Attending Dr: Teresita Munroe DO ? Ordering Physician: Teresita Munroe DO ?? Date of Service: 09/29/24 ?? Procedure(s): MR head/brain wo con ?? Accession Number(s): [id number] ? cc: Teresita Munroe DO ? EXAMINATION: ?? MR BRAIN WITHOUT CONTRAST ? CLINICAL INFORMATION: ?? Memory loss. Right upper extremity pain. ? COMPARISON: ?? April 22, 2018. ? TECHNIQUE: ?? MRI of the brain was obtained using routine sequences without contrast. ? FINDINGS: ?? There is a round, 2.6 cm isointense T1 heterogeneous mixed ?? predominantly hyperintense T2 FLAIR restricted diffusion mass centered ?? in the right maxillary sinus resulting in bowing of the medial wall ?? into the right nasal cavity. ? No acute intracranial hemorrhage, mass effect, midline shift, ?? hydrocephalus or herniation. ?? No restricted diffusion within the brain parenchyma. ?? Flow-void signal within the main cerebral vessels is normal. ?? Prominence of the extra-axial CSF spaces cerebral sulci and ventricles ?? likely central volume loss. ?? Mild patchy hyperintense T2 FLAIR signal within the deep ?? periventricular white matter of the centrum semiovale and luz ?? radiata more conspicuous adjacent to the body of the lateral ventricles. ? 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 Probable old lacunar infarcts, ?? basal ganglia. ?? Sellar/suprasellar region is normal. ?? Craniocervical junction is intact. ? MR/MR head/brain wo con ?? IMPRESSION: ?? 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 Recommend direct inspection ?? since underlying neoplasm cannot be excluded. ? No acute brain abnormality. ?? White matter disease and old lacunar infarcts, likely related to small ?? vessel occlusive disease. ? Electronically signed by: ??Sky Holland MD ??10/01/2024 11:52 AM ?? EDT RP ? Dictated By: ?Sky Roger MD ? Signed By: ?<Electronically signed by Sky Rowland MD in OV> ? 10/01/24 1152 ? DD/ 0952 ? TD/TT: 09/29/24 1035 ? Assistant Strength Coach: ? Procedure Note Donavister, Image - 10/01/2024 [place] [address] Magnetic Resonance Report Signed Patient: Shirin Farah#: [id number] 4 : 9Acct:[id number] Age/Sex: 74 / FADM Date: 09/29/24 Loc: HO.MRI Attending Dr: Teresita Munroe DO Ordering Physician: Teresita Munroe DO Date of Service: 09/29/24 Procedure(s): MR head/brain wo con Accession Number(s): [id number] cc: Teresita Munroe DO EXAMINATION: MR BRAIN WITHOUT CONTRAST CLINICAL INFORMATION: Memory loss. Right upper extremity pain. COMPARISON: April 22, 2018. TECHNIQUE: MRI of the brain was obtained using routine sequences without contrast. FINDINGS: There is a round, 2.6 cm isointense T1 heterogeneous mixed predominantly hyperintense T2 FLAIR restricted diffusion mass centered in the right maxillary sinus resulting in bowing of the medial wall into the right nasal cavity. No acute intracranial hemorrhage, mass effect, midline shift, hydrocephalus or herniation. No restricted diffusion within the brain parenchyma. Flow-void signal within the main cerebral vessels is normal. Prominence of the extra-axial CSF spaces cerebral sulci and ventricles likely central volume loss. Mild patchy hyperintense T2 FLAIR signal within the deep periventricular white matter of the centrum semiovale and luz radiata more conspicuous adjacent to the body of the lateral ventricles. 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 Probable old lacunar infarcts, basal ganglia. Sellar/suprasellar region is normal. Craniocervical junction is intact. 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 Recommend direct inspection since underlying neoplasm cannot be excluded. No acute brain abnormality. White matter disease and old lacunar infarcts, likely related to small vessel occlusive disease. Electronically signed by: Sky Holland MD 10/01/2024 11:52 AM EDT RP Dictated By: Sky Roger MD Signed By: <Electronically signed by Sky Rowland MDin OV> 10/01/24 1152 DD/ 0952 TD/TT: 09/29/24 1035 Assistant Strength Coach: us Teresita Ludwig DO IMG MRI PROCEDURES Edited Re sult - Final * XR Chest 2 Views (09/17/2024 12:53 PM EDT) Anatomical Region Laterality Modality Chest Radiographic Dayana ging 09/17/2024 12:5 3 PM EDT Narrative 09/17/2024 1:31 PM EDT ?[facility] ?[address] ?[place] [address] ?XRay Report ? Signed ? Patient: Gagan,Aspen ?MR#: [id number] ?? 4 ? : 1950 ?Acct:[id number] ? Age/Sex: 74 / F ?ADM Date: 09/17/24 ? Loc: HO.HHCX ? Attending Dr: Teresita Munroe DO ? Ordering Physician: Teresita Munroe DO ?? Date of Service: 09/17/24 ?? Procedure(s): XR chest 2V ?? Accession Number(s): [id number] ? cc: Teresita Munroe DO ? EXAMINATION: [...] DD/ 1253 ? TD/TT: 09/17/24 1300 ? Assistant Strength Coach: ? Procedure Note Kait, Larissa - 09/17/[address] [address] XRay Report Signed Patient: Shirin Farah#: [id number] 4 : 9Acct:[id number] Age/Sex: 74 / FADM Date: 09/17/24 Loc: HO.HHCX Attending Dr: Teresita Munroe DO Ordering Physician: Teresita Munroe DO Date of Service: 09/17/24 Procedure(s): XR chest 2V Accession Number(s): [id number] cc: Teresita Munroe DO EXAMINATION: XR CHEST [...] 09/17/24 1327 DD/ 1253 TD/TT: 09/17/24 1300 Assistant Strength Coach: us Teresita Munroe DO IMG XR PROCEDURES Final Resu lt * POCT Rapid Influenza B SANCHES ID NOW (09/17/2024 12:38 PM EDT) Only the most recent of2 resultswithin the time period is included. Influenza B Negative Negative, Indeterminate [facility] QC Media Lot # [id number] [facility] Lot# Expiration Date [facility] Swab 09/17/2024 12:3 8 PM EDT Teresita Munroe DO POINT OF CARE TEST ENTER/GUME T ORDERABLES Final Result Performing Organization Address [facility] de Phone Number [facility] [address] [place] [phone] * POCT Rapid Influenza A SANCHES ID NOW (09/17/2024 12:38 PM EDT) Only the most recent of2 resultswithin the time period is included. Influenza A Negative Negative, Indeterminate [facility] QC Media Lot # [id number] [facility] Lot# Expiration Date [facility] Swab 09/17/2024 12:3 8 PM EDT Teresita Munroe DO POINT OF CARE TEST ENTER/GUME T ORDERABLES Final Result Performing Organization Address City/[facility]/ZIP Co de Phone Number [facility] [address] [place] [address] [phone] * POCT Rapid Covid-19 BinaxNOW (09/17/2024 12:30 PM EDT) Only the most recent of2 resultswithin the time period is included. Rapid COVID Ag Negative QC Media Lot # [id number] Lot# Expiration Date ,026 Swab 09/17/2024 12:3 0 PM EDT Teresita Munroe DO POINT OF CARE TEST ENTER/GUME T ORDERABLES Final Result * POCT HGB A1C (09/17/2024 11:56 AM EDT) Pathologist [facility] Hemoglobin A1C 6.0 4.0 - 6.0 % QC Media Lot # [id number] Lot# Expiration Date Blood 09/17/2024 11:5 6 AM EDT Teresita Munroe DO POINT OF CARE TEST ENTER/GUME T ORDERABLES Final Result * POCT Glucose (09/17/2024 11:55 AM EDT) Pathologist [facility] Glucose Blood, POC 78 60 - 200 [...] EST Narrative 08/04/2024 3:31 PM EST ? [place] [facility] ? [address] ?[place] [address] ? Mammography Report ? Signed ? Patient: Gagan,Aspen ?MR#: [id number] ?? 4 ? : 1950 ?Acct:[id number] ? Age/Sex: 74 / F ?ADM Date: 08/01/24 ? Loc: HO.MAMMO ? Attending Dr: Teresita Munroe DO ? Ordering Physician: Teresita Munroe DO ?Results: 1N ?? egative ? Date of Service: 08/01/24 ?Follow Up: 1 Year From Orig ?? inal Mammogram ? Procedure(s): MM tomosynthesis screening BI ?? Accession Number(s): [id number] ? cc: Teresita Munroe DO ? EXAMINATION: [...] ??Brittany Cadet DO ??08/04/2024 03:28 PM EST ? Dictated By: ?Brittany Cadet DO ? Signed By: ?<Electronically signed by Brittany Cadet, DO in OV> ? 08/04/24 1528 ? DD/ 0815 ? TD/TT: 08/01/24 0826 ? Assistant Strength Coach: ? Procedure Note Donavister, Image - 08/04/20[facility] [address] [place] [address] Mammography Report Signed Patient: Aspen FarahMR#: [id number] 4 : 9Acct:[id number] Age/Sex: 74 / FADM Date: 08/01/24 Loc: TRIXIE Attending Dr: Teresita Munroe DO Ordering Physician: Teresita Munroeults: 1N egative Date of Service: 08/01/24Follow Up: 1 Year From Orig inal Mammogram Procedure(s): MM tomosynthesis screening BI Accession Number(s): [id number] cc: Teresita Munroe DO EXAMINATION: MM SCREENING [...] 08/04/24 1528 DD/ 0815 TD/TT: 08/01/24 0826 Assistant Strength Coach: Teresita Munroe DO IMG BI PROCEDURES Final Resu lt * Hepatitis Panel, General (04/09/2024 9:31 AM EST) Hepatitis A IgM Nonreactive Nonreactive [facility] Comment:IgM antibodies to GUERRA V not detected; does not exclude earlyacute or recovered HAV infection. ~Hepatitis B Surface Antibody REACTIVE Nonreactive [facility] Comment:REACTIVE: > 11.99 mI U/mL Hepatitis B Core Antibody Nonreactive Nonreactive [facility] Hepatitis C Antibody Nonreactive Nonreactive [facility] Comment:Antibodies to HCV no t detected; does not exclude early acuteHCV infection. Hepatitis B Surface Ag Negative Negative [facility] 04/09/2024 9:31 AM EST 04/09/2024 9:31 AM EST us Generic External Data Provider LAB BLOOD ORDERAB LES Final Result [facility] [address] [place] [address] [phone] * Lipid Panel, Standard (04/09/2024 9:31 AM EST) Triglycerides 88 <150 mg/dL [facility] Comment:Desirable Triglyceri de: less than 150 mg/dLBorderline High Triglyceride 150-199 mg/dLHigh Triglyceride: 200-499 mg/dLVery High Triglyceride: greater than or equal to 5OO mg/dL Cholesterol 97 <200 mg/dL [facility] Comment:Desirable Cholestero l: less than 200 mg/dLBorderline High Cholesterol: 200-239 mg/dLHigh Cholesterol: greater than 239 mg/dL LDL Cholesterol Calculated 32 <100 mg/dL [facility] Comment:Desirable LDL: less than 100 mg/dLNear Optimal/Above Optimal LDL: 110- 129 mg/dLBorderline High LDL: 130-159 mg/dLHigh LDL: 160-189 mg/dLVery High LDL: greater than or equal to 190 mg/dL HDL Cholesterol 48 >40 mg/dL [facility] Comment:Desirable HDL: great er than 40 mg/dL Note: This HDL assay may give artificially low results in patients with liver disease. Blood Venous blood specimen / Unknown 04/09/2024 9:31 AM EST 04/09/2024 9:31 AM EST us Teresita Munroe DO LAB BLOOD ORDERABLES Final R esult Performing Organization Address [facility] Co de Phone Number [facility] [address] [place] [phone] * Albumin, Random Urine W/Creatinine (04/09/2024 9:28 AM EST) Creatinine, Urine 128.14 mg/dL [facility] Microalbumin Urine 12.0 mg/L [facility] Microalbum Creatinine Ratio Ur 9.3 <30 ug/mg cr [facility] Comment:Albumin/Creatinine R atio Reference Ranges: Normal: < 30 ug/mg creatinine Microalbuminuria: 30 - 300 ug/mg creatinineClinical Albuminuria: > 300 ug/mg creatinine Urine (Urine, Random) 04/09/2024 9:28 AM EST 04/09/2024 9:40 AM EST us Teresita Munroe DO LAB URINE ORDERABLES Final R esult Performing Organization Address [facility]/ZIP Co de Phone Number [facility] [address] [place] [phone] * Hm Colonoscopy (11/10/2020 10:20 AM EDT) us Historical Provider MD HEALTH MAINTENANCE Final Result from Last 3 Months or Most Recently Relevant to Health Maintenance Insurance [facility] USP OPTIONS (HMO D-SNP) [place] [id number] [facility] Care Teams Downstairs Maid Relationship Specialty Start Date End Date Teresita Munroe DO [address] [place] [address] [phone] PCP - General Family Medicine 07/28/14
--- OUTSIDE RECORDS SUMMARY | 2024-10-09 12:52 | XMS_ITS | Encounter Summary ---
Author Organization [employer] Address [address] [facility] 7t [place] [address] Care Team Providers Care Traffic Or System Dispatcher Name Role Phone Teresita Munroe DO Primary Care Provider [phone] Reason for Visit * Reason Comments Med Refill Encounter Details Date Type Department Care Team (Late st Contact Info) Description 01/03/2024 Refill [facility] [address] [place], [place] [phone] Teresita Munroe DO [address] [place] [address] 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 complication, unspecified whether mcfp insulin use (CMS/HCC); Osteopenia, unspecified location Social [...] 2 diabetes mellitus without complication, unspecified whether mcfp insulin use ([facility]) Osteopenia, unspecified location documented in this encounter Care Teams Traffic Or System Dispatcher Relationship Specialty Start Date End Date Teresita Munroe DO [address] [place] [phone] PCP - General Family Medicine 07/28/14 documented as of this encounter
== END 2024-10-09 11:51 | disposition home or self-care (01) ==
LOC: HO.ENCR 11:22
PROVIDERS: PCP Family Medicine; Visit Provider Student in an Organized Health Care Education/Training Program
DX: M81.0 Age-related osteoporosis without current pathological fracture (principal)
CPT/HCPCS: 99213

== ENCOUNTER → 2024-10-09 11:22 | Outpatient (BNVA) | payer OTHER, SELFPAY | PROVIDERS: PCP Family Medicine; Visit Provider Student in an Organized Health Care Education/Training Program | DX: M81.0 Age-related osteoporosis without current pathological fracture (principal); R79.89 Other specified abnormal findings of blood chemistry | CPT/HCPCS: 99212 ==

== ENCOUNTER 2024-10-30 11:48 | Outpatient (AMB) | payer OTHER, SELFPAY ==
--- NOTE | 2024-10-30 11:49 | A.OFFVIS_ITS ---
Vital Signs 10/30/24 11:53 Height 5 ft 3 in Weight 149 lb 11.102 oz BMI 26.5 BP 120/70 Blood Pressure Location Rt brachial Position Sitting Pulse 61 Pulse Source Pulse Oximeter Pulse Oximetry (%) 97 Oxygen Delivery Method Room Air Intake Visit Reasons: follow up Intake Note: Patient presents for RA follow up. 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 Services: Twist Tester Present Twist Tester Name: Jasmina [id number] Information Interpreted: non-clinical & clinical Allergies lobster Allergy (Uncoded 10/09/24 11:30) Nausea and Vomiting Medication List - Last Reconciled 10/30/24 by Yolanda Butt MD acetaminophen ER 650 mg PO TID albuterol sulfate 90 mcg/actuation (Ventolin HFA) 2 puffs inhalation Q4-6H PRN aspirin 81 mg PO DAILY buspirone 1 tab PO BID calcium carbonate (Calcium 600) 600 mg PO DAILY cholecalciferol (vitamin D3) 25 mcg PO DAILY 3 months clopidogrel 75 mg PO DAILY diclofenac sodium 1% 1 ea topical QID docusate sodium 100 mg PO BID 14 days duloxetine 60 mg PO BID evolocumab (Repatha SureClick) 1 ea subcut Q14D evolocumab (Repatha SureClick) 140 mg subcut Q2W ezetimibe 10 mg PO DAILY fenofibrate 160 mg PO DAILY fexofenadine 180 mg PO DAILY fluticasone propion-salmeterol 500-50 mcg/dose 1 inh inhalation BID folic acid 1 mg PO DAILY gabapentin 300 mg PO DAILY ipratropium-albuterol 0.5 mg-3 mg(2.5 mg base)/3 mL mL inhalation lidocaine 5% 1 patch topical DAILY metformin ER 500 mg PO BID methotrexate sodium 7.5 mg (3 x 2.5 mg) PO QWEEK 90 days methylprednisolone (Medrol) 4 mg orally; Take 3 tablets for 10 days, then 2 tablets for 10 days then 1 tablet for 10 days then stop midodrine 1 tab PO BID montelukast 10 mg PO DAILY quetiapine 1 tab PO BEDTIME rosuvastatin 40 mg PO DAILY sodium chloride 0.65% (Deep Sea Nasal) 1 - 2 sprays intranasal Q2-3H PRN tramadol 1 tab PO BID PRN umeclidinium 62.5 mcg/actuation (Incruse Ellipta) 1 inh inhalation DAILY HPI Comments Details: Patient is a 73-year-old female with hyperlipidemia, diabetes who presents for evaluation of her seronegative erosive rheumatoid arthritis. Interval History: Last seen 07/22/2024 with me. At that time she did not get the Medrol prescribed at the last visit Enbrel had not been effective. She was started on Actemra infusion 08/2024 in addition to continued her methotrexate Today, patient is complaining of bilateral elbow pain and upper arm pain Hand pain and wrist pain has improved Rheumatologic History: Onset~ 2011?. 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 Methotrexate added 2015. 06/22: sulfasalazine added Hydroxychloroquine stopped 08/21 - retinal edema Patient reported eye exam 09/18, 04/22, 03 January 2022: Methotrexate held in preparation for shoulder surgery. Not restarted so far. Sulfasalazine continued. 2022 methotrexate and sulfasalazine restarted. However both ineffective Humira added 10/2023. Stopped 03/2024 ineffective. Sulfasalazine also stopped Abatacept 03/2024. Insurance denied Enbrel 04/2024 Current Rheumatology Medication(s): Methotrexate 3 tablets weekly folic acid 1 mg daily Tocilizumab infusion 4 milligrams/kilogram every 4 weeks PFSH Medical History Long-term use of Plaquenil Encounter for methotrexate monitoring Encounter for monitoring tocilizumab therapy Vitamin D deficiency Hypothyroxinemia Osteoarthritis (arthritis due to wear and tear of joints) Chronic venous insufficiency Subclavian artery stenosis Carotid arterial disease AAA (abdominal aortic aneurysm) Diabetes Elevated cholesterol COPD (chronic obstructive pulmonary disease) Asthma PVD (peripheral vascular disease) CAD (coronary artery disease) HTN (hypertension) Surgical History History of arthroplasty of right shoulder Hx of removal of cyst Hx of endoscopy History of colonoscopy Family History Father No problems noted. Mother Family history of high blood pressure Hx of type 1 diabetes mellitus Social History Are you a primary childcare teacher to a significant other at home: No Do you presently have visiting nurse or other home services: Yes (W[employer] RESOURCE [employer]SULT[employer] - daily) Alcohol intake: never Patient Tobacco Use Status: Former Tobacco user Tobacco use type: Cigarette service: No Current occupational status: disabled Current occupation: left hand Review of Systems Const Details: Review of Systems Constitutional: Denies fever, chills, weight loss ENT: Denies vision changes, eye pain or eye redness, dental caries, dry mouth GI: Denies nausea, vomiting, diarrhea, abdominal pain, change in BM Pulm: Denies SOB, REID, hemoptysis, wheezing Cards: Denies chest pain, palpitations Skin: Denies Raynaud's, rash, nail changes, photosensitivity, 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 Well appearing and in no apparent painful distress HEENT Conjunctiva and sclera clear. ?Pupils equal round and reactive to light. ?No lymphadenopathy. ? CHEST/RESPIRATORY SYSTEM Normal respiratory effort and able to speak in complete sentences. ?Clear to auscultation bilaterally. ?No crackles, rales, rhonchi, wheezes heard. CARDIAC SYSTEM Regular rate and rhythm. ?S1 and S2 heard no murmurs. ?Radial pulses intact bilaterally MSK Hands: ?Able to make a fist. No synovitis noted to the MCPs, PIPs or DIPs. ?No tenderness to palpation of these joints. No deformities noted. ? Wrists: ?Full range of motion at the wrists without pain. ?No tenderness to palpation or synovitis noted to the wrists. Elbows: Full range of motion without pain. No tenderness, weakness, swelling, increased warmth or erythema. TTP of the bilateral medial epicondyles Shoulders: Full range of active range of motion without pain. No tenderness, weakness, swelling, increased warmth or erythema. Knees: ?Full range of motion. ?No tenderness, swelling, increased warmth or erythema.?No effusion but crepitations noted Ankles: Full range of motion. ?No tenderness, swelling, increased warmth or erythema.? Feet: ?Negative squeeze test. ?No tenderness to palpation or swelling of the MTPs. Tender points:?No tenderness to palpation of the bilateral trapezius, supraspinatus, greater trochanters, anterior costochondral junctions, bilateral gluteal areas, bilateral suboccipital muscle insertions SKIN Skin intact without rashes. Results Reviewed Results Reviewed: Laboratory Tests 07/07/24 10/16/24 13:29 09:45 WBC 4.7 L RBC 3.88 L Hgb 12.0 Hct 35.8 L Plt Count 181 ESR 38 H Sodium 143 Potassium 3.4 Chloride 108 Carbon Dioxide 28 BUN 13 Creatinine 0.75 AST 27 ALT 25 Alkaline Phosphatase 78 C-Reactive Protein 0.79 H Triglycerides 343 H Cholesterol 233 H LDL Cholesterol, Calc 127 H HDL Cholesterol 38 L 25-OH Vitamin D Total 12.7 L Assessment & Plan Assessment & Plan (1) Seronegative rheumatoid arthritis of multiple sites: Comment: Onset~ 2011?. 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 Methotrexate added 2015. 06/22: sulfasalazine added Hydroxychloroquine stopped 08/21 - retinal edema Patient reported eye exam 09/18, 04/22, 03 January 2022: Methotrexate held in preparation for shoulder surgery. Not restarted so far. Sulfasalazine continued. 2022 methotrexate and sulfasalazine restarted. However both ineffective Humira added 10/2023. Stopped 03/2024 ineffective. Sulfasalazine also stopped Abatacept denied Enbrel 05/2024 - 07/2024. Ineffective Code(s): M06.09 - Rheumatoid arthritis without rheumatoid factor, multiple sites Category: Medical Plan: #Seronegative RA Patient with seronegative rheumatoid arthritis currently doing much better on the Actemra infusions. She currently is complaining of medial and lateral epicondylitis, which I gave her a handout with exercises for this. We will continue Tocilizumab at the current dose and monitor for response Plan - Tocilizumab infusions 4mg/kg every 4 weeks - Continue methotrexate and folic acid for now - RTC 4 months - Labs before visit: CBC, CMP, ESR, CRP, lipid panel (2) Osteoporosis: Code(s): M81.0 - Age-related osteoporosis without current pathological fracture Category: Medical Qualifiers: Osteoporosis type: age-related Presence of current pathological fracture: without current pathological fracture Qualified Code(s): M81.0 - Age- related osteoporosis without current pathological fracture Plan: #Osteoporosis Patient with osteoporosis currently being followed by Endocrinology Vit D levels improved (3) Encounter for monitoring tocilizumab therapy: Code(s): Z51.81 - Encounter for therapeutic drug level monitoring; Z79.620 - technician terminal and repeater (current) use of immunosuppressive biologic Category: Medical Plan: #Long-term Use of Tocilizumab Discussed the risks and benefits of tocilizumab with the management of this patient's rheumatic condition. ? Benefits include decreased pain, improved mortality, improved quality of life Risks include LFT abnormalities, elevated triglycerides, GI perforations Contraindicated in a patient with history of diverticulitis Monitoring: ?CBC, CMP, triglycerides (4) Encounter for methotrexate monitoring: Code(s): Z51.81 - Encounter for therapeutic drug level monitoring; Z79.631 - half-way (current) use of antimetabolite agent Category: Medical Plan: #Long-term Current Use of Methotrexate Discussed with patient the benefits and risks of methotrexate for managing their rheumatic condition Benefits include reduced pain, reduced mortality, maintenance of remission and reduction of flares Risks include oral ulcers, photosensitivity, hepatotoxicity, hematologic toxicity, pneumonitis, flu-like symptoms (especially day after administration), nodulosis, lymphomas ? Limit alcohol and avoid Bactrim ? Monitoring: ?CBC, BMP, LFTs every 3-4 months and hepatitis serologies as needed Plan I spent 25 minutes reviewing the record and labs, taking a history, examining the patient, discussing the treatment plan and documenting in the medical record Medications: Discontinued methylprednisolone (Medrol) Discontinued Reason: Doctor's Order 4 mg orally; Take 3 tablets for 10 days, then 2 tablets for 10 days then 1 tablet for 10 days then stop 60 tabs 0RF M06.09 - Rheumatoid arthritis without rheumatoid factor, multiple sites Coding Level of Care Code Est Pt Level 3 (00042) Complex EM visit Add On G2211 Diagnoses Seronegative rheumatoid arthritis of multiple sites M06.09 Age-related osteoporosis without current pathological fracture M81.0 Osteoporosis type: age-related Presence of current pathological fracture: without current pathological fracture Encounter for monitoring tocilizumab therapy Z51.81; Z79.620 Encounter for methotrexate monitoring Z51.81; Z79.631
[2024-10-30 11:53] VITALS: BP 120/70; PULSE 61; O2SAT 97; BMI 26.5
--- OUTSIDE RECORDS SUMMARY | 2024-10-30 12:02 | XMS_ITS | Encounter Summary ---
Author Organization [employer] Address [address] [place] [address] Care Team Providers Care Allergist/Pediatric Pulmonologist Name Role Phone Teresita Munroe DO Primary Care Provider Encounter Details Date Type Department Care Team (Late st Contact Info) Description 06/15/2022 Abstract [facility] [address] [place] [address] Jelena Morgan, CRISELDA [address] [place] [address] Social History Tobacco Use Types Packs/Day Years [...] on filedocumented in this encounter Care Teams Allergist/Pediatric Pulmonologist Relationship Specialty Start Date End Date Teresita Munroe DO [address] [place] [address] PCP - General Family Medicine 07/28/14 documented as of this encounter
== END 2024-10-30 12:18 | disposition home or self-care (01) ==
LOC: HO.RHE 11:48
PROVIDERS: PCP Family Medicine; Visit Provider Student in an Organized Health Care Education/Training Program
DX: M06.09 Rheumatoid arthritis without rheumatoid factor, multiple sites (principal); M81.0 Age-related osteoporosis without current pathological fracture; Z51.81 Encounter for therapeutic drug level monitoring; Z79.620 Long term (current) use of immunosuppressive biologic; Z79.631 Long term (current) use of antimetabolite agent
CPT/HCPCS: 99213; G2211

== ENCOUNTER → 2024-10-30 11:48 | Outpatient (BNVA) | payer OTHER, SELFPAY | PROVIDERS: PCP Family Medicine; Visit Provider Student in an Organized Health Care Education/Training Program | DX: M06.09 Rheumatoid arthritis without rheumatoid factor, multiple sites (principal); M81.0 Age-related osteoporosis without current pathological fracture; Z51.81 Encounter for therapeutic drug level monitoring; Z79.620 Long term (current) use of immunosuppressive biologic; Z79.631 Long term (current) use of antimetabolite agent; Z79.899 Other long term (current) drug therapy | CPT/HCPCS: 99212 ==

== ENCOUNTER 2024-12-11 08:58 | Outpatient (REF) | payer OTHER, SELFPAY ==
[2024-12-11 09:10] LABS: MANUAL DIFF FLAG NO
[2024-12-11 09:14] LABS: Hematocrit 37.8 % (37.0-47.0); Hemoglobin 12.9 g/dl (12.0-16.0); Imm Gran Abs Auto 0.02 X10*3/uL (0.00-0.03); Imm Gran Pct Auto 0.4 % (0.0-0.4); Lymphocytes Absolute Auto 1.7 X10*3/uL (1.2-4.9); Mean Corpuscular HGB Conc 34.1 g/dl (31.0-35.0); Mean Corpuscular Hemoglobin 31.3 pg (27.0-33.0); Mean Corpuscular Volume 91.7 fL (80.0-98.0); NRBC Abs Auto 0.000 X10*3/uL (0.0-0.012); NRBC Pct Auto 0.0 /100WBC (0.0-0.2); Platelet Count 162 X10*3/uL (160-400); Red Blood Count 4.12 X10*6/uL (4.20-5.50); White Blood Count 5.0 X10*3/uL (4.8-10.8)
--- OUTSIDE RECORDS SUMMARY | 2024-12-11 09:20 | XMS_ITS | Encounter Summary ---
Author Organization [employer] Address [address] [place] [address] Care Team Providers Care Geospatial Imagery Intelligence Analyst Name Role Phone Teresita Munroe DO Primary Care Provider Encounter Details Date Type Department Care Team ([facility] Contact Info) Description 06/15/2022 Abstract [facility] [address] [place] [address] Jelena Morgan DDS [address] [place] [address] Social History Tobacco Use Types Packs/Day Years [...] Department Care Team (Late Contact Info) Description 12/22/2024 10:00 AM EDT Clinical Support [facility] [address] [place] [address] Ana Beach RN documented as of this encounter Visit Diagnoses Not on filedocumented in this encounter Care Teams Geospatial Imagery Intelligence Analyst Relationship Specialty Start Date End Date Teresita Munroe DO [address] [place] [address] PCP - General Family Medicine 07/28/14 documented as of this encounter
[2024-12-11 09:28] LABS: Alanine Aminotransferase 23 U/L (0-31); Albumin Level 3.9 g/dL (3.5-5.0); Alkaline Phosphatase 83 U/L (39-117); Anion Gap 10 (12-20); Aspartate Amino Transferase 34 U/L (5-31); Blood Urea Nitrogen 12 mg/dL (9-16); Calcium 9.5 mg/dL (8.4-10.2); Carbon Dioxide 27 mmol/L (22-29); Chloride 110 mmol/L (96-108); Cholesterol 165 mg/dL (<200); Estimated Glomerular Filt Rate > 60; HDL Cholesterol 35 mg/dL (>40); Potassium 3.7 mmol/L (3.3-5.1); Sodium 143 mmol/L (135-145); Total Protein 7.0 g/dL (6.5-8.0); Triglycerides 301 mg/dL (<150)
[2024-12-11 09:52] LABS: HBS Num1 395.77 mIU/mL (0-7.99); HBc Num1 0.13 S/CO (0.00-0.79); HBsAGNum1 0.50 S/CO (0.00-0.99); Hepatitis A Antibody IgM 0.26 Index (0-0.79); Hepatitis B Surface Antigen Negative (Negative); ~HepC Num1 0.25 S/CO (0.00-0.79); ~Hepatitis A Antibody IgM Nonreactive (Nonreactive); ~Hepatitis B Surface Antibody REACTIVE (Nonreactive); ~Hepatitis C Antibody Nonreactive (Nonreactive)
[2024-12-14 15:38] LABS: TS Negative Control Passed; TS Panel A 0; TS Panel B 0; TS Positive Control Passed; TSpotTB Negative (Negative)
== END 2024-12-11 08:59 | disposition home or self-care (01) ==
LOC: HO.LAB 08:58
PROVIDERS: Absent Provider Student in an Organized Health Care Education/Training Program; PCP Family Medicine; Visit Provider Student in an Organized Health Care Education/Training Program
DX: M06.09 Rheumatoid arthritis without rheumatoid factor, multiple sites (principal); Z79.899 Other long term (current) drug therapy
CPT/HCPCS: 36415; 80053; 80061; 85025; 85652; 86140; 86481; 86704; 86706; 86709; 86803; 87340

== ENCOUNTER 2024-12-16 10:16 | Outpatient (AMB) | payer OTHER, SELFPAY ==
[2024-12-16 10:21] VITALS: BP 110/58; PULSE 73; O2SAT 96; BMI 26.5
--- NOTE | 2024-12-16 10:21 | A.OFFVIS_ITS ---
Vital Signs 12/16/24 10:21 Height 5 ft 3 in Weight 149 lb 7.574 oz BMI 26.5 BP 110/58 L Blood Pressure Location Lt brachial Position Sitting Pulse 73 Pulse Source Pulse Oximeter Pulse Oximetry (%) 96 Oxygen Delivery Method Room Air Intake Visit Reasons: f/u osteoporosis Intake Note: Patient present today for osteoporosis follow up visit. 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 Name: Yarelis Information Interpreted: non-clinical & clinical Accompanied by: HAND FUR CLEANER Allergies lobster Allergy (Uncoded 12/16/24 10:25) Nausea and Vomiting Medication List - Last Reconciled 12/16/24 by Marisela Ayon MD acetaminophen ER 650 mg PO TID albuterol sulfate 90 mcg/actuation (Ventolin HFA) 2 puffs inhalation Q4-6H PRN aspirin 81 mg PO DAILY buspirone 1 tab PO BID calcium carbonate (Calcium 600) 600 mg PO DAILY cholecalciferol (vitamin D3) 25 mcg PO DAILY 3 months clopidogrel 75 mg PO DAILY diclofenac sodium 1% 1 ea topical QID docusate sodium 100 mg PO BID 14 days duloxetine 60 mg PO BID evolocumab (Repatha SureClick) 1 ea subcut Q14D evolocumab (Repatha SureClick) 140 mg subcut Q2W ezetimibe 10 mg PO DAILY fenofibrate 160 mg PO DAILY fexofenadine 180 mg PO DAILY fluticasone propion-salmeterol 500-50 mcg/dose 1 inh inhalation BID folic acid 1 mg PO DAILY gabapentin 300 mg PO DAILY ipratropium-albuterol 0.5 mg-3 mg(2.5 mg base)/3 mL mL inhalation lidocaine 5% 1 patch topical DAILY metformin ER 500 mg PO BID methotrexate sodium 7.5 mg (3 x 2.5 mg) PO QWEEK 90 days midodrine 1 tab PO BID montelukast 10 mg PO DAILY quetiapine 1 tab PO BEDTIME rosuvastatin 40 mg PO DAILY sodium chloride 0.65% (Deep Sea Nasal) 1 - 2 sprays intranasal Q2-3H PRN tramadol 1 tab PO BID PRN umeclidinium 62.5 mcg/actuation (Incruse Ellipta) 1 inh inhalation DAILY HPI Comments Details: 73-year-old female coming in today for follow up of osteoporosis. Here today with HAND [employer]ER. Most recent bone density scan done in February 2024 showed T-score of -2.8 at the lumbar spine with increase of 2.9% in her bone density compared to 2020. T- score of-2.5 at the femoral neck and T-score of -2.3 at the total hip with decrease of 3/0.7% bone density at the hip. Bone density from October 2020 showed T-score of-3 at the lumbar spine with decrease of 1.6% in bone density compared to 2013. T-score of -2 at the femoral neck and-2 in the total hip with increase of 11.6% in BMD compared to 2013. Post menopausal osteoporosis: Diagnosed in 2013 Was seeing an endo at [facility] 6-7 years ago , Fosamax from [id number]. Fracture History: none Height loss: 5' 4 curerrenlty , no loss Back pain: none Pharmacotherapeutic hx: Fosamax from [id number] Drug holiday from 2020 up until now Family history: mother had osteoporosis, no parent fractures hip Estrogen use: no HRT use Pregnancies: 4 alive births Menstrual hx: menopause 5o years, menarche 11-12 years , regular periods Secondary risk factors: Steroid use: has required many short courses of prednisone for RA and asthma. last course last week for an RA flare. Has had steroid injections twice 3 years ago. 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: Negative History of kidney stones or disease: negative PI Use: has history of gastritis , used to take PPI before, no acid reflux now Chronic inflammatory lung disease: Negative Chronic inflammatory bowel disease: Negative Daily calcium intake: drinks 3 cups of milk daily, yogurt twice a day, cheese twice a day also takes 600 mg of calcium BID Vitamin D intake: 2000 units daily Exercise:walks sometimes no fixed schedule, not much, like groceries Smoking history:quit smoking 12 years ago Dental: Has regular dental cleaning, no issues Labs from 04/09/2024 showed normal kidney function with GFR greater than 60, calcium of 9.8 with albumin of 4.1, phosphorus normal at 3.3, magnesium normal at 2.3. Bone specific alkaline phosphatase 16.1, CTX 400. Vitamin-D low at 19.8. PTH mildly elevated at 80.8. 24 hour urine calcium levels on the lower side at 68 mg for 24 hours. 04/14/2024: Vitamin-D was increased from 2000 units daily in supplements to 2500 units daily.plus 800 units in calcium supplement daily. HOWEVER IT IS VERY UNCLEAR HOW MUCH SHE IS TAKING BECAUSE HER MEDICATIONS COME IN A BOX AND I HAD SENT THE VITAMIN-D TO [facility] BUT THEY ARE TELLING ME THE PHARMACIES [facility] I AM NOT REALLY SURE IF SHE WAS GETTING THE EXTRA VITAMIN-D OR NOT. Labs from 07/07/2024: Showed calcium of 9.5 with albumin of 4, normal kidney function, vitamin-D still low at 12.7, PTH at 80.3. We put her on vitamin-D 97260 units weekly for 3 months and she completed the course in September 2024. Interval history She forgot to repeat blood work prior to this appointment no fractures or fall [place] [address] units for 3 months Jul to September 2024, now taking 1000 units daily Uptodate with dental cleaning , last done 6 months ago Drinking milk and eating more yogurt and cheese Calcium 600 mg daily Physical exam General: sitting comfortably in no acute distress HEENT: normocephalic/atraumatic, , moist oral mucosa Neck: supple, symmetrical, no thyromegaly , no dorsocervical or supraclavicular fat pads Cardiac: normal heart sounds Pulm: normal breath sounds B/L, no added breath sounds Abd: not distended, no tenderness Extremities: no edema, no signs of myxedema Neuro: AAO x3, Speech: normal, no facial droop, moving all 4 extremities Laboratory Tests 04/09/24 04/09/24 08:00 09:31 Sodium 143 Potassium 3.9 Creatinine 0.72 Estimated GFR > 60 Calcium 9.8 Phosphorus 3.3 Magnesium 2.3 Alk Phos Bone Specific 16.1 Total Protein 7.8 Total Protein (PEP) 7.2 Albumin 4.1 Albumin (PEP) 3.9 Dmsob-3-Imtbgdsfe 0.2 Ulaly-1-Ifglugidp 0.8 Dmcd-5-Brtqltbe 0.4 Uxix-9-Gdaegqgu 0.5 Gamma Globulins 1.4 Collgn I C-Telopeptide 400 25-OH Vitamin D Total 19.8 L TSH 1.20 Free T4 0.72 Free T4 (Dialysis) 0.7 L Thyroxine (T4) 6.1 Total T3 113 Thyroglobulin 15.4 T4-Binding Globulin 29.1 PTH Intact 80.8 H Urine Total Volume 950 Ur 24 Hour Volume 950 Ur Creatinine mg/dL 73.97 Ur Creatinine 24 Hour 0.72 Ur Calcium 24 Hr 68 Calcium/Creat 24 Hr 97 Ur Free Cortisol 24 Hr 4.9 Laboratory Tests 02/22/23 04/05/23 11/02/23 10:56 09:36 08:26 Creatinine 0.77 Estimated GFR > 60 Calcium 9.8 Alkaline Phosphatase 94 Albumin 4.0 1,25 Dihydroxy Vit D 53 1,25 Dihydroxy Vit D2 <8 1,25 Dihydroxy Vit D3 53 TSH 1.46 2.37 Free T4 0.71 0.64 L Laboratory Tests 07/07/24 07/07/24 13:29 13:33 Sodium 141 Potassium 4.0 Creatinine 0.72 Estimated GFR > 60 Calcium 9.5 Albumin 4.0 25-OH Vitamin D Total 12.7 L PTH Intact 80.3 H Bone density 02/13/24 BONE DENSITOMETRY CLINICAL INDICATION: Osteoporosis. COMPARISON: Previous BD dated 10/21/2020 and baseline BD dated 04/08/2010. TECHNIQUE: Using a [employer] DXA System (software version: 13.1) manufactured by [employer], dual-energy x-ray absorptiometry was performed of the lumbar spine and left hip. The images are of good technical quality. Summary results are attached. FINDINGS: LEFT FEMUR, NECK: Current: BMD 0.695 g/cm2, Z-score -0.8, T-score -2.5, osteoporosis. Prior: BMD 0.757 g/cm2. Baseline: BMD 0.619 g/cm2. LEFT FEMUR, TOTAL: Current: BMD 0.722 g/cm2, Z-score -0.8, T-score -2.3, osteopenia, 3.7% decrease from previous, 10.1% increase from baseline (<5% change is not significant). Prior: BMD 0.750 g/cm2. Baseline: BMD 0.656 g/cm2. AP SPINE L1-L4: Current: BMD 0.843 g/cm2, Z-score -1.4, T-score -2.8, osteoporosis, 2.9% increase from previous, 3.7% decrease from baseline (<5% change is not significant). Prior: BMD 0.819 g/cm2. Baseline: BMD 0.813 g/cm2. IDENTIFIED RISK FACTORS: Menopause, rheumatoid arthritis. HISTORY OF FRACTURE: None listed. MEDICATIONS: Calcium supplements or multivitamin, vitamin D. MM/XR DEXA axial skeleton IMPRESSION: 1. DIAGNOSIS: Osteoporosis based on the lowest T-score value of -2.8 in the lumbar spine applying World Health Organization criteria. 2. 10-YEAR FRACTURE RISK PREDICTION, FRAX: According to the guidelines, FRAX calculation should only be performed on patients in the osteopenia bone density category. Therefore, FRAX was not performed on this patient. BONE DENSITOMETRY 2020 CLINICAL INDICATION: Screening for osteoporosis. COMPARISON: Previous BD dated 12/25/2013 and baseline BD dated 04/08/2010. TECHNIQUE: Using a [employer] DXA System (software version: 13.1) manufactured by [employer], dual-energy x-ray absorptiometry was performed of the lumbar spine and left hip. The images are of good technical quality. Summary results are attached. FINDINGS: AP SPINE L1-L4: Current: BMD 0.819 g/cm2, Z-score -1.6, T-score -3.0, osteoporosis, 1.6% increase from previous, 0.7% increase from baseline (<5% change is not significant). Prior: BMD 0.832 g/cm2. Baseline: BMD 0.813 g/cm2. LEFT FEMUR, NECK: Current: BMD 0.757 g/cm2, Z-score -0.5, T-score -2.0, osteopenia. Prior: BMD 0.646 g/cm2. Baseline: BMD 0.619 g/cm2. LEFT FEMUR, TOTAL: Current: BMD 0.750 g/cm2, Z-score -0.7, T-score -2.0, osteopenia, 11.6% increase from previous, 14.3% increase from baseline (<5% change is not significant). Prior: BMD 0.672 g/cm2. Baseline: BMD 0.656 g/cm2. IDENTIFIED RISK FACTORS: Menopause. HISTORY OF FRACTURE: None listed. MEDICATIONS: Calcium supplements or multivitamin, vitamin D. MM/XR DEXA axial skeleton IMPRESSION: 1. DIAGNOSIS: Osteoporosis based on the lowest T-score value of -3.0 in the lumbar spine applying World Health Organization criteria. 2. 10-YEAR FRACTURE RISK PREDICTION, FRAX: Major osteoporotic fracture (clinical spine, forearm, hip or shoulder) 6.9%. Hip fracture 1.4%. [facility] Medical History Long-term use of Plaquenil Encounter for methotrexate monitoring Encounter for monitoring tocilizumab therapy Vitamin D deficiency Hypothyroxinemia Osteoarthritis (arthritis due to wear and tear of joints) Chronic venous insufficiency Subclavian artery stenosis Carotid arterial disease AAA (abdominal aortic aneurysm) Diabetes Elevated cholesterol COPD (chronic obstructive pulmonary disease) Asthma PVD (peripheral vascular disease) CAD (coronary artery disease) HTN (hypertension) Surgical History History of arthroplasty of right shoulder Hx of removal of cyst Hx of endoscopy History of colonoscopy Family History Father No problems noted. Mother Family history of high blood pressure Hx of type 1 diabetes mellitus Social History Are you a primary urgent care nurse practitioner to a significant other at home: No Do you presently have visiting nurse or other home services: Yes (HAND F[employer] CLEANER - daily) Alcohol intake: never Patient Tobacco Use Status: Former Tobacco user Tobacco use type: Cigarette service: No Current occupational status: disabled Current occupation: left hand Physical Exam Vital Signs: Last Vital Signs Pulse 73 12/16/24 10:21 BP 110/58 L 12/16/24 10:21 Pulse Ox 96 12/16/24 10:21 Oxygen Delivery Method Room Air 12/16/24 10:21 BMI result Body Mass Index 26.5 Assessment & Plan Assessment & Plan (1) Osteoporosis: Code(s): M81.0 - Age-related osteoporosis without current pathological fracture Category: Medical Qualifiers: Osteoporosis type: age-related Presence of current pathological fracture: without current pathological fracture Qualified Code(s): M81.0 - Age- related osteoporosis without current pathological fracture Plan: Patient with a history of osteoporosis diagnosed in , who was on alendronate from [id number]. This would make sense given that she had signif icant improvement in her bone density at the hip from 3334-6505 with an 11.6% increase in bone density at the hip. Her most recent bone density scan from February 2024 shows that she is still osteoporotic with osteoporosis at the lumbar spine with a T-score of -2.8 with a 2.9% increase in bone density of the lumbar spine compared to 202. Her lowest T-scores are around-3.4, - 3.5 and L2 and L4 respectively. Plus she even has some arthritis when I reviewed the images myself likely falsely elevating her bone density at the spine. Her bone density at the hip has decreased by 3.7% compared to 202 and she is still osteoporotic with T-score of -2.5 at the femoral neck, T-score is -2.3 at the total hip. Her risk factors for osteoporosis are age, being postmenopausal, steroid use, rheumatoid arthritis, family history of osteoporosis, petite physique. I discussed conservative measures including adequate calcium intake, adequate vitamin D levels as well as the role of weightbearing exercises in general being good for bone health. Labs from 04/09/2024 showed normal kidney function with GFR greater than 60, calcium of 9.8 with albumin of 4.1, phosphorus normal at 3.3, magnesium normal at 2.3. Bone specific alkaline phosphatase 16.1, CTX 400. Vitamin-D low at 19.8. PTH mildly elevated at 80.8. 24 hour urine calcium levels on the lower side at 68 mg for 24 hours. We put her on vitamin-D supplementation in April 2024, but it was not clear how much she was taking. Subsequently labs from July 2024 again showed vitamin-D was very low at 12.7. Normal calcium. . Still elevated at 80. Normal kidney function. She possibly has mild secondary hyperparathyroidism in the setting of vitamin-D deficiency[place] [address] units of vitamin-D weekly from July to September 2024. At this point I will repeat her blood test to look at vitamin-D and calcium and PTH levels. Hopefully her PTH is improved with vitamin-D supplementation. They forgot to do the blood work prior to appointment. She is now on vitamin D 1000 units daily. In addition to conservative management with calcium and vitamin D; I do believe she would benefit from antiresorptive therapy in terms of reducing future fracture risk. Since she was on Fosamax from [id number]. I, this is around 8 year of therapy so I would stay away from bisphosphonate and would consider Prolia for her. Her CTX is at 400s so not very elevated. However based on the bone density scan I still think she would benefit from antiresorptive therapy. I counseled regarding the mechanism of action, route of administration, common side effects as well as black box warnings particularly osteonecrosis of the jaw and atypical femur fracture of Prolia. We discussed all of this again today. She is willing to start Prolia if her lab results are normal. I will wait for her vitamin-D levels to come back, before starting her on Prolia. Discussed with the patient: Common side effects of Prolia include muscle and joint aches and pains, low calcium level which may happen if calcium and vitamin D intake is inadequate. So please need to take calcium and vitamin D regularly. Other side effects may include skin rash, skin or bladder infection. Very rare side effects include osteonecrosis of the jaw and femur fractures. Should you experience any side effects with Prolia, please let us know. Plan: -continue 3-4 servings of calcium rich foods daily -encouraged weight-bearing exercise with walking at least 25 to 30 minutes daily -do blood work with repeat calcium, vitamin-D, PTH levels -if vitamin-D levels have normalized, we will consider starting Prolia, if not normal we will wait for vitamin-D levels to be optimized before we begin therapy. -follow up in 8 weeks Plan I spent 30 minutes in reviewing the record, seeing the patient and documenting in the medical record. Coding Level of Care Code Est Pt Level 4 (39067) Diagnoses Age-related osteoporosis without current pathological fracture M81.0 Osteoporosis type: age-related Presence of current pathological fracture: without current pathological fracture Time Spent (min) 30
--- OUTSIDE RECORDS SUMMARY | 2024-12-16 11:23 | XMS_ITS | Encounter Summary ---
Author Organization [employer] Address [address] [facility] [address] [facility] [address] [place] [address] Care Team Providers Care Smoke Control Supervisor Name Role Phone Teresita Munroe DO Primary Care Provider Encounter Details Date Type Department Care Team ([facility] Contact Info) Description 06/15/2022 Abstract [facility] [address] [place] [address] Jelena Morgan DDS [address] [place] [address] Social History Tobacco Use Types Packs/Day Years [...] Description 12/22/2024 10:00 AM EDT Clinical Support [facility] [address] [place] [address] Ana Beach RN documented as of this encounter Visit Diagnoses Not on filedocumented in this encounter Care Teams Smoke Control Supervisor Relationship Specialty Start Date End Date Teresita Munroe DO [address] [place] [address] PCP - General Family Medicine 07/28/14 documented as of this encounter
== END 2024-12-16 10:42 | disposition home or self-care (01) ==
LOC: HO.ENCR 10:16
PROVIDERS: PCP Family Medicine; Visit Provider Student in an Organized Health Care Education/Training Program
DX: M81.0 Age-related osteoporosis without current pathological fracture (principal)
CPT/HCPCS: 99214

== ENCOUNTER 2024-12-16 10:16 | Outpatient (REF) | payer OTHER, SELFPAY ==
[2024-12-16 12:13] LABS: Parathyroid Hormone Intact 78.8 pg/mL (8.7-77.1)
[2024-12-16 12:28] LABS: Albumin Level 4.0 g/dL (3.5-5.0); Calcium 9.1 mg/dL (8.4-10.2); Estimated Glomerular Filt Rate > 60
[2024-12-17 15:43] LABS: Calcium, Ionized 5.2 mg/dL (4.7-5.5)
== END 2024-12-16 10:17 | disposition home or self-care (01) ==
LOC: HO.LAB 10:16
PROVIDERS: PCP Family Medicine; Visit Provider Student in an Organized Health Care Education/Training Program
DX: M81.0 Age-related osteoporosis without current pathological fracture (principal); R79.89 Other specified abnormal findings of blood chemistry
CPT/HCPCS: 36415; 82040; 82306; 82310; 82330; 82565; 83970; 84100; 99212

== ENCOUNTER 2024-12-27 10:03 | Emergency (ER) | payer OTHER, SELFPAY ==
--- NOTE | ~2024-12-27 | XR_ITS ---
CLINICAL HISTORY: Cough, shortness of breath 2 view chest x-ray Comparison: CR/SR - XR CHEST 2 VIEWS - 09/17/24 13:17 EDT Findings: The lungs are clear. No effusion or pneumothorax. Heart size is normal. Right shoulder total arthroplasty partially visualized. Osseous structures are otherwise unremarkable. IMPRESSION: 1. No acute findings. This document has been electronically signed by: Olvin Griffiths MD on 12/27/2024 11:54:42
[2024-12-27 10:11] VITALS: BP 145/65; PULSE 81; RESP 18; TEMP 36.9; O2SAT 96; BMI 25.8
--- NOTE | 2024-12-27 10:26 | ECG_ITS ---
Test Reason : ASTHMA Blood Pressure : */* mmHG Vent. Rate : 76 BPM Atrial Rate : 76 BPM P-R Int : 184 ms QRS Dur : 70 ms QT Int : 394 ms P-R-T Axes : 73 -1 38 degrees QTcB Int : 443 ms Normal sinus rhythm Normal ECG When compared with ECG of 04-Jan-2022 10:02, No significant change was found Referred By: Leann Smith Electronically Signed By: Rodney Erickson
--- NOTE | 2024-12-27 10:28 | ED.GENADULT ---
HPI - General Adult General Chief complaint: Asthma Stated complaint: Asthma and coughing alot Time Seen by Provider: 12/27/24 10:12 Source: patient Mode of arrival: ambulatory Limitations: no limitations History of Present Illness ED Provider: Leann Smith NP HPI narrative: Patient is a 74-year-old female who presents emergency department expressing concern for asthma exacerbation. Reports onset of symptoms yesterday with dry nonproductive cough and shortness of breath. She states that she has utilized her inhaler as well as her nebulizer without significant improvement. Denies any known sick contacts. Denies trauma, fevers, chills, sore throat, difficulty swallowing, neck pain, dizziness, lightheadedness, headache, chest pain, palpitations, cough, nausea, vomiting, abdominal pain, numbness or tingling of the extremities, recent lower extremity pain or swelling. Related Data Home Medications ?Medication ?Instructions ?Recorded ?Confirmed duloxetine 60 mg capsule,delayed 60 mg PO BID 06/01/20 12/16/24 release ezetimibe 10 mg tablet 10 mg PO DAILY 06/01/20 12/16/24 fenofibrate 160 mg tablet 160 mg PO DAILY 06/01/20 12/16/24 fexofenadine 180 mg tablet 180 mg PO DAILY 06/01/20 12/16/24 fluticasone 500 mcg-salmeterol 50 1 inh inhalation BID 06/01/20 12/16/24 mcg/dose blistr powdr for inhalation metformin 500 mg tablet,extended 500 mg PO BID 06/01/20 12/16/24 release 24 hr montelukast 10 mg tablet 10 mg PO DAILY 06/01/20 12/16/24 rosuvastatin 40 mg tablet 40 mg PO DAILY 06/01/20 12/16/24 clopidogrel 75 mg tablet 75 mg PO DAILY 11/05/20 12/16/24 albuterol sulfate 90 mcg/actuation 2 puff inhalation Q4-6H PRN 01/10/22 12/16/24 aerosol inhaler (Ventolin HFA) Wheezing buspirone 10 mg tablet 1 tab PO BID 01/10/22 12/16/24 ipratropium 0.5 mg-albuterol 3 mg ml inhalation 01/10/22 12/16/24 (2.5 mg base)/3 mL nebulization soln tramadol 50 mg tablet 1 tab PO BID PRN Pain 01/10/22 12/16/24 evolocumab 140 mg/mL subcutaneous 1 ea subcut Q14D 01/24/22 12/16/24 pen injector (Hortensia Vera) midodrine 2.5 mg tablet 1 tab PO BID 01/24/22 12/16/24 quetiapine 100 mg tablet 1 tab PO BEDTIME 01/24/22 12/16/24 acetaminophen 650 mg 650 mg PO TID 03/02/23 12/16/24 tablet,extended release aspirin 81 mg tablet,delayed 81 mg PO DAILY 03/02/23 12/16/24 release diclofenac sodium 1 % topical gel 1 ea topical QID 03/02/23 12/16/24 gabapentin 300 mg capsule 300 mg PO DAILY 03/02/23 12/16/24 lidocaine 5 % topical patch 1 patch topical DAILY 03/02/23 12/16/24 sodium chloride 0.65 % nasal spray 1 - 2 spray intranasal Q2-3H PRN 03/02/23 12/16/24 aerosol (Deep Sea Nasal) congestion umeclidinium 62.5 mcg/actuation 1 inh inhalation DAILY 03/02/23 12/16/24 blister powder for inhalation (Incruse Ellipta) evolocumab 140 mg/mL subcutaneous 140 mg subcut Q2W 03/21/24 12/16/24 pen injector (Hortensia Vera) denosumab 60 mg/mL subcutaneous 60 mg subcut [id number] 12/17/24 syringe (Prolia) Previous Rx's ?Medication ?Instructions ?Recorded docusate sodium 100 mg capsule 100 mg PO BID 14 days #28 caps 01/26/22 cholecalciferol (vitamin D3) 25 25 mcg PO DAILY 3 months #90 caps 10/20/24 mcg (1,000 unit) capsule folic acid 1 mg tablet 1 mg PO DAILY #90 tabs 11/21/24 calcium carbonate (Calcium 600) 600 mg PO DAILY #30 tabs 12/09/24 methotrexate sodium 2.5 mg tablet 7.5 mg (3 x 2.5 mg) PO QWEEK 90 12/18/24 days #39 tabs prednisone 20 mg tablet 40 mg (2 x 20 mg) PO DAILY #8 tabs 12/27/24 Allergies Allergy/AdvReac Type Severity Reaction Status Date / Time lobster Allergy Nausea and Uncoded 12/27/24 10:13 Vomiting Review of Systems Review of Systems: Yes all other systems are reviewed and are negative [facility] Past Medical History Attestation statement: The following information was validated with the patient. Source: old records reviewed Medical History Long-term use of Plaquenil Encounter for methotrexate monitoring Encounter for monitoring tocilizumab therapy Vitamin D deficiency Hypothyroxinemia Osteoarthritis (arthritis due to wear and tear of joints) Chronic venous insufficiency Subclavian artery stenosis Carotid arterial disease AAA (abdominal aortic aneurysm) Diabetes Elevated cholesterol COPD (chronic obstructive pulmonary disease) Asthma PVD (peripheral vascular disease) CAD (coronary artery disease) HTN (hypertension) Surgical History History of arthroplasty of right shoulder Hx of removal of cyst Hx of endoscopy History of colonoscopy Family History Family History Father No problems noted. 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 - daily) Alcohol intake: never Patient Tobacco Use Status: Former Tobacco user Tobacco use type: Cigarette Smoked in Last 30 Days: No Use of substances other than those prescribed or required for medical reasons: No Advance Directives: No Advance Directives Information Provided: Yes service: No Current occupational status: disabled Current occupation: left hand Physical Exam ED Vital Signs: Vital Signs - 24 hr 12/27/24 10:11 12/27/24 10:49 Temperature 98.5 F Pulse Rate 81 75 Respiratory Rate 18 18 Blood Pressure 145/65 H Pulse Oximetry 96 Oxygen Delivery Method Room Air BMI result Body Mass Index 25.8 Appearance: Alert.?Oriented to person, place and time. No acute distress.?Normal affect. Eyes: Pupils equal, round and reactive to light.? ENT: Pharynx normal.?? Neck: Normal inspection.? Neck supple.?? CVS: Heart sounds normal. Normal heart rate and rhythm.? Pulses normal.?? Respiratory: No respiratory distress.? Lung sounds with diffuse expiratory wheezing Abdomen: Soft and non-tender. Normoactive bowel sounds. Skin: Skin warm and dry.? Normal skin color.? Extremities: No lower extremity edema.? No calf ttp? Neuro: Moves all extremities spontaneously. Sensation intact bilaterally. No focal neuro deficits. Ambulates with normal steady gait. Medications Administered Discontinued Medications Generic Name Dose Route Start Last Admin Trade Name Mansoor PRN Reason Stop Dose Admin Albuterol Sulfate 2.5 mg/ 0 mg 12/27/24 10:44 12/27/24 10:47 Albuterol/Ipratropium 3 ml INHALE 12/27/24 10:45 1 dose ONCE ONE Administration Methylprednisolone Sodium Succinate 80 mg 12/27/24 10:26 12/27/24 11:12 Methylprednisolone Sod Succ 125 Mg/2 Ml Vial IVPUSH 12/27/24 10:27 80 mg ONCE ONE Administration Medical Decision Making Medical Decision Making [facility] Narrative: Patient is a 74-year-old female with past medical history of rheumatoid arthritis on Plaquenil, hypothyroid works anemia, chronic venous insufficiency, subclavian artery stenosis s/p angioplasty, carotid artery disease, AA, hyperlipidemia, hypertension, diabetes, fibromyalgia, asthma/COPD who presents emergency department for evaluation shortness of breath and dry nonproductive cough since yesterday as per HPI. Subjective believe he L so this is consistent with asthma exacerbations in the past. Not currently on steroids. No relief from home nebulizer or inhaler. She is speaking clear full sentences, no room-air hypoxia or tachypnea. On auscultation she has expiratory wheezing food out. No signs of systemic toxicity. Plan to obtain serum labs, CXR, ECG, placed orders for ED bronchodilator protocol in addition to Solu-Medrol. Currently without respiratory distress. No associated chest pain lower extremity redness pain or swelling in the history weekly/malignancy to suggest ACS/CHF/PE. Denies known history of arrhythmias. No trauma or injury to suggest pneumothorax. No known anemia associated dizziness fatigue or chest pain to suggest acute anemia. At this time favors asthma/COPD exacerbation. Differential Diagnosis Differential Diagnoses: The differential diagnosis associated with the presentation includes (See narrative above) Admission/Observation Consideration of admission/observation: Escalation of care including admission/observation considered Lab Data [facility] Lab Attestation statement: I reviewed the patient's lab results. CBC reveals a mild leukopenia 4600, no left shift, no anemia or thrombocytopenia. No significant electrolyte derangement. No KHARI. LFTs unremarkable. High sensitive troponin below detectable limits. Viral serologies are negative. 12/27/24 10:52 12/27/24 10:52 Labs: Lab Results 12/27/24 Range/Units 10:52 WBC 4.6 L (4.8-10.8) X10*3/uL RBC 4.27 (4.20-5.50) X10*6/uL Hgb 13.0 (12.0-16.0) g/dl Hct 38.9 (37.0-47.0) % MCV 91.1 (80.0-98.0) fL MCH 30.4 (27.0-33.0) pg MCHC 33.4 (31.0-35.0) g/dl RDW 12.6 (11.0-16.0) % Plt Count 174 (160-400) X10*3/uL MPV 10.7 (9.4-12.3) fL Immature Gran % (Auto) 0.2 (0.0-0.4) % Neut % (Auto) 50.7 (45-73) % Lymph % (Auto) 25.4 (20-40) % Archer % (Auto) 13.6 H (2-11) % Eos % (Auto) 8.8 H (0-4) % Baso % (Auto) 1.3 (0-2) % Lymph # (Auto) 1.2 (1.2-4.9) X10*3/uL Archer # (Auto) 0.6 (0.1-1.2) X10*3/uL Eos # (Auto) 0.4 (0.0-0.4) X10*3/uL Baso # (Auto) 0.1 (0.0-0.2) X10*3/uL Abs Immat Gran (auto) 0.01 (0.00-0.03) X10*3/uL Absolute Neuts (auto) 2.3 (2.0-8.3) x10*3/uL Absolute Nucleated RBC 0.000 (0.0-0.012) X10*3/uL Nucleated RBC % (auto) 0.0 (0.0-0.2) /100WBC Sodium 144 (135-145) mmol/L Potassium 3.9 (3.3-5.1) mmol/L Chloride 110 H (96-108) mmol/L Carbon Dioxide 25 (22-29) mmol/L Anion Gap 13 (12-20) BUN 7 L (9-16) mg/dL Creatinine 0.70 (0.5-1.4) mg/dL Estim Creat Clear Calc 63.4 Estimated GFR > 60 Random Glucose 120 H (60-115) mg/dL Calcium 9.2 (8.4-10.2) mg/dL Magnesium 2.1 (1.6-2.6) mg/dL Total Bilirubin 0.4 (0.0-1.0) mg/dL AST 29 (5-31) U/L ALT 28 (0-31) U/L Alkaline Phosphatase 79 (39-117) U/L Troponin I High Sens < 2.7 (<3.5-17.0) ng/L Total Protein 7.3 (6.5-8.0) g/dL Albumin 4.2 (3.5-5.0) g/dL Influenza Type A (PCR) NEGATIVE (Negative) Influenza Type B (PCR) NEGATIVE (Negative) RSV RNA Qual (PCR) NEGATIVE (Negative) SARS-CoV-2 RNA (RT-PCR) NEGATIVE (Negative) Independent Interpretation I performed an independent interpretation of an: EKG (Normal sinus rhythm ventricular rate of 76, normal PRATIMA, QTC 443 MS, no ST-elevation) and Plain X-Ray (No consolidation infiltrate to suggest pneumonia, no pleural effusions to suggest CHF.) Radiology Impression Discussion of test interpretation with radiology: I have reviewed the radiologist's reading. Radiologist Impression: 2 view chest x-ray Comparison: CR/SR - XR CHEST 2 VIEWS - 09/17/24 13:17 EDT Findings: The lungs are clear. No effusion or pneumothorax. Heart size is normal. Right shoulder total arthroplasty partially visualized. Osseous structures are otherwise unremarkable. IMPRESSION: 1. No acute findings. External Record Review External record reviewed: Outpatient record Chronic Conditions Patient?s care impacted by: Other (See narrative above) Discharge Plan Discharge Clinical Impression: Asthma exacerbation Patient Disposition: Home, Self-Care Instructions: Asthma (ED) Additional Instructions: A prescription for prednisone has been sent to your pharmacy you received steroids through the IV while in the emergency department today. Please take the prednisone by mouth starting tomorrow morning. Take with food to prevent stomach upset. Continue use of your inhaler and nebulizer machine as prescribed. Follow-up with your primary care doctor. Return to emergency department any new or worsening symptoms or concerns which includes but is not limited to worsening shortness of breath, difficulty breathing, fevers, chills, chest pain, dizziness lightheadedness, near passing out, numbness or tingling of the extremities. Prescriptions: New prednisone 20 mg tablet 40 mg PO DAILY Qty: 8 0RF No Action cholecalciferol (vitamin D3) 25 mcg (1,000 unit) capsule 25 mcg PO DAILY 90 Days Qty: 90 2RF folic acid 1 mg tablet 1 mg PO DAILY Qty: 90 1RF calcium carbonate [Calcium 600] 600 mg calcium (1,500 mg) tablet 600 mg PO DAILY Qty: 30 6RF Prolia 60 mg/mL syringe 60 mg subcut [id number] methotrexate sodium 2.5 mg tablet 7.5 mg PO QWEEK 90 Days Qty: 39 1RF clopidogrel 75 mg tablet 75 mg PO DAILY ipratropium-albuterol 0.5 mg-3 mg(2.5 mg base)/3 mL solution for nebulization INHALATION tramadol 50 mg tablet 1 tab PO BID PRN (Reason: Pain) buspirone 10 mg tablet 1 tab PO BID albuterol sulfate [Ventolin HFA] 90 mcg/actuation HFA aerosol inhaler 2 puff inhalation Q4-6H PRN (Reason: Wheezing) quetiapine 100 mg tablet 1 tab PO BEDTIME midodrine 2.5 mg tablet 1 tab PO BID Repatha SureClick 140 mg/mL pen injector 1 ea subcut Q14D docusate sodium 100 mg Capsule 100 mg PO BID 14 Days Qty: 28 0RF fenofibrate 160 mg tablet 160 mg PO DAILY duloxetine 60 mg capsule,delayed release(DR/EC) 60 mg PO BID rosuvastatin 40 mg tablet 40 mg PO DAILY metformin 500 mg tablet extended release 24 hr 500 mg PO BID ezetimibe 10 mg tablet 10 mg PO DAILY montelukast 10 mg tablet 10 mg PO DAILY fluticasone propion-salmeterol 500-50 mcg/dose blister with device 1 inh inhalation BID fexofenadine 180 mg tablet 180 mg PO DAILY aspirin 81 mg tablet,delayed release (DR/EC) 81 mg PO DAILY Deep Sea Nasal 0.65 % aerosol,spray 1 - 2 spray intranasal Q2-3H PRN (Reason: congestion) acetaminophen 650 mg tablet extended release 650 mg PO TID Incruse Ellipta 62.5 mcg/actuation blister with device 1 inh inhalation DAILY lidocaine 5 % adhesive patch,medicated 1 patch topical DAILY gabapentin 300 mg capsule 300 mg PO DAILY diclofenac sodium 1 % gel 1 ea topical QID Repatha SureClick 140 mg/mL pen injector 140 mg subcut Q2W Referrals: Teresita Munroe DO [Primary Care Provider, Internal Medicine] Print Language: Urdu
[2024-12-27] MEDS: Albuterol Sulfate 2.5 MG, Albuterol/Iprat 2.5/0.5MG 3 ML 3 ML INHALE (10:47)
[2024-12-27 10:49] VITALS: PULSE 75; RESP 18; O2SAT 97
--- OUTSIDE RECORDS SUMMARY | 2024-12-27 10:52 | XMS_ITS | Clinical Summary ---
Author Organization [facility] Address [address] [address] Phone Care Team Providers Care Dispatcher Street Department Name Role Phone Teresita Munroe DO Primary Care Provider Social History Tobacco Use Types Packs/Day Years Used Date Smoking Tobacco: Never Assessed Education Answer Date Recorded Are you interested in more education? Not on yary e 09/29/2022 Are you concerned about learning? Not on file 09/29/2022 No 09/29/2022 No 09/29/2022 Digital Access Answer Date Recorded No 10/30/2022 No 10/30/2022 No 10/30/2022 Reliable internet access at home? Not on file 10/30/2022 Device with a working camera? Not on file Comments Unknown Sex and Gender Information Value Date Recorded Sex Assigned at Not on file Legal Sex Female 10:37 PM EDT Gender Identity Not on file Sexual Orientation Not on file Last Filed Vital Signs Vital Sign Reading Time Taken Comments Blood Pressure 148/80 01/10/2022 11:33 AM EDT Pulse - - Temperature - - Respiratory Rate - - Oxygen Saturation 98% 01/10/2022 11:00 AM EDT Inhaled Oxygen Concentration - - Weight - - Height - - Body Mass Index - - Plan of Treatment Health Maintenance Due Date Last Done Comments LIPID PANEL 1949 DEPRESSION SCREENING 1961 SMOKING Hx and SMOKELESS TOBACCO SCREENING 1962 HEPATITIS C SCREENING 1967 COLOGUARD 1994 COLONOSCOPY 1994 COLORECTAL CANCER SCREENING 1994 FIT TEST 1994 FOBT 1994 SIGMOIDOSCOPY 1994 VIRTUAL COLONOSCOPY 1994 OSTEOPOROSIS SCREENING INITIAL (ONE-TIME) 2014 ZOSTER VACCINES (3 of 3) 10/17/2021 08/22/2021, 11/07/2014 Adult Td,Tdap Booster 12/17/2022 12/17/2012, 007 COVID-19 VACCINE ( season) 2024 05/09/2021, 09/09/2020, 08/12/2020, Additional history exists RSV VACCINE (1 - 1-dose 75+ series) 2024 PNEUMOCOCCAL VACCINES (50+ years) Completed 09/28/2016, 04/05/2015, 03/21/2012, Additional history exists HEPATITIS A VACCINES Aged Out No long er eligible based on patient's age to complete this topic HIB VACCINES Aged Out No longer eligi ble based on patient's age to complete this topic MENINGOCOCCAL VACCINES (ACWY) Aged Out No longer eligible based on patient's age to complete this topic MENINGOCOCCAL VACCINES (B) Aged Out N o longer eligible based on patient's age to complete this topic Medical Devices Not on [place] [address] [place] [address] MEDICARE REPLACEMENT [employer] [id number] [facility] MEDICARE REPLACEMENT [place] [address] [place] [address] MEDICARE REPLACEMENT [facility] [place] [address] [place] [address] [place] [address] MEDICARE REPLACEMENT [facility] MEDICARE REPLACEMENT Care Teams Dispatcher Street Department Relationship Specialty Start Date End Date Teresita Munroe DO [address] [place] [id number] PCP - General Family Medicine 01/03/22 Additional Source Comments The information contained in this document represents components of the legal health record. It is not the complete legal health record.[facility]
--- OUTSIDE RECORDS SUMMARY | 2024-12-27 10:52 | XMS_ITS | Encounter Summary ---
Author Organization [employer] Address [address] [facility] [address] [place] [address] Care Team Providers Care Bearing Press Machine Operator Name Role Phone Teresita Munroe DO Primary Care Provider [phone] Reason for Visit * Reason Onset Date Comments Durable Medical Equipment 12/26/2024 Encounter Details Date Type Department Care Team (Late st Contact Info) Description 12/26/2024 Telephone [facility] [address] [place] [address] Teresita Munroe DO [address] [place] [address] Durable Medical Equipment Social History Tobacco Use Types Packs/Day Years [...] encounter Miscellaneous Notes * Telephone Encounter - Jeff Fraser - 12/26/2024 3:57 PM EDT Tc from Aleida Cabral from [facility] calling to request a DME order for bed rails and a rolator walker. Faxed [facility] at [phone] Contact Aleida Cabral at [phone] ext [phone] documented in this encounter Plan of Treatment Not on file documented as of this encounter Visit Diagnoses Not on filedocumented in this encounter Additional Health Concerns Assessment Noted Time PHQ-9 Depression Total Score: 5 01/22/20 9:55 AM EDT documented as of this encounter Care Teams Bearing Press Machine Operator Relationship Specialty Start Date End Date Teresita Munroe DO [address] [place] [address] PCP - General Family Medicine 07/28/14 documented as of this encounter
[2024-12-27 10:57] LABS: MANUAL DIFF FLAG NO
[2024-12-27 11:01] LABS: Hematocrit 38.9 % (37.0-47.0); Hemoglobin 13.0 g/dl (12.0-16.0); Imm Gran Abs Auto 0.01 X10*3/uL (0.00-0.03); Imm Gran Pct Auto 0.2 % (0.0-0.4); Lymphocytes Absolute Auto 1.2 X10*3/uL (1.2-4.9); Mean Corpuscular HGB Conc 33.4 g/dl (31.0-35.0); Mean Corpuscular Hemoglobin 30.4 pg (27.0-33.0); Mean Corpuscular Volume 91.1 fL (80.0-98.0); NRBC Abs Auto 0.000 X10*3/uL (0.0-0.012); NRBC Pct Auto 0.0 /100WBC (0.0-0.2); Platelet Count 174 X10*3/uL (160-400); Red Blood Count 4.27 X10*6/uL (4.20-5.50); White Blood Count 4.6 X10*3/uL (4.8-10.8)
[2024-12-27 11:13] LABS: Alanine Aminotransferase 28 U/L (0-31); Albumin Level 4.2 g/dL (3.5-5.0); Alkaline Phosphatase 79 U/L (39-117); Anion Gap 13 (12-20); Aspartate Amino Transferase 29 U/L (5-31); Blood Urea Nitrogen 7 mg/dL (9-16); Calcium 9.2 mg/dL (8.4-10.2); Carbon Dioxide 25 mmol/L (22-29); Chloride 110 mmol/L (96-108); Creatinine Clr Calc Pharmacy 63.4; Estimated Glomerular Filt Rate > 60; Magnesium 2.1 mg/dL (1.6-2.6); Potassium 3.9 mmol/L (3.3-5.1); Sodium 144 mmol/L (135-145); Total Protein 7.3 g/dL (6.5-8.0)
[2024-12-27 11:24] LABS: Troponin-I High Sensitivity < 2.7 ng/L (<3.5-17.0)
[2024-12-27 11:34] LABS: Resp Syncy Virus RNA Qual PCR NEGATIVE (Negative); SARS COV2 PCR INHOUSE NEGATIVE (Negative)
[2024-12-27 12:13] VITALS: BP 131/51; PULSE 92; RESP 12; TEMP 36.8; O2SAT 97
[2024-12-27 12:31] VITALS: BP 131/51; PULSE 92; RESP 12; TEMP 36.8; O2SAT 97
== END 2024-12-27 12:33 | disposition home or self-care (01) ==
PROVIDERS: Nurse Practitioner Family; Emergency Provider Emergency Medicine; PCP Family Medicine
DX: J45.901 Unspecified asthma with (acute) exacerbation (principal); Z03.818 Encounter for observation for suspected exposure to other biological agents ruled out; R05.9 Cough, unspecified
CPT/HCPCS: 71046; 80053; 83735; 84484; 85025; 87637; 93005; 94640; 96374; 99284; 99285; J2919

== ENCOUNTER → 2024-12-27 10:26 | Outpatient (BNV) | payer OTHER, SELFPAY | PROVIDERS: Emergency Provider Emergency Medicine; PCP Family Medicine; Visit Provider Internal Medicine Cardiovascular Disease | DX: J45.909 Unspecified asthma, uncomplicated (principal) | CPT/HCPCS: 93010 ==

== ENCOUNTER → 2024-12-27 10:27 | Outpatient (BNV) | payer OTHER, SELFPAY | PROVIDERS: Emergency Provider Emergency Medicine; PCP Family Medicine; Visit Provider Radiology Diagnostic Radiology | DX: R06.02 Shortness of breath (principal) | CPT/HCPCS: 71046 ==

== ENCOUNTER 2024-12-31 10:10 | Outpatient (AMB) | payer OTHER, SELFPAY ==
--- NOTE | 2024-12-31 10:36 | AM.OFFVISNUR ---
Intake Visit Reasons: Prolia injection #1 Allergies lobster Allergy (Uncoded 12/27/24 10:13) Nausea and Vomiting Office Meds Prolia 60 mg/mL subcutaneous syringe Performing Provider: Marisela Ayon MD Performing Location: [facility] Endocrinology Administered by: Zee Lewis RN on 12/31/24 10:37 Dose Route Admin Location Dispensed Lot Number Expiration Date NDC Bottle House Quality Control Technician 60 mg subcut right upper arm 1 mL [id number] 06/03/27 53914-667-03 [facility] Total Dispensed Waste 1 mL 0 % Comments: Pt accompanied by DIRECTOR MERIT SYSTEM who interpreted visit. Pt declined translator and interpreter. Pt tolerated injection well. Went over common side effects with pt like muscle aches and joint pains and site reactions such as redness and swelling and a slight bump that should resolve over time. I advised her to call the office if she starts experiencing any of the above symptoms and also advised her to continue to take vitamin D and calcium while on this medication. Pt confirmed understanding with no further questions at this time. Pt stayed for 15 mins after administration to watch for any immediate reactions. Assessment & Plan Assessment & Plan Orders: Orders AMB Denosumab Injection Practice Supplied Today M81.0 - Age-related osteoporosis without current pathological fracture Coding
--- OUTSIDE RECORDS SUMMARY | 2024-12-31 10:59 | XMS_ITS | Encounter Summary ---
Author Organization [employer] Address [address] [facility] [address] [place] [address] Care Team Providers Care Entry Level Lab Technician Name Role Phone Teresita Munroe DO Primary Care Provider [phone] Reason for Visit * Reason Onset Date Comments Durable Medical Equipment 12/26/2024 Encounter Details Date Type Department Care Team (Late st Contact Info) Description 12/26/2024 Telephone [facility] [address] [place] [address] Teresita Munroe DO [address] [place] [address] Durable Medical Equipment Social History Tobacco Use [...] PM EDT Tc from Aleida Cabral from [facility] calling to request a DME order for bed rails and a rolator walker. Faxed [facility] [employer] [facility] at [phone] Contact Aleida Cabral at [phone] ext [phone] documented in this encounter Plan of Treatment Not on file documented as of this encounter Visit Diagnoses Not on filedocumented in this encounter Additional Health Concerns Assessment Noted Time PHQ-9 Depression Total Score: 5 01/22/20 9:55 AM EDT documented as of this encounter Care Teams Entry Level Lab Technician Relationship Specialty Start Date End Date Teresita Munroe DO [address] [place] [address] PCP - General Family Medicine 07/28/14 documented as of this encounter
--- OUTSIDE RECORDS SUMMARY | 2024-12-31 10:59 | XMS_ITS | Clinical Summary ---
Author Organization [facility] Address [address] [address] Phone Care Team Providers Care Leakage Tester Name Role Phone Teresita Munroe DO Primary [...] topic Medical Devices Not on file [place] [address] [place] [address] MEDICARE REPLACEMENT [employer] [place] [id number] [facility] MEDICARE REPLACEMENT [place] [address] [place] [address] MEDICARE REPLACEMENT [facility] [place] [address] [place] [address] [place] [address] MEDICARE REPLACEMENT [facility] MEDICARE REPLACEMENT Care Teams Leakage Tester Relationship Specialty Start Date End Date Teresita Munroe DO [address] [place] [id number] PCP - General Family Medicine 01/03/22 Additional Source Comments The information contained in this document represents components of the legal health record. It is not the complete legal health record.[facility]
== END 2024-12-31 10:43 | disposition home or self-care (01) ==
LOC: HO.ENCR 10:11
PROVIDERS: PCP Family Medicine; Visit Provider Student in an Organized Health Care Education/Training Program
DX: M81.0 Age-related osteoporosis without current pathological fracture (principal)

== ENCOUNTER → 2024-12-31 10:10 | Outpatient (BNVA) | payer OTHER, SELFPAY | PROVIDERS: PCP Family Medicine; Visit Provider Student in an Organized Health Care Education/Training Program | DX: M81.0 Age-related osteoporosis without current pathological fracture (principal) | CPT/HCPCS: 96372; J0897 ==

== ENCOUNTER 2025-01-21 10:24 | Outpatient (REF) | payer OTHER, SELFPAY ==
--- NOTE | ~2025-01-21 | XR_ITS ---
EXAMINATION: XR CHEST CLINICAL INFORMATION: COPD exacerbation COMPARISON: December 27, 2024 TECHNIQUE: 2 views of the chest were obtained. FINDINGS: Pulmonary reticular pattern. Bilateral apical lung scarring. No consolidation, pleural effusion or pneumothorax. Cardiomediastinal silhouette size is normal. Calcified plaque thoracic Aaron. Osteopenia versus osteoporosis. Multilevel spondylosis. 20% volume loss of the vertebral bodies in the mid to lower thoracic spine probably old. Sclerotic trabeculated abnormality in the left humeral head. There is a metallic prosthesis in the right humeral head. XR/XR chest 2V IMPRESSION: Chronic interstitial lung disease without acute airspace disease. Old traumatic deformity versus severe degenerative changes in the left humeral head. Multilevel spondylosis with likely old 20% compression deformities in the vertebral bodies, thoracic spine. Electronically signed by: Sky Holland MD 01/21/2025 12:22 PM EDT
--- OUTSIDE RECORDS SUMMARY | 2025-01-21 11:39 | XMS_ITS | Clinical Summary ---
Author Organization [facility] Address [address] [address] Phone Care Team Providers Care Reinforcing Iron And Rebar Workers Name Role Phone Gabriella Munroefer Primary Care Provider Social History Tobacco Use [...] topic Medical Devices Not on file [place] [place] [address] MEDICARE REPLACEMENT [employer] [id number] [facility] MEDICARE REPLACEMENT [place] [address] [place] [address] MEDICARE REPLACEMENT [facility] [place] [address] [place] [address] [place] [id number] MEDICARE REPLACEMENT [facility] SCO MEDICARE REPLACEMENT Care Teams Reinforcing Iron And Rebar Workers Relationship Specialty Start Date End Date Teresita Munroe DO [address] [place] [id number] PCP - General Family Medicine 01/03/22 Additional Source Comments The information contained in this document represents components of the legal health record. It is not the complete legal health record.[facility]
== END 2025-01-21 10:25 | disposition home or self-care (01) ==
LOC: HO.HHCX 10:24
PROVIDERS: Visit Provider Internal Medicine
DX: J44.1 Chronic obstructive pulmonary disease with (acute) exacerbation (principal)
CPT/HCPCS: 71046

== ENCOUNTER → 2025-01-21 10:25 | Outpatient (BNV) | payer OTHER, SELFPAY | PROVIDERS: Visit Provider Radiology Diagnostic Radiology | DX: J44.1 Chronic obstructive pulmonary disease with (acute) exacerbation (principal) | CPT/HCPCS: 71046 ==

== ENCOUNTER 2025-02-05 13:48 | Outpatient (REF) | payer OTHER, SELFPAY ==
--- NOTE | ~2025-02-05 | XR_ITS ---
CLINICAL HISTORY: M25.519 - Pain in unspecified shoulder 3 view right shoulder Comparison: DX/SR - XR SHOULDER 2 OR MORE VIEWS RIGHT - 04/20/22 11:11 EST Findings: Osteopenia. No acute fracture or malalignment. Redemonstrated right shoulder arthroplasty. Hardware is intact, alignment is maintained. Moderate osteoarthritis of the AC joint. No erosions. No radiopaque foreign body. IMPRESSION: Stable chronic changes without acute fracture. This document has been electronically signed by: Rick Oneill MD on 02/05/2025 19:06:45
--- OUTSIDE RECORDS SUMMARY | 2025-02-05 15:04 | XMS_ITS | Clinical Summary ---
Author Organization [facility] Address [address] [address] Phone Care Team Providers Care Information Clerk Cashier Name Role Phone Teresita uMnroe DO Primary Care Provider Social History Tobacco [...] topic Medical Devices Not on file [place] [place] [place] [address] MEDICARE REPLACEMENT [employer] [id number] [facility] MEDICARE REPLACEMENT [place] [address] [place] [address] MEDICARE REPLACEMENT [facility] [place] [id number] [place] [address] [place] [id number] MEDICARE REPLACEMENT [facility] MEDICARE REPLACEMENT Care Teams Information Clerk Cashier Relationship Specialty Start Date End Date Teresita Munroe DO [address] [place] [id number] PCP - General Family Medicine 01/03/22 Additional Source Comments The information contained in this document represents components of the legal health record. It is not the complete legal health record.[facility]
--- OUTSIDE RECORDS SUMMARY | 2025-02-05 15:04 | XMS_ITS | Encounter Summary ---
Author Organization [employer] Address [address] [facility] 7t [place] [address] Care Team Providers Care Retort Pre Cooker Name Role Phone Teresita Munroe DO Primary Care Provider Encounter Details Date Type Department Care Team ([facility] Contact Info) Description 08/03/[address] [facility] ADULT DENTAL [address] [place] [address] Bhanu Barakat DDS [address] [place] [address] Social History Tobacco Use Types Packs/Day Years [...] Department Care Team (Late Contact Info) Description 04/10/2025 9:[address] [facility] MEDICINE [address] [place] [address] Ana Beach RN documented as of this encounter Visit Diagnoses Not on filedocumented in this encounter Care Teams Retort Pre Cooker Relationship Specialty Start Date End Date Teresita Munroe DO [address] [place] [address] PCP - General Family Medicine 07/28/14 documented as of this encounter
--- OUTSIDE RECORDS SUMMARY | 2025-02-05 15:04 | XMS_ITS | Encounter Summary ---
Author Organization [employer] Address [address] [facility] 7t [place] [address] Care Team Providers Care Snow Plow Tractor Operator Name Role Phone Teresita Munroe DO Primary Care Provider [phone]- [phone] Reason for Visit * Reason Onset Date Comments Durable Medical Equipment 02/04/2025 Encounter Details Date Type Department Care Team (Late st Contact Info) Description 02/04/2025 Telephone [facility] MEDICINE [address] [place] [address] Teresita Munroe DO [address] [place] [address] Durable Medical Equipment Social History Tobacco Use [...] Answer Date Recorded Internet Access Q1 Yes 01/12/2025 Internet Access Q2 Not on file 01/12/2025 Comments No Sex and Gender Information Value Date Recorded Sex Assigned at Female 04/03/2022 10:18 AM EDT Legal Sex Female 10:18 AM EDT Gender Identity Female 04/03/2022 10:18 AM EDT Sexual Orientation Straight 04/03/2022 10 :18 AM EDT documented as of this encounter Miscellaneous Notes * Telephone Encounter - Kelly Amaro - 02/04/2025 11:53 AM EDT Tc from [facility] with [facility] requesting a new scrip for DME - Walker Rolator with seat - 3 pack of baby wipes x month To be sent to: - [facility] [address] [place] [address] [address] [facility] documented in this encounter Plan of Treatment Upcoming Encounters Date Type Department Care Team (Late st Contact Info) Description 04/10/2025 9:00 AM EST Telemedicine [facility] MEDICINE [address] [place] [address] Ana Beach RN documented as of this encounter Visit Diagnoses Not on filedocumented in this encounter Additional Health Concerns Assessment Noted Time PHQ-9 Depression Total Score: 5 01/22/20 24 9:55 AM EDT documented as of this encounter Care Teams Snow Plow Tractor Operator Relationship Specialty Start Date End Date Teresita Munroe DO [address] [place] [address] PCP - General Family Medicine 07/28/14 documented as of this encounter
--- OUTSIDE RECORDS SUMMARY | 2025-02-05 15:04 | XMS_ITS | Encounter Summary ---
Author Organization [employer] Address [address] [facility] [address]t h Floor [place] [id number] Care Team Providers Care Manager Programming Name Role Phone Teresita Munroe DO Primary Care Provider Encounter Details Date Type Department Care Team ([facility] Contact Info) Description 06/15/2022 Abstract [facility] ADULT DENTAL [address] [place] [address] Jelena Morgan DDS [address] [place] [address] Social History Tobacco Use Types Packs/Day Years [...] Info) Description 04/10/2025 9:00 AM EST Telemedicine [facility] MEDICINE [address] [place] [address] Ana Beach RN documented as of this encounter Visit Diagnoses Not on filedocumented in this encounter Care Teams Manager Programming Relationship Specialty Start Date End Date Teresita Munroe DO [address] [place] [address] PCP - General Family Medicine 07/28/14 documented as of this encounter
--- OUTSIDE RECORDS SUMMARY | 2025-02-05 15:04 | XMS_ITS | Encounter Summary ---
Author Organization [employer] Address [address] [facility] 7t [place] [address] Care Team Providers Care Nut Tapper Name Role Phone Teresita Munroe DO Primary Care Provider [phone]- [phone] Encounter Details Date Type Department Care Team ([facility] st Contact Info) Description 12/18/2024 Telephone [facility] MEDICINE [address] [place] [address] Teresita Munroe DO [address] [place] [address] Social History Tobacco Use Types Packs/Day Years [...] Info) Description 04/10/2025 9:00 AM EST Telemedicine [facility] MEDICINE [address] [place] [address] Ana Beach RN documented as of this encounter Visit Diagnoses Not on filedocumented in this encounter Additional Health Concerns Assessment Noted Time PHQ-9 Depression Total Score: 5 01/22/20 24 9:55 AM EDT documented as of this encounter Care Teams Nut Tapper Relationship Specialty Start Date End Date Teresita Munroe DO [address] [place] [id number] PCP - General Family Medicine 07/28/14 documented as of this encounter
--- OUTSIDE RECORDS SUMMARY | 2025-02-05 15:05 | XMS_ITS | Encounter Summary ---
Author Organization [employer] Address [address] [facility] 7t [place] [address] Care Team Providers Care Medical Practice Assistant Name Role Phone Teresita Munroe DO Primary Care Provider [phone]- [phone] Reason for Visit * Reason Onset Date Comments Med Refill 05/11/2023 Encounter Details Date Type Department Care Team (Late st Contact Info) Description 05/11/2023 Refill [facility] MEDICINE [address] [place] [address] Teresita Munroe DO [address] [place] [address] Chronic pain of both shoulders (Primary Dx) [...] traMADol (Ultram) 50 MG tablet [facility] [address] [place] [address] [address] documented in this encounter Plan of Treatment Upcoming Encounters Date Type Department Care Team (Late st Contact Info) Description 04/10/2025 9:00 AM EST Telemedicine [facility] MEDICINE [address] [place] [address] Ana Beach RN documented as of this encounter Visit Diagnoses Diagnosis Chronic pain of both shoulders- Primary documented in this encounter Care Teams Medical Practice Assistant Relationship Specialty Start Date End Date Teresita Munroe DO [address] [place] [address] PCP - General Family Medicine 07/28/14 documented as of this encounter
--- OUTSIDE RECORDS SUMMARY | 2025-02-05 15:05 | XMS_ITS | Encounter Summary ---
Author Organization [facility] Address 75 [facility] 7t [place] [address] Care Team Providers Care Filenet Developer Name Role Phone Teresita Munroe DO Primary Care Provider Encounter Details Date Type Department Care Team (Latest Contact Info) Description 2019 Abstract [facility] CONVERSIONS Dental, Provider, DDS Social [...] Upcoming Encounters Date Type Department Care Team ( st Contact Info) Description 04/10/2025 9:00 AM EST Telemedicine [facility] MEDICINE [address] [place] [address] Ana Beach RN documented as of this encounter Visit Diagnoses Not on filedocumented in this encounter Care Teams Filenet Developer Relationship Specialty Start Date End Date Teresita Munroe DO [address] [place] [address] PCP - General Family Medicine 07/28/14 documented as of this encounter
--- OUTSIDE RECORDS SUMMARY | 2025-02-05 15:05 | XMS_ITS | Encounter Summary ---
Author Organization [employer] [facility] Address [address] [facility] 7t [place] [address] Care Team Providers Care Rag Cutting Machine Operator Name Role Phone Teresita Munroe DO Primary Care Provider Encounter Details Date Type Department Care Team (Latest Contact Info) Description 12/22/2021 Abstract [facility] CONVERSIONS Dental, Provider, DDS Social History [...] Info) Description 04/10/2025 9:00 AM EST Telemedicine [facility] MEDICINE [address] [place] [address] Ana Beach RN documented as of this encounter Visit Diagnoses Not on filedocumented in this encounter Care Teams Rag Cutting Machine Operator Relationship Specialty Start Date End Date Teresita Munroe DO [address] [place] [address] PCP - General Family Medicine 07/28/14 documented as of this encounter
--- OUTSIDE RECORDS SUMMARY | 2025-02-05 15:05 | XMS_ITS | Clinical Summary ---
Author Organization [employer] Address [address] [facility] [address] [place] [address] Care Team Providers Care Maintenance Superintendent Name Role Phone Teresita Munroe DO Primary Care Provider [phone] Allergies Active Allergy Reactions Criticality Noted Date Comments Shellfish Allergy Hives 07/13/2022 Medications aspirin 81 MG EC tablet Take 1 tablet by mouth at bed time. Active docusate sodium (Colace) 100 MG capsule Take 1 capsule by mouth every 12 (twelve) hours. 022 Active DULoxetine (Cymbalta) [address] capsule Take 1 capsule by oral route twice daily Active evolocumab (Repatha SureClick) 140 MG/ML injection Inject 1 mL under the skin every 14 (fourteen) days. Active sulfaSALAzine (Azulfidine) 500 MG tablet take 1 tablet by oral route 4 times every day Active clopidogrel (Plavix) 75 MG tablet Take [...] oral route twice daily Active sodium chloride (Kaufman Nasal [place]) 0.65 % nasal sprayIndication s:COVID-19 1-2 sprays on each nostril every 2-3 hours as needed for nasal congestion 30 mL 1 023 Active gabapentin (Neurontin) 300 MG capsule 023 Active methotrexate 2.5 MG tablet 023 Active Diclofenac Sodium 1 % gel Apply 2 g topically if needed in the morning, at noon, in the evening, and at bedtime (pain). 150 g Active cholecalciferol VITAMIN D (Vitamin D-3) 50 MCG (1999 UT) tablet @@TAKE 1 TABLET BY MOUTH DAILY. 28 tablet Active GNP 8 Hour Arthritis Relief 650 MG ER tabletIndicatio ns:Rheumatoid arthritis, involving unspecified site, unspecified whether rheumatoid factor present ([facility]) TAKE 1 TABLET BY MOUTH EVERY 8 HOURS NEEDED FOR MILD PAIN. DO NOT CURSH, CHEW. OR SPLIT. 60 tablet Active Calcium Carb-Cholecalci ferol (Calcium + Vitamin D3) 600-10 MG-MCG tabletIndicatio ns:Osteopenia, unspecified location Take 1 tablet by mouth 2 times daily. 56 tablet Active albuterol (Ventolin HFA) 108 (90 Base) MCG/ACT inhaler Inhale 2 puffs every 4 (four) hours if needed for wheezing. 54 g 2025 Active Spacer/Aero-Hol ding Chambers (OptiChamber Khushi) misc 1 each every 4 (four) hours if needed (asthma). 1 each Active acetaminophen (Tylenol) 500 MG tablet Take 2 tablets (1,000 mg) by mouth every 6 (six) hours if needed for moderate pain or fever for up to 25 doses. 30 tablet Active Alcohol Swabs (Alcohol Prep) padsIndications :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 complication, without long-term current use of insulin ([facility]) 1 each 3 times daily. 100 each Active Misc. Devices (Pulse Oximeter For Finger) misc 1 each 2 times daily. 1 each Active Lancets 33G misc 1 each 3 times daily. 100 each Active FREESTYLE LITE test strip Use as instructed 100 each Active cetirizine (ZyrTEC) 10 MG tablet Take 1 tablet (10 mg) by mouth Once per day. 30 tablet 2025 Active Ketotifen Fumarate (Alaway) 0.035 % solution Administer 1 drop into affected eye(s) if needed in the morning and at bedtime (eye itching). 10 mL 3 Active rosuvastatin (Crestor) 40 MG tablet TAKE 1 TABLET BY MOUTH AT BEDTIME. 28 tablet 5 Active midodrine (Proamatine) 2.5 MG tabletIndicatio ns:Hypotension, unspecified hypotension type TAKE 1 TABLET BY MOUTH TWICE DAILY. 56 tablet 5 025 Active montelukast (Singulair) 10 MG tablet TAKE 1 TABLET BY MOUTH IN THE EVENING. 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 56 tablet 3 025 Active azithromycin (Zithromax) 250 MG tablet Take 2 tablets PO today then 1 tablet PO daily x 4 days 6 tablet Active mometasone (Nasonex) 50 MCG/ACT nasal spray SPRAY 2 SPRAYS INTO EACH NOSTRIL EVERY DAY. 17 g 11 Active guaiFENesin (Mucinex) 600 MG 12 hr tablet Take 1 tablet (600 mg) by mouth if needed in the morning and at bedtime for cough or congestion. Do not crush, chew, or split. 30 tablet 025 2025 Active predniSONE (Deltasone) 10 MG tabletIndicatio ns:COPD exacerbation ([facility]) Take 6 tabs PO daily x 2 days then take 5 tabs PO daily x 2 days then 4 tabs daily x 2 days then 3 tabs daily x 2 days then 2 tabs daily x 2 days then 1 tab daily x 2 days then 1/2 tab daily x 2 days 43 tablet 025 Active ipratropium-alb uterol (Duo-Neb) 0.5-2.5 mg/3 mL nebulizer solutionIndicat ions:Chronic obstructive pulmonary disease, unspecified COPD type (CMS/HCC) INHALE 1 AMPULE USING A NEBULIZER 4 TIMES A DAY IN THE MORNING, AT NOON, IN THE EVENING, AND AT BEDTIME NEEDED FOR WHEEZING OR SHORTNESS OF BREATH 180 mL 3 Active benzonatate (Tessalon Perles) 100 MG capsule Take 1 capsule (100 mg) by mouth if needed in the morning, at noon, and at bedtime for cough. Do not crush or chew. 30 capsule 025 2025 Active Fluticasone-Ume clidin-Vilant (Trelegy Ellipta) 200-62.5-25 MCG/ACT aerosol powder Inhale 1 puff Once per day. 28 each 11 Active traMADol (Ultram) 50 MG tabletIndicatio ns:Chronic pain of both shoulders Take 1 tablet (50 mg) by mouth every 6 (six) hours if needed for severe pain for up to 28 days. 112 tablet 025 2024 Active ipratropium-alb uterol (Duo-Neb) 0.5-2.5 mg/3 mL nebulizer solutionIndicat ions:Chronic obstructive pulmonary disease, unspecified COPD type (CMS/HCC) Take 3 mL by nebulization if needed in the morning, at noon, in the evening, and at bedtime for wheezing or shortness of breath. 180 mL 3 025 2024 Discontinued Fluticasone-Seth meterol 500-50 MCG/ACT aerosol powderIndicatio ns:Chronic obstructive pulmonary disease, unspecified COPD type (CMS/HCC) INHALE 1 PUFF BY MOUTH 2 TIMES DAILY 60 each 2 025 2024 Discontinued(I neffective) predniSONE (Deltasone) 10 MG tablet Take 6 tabs PO daily x 2 days then take 5 tabs PO daily x 2 days then 4 tabs daily x 2 days then 3 tabs daily x 2 days then 2 tabs daily x 2 days then 1 tab daily x 2 days then 1/2 tab daily x 2 days 43 tablet 025 2024 Discontinued(R eorder (will not trigger notification to Pharmacy)) Umeclidinium [place] (Incruse Ellipta) 62.5 MCG/ACT aerosol powderIndicatio ns:Chronic obstructive pulmonary disease, unspecified COPD type (CMS/HCC) Inhale 1 Act (62.5 mcg) Once per day. 30 Act 11 025 2024 Discontinued(I neffective) benzonatate (Tessalon Perles) 100 MG capsule Take 1 capsule (100 mg) by mouth if needed in the morning, at noon, and at bedtime for cough for up to 10 days. Do not crush or chew. 30 capsule 025 2024 benzonatate (Tessalon Perles) 100 MG capsuleIndicati ons:COPD exacerbation (CMS/HCC) Take 1 capsule (100 mg) by mouth if needed in the morning, at noon, and at bedtime for cough for up to 7 days. Do not crush or chew. 20 capsule 025 2024 Discontinued(R eorder (will not trigger notification to Pharmacy)) levoFLOXacin (Levaquin) 500 MG tabletIndicatio ns:COPD exacerbation (CMS/HCC) Take 1 tablet (500 mg) by mouth Once per day for 7 days. 7 tablet 2024 Hospital, Clinic, or Other Facility Administered Medication Ordered Dose Route Frequency Start Date End Date Status ipratropium-albutero l (Duo-Neb) 0.5-2.5 mg/3 mL nebulizer solution 3 mgIndications:COPD exacerbation (CMS/HCC) 3 mg NEBULIZATION Once 01/21/2025 01/21/2025 Ended Active Problems Problem Noted Date Diagnosed Date COPD exacerbation 01/21/2025 Assessment & Plan (01/21/2025 11:50 AM EDT): I will prescribe for patient again prednisone extended treatment, I decided to prescribe for her levofloxacin in light that she recently took azithromycin, I will give her in office DuoNeb nebulization and I will prescribe for her also Tessalon pearls. X-ray will also be ordered patient will be contacted with results ED precautions were reviewed with patient Long-term current use of opiate analgesic 2024 Heartburn 09/17/2024 Osteoporosis without current pathological fractu [...] singulair daily -cont albuterol as needed -cont carlos manuel and flonase daily -f/u with pulm prn [...] Encounters Date Type Department Care Team Description 02/04/2025 Telephone [facility] [address] [place] [phone] Teresita Munroe DO Durable Medical Equipment 01/26/2025 10:30 AM EDT Telemedicine [address] [address] Ana Beach, RN Long-term current use of opiate analgesic 01/26/[address] [address] Teresita Munroe DO Prior Authorization (PA: benzonatate (Tessalon Perles) 100 MG capsule ) 01/26/[address] [address] Ana Beach, client services manager pain of both shoulders (Primary Dx) 01/23/2025 10:00 AM EDT Office Visit [address] [phone] Teresita Munroe DO 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 complication, without long-term current use of insulin (CMS/HCC) (Primary Dx); Mixed hyperlipidemia; Fatty liver; Generalized anxiety disorder; Infrarenal abdominal aortic aneurysm (AAA) without rupture (CMS/HCC); COPD exacerbation (CMS/HCC); Rheumatoid arthritis, involving unspecified site, unspecified whether rheumatoid factor present (CMS/HCC); Osteoporosis without current pathological fracture, unspecified osteoporosis type; Chronic pain of both shoulders; Bilateral elbow joint pain; Heartburn; Forgetfulness; Healthcare maintenance; Dietary counseling; Exercise counseling 01/23/2025 Travel 01/23/2025 Refill [facility] [address] [place] [phone] Chris Emanuel MD Chronic obstructive pulmonary disease, unspecified COPD type (CMS/HCC) 01/21/2025 10:00 AM EDT Office Visit [facility] [address] [place] [phone] Charmaine Rowland MD COPD exacerbation (CMS/HCC) (Primary Dx) 01/21/[address] [address] Teresita Munroe DO Chart Prep 01/21/2025 Travel 01/12/2025 Travel 01/01/2025 10:00 AM EDT Office Visit [facility] [address] [place] [phone] Teresita Munroe DO COPD exacerbation (CMS/HCC) (Primary Dx); Acute URI; Chronic obstructive pulmonary disease, unspecified COPD type (CMS/HCC) 01/01/2025 Travel 12/31/[address] [address] Teresita Munroe DO telephone call 12/27/2024 Orders Only GENERIC EXTERNAL DATA DEPARTMENT Provider, Generic External Data 12/26/[address] [address] Teresita Munroe DO Durable Medical Equipment 12/22/[address] [address] Ana Beach RN [employer] POWER BRAKE OPERATOR Renewal today 12/18/2024 Refill [facility] [address] [place] [phone] Teresita Munroe DO 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 complication, unspecified whether assisted insulin use (CMS/HCC) 12/18/[address] [address] Teresita Munroe DO 12/16/2024 Orders Only GENERIC EXTERNAL DATA DEPARTMENT Provider, Generic External Data 12/11/2024 Orders Only GENERIC EXTERNAL DATA DEPARTMENT Provider, Generic External Data 11/19/2024 Refill [facility] [address] [place] [phone] Teresita Munroe DO Chronic obstructive pulmonary disease, unspecified COPD type (CMS/HCC); 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 complication, 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 ([facility]) 11/13/2024 Refill [facility] [address] [place] [address] Teresita Munroe, Chronic pain of both shoulders (Primary Dx) from Last 3 Months Immunizations Immunization Administration Dates Next Due Hep B, adult [...] Sign Reading Time Taken Comments Blood Pressure 138/78 01/23/2025 10:44 AM EDT Pulse 74 01/23/2025 10:22 AM EDT Temperature 36.6 C (97.9 F) 01/23/2025 10:22 AM EDT Respiratory Rate 19 01/23/2025 10:22 AM EDT Oxygen Saturation 93% 01/23/2025 10:22 AM EDT Inhaled Oxygen Concentration - - Weight 66.3 kg (146 lb 2 oz) 01/23/2025 10:22 AM EDT Height 160 cm (5' 3 ) 01/23/2025 10:22 AM EDT Body Mass Index 25.88 01/23/2025 10:22 AM EDT Plan of Treatment Upcoming Encounters Date Type Department Care Team (Late st Contact Info) Description 04/10/2025 9:00 AM EST Telemedicine [facility] [address] [place] [address] Ana Beach, RN Health Maintenance Due Date Last Done Comments CT Colonography 1950 Dental Prophylaxis 1950 Dental X-Ray: Bitewings 1950 FIT DNA/Cologuard 1950 FIT 1950 FOBT 1950 Sigmoidoscopy 1950 Diabetes: Foot Exam 1959 Eye Exam 1959 Hepatitis A Vaccines (1 of 2 - Risk 2-dose series) 1968 Zoster Vaccines (3 of 3) 10/17/2021 08/22/2021, 07/2014 Dental Oral Exam 12/11/2022 06/12/2022 RSV Patients and Patients Aged 60 years or older (1 - 1-dose 75+ series) 2024 Depression Screening 01/21/2025 01/22/2024, 01/22/20 24 COVID-19 Vaccine ( season) 2025 05/09/2021, 09/09/2020, 08/12/2020, Additional history exists Influenza Vaccine (#1) 2025 , 06/09/2022, 05/24/2021, Additional history exists Diabetes: Urine Protein Screening 04/09/2025 04/09/2024, 10/17/2022, 08/22/2021, Additional history exists Dental X-Ray: Full Mouth 06/13/2025 06/12/2022 Diabetes: Hemoglobin A1C 07/26/2025 025, 09/17/2024, 04/09/2024, Additional history exists SDOH Screening 09/08/2025 09/08/2024 Alcohol/Substance Use Screening 09/17/2025 09/17/2024 Colonoscopy 11/10/2025 11/10/2020, 11/03/2014 Colorectal Cancer Screening 11/10/2025 Lipid Panel 12/11/2025 12/11/2024, 11/2023, 10/17/2022, Additional history exists Tobacco Screening 01/23/2026 01/23/2025 DTaP/Tdap/Td Vaccines (3 - Td or Tdap) 09/18/2033 09/19/2023, 12/17/2012, 12/17/2006 Hepatitis B Vaccines Completed 09/28/2016, 04/05/2015, 03/04/2015 Pneumococcal Vaccine: 50+ Years Completed 02/22/2023, 09/28/2016, 04/05/2015, Additional history exists Hepatitis C Screening Completed 12/11/2024, 024 HIB Vaccines Aged Out No longer eligi ble based on patient's age to complete this topic HPV Vaccines Aged Out No longer eligi ble based on patient's age to complete this topic IPV Vaccines Aged Out No longer eligi ble based on patient's age to complete this topic Meningococcal B Vaccine Aged Out No l onger eligible based on patient's age to complete [...] Name Priority Date/Time Associated Diagnosis Comments POCT GLYCATED HEMOGLOBIN, TOTAL Routine 01/23/2025 10:42 AM EDT 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 complication, without long-term current use of insulin ([facility]/HCC) POCT GLUCOSE Routine 01/23/2025 10:42 AM EDT 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 complication, without long-term current use of insulin (CMS/HCC) POCT INFLUENZA B (ID NOW RAPID MOLECULAR) Routine 01/21/2025 10:01 AM EDT COPD exacerbation (CMS/HCC) POCT INFLUENZA A (ID NOW RAPID MOLECULAR) Routine 01/21/2025 10:01 AM EDT COPD exacerbation (CMS/HCC) POCT RAPID COVID ANTIGEN Routine 01/21/2025 10:01 AM EDT COPD exacerbation (CMS/HCC) XR CHEST 2 VIEWS Routine 01/21/2025 9:48 AM EDT COPD exacerbation (CMS/HCC) POCT INFLUENZA B (ID NOW RAPID MOLECULAR) Routine 01/01/2025 9:52 AM EDT Acute URI POCT INFLUENZA A (ID NOW RAPID MOLECULAR) Routine 01/01/2025 9:52 AM EDT Acute URI POCT RAPID COVID ANTIGEN Routine 01/01/2025 9:52 AM EDT Acute URI XR CHEST 2 VIEWS Routine 12/27/2024 11:5 4 AM EDT HIGH SENSITIVITY TROPONIN I Routine 12/27/2024 10:52 AM EDT MAGNESIUM Routine 12/27/2024 10:52 AM EDT COMPREHENSIVE METABOLIC PANEL Routine 12/27/2024 10:52 AM EDT CBC WITH AUTO DIFFERENTIAL Routine 12/27/2024 10:52 AM EDT SARS COV2/INFLUENZA A/B AND RSV RNA QL NAAT Routine 12/27/2024 10:52 AM EDT CALCIUM, IONIZED Routine 12/16/2024 11:0 5 AM EDT VITAMIN D,25-OH,TOTAL,IA Routine 12/16/2024 11:05 AM EDT ALBUMIN Routine 12/16/2024 11:05 AM EDT PHOSPHATE ( PHOSPHORUS) Routine 12/16/2024 11:05 AM EDT CALCIUM Routine 12/16/2024 11:05 AM EDT CREATININE, SERUM Routine 12/16/2024 11: 05 AM EDT PTH, INTACT WITHOUT CALCIUM Routine 12/16/2024 11:05 AM EDT T-SPOT(R).TB Routine 12/11/2024 9:09 AM EDT SED RATE BY MODIFIED WESTERGREN Routine 12/11/2024 9:09 AM EDT HEPATITIS PANEL, GENERAL Routine 12/11/2024 9:09 AM EDT LIPID PANEL, STANDARD Routine 12/11/2024 9:09 AM EDT C-REACTIVE PROTEIN Routine 12/11/2024 9: 09 AM EDT COMPREHENSIVE METABOLIC PANEL Routine 12/11/2024 9:09 AM EDT CBC WITH AUTO DIFFERENTIAL Routine 12/11/2024 9:09 AM EDT ALBUMIN, RANDOM URINE W/CREATININE Routine 04/09/2024 9:28 [...] Relevant to Health Maintenance Results * (ABNORMAL) POCT HGB A1C (01/23/2025 10:42 AM EDT) Hemoglobin A1C 6.2(A) 4.0 - 5.7 % QC Media Lot # [id number] Lot# Expiration Date ,152,568 Blood 01/23/2025 10:4 2 AM EDT Teresita Ludwig DO POINT OF CARE TEST ENTER/GUME T ORDERABLES Final Result * POCT Glucose (01/23/2025 10:42 AM EDT) [facility] Glucose Blood, POC 91 60 - 200 mg/dL QC Media Lot # [id number] Lot# Expiration Date ,563,440 Blood Capillary blood specimen / Unknown 01/23/2025 10:42 AM EDT Teresita Ludwig DO POINT OF CARE TEST ENTER/GUME T ORDERABLES Final Result * Influenza B (ID NOW Rapid Molecular) (01/21/2025 10:01 AM EDT) Only the most recent of2 resultswithin the time period is included. [facility] Influenza B Negative Negative, Indeterminate [facility] Swab 01/21/2025 10:0 1 AM EDT us Charmaine Salas MD POINT OF CARE TEST EN TER/EDIT ORDERABLES Final Result Performing Organization Address City/[facility]/ZIP Co de Phone Number [facility] [address] [place] [phone] * Influenza A (ID NOW Rapid Molecular) (01/21/2025 10:01 AM EDT) Only the most recent of2 resultswithin the time period is included. [facility] Influenza A Negative Negative, Indeterminate [facility] Swab 01/21/2025 10:0 1 AM EDT Charmaine Salas MD POINT OF CARE TEST EN TER/EDIT ORDERABLES Final Result Performing Organization Address City/[facility]/ZIP Co de Phone Number [facility] [address] [place] [phone] * POCT Rapid COVID Ag (01/21/2025 10:01 AM EDT) Only the most recent of2 resultswithin the time period is included. Rapid COVID Ag Negative [facility] Swab 01/21/2025 10:0 1 AM EDT us Charmaine Salas MD POINT OF CARE TEST EN TER/EDIT ORDERABLES Final Result Performing Organization Address City/State/[facility] Co de Phone Number [facility] [address] [place] [phone] * XR Chest 2 Views (01/21/2025 9:48 AM EDT) Only the most recent of2 resultswithin the time period is included. Anatomical Region Laterality Modality Chest Radiographic Dayana ging 01/21/2025 9:48 AM EDT Narrative 01/21/2025 12:24 PM EDT [address] [address] XRay Report Signed Patient: Aspen Farah MR#: [id number] 4 : 1950 Acct:[id number] Age/Sex: 74 / F ADM Date: 01/21/25 Loc: [facility] Attending Dr: Charmaine Salas MD Ordering Physician: Charmaine Rowland MD Date of Service: 01/21/25 Procedure(s): XR chest 2V Accession Number(s): [id number] cc: Charmaine Rowland MD EXAMINATION: XR CHEST CLINICAL INFORMATION: COPD exacerbation COMPARISON: December 27, 2024 TECHNIQUE: 2 views of the chest were obtained. FINDINGS: Pulmonary reticular pattern. Bilateral apical lung scarring. No consolidation, pleural effusion or pneumothorax. Cardiomediastinal silhouette size is normal. Calcified plaque thoracic Aaron. Osteopenia versus osteoporosis. Multilevel spondylosis. 20% volume loss of the vertebral bodies in the mid to lower thoracic spine probably old. Sclerotic trabeculated abnormality in the left humeral head. There is a metallic prosthesis in the right humeral head. XR/XR chest 2V IMPRESSION: Chronic interstitial lung disease without acute airspace disease. Old traumatic deformity versus severe degenerative changes in the left humeral head. Multilevel spondylosis with likely old 20% compression deformities in the vertebral bodies, thoracic spine. Electronically signed by: Sky Holland MD 01/21/2025 12:22 PM EDT RP Dictated By: Sky Roger MD Signed By: <Electronically signed by Sky Rowland MD in OV> 01/21/25 1222 DD/ 0948 TD/TT: 01/21/25 1000 Curing Machine Operator: Procedure Note Donotuseinterpreter, Image - 01/21/[address] [address] XRay Report Signed Patient: Shirin Farah#: [id number] 4 : 9Acct:[id number] Age/Sex: 74 / FADM Date: 01/21/25 [facility]: Charmaine Salas MD Ordering Physician: Charmaine Rowland MD Date of Service: 01/21/25 Procedure(s): XR chest 2V Accession Number(s): [id number] cc: Charmaine Rowland MD EXAMINATION: XR CHEST CLINICAL INFORMATION: COPD exacerbation COMPARISON: December 27, 2024 TECHNIQUE: 2 views of the chest were obtained. FINDINGS: Pulmonary reticular pattern. Bilateral apical lung scarring. No consolidation, pleural effusion or pneumothorax. Cardiomediastinal silhouette size is normal. Calcified plaque thoracic Aaron. Osteopenia versus osteoporosis. Multilevel spondylosis. 20% volume loss of the vertebral bodies in the mid to lower thoracic spine probably old. Sclerotic trabeculated abnormality in the left humeral head. There is a metallic prosthesis in the right humeral head. XR/XR chest 2V IMPRESSION: Chronic interstitial lung disease without acute airspace disease. Old traumatic deformity versus severe degenerative changes in the left humeral head. Multilevel spondylosis with likely old 20% compression deformities in the vertebral bodies, thoracic spine. Electronically signed by: Sky Holland MD 01/21/2025 12:22 PM EDT RP Dictated By: Sky Roger MD Signed By: <Electronically signed by Sky Rowland MDin OV> 01/21/25 1222 DD/ 0948 TD/TT: 01/21/25 1000 Curing Machine Operator: us Charmaine Salas MD IMG XR PROCEDURES Fin al Result * High Sensitivity Troponin I (12/27/2024 10:52 AM EDT) Pathologist [facility] TROPONIN I HIGH SENSITIVITY <2.7 <3.5 - 17.0 ng/L [facility] Comment:The [place] high sens itivity Troponin-I results should beused in conjunction with other diagnostic information suchas ECG, clinical observations and information, and patientsymptoms to aid in the diagnosis of AR. 12/27/2024 10:5 2 AM EDT 12/27/2024 10:55 AM EDT Generic External Data Provider LAB BLOOD ORDERAB LES Final Result [facility] [address] [place] [phone] * SARS-CoV-2 RNA, Influenza A/B, and RSV RNA, Ql NAAT (12/27/2024 10:52 AM EDT) [facility] Influenza A PCR NEGATIVE Negative [facility] Influenza B PCR NEGATIVE Negative [facility] Resp Syncy Virus RNA Qual PCR NEGATIVE Negative [facility] SARS COV2 PCR NEGATIVE Negative [facility] Comment:All test results mus t be correlated with clinical findings.Negative results do not preclude SARS-CoV2, influenza Avirus, influenza B virus and/or RSV infectionand should not be used as the sole basis for treatment orother patient management decisions. Negative results must becombined with clinical observations, patient history, andepidemiological information.This test has not been evaluated for monitoring treatment ofinfection.This test has been authorized by the FDA under an EmergencyUse Authorization (EUA) for use by authorized laboratories.Testing performed on the Cepheid GeneXpert utilizingreal-time RT-PCR.All SARS CoV2 and positive influenza A/B results arereported to [facility]. 12/27/2024 10:5 2 AM EDT 12/27/2024 10:55 AM EDT us Generic External Data Provider LAB MICROBIOLOGY - GENERAL ORDERABLES Final Result [facility] [address] [place] [phone] * (ABNORMAL) CBC auto differential (12/27/2024 10:52 AM EDT) Only the most recent of2 resultswithin the time period is included. White Blood Count 4.6(L) 4.8 - 10.8 X10*3/uL [facility] Red Blood Count 4.27 4.20 - 5.50 X10*6/uL [facility] Hemoglobin 13.0 12.0 - 16.0 g/dl [facility] Hematocrit 38.9 37.0 - 47.0 % [facility] Mean Corpuscular Volume 91.1 80.0 - 98.0 fL [facility] Mean Corpuscular Hemoglobin 30.4 27.0 - 33.0 pg [facility] Mean Corpuscular HGB Conc 33.4 31.0 - 35.0 g/dl [facility] Red Cell Distribution Width 12.6 11.0 - 16.0 % [facility] LABS Platelet Count 174 160 - 400 X10*3/uL [facility] Mean Platelet Volume 10.7 9.4 - 12.3 fL [facility] Neutrophils Percent Auto 50.7 45 - 73 % [facility] Imm Gran Pct Auto 0.2 0.0 - 0.4 % [facility] Lymphocytes Percent Auto 25.4 20 - 40 % [facility] Monocytes Percent Auto 13.6(H) 2 - 11 % [facility] Eosinophils Percent Auto 8.8(H) 0 - 4 % [facility] Basophils Percent Auto 1.3 0 - 2 % [facility] NRBC Pct Auto 0.0 0.0 - 0.2 /100WBC [facility] Neutrophils Absolute Auto 2.3 2.0 - 8.3 x10*3/uL [facility] Imm Gran Abs Auto 0.01 0.00 - 0.03 X10*3/uL [facility] Lymphocytes Absolute Auto 1.2 1.2 - 4.9 X10*3/uL [facility] Monocytes Absolute Auto 0.6 0.1 - 1.2 X10*3/uL [facility] Eosinophils Absolute Auto 0.4 0.0 - 0.4 X10*3/uL [facility] Basophils Absolute Auto 0.1 0.0 - 0.2 X10*3/uL [facility] NRBC Abs Auto 0.000 0.0 - 0.012 X10*3/uL [facility] 12/27/2024 10:5 2 AM EDT 12/27/2024 10:55 AM EDT us Generic External Data Provider LAB BLOOD ORDERAB LES Final Result Performing Organization Address City/[facility]/ZIP Co de Phone Number [facility] [address] [place] [phone] * Magnesium (12/27/2024 10:52 AM EDT) [facility] Magnesium 2.1 1.6 - 2.6 mg/dL [facility] 12/27/2024 10:5 2 AM EDT 12/27/2024 10:55 AM EDT Generic External Data Provider LAB BLOOD ORDERAB LES Final Result Performing Organization Address [facility] Co de Phone Number [facility] [address] [place] [address] [phone] * (ABNORMAL) Comprehensive Metabolic Panel (12/27/2024 10:52 AM EDT) Only the most recent of2 resultswithin the time period is included. [facility] Sodium 144 135 - 145 mmol/L [facility] Potassium 3.9 3.3 - 5.1 mmol/L [facility] Chloride 110(H) 96 - 108 mmol/L [facility] Carbon Dioxide 25 22 - 29 mmol/L [facility] Anion Gap 13 12 - 20 [facility] Urea Nitrogen (BUN) 7(L) 9 - 16 mg/dL [facility] Creatinine, Serum 0.70 0.5 - 1.4 mg/dL [facility] Creatinine Clr Calc Pharmacy 63.4 [facility] Comment:Provided height and weight: 160.02 cm,66.1 kg.eGFR (calculated from the MDRD study equation) and eCrCl(calculated from the Cockcroft-Gault equation) are based ondifferent parameters and may not yield comparable results.If eCrCl result is absurd, please check patient'sheight/weight. Estimated Glomerular Filt Rate >60 [facility] Comment:Chronic Kidney Disea se: Estimated GFR < 60 mL/min/1.25y5Dxvieu Kidney Disease: Estimated GFR < 15 mL/min/1.73m2 Glucose 120(H) 60 - 115 mg/dL [facility] Calcium 9.2 8.4 - 10.2 mg/dL [facility] Bilirubin, Total 0.4 0.0 - 1.0 mg/dL [facility] Aspartate Amino Transferase 29 5 - 31 U/L [facility] Alanine Aminotransferase 28 0 - 31 U/L [facility] Total Protein 7.3 6.5 - 8.0 g/dL [facility] Albumin Level 4.2 3.5 - 5.0 g/dL [facility] Alkaline Phosphatase 79 39 - 117 U/L [facility] 12/27/2024 10:5 2 AM EDT 12/27/2024 10:55 AM EDT us Generic External Data Provider LAB BLOOD ORDERAB LES Final Result [facility] [address] [place] [phone] * Vitamin D, 25-Hydroxy, Total, Immunoassay (12/16/2024 11:05 AM EDT) Vitamin D 25-OH Total 33.4 >30 ng/mL [facility] Comment: Health Based Reference Values*< 20 ng/mL Gxqgadyoz15-17 ng/mL Insufficient> 30 ng/mL Sufficient*Santos MARCELINO. N Engl J Med. 2007;357:266-280There is no well-established upper level of normal vitamin Dlevels. Some laboratories use 50 ng/mL as an upper limit ofnormal. However, toxicity is patient-dependent and may occurat any level. Careful correlation with the patient'spresentation is necessary and, if there is concern forvitamin D toxicity, treatment should be consideredirrespective of the serum level.Care must be taken in interpreting Vitamin D [...] confirmed with another method such as LC-MS/MS. 12/16/2024 11:0 5 AM EDT 12/16/2024 11:05 AM EDT Generic External Data Provider LAB BLOOD ORDERAB LES Final Result [facility] [address] [place] [phone] * Creatinine, Serum (12/16/2024 11:05 AM EDT) Creatinine, Serum 0.68 0.5 - 1.4 mg/dL [facility] Estimated Glomerular Filt Rate >60 [facility] Comment:Chronic Kidney Disea se: Estimated GFR < 60 mL/min/1.65x7Wqhdxy Kidney Disease: Estimated GFR < 15 mL/min/1.73m2 12/16/2024 11:0 5 AM EDT 12/16/2024 11:05 AM EDT Generic External Data Provider LAB BLOOD ORDERAB LES Final Result Performing Organization Address [facility] Co de Phone Number [facility] [address] [place] [phone] * Phosphate (As Phosphorus) (12/16/2024 11:05 AM EDT) Phosphorus 3.7 2.7 - 4.5 mg/dL [facility] 12/16/2024 11:0 5 AM EDT 12/16/2024 11:05 AM EDT Generic External Data Provider LAB BLOOD ORDERAB LES Final Result Performing Organization Address [facility] Co de Phone Number [facility] [address] [place] [address] [phone] * (ABNORMAL) PTH, Intact Without Calcium (12/16/2024 11:05 AM EDT) Parathyroid Hormone, Intact 78.8(H) 8.7 - 77.1 pg/mL [facility] 12/16/2024 11:0 5 AM EDT 12/16/2024 11:05 AM EDT Generic External Data Provider LAB BLOOD ORDERAB LES Final Result Performing Organization Address [facility] Co de Phone Number [facility] [address] [place] [address] [phone] * Calcium, Ionized (12/16/2024 11:05 AM EDT) Calcium, Ionized 5.2 4.7 - 5.5 mg/dL [facility] Comment:THIS TEST WAS PERFOR MED AT:[facility] [place] [phone] MACEDO MD 12/16/2024 11:0 5 AM EDT 12/16/2024 11:05 AM EDT Generic External Data Provider LAB BLOOD ORDERAB LES Final Result Performing Organization Address [facility] Co de Phone Number [facility] [address] [place] [phone] * Calcium (12/16/2024 11:05 AM EDT) Calcium 9.1 8.4 - 10.2 mg/dL [facility] 12/16/2024 11:0 5 AM EDT 12/16/2024 11:05 AM EDT Generic External Data Provider LAB BLOOD ORDERAB LES Final Result Performing Organization Address [facility] Co de Phone Number [facility] [address] [place] [address] [phone] * Albumin (12/16/2024 11:05 AM EDT) Pathologist [facility] Albumin Level 4.0 3.5 - 5.0 g/dL [facility] 12/16/2024 11:0 5 AM EDT 12/16/2024 11:05 AM EDT Generic External Data Provider LAB BLOOD ORDERAB LES Final Result Performing Organization Address [facility] Co de Phone Number [facility] [address] [place] [phone] * T-SPOT??.TB (12/11/2024 9:09 AM EDT) T Spot TB Negative Negative [facility] Comment:A negative test resu lt [...] as aquantitative test. TS PANEL A 0 [facility] TS PANEL B 0 [facility] Negative Control Passed [facility] Positive Control Passed [facility] Comment:For additional infor mation, please refer [email or web address](This link is being provided for informational/educational purposes only.)REPORT COMMENT:REC'D AT [facility] TEST WAS PERFORMED AT:[email or web address] [place] [id number] CLIFFORD MD,PHD 12/11/2024 9:09 AM EDT 12/11/2024 9:09 AM EDT us Generic External Data Provider LAB BLOOD ORDERAB LES Final Result [facility] [address] [place] [phone] * Hepatitis Panel, General (12/11/2024 9:09 AM EDT) Hepatitis A IgM Nonreactive Nonreactive [facility] Comment:IgM antibodies to GUERRA V not detected; does not exclude earlyacute or recovered HAV infection. ~Hepatitis B Surface Antibody REACTIVE Nonreactive [facility] Comment:REACTIVE: > 11.99 mI U/mL Hepatitis B Core Antibody Nonreactive Nonreactive [facility] Hepatitis C Antibody Nonreactive Nonreactive [facility] Comment:Antibodies to HCV no t detected; does not exclude early acuteHCV infection. Hepatitis B Surface Ag Negative Negative [facility] 12/11/2024 9:09 AM EDT 12/11/2024 9:09 AM EDT Generic External Data Provider LAB BLOOD ORDERAB LES Final Result Performing Organization Address [facility] Co de Phone Number [facility] [address] [place] [phone] * (ABNORMAL) Sed Rate by Modified Westergren (12/11/2024 9:09 AM EDT) Erythrocyte Sedimentation Rate 33(H) 0 - 20 MM/HR [facility] Comment:Patients with polycy themia and many hemoglobin abnormalitiesmay have depressed sed rates whereas patients with anemiamay have elevated sed rates. 12/11/2024 9:09 AM EDT 12/11/2024 9:09 AM EDT Generic External Data Provider LAB BLOOD ORDERAB LES Final Result Performing Organization Address [facility] Co de Phone Number [facility] [address] [place] [address] [phone] * (ABNORMAL) C-reactive Protein (12/11/2024 9:09 AM EDT) C Reactive Protein 0.69(H) < or = 0.50 mg/dL [facility] 12/11/2024 9:09 AM EDT 12/11/2024 9:09 AM EDT Generic External Data Provider LAB BLOOD ORDERAB LES Final Result Performing Organization Address [facility] Co de Phone Number [facility] [address] [place] [phone] * (ABNORMAL) Lipid Panel, Standard (12/11/2024 9:09 AM EDT) Triglycerides 301(H) <150 mg/dL [facility] Comment:Desirable Triglyceri de: less than 150 mg/dLBorderline High Triglyceride 150-199 mg/dLHigh Triglyceride: 200-499 mg/dLVery High Triglyceride: greater than or equal to 5OO mg/dL Cholesterol 165 <200 mg/dL [facility] Comment:Desirable Cholestero l: less than 200 mg/dLBorderline High Cholesterol: 200-239 mg/dLHigh Cholesterol: greater than 239 mg/dL LDL Cholesterol Calculated 70 <100 mg/dL [facility] Comment:Desirable LDL: less than 100 mg/dLNear Optimal/Above Optimal LDL: 110- 129 mg/dLBorderline High LDL: 130-159 mg/dLHigh LDL: 160-189 mg/dLVery High LDL: greater than or equal to 190 mg/dL HDL Cholesterol 35(L) >40 mg/dL [facility] Comment:Desirable HDL: great er than 40 mg/dL Note: This HDL assay may give artificially low results in patients with liver disease. 12/11/2024 9:09 AM EDT 12/11/2024 9:09 AM EDT us Generic External Data Provider LAB BLOOD ORDERAB LES Final Result [facility] [address] [place] [phone] * Albumin, Random Urine W/Creatinine (04/09/2024 9:28 AM EST) Creatinine, Urine 128.14 mg/dL [facility] Microalbumin Urine 12.0 mg/L [facility] Microalbum Creatinine Ratio Ur 9.3 <30 ug/mg cr [facility] Comment:Albumin/Creatinine R atio Reference Ranges: Normal: < 30 ug/mg creatinine Microalbuminuria: 30 - 300 ug/mg creatinineClinical Albuminuria: > 300 ug/mg creatinine Urine (Urine, Random) 04/09/2024 9:28 AM EST 04/09/2024 9:40 AM EST us Teresita Munroe DO LAB URINE ORDERABLES Final R esult [facility] [address] [place] [phone] * Hm Colonoscopy (11/10/2020 10:20 AM EDT) us Historical Provider HEALTH MAINTENANCE Final Result from Last 3 Months or Most Recently Relevant to Health Maintenance Insurance [facility] INTERMEDIATE OPTIONS (O D-SNP) DENTAL [facility] Care Teams Maintenance Superintendent Relationship Specialty Start Date End Date Teresita Munroe DO [address] [place] [phone] PCP - General Family Medicine 07/28/14
--- OUTSIDE RECORDS SUMMARY | 2025-02-05 15:05 | XMS_ITS | Encounter Summary ---
Author Organization [employer] Address [address] [facility] [address] [place] [address] Care Team Providers Care Credit Risk Management Director Name Role Phone Teresita Munroe DO Primary Care Provider [phone] Reason for Visit * Reason Comments Med Refill Encounter Details Date Type Department Care Team ([facility] st Contact Info) Description 01/03/2024 Refill [facility] MED & PEDS [address] [place], [place] [phone] Teresita Munroe DO [address] [facility] [place], [place] [phone] 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 complication, unspecified whether group home insulin use (CMS/[facility]); Osteopenia, unspecified location Social History Tobacco [...] Info) Description 04/10/2025 9:00 AM EST Telemedicine [facility] MEDICINE [address] [place] [address] Ana Beach RN documented as of this encounter Visit Diagnoses Diagnosis 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 complication, unspecified whether long term care pharmacist insulin use ([facility]) Osteopenia, unspecified location documented in this encounter Care Teams Credit Risk Management Director Relationship Specialty Start Date End Date Teresita Munroe DO [address] [place] [address] PCP - General Family Medicine 07/28/14 documented as of this encounter
--- OUTSIDE RECORDS SUMMARY | 2025-02-05 15:05 | XMS_ITS | Encounter Summary ---
Author Organization [employer] Address [address] [facility] [address] [place] [address] Care Team Providers Care Supply Analyst Name Role Phone Teresita Munroe DO Primary Care Provider + [phone] Encounter Details Date Type Department Care Team ([facility] st Contact Info) Description 09/14/2023 Orders Only [facility] MEDICINE [address] [place] [address] ProviderFlor MD Social History Tobacco Use Types Packs/Day Years Used Date Smoking Tobacco: Never Passive Smoke Exposure: Never Smokeless Tobacco: Never Alcohol Use Standard Drinks/Week Comments Never 0 (1 standard drink = 0.6 oz pur e alcohol) Housing Stability Answer Date Recorded What is your housing situation today? I have poly wilson 03/21/[address] you li [...] 04/10/2025 9:00 AM EST Telemedicine [facility] MEDICINE [address] [place] [address] Ana Beach RN documented as of this encounter Procedures Procedure [...] on filedocumented in this encounter Care Teams Supply Analyst Relationship Specialty Start Date End Date Teresita Munroe DO [address] [place] [address] PCP - General Family Medicine 07/28/14 documented as of this encounter
--- OUTSIDE RECORDS SUMMARY | 2025-02-05 15:05 | XMS_ITS | Encounter Summary ---
Author Organization [employer] Address [address] [facility] [address] [place] [address] Care Team Providers Care Vertical Contour Band Saw Operator Name Role Phone Teresita Munroe DO Primary Care Provider [phone] Reason for Visit * Reason Comments Med Refill Encounter Details Date Type Department Care Team ([facility] st Contact Info) Description 07/02/2023 Refill [facility] MEDICINE [address] [place] [address] Teresita Munroe DO [address] [place] [address] Chronic obstructive pulmonary disease, unspecified COPD type (CMS/HCC) Social History Tobacco Use Types Packs/Day Years Used Date Smoking Tobacco: Never Passive Smoke Exposure: Never Smokeless Tobacco: Never Alcohol Use Standard Drinks/Week Comments Never 0 (1 standard drink = 0.6 oz pur e alcohol) Housing Stability Answer Date Recorded What is your housing situation today? I have polyrenae rachel 03/21/[address] you [...] Info) Description 04/10/2025 9:00 AM EST Telemedicine [facility] MEDIC[facility] [address] [place] [address] Ana Beach RN documented as of this encounter Visit Diagnoses Diagnosis Chronic obstructive pulmonary disease, unspecified COPD type (CMS/HCC) documented in this encounter Care Teams Vertical Contour Band Saw Operator Relationship Specialty Start Date End Date Teresita Munroe DO [address] [place] [address] PCP - General Family Medicine 07/28/14 documented as of this encounter
== END 2025-02-05 13:49 | disposition home or self-care (01) ==
LOC: HO.HOSX 13:48
PROVIDERS: Visit Provider Orthopaedic Surgery
DX: Z47.1 Aftercare following joint replacement surgery (principal); Z96.611 Presence of right artificial shoulder joint
CPT/HCPCS: 73030; 99212

== ENCOUNTER 2025-02-05 14:25 | Outpatient (AMB) | payer OTHER, SELFPAY ==
--- NOTE | 2025-02-05 14:39 | MHC.OFFVIS ---
Intake Visit Reasons: OV- RT TSA 01/24/22 Intake Note: Aspen is a 72 year old left hand dominant female who presents today for a follow up appointment of her right shoulder about 3 years s/p Right TSA 01/24/22. At her last visit she reported mild pain and some increasing stiffness. She was given a home exercise program. Patient currently reports that she is having continued pain in the shoulder, particularly with ROM. Mentions that she has had some right elbow inflammation. Allergies lobster Allergy (Uncoded 12/27/24 10:13) Nausea and Vomiting HPI HPI OV- RT TSA 01/24/22: Details: Aspen is a 72 year old left hand dominant female who presents today for a follow up appointment of her right shoulder about 3 years s/p Right TSA 01/24/22. At her last visit she reported mild pain and some increasing stiffness. She was given a home exercise program. Patient currently reports that she is having continued pain in the shoulder, particularly with ROM. Mentions that she has had some right elbow inflammation. [facility] Medical History Long-term use of Plaquenil Encounter for methotrexate monitoring Encounter for monitoring tocilizumab therapy Vitamin D deficiency Hypothyroxinemia Osteoarthritis (arthritis due to wear and tear of joints) Chronic venous insufficiency Subclavian artery stenosis Carotid arterial disease AAA (abdominal aortic aneurysm) Diabetes Elevated cholesterol COPD (chronic obstructive pulmonary disease) Asthma PVD (peripheral vascular disease) CAD (coronary artery disease) HTN (hypertension) Surgical History History of arthroplasty of right shoulder Hx of removal of cyst Hx of endoscopy History of colonoscopy Family History Father No problems noted. 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 Forward flex about 120 degrees. Externally rotate 30 degrees. Incision is well healed. She has a mild nonspecific soreness over the medial epicondyle of the elbow. Full elbow range of motion. Results Reviewed Results Reviewed: I personally reviewed relevant radiographs. Right total shoulder arthroplasty in expected post operative position with no hardware complications or evidence of loosening Assessment & Plan Assessment & Plan (1) History of arthroplasty of right shoulder: Comment: 01/24/22 [facility] Code(s): Z96.611 - Presence of right artificial shoulder joint Category: Surgical Plan: History of right shoulder replacement 2 years ago. She feels overall pretty well but has some soreness and some tightness with overhead motion. This is unchanged from prior. Incisions well healed. She is neurovascularly intact. Radiographs are unremarkable. I reassured her that everything looks okay. She expressed understanding and we will let me know if her symptoms worse. Orders: Orders XR shoulder RT min 2V Today M25.519 - Pain in unspecified shoulder Coding Level of Care Code Est Pt Level 3 (62143) Diagnoses History of arthroplasty of right shoulder Z96.611
== END 2025-02-05 15:11 | disposition home or self-care (01) ==
LOC: HO.HOS 14:25
PROVIDERS: Visit Provider Orthopaedic Surgery
DX: Z47.89 Encounter for other orthopedic aftercare (principal); Z96.611 Presence of right artificial shoulder joint
CPT/HCPCS: 99213

== ENCOUNTER → 2025-02-05 14:28 | Outpatient (BNV) | payer OTHER, SELFPAY | PROVIDERS: Visit Provider Radiology Diagnostic Radiology | DX: M25.511 Pain in right shoulder (principal) | CPT/HCPCS: 73030 ==

== ENCOUNTER 2025-02-10 08:36 | Inpatient (IN) | payer OTHER, SELFPAY ==
[2025-02-10] VITALS (18 sets, daily range): BP systolic 107–160; BP diastolic 52–73; PULSE 91–138; RESP 15–30; TEMP 36.2–37.2; O2SAT 88–97; BMI 25.4; BMI 26.3
--- NOTE | ~2025-02-10 | XR_ITS ---
EXAMINATION: XR CHEST CLINICAL INFORMATION: sob COMPARISON: January 21, 2025, September 17, 2024 TECHNIQUE: 2 views of the chest were obtained. FINDINGS: Lungs are clear and well aerated. Coarse interstitial markings are again noted. Heart size is within normal limits. There is no pleural effusion. Total shoulder replacement has been performed on the left. There is sclerosis and subchondral lucency with osteochondral step-off involving the left humeral head. Fracture was visible on the prior. It has been present since at least September 17, 2024 XR/XR chest 2V IMPRESSION: No acute disease. 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 Electronically signed by: Callum Moreno MD 02/10/2025 10:33 AM EDT
--- NOTE | ~2025-02-10 | CT_ITS ---
EXAMINATION: CT CHEST ANGIOGRAPHY WITH IV CONTRAST INDICATION: hypoxic, tachy, sob, r/o PE COMPARISON: Comparison is made with the prior examination dated 518. TECHNIQUE: Helical CT scan of the chest was performed following administration of intravenous contrast (65 mL Omnipaque 350). The contrast bolus was timed to optimally opacify the pulmonary arteries. Thin sections were obtained through the pulmonary arteries. Coronal and sagittal reformatted images were generated. 3D/MIP reconstructed images are also obtained and reviewed. This CT exam was performed with one or more of the following dose reduction techniques: automated exposure control, adjustment of the mA and/or kV according to patient size, use of iterative reconstruction technique. DLP: 321 mGy-cm CHEST: THYROID: The thyroid gland is unremarkable. PULMONARY ARTERIES: No intraluminal filling defects are identified within the pulmonary arteries to suggest pulmonary emboli. LUNGS: There is mild to moderate emphysema. The lungs are clear. MEDIASTINUM: There is no mediastinal lymphadenopathy. JOVI: There is no hilar lymphadenopathy. CARDIOVASCULATURE: The heart is normal in size. There is no pericardial effusion. The thoracic aorta is normal in caliber. DEGREE OF CORONARY CALCIFICATION: not evaluable, due to dense contrast in the coronary arteries. PLEURA: There is no pleural effusion. No pneumothorax. MAIN AIRWAYS: The mainstem bronchi and proximal branches are patent. AXILLA: There is no axillary lymphadenopathy. UPPER ABDOMEN: The liver and spleen are enlarged. The visualized portions of the adrenals are unremarkable. BONES AND SOFT TISSUES: There is degenerative disc disease of the spine. CT/CT angio chest PE protocol IMPRESSION: 1. No evidence of pulmonary emboli. 2. Mild to moderate emphysema. The lungs are clear. 3. Hepatosplenomegaly. 4. Because mild to moderate emphysema is an independent risk factor for lung cancer, consider entering the patient into a program of yearly lung cancer screening with low dose chest CT. Electronically signed by: Eldon Paulino MD 02/10/2025 11:54 AM EDT
--- NOTE | 2025-02-10 08:54 | ED_ITS ---
HPI - Asthma General Chief Complaint: Asthma Stated Complaint: Asthma Time Seen by Provider: 02/10/25 08:54 Source: patient, ccie (grenadian) and other (CLINICAL PROJECT COORDINATOR) Mode of arrival: ambulatory Limitations: language barrier (grenadian) History of Present Illness ED Provider: SHARRON HERNANDEZ PA-C HPI Narrative: 74 year old female with past medical history significant for AAA, asthma/COPD, CAD, carotid arterial disease, chronic venous insufficiency, diabetes, HLD, HTN, PVD, RA, subclavian artery stenosis on baby aspirin and Plavix presents to the ED today with her CLINICAL PROJECT COORDINATOR with concerns of asthma exacerbation. CLINICAL PROJECT COORDINATOR reports patient has been complaining of feeling short of breath and wheezy x3 days. She has been using her inhaler and nebulizer at home without much improvement. States she was recently on a course of prednisone approximately 2 weeks ago for an asthma exacerbation. She has an appointment to establish care with a manager billing however this is not for another month. She is not on oxygen at baseline. Denies fever, cough, hemoptysis, LE pain/swelling. Related Data Home Medications ?Medication ?Instructions ?Recorded ?Confirmed duloxetine 60 mg capsule,delayed 60 mg PO BID 06/01/20 02/10/25 release fenofibrate 160 mg tablet 160 mg PO DAILY 06/01/2002/26 fexofenadine 180 mg tablet 180 mg PO DAILY 06/01/20 metformin 500 mg tablet,extended 500 mg PO BID 0 02/10/25 release 24 hr montelukast 10 mg tablet 10 mg PO DAILY 06/01/2002/26 rosuvastatin 40 mg tablet 40 mg PO DAILY 06/01/2002/26 clopidogrel 75 mg tablet 75 mg PO DAILY 11/05/2002/26 albuterol sulfate 90 mcg/actuation 2 puff inhalation Q 4-6H PRN 01/10/22 02/10/25 aerosol inhaler (Ventolin HFA) Wheezing buspirone 10 mg tablet 1 tab PO BID 01/10/22 ipratropium 0.5 mg-albuterol 3 mg 3 ml inhalation QID PRN Shortness 01/10/22 02/10/25 (2.5 mg base)/3 mL nebulization Of Breath Or Wheezing soln tramadol 50 mg tablet 1 tab PO TID PRN Pain 02/10/25 midodrine 2.5 mg tablet 1 tab PO BID 01/24/22 quetiapine 100 mg tablet 1 tab PO BEDTIME 01/24/22 acetaminophen 650 mg 650 mg PO TID 03/02/2302/10 tablet,extended release aspirin 81 mg tablet,delayed 81 mg PO DAILY 03/02/23 0 02/10/25 release diclofenac sodium 1 % topical gel 1 ea topical QID 02/10/25 gabapentin 300 mg capsule 300 mg PO DAILY 03/02/2302/26 lidocaine 5 % topical patch 1 patch topical DAILY 02/0302/10/25 sodium chloride 0.65 % nasal spray 1 - 2 spray intrana aida Q2-3H PRN 03/02/23 02/10/25 aerosol (Deep Sea Nasal) congestion evolocumab 140 mg/mL subcutaneous 140 mg subcut Q2W 02/10/25 pen injector (Hortensia Vera) denosumab 60 mg/mL subcutaneous 60 mg subcut [id number] 12/17/24 02/10/25 syringe (Prolia) cetirizine 10 mg tablet 10 mg PO DAILY 02/10/2502/26 docusate sodium 100 mg capsule 100 mg PO BID PRN Const ipation 02/10/25 02/10/25 fluticasone fur. 200 mcg-umeclid 1 ea inhalation DAILY 02/10/25 02/10/25 62.5 mcg-vilant 25 mcg inhalat.powder (Trelegy Ellipta) methotrexate sodium 2.5 mg tablet 7.5 mg PO MO 5 02/10/25 Previous Rx's ?Medication ?Instructions ?Recorded cholecalciferol (vitamin D3) 25 25 mcg PO DAILY 3 joaquin hs #90 caps 10/20/24 mcg (1,000 unit) capsule folic acid 1 mg tablet 1 mg PO DAILY #90 tabs 11/21 calcium carbonate (Calcium 600) 600 mg PO DAILY #30 ta bs 12/09/24 Allergies Allergy/AdvReac Type Severity Reaction Status Date / Time lobster Allergy Nausea and Uncoded 02/10/25 08:49 Vomiting Review of Systems 2 Review of Systems: Yes all other systems are reviewed and are negative [facility] Past Medical History Attestation statement: The following information was validated with the patient. Source: old records reviewed and nursing notes reviewed Medical History Long-term use of Plaquenil Encounter for methotrexate monitoring Encounter for monitoring tocilizumab therapy Vitamin D deficiency Hypothyroxinemia Osteoarthritis (arthritis due to wear and tear of joints) Chronic venous insufficiency Subclavian artery stenosis Carotid arterial disease AAA (abdominal aortic aneurysm) Diabetes Elevated cholesterol COPD (chronic obstructive pulmonary disease) Asthma PVD (peripheral vascular disease) CAD (coronary artery disease) HTN (hypertension) Surgical History History of arthroplasty of right shoulder Hx of removal of cyst Hx of endoscopy History of colonoscopy Family History Family History Father No problems noted. Mother Family history of high blood pressure Hx of type 1 diabetes mellitus Social History Social History Are you a primary healthcare consulting manager to a significant other at home: No Do you presently have visiting nurse or other home services: Yes (CLINICAL PROJECT COORDINATOR - daily) Alcohol intake: never Patient Tobacco Use Status: Former Tobacco user Tobacco use type: Cigarette service: No Current occupational status: disabled Current occupation: left hand Physical Exam 2 Vital Signs: Vital Signs: Last Vital Signs Temp 98.5 F 02/10/25 12:00 Pulse 96 02/10/25 12:01 Resp 18 02/10/25 12:01 BP 136/61 02/10/25 12:00 Pulse Ox 95 02/10/25 12:01 O2 Del Method Nasal Cannula 02/10/25 12:01 O2 Flow Rate 1 02/10/25 12:01 BMI result Body Mass Index 25.4 Satting 92% on room air, hypertensive, vitals are otherwise WNL General: Well appearing, in no acute distress. Skin: Warm, dry, intact. No rashes or lesions. Head: Normocephalic, atraumatic. EENT: Hearing is intact b/l. Conjunctiva clear. Sclera is anicteric. PERRLA. EOM intact. Moist mucous membranes.? Cardiac: Chest wall symmetric. RRR Lungs: No obvious respiratory distress, diffuse expiratory wheezes and rhonchi Ext: No pitting edema, no calf tenderness bilaterally Neuro: AOx3. Normal speech. Ambulating with steady gait. Course Course Course Narrative: 1048 -- CBC showing slight leukopenia to 3.8. H&H stable. Chemistry without acute electrolyte abnormality requiring intervention. Random glucose 141, no gap. Troponin undetectable. Renal and liver function at baseline. Negative COVID, flu. Chest x-ray without evidence of pneumonia. EKG showing normal sinus rhythm with a rate of 96 beats per minute, QT 366, QTC 462, no acute ischemic changes or ST elevations. > patient has been treated with IV Solu-Medrol, albuterol and magnesium with mild improvement in symptoms. She is still satting between 90 and 91% on room air while at rest. Continues to endorse feeling short of breath. She is on Plavix however I am ordering a CTA chest to further evaluate patient's symptoms. patient/ CLINICAL PROJECT COORDINATOR agreeable. placed on 2L NC. 1200 -- chest CTA without evidence of pneumonia or pulmonary emboli. > on ambulatory O2, patient dropped to 87-88% on RA. given continued hypoxia and shortness of breath in the setting of asthma exacerbation, patient will be admitted to medicine for further evaluation. patient/ family agreeable. dr. fernandes to place admission orders. Medications Administered Discontinued Medications Generic Name Dose Route Start Last Admin Trade Name Freq PRN Reason Stop Dose Admin Albuterol Sulfate 2.5 mg/ 5 mg 02/10/25 09:38 02/10/25 09:42 Albuterol Sulfate 2.5 mg INHALE 02/10/25 09:39 5 mg ONCE ONE Administration Albuterol Sulfate 2.5 mg/ 0 mg 02/10/25 09:03 02/10/25 09:09 Albuterol/Ipratropium 3 ml INHALE 02/10/25 09:04 5 dose ONCE ONE Administration Magnesium Sulfate 2 gm in 50 mls @ 150 mls/hr 02/10/25 09:38 02/10/25 10:36 Magnesium Sulfate/H2o IV 02/10/25 09:57 Infused ONCE ONE Infusion Iohexol 100 ml 02/10/25 11:38 02/10/25 11:39 Iohexol 350 Mg/Ml 100 Ml Infus..Btl IV 02/10/25 11:39 65 ml ONCE ONE Administration Methylprednisolone Sodium Succinate 60 mg 02/10/25 09:00 02/10/25 09:15 Methylprednisolone Sod Succ 125 Mg/2 Ml Vial IVPUSH 02/10/25 09:01 60 mg ONCE ONE Administration Medical Decision Making Medical Decision Making [facility] Narrative: 74 year old female with past medical history significant for AAA, asthma/COPD, CAD, carotid arterial disease, chronic venous insufficiency, diabetes, HLD, HTN, PVD, RA, subclavian artery stenosis on baby aspirin and Plavix presents to the ED today with her CLINICAL PROJECT COORDINATOR with concerns of asthma exacerbation. She is hypertensive, satting 92% on room air. Vitals are otherwise WNL. She is in no acute respiratory distress however there are diffuse expiratory wheezes throughout lung rangel. Differential diagnosis includes asthma exacerbation, viral syndrome, pneumonia, bronchitis. Lower suspicion for pulmonary embolism, ACS, arrhythmia. Plan for viral swabs, chest x-ray, screening labs, ED bronch protocol and re- evaluation. Differential Diagnosis Differential Diagnoses: The differential diagnosis associated with the presentation includes as above. Admission/Observation Consideration of admission/observation: Escalation of care including admission/observation considered patient admitted to medicine for asthma exacerbation Consult Healthcare Provider Management of the patient was discussed with: Hospitalist (dr. fernandes) Lab Data [facility] Lab Attestation statement: I reviewed the patient's lab results. As above 02/10/25 09:12 02/10/25 09:12 Labs: Lab Results 02/10/25 02/10/25 Range/Units 09:12 09:21 WBC 3.8 L (4.8-10.8) X10*3/uL RBC 4.50 (4.20-5.50) X10*6/uL Hgb 13.7 (12.0-16.0) g/dl Hct 42.4 (37.0-47.0) % MCV 94.2 (80.0-98.0) fL MCH 30.4 (27.0-33.0) pg MCHC 32.3 (31.0-35.0) g/dl RDW 13.2 (11.0-16.0) % Plt Count 193 (160-400) X10*3/uL MPV 9.8 (9.4-12.3) fL Immature Gran % (Auto) 0.5 H (0.0-0.4) % Neut % (Auto) 46.2 (45-73) % Lymph % (Auto) 28.4 (20-40) % Yancey % (Auto) 7.7 (2-11) % Eos % (Auto) 16.4 H (0-4) % Baso % (Auto) 0.8 (0-2) % Lymph # (Auto) 1.1 L (1.2-4.9) X10*3/uL Yancey # (Auto) 0.3 (0.1-1.2) X10*3/uL Eos # (Auto) 0.6 H (0.0-0.4) X10*3/uL Baso # (Auto) 0.0 (0.0-0.2) X10*3/uL Abs Immat Gran (auto) 0.02 (0.00-0.03) X10*3/uL Absolute Neuts (auto) 1.7 L (2.0-8.3) x10*3/uL Absolute Nucleated RBC 0.000 (0.0-0.012) X10*3/uL Nucleated RBC % (auto) 0.0 (0.0-0.2) /100WBC VBG pH 7.35 (7.32-7.43) VBG pCO2 48 mmHg VBG pO2 51 mmHg VBG HCO3 27 H (22-26) mmol/L VBG O2 Saturation 74.0 % VBG Base Excess 0.8 mmol/L Sodium 145 (135-145) mmol/L Potassium 4.0 (3.3-5.1) mmol/L Chloride 110 H (96-108) mmol/L Carbon Dioxide 26 (22-29) mmol/L Anion Gap 13 (12-20) BUN 11 (9-16) mg/dL Creatinine 0.70 (0.5-1.4) mg/dL Estim Creat Clear Calc 63.0 Estimated GFR > 60 Random Glucose 141 H (60-115) mg/dL Calcium 8.6 D (8.4-10.2) mg/dL Magnesium 2.3 (1.6-2.6) mg/dL Total Bilirubin 0.6 (0.0-1.0) mg/dL AST 23 (5-31) U/L ALT 18 (0-31) U/L Alkaline Phosphatase 61 (39-117) U/L Troponin I High Sens < 2.7 (<3.5-17.0) ng/L Total Protein 6.9 (6.5-8.0) g/dL Albumin 4.0 (3.5-5.0) g/dL COVID-19 (TREVOR) Negative (Negative) COVID-19 Clin Com See Note Influenza Type A (LANNY) Negative (Negative) Influenza Type B (LANNY) Negative (Negative) Influenza A & B Note See Note Independent Interpretation I performed an independent interpretation of an: EKG, Plain X-Ray and CT Scan Interpretation: ekg showing NSR w/ rate of 96 bpm, no acute ischemic changes or st elevations chest xray without infiltrate or consolidation cta chest without evidence of PE Radiology Impression Discussion of test interpretation with radiology: I have reviewed the radiologist's reading. Radiologist Impression: Procedure(s): CT angio chest PE protocol Accession Number(s): [id number] cc: Teresita Munroe DO; Sharron Hernandez~ Report Number: [id number]: Total DLP = 321.00 mGy-cm Reason for Exam: hypoxic, tachy, sob, r/o PE EXAMINATION: CT CHEST ANGIOGRAPHY WITH IV CONTRAST INDICATION: hypoxic, tachy, sob, r/o PE COMPARISON: Comparison is made with the prior examination dated 518. TECHNIQUE: Helical CT scan of the chest was performed following administration of intravenous contrast (65 mL Omnipaque 350). The contrast bolus was timed to optimally opacify the pulmonary arteries. Thin sections were obtained through the pulmonary arteries. Coronal and sagittal reformatted images were generated. 3D/MIP reconstructed images are also obtained and reviewed. This CT exam was performed with one or more of the following dose reduction techniques: automated exposure control, adjustment of the mA and/or kV according to patient size, use of iterative reconstruction technique. DLP: 321 mGy-cm CHEST: THYROID: The thyroid gland is unremarkable. PULMONARY ARTERIES: No intraluminal filling defects are identified within the pulmonary arteries to suggest pulmonary emboli. LUNGS: There is mild to moderate emphysema. The lungs are clear. MEDIASTINUM: There is no mediastinal lymphadenopathy. JOVI: There is no hilar lymphadenopathy. CARDIOVASCULATURE: The heart is normal in size. There is no pericardial effusion. The thoracic aorta is normal in caliber. DEGREE OF CORONARY CALCIFICATION: not evaluable, due to dense contrast in the coronary arteries. PLEURA: There is no pleural effusion. No pneumothorax. MAIN AIRWAYS: The mainstem bronchi and proximal branches are patent. AXILLA: There is no axillary lymphadenopathy. UPPER ABDOMEN: The liver and spleen are enlarged. The visualized portions of the adrenals are unremarkable. BONES AND SOFT TISSUES: There is degenerative disc disease of the spine. CT/CT angio chest PE protocol IMPRESSION: 1. No evidence of pulmonary emboli. 2. Mild to moderate emphysema. The lungs are clear. 3. Hepatosplenomegaly. 4. Because mild to moderate emphysema is an independent risk factor for lung cancer, consider entering the patient into a program of yearly lung cancer screening with low dose chest CT. Electronically signed by: Eldon Paulino MD 02/10/2025 11:54 AM EDT RP Procedure(s): XR chest 2V Accession Number(s): [id number] cc: Ramonita Regan DO; Teresita Munroe DO~ Reason for Exam: sob EXAMINATION: XR CHEST CLINICAL INFORMATION: sob COMPARISON: January 21, 2025, September 17, 2024 TECHNIQUE: 2 views of the chest were obtained. FINDINGS: Lungs are clear and well aerated. Coarse interstitial markings are again noted. Heart size is within normal limits. There is no pleural effusion. Total shoulder replacement has been performed on the left. There is sclerosis and subchondral lucency with osteochondral step-off involving the left humeral head. Fracture was visible on the prior. It has been present since at least September 17, 2024 XR/XR chest 2V IMPRESSION: No acute disease. 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 Electronically signed by: Callum Moreno MD 02/10/2025 10:33 AM EDT RP Independent Historian Clinical information obtained from an independent historian. History obtained from or confirmed by: Other (CLINICAL PROJECT COORDINATOR) External Record Review External record reviewed: Inpatient record Chronic Conditions Patient?s care impacted by: Other (asthma/copd ) Social Determinants Patient?s care significantly limited by Social Determinants of Health including: Other Social Determinant of Health Critical Care Time Critical Care Time Critical Care Time: Yes Total Critical Care Time: 32 Attestation: Critical care time in the amount of 32 minutes has been provided to the patient in terms of direct patient care, frequent reevaluation, consultation with hospitalist, review and interpretation of medical data and results, and management of potentially life-threatening conditions. This is all outside of any medical procedures. Discharge Plan Discharge Clinical Impression: Asthma exacerbation Patient Disposition: Admitted As Inpatient
--- NOTE | 2025-02-10 09:00 | ECG_ITS ---
Test Reason : sob Blood Pressure : */* mmHG Vent. Rate : 96 BPM Atrial Rate : 96 BPM P-R Int : 130 ms QRS Dur : 62 ms QT Int : 366 ms P-R-T Axes : 68 1 43 degrees QTcB Int : 462 ms Normal sinus rhythm Cannot rule out Anterior infarct , age undetermined Abnormal ECG When compared with ECG of 27-Dec-2024 10:28, No significant change was found Referred By: Sharron Hernandez Electronically Signed By: VALENTIN GARZA MD
[2025-02-10] MEDS: Albuterol Sulfate 2.5 MG, Albuterol/Iprat 2.5/0.5MG 3 ML 3 ML INHALE (09:09)
[2025-02-10 09:20] LABS: MANUAL DIFF FLAG NO
[2025-02-10 09:25] LABS: Hematocrit 42.4 % (37.0-47.0); Hemoglobin 13.7 g/dl (12.0-16.0); Imm Gran Abs Auto 0.02 X10*3/uL (0.00-0.03); Imm Gran Pct Auto 0.5 % (0.0-0.4); Lymphocytes Absolute Auto 1.1 X10*3/uL (1.2-4.9); Mean Corpuscular HGB Conc 32.3 g/dl (31.0-35.0); Mean Corpuscular Hemoglobin 30.4 pg (27.0-33.0); Mean Corpuscular Volume 94.2 fL (80.0-98.0); NRBC Abs Auto 0.000 X10*3/uL (0.0-0.012); NRBC Pct Auto 0.0 /100WBC (0.0-0.2); Platelet Count 193 X10*3/uL (160-400); Red Blood Count 4.50 X10*6/uL (4.20-5.50); White Blood Count 3.8 X10*3/uL (4.8-10.8)
[2025-02-10 09:28] LABS: Venous Blood Gas Refer to POC result
[2025-02-10 09:29] LABS: VBG HCO3 27 mmol/L (22-26); VBG O2 % Saturation 74.0 %
[2025-02-10 09:34] LABS: Alanine Aminotransferase 18 U/L (0-31); Albumin Level 4.0 g/dL (3.5-5.0); Alkaline Phosphatase 61 U/L (39-117); Anion Gap 13 (12-20); Aspartate Amino Transferase 23 U/L (5-31); Blood Urea Nitrogen 11 mg/dL (9-16); Calcium 8.6 mg/dL (8.4-10.2); Carbon Dioxide 26 mmol/L (22-29); Chloride 110 mmol/L (96-108); Creatinine Clr Calc Pharmacy 63.0; Estimated Glomerular Filt Rate > 60; Magnesium 2.3 mg/dL (1.6-2.6); Potassium 4.0 mmol/L (3.3-5.1); Sodium 145 mmol/L (135-145); Total Protein 6.9 g/dL (6.5-8.0)
[2025-02-10] MEDS: Albuterol Sulfate 2.5 MG, Albuterol Sulfate (0.083%) 2.5 MG 5 MG INHALE (09:42)
[2025-02-10 09:43] LABS: Troponin-I High Sensitivity < 2.7 ng/L (<3.5-17.0)
[2025-02-10 09:45] LABS: COVID-19 Test Negative (Negative); IDNOW Serial# 55D5AD1C; IDNOW Serial# 58CA691E; Influenza B2 Negative (Negative)
--- OUTSIDE RECORDS SUMMARY | 2025-02-10 10:14 | XMS_ITS | Encounter Summary ---
Author Organization [employer] Address [address] [facility] [address] [place] [address] Care Team Providers Care Electrician Front Name Role Phone Teresita Munroe DO Primary Care Provider [phone] Encounter Details Date Type Department Care Team ([facility] st Contact Info) Description 12/18/2024 Telephone [facility] MEDICINE [address] [place] [address] Teresita Munroe DO [address] [place] [address] Social History Tobacco Use Types Packs/Day Years [...] Info) Description 04/10/2025 9:00 AM EST Telemedicine [facility] MEDICINE [address] [place] [id number] Ana Beach RN documented as of this encounter Visit Diagnoses Not on filedocumented in this encounter Additional Health Concerns Assessment Noted Time PHQ-9 Depression Total Score: 5 01/22/20 24 9:55 AM EDT documented as of this encounter Care Teams Electrician Front Relationship Specialty Start Date End Date Teresita Munroe DO [address] [place] [id number] PCP - General Family Medicine 07/28/14 documented as of this encounter
--- OUTSIDE RECORDS SUMMARY | 2025-02-10 10:15 | XMS_ITS | Encounter Summary ---
Author Organization [employer] Address [address] [facility] [address] [place] [address] Care Team Providers Care Steam Drier Tender Name Role Phone Teresita Munroe DO Primary Care Provider [phone] Reason for Visit * Reason Onset Date Comments Durable Medical Equipment 02/04/2025 Encounter Details Date Type Department Care Team (Late st Contact Info) Description 02/04/2025 Telephone [facility] MEDICINE [address] [place] [address] Teresita Munroe DO [address] [place] [address] Durable Medical Equipment Social History Tobacco Use [...] - 02/04/2025 11:53 AM EDT Tc from [facility] with [facility] requesting a new scrip for DME - Walker Rolator with seat - 3 pack of baby wipes x month To be sent to: - [facility] [address] [place] [address] [address] [facility] documented in this encounter Plan of Treatment Upcoming Encounters Date Type Department Care Team (Late st Contact Info) Description 04/10/2025 9:00 AM EST Telemedicine [facility] MEDICINE [address] [place] [address] Ana Beach RN documented as of this encounter Visit Diagnoses Not on filedocumented in this encounter Additional Health Concerns Assessment Noted Time PHQ-9 Depression Total Score: 5 01/22/20 24 9:55 AM EDT documented as of this encounter Care Teams Steam Drier Tender Relationship Specialty Start Date End Date Teresita Munroe DO [address] [place] [address] PCP - General Family Medicine 07/28/14 documented as of this encounter
--- OUTSIDE RECORDS SUMMARY | 2025-02-10 10:15 | XMS_ITS | Encounter Summary ---
Author Organization [employer] Address [address] [facility] [address] h [address] [place] [id number] Care Team Providers Care Hand Shoes Sewer Name Role Phone Teresita Munroe DO Primary Care Provider Encounter Details Date Type Department Care Team ([facility] Contact Info) Description 06/15/2022 Abstract [facility] AD[facility] DENTAL [address] [place] [address] Jelena Morgan DDS [address] [place] [address] Social History Tobacco Use Types Packs/Day Years [...] Info) Description 04/10/2025 9:00 AM EST Telemedicine [facility] MEDICINE [address] [place] [address] Ana Beach RN documented as of this encounter Visit Diagnoses Not on filedocumented in this encounter Care Teams Hand Shoes Sewer Relationship Specialty Start Date End Date Teresita Munroe DO [address] [place] [address] PCP - General Family Medicine 07/28/14 documented as of this encounter
--- OUTSIDE RECORDS SUMMARY | 2025-02-10 10:15 | XMS_ITS | Encounter Summary ---
Author Organization [employer] Address [address] [facility] [address] [place] [address] Care Team Providers Care Sba Underwriter Name Role Phone Teresita Munroe DO Primary Care Provider + [phone] Encounter Details Date Type Department Care Team ([facility] st Contact Info) Description 09/14/2023 Orders Only [facility] MEDICINE [address] [place] [address] ProviderFlor MD Social History Tobacco Use Types [...] Info) Description 04/10/2025 9:00 AM EST Telemedicine [facility] MEDICINE [address] [place] [address] Ana Beach RN documented as of this [...] on filedocumented in this encounter Care Teams Sba Underwriter Relationship Specialty Start Date End Date Teresita Munroe DO [address] [place] [address] PCP - General Family Medicine 07/28/14 documented as of this encounter
--- OUTSIDE RECORDS SUMMARY | 2025-02-10 10:15 | XMS_ITS | Encounter Summary ---
Author Organization [employer] Address [address] [facility] [address] [place] [address] Care Team Providers Care Field Sales Agent Name Role Phone Teresita Munroe DO Primary Care Provider Encounter Details Date Type Department Care Team (Latest Contact Info) Description 2019 Abstract [facility] CONVERSIONS Dental, Provider, DDS Social History Tobacco [...] 04/10/2025 9:00 AM EST Telemedicine [facility] MEDICINE [address] [place] [address] Ana Beach RN documented as of this encounter Visit Diagnoses Not on filedocumented in this encounter Care Teams Field Sales Agent Relationship Specialty Start Date End Date Teresita Munroe DO [address] [place] [address] PCP - General Family Medicine 07/28/14 documented as of this encounter
--- OUTSIDE RECORDS SUMMARY | 2025-02-10 10:15 | XMS_ITS | Clinical Summary ---
Author Organization [employer] Address [address] [facility] [address] [place] [address] Care Team Providers Care House Worker Name Role Phone Teresita Munroe DO Primary Care Provider [phone] Allergies Active Allergy Reactions Criticality Noted Date [...] oral route twice daily Active sodium chloride ([place]al [place]) 0.65 % nasal sprayIndication s:COVID-19 1-2 sprays [...] unspecified site, unspecified whether rheumatoid factor present ([facility]) TAKE 1 TABLET BY MOUTH EVERY 8 [...] complication, without long-term current use of insulin ([facility]) 1 each 3 times daily. 100 each [...] 2 diabetes mellitus without complication, unspecified whether dietetic technician insulin use ([facility]) TAKE 1 TABLET BY MOUTH TWICE DAILY [...] predniSONE (Deltasone) 10 MG tabletIndicatio ns:COPD exacerbation ([facility]) Take 6 tabs PO daily x 2 [...] (will not trigger notification to Pharmacy)) Umeclidinium [place] (Incruse Ellipta) 62.5 MCG/ACT aerosol powderIndicatio ns:Chronic [...] Encounters Date Type Department Care Team Description 02/10/2025 Orders Only GENERIC EXTERNAL DATA DEPARTMENT Provider, Generic External Data 02/09/[address] [facility] [address] [place] [phone] Teresita Munroe DO 02/04/[address] [address] Teresita Munroe DO Durable Medical Equipment 01/26/2025 10:30 AM EDT Telemedicine [address] [address] Ana Beach RN Long-term current use of opiate analgesic 01/26/[address] [address] Teresita Munroe DO Prior Authorization (PA: benzonatate (Tessalon Perles) 100 MG capsule ) 01/26/[address] [facility] [place] [address] Ana Beach, managing partner pain of both shoulders (Primary Dx) 01/23/2025 10:00 AM EDT Office Visit [address] [address] Teresita Munroe DO Type 2 diabetes mellitus [...] counseling; Exercise counseling 01/23/2025 Travel 01/23/[address] [facility] [address] [place] [phone] Chris Emanuel MD Chronic obstructive pulmonary disease, unspecified COPD type (CMS/HCC) 01/21/2025 10:00 AM EDT [facility] [address] [address] Charmaine Rowland MD COPD exacerbation (CMS/HCC) (Primary Dx) 01/21/[address] [address] Teresita Munroe DO Chart Prep 01/21/2025 Travel 01/12/2025 Travel 01/01/2025 10:00 AM EDT [facility] [address] [address] Teresita Munroe DO COPD exacerbation ([facility]) (Primary Dx); Acute URI; Chronic obstructive pulmonary disease, unspecified COPD type (CMS/HCC) 01/01/2025 Travel 12/31/[address] [address] Teresita Munroe DO telephone call 12/27/2024 Orders Only GENERIC EXTERNAL DATA DEPARTMENT Provider, Generic External Data 12/26/[address] [address] Teresita Munroe DO Durable Medical Equipment 12/22/[address] [address] Ana Beach RN [employer] Renewal today 12/18/[address] [address] Teresita Munroe DO 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 complication, unspecified whether dietetic technician insulin use (CMS/HCC) 12/18/[address] [address] Teresita Munroe DO 12/16/2024 Orders Only GENERIC EXTERNAL DATA DEPARTMENT Provider, Generic External Data 12/11/2024 Orders Only GENERIC EXTERNAL DATA DEPARTMENT Provider, Generic External Data 11/19/[address] [place] [address] Teresita Munroe, Chronic obstructive pulmonary disease, unspecified COPD type ([facility]); 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 complication, unspecified whether dietetic technician insulin use ([facility]) 11/13/[address] [facility] [address] [place] [address] Teresita Munroe DO Chronic pain of both [...] Description 04/10/2025 9:[address] [facility] [address] [place] [phone] Ana Beach, RN Health Maintenance Due [...] Cancer Screening 11/10/2025 Lipid Panel 12/11/2025 12/11/2024, 11/0 11/2023, 10/17/2022, Additional history exists Tobacco Screening [...] Procedure Name Priority Date/Time Associated Diagnosis Comments VENOUS BLOOD GAS Routine 02/10/2025 9:21 AM EDT COVID-19 ID NOW (SANCHES) Routine 02/10/2025 9:12 AM EDT HIGH SENSITIVITY TROPONIN I Routine 02/10/2025 9:12 AM EDT MAGNESIUM Routine 02/10/2025 9:12 AM EDT COMPREHENSIVE METABOLIC PANEL Routine 02/10/2025 9:12 AM EDT CBC WITH AUTO DIFFERENTIAL Routine 02/10/2025 9:12 AM EDT INFLUENZA A B2 ID NOW (SANCHES) Routine 02/10/2025 9:12 AM EDT POCT GLYCATED HEMOGLOBIN, TOTAL Routine 01/23/2025 10:42 AM EDT 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 complication, without long-term current use of insulin ([facility]) POCT GLUCOSE Routine 01/23/2025 10:42 AM EDT [...] Relevant to Health Maintenance Results * (ABNORMAL) VENOUS BLOOD GAS (02/10/2025 9:21 AM EDT) VBG pH 7.35 7.32 - 7.43 [facility] Comment:METER #: [id number] additional_comment: Castro nguyễn VBG PCO2 48 mmHg [facility] Comment:METER #: [id number] additional_comment: Castro nguyễn VBG PO2 51 mmHg [facility] Comment:METER #: [id number] additional_comment: Castro nguyễn VBG Base Excess 0.8 mmol/L [facility] Comment:METER #: [id number] additional_comment: Castro nguyễn VBG HCO3 27(H) 22 - 26 mmol/L [facility] Comment:METER #: [id number] additional_comment: Castro nguyễn O2 Sat, Yan 74.0 % [facility] Comment:METER #: [id number] additional_comment: Castro rameybaraquel 02/10/2025 9:21 AM EDT 02/10/2025 9:29 AM EDT us Generic External Data Provider LAB BLOOD ORDERAB LES Final Result [facility] [address] [place] [phone] * Influenza A B2 ID NOW (Sanches) (02/10/2025 9:12 AM EDT) IDNOW SERIAL# [id number] [facility] Influenza A Negative Negative [facility] Influenza B2 Negative Negative [facility] Influenza A B2 Note See Note [facility] Comment:The Sanches ID NOW In fluenza A B2 test is used for thequalitative detection of influenza A and B from patientswith signs and symptoms of respiratory infection.Negative results do not preclude influenza virus infectionand should not be used as the sole basis for diagnosis,treatment or other patient management decisions.There is a risk of false negative results due to thepresence of variants in the viral targets of the assay, lowlevels of virus in the specimen and co- infection withRespiratory Syncytial Virus. 02/10/2025 9:12 AM EDT 02/10/2025 9:17 AM EDT Generic External Data Provider LAB MICROBIOLOGY - GENERAL ORDERABLES Final Result [facility] [address] [place] [phone] * COVID-19 ID NOW (SANCHES) (02/10/2025 9:12 AM EDT) IDNOW SERIAL# [id number] [facility] COVID-19 TEST Negative Negative [facility] COVID-19 NOTE See Note [facility] Comment: Results are for the identification of SARS-CoV2 RNA. TheSARS-CoV2 RNA is generally detectable in respiratory samplesduring the acute phase of infection. Positive results areindicative of the presence of SARS-CoV-2 RNA; clinicalcorrelation with patient history and other diagnosticinformation is necessary to determine patient infectionstatus. Positive results do not rule out bacterial infectionor co- infection with other viruses.Testing facilities within the [facility] and [facility] are required to report all positive results tothe appropriate public health authorities.Negative results should be treated as presumptive and, ifinconsistent with clinical signs and symptoms or necessaryfor patient management, should be tested with differentauthorized or cleared molecular tests. Negative results donot preclude SARS-CoV2 RNA infection and should not be usedas the sole basis for patient management decisions. Negativeresults should be considered in the context of a patient'srecent exposures, history and the presence of clinical signsand symptoms consistent with COVID-19.This test has been authorized by the FDA under an EmergencyUse Authorization (EUA) for use by authorized laboratories.Testing performed on the Quibly ID NOW utilizing NAAT. 02/10/2025 9:12 AM EDT 02/10/2025 9:17 AM EDT [employer] External Data Provider LAB MOLECULAR JOSE ALEJANDRO GNOSTICS ORDERABLES Final Result Performing Organization Address [facility] Co de Phone Number [facility] [address] [place] [phone] * High Sensitivity Troponin I (02/10/2025 9:12 AM EDT) Only the most recent of2 resultswithin the time period is included. Pathologist [facility] TROPONIN I HIGH SENSITIVITY <2.7 <3.5 - 17.0 ng/L [facility] Comment:The Sanches high sens itivity Troponin-I results should beused in conjunction with other diagnostic information suchas ECG, clinical observations and information, and patientsymptoms to aid in the diagnosis of NH. 02/10/2025 9:12 AM EDT 02/10/2025 9:17 AM EDT Generic External Data Provider LAB BLOOD ORDERAB LES Final Result Performing Organization Address [facility] Co de Phone Number [facility] [address] [place] [phone] * (ABNORMAL) CBC auto differential (02/10/2025 9:12 AM EDT) Only the most recent of3 resultswithin the time period is included. White Blood Count 3.8(L) 4.8 - 10.8 X10*3/uL [facility] Red Blood Count 4.50 4.20 - 5.50 X10*6/uL [facility] Hemoglobin 13.7 12.0 - 16.0 g/dl [facility] Hematocrit 42.4 37.0 - 47.0 % [facility] Mean Corpuscular Volume 94.2 80.0 - 98.0 fL [facility] Mean Corpuscular Hemoglobin 30.4 27.0 - 33.0 pg [facility] Mean Corpuscular HGB Conc 32.3 31.0 - 35.0 g/dl [facility] Red Cell Distribution Width 13.2 11.0 - 16.0 % [facility] Platelet Count 193 160 - 400 X10*3/uL [facility] Mean Platelet Volume 9.8 9.4 - 12.3 fL [facility] Neutrophils Percent Auto 46.2 45 - 73 % [facility] Imm Gran Pct Auto 0.5(H) 0.0 - 0.4 % [facility] Lymphocytes Percent Auto 28.4 20 - 40 % [facility] Monocytes Percent Auto 7.7 2 - 11 % [facility] Eosinophils Percent Auto 16.4(H) 0 - 4 % [facility] Basophils Percent Auto 0.8 0 - 2 % [facility] NRBC Pct Auto 0.0 0.0 - 0.2 /100WBC [facility] Neutrophils Absolute Auto 1.7(L) 2.0 - 8.3 x10*3/uL [facility] Imm Gran Abs Auto 0.02 0.00 - 0.03 X10*3/uL [facility] Lymphocytes Absolute Auto 1.1(L) 1.2 - 4.9 X10*3/uL [facility] Monocytes Absolute Auto 0.3 0.1 - 1.2 X10*3/uL [facility] Eosinophils Absolute Auto 0.6(H) 0.0 - 0.4 X10*3/uL [facility] Basophils Absolute Auto 0.0 0.0 - 0.2 X10*3/uL [facility] NRBC Abs Auto 0.000 0.0 - 0.012 X10*3/uL [facility] 02/10/2025 9:12 AM EDT 02/10/2025 9:17 AM EDT Generic External Data Provider LAB BLOOD ORDERAB LES Final Result Performing Organization Address [facility] Co de Phone Number [facility] [address] [place] [phone] * Magnesium (02/10/2025 9:12 AM EDT) Only the most recent of2 resultswithin the time period is included. Magnesium 2.3 1.6 - 2.6 mg/dL [facility] 02/10/2025 9:12 AM EDT 02/10/2025 9:17 AM EDT Generic External Data Provider LAB BLOOD ORDERAB LES Final Result Performing Organization Address [facility] de Phone Number [facility] [address] [place] [phone] * (ABNORMAL) Comprehensive Metabolic Panel (02/10/2025 9:12 AM EDT) Only the most recent of3 resultswithin the time period is included. Sodium 145 135 - 145 mmol/L [facility] Potassium 4.0 3.3 - 5.1 mmol/L [facility] Chloride 110(H) 96 - 108 mmol/L [facility] Carbon Dioxide 26 22 - 29 mmol/L [facility] Anion Gap 13 12 - 20 [facility] Urea Nitrogen (BUN) 11 9 - 16 mg/dL [facility] Creatinine, Serum 0.70 0.5 - 1.4 mg/dL [facility] Creatinine Clr Calc Pharmacy 63.0 [facility] Comment:Provided height and weight: 160.02 cm,65.1 kg.eGFR (calculated from the MDRD study equation) and eCrCl(calculated from the Cockcroft-Gault equation) are based ondifferent parameters and may not yield comparable results.If eCrCl result is absurd, please check patient'sheight/weight. Estimated Glomerular Filt Rate >60 [facility] Comment:Chronic Kidney Disea se: Estimated GFR < 60 mL/min/[id number] Kidney Disease: Estimated GFR < 15 mL/min/1.73m2 Glucose 141(H) 60 - 115 mg/dL [facility] Calcium 8.6 8.4 - 10.2 mg/dL [facility] Bilirubin, Total 0.6 0.0 - 1.0 mg/dL [facility] Aspartate Amino Transferase 23 5 - 31 U/L [facility] Alanine Aminotransferase 18 0 - 31 U/L [facility] Total Protein 6.9 6.5 - 8.0 g/dL [facility] Albumin Level 4.0 3.5 - 5.0 g/dL [facility] Alkaline Phosphatase 61 39 - 117 U/L [facility] 02/10/2025 9:12 AM EDT 02/10/2025 9:17 AM EDT us Generic External Data Provider LAB BLOOD ORDERAB LES Final Result Performing Organization Address City/State/[facility] Co de Phone Number [facility] [address] [place] [phone] * (ABNORMAL) POCT HGB A1C (01/23/2025 10:42 AM EDT) Hemoglobin A1C 6.2(A) 4.0 - 5.7 % QC Media Lot # [id number] Lot# Expiration Date Blood 01/23/2025 10:4 2 AM EDT us Teresita Munroe DO POINT OF CARE TEST ENTER/GUME T ORDERABLES Final Result * POCT Glucose (01/23/2025 10:42 AM EDT) Glucose Blood, POC 91 60 - 200 mg/dL QC Media Lot # [id number] Lot# Expiration Date [id number] Blood Capillary blood specimen / Unknown 01/23/2025 10:42 AM EDT Teresita Ludwig BEAVERS POINT OF CARE TEST ENTER/GUME T ORDERABLES Final Result * Influenza B (ID NOW Rapid Molecular) (01/21/2025 10:01 AM EDT) Only the most recent of2 resultswithin the time period is included. Influenza B Negative Negative, Indeterminate [facility] Swab 01/21/2025 10:0 1 AM EDT Charmaine Salas MD POINT OF CARE TEST EN TER/EDIT ORDERABLES Final Result Performing Organization Address [facility] Co de Phone Number [facility] [address] [place] [phone] * Influenza A (ID NOW Rapid Molecular) (01/21/2025 10:01 AM EDT) Only the most recent of2 resultswithin the time period is included. Pathologist [facility] Influenza A Negative Negative, Indeterminate [facility] Swab 01/21/2025 10:0 1 AM EDT Charmaine Salas MD POINT OF CARE TEST EN TER/EDIT ORDERABLES Final Result Performing Organization Address [facility] Co de Phone Number [facility] [address] [place] [phone] * POCT Rapid COVID Ag (01/21/2025 10:01 AM EDT) Only the most recent of2 resultswithin the time period is included. Rapid COVID Ag Negative [facility] Swab 01/21/2025 10:0 1 AM EDT Charmaine Salas MD POINT OF CARE TEST EN TER/EDIT ORDERABLES Final Result [facility] [address] [place] [address] [phone] * XR Chest 2 Views (01/21/2025 9:48 AM EDT) Only the most recent of2 resultswithin the time period is included. Anatomical Region Laterality Modality Chest Radiographic Dayana ging 01/21/2025 9:48 AM EDT Narrative 01/21/2025 12:24 PM EDT [facility] [address] [place] [address] XRay Report Signed Patient: Aspen Farah MR#: [id number] 4 : 1950 Acct:[id number] Age/Sex: 74 / F ADM Date: 01/21/25 [facility]: Charmaine Salas MD Ordering Physician: Charmaine Rowland MD Date of Service: 01/21/25 Procedure(s): XR chest 2V Accession Number(s): [id number] cc: Charmaine Rowland MD EXAMINATION: XR CHEST [...] 01/21/25 1222 DD/ 0948 TD/TT: 01/21/25 1000 Beam Carrier Hauler Pusher: Procedure Note Donotuseinterpreter, Image - 01/21/[address] [address] XRay Report Signed Patient: Aspen FarahMR#: [id number] 4 : 9Acct:[id number] Age/Sex: 74 / FADM Date: 01/21/25 Loc: [facility] Attending Dr: Charmaine Salas MD Ordering Physician: Charmaine Rowland MD Date of Service: 01/21/25 Procedure(s): XR chest 2V Accession Number(s): [id number] cc: Charmaine Rowland MD EXAMINATION: XR CHEST [...] Sky Holland MD 01/21/2025 12:22 PM EDT Dictated By: Sky Roger MD Signed By: <Electronically signed by Sky Rowland MDin OV> 01/21/25 1222 DD/ 0948 TD/TT: 01/21/25 1000 Beam Carrier Hauler Pusher: us Charmaine Salas MD IMG XR PROCEDURES Fin al Result * SARS-CoV-2 RNA, Influenza A/B, and RSV RNA, Ql NAAT (12/27/2024 10:52 AM EDT) Influenza A PCR NEGATIVE Negative [facility] Influenza B PCR NEGATIVE Negative [facility] Resp Syncy Virus RNA Qual PCR NEGATIVE Negative [facility] SARS COV2 PCR NEGATIVE Negative [facility] Comment:All test results mus t [...] use by authorized laboratories.Testing performed on the [employer] GeneXpert utilizingreal-time RT-PCR.All SARS CoV2 and positive influenza A/B results arereported to [facility]. 12/27/2024 10:5 2 AM EDT 12/27/2024 10:55 AM EDT us Generic External Data Provider LAB MICROBIOLOGY - GENERAL ORDERABLES Final Result [facility] [address] [place] [phone] * Vitamin D, 25-Hydroxy, Total, Immunoassay (12/16/2024 11:05 AM EDT) Vitamin D 25-OH Total 33.4 >30 ng/mL [facility] Comment: Health Based Reference Values*< 20 ng/mL [id number] ng/mL Insufficient> 30 ng/mL Sufficient*Santos MARCELINO. N [...] ORDERAB LES Final Result Performing Organization Address [facility] Co de Phone Number [facility] [address] [place] [phone] * Creatinine, Serum (12/16/2024 11:05 AM EDT) Creatinine, Serum 0.68 0.5 - 1.4 mg/dL [facility] Estimated Glomerular Filt Rate >60 [facility] Comment:Chronic Kidney Disea se: Estimated GFR < 60 mL/min/1.45v1Yjctlr Kidney Disease: Estimated GFR < 15 mL/min/1.73m2 12/16/2024 11:0 5 AM EDT 12/16/2024 11:05 AM EDT Generic External Data Provider LAB BLOOD ORDERAB LES Final Result Performing Organization Address [facility] Co de Phone Number [facility] [address] [place] [address] [phone] * Phosphate (As Phosphorus) (12/16/2024 11:05 AM EDT) Phosphorus 3.7 2.7 - 4.5 mg/dL [facility] 12/16/2024 11:0 5 AM EDT 12/16/2024 11:05 AM EDT us Generic External Data Provider LAB BLOOD ORDERAB LES Final Result Performing Organization Address [facility] Co de Phone Number [facility] [address] [place] [phone] * (ABNORMAL) PTH, Intact Without Calcium (12/16/2024 11:05 AM EDT) Parathyroid Hormone, Intact 78.8(H) 8.7 - 77.1 pg/mL [facility] 12/16/2024 11:0 5 AM EDT 12/16/2024 11:05 AM EDT Generic External Data Provider LAB BLOOD ORDERAB LES Final Result Performing Organization Address [facility] de Phone Number [facility] [address] [place] [phone] * Calcium, Ionized (12/16/2024 11:05 AM EDT) Calcium, Ionized 5.2 4.7 - 5.5 mg/dL [facility] Comment:THIS TEST WAS PERFOR MED AT:[employer] [address] [phone] MACEDO MD 12/16/2024 11:0 5 AM EDT 12/16/2024 11:05 AM EDT us Generic External Data Provider LAB BLOOD ORDERAB LES Final Result Performing Organization Address [facility] Co de Phone Number [facility] [address] [place] [phone] * Calcium (12/16/2024 11:05 AM EDT) Calcium 9.1 8.4 - 10.2 mg/dL [facility] 12/16/2024 11:0 5 AM EDT 12/16/2024 11:05 AM EDT us Generic External Data Provider LAB BLOOD ORDERAB LES Final Result Performing Organization Address City/[facility]/ZIP Co de Phone Number [facility] [address] [place] [phone] * Albumin (12/16/2024 11:05 AM EDT) Albumin Level 4.0 3.5 - 5.0 g/dL [facility] 12/16/2024 11:0 5 AM EDT 12/16/2024 11:05 AM EDT Generic External Data Provider LAB BLOOD ORDERAB LES Final Result Performing Organization Address [facility] de Phone Number [facility] [address] [place] [phone] * T-SPOT??.TB (12/11/2024 9:09 AM EDT) T Spot TB Negative Negative [facility] Comment:A negative test resu lt [...] as aquantitative test. TS PANEL A 0 [facility] TS PANEL B 0 [facility] Negative Control Passed [facility] Positive Control Passed [facility] Comment:For additional infor emmanuelle, please refer tohttp://education.[employer]/faq/DFK596(This link is being provided for informational/educational purposes only.)REPORT COMMENT:REC'D AT [facility] TEST WAS PERFORMED AT:[employer] [id number] [place] [address]TRNXBLSJOSH CLIFFORD MD,PHD 12/11/2024 9:09 AM EDT 12/11/2024 9:09 AM EDT Generic External Data Provider LAB BLOOD ORDERAB LES Final Result Performing Organization Address [facility] de Phone Number [facility] [address] [place] [phone] * Hepatitis Panel, General (12/11/2024 9:09 AM EDT) Hepatitis A IgM Nonreactive Nonreactive [facility] Comment:IgM antibodies to GUERRA V not detected; does not exclude earlyacute or recovered HAV infection. ~Hepatitis B Surface Antibody REACTIVE Nonreactive [facility] Comment:REACTIVE: > 11.99 mI U/mL Hepatitis B Core Antibody Nonreactive Nonreactive [facility] Hepatitis C Antibody Nonreactive Nonreactive [facility] Comment:Antibodies to HCV no t detected; does not exclude early acuteHCV infection. Hepatitis B Surface Ag Negative Negative [facility] 12/11/2024 9:09 AM EDT 12/11/2024 9:09 AM EDT Generic External Data Provider LAB BLOOD ORDERAB LES Final Result Performing Organization Address [facility] de Phone Number [facility] [address] [place] [phone] * (ABNORMAL) Sed Rate by Modified Han[place]ren (12/11/2024 9:09 AM EDT) Erythrocyte Sedimentation Rate 33(H) 0 - 20 MM/HR [facility] Comment:Patients with polycy themia and many hemoglobin abnormalitiesmay have depressed sed rates whereas patients with anemiamay have elevated sed rates. 12/11/2024 9:09 AM EDT 12/11/2024 9:09 AM EDT us Generic External Data Provider LAB BLOOD ORDERAB LES Final Result Performing Organization Address [facility]/ZIP Co de Phone Number [facility] [address] [place] [phone] * (ABNORMAL) C-reactive Protein (12/11/2024 9:09 AM EDT) C Reactive Protein 0.69(H) < or = 0.50 mg/dL [facility] 12/11/2024 9:09 AM EDT 12/11/2024 9:09 AM EDT Generic External Data Provider LAB BLOOD ORDERAB LES Final Result Performing Organization Address [facility] Co de Phone Number [facility] [address] [place] [phone] * (ABNORMAL) Lipid Panel, Standard (12/11/2024 9:09 AM EDT) Triglycerides 301(H) <150 mg/dL [facility] Comment:Desirable Triglyceri de: less than 150 mg/dLBorderline High Triglyceride 150-199 mg/dLHigh Triglyceride: 200-499 mg/dLVery High Triglyceride: greater than or equal to 5OO mg/dL Cholesterol 165 <200 mg/dL [facility] Comment:Desirable Cholestero l: less than 200 mg/dLBorderline High Cholesterol: 200-239 mg/dLHigh Cholesterol: greater than 239 mg/dL LDL Cholesterol Calculated 70 <100 mg/dL [facility] Comment:Desirable LDL: less than 100 mg/dLNear Optimal/Above Optimal LDL: 110- 129 mg/dLBorderline High LDL: 130-159 mg/dLHigh LDL: 160-189 mg/dLVery High LDL: greater than or equal to 190 mg/dL HDL Cholesterol 35(L) >40 mg/dL [facility] Comment:Desirable HDL: great er than 40 mg/dL Note: This HDL assay may give artificially low results in patients with liver disease. 12/11/2024 9:09 AM EDT 12/11/2024 9:09 AM EDT us Generic External Data Provider LAB BLOOD ORDERAB LES Final Result Performing Organization Address [facility] Co de Phone Number [facility] [address] [place] [address] [phone] * Albumin, Random Urine W/Creatinine (04/09/2024 9:28 AM EST) Creatinine, Urine 128.14 mg/dL [facility] Microalbumin Urine 12.0 mg/L [facility] Microalbum Creatinine Ratio Ur 9.3 <30 ug/mg cr [facility] Comment:Albumin/Creatinine R atio Reference Ranges: Normal: < 30 ug/mg creatinine Microalbuminuria: 30 - 300 ug/mg creatinineClinical Albuminuria: > 300 ug/mg creatinine Urine (Urine, Random) 04/09/2024 9:28 AM EST 04/09/2024 9:40 AM EST us Teresita Munroe DO LAB URINE ORDERABLES Final R esult Performing Organization Address [facility] Co de Phone Number [facility] [address] [place] [phone] * Hm Colonoscopy (11/10/2020 10:20 AM EDT) us Historical Provider HEALTH MAINTENANCE Final Result from Last 3 Months or Most Recently Relevant to Health Maintenance Insurance [facility] INTERMEDIATE OPTIONS (HMO D-SNP) [facility] Care Teams House Worker Relationship Specialty Start Date End Date Teresita Munroe DO [address] [place] [address] PCP - General Family Medicine 07/28/14
--- OUTSIDE RECORDS SUMMARY | 2025-02-10 10:15 | XMS_ITS | Encounter Summary ---
Author Organization [employer] Address 75 [facility] 7t [place] [address] Care Team Providers Care Non Destructive Testing Scientist Name Role Phone Teresita Munroe DO Primary Care Provider [phone] Encounter Details Date Type Department Care Team (Late st Contact Info) Description 02/10/2025 Orders Only GENERIC EXTERNAL DATA [...] Info) Description 04/10/2025 9:00 AM EST Telemedicine [facility] [address] [place] [address] Ana Beach RN documented as of this encounter Procedures Procedure Name Priority Date/Time Associated Diagnosis Comments VENOUS BLOOD GAS Routine 02/10/2025 9:21 AM EDT INFLUENZA A B2 ID NOW ([facility]CH[facility]) Routine 02/10/2025 9:12 AM EDT COVID-19 ID NOW ([facility]) Routine 02/10/2025 9:12 AM EDT HIGH SENSITIVITY TROPONIN I Routine 02/10/2025 9:12 AM EDT CBC WITH AUTO DIFFERENTIAL Routine 02/10/2025 9:12 AM EDT MAGNESIUM Routine 02/10/2025 9:12 AM EDT COMPREHENSIVE METABOLIC PANEL Routine 02/10/2025 9:12 AM EDT documented in this encounter Results * (ABNORMAL) VENOUS BLOOD GAS (02/10/2025 9:21 AM EDT) VBG pH 7.35 7.32 - 7.43 [facility] Comment:METER #: [id number] additional_comment: Cb audenj VBG PCO2 48 mmHg [facility] Comment:METER #: [id number] additional_comment: Cb audenj VBG PO2 51 mmHg [facility] Comment:METER #: [id number] additional_comment: Castro nguyễn VBG Base Excess 0.8 mmol/L [facility] Comment:METER #: [id number] additional_comment: Castro nguyễn VBG HCO3 27(H) 22 - 26 mmol/L [facility] Comment:METER #: [id number] additional_comment: Castro nguyễn O2 Sat, Yan 74.0 % [facility] Comment:METER #: [id number] additional_comment: Castro nguyễn 02/10/2025 9:21 AM EDT 02/10/2025 9:29 AM EDT us Generic External Data Provider LAB BLOOD ORDERAB LES Final Result [facility] [address] [place] [phone] * COVID-19 ID NOW ([employer]) (02/10/2025 9:12 AM EDT) IDNOW SERIAL# [id number] [facility] COVID-19 TEST Negative Negative [facility] COVID-19 NOTE See Note [facility] Comment: Results are for the identification of SARS-CoV2 RNA. TheSARS-CoV2 RNA is generally detectable in respiratory samplesduring the acute phase of infection. Positive results areindicative of the presence of SARS-CoV-2 RNA; clinicalcorrelation with patient history and other diagnosticinformation is necessary to determine patient infectionstatus. Positive results do not rule out bacterial infectionor co- infection with other viruses.Testing facilities within the [facility] and itsterritories are required to report all positive results [...] use by authorized laboratories.Testing performed on the [facility] ID NOW utilizing NAAT. 02/10/2025 9:12 AM EDT 02/10/2025 9:17 AM EDT Generic External Data Provider LAB MOLECULAR JOSE ALEJANDRO GNOSTICS ORDERABLES Final Result Performing Organization Address [facility] Co de Phone Number [facility] [address] [place] [address] [phone] * Influenza A B2 ID NOW ([facility]) (02/10/2025 9:12 AM EDT) [facility] IDNOW SERIAL# [id number] [facility] Influenza A Negative Negative [facility] Influenza B2 Negative Negative [facility] Influenza A B2 Note See Note [facility] Comment:The [place] ID NOW In [...] LAB MICROBIOLOGY - GENERAL ORDERABLES Final Result Performing Organization Address [facility] Co de Phone Number [facility] [address] [place] [address] [phone] * High Sensitivity Troponin I (02/10/2025 9:12 AM EDT) [facility] TROPONIN I HIGH SENSITIVITY <2.7 <3.5 - 17.0 ng/L [facility] Comment:The [facility] high sens itivity Troponin-I results should beused in conjunction with other diagnostic information suchas ECG, clinical observations and information, and patientsymptoms to aid in the diagnosis of [place]. 02/10/2025 9:12 AM EDT 02/10/2025 9:17 AM EDT Generic External Data Provider LAB BLOOD ORDERAB LES Final Result Performing Organization Address [facility] Co de Phone Number [facility] [address] [place] [address] [phone] * Magnesium (02/10/2025 9:12 AM EDT) Pathologist [facility] Magnesium 2.3 1.6 - 2.6 mg/dL [facility] 02/10/2025 9:12 AM EDT 02/10/2025 9:17 AM EDT Generic External Data Provider LAB BLOOD ORDERAB LES Final Result Performing Organization Address [facility] de Phone Number [facility] [address] [place] [address] [phone] * (ABNORMAL) Comprehensive Metabolic Panel (02/10/2025 9:12 AM EDT) Sodium 145 135 - 145 mmol/L [facility] Potassium 4.0 3.3 - 5.1 mmol/L [facility] Chloride 110(H) 96 - 108 mmol/L [facility] Carbon Dioxide 26 22 - 29 mmol/L [facility] Anion Gap 13 12 - 20 [facility] Urea Nitrogen (BUN) 11 9 - 16 mg/dL [facility] Creatinine, Serum 0.70 0.5 - 1.4 mg/dL [facility] Creatinine Clr Calc Pharmacy 63.0 [facility] Comment:Provided height and weight: 160.02 cm,65.1 kg.eGFR (calculated from the MDRD study equation) and eCrCl(calculated from the Cockcroft-Gault equation) are based ondifferent parameters and may not yield comparable results.If eCrCl result is absurd, please check patient'sheight/weight. Estimated Glomerular Filt Rate >60 [facility] Comment:Chronic Kidney Disea se: Estimated GFR < 60 mL/min/1.70u0Zrbaay Kidney Disease: Estimated GFR < 15 mL/min/1.73m2 Glucose 141(H) 60 - 115 mg/dL [facility] Calcium 8.6 8.4 - 10.2 mg/dL [facility] Bilirubin, Total 0.6 0.0 - 1.0 mg/dL [facility] Aspartate Amino Transferase 23 5 - 31 U/L [facility] Alanine Aminotransferase 18 0 - 31 U/L [facility] Total Protein 6.9 6.5 - 8.0 g/dL [facility] Albumin Level 4.0 3.5 - 5.0 g/dL [facility] Alkaline Phosphatase 61 39 - 117 U/L [facility] 02/10/2025 9:12 AM EDT 02/10/2025 9:17 AM EDT us Generic External Data Provider LAB BLOOD ORDERAB LES Final Result [facility] [address] [place] [address] [phone] * (ABNORMAL) CBC auto differential (02/10/2025 9:12 AM EDT) White Blood Count 3.8(L) 4.8 - 10.8 X10*3/uL [facility] Red Blood Count 4.50 4.20 - 5.50 X10*6/uL [facility] Hemoglobin 13.7 12.0 - 16.0 g/dl [facility] Hematocrit 42.4 37.0 - 47.0 % [facility] Mean Corpuscular Volume 94.2 80.0 - 98.0 fL [facility] Mean Corpuscular Hemoglobin 30.4 27.0 - 33.0 pg [facility] Mean Corpuscular HGB Conc 32.3 31.0 - 35.0 g/dl [facility] Red Cell Distribution Width 13.2 11.0 - 16.0 % [facility] Platelet Count 193 160 - 400 X10*3/uL [facility] Mean Platelet Volume 9.8 9.4 - 12.3 fL [facility] Neutrophils Percent Auto 46.2 45 - 73 % [facility] Imm Gran Pct Auto 0.5(H) 0.0 - 0.4 % [facility] Lymphocytes Percent Auto 28.4 20 - 40 % [facility] Monocytes Percent Auto 7.7 2 - 11 % [facility] Eosinophils Percent Auto 16.4(H) 0 - 4 % [facility] Basophils Percent Auto 0.8 0 - 2 % [facility] NRBC Pct Auto 0.0 0.0 - 0.2 /100WBC [facility] Neutrophils Absolute Auto 1.7(L) 2.0 - 8.3 x10*3/uL [facility] Imm Gran Abs Auto 0.02 0.00 - 0.03 X10*3/uL [facility] Lymphocytes Absolute Auto 1.1(L) 1.2 - 4.9 X10*3/uL [facility] Monocytes Absolute Auto 0.3 0.1 - 1.2 X10*3/uL [facility] Eosinophils Absolute Auto 0.6(H) 0.0 - 0.4 X10*3/uL [facility] Basophils Absolute Auto 0.0 0.0 - 0.2 X10*3/uL [facility] NRBC Abs Auto 0.000 0.0 - 0.012 X10*3/uL [facility] 02/10/2025 9:12 AM EDT 02/10/2025 9:17 AM EDT us Generic External Data Provider LAB BLOOD ORDERAB LES Final Result [facility] [address] [place] [address] [phone] documented in this encounter Visit Diagnoses Not on filedocumented in this encounter Additional Health Concerns Assessment Noted Time PHQ-9 Depression Total Score: 5 01/22/20 24 9:55 AM EDT documented as of this encounter Care Teams Non Destructive Testing Scientist Relationship Specialty Start Date End Date Teresita Munroe DO [address] [place] [address] PCP - General Family Medicine 07/28/14 documented as of this encounter
--- OUTSIDE RECORDS SUMMARY | 2025-02-10 10:15 | XMS_ITS | Encounter Summary ---
Author Organization [employer] Address 75 [facility] 7t [place] [address] Care Team Providers Care First Assistant Name Role Phone Teresita Munroe DO Primary Care Provider [phone] Reason for Visit * Reason Comments Med Refill Encounter Details Date Type Department Care Team ([facility] st Contact Info) Description 07/02/2023 Refill [facility] [address] [place] [address] Teresita Munroe DO [address] [place] [address] Chronic obstructive pulmonary disease, unspecified COPD type [...] Info) Description 04/10/2025 9:00 AM EST Telemedicine [facility] [address] [place] [address] Ana Beach RN documented as of this encounter Visit Diagnoses Diagnosis Chronic obstructive pulmonary disease, unspecified COPD type (CMS/HCC) documented in this encounter Care Teams First Assistant Relationship Specialty Start Date End Date Teresita Munroe DO [address] [place] [address] PCP - General Family Medicine 07/28/14 documented as of this encounter
--- OUTSIDE RECORDS SUMMARY | 2025-02-10 10:15 | XMS_ITS | Encounter Summary ---
Author Organization [employer] Address [address] [facility] 7t [place] [address] Care Team Providers Care Washcoat Wiper Name Role Phone Teresita Munroe DO Primary Care Provider [phone]- [phone] Reason for Visit * Reason Comments Med Refill Encounter Details Date Type Department Care Team ([facility] st Contact Info) Description 01/03/2024 Refill [facility] [address] [place], [place] [phone] Teresita Munroe DO [address] [employer] 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
--- OUTSIDE RECORDS SUMMARY | 2025-02-10 10:15 | XMS_ITS | Encounter Summary ---
Author Organization [employer] Address [address] [facility] 7t [place] [address] Care Team Providers Care Polyethylene Combiner Name Role Phone Teresita Munroe DO Primary Care Provider [phone]- [phone] Reason for Visit * Reason Onset Date Comments Med Refill 02/09/2025 Encounter Details Date Type Department Care Team (Late st Contact Info) Description 02/09/2025 Refill [facility] [address] [place] [address] Teresita Munroe DO [address] [place] [address] Social History Tobacco Use Types Packs/Day Years [...] encounter Miscellaneous Notes * Telephone Encounter - Jia Escobar LPN - 02/09/2025 11:51 AM EDT Last seen 8 * Telephone Encounter - Jeff Fraser - 02/09/2025 11:44 AM EDT TC from pt requesting medication refill. Medications needing refill : benzonatate (Tessalon Perles) 100 MG capsule guaiFENesin (Mucinex) 600 MG 12 hr tablet To be sent to: [facility] - [place], [place] - [address] [place] [address] documented in this encounter Plan of Treatment Upcoming Encounters Date Type Department Care Team (Late st Contact Info) Description 04/10/2025 9:00 AM EST Telemedicine [facility] [address] [place] [address] Ana Beach, RN documented as of this encounter Visit Diagnoses Not on filedocumented in this encounter Additional Health Concerns Assessment Noted Time PHQ-9 Depression Total Score: 5 01/22/20 24 9:55 AM EDT documented as of this encounter Care Teams Polyethylene Combiner Relationship Specialty Start Date End Date Teresita Munroe DO [address] [place] [address] PCP - General Family Medicine 07/28/14 documented as of this encounter
--- OUTSIDE RECORDS SUMMARY | 2025-02-10 10:15 | XMS_ITS | Encounter Summary ---
Author Organization [employer] [facility] Address 75 [facility] 7t [place] [address] Care Team Providers Care Microsoft Solutions Architect Name Role Phone Teresita Munroe DO Primary Care Provider Encounter Details Date Type Department Care Team (Latest Contact Info) Description 12/22/2021 Abstract [facility] Dental, Provider, DDS Social History [...] Info) Description 04/10/2025 9:00 AM EST Telemedicine [facility] [address] [place] [address] Ana Beach RN documented as of this encounter Visit Diagnoses Not on filedocumented in this encounter Care Teams Microsoft Solutions Architect Relationship Specialty Start Date End Date Teresita Munroe DO [address] [place] [address] PCP - General Family Medicine 07/28/14 documented as of this encounter
--- OUTSIDE RECORDS SUMMARY | 2025-02-10 10:15 | XMS_ITS | Encounter Summary ---
Author Organization [employer] Address [address] [facility] 7t [place] [address] Care Team Providers Care Hoist Worker Name Role Phone Teresita Munroe DO Primary Care Provider Encounter Details Date Type Department Care Team ([facility] Contact Info) Description 08/03/2022 Abstract [facility] [address] [place] [address] Bhanu Barakat DDS [address] [place] [address] Social History Tobacco Use Types Packs/Day Years [...] Info) Description 04/10/2025 9:00 AM EST Telemedicine [facility] [address] [place] [address] Ana Beach RN documented as of this encounter Visit Diagnoses Not on filedocumented in this encounter Care Teams Hoist Worker Relationship Specialty Start Date End Date Teresita Munroe DO [address] [place] [address] PCP - General Family Medicine 07/28/14 documented as of this encounter
--- OUTSIDE RECORDS SUMMARY | 2025-02-10 10:15 | XMS_ITS | Encounter Summary ---
Author Organization [employer] Address 75 [facility] 7t [place] [address] Care Team Providers Care Director Of Nurses Registry Name Role Phone Teresita Munroe DO Primary Care Provider [phone] Reason for Visit * Reason Onset Date Comments Med Refill 05/11/2023 Encounter Details Date Type Department Care Team (Late st Contact Info) Description 05/11/[address] [facility] [address] [place] [address] Teresita Munroe DO [address] [place] [address] Chronic pain of both shoulders (Primary Dx) [...] traMADol (Ultram) 50 MG tablet [facility] [address] [place] [address] - [address] documented in this encounter Plan of Treatment Upcoming Encounters Date Type Department Care Team (Late st Contact Info) Description 04/10/2025 9:[address] [facility] [address] [place] [address] Aan Beach RN documented as of this encounter Visit Diagnoses Diagnosis Chronic pain of both shoulders- Primary documented in this encounter Care Teams Director Of Nurses Registry Relationship Specialty Start Date End Date Teresita Munroe DO [address] [place] [address] PCP - General Family Medicine 07/28/14 documented as of this encounter
--- OUTSIDE RECORDS SUMMARY | 2025-02-10 10:15 | XMS_ITS | Clinical Summary ---
Author Organization [facility] Address [address] [address] Phone Care Team Providers Care Treasurer Name Role Phone Teresita Munroe DO Primary Care Provider [phone] Social History Tobacco Use Types Packs/Day Years [...] topic Medical Devices Not on [place] [address] [place] [address] MEDICARE REPLACEMENT [employer] [id number] [facility] MEDICARE REPLACEMENT [place] [address] [place] [address] MEDICARE REPLACEMENT [facility] [place] [address] [place] [address] [place] [address] MEDICARE REPLACEMENT [facility] MEDICARE REPLACEMENT Care Teams Treasurer Relationship Specialty Start Date End Date Teresita Munroe DO [address] [place] [phone] PCP - General Family Medicine 01/03/22 Additional Source Comments The information contained in this document represents components of the legal health record. It is not the complete legal health record.[facility]
[2025-02-10] MEDS: Magnesium Sulfate/H2O 2 GM/50 ML PIGGYBACK IV (10:16)
[2025-02-10] MEDS: iohexoL 350 MG/ML 100 ML INFUS..BTL IV (11:39)
--- NOTE | 2025-02-10 13:21 | PHA.MEDREC ---
Pharmacy Consult ? Medication Reconciliation Pharmacy has completed the medication reconciliation. Spoke to patient's HYDRAMATIC SPECIALIST Leonora at bedside and she confirmed medication list. Per Leonora, patient only uses albuterol and trelegy (new inhaler) now, she does not use advair nor incruse anymore. Xgeva was just started a few weeks ago (for the first time) and won't be due again until June. Repatha is due this coming 02/12/25. Patient takes 3 tablets of methotrexate 2.5 mg every sunday (last dose was yesterday 02/09/25). Tramadol is to be taken tid prn. She does not recall pt taking ezetimibe at all so med was left out of med list. Last dose of medication was yesterday 02/09/25.
--- NOTE | 2025-02-10 15:01 | PM.IMHP ---
History of Present Illness Date of Service: 02/10/25 Chief Complaint: dyspnea, cough This history was taken in Czech from the patient. 74yo F with asthma/COPD-emphysema, carotid arterial disease, chronic venous insufficiency, HLD, PVD on DAPT, AAA, subclavian stenosis, RA on MTX, and orthostatic hypotension presenting with 3-4 days of worsening cough, dyspnea, and wheeze. Cough productive of small amount of clear sputum. She was recently on prednisone as an outpatient 2 weeks ago for asthma exacerbation. She endorses cold-like symptoms. She has an appointment in April to establish Pulmonology care. She is not on home oxygen. No fever, hemoptysis, or chills. In the ED, she was mildly hypoxic and started on supplemental oxygen. She was given magnesium, albuterol, and methylprednisolone. CTA negative for PE. Flu/Covid-19/RSV negative. Review of Systems Review of Systems: Yes all other systems are reviewed and are negative [facility] Medical History Long-term use of Plaquenil Encounter for methotrexate monitoring Encounter for monitoring tocilizumab therapy Vitamin D deficiency Hypothyroxinemia Osteoarthritis (arthritis due to wear and tear of joints) Chronic venous insufficiency Subclavian artery stenosis Carotid arterial disease AAA (abdominal aortic aneurysm) Diabetes Elevated cholesterol COPD (chronic obstructive pulmonary disease) Asthma PVD (peripheral vascular disease) CAD (coronary artery disease) HTN (hypertension) Family History Father No problems noted. Mother Family history of high blood pressure Hx of type 1 diabetes mellitus Surgical History History of arthroplasty of right shoulder Hx of removal of cyst Hx of endoscopy History of colonoscopy Social History Are you a primary career development specialist to a significant other at home: No Do you presently have visiting nurse or other home services: Yes ([employer] - daily) Alcohol intake: never Patient Tobacco Use Status: Former Tobacco user Tobacco use type: Cigarette service: No Current occupational status: disabled Current occupation: left hand Meds Allergies Allergy/AdvReac Type Severity Reaction Status Date / Time lobster Allergy Nausea and Uncoded 02/10/25 08:49 Vomiting Active Medications: Current Medications Acetaminophen (Acetaminophen 325 Mg Tablet) 650 mg PO Q6H PRN PRN Reason: Pain, Mild 1-3,fever,headache Albuterol Sulfate (Albuterol Sulfate (0.083%) 2.5 Mg/3 Ml Vial.Neb) 2.5 mg INHALE Q2H PRN PRN Reason: Shortness of Breath/Wheezing Albuterol/Ipratropium (Albuterol/Iprat 2.5/0.5mg 3 Ml Ampul.Neb) 3 ml INHALE RQ4H WHILE AWAKE [facility] Aspirin (Aspirin Enteric Coated 81 Mg Tablet.) 81 mg PO DAILY [facility] Atorvastatin Calcium (Atorvastatin Calcium 80 Mg Tablet) 80 mg PO DAILY [facility] Buspirone HCl (Buspirone Hcl 10 Mg Tablet) 10 mg PO BID [facility] Calcium Carbonate (Calcium Carbonate 750 Mg Tab.Chew) 750 mg PO Q4H PRN PRN Reason: Heartburn Calcium Carbonate (Calcium Oyster Shell Elemental 500 Mg Tablet) 500 mg PO DAILY [facility] Clopidogrel Bisulfate (Clopidogrel Bisulfate 75 Mg Tablet) 75 mg PO DAILY [facility] Docusate Sodium (Docusate Sodium 100 Mg Capsule) 100 mg PO BID PRN PRN Reason: Constipation Duloxetine HCl (Duloxetine Hcl 60 Mg Capsule.) 60 mg PO BID [facility] Enoxaparin Sodium (Enoxaparin Sodium 40 Mg/0.4 Ml Syringe) 40 mg SUBCUT Q24H [facility] Fenofibrate (Fenofibrate 160 Mg Tablet) 160 mg PO DAILY [facility] Fluticasone/Umeclidinium/Vilanterol (Fluticasone/Umeclidinium/Vilanterol 200/62.5/25 Blst.W.Dev) 1 puff INHALE RDAILY [facility] Folic Acid (Folic Acid 1 Mg Tablet) 1 mg PO DAILY [facility] Gabapentin (Gabapentin 300 Mg Capsule) 300 mg PO DAILY [facility] Lidocaine (Lidocaine 4 % Patch Adh..Patch) 1 patch TRANSDERMA DAILY [facility] Loratadine (Loratadine 10 Mg Tablet) 10 mg PO DAILY [facility] Magnesium Hydroxide (Milk Of Magnesia 30 Ml Oral.Susp) 30 ml PO DAILY PRN PRN Reason: Constipation Melatonin (Melatonin 3 Mg Tablet) 6 mg PO BEDTIME PRN PRN Reason: Insomnia Methotrexate (Methotrexate Sodium 2.5 Mg Tablet) 7.5 mg PO MO [facility] Methylprednisolone Sodium Succinate (Methylprednisolone Sod Succ 40 Mg/Ml Vial) 40 mg IVPUSH Q12H [place] Midodrine (Midodrine Hcl 2.5 Mg Tablet) 2.5 mg PO BID [facility] Montelukast Sodium (Montelukast Sodium 10 Mg Tablet) 10 mg PO DAILY [facility] Ondansetron HCl (Ondansetron Hcl 4 Mg/2 Ml Vial) 4 mg IVPUSH Q8H PRN PRN Reason: Nausea and Vomiting Quetiapine Fumarate (Quetiapine Fumarate 100 Mg Tablet) 100 mg PO BEDTIME [facility] Sodium Chloride (0.9 % Sodium Chloride Flush 3 Ml Syringe) 3 ml IVFLUSH QSHIFT [facility] Sodium Chloride (Sodium Chloride 0.65 % Nasal 44 Ml Sprbtl) 1 - 2 spray NOSTRIL-B Q2H PRN PRN Reason: Congestion Vitamin D (Cholecalciferol (Vitamin D3) 25 Mcg Tablet) 25 mcg PO DAILY [facility] Home Medications ?Medication ?Instructions ?Recorded ?Confirmed ?Last Taken ?Type duloxetine 60 mg capsule,delayed 60 mg PO BID 06/01/20 02/10/25 02/09/25 History release fenofibrate 160 mg tablet 160 mg PO DAILY 06/01/20 02/10/25 02/09/25 History fexofenadine 180 mg tablet 180 mg PO DAILY 06/01/20 02/10/25 02/09/25 History metformin 500 mg tablet,extended 500 mg PO BID 06/01/20 02/10/25 02/09/25 History release 24 hr montelukast 10 mg tablet 10 mg PO DAILY 06/01/20 02/10/25 02/09/25 History rosuvastatin 40 mg tablet 40 mg PO DAILY 06/01/20 02/10/25 02/09/25 History clopidogrel 75 mg tablet 75 mg PO DAILY 11/05/20 02/10/25 02/09/25 History albuterol sulfate 90 mcg/actuation 2 puff inhalation Q4-6H PRN 01/10/22 02/10/25 01/24/22 History aerosol inhaler (Ventolin HFA) Wheezing buspirone 10 mg tablet 1 tab PO BID 01/10/22 02/10/25 02/09/25 History ipratropium 0.5 mg-albuterol 3 mg 3 ml inhalation QID PRN Shortness 01/10/22 02/10/25 01/23/22 History (2.5 mg base)/3 mL nebulization Of Breath Or Wheezing soln tramadol 50 mg tablet 1 tab PO TID PRN Pain 01/10/22 02/10/25 01/10/22 History midodrine 2.5 mg tablet 1 tab PO BID 01/24/22 02/10/25 02/09/25 History quetiapine 100 mg tablet 1 tab PO BEDTIME 01/24/22 02/10/25 02/09/25 History acetaminophen 650 mg 650 mg PO TID 03/02/23 02/10/25 02/09/25 History tablet,extended release aspirin 81 mg tablet,delayed 81 mg PO DAILY 03/02/23 02/10/25 02/09/25 History release diclofenac sodium 1 % topical gel 1 ea topical QID 03/02/23 02/10/25 02/09/25 History gabapentin 300 mg capsule 300 mg PO DAILY 03/02/23 02/10/25 02/09/25 History lidocaine 5 % topical patch 1 patch topical DAILY 03/02/23 02/10/25 02/09/25 History sodium chloride 0.65 % nasal spray 1 - 2 spray intranasal Q2-3H PRN 03/02/23 02/10/25 Unknown History aerosol (Deep Sea Nasal) congestion evolocumab 140 mg/mL subcutaneous 140 mg subcut Q2W 03/21/24 02/10/25 01/29/25 History pen injector (Repatha SureNeoick) denosumab 60 mg/mL subcutaneous 60 mg subcut [id number] 12/17/24 02/10/25 Unknown History syringe (Prolia) cetirizine 10 mg tablet 10 mg PO DAILY 02/10/25 02/10/25 02/09/25 History docusate sodium 100 mg capsule 100 mg PO BID PRN Constipation 02/10/25 02/10/25 Unknown History fluticasone fur. 200 mcg-umeclid 1 ea inhalation DAILY 02/10/25 02/10/25 02/09/25 History 62.5 mcg-vilant 25 mcg inhalat.powder (Trelegy Ellipta) methotrexate sodium 2.5 mg tablet 7.5 mg PO MO 02/10/25 02/10/25 02/09/25 History Physical Exam Vital Signs and Narrative: Vital Signs: Last Vital Signs Temp 99.0 F 02/10/25 14:59 Pulse 120 H 02/10/25 14:59 Resp 22 H 02/10/25 14:59 BP 128/71 02/10/25 14:59 Pulse Ox 92 02/10/25 14:59 O2 Del Method Nasal Cannula 02/10/25 14:59 O2 Flow Rate 1 02/10/25 14:59 BMI result Body Mass Index 25.4 Gen: mild resp distress HEENT: sclera anicteric, moist mucus membranes Neck: supple Lungs: expiratory wheezing and rhonchi, slightly tachypneic Heart: regular ,tachycardic, no murmurs Abd: soft, non-tender, non-distended Ext: no edema Skin: warm/well-perfused Neuro: alert and oriented x3, no focal findings Psych: appropriate affect Results Labs 02/10/25 09:12 02/10/25 09:12 Labs: Laboratory Results - last 24 hr 02/10/25 02/10/25 09:12 09:21 MCV 94.2 MCH 30.4 MCHC 32.3 RDW 13.2 Plt Count 193 MPV 9.8 Immature Gran % (Auto) 0.5 H Neut % (Auto) 46.2 Lymph % (Auto) 28.4 Marshall % (Auto) 7.7 Eos % (Auto) 16.4 H Baso % (Auto) 0.8 Lymph # (Auto) 1.1 L Marshall # (Auto) 0.3 Eos # (Auto) 0.6 H Baso # (Auto) 0.0 Abs Immat Gran (auto) 0.02 Absolute Neuts (auto) 1.7 L Absolute Nucleated RBC 0.000 Nucleated RBC % (auto) 0.0 VBG pH 7.35 VBG pCO2 48 VBG pO2 51 VBG HCO3 27 H VBG O2 Saturation 74.0 VBG Base Excess 0.8 Anion Gap 13 Estim Creat Clear Calc 63.0 Estimated GFR > 60 Random Glucose 141 H Calcium 8.6 D Magnesium 2.3 Total Bilirubin 0.6 AST 23 ALT 18 Alkaline Phosphatase 61 Total Protein 6.9 Albumin 4.0 COVID-19 (TREVOR) Negative COVID-19 Clin Com See Note Influenza Type A (LANNY) Negative Influenza Type B (LANNY) Negative Influenza A & B Note See Note Imaging Radiologist's Impressions: Impressions Chest X-Ray 02/10/25 10:10 IMPRESSION: No acute disease. 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 Electronically signed by: Callum Moreno MD 02/10/2025 10:33 AM EDT RP Chest CTA 02/10/25 11:17 IMPRESSION: 1. No evidence of pulmonary emboli. 2. Mild to moderate emphysema. The lungs are clear. 3. Hepatosplenomegaly. 4. Because mild to moderate emphysema is an independent risk factor for lung cancer, consider entering the patient into a program of yearly lung cancer screening with low dose chest CT. Electronically signed by: Eldon Paulino MD 02/10/2025 11:54 AM EDT RP Assessment and Plan (1) Asthma with COPD with exacerbation: Status: Acute Plan 74yo F with asthma/COPD-emphysema, carotid arterial disease, chronic venous insufficiency, HLD, PVD on DAPT, AAA, subclavian stenosis, RA on MTX, and orthostatic hypotension presenting with 3-4 days of worsening cough, dyspnea, and wheeze. Found to be hypoxic, admitting for asthma/COPD exacerbation. asthma/COPD exacerbation - admit to telemetry, give IV methylprednisolone, standing/prn nebs, doxycycline, Pulm consult, continue Trelegy acute hypoxic respiratory failure - supplemental O2, wean as tolerated; no signs of CO2 retention but recheck VBG in AM carotid arterial disease, PVD: continue clopidogrel + ASA HLD: fenofibrate + statin mood disorder: buspirone + duloxetine + quetiapine neuropathy : gabapentin orthostatic hypotension: midodrine RA: MTX + folate VTE ppx: enoxaparin dispo: TBD code: full I anticipate that the patient will stay at least 2 midnights as an inpatient in the hospital due to the above reasons. It is neither reasonable nor safe to care for them in a less acute setting. Quality Stroke Does the patient have a stroke diagnosis?: No VTE Prior VTE?: No VTE Risk Level:: Medical - moderate - high VTE Device Contraindication: N/A - Device Ordered VTE Drug Contraindication: N/A - Med Ordered
[2025-02-10] MEDS: Albuterol/Iprat 2.5/0.5MG 3 ML AMPUL.NEB INHALE (15:02)
[2025-02-10] MEDS: 0.9 % Sodium Chloride Flush 3 ML SYRINGE IVFLUSH (15:11)
--- NOTE | 2025-02-10 17:26 | PM.EVENT ---
Event Note Date of Service: 02/10/25 Event Note: xrays of chest: Chronic Intra-articular fracture of the left humerus could be related to subchondral collapse secondary to avascular necrosis. no acute intervention - f/u ortho out patient Time Spent With Patient Time: Total time managing care of this patient today ____ minutes.
--- NOTE | 2025-02-10 17:31 | ECG_ITS ---
Test Reason : TACHYCARDIA Blood Pressure : */* mmHG Vent. Rate : 134 BPM Atrial Rate : 134 BPM P-R Int : 138 ms QRS Dur : 62 ms QT Int : 296 ms P-R-T Axes : 67 0 49 degrees QTcB Int : 442 ms Sinus tachycardia Inferior infarct , age undetermined Possible Anterior infarct (cited on or before 10-Feb-2025) Abnormal ECG When compared with ECG of 10-Feb-2025 09:36, Inferior infarct is now Present T wave amplitude has increased in Anterior leads Referred By: Carlos Valadez Electronically Signed By: VALENTIN GARZA MD
[2025-02-10] MEDS: levalbuterol HCL 1.25 MG, Ipratropium Bromide 0.5 MG INHALE (20:15)
[2025-02-11] VITALS (11 sets, daily range): BP systolic 124–145; BP diastolic 56–79; PULSE 101–122; RESP 17–19; TEMP 36.1–36.8; O2SAT 92–97
[2025-02-11 07:21] LABS: MANUAL DIFF FLAG NO
[2025-02-11 07:26] LABS: VBG HCO3 24 mmol/L (22-26); VBG O2 % Saturation 78.0 %
[2025-02-11 07:26] LABS: Venous Blood Gas Refer to POC result
[2025-02-11 07:30] LABS: Hematocrit 41.3 % (37.0-47.0); Hemoglobin 14.0 g/dl (12.0-16.0); Imm Gran Abs Auto 0.07 X10*3/uL (0.00-0.03); Imm Gran Pct Auto 0.6 % (0.0-0.4); Lymphocytes Absolute Auto 0.8 X10*3/uL (1.2-4.9); Mean Corpuscular HGB Conc 33.9 g/dl (31.0-35.0); Mean Corpuscular Hemoglobin 31.3 pg (27.0-33.0); Mean Corpuscular Volume 92.2 fL (80.0-98.0); NRBC Abs Auto 0.000 X10*3/uL (0.0-0.012); NRBC Pct Auto 0.0 /100WBC (0.0-0.2); Platelet Count 222 X10*3/uL (160-400); Red Blood Count 4.48 X10*6/uL (4.20-5.50); White Blood Count 11.0 X10*3/uL (4.8-10.8)
[2025-02-11 07:41] LABS: Anion Gap 13 (12-20); Blood Urea Nitrogen 14 mg/dL (9-16); Calcium 9.2 mg/dL (8.4-10.2); Carbon Dioxide 23 mmol/L (22-29); Chloride 112 mmol/L (96-108); Creatinine Clr Calc Pharmacy 61.3; Estimated Glomerular Filt Rate > 60; Potassium 4.5 mmol/L (3.3-5.1); Sodium 143 mmol/L (135-145)
[2025-02-11] MEDS: levalbuterol HCL 1.25 MG, Ipratropium Bromide 0.5 MG INHALE ×4 (07:55→19:32)
--- NOTE | 2025-02-11 09:32 | P.CONPL_ITS ---
History of Present Illness History of Present Illness Consult date: 02/11/25 Chief complaint: Asthma Exacerbation/hypoxia Narrative: This is an inpatient pulmonary consultation. The patient is a 74-year-old lady with a known history of asthma who apparently has been having worsening respiratory symptoms for the last couple months. She has had multiple exacerbations requiring prednisone. Appears that she is actually okay when she is on the prednisone but when she tapers off her breathing gets significantly worse. She has had already multiple evaluations in the ER and urgent care. Recently she was placed on Trelegy 200 mcg dose and she is tolerating that well. In addition to that the patient does have a nebulizer that she uses regularly. This time the patient started having worsening respiratory symptoms again when she taper off the prednisone. She could not tolerate the symptoms and a longer has significant respiratory distress him she was brought to the [facility] ER. There she was in distress and she was treated appropriately for significant status asthmaticus. The patient did have blood work demonstrating significant eosinophilia with an absolute eosinophil count of 600 even after being recently on steroids. The patient did have a CTA that I personally reviewed. The patient does have some emphysema from previous smoking and also has evidence of bronchitis. No evidence of any parenchymal disease or pneumonitis appreciated. No evidence of any blood clots appreciated. The patient is started on Solu-Medrol and respiratory treatments and she is already starting to feel better. Denies any sick contacts. The patient is not aware of any recent new hobbies or constructions or mold exposures in the house. She does have a pet dog but she has had it for many years. Denies any other new exposures. 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 She will be a very good candidate for biologics. We will stabilize her with corticosteroids at this time continue with neb treatments and then she will follow-up closely as an outpatient. Review of Systems 2 Constitutional: Constitutional: Denies fever(s) ENT: Reports nasal congestion Cardiovascular: Cardiovascular: Denies chest pain and Reports dyspnea Respiratory: Respiratory: Reports cough, Reports dyspnea and Reports wheezing Gastrointestinal: Gastrointestinal: Reports no additional gastrointestinal complaints Musculoskeletal: Musculoskeletal: Reports no additional musculoskeletal complaints Neurologic: Reports system reviewed and no additional complaints, except as documented Endocrine: Endocrine: Reports no additional endocrine complaints Hematologic/Lymphatic: Hematologic/Lymphatic: Reports no additional hematologic/lymphatic complaints Allergic/Immunologic: Allergic/Immunologic: Reports wheezing [facility] Past Medical History Medical History (Updated 02/11/25 @ 09:37 by Adria Parish MD) Eosinophilia Long-term use of Plaquenil Encounter for methotrexate monitoring Encounter for monitoring tocilizumab therapy Vitamin D deficiency Hypothyroxinemia Osteoarthritis (arthritis due to wear and tear of joints) Chronic venous insufficiency Subclavian artery stenosis Carotid arterial disease AAA (abdominal aortic aneurysm) Diabetes Elevated cholesterol COPD (chronic obstructive pulmonary disease) Asthma PVD (peripheral vascular disease) CAD (coronary artery disease) HTN (hypertension) Family History Family History Father No problems noted. Mother Family history of high blood pressure Hx of type 1 diabetes mellitus Surgical History Surgical History History of arthroplasty of right shoulder Hx of removal of cyst Hx of endoscopy History of colonoscopy Social History Social History Household Members: None Housing: Apartment Are you a primary care partner to a significant other at home: No Do you presently have visiting nurse or other home services: No Alcohol intake: never Patient Tobacco Use Status: Former Tobacco user Tobacco use type: Cigarette service: No Current occupational status: disabled Current occupation: left hand Meds Allergies Allergy/AdvReac Type Severity Reaction Status Date / Time lobster Allergy Nausea and Uncoded 02/10/25 08:49 Vomiting Active Medications: Current Medications Acetaminophen (Acetaminophen 325 Mg Tablet) 650 mg PO Q6H PRN PRN Reason: Pain, Mild 1-3,fever,headache Aspirin (Aspirin Enteric Coated 81 Mg Tablet.Dr) 81 mg PO DAILY [facility] Atorvastatin Calcium (Atorvastatin Calcium 80 Mg Tablet) 80 mg PO DAILY [facility] Buspirone HCl (Buspirone Hcl 10 Mg Tablet) 10 mg PO BID [facility] Last Admin: 02/10/25 20:00 Dose: 10 mg Calcium Carbonate (Calcium Carbonate 750 Mg Tab.Chew) 750 mg PO Q4H PRN PRN Reason: Heartburn Calcium Carbonate (Calcium Oyster Shell Elemental 500 Mg Tablet) 500 mg PO DAILY [facility] Clopidogrel Bisulfate (Clopidogrel Bisulfate 75 Mg Tablet) 75 mg PO DAILY [facility] Levalbuterol HCl 1.25 mg/ (Ipratropium Spivey 0.5 mg) 0 mg INHALE RQ4H WHILE AWAKE [facility] Last Admin: 02/11/25 07:55 Dose: 1 dose Docusate Sodium (Docusate Sodium 100 Mg Capsule) 100 mg PO BID PRN PRN Reason: Constipation Doxycycline Monohydrate (Doxycycline Monohydrate 100 Mg Capsule) 100 mg PO Q12H [facility] Last Admin: 02/10/25 19:59 Dose: 100 mg Duloxetine HCl (Duloxetine Hcl 60 Mg Capsule.Dr) 60 mg PO BID [facility] Last Admin: 02/10/25 20:00 Dose: 60 mg Enoxaparin Sodium (Enoxaparin Sodium 40 Mg/0.4 Ml Syringe) 40 mg SUBCUT Q24H [facility] Last Admin: 02/10/25 15:08 Dose: 40 mg Fenofibrate (Fenofibrate 160 Mg Tablet) 160 mg PO DAILY [facility] Fluticasone/Umeclidinium/Vilanterol (Fluticasone/Umeclidinium/Vilanterol 200/62.5/25 Blst.W.Dev) 1 puff INHALE RDAILY [facility] Folic Acid (Folic Acid 1 Mg Tablet) 1 mg PO DAILY [facility] Gabapentin (Gabapentin 300 Mg Capsule) 300 mg PO DAILY [facility] Levalbuterol HCl (Levalbuterol Hcl 1.25 Mg/3 Ml Vial.Neb) 1.25 mg INHALE Q2H PRN PRN Reason: Shortness of Breath/Wheezing Lidocaine (Lidocaine 4 % Patch Adh..Patch) 1 patch TRANSDERMA DAILY [facility] Loratadine (Loratadine 10 Mg Tablet) 10 mg PO DAILY [facility] Magnesium Hydroxide (Milk Of Magnesia 30 Ml Oral.Susp) 30 ml PO DAILY PRN PRN Reason: Constipation Melatonin (Melatonin 3 Mg Tablet) 6 mg PO BEDTIME PRN PRN Reason: Insomnia Methotrexate (Methotrexate Sodium 2.5 Mg Tablet) 7.5 mg PO MO [facility] Methylprednisolone Sodium Succinate (Methylprednisolone Sod Succ 40 Mg/Ml Vial) 40 mg IVPUSH Q12H [facility] Last Admin: 02/10/25 20:00 Dose: 40 mg Midodrine (Midodrine Hcl 2.5 Mg Tablet) 2.5 mg PO BID [facility] Last Admin: 02/10/25 20:06 Dose: 2.5 mg Montelukast Sodium (Montelukast Sodium 10 Mg Tablet) 10 mg PO DAILY [facility] Ondansetron HCl (Ondansetron Hcl 4 Mg/2 Ml Vial) 4 mg IVPUSH Q8H PRN PRN Reason: Nausea and Vomiting Quetiapine Fumarate (Quetiapine Fumarate 100 Mg Tablet) 100 mg PO BEDTIME [facility] Last Admin: 02/10/25 20:00 Dose: 100 mg Sodium Chloride (0.9 % Sodium Chloride Flush 3 Ml Syringe) 3 ml IVFLUSH QSHIFT [facility] Last Admin: 02/11/25 01:55 Dose: Not Given Sodium Chloride (Sodium Chloride 0.65 % Nasal 44 Ml Sprbtl) 1 - 2 spray NOSTRIL-B Q2H PRN PRN Reason: Congestion Vitamin D (Cholecalciferol (Vitamin D3) 25 Mcg Tablet) 25 mcg PO DAILY [facility] Home Medications ?Medication ?Instructions ?Recorded ?Confirmed ?Last Taken ?Type duloxetine 60 mg capsule,delayed 60 mg PO BID 06/01/20 02/10/25 02/09/25 History release fenofibrate 160 mg tablet 160 mg PO DAILY 06/01/2002/2602/09/25 History fexofenadine 180 mg tablet 180 mg PO DAILY 06/01/2002/09/25 History metformin 500 mg tablet,extended 500 mg PO BID 0 02/10/25 02/09/25 History release 24 hr montelukast 10 mg tablet 10 mg PO DAILY 06/01/2002/2602/09/25 History rosuvastatin 40 mg tablet 40 mg PO DAILY 06/01/2002/2602/09/25 History clopidogrel 75 mg tablet 75 mg PO DAILY 11/05/2002/2602/09/25 History albuterol sulfate 90 mcg/actuation 2 puff inhalation Q 4-6H PRN 01/10/22 02/10/25 01/24/22 History aerosol inhaler (Ventolin HFA) Wheezing buspirone 10 mg tablet 1 tab PO BID 01/10/2202/09/25 History ipratropium 0.5 mg-albuterol 3 mg 3 ml inhalation QID PRN Shortness 01/10/22 02/10/25 01/23/22 History (2.5 mg base)/3 mL nebulization Of Breath Or Wheezing soln tramadol 50 mg tablet 1 tab PO TID PRN Pain 02/10/25 01/10/22 History midodrine 2.5 mg tablet 1 tab PO BID 01/24/2202/09/25 History quetiapine 100 mg tablet 1 tab PO BEDTIME 01/24/2202/09/25 History acetaminophen 650 mg 650 mg PO TID 03/02/2302/1002/09/25 History tablet,extended release aspirin 81 mg tablet,delayed 81 mg PO DAILY 03/02/23 0 02/10/25 02/09/25 History release diclofenac sodium 1 % topical gel 1 ea topical QID 02/10/25 02/09/25 History gabapentin 300 mg capsule 300 mg PO DAILY 03/02/2302/2602/09/25 History lidocaine 5 % topical patch 1 patch topical DAILY 02/0302/10/25 02/09/25 History sodium chloride 0.65 % nasal spray 1 - 2 spray intrana aida Q2-3H PRN 03/02/23 02/10/25 Unknown History aerosol (Deep Sea Nasal) congestion evolocumab 140 mg/mL subcutaneous 140 mg subcut Q2W 02/10/25 01/29/25 History pen injector (Repatha SureNeoick) denosumab 60 mg/mL subcutaneous 60 mg subcut [id number] 12/17/24 02/10/25 Unknown History syringe (Prolia) cetirizine 10 mg tablet 10 mg PO DAILY 02/10/25 09/0 02/2602/09/25 History docusate sodium 100 mg capsule 100 mg PO BID PRN Const ipation 02/10/25 02/10/25 Unknown History fluticasone fur. 200 mcg-umeclid 1 ea inhalation DAILY 02/10/25 02/10/25 02/09/25 History 62.5 mcg-vilant 25 mcg inhalat.powder (Trelegy Ellipta) methotrexate sodium 2.5 mg tablet 7.5 mg PO MO 5 02/10/25 02/09/25 History Physical Exam 2 Vital Signs: Vital Signs: Last Vital Signs Temp 97.6 F 02/11/25 07:36 Pulse 112 H 02/11/25 07:58 Resp 18 02/11/25 07:58 BP 131/63 02/11/25 07:36 Pulse Ox 95 02/11/25 07:36 O2 Del Method Nasal Cannula 02/11/25 07:36 O2 Flow Rate 1 02/11/25 07:36 BMI result Body Mass Index 26.3 Const: General: comfortable HEENT: Head: Yes normocephalic Neck: Neck: Yes supple Chest: Chest palpation & inspection: normal inspection of the chest Resp: Effort & Inspection: normal respiratory effort and prolonged expiratory phase Auscultation: wheezes Cardio: Heart sounds: S1 normal heart sound present and S2 normal heart sound present GI: Palpation (GI): Soft to palpation Skin: General skin exam: no rashes or lesions noted Extrem: General: Yes no clubbing, cyanosis or edema Results Laboratory Findings 02/11/25 07:15 02/11/25 07:15 Abnormal lab findings: Abnormal Labs 02/10/25 02/10/25 02/11/25 09:12 09:21 07:15 WBC 3.8 L 11.0 H Immature Gran % (Auto) 0.5 H 0.6 H Neut % (Auto) 87.0 H Lymph % (Auto) 7.0 L Eos % (Auto) 16.4 H Lymph # (Auto) 1.1 L 0.8 L Eos # (Auto) 0.6 H Abs Immat Gran (auto) 0.07 H Absolute Neuts (auto) 1.7 L 9.5 H VBG HCO3 27 H Chloride 110 H 112 H Random Glucose 141 H 174 H Assessment and Plan (1) Asthma exacerbation: Qualifiers: Asthma severity: severe Asthma persistence: unspecified Qualified Code(s): J45.901 - Unspecified asthma with (acute) exacerbation Status: Acute (2) Eosinophilia: Qualifiers: Eosinophilia type: other eosinophilia Qualified Code(s): D72.19 - Other eosinophilia Status: Acute Plan Continue Solu-Medrol x1 day then will transition to prednisone taper tomorrow. Once the patient is a taper down to 10 mg she should stay on 10 mg until she follows up with outpatient pulmonary Continue with Treyessy Turkir Antihistamine therapy Blood work requested Will plan to follow-up as an outpatient pulmonary in order to be assess for biologic therapy which I believe will be very effective for her. Procedures Date of Service Date of Service: 02/11/25
[2025-02-11] MEDS: 0.9 % Sodium Chloride Flush 3 ML SYRINGE IVFLUSH ×3 (11:05→20:58)
[2025-02-11] MEDS: Aspirin Enteric Coated 81 MG TABLET.DR PO (11:06)
--- NOTE | 2025-02-11 11:06 | MHC.CM.PN ---
IMM 02/11/25, Pt. lives alone, she has [employer] services 42 hrs a week. She does not have VNA services. he uses DME: cane, walker, w/c, bath chair, nebulizer. HCP is her son, Jhonatan Padron, . [employer] to transport home at [place], DCP; home, resume [employer] services. CM to follow for DC needs.
[2025-02-11] MEDS: Calcium Oyster Shell Elemental 500 MG TABLET PO (11:09)
[2025-02-11] MEDS: Lidocaine 4 % Patch ADH..PATCH 1 PATCH TRANSDERMA (11:10)
[2025-02-11] MEDS: Fluticasone/Umeclidinium/Vilanterol 200/62.5/25 BLST.W.DEV 1 PUFF INHALE (14:21)
--- NOTE | 2025-02-11 14:43 | P.PNIM_ITS ---
Subjective Subjective Date of Service: 02/11/25 Interval History: No acute issues overnight. Slowly improving Review of Systems Denies chest pain Denies shortness of breath Denies nausea vomiting diarrhea Denies fever chills Physical Exam 2 Vital Signs: Vital Signs: Last Vital Signs Temp 97.6 F 02/11/25 11:40 Pulse 120 H 02/11/25 14:21 Resp 17 02/11/25 14:21 BP 140/79 H 02/11/25 11:40 Pulse Ox 97 02/11/25 11:40 O2 Del Method Room Air 02/11/25 11:40 O2 Flow Rate 1 02/11/25 07:36 BMI result Body Mass Index 26.3 Const: Other: Awake alert no acute distress Resp: Other: Diminished at baseline; scattered wheezes Cardio: Other: No S4; positive S1-S2; no S3 murmurs rubs or gallops GI: Other: Soft nontender nondistended normoactive bowel sounds Extrem: Other: No edema bilaterally Objective Data Active Medications Acetaminophen (Acetaminophen 325 Mg Tablet) 650 mg PO Q6H PRN PRN Reason: Pain, Mild 1-3,fever,headache Aspirin (Aspirin Enteric Coated 81 Mg Tablet.) 81 mg PO DAILY [facility] Last Admin: 02/11/25 11:06 Dose: 81 mg Documented By: CHEMA Atorvastatin Calcium (Atorvastatin Calcium 80 Mg Tablet) 80 mg PO DAILY [facility] Last Admin: 02/11/25 11:06 Dose: 80 mg Documented By: CHEMA Buspirone HCl (Buspirone Hcl 10 Mg Tablet) 10 mg PO BID [facility] Last Admin: 02/11/25 11:07 Dose: 10 mg Documented By: CHEMA Calcium Carbonate (Calcium Carbonate 750 Mg Tab.Chew) 750 mg PO Q4H PRN PRN Reason: Heartburn Calcium Carbonate (Calcium Oyster Shell Elemental 500 Mg Tablet) 500 mg PO DAILY [facility] Last Admin: 02/11/25 11:09 Dose: 500 mg Documented By: CHEMA Clopidogrel Bisulfate (Clopidogrel Bisulfate 75 Mg Tablet) 75 mg PO DAILY [facility] Last Admin: 02/11/25 11:06 Dose: 75 mg Documented By: CHEMA Levalbuterol HCl 1.25 mg/ (Ipratropium Vermilion 0.5 mg) 0 mg INHALE RQ4H WHILE AWAKE [facility] Last Admin: 02/11/25 11:16 Dose: 3 dose Documented By: JASPREET Docusate Sodium (Docusate Sodium 100 Mg Capsule) 100 mg PO BID PRN PRN Reason: Constipation Doxycycline Monohydrate (Doxycycline Monohydrate 100 Mg Capsule) 100 mg PO Q12H [facility] Last Admin: 02/11/25 11:06 Dose: 100 mg Documented By: CHEMA Duloxetine HCl (Duloxetine Hcl 60 Mg Capsule.Dr) 60 mg PO BID [facility] Last Admin: 02/11/25 11:09 Dose: 60 mg Documented By: CHEMA Enoxaparin Sodium (Enoxaparin Sodium 40 Mg/0.4 Ml Syringe) 40 mg SUBCUT Q24H [facility] Last Admin: 02/11/25 14:38 Dose: 40 mg Documented By: DEANA Fenofibrate (Fenofibrate 160 Mg Tablet) 160 mg PO DAILY [facility] Last Admin: 02/11/25 11:09 Dose: 160 mg Documented By: CHEMA Fluticasone/Umeclidinium/Vilanterol (Fluticasone/Umeclidinium/Vilanterol 200/62.5/25 Blst.W.Dev) 1 puff INHALE RDAILY [facility] Last Admin: 02/11/25 14:21 Dose: 1 puff Documented By: NIKHIL Folic Acid (Folic Acid 1 Mg Tablet) 1 mg PO DAILY [facility] Last Admin: 02/11/25 11:07 Dose: 1 mg Documented By: CHEMA Gabapentin (Gabapentin 300 Mg Capsule) 300 mg PO DAILY [facility] Last Admin: 02/11/25 11:09 Dose: 300 mg Documented By: CHEMA Levalbuterol HCl (Levalbuterol Hcl 1.25 Mg/3 Ml Vial.Neb) 1.25 mg INHALE Q2H PRN PRN Reason: Shortness of Breath/Wheezing Lidocaine (Lidocaine 4 % Patch Adh..Patch) 1 patch TRANSDERMA DAILY [facility] Last Admin: 02/11/25 11:10 Dose: 1 patch Documented By: CHEMA Loratadine (Loratadine 10 Mg Tablet) 10 mg PO DAILY [facility] Last Admin: 02/11/25 11:06 Dose: 10 mg Documented By: CHEMA Magnesium Hydroxide (Milk Of Magnesia 30 Ml Oral.Susp) 30 ml PO DAILY PRN PRN Reason: Constipation Melatonin (Melatonin 3 Mg Tablet) 6 mg PO BEDTIME PRN PRN Reason: Insomnia Methotrexate (Methotrexate Sodium 2.5 Mg Tablet) 7.5 mg PO MO [facility] Methylprednisolone Sodium Succinate (Methylprednisolone Sod Succ 40 Mg/Ml Vial) 40 mg IVPUSH Q12H [facility] Last Admin: 02/11/25 11:06 Dose: 40 mg Documented By: CHEMA Midodrine (Midodrine Hcl 2.5 Mg Tablet) 2.5 mg PO BID [facility] Last Admin: 02/11/25 09:00 Dose: Not Given Documented By: CHEMA Non-Admin Reason: BP WNL Montelukast Sodium (Montelukast Sodium 10 Mg Tablet) 10 mg PO DAILY [facility] Last Admin: 02/11/25 11:06 Dose: 10 mg Documented By: CHEMA Ondansetron HCl (Ondansetron Hcl 4 Mg/2 Ml Vial) 4 mg IVPUSH Q8H PRN PRN Reason: Nausea and Vomiting Quetiapine Fumarate (Quetiapine Fumarate 100 Mg Tablet) 100 mg PO BEDTIME [facility] Last Admin: 02/10/25 20:00 Dose: 100 mg Documented By: ENRIQUETA Sodium Chloride (0.9 % Sodium Chloride Flush 3 Ml Syringe) 3 ml IVFLUSH QSHIFT [facility] Last Admin: 02/11/25 14:38 Dose: 3 ml Documented By: DEANA Sodium Chloride (Sodium Chloride 0.65 % Nasal 44 Ml Sprbtl) 1 - 2 spray NOSTRIL-B Q2H PRN PRN Reason: Congestion Vitamin D (Cholecalciferol (Vitamin D3) 25 Mcg Tablet) 25 mcg PO DAILY [facility] Last Admin: 02/11/25 11:07 Dose: 25 mcg Documented By: CHEMA Labs 02/11/25 07:15 02/11/25 07:15 Labs: Laboratory Results - last 24 hr 02/11/25 02/11/25 02/11/25 07:15 07:22 10:06 MCV 92.2 MCH 31.3 MCHC 33.9 RDW 13.2 Plt Count 222 MPV 10.0 Immature Gran % (Auto) 0.6 H Neut % (Auto) 87.0 H Lymph % (Auto) 7.0 L Emmons % (Auto) 5.1 Eos % (Auto) 0.1 Baso % (Auto) 0.2 Lymph # (Auto) 0.8 L Emmons # (Auto) 0.6 Eos # (Auto) 0.0 Baso # (Auto) 0.0 Abs Immat Gran (auto) 0.07 H Absolute Neuts (auto) 9.5 H Absolute Nucleated RBC 0.000 Nucleated RBC % (auto) 0.0 Hold Purple Top SEE NOTE VBG pH 7.38 VBG pCO2 40 VBG pO2 49 VBG HCO3 24 VBG O2 Saturation 78.0 VBG Base Excess -0.7 Anion Gap 13 Estim Creat Clear Calc 61.3 Estimated GFR > 60 Random Glucose 174 H Calcium 9.2 D Assessment and Plan (1) Asthma with COPD with exacerbation: Status: Acute (2) Seronegative rheumatoid arthritis of multiple sites: Status: Acute Plan 74yo F with asthma/COPD-emphysema, carotid arterial disease, chronic venous insufficiency, HLD, PVD on DAPT, AAA, subclavian stenosis, RA on MTX, and orthostatic hypotension presenting with 3-4 days of worsening cough, dyspnea, and wheeze. Found to be hypoxic, admitting for asthma/COPD exacerbation. 1.Asthma/COPD exacerbation -pulse dose methylprednisolone -DuoNebs q.4 hours while awake -titrate O2 to maintain sats greater than equal 92% -doxycycline (2) 2.Carotid arterial disease -stable and well compensated -continue current therapies Continue current therapies 3.RA - VTE ppx: enoxaparin dispo: TBD code: full I anticipate that the patient will stay at least 2 midnights as an inpatient in the hospital due to the above reasons. It is neither reasonable nor safe to care for them in a less acute setting. Quality Stroke Does the patient have a stroke diagnosis?: No VTE Prior VTE?: No VTE Risk Level:: Medical - moderate - high VTE Device Contraindication: N/A - Device Ordered VTE Drug Contraindication: N/A - Med Ordered
[2025-02-12 04:00] VITALS: BP 135/60; PULSE 110; RESP 18; TEMP 36.2; O2SAT 91
[2025-02-12 07:28] VITALS: BP 139/67; PULSE 101; RESP 17; TEMP 36.4; O2SAT 92
[2025-02-12] MEDS: levalbuterol HCL 1.25 MG, Ipratropium Bromide 0.5 MG INHALE ×2 (08:12→11:18)
[2025-02-12 08:13] VITALS: PULSE 104; RESP 18; O2SAT 94
[2025-02-12] MEDS: Fluticasone/Umeclidinium/Vilanterol 200/62.5/25 BLST.W.DEV 1 PUFF INHALE (08:15)
[2025-02-12] MEDS: Lidocaine 4 % Patch ADH..PATCH 1 PATCH TRANSDERMA (08:38)
[2025-02-12] MEDS: Calcium Oyster Shell Elemental 500 MG TABLET PO (08:39)
[2025-02-12] MEDS: Aspirin Enteric Coated 81 MG TABLET.DR PO (08:40)
[2025-02-12] MEDS: 0.9 % Sodium Chloride Flush 3 ML SYRINGE IVFLUSH (08:48)
--- NOTE | 2025-02-12 09:19 | P.PNPL_ITS ---
Subjective Subjective Date of Service: 02/12/25 Interval history: The patient was seen on exam. Overall feeling better. We talked about her significant eosinophilic asthma. She will be a good candidate for biologic therapy with Nucala or Dupixent. The patient has been made an appointment with pulmonary next week we can further talk about these therapies. Objective Data Labs 02/11/25 07:15 02/11/25 07:15 Labs: Laboratory Results - last 24 hr 02/11/25 10:06 Hold Purple Top SEE NOTE Review of Systems Constitutional: Denies fever(s) Reports nasal congestion Cardiovascular: Denies chest pain and Reports dyspnea Respiratory: Reports cough, Reports dyspnea and Reports wheezing Gastrointestinal: Reports no additional gastrointestinal complaints Musculoskeletal: Reports no additional musculoskeletal complaints Reports system reviewed and no additional complaints, except as documented Endocrine: Reports no additional endocrine complaints Hematologic/Lymphatic: Reports no additional hematologic/lymphatic complaints Allergic/Immunologic: Reports wheezing Physical Exam 2 Vital Signs: Vital Signs: Last Vital Signs Temp 97.5 F 02/12/25 07:28 Pulse 104 H 02/12/25 08:13 Resp 18 02/12/25 08:13 BP 139/67 02/12/25 07:28 Pulse Ox 92 02/12/25 07:28 O2 Del Method Room Air 02/12/25 07:28 O2 Flow Rate 1 02/11/25 07:36 BMI result Body Mass Index 26.3 Const: General: comfortable HEENT: Head: Yes normocephalic Neck: Neck: Yes supple Chest: Chest palpation & inspection: normal inspection of the chest Resp: Effort & Inspection: normal respiratory effort Auscultation: wheezes and diminished lung sounds Cardio: Heart sounds: S1 normal heart sound present and S2 normal heart sound present GI: Palpation (GI): Soft to palpation Skin: General skin exam: no rashes or lesions noted Extrem: General: Yes no clubbing, cyanosis or edema Procedures Date of Service Date of Service: 02/12/25 Assessment and Plan Assessment and plan (1) Asthma exacerbation: Status: Acute (2) Eosinophilia: Status: Acute Plan Switch over to prednisone with a slow taper. Continue Trelegy 200 Continue Singulair Short-acting beta agonist as needed The patient already has a nebulizer She will follow-up with Pulmonary next week we can talk about biologic therapy and talk about extending her prednisone course. Time Spent With Patient Time: Total time managing care of this patient today ____ minutes. Progress Note: Quality Stroke Does the patient have a stroke diagnosis?: No
[2025-02-12 11:10] VITALS: BP 133/60; PULSE 112; RESP 15; TEMP 36.2; O2SAT 92
[2025-02-12 11:22] VITALS: PULSE 102; RESP 18
--- NOTE | 2025-02-12 11:46 | PM.DS ---
DS: Providers Provider Date of Service: 02/12/25 Date of admission: 02/10/25 12:15 Date of discharge: 02/12/25 Primary care physician: Teresita Munroe DO Consults: 02/10/25 13:45 Consult to Pulmonology Routine Consulting Provider: [facility] Pulmonology Services Reason for consultation: asthma/emphysema 02/10/25 15:04 Consult to Orthopedics Routine Consulting Provider: [facility] Orthopedic Surgeons Reason for consultation: humeral head AVN DS: Diagnosis Discharge Diagnosis (1) Asthma exacerbation: Status: Acute (2) Eosinophilia: Status: Acute DS: Summary Hospital Course Hospital Course: 74yo F with asthma/COPD-emphysema, carotid arterial disease, chronic venous insufficiency, HLD, PVD on DAPT, AAA, subclavian stenosis, RA on MTX, and orthostatic hypotension presenting with 3-4 days of worsening cough, dyspnea, and wheeze. Cough productive of small amount of clear sputum. She was recently on prednisone as an outpatient 2 weeks ago for asthma exacerbation. She endorses cold-like symptoms. She has an appointment in April to establish Pulmonology care. She is not on home oxygen. No fever, hemoptysis, or chills. In the ED, she was mildly hypoxic and started on supplemental oxygen. She was given magnesium, albuterol, and methylprednisolone. CTA negative for PE. Flu/Covid-19/RSV negative. Hospital Course Patient admitted to monitor floor were telemetry failed to demonstrate any acute dysrhythmias. She was treated with IV doxycycline and aggressive pulmonary toilet along with pulse dose steroids. She was seen in consultation by carton forming machine tender; agreed with therapies. On the day of discharge she is without oxygen requirement and ambulating freely in the room. At this point in time she is medically acceptable to be discharge to complete a course of oral doxycycline and a prednisone taper. She will follow up with Dr. Parish as an outpatient Time Attestation Discharge Coordination Time (in mins): 35 Quality: Safe Use of Opioids Does Pt have an Active Cancer Diagnosis on the Problem List?: No Quality: Stroke Does the patient have a stroke diagnosis?: No Physical Exam Vital Signs: Vital Signs: Last Vital Signs Temp 97.2 F 02/12/25 11:10 Pulse 102 H 02/12/25 11:22 Resp 18 02/12/25 11:22 BP 133/60 02/12/25 11:10 Pulse Ox 92 02/12/25 11:10 O2 Del Method Room Air 02/12/25 11:10 O2 Flow Rate 1 02/11/25 07:36 BMI result Body Mass Index 26.3 Const: Other: Awake alert no acute distress Resp: Other: Diminished at baseline; scattered wheezes Cardio: Other: No S4; positive S1-S2; no S3 murmurs rubs or gallops GI: Other: Soft nontender nondistended normoactive bowel sounds Extrem: Other: No edema bilaterally DS: Data Data Completed and Pending Completed studies during hospitalization [Text1]: Procedures Replacement of Right Shoulder Joint with Synthetic Substitute, Open Approach (01/24/22) Discharge Plan Discharge Anticipated Discharge Date/Time: 02/12/25 11:37 Patient Disposition: Home, Self-Care Discharge Diagnosis: Asthma/COPD exacerbation Referrals: Teresita Munroe DO [Primary Care Provider, Internal Medicine] - 1 Week Discharge Medications: New doxycycline monohydrate 100 mg Capsule 100 mg PO Q12H Qty: 14 0RF prednisone 10 mg tablet See Rx Instructions .Route .COMPLEX Qty: 45 0RF Rx Instructions: 10 mg orally; 5 tabs p.o. daily x3 days; 4 tabs p.o. daily x3 days; 3 tabs daily x3 days; 2 tabs daily x3 days; 1 tab daily x3 days Continued cholecalciferol (vitamin D3) 25 mcg (1,000 unit) capsule 25 mcg PO DAILY 90 Days Qty: 90 2RF folic acid 1 mg tablet 1 mg PO DAILY Qty: 90 1RF calcium carbonate [Calcium 600] 600 mg calcium (1,500 mg) tablet 600 mg PO DAILY Qty: 30 6RF Prolia 60 mg/mL syringe 60 mg subcut [id number] clopidogrel 75 mg tablet 75 mg PO DAILY ipratropium-albuterol 0.5 mg-3 mg(2.5 mg base)/3 mL solution for nebulization 3 ml INHALATION QID PRN (Reason: Shortness Of Breath Or Wheezing) tramadol 50 mg tablet 1 tab PO TID PRN (Reason: Pain) buspirone 10 mg tablet 1 tab PO BID albuterol sulfate [Ventolin HFA] 90 mcg/actuation HFA aerosol inhaler 2 puff inhalation Q4-6H PRN (Reason: Wheezing) quetiapine 100 mg tablet 1 tab PO BEDTIME midodrine 2.5 mg tablet 1 tab PO BID methotrexate sodium 2.5 mg tablet 7.5 mg PO MO docusate sodium 100 mg capsule 100 mg PO BID PRN (Reason: Constipation) cetirizine 10 mg tablet 10 mg PO DAILY Trelegy Ellipta 200-62.5-25 mcg blister with device 1 ea INHALATION DAILY fenofibrate 160 mg tablet 160 mg PO DAILY duloxetine 60 mg capsule,delayed release(DR/EC) 60 mg PO BID rosuvastatin 40 mg tablet 40 mg PO DAILY metformin 500 mg tablet extended release 24 hr 500 mg PO BID montelukast 10 mg tablet 10 mg PO DAILY fexofenadine 180 mg tablet 180 mg PO DAILY aspirin 81 mg tablet,delayed release (DR/EC) 81 mg PO DAILY Deep Sea Nasal 0.65 % aerosol,spray 1 - 2 spray intranasal Q2-3H PRN (Reason: congestion) acetaminophen 650 mg tablet extended release 650 mg PO TID lidocaine 5 % adhesive patch,medicated 1 patch topical DAILY gabapentin 300 mg capsule 300 mg PO DAILY diclofenac sodium 1 % gel 1 ea topical QID Repatha SureClick 140 mg/mL pen injector 140 mg subcut Q2W Discharge Orders: Discharge Order (Routine); Ordered 02/12/25 Ordered By: Javier Genao Diet: Advance to usual diet Activity on Discharge: As tolerated Stand Alone Forms: Patient Portal Discharge page, Work/School Release Print Language: Turkish Care Plan Goals: Continue all medicines as taken prior to hospitalization Health Concerns: Complete course of doxycycline 100 mg twice daily as well as a prednisone taper Plan of Treatment: Follow up with PCP/pulmonology as scheduled Assessment: See discharge summary
--- NOTE | 2025-02-12 11:52 | MHC.CM.PN ---
Pt has been medically cleared to [place], she will go home via private transport, plan is self care.
[2025-02-16 11:53] LABS: Asperg fumigatus Precip Abs NEGATIVE (NEGATIVE); Micropoly faeni Abs NEGATIVE (NEGATIVE); Saccharo pora viridis Abs NEGATIVE (NEGATIVE); Thermo candidus Abs NEGATIVE (NEGATIVE)
== END 2025-02-12 12:40 | disposition home or self-care (01) | DRG 190 ==
LOC: HO.ED 09:44 → HO.EDOVER 12:19 → HO.IMC 22:02
PROVIDERS: Hospitalist; Physician Assistant Medical; Admitting Provider Family Medicine; Emergency Provider Emergency Medicine; PCP Family Medicine; Visit Provider Hospitalist
DX: J43.9 Emphysema, unspecified (principal); J96.01 Acute respiratory failure with hypoxia; J45.901 Unspecified asthma with (acute) exacerbation; J82.83 Eosinophilic asthma; I25.10 Atherosclerotic heart disease of native coronary artery without angina pectoris; M06.09 Rheumatoid arthritis without rheumatoid factor, multiple sites; E11.40 Type 2 diabetes mellitus with diabetic neuropathy, unspecified; I87.2 Venous insufficiency (chronic) (peripheral); Z20.822 Contact with and (suspected) exposure to COVID-19; Z87.891 Personal history of nicotine dependence; Z79.02 Long term (current) use of antithrombotics/antiplatelets; Z79.82 Long term (current) use of aspirin; Z79.84 Long term (current) use of oral hypoglycemic drugs; Z79.620 Long term (current) use of immunosuppressive biologic; Z79.631 Long term (current) use of antimetabolite agent; Z79.899 Other long term (current) drug therapy
CPT/HCPCS: 36415; 71046; 71275; 80048; 80053; 82785; 82803; 83735; 84484; 85025; 86331; 86606; 86609; 87502; 87635; 93005; 94640; 99285; J1650; J2919; J3475; Q9967

== ENCOUNTER → 2025-02-10 08:49 | Outpatient (BNV) | payer OTHER, SELFPAY | PROVIDERS: Emergency Provider Emergency Medicine; PCP Family Medicine; Visit Provider Radiology Diagnostic Radiology | DX: R09.02 Hypoxemia (principal); R06.02 Shortness of breath; R00.0 Tachycardia, unspecified; R16.2 Hepatomegaly with splenomegaly, not elsewhere classified | CPT/HCPCS: 71046; 71275 ==

== ENCOUNTER → 2025-02-10 09:00 | Outpatient (BNV) | payer OTHER, SELFPAY | PROVIDERS: Emergency Provider Emergency Medicine; PCP Family Medicine; Visit Provider Internal Medicine Cardiovascular Disease | DX: R00.0 Tachycardia, unspecified (principal); R94.31 Abnormal electrocardiogram [ECG] [EKG] | CPT/HCPCS: 93010 ==

== ENCOUNTER → 2025-02-10 12:15 | Outpatient (BNV) | payer OTHER, SELFPAY | PROVIDERS: Admitting Provider Family Medicine; Emergency Provider Emergency Medicine; PCP Family Medicine; Visit Provider Hospitalist | DX: J45.901 Unspecified asthma with (acute) exacerbation (principal); D72.19 Other eosinophilia | CPT/HCPCS: 99223 ==

== ENCOUNTER → 2025-02-10 12:15 | Outpatient (BNV) | payer OTHER, SELFPAY | PROVIDERS: Admitting Provider Family Medicine; Emergency Provider Emergency Medicine; PCP Family Medicine; Visit Provider Family Medicine | DX: J45.901 Unspecified asthma with (acute) exacerbation (principal); D72.19 Other eosinophilia | CPT/HCPCS: 99223; 99232; 99239 ==

== ENCOUNTER 2025-02-19 14:33 | Outpatient (AMB) | payer OTHER, SELFPAY ==
[2025-02-19 14:41] VITALS: BP 138/52; PULSE 90; O2SAT 92; BMI 25.0
--- NOTE | 2025-02-19 14:41 | MHC.OFFVIS ---
Vital Signs 02/19/25 14:41 Height 5 ft 3 in Weight 141 lb 1.533 oz BMI 25.0 BP 138/52 L Blood Pressure Location Lt brachial Position Sitting Pulse 90 Pulse Source Pulse Oximeter Pulse Oximetry (%) 92 Oxygen Delivery Method Room Air Intake Visit Reasons: Asthma/Hosp Follow Up Allergies lobster Allergy (Uncoded 02/10/25 08:49) Nausea and Vomiting HPI Comments Details: The patient is a 74-year-old lady with a known history of asthma who apparently has been having worsening respiratory symptoms for the last couple months. She has had multiple exacerbations requiring prednisone. Appears that she is actually okay when she is on the prednisone but when she tapers off her breathing gets significantly worse. She has had already multiple evaluations in the ER and urgent care. Recently she was placed on Trelegy 200 mcg dose and she is tolerating that well. In addition to that the patient does have a nebulizer that she uses regularly. This time the patient started having worsening respiratory symptoms again when she taper off the prednisone. She could not tolerate the symptoms and a longer has significant respiratory distress him she was brought to the [facility] ER. There she was in distress and she was treated appropriately for significant status asthmaticus. The patient did have blood work demonstrating significant eosinophilia with an absolute eosinophil count of 600 even after being recently on steroids. The patient did have a CTA that I personally reviewed. The patient does have some emphysema from previous smoking and also has evidence of bronchitis. No evidence of any parenchymal disease or pneumonitis appreciated. No evidence of any blood clots appreciated. The patient is started on Solu-Medrol and respiratory treatments and she is already starting to feel better. Denies any sick contacts. The patient is not aware of any recent new hobbies or constructions or mold exposures in the house. She does have a pet dog but she has had it for many years. Denies any other new exposures. 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 She will be a very good candidate for biologics. We will stabilize her with corticosteroids at this time continue with neb treatments and then she will follow-up closely as an outpatient. 02/19/2025 the patient is here for a pulmonary follow-up visit. She continues on prednisone about 30 mg daily. She is feeling better although she still having significant chest tightness and congestion. The patient did have a spirometry in the office still demonstrating an obstruction with an FEV1 to FVC of 67% it an FEV1 of 1.75 L. The patient does continue on Trelegy inhaler. Again she has significant eosinophilia which is above 600. The patient will benefit from biologic therapy at this time specially with multiple exacerbations and frequent prednisone use for the last several months. The patient is agreeable at this time. Will start the process to getting her a Nucala. We did look at a CT scan that she had in the hospital. Personally by me demonstrating moderate degree emphysema. No other significant parenchymal disease. The patient follow-up in 3 months if she has any issues prior to this she will call for further recommendations. [facility] Medical History (Updated 02/19/25 @ 22:35 by Adria Parish MD) Seronegative rheumatoid arthritis of multiple sites Eosinophilia Long-term use of Plaquenil Encounter for methotrexate monitoring Encounter for monitoring tocilizumab therapy Vitamin D deficiency Hypothyroxinemia Osteoarthritis (arthritis due to wear and tear of joints) Chronic venous insufficiency Subclavian artery stenosis Carotid arterial disease AAA (abdominal aortic aneurysm) Diabetes Elevated cholesterol COPD (chronic obstructive pulmonary disease) Asthma PVD (peripheral vascular disease) CAD (coronary artery disease) HTN (hypertension) Surgical History (Updated 02/13/25 @ 00:00 by Henry Skinner) History of arthroplasty of right shoulder Hx of removal of cyst Hx of endoscopy History of colonoscopy Family History Father No problems noted. Mother Family history of high blood pressure Hx of type 1 diabetes mellitus Social History Household Members: None Housing: Apartment Are you a primary director of managed care to a significant other at home: No Do you presently have visiting nurse or other home services: No Alcohol intake: never Patient Tobacco Use Status: Former Tobacco user Tobacco use type: Cigarette service: No Current occupational status: disabled Current occupation: left hand Review of Systems Const Denies fever(s) Eyes Reports no additional complaints ENT Reports nasal congestion Card Denies chest pain, Denies chest pain at rest, Denies chest pain with activity and Denies pedal edema Resp Reports chest congestion, Reports cough and Reports wheezing GI Denies abdominal pain Musc Denies abnormal gait, Denies muscle cramps and Denies radiating pain into limb Skin/Breast Denies skin ulcer and Denies wounds Neuro Denies abnormal gait Psych Reports no additional complaints Aller/Immun Reports wheezing Physical Exam Vital Signs: Last Vital Signs Pulse 90 02/19/25 14:41 BP 138/52 L 02/19/25 14:41 Pulse Ox 92 02/19/25 14:41 Oxygen Delivery Method Room Air 02/19/25 14:41 BMI result Body Mass Index 25.0 Last Vital Signs Temp 97.5 F 02/12/25 07:28 Pulse 104 H 02/12/25 08:13 Resp 18 02/12/25 08:13 BP 139/67 02/12/25 07:28 Pulse Ox 92 02/12/25 07:28 O2 Del Method Room Air 02/12/25 07:28 O2 Flow Rate 1 02/11/25 07:36 BMI result Body Mass Index 26.3 Const General: comfortable HEENT Head: Yes normocephalic Neck Neck: Yes supple Chest Chest palpation & inspection: normal inspection of the chest Resp Effort & Inspection: normal respiratory effort Auscultation: wheezes and diminished lung sounds Cardio Heart sounds: S1 normal heart sound present and S2 normal heart sound present GI Palpation (GI): Soft to palpation Skin General skin exam: no rashes or lesions noted Extrem General: Yes no clubbing, cyanosis or edema Office Procedures Spirometry Testing Spirometry Comments: Spirometry done in the office, Dr. Parish has the results results scanned to her chart. 25546- Spirometry Results Reviewed Results Reviewed: personally reviewed CT chest +empysema, no ILD Assessment & Plan Assessment & Plan (1) Asthma: Code(s): J45.909 - Unspecified asthma, uncomplicated Category: Medical Qualifiers: Asthma severity: severe Asthma persistence: persistent Asthma complication type: uncomplicated Qualified Code(s): J45.50 - Severe persistent asthma, uncomplicated (2) COPD (chronic obstructive pulmonary disease): Code(s): J44.9 - Chronic obstructive pulmonary disease, unspecified Category: Medical Qualifiers: COPD type: emphysema Emphysema type: centrilobular Qualified Code(s): J43.2 - Centrilobular emphysema Plan Prednisone taper continue Trelegy SHEEBA as needed Nebulizer therapy Continue Prednisone 10mg daily Start Nucala F/U 2-3 months Orders: Orders AMB Spirometry Testing Today J44.9 - Chronic obstructive pulmonary disease, unspecified Medications: New prednisone 10 mg PO DAILY 30 tabs 2RF 30 days Coding Level of Care Code Tele Est Pt Level 5 (66466) Diagnoses Severe persistent asthma without complication J45.50 Asthma severity: severe Asthma persistence: persistent Asthma complication type: uncomplicated Centrilobular emphysema J43.2 COPD type: emphysema Emphysema type: centrilobular CPT Codes Spirometry - CPT: 02843- Spirometry ([id number]) Time Spent (min) 40
--- OUTSIDE RECORDS SUMMARY | 2025-02-19 16:19 | XMS_ITS | Clinical Summary ---
Author Organization [facility] Address [address] [address] Phone Care Team Providers Care Veneer Repairer Machine Name Role Phone Teresita Munroe DO [...] topic Medical Devices Not on file [place] [address] [place] [address] MEDICARE REPLACEMENT [employer] [id number] [facility] MEDICARE REPLACEMENT [place] [address] [place] [address] MEDICARE REPLACEMENT [facility] [place] [address] [place] [address] [place] [id number] MEDICARE REPLACEMENT [facility] [employer] MEDICARE REPLACEMENT Care Teams Veneer Repairer Machine Relationship Specialty Start Date End Date Teresita Munroe DO [address] [place] [id number] PCP - General Family Medicine 01/03/22 Additional Source Comments The information contained in this document represents components of the legal health record. It is not the complete legal health record.[facility]
== END 2025-02-19 15:18 | disposition home or self-care (01) ==
LOC: HO.HPS 14:33
PROVIDERS: PCP Family Medicine; Referring Provider Hospitalist; Visit Provider Hospitalist
DX: J45.909 Unspecified asthma, uncomplicated (principal); J44.9 Chronic obstructive pulmonary disease, unspecified
CPT/HCPCS: 94010; 99215

== ENCOUNTER → 2025-02-19 14:33 | Outpatient (BNVA) | payer OTHER, SELFPAY | PROVIDERS: PCP Family Medicine; Referring Provider Hospitalist; Visit Provider Hospitalist | DX: J45.50 Severe persistent asthma, uncomplicated (principal); J43.2 Centrilobular emphysema; Z79.52 Long term (current) use of systemic steroids | CPT/HCPCS: 94010; 99212 ==

== ENCOUNTER 2025-03-26 09:22 | Outpatient (REF) | payer OTHER, SELFPAY ==
--- NOTE | ~2025-03-26 | US_ITS ---
EXAMINATION: US ABDOMEN COMPLETE CLINICAL INFORMATION: Fatty liver. 4.1 cm abdominal aorta aneurysm... COMPARISON: March 21, 2023 and June 16, 2024. TECHNIQUE: Real-time ultrasound of the abdomen using grayscale and color Doppler technique. FINDINGS: PANCREAS: No peripancreatic fluid collections. ABDOMINAL AORTA: Abdominal aorta diameter is 3.9 cm in the mid segment, 4.3 cm in the mid to distal segment. INFERIOR VENA CAVA: Visualized portions are normal. LIVER: Liver measures 14 cm. Coarse echotexture. No nodular surface. No solid or cystic lesion. No intrahepatic biliary ductal dilatation. GALLBLADDER: Fluid-filled nondistended. No pericholecystic fluid collection or gallbladder wall thickening. COMMON BILE DUCT: 5 mm. RIGHT KIDNEY: 10 cm. Normal echotexture. Normal renal cortical thickness. No hydronephrosis. No solid or cystic lesion.. LEFT KIDNEY: 9 cm. Normal echotexture. Normal renal cortical thickness. No hydronephrosis. No solid or cystic lesion. SPLEEN: 11 cm. No gross solid or cystic lesion. FREE FLUID: None. US/US abdomen complete IMPRESSION: Probable hepatic steatosis versus hepatocellular disease. 4.3 cm aneurysm, abdominal aorta. No hydronephrosis. No cholelithiasis or choledocholithiasis. No ascites. Electronically signed by: Sky Holland MD 03/26/2025 10:53 AM EDT
--- OUTSIDE RECORDS SUMMARY | 2025-03-26 10:25 | XMS_ITS | Clinical Summary ---
Author Organization [facility] Address [address] [address] Phone Care Team Providers Care Auto Overhauler Name Role Phone Teresita Munroe DO Primary [...] 11/07/2014 Adult Td,Tdap Booster 12/17/2022 12/17/2012, 007 RSV VACCINE (1 - 1-dose 75+ series) 2024 INFLUENZA VACCINE (#1) 2025 , 04/20/2020, 03/19/2020, Additional history exists COVID-19 VACCINE ( season) 2025 05/09/2021, 09/09/2020, 08/12/2020, Additional history exists PNEUMOCOCCAL VACCINES (50+ years) Completed 09/28/2016, 04/05/2015, [...] topic Medical Devices Not on file Insurance [facility] MEDICARE REPLACEMENT [place] [place] [id number] , [address] [address] [facility] [place] [id number] [address] [address] [place] [id number] [id number] [place] [address] MEDICARE [place]AC[place] [address] [place] [address] MEDICARE REPLACEMENT [facility] [employer] MEDICARE REPLACEMENT Care Teams Auto Overhauler Relationship Specialty Start Date End Date Teresita Munroe DO [address] [place] [phone] PCP - General Family Medicine 01/03/22 Additional Source Comments The information contained in this document represents components of the legal health record. It is not the complete legal health record.[facility]
== END 2025-03-26 09:23 | disposition home or self-care (01) ==
LOC: HO.US 09:22
PROVIDERS: PCP Family Medicine; Visit Provider Family Medicine
DX: K76.0 Fatty (change of) liver, not elsewhere classified (principal)
CPT/HCPCS: 76700

== ENCOUNTER → 2025-03-26 09:24 | Outpatient (BNV) | payer OTHER, SELFPAY | PROVIDERS: PCP Family Medicine; Visit Provider Radiology Diagnostic Radiology | DX: I71.40 Abdominal aortic aneurysm, without rupture, unspecified (principal); K76.0 Fatty (change of) liver, not elsewhere classified | CPT/HCPCS: 76700 ==

== ENCOUNTER 2025-04-01 15:49 | Outpatient (REF) | payer OTHER, SELFPAY ==
--- OUTSIDE RECORDS SUMMARY | 2025-03-31 08:30 | XMS_ITS | Encounter Summary ---
Author Organization [employer] Address [address] [facility] 7t [place] [address] Care Team Providers Care Environmental Services Specialist Name Role Phone Teresita Munroe DO Primary Care Provider [phone] Reason for Visit * Reason Comments Dental Exam Pt is experiencing p ain on lower anterior Encounter Details Date Type Department Care Team (Late st Contact Info) Description 03/31/2025 8:30 AM EDT Office Visit [facility] [address] [place] [address] Social History Tobacco Use Types Packs/Day Years Used Date Smoking Tobacco: Former Cigarettes Passive Smoke Exposure: Past Smokeless Tobacco: Former Alcohol Use Standard Drinks/Week Comments Never 0 [...] Description 04/10/2025 9:00 AM EST Telemedicine [facility] [address] [place] [address] Ana Beach RN 06/02/2025 8:30 AM EST Office Visit [facility] [address] [place] [address] Rasta Torres DDS [address] [place] [address] Scheduled Orders Name Type Priority Associated Diagnoses Orde r Schedule 22 22 EXTRACTION, ERUPTED TOOTH OR EXPOSED ROOT (ELEVATION/FORCEPS REMOVAL) Dental Routine [address] arting 03/31/2025 23 23 EXTRACTION, ERUPTED TOOTH OR EXPOSED ROOT (ELEVATION/FORCEPS REMOVAL) Dental Routine [address] arting 03/31/2025 24 24 EXTRACTION, ERUPTED TOOTH OR EXPOSED ROOT (ELEVATION/FORCEPS REMOVAL) Dental Routine [address] arting 03/31/2025 25 25 EXTRACTION, ERUPTED TOOTH OR EXPOSED ROOT (ELEVATION/FORCEPS REMOVAL) Dental Routine [address] arting 03/31/2025 26 26 EXTRACTION, ERUPTED TOOTH OR EXPOSED ROOT (ELEVATION/FORCEPS REMOVAL) Dental Routine [address] arting 03/31/2025 27 27 EXTRACTION, ERUPTED TOOTH OR EXPOSED ROOT (ELEVATION/FORCEPS REMOVAL) Dental Routine [address] arting 03/31/2025 Radhika Radhika COMPLETE DENTURE - MANDIBULAR Dental Routine 1 Occurrenc es starting 03/31/2025 Max Max COMPLETE DENTURE - MAXILLARY Dental Routine [address] arting 03/31/2025 DENTURE IMPRESSION Dental Routine 1 Occu rrences starting 03/31/2025 BITE REGISTRATION Dental Routine 1 Occur rences starting 03/31/2025 WAX TRY IN Dental Routine 1 Occurrences starting 03/31/2025 documented as of this encounter Visit Diagnoses Not on filedocumented in this encounter Additional Health Concerns Assessment Noted Time PHQ-9 Depression Total Score: 5 01/22/20 24 9:55 AM EDT documented as of this encounter Care Teams Environmental Services Specialist Relationship Specialty Start Date End Date Teresita Munroe DO [address] [place] [phone] PCP - General Family Medicine 07/28/14 documented as of this encounter
--- NOTE | ~2025-04-01 | CT_ITS ---
CLINICAL HISTORY: interstitial lung changes on CXR for eval CT chest without contrast Comparison: 02/10/2025 Findings: Emphysema without acute infiltrates. No significant mediastinal adenopathy. No significant free pleural fluid. No significant focal bony abnormalities. Impression: No acute processes This document has been electronically signed by: Jona Belcher MD on 04/01/2025 22:55:11
--- OUTSIDE RECORDS SUMMARY | 2025-04-01 19:58 | XMS_ITS | Encounter Summary ---
Author Organization [employer] Address [address] [facility] 7[address] [place] [address] Care Team Providers Care Mortgage Advisor Name Role Phone Teresita Munroe DO Primary Care Provider + [phone] Encounter Details Date Type Department Care Team ([facility] st Contact Info) Description 09/14/2023 Orders Only [facility] [address] [place] [address] ProviderFlor MD Social History Tobacco Use Types [...] Info) Description 04/10/2025 9:00 AM EST Telemedicine [facility] [address] [place] [address] Ana Beach RN 06/02/2025 8:30 AM EST Office Visit [facility] [address] [place] [address] Rasta Torres DDS [address] [place] [address] documented as of this encounter Procedures Procedure [...] on filedocumented in this encounter Care Teams Mortgage Advisor Relationship Specialty Start Date End Date Teresita Munroe DO [address] [place] [address] PCP - General Family Medicine 07/28/14 documented as of this encounter
--- OUTSIDE RECORDS SUMMARY | 2025-04-01 19:58 | XMS_ITS | Encounter Summary ---
Author Organization [facility] Address [address] [facility] 7t [place] [address] Care Team Providers Care Disbursement Clerk Name Role Phone Teresita Munroe DO Primary Care Provider Encounter Details Date Type Department Care Team (Latest Contact Info) Description 12/22/2021 Abstract [facility] CONVERSIONS Dental, Provider, DDS Social History [...] 04/10/2025 9:00 AM EST Telemedicine [facility] [address] [place] [address] Ana Beach RN 06/02/2025 8:30 AM EST Office Visit [facility] ADULT D[facility] [address] [place] [address] Rasta Torres, DDS [address] [place] [address] documented as of this encounter Visit Diagnoses Not on filedocumented in this encounter Care Teams Disbursement Clerk Relationship Specialty Start Date End Date Teresita Munroe DO [address] [place] [address] PCP - General Family Medicine 07/28/14 documented as of this encounter
--- OUTSIDE RECORDS SUMMARY | 2025-04-01 19:58 | XMS_ITS | Clinical Summary ---
Author Organization [facility] Address [address] [address] Phone Care Team Providers Care Senior Scheduler Name Role Phone Teresita Munroe DO Primary [...] topic Medical Devices Not on file Insurance [facility] MEDICARE REPLACEMENT [place] [id number] , [address] [address] [facility] [place] [address] [address] [address] [place] [address] , [id number] [place] [address] MEDICARE [place] [address] [place] [address] MEDICARE REPLACEMENT [facility] [employer] MEDICARE REPLACEMENT Care Teams Senior Scheduler Relationship Specialty Start Date End Date Teresita Munroe DO [address] [place] [address] [phone] PCP - General Family Medicine 01/03/22 Additional Source Comments The information contained in this document represents components of the legal health record. It is not the complete legal health record.[facility]
--- OUTSIDE RECORDS SUMMARY | 2025-04-01 19:58 | XMS_ITS | Encounter Summary ---
Author Organization [employer] Address [address] [facility] 7t [place] [address] Care Team Providers Care Gas Combustion Engineer Name Role Phone Teresita Munroe DO Primary Care Provider [phone]- [phone] Reason for Visit * Reason Comments Med Refill Encounter Details Date Type Department Care Team ([facility] st Contact Info) Description 07/02/2023 Refill [facility] MEDICINE [address] [place] [address] Teresita Munroe DO [address] [place] [address] Chronic obstructive pulmonary disease, unspecified COPD type [...] Info) Description 04/10/2025 9:00 AM EST Telemedicine [facility] MEDICINE [address] [place] [address] [phone] Ana Beach RN 06/02/2025 8:30 AM EST Office Visit [facility] ADULT DENTAL [address] [place] [address] Rasta Torres DDS [address] [place], [place] [phone] documented as of this encounter Visit Diagnoses Diagnosis Chronic obstructive pulmonary disease, unspecified COPD type (CMS/HCC) (HCC) documented in this encounter Care Teams Gas Combustion Engineer Relationship Specialty Start Date End Date Teresita Munroe DO [address] [place] [id number] PCP - General Family Medicine 07/28/14 documented as of this encounter
--- OUTSIDE RECORDS SUMMARY | 2025-04-01 19:58 | XMS_ITS | Encounter Summary ---
Author Organization [employer] Address [address] [facility] 7t [place] [address] Care Team Providers Care Hat And Cap Sewer Name Role Phone Teresita Munroe DO Primary Care Provider [phone]- [phone] Reason for Visit * Reason Onset Date Comments Results 04/01/2025 Encounter Details Date Type Department Care Team ([facility] st Contact Info) Description 04/01/2025 Telephone [facility] MEDICINE [address] [place] [address] Teresita Munroe DO [address] [place] [address] Results Social History Tobacco Use Types Packs/Day Years [...] encounter Miscellaneous Notes * Telephone Encounter - Aniya Wong RN - 04/01/2025 12:24 PM EDT PCP has reviewed abdominal US results which returned showing patients abdominal aorta aneurysm is slightly larger (4.1cm to 4.3cm). PCP will refer patient to vascular provider for monitoring guidelines. TC placed to patient [phone] in regards to above message. RN spoke to patients ASIC ENGINEER (Leonora) in regards to above results. Leonora reports she will notify the patient. Leonora is aware the patient willreceive a letter in the mail with vascular appointment date and time or a call from the office withappointment details. Leonora to f/u PRN. documented in this encounter Plan of Treatment Upcoming Encounters Date Type Department Care Team (Late st Contact Info) Description 04/10/2025 9:00 AM EST Telemedicine [facility] MEDICINE [address] [place], [place] [phone] Ana Beach RN 06/02/2025 8:30 AM EST Office Visit [facility] ADULT DENTAL [address] [place] [address] Rasta Torres DDS [address] [place] [address] documented as of this encounter Visit Diagnoses Not on filedocumented in this encounter Additional Health Concerns Assessment Noted Time PHQ-9 Depression Total Score: 5 01/22/20 24 9:55 AM EDT documented as of this encounter Care Teams Hat And Cap Sewer Relationship Specialty Start Date End Date Teresita Munroe DO [address] [place] [address] PCP - General Family Medicine 07/28/14 documented as of this encounter
--- OUTSIDE RECORDS SUMMARY | 2025-04-01 19:58 | XMS_ITS | Encounter Summary ---
Author Organization [employer] Address [address] [facility] 7t [place] [address] Care Team Providers Care Risk Management Internship Name Role Phone Teresita Munroe DO Primary Care Provider +1- [phone] Reason for Visit * Reason Onset Date Comments Durable Medical Equipment 02/04/2025 DME Re quest: Elicia Walker/Pola Encounter Details Date Type Department Care Team ([facility] st Contact Info) Description 02/04/2025 Telephone [facility] MEDICINE [address] [place] [address] Teresita Munroe DO [address] [place] [address] Durable Medical Equipment (DME Request: Patricaator Walker/Wipes) Social History Tobacco Use Types Packs/Day Years [...] encounter Miscellaneous Notes * Telephone Encounter - Nicky Parish - 04/01/2025 10:39 AM EDT DME orders for both items listed were generated and sent to [facility] with supporting documentation. Confirmation was uploaded to Media. * Telephone Encounter - Kelly Amaro - 02/04/2025 11:53 AM EDT Tc from [facility] with [facility] requesting a new scrip for DME - Walker Rolator with seat - 3 pack of baby wipes x month To be sent to: - [facility] [address] [place] [address] - [address] [facility] documented in this encounter Plan of Treatment Upcoming Encounters Date Type Department Care Team (Late st Contact Info) Description 04/10/2025 9:00 AM EST Telemedicine [facility] MEDICINE [address] [place] [phone] Ana Beach RN 06/02/2025 8:30 AM EST Office Visit [facility] ADULT DENTAL [address] [place] [address] Rasta Torres DDS [address] [place] [address] documented as of this encounter Visit Diagnoses Not on filedocumented in this encounter Additional Health Concerns Assessment Noted Time PHQ-9 Depression Total Score: 5 01/22/20 24 9:55 AM EDT documented as of this encounter Care Teams Risk Management Internship Relationship Specialty Start Date End Date Teresita Munroe DO [address] [place] [address] PCP - General Family Medicine 07/28/14 documented as of this encounter
--- OUTSIDE RECORDS SUMMARY | 2025-04-01 19:58 | XMS_ITS | Encounter Summary ---
Author Organization [employer] Address [address] [facility] 7t [place] [address] Care Team Providers Care Dairy Equipment Repairer Name Role Phone Teresita Munroe DO Primary Care Provider +1- [phone] Encounter Details Date Type Department Care Team ([facility] st Contact Info) Description 12/18/2024 Telephone [facility] MEDICINE [address] [place] [address] Teresita Munroe DO [address] [place] [address] Social History Tobacco Use Types Packs/Day Years [...] AM EST Telemedicine [facility] MEDICINE [address] [place] [address] Ana Beach RN 06/02/2025 8:30 AM EST Office Visit [facility] ADULT DENTAL [address] [place] [address] Rasta Torres DDS [address] [place] [address] documented as of this encounter Visit Diagnoses Not on filedocumented in this encounter Additional Health Concerns Assessment Noted Time PHQ-9 Depression Total Score: 5 01/22/20 24 9:55 AM EDT documented as of this encounter Care Teams Dairy Equipment Repairer Relationship Specialty Start Date End Date Teresita Munroe DO [address] [place] [id number] PCP - General Family Medicine 07/28/14 documented as of this encounter
--- OUTSIDE RECORDS SUMMARY | 2025-04-01 19:58 | XMS_ITS | Encounter Summary ---
Author Organization [employer] Address [address] [facility] 7t [place] [address] Care Team Providers Care Box Annealer Name Role Phone Teresita Munroe DO Primary Care Provider +1- [phone] Reason for Visit * Reason Onset Date Comments Med Refill 03/30/2025 Encounter Details Date Type Department Care Team (Late st Contact Info) Description 03/30/2025 Refill [facility] MED & PEDS [address] [place] [address] Teresita Munroe DO [address] [place] [address] Chronic pain of both shoulders Social History [...] Addendum Note - Kurt Beach RN - 03/30/2025 11:17 AM EDTAddended by: KURT BEACH on: 03/30/2025 11:17 AM Modules accepted: Orders * Telephone Encounter - Jia Escobar LPN - 03/30/2025 10:41 AM EDT Received request on traMADol (Ultram) 50 MG tablet documented in this encounter Plan of Treatment Upcoming Encounters Date Type Department Care Team (Late st Contact Info) Description 04/10/2025 9:00 AM EST Telemedicine [facility] MEDICINE [address] [place] [address] Kurt Beach RN 06/02/2025 8:30 AM EST Office Visit [facility] ADULT DENTAL [address] [place] [address] Rasta Torres DDS [address] [place] [address] documented as of this encounter Visit Diagnoses Diagnosis Chronic pain of both shoulders documented in this encounter Additional Health Concerns Assessment Noted Time PHQ-9 Depression Total Score: 5 01/22/20 24 9:55 AM EDT documented as of this encounter Care Teams Box Annealer Relationship Specialty Start Date End Date Teresita Munroe DO [address] [place] [address] PCP - General Family Medicine 07/28/14 documented as of this encounter
--- OUTSIDE RECORDS SUMMARY | 2025-04-01 19:58 | XMS_ITS | Clinical Summary ---
Author Organization [employer] Address [address] [facility] [address] [place] [address] Care Team Providers Care Band Booker Name Role Phone Teresita Munroe DO Primary Care Provider Allergies Active Allergy Reactions [...] the skin every 14 (fourteen) days. Active clopidogrel (Plavix) 75 MG tablet Take 1 tablet by oral route every day Active ezetimibe (Zetia) 10 MG tablet Take 1 tablet by oral route once daily Active QUEtiapine (SEROquel) 100 MG tablet Take 1 tablet by oral route daily Active busPIRone (Buspar) 10 MG tablet Take 1 tablet by oral route twice daily Active sodium chloride (Cache Nasal Grady) 0.65 % nasal sprayIndications :COVID-19 1-2 sprays on each nostril every 2-3 hours as needed for nasal congestion 30 mL 1 09/05/19 23 Active gabapentin (Neurontin) 300 MG capsule 09/30/19 23 Active methotrexate 2.5 MG tablet Take 3 tablets by mouth 1 (one) time per week. 02/08/20 23 Active Diclofenac Sodium 1 % gel Apply 2 g topically if needed in the morning, at noon, in the evening, and at bedtime (pain). 150 g 3 09/24/19 24 Active GNP 8 Hour Arthritis Relief 650 MG ER tabletIndication s:Rheumatoid arthritis, involving unspecified site, unspecified whether rheumatoid factor present ([facility]) ([facility]) TAKE 1 TABLET BY MOUTH EVERY 8 HOURS NEEDED FOR MILD PAIN. DO NOT CURSH, CHEW. OR SPLIT. 60 tablet 05/20/20 Active albuterol (Ventolin HFA) 108 (90 Base) MCG/ACT inhaler Inhale 2 puffs every 4 (four) hours if needed for wheezing. 54 g 07/15/192025 Active Spacer/Aero-Hold ing Chambers (OptiChamber Khushi) misc 1 each every 4 (four) hours if needed (asthma). 1 each 07/15/19 Active Alcohol Swabs (Alcohol Prep) padsIndications: 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 complication, without long-term current use of insulin ([facility]) 1 each 3 times daily. 100 each 07/15/19 Active Misc. Devices (Pulse Oximeter For Finger) misc 1 each 2 times daily. 1 each 07/15/19 Active Lancets 33G misc 1 each 3 times daily. 100 each 07/15/19 Active FREESTYLE LITE test strip Use as instructed 100 each 07/15/19 Active cetirizine (ZyrTEC) 10 MG tablet Take 1 tablet (10 mg) by mouth Once per day. 30 tablet 09/18/192025 Active Ketotifen Fumarate (Alaway) 0.035 % solution Administer 1 drop into affected eye(s) if needed in the morning and at bedtime (eye itching). 10 mL 09/18/19 Active rosuvastatin (Crestor) 40 MG tablet TAKE 1 TABLET BY MOUTH AT BEDTIME. 28 tablet 10/31/19 Active midodrine (Proamatine) 2.5 MG tabletIndication s:Hypotension, unspecified hypotension type TAKE 1 TABLET BY MOUTH TWICE DAILY. 56 tablet 10/31/19 Active montelukast (Singulair) 10 MG tablet TAKE 1 TABLET BY MOUTH IN THE EVENING. 28 tablet 10/31/19 Active fenofibrate (Triglide) 160 MG tablet TAKE 1 TABLET BY MOUTH ONCE DAILY 28 tablet 10/31/19 Active metFORMIN XR (Glucophage-XR) 500 MG 24 hr tabletIndication s: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 complication, unspecified whether fpc insulin use TAKE 1 TABLET BY MOUTH TWICE DAILY WITH MEALS. 56 tablet 3 12/20/19 25 Active mometasone (Nasonex) 50 MCG/ACT nasal spray SPRAY 2 SPRAYS INTO EACH NOSTRIL EVERY DAY. 17 g 01/02/20 25 Active ipratropium-albu terol (Duo-Neb) 0.5-2.5 mg/3 mL nebulizer solutionIndicati ons:Chronic obstructive pulmonary disease, unspecified COPD type (CMS/HCC) ([facility]) INHALE 1 AMPULE USING A NEBULIZER 4 TIMES A DAY IN THE MORNING, AT NOON, IN THE EVENING, AND AT BEDTIME NEEDED FOR WHEEZING OR SHORTNESS OF BREATH 180 mL 3 01/24/20 25 Active Fluticasone-Umec lidin-Vilant (Trelegy Ellipta) 200-62.5-25 MCG/ACT aerosol powder Inhale 1 puff Once per day. 28 each 01/24/20 25 Active benzonatate (Tessalon Perles) 100 MG capsule Take 1 capsule (100 mg) by mouth if needed in the morning, at noon, and at bedtime for cough. Do not crush or chew. 30 capsule 02/11/20 25 2025 Active guaiFENesin (Mucinex) 600 MG 12 hr tablet Take 1 tablet (600 mg) by mouth if needed in the morning and at bedtime for cough or congestion. Do not crush, chew, or split. 30 tablet 02/11/20 25 2025 Active calcium carbonate 1500 (600 Ca) MG tablet Take 1 tablet by mouth Once per day. 02/05/20 25 Active D3-1000 25 MCG (1000 UT) capsule Take 1 capsule by mouth Once per day. 02/05/20 25 Active folic acid (Folvite) 1 MG tablet Take 1 mg by mouth Once per day. 03/05/20 17 Active latanoprost (Xalatan) 0.005 % ophthalmic solution Administer 1 drop into affected eye(s) Once per day. 02/17/20 25 Active predniSONE (Deltasone) 10 MG tablet Take 1 tablet by mouth Once per day. Active traMADol (Ultram) 50 MG tabletIndication s:Chronic pain of both shoulders Take 1 tablet (50 mg) by mouth every 6 (six) hours if needed for severe pain for up to 28 days. Do not start before April 02, 2025. 112 tablet 04/02/20 25 2024 Active amoxicillin (Amoxil) 500 MG capsule Take 1 capsule (500 mg) by mouth every 8 (eight) hours for 7 days. 21 capsule 03/31/20 25 2024 Active acetaminophen (Tylenol) 500 MG tablet Take 1 tablet (500 mg) by mouth every 8 (eight) hours if needed for mild pain for up to 7 days. 21 tablet 03/31/20 25 2024 Active RSV Pre-Fusion F A&B Vac Rcmb (Abrysvo) 120 MCG/0.5ML reconstituted solutionIndicati ons:Encounter for immunization Inject 0.5 mL (120 mcg) into the muscle 1 (one) time for 1 dose. 1 each 03/03/20 25 2024 traMADol (Ultram) 50 MG tabletIndication s:Chronic pain of both shoulders Take 1 tablet (50 mg) by mouth every 6 (six) hours if needed for severe pain for up to 28 days. 112 tablet 03/05/20 25 2024 Discontinued(R eorder (will not trigger notification to Pharmacy)) Active Problems Problem Noted Date Diagnosed Date COPD exacerbation ([facility]) 01/21/2025 Assessment & Plan (01/21/2025 11:50 AM [...] 05/22/2022 Obstructive sleep apnea 05/22/2022 Rheumatoid arthritis (CMS/HCC) 05/22/2022 Assessment & Plan (09/24/2023 3:00 PM [...] Encounters Date Type Department Care Team Description 04/01/2025 Telephone [facility] [address] Teresita Munroe DO Results 03/31/2025 8:30 AM EDT Office Visit [facility] [place] [address] 03/30/2025 Refill [facility] [address] [place], [place] [phone] Teresita Munroe DO Chronic pain of both shoulders 03/10/2025 Telephone [facility] [place] [address] Hailey Marcum, GUICHO 03/05/2025 Refill [facility] [address], [place] [phone] Teresita Munroe DO Chronic pain of both shoulders (Primary Dx) 03/03/2025 9:30 AM EDT Office Visit [facility] [place] [address] Monica Diaz FNP Hospital discharge follow-up (Primary Dx); 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 complication, without long-term current use of insulin ([facility]); Encounter for immunization; COPD exacerbation ([facility]); Moderate asthma with exacerbation, unspecified whether persistent; Emphysema lung ([facility]) 03/03/2025 Travel 02/18/2025 Telephone [facility] [place] [address] Teresita Munroe DO HDF apppointment 02/10/2025 Orders Only GENERIC EXTERNAL DATA DEPARTMENT Provider, Generic External Data 02/09/2025 Refill [facility] [place] [address] Teresita Munroe DO 02/04/2025 Telephone [facility] [place] [address] Teresita Munroe DO Durable Medical Equipment (DME Request: Rolator Walker/Wipes) 01/26/2025 10:30 AM EDT Telemedicine [facility] [address] [place] [id number] Ana Beach, RN Long-term current use of opiate analgesic 01/26/[address] [address] Teresita Munroe DO Prior Authorization (PA: benzonatate (Tessalon Perles) 100 MG capsule ) 01/26/[address] [address] Ana Beach, aeronautical inspector pain of both shoulders (Primary Dx) 01/23/2025 10:00 AM EDT Office Visit [address] [phone] Teresita Munroe DO Type 2 diabetes mellitus [...] counseling; Exercise counseling 01/23/2025 Travel 01/23/2025 Refill [facility] [address] [place] [phone] Chris Emanuel MD Chronic obstructive pulmonary disease, unspecified COPD type (CMS/HCC) 01/21/2025 10:00 AM EDT Office Visit [facility] [address] [place] [phone] Charmaine Rowland MD COPD exacerbation (CMS/HCC) (Primary Dx) 01/21/[address] [address] Teresita Munroe DO Chart Prep 01/21/2025 Travel 01/12/2025 Travel 01/01/2025 10:00 AM EDT Office Visit [facility] [address] [place] [phone] Teresita Munroe DO COPD exacerbation ([facility]) (Primary Dx); Acute URI; Chronic obstructive pulmonary disease, unspecified COPD type ([facility]) 01/01/2025 Travel 12/31/2024 Telephone [facility] [address] [place] [address] Teresita Munroe DO telephone call from Last 3 Months Immunizations Immunization Administration Dates Next Due Hep B, adult 09/28/2016,04/05/2015,03/04/2015 Influenza High-dose Quadriva lent Preservative Free 02/22/2023,04/20/2020 Influenza Injectable Quadriv alant Preservative Free IIV4 MDCK 05/24/2021 Influenza injectable quadriv alent IIV4 with preservative 03/04/2015 Influenza injectable quadriv alent preservative free 06/09/2022 Influenza, High Dose Seasona l, Preservative Free 03/03/2025,03/19/2020,04/08/2019,03/25,02/27/2017,02/15/2016 Influenza, IIV3, injectable 03/17/2014, 1 Influenza, Split [...] Passive Smoke Exposure: Past Smokeless Tobacco: Former Tobacco Cessation:Counseling Given: Not Answered Alcohol Use [...] Sign Reading Time Taken Comments Blood Pressure 130/56 03/03/2025 9:28 AM EDT Pulse 72 03/03/2025 9:28 AM EDT Temperature 37.1 C (98.7 F) 03/03/2025 9:28 AM EDT Respiratory Rate 16 03/03/2025 9:28 AM EDT Oxygen Saturation 98% 03/03/2025 9:28 AM EDT Inhaled Oxygen Concentration - - Weight 66.3 kg (146 lb 2 oz) 03/03/2025 9:28 AM EDT Height 160 cm (5' 3 ) 03/03/2025 9:28 AM EDT Body Mass Index 25.88 03/03/2025 9:28 AM EDT Plan of Treatment Upcoming Encounters Date Type Department Care Team (Late st Contact Info) Description 04/10/2025 9:00 AM EST Telemedicine [facility] [address] [place], [place] [phone] Ana Beach RN 06/02/2025 8:30 AM EST Office Visit [facility] [address] [place] [address] Rasta Torres DDS [address] [place], [place] [phone] Health Maintenance Due Date Last Done Comments CT Colonography 1950 Dental Prophylaxis 1950 Dental X-Ray: Bitewings 1950 FIT DNA/Cologuard 1950 FIT 1950 FOBT 1950 Sigmoidoscopy 1950 Diabetes: Foot Exam 1959 Eye Exam 1959 Hepatitis A Vaccines (1 of 2 - Risk 2-dose series) 1968 Zoster Vaccines (3 of 3) 10/17/2021 08/22/2021, 07/2014 Dental Oral Exam 12/11/2022 06/12/2022 Depression Screening 01/21/2025 01/22/2024, 01/22/20 24 COVID-19 Vaccine ( season) 2025 05/09/2021, 09/09/2020, 08/12/2020, Additional history exists Diabetes: Urine Protein Screening 04/09/2025 04/09/2024, 10/17/2022, 08/22/2021, Additional history exists Dental X-Ray: Full Mouth 06/13/2025 06/12/2022 Diabetes: Hemoglobin A1C 07/26/2025 025, 09/17/2024, 04/09/2024, Additional history exists SDOH Screening 09/08/2025 09/08/2024 Alcohol/Substance Use Screening 09/17/2025 09/17/2024 Colonoscopy 11/10/2025 11/10/2020, 11/03/2014 Colorectal Cancer Screening 11/10/2025 Lipid Panel 12/11/2025 12/11/2024, 11/2023, 10/17/2022, Additional history exists Tobacco Screening 03/03/2026 03/03/2025 DTaP/Tdap/Td Vaccines (3 - Td or Tdap) 09/18/2033 09/19/2023, 12/17/2012, 12/17/2006 Hepatitis B Vaccines Completed 09/28/2016, 04/05/2015, 03/04/2015 Pneumococcal Vaccine: 50+ Years Completed 02/22/2023, 09/28/2016, 04/05/2015, Additional history exists Hepatitis C Screening Completed 12/11/2024, 024 Influenza Vaccine Completed 03/03/2025, , 06/09/2022, Additional history exists RSV Patients and Patients Aged 60 years or older Completed 03/11/2025 HIB Vaccines Aged Out No longer eligi [...] Name Priority Date/Time Associated Diagnosis Comments US ABDOMEN COMPLETE Routine 03/26/2025 9 :36 AM EDT Fatty liver POCT GLUCOSE Routine 03/03/2025 9:30 AM EDT 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 complication, without long-term current use of insulin ([facility]) CTA CHEST PE PROTOCAL Routine 02/10/2025 11:17 AM EDT XR CHEST 2 VIEWS Routine 02/10/2025 10:1 0 AM EDT VENOUS BLOOD GAS Routine 02/10/2025 9:21 AM [...] complication, without long-term current use of insulin ([facility]) POCT GLUCOSE Routine 01/23/2025 10:42 AM EDT [...] Routine 01/01/2025 9:52 AM EDT Acute URI HEPATITIS PANEL, GENERAL Routine 12/11/2024 9:09 AM EDT LIPID PANEL, STANDARD Routine 12/11/2024 9:09 AM EDT ALBUMIN, RANDOM [...] Relevant to Health Maintenance Results * US Abdomen Complete (03/26/2025 9:36 AM EDT) Anatomical Region Laterality Modality Abdomen Ultrasound 03/26/2025 9:36 AM EDT Narrative 03/26/2025 10:56 AM EDT [place] [address] Ultrasound Report Signed Patient: Aspen Mondragon MR#: [id number] : 1950 Acct:[id number] Age/Sex: 74 / F ADM Date: 03/26/25 Loc: HO.US Attending Dr: Teresita Munroe DO Ordering Physician: Teresita Munroe DO Date of Service: 03/26/25 Procedure(s): US abdomen complete Accession Number(s): [id number] cc: Teresita Munroe DO Reason for Exam: f/u fatty liver EXAMINATION: US ABDOMEN COMPLETE CLINICAL INFORMATION: Fatty liver. 4.1 cm abdominal aorta aneurysm... COMPARISON: March 21, 2023 and June 16, 2024. TECHNIQUE: Real-time ultrasound of the abdomen using grayscale and color Doppler technique. FINDINGS: PANCREAS: No peripancreatic fluid collections. ABDOMINAL AORTA: Abdominal aorta diameter is 3.9 cm in the mid segment, 4.3 cm in the mid to distal segment. INFERIOR VENA CAVA: Visualized portions are normal. LIVER: Liver measures 14 cm. Coarse echotexture. No nodular surface. No solid or cystic lesion. No intrahepatic biliary ductal dilatation. GALLBLADDER: Fluid-filled nondistended. No pericholecystic fluid collection or gallbladder wall thickening. COMMON BILE DUCT: 5 mm. RIGHT KIDNEY: 10 cm. Normal echotexture. Normal renal cortical thickness. No hydronephrosis. No solid or cystic lesion.. LEFT KIDNEY: 9 cm. Normal echotexture. Normal renal cortical thickness. No hydronephrosis. No solid or cystic lesion. SPLEEN: 11 cm. No gross solid or cystic lesion. FREE FLUID: None. US/US abdomen complete IMPRESSION: Probable hepatic steatosis versus hepatocellular disease. 4.3 cm aneurysm, abdominal aorta. No hydronephrosis. No cholelithiasis or choledocholithiasis. No ascites. Electronically signed by: Sky Holland MD 03/26/2025 10:53 AM EDT Dictated By: Sky Roger MD Signed By: <Electronically signed by Sky Rowland MD in OV> 03/26/25 1053 DD/ 0936 TD/TT: 03/26/25 0954 Keg Varnisher: Procedure Note Donotuseinterpreter, Image - 03/26/[address] [address] Ultrasound Report Signed Patient: Shirin Mondragon#: [id number] : 9Acct:[id number] Age/Sex: 74 / FADM Date: 03/26/25 Loc: HO.US Attending Dr: Teresita Munroe DO Ordering Physician: Teresita Munroe DO Date of Service: 03/26/25 Procedure(s): US abdomen complete Accession Number(s): [id number] cc: Teresita Munroe DO Reason for Exam: f/u fatty liver EXAMINATION: US ABDOMEN COMPLETE CLINICAL INFORMATION: Fatty liver. 4.1 cm abdominal aorta aneurysm... COMPARISON: March 21, 2023 and June 16, 2024. TECHNIQUE: Real-time ultrasound of the abdomen using grayscale and color Doppler technique. FINDINGS: PANCREAS: No peripancreatic fluid collections. ABDOMINAL AORTA: Abdominal aorta diameter is 3.9 cm in the mid segment, 4.3 cm in the mid to distal segment. INFERIOR VENA CAVA: Visualized portions are normal. LIVER: Liver measures 14 cm. Coarse echotexture. No nodular surface. No solid or cystic lesion. No intrahepatic biliary ductal dilatation. GALLBLADDER: Fluid-filled nondistended. No pericholecystic fluid collection or gallbladder wall thickening. COMMON BILE DUCT: 5 mm. RIGHT KIDNEY: 10 cm. Normal echotexture. Normal renal cortical thickness. No hydronephrosis. No solid or cystic lesion.. LEFT KIDNEY: 9 cm. Normal echotexture. Normal renal cortical thickness. No hydronephrosis. No solid or cystic lesion. SPLEEN: 11 cm. No gross solid or cystic lesion. FREE FLUID: None. US/US abdomen complete IMPRESSION: Probable hepatic steatosis versus hepatocellular disease. 4.3 cm aneurysm, abdominal aorta. No hydronephrosis. No cholelithiasis or choledocholithiasis. No ascites. Electronically signed by: Sky Holland MD 03/26/2025 10:53 AM EDT Dictated By: Sky Roger MD Signed By: <Electronically signed by Sky Rowland MDin OV> 03/26/25 1053 DD/ 0936 TD/TT: 03/26/25 0954 Keg Varnisher: us Teresita Munroe DO IMG US PROCEDURES Edited Res ult - Final * (ABNORMAL) POCT Glucose (03/03/2025 9:30 AM EDT) Only the most recent of2 resultswithin the time period is included. Glucose Blood, POC 222(A) 60 - 200 mg/dL QC Media Lot # [id number] Lot# Expiration Date Blood Capillary blood specimen / Unknown 03/03/2025 9:30 AM EDT Monica Okhipo [employer] POINT OF CARE TEST ENTER/EDIT ORDERABLES Final Result * CTA Chest PE Protocal (02/10/2025 11:17 AM EDT) Anatomical Region Laterality Modality Body, Chest Computed Tomogra phy 02/10/2025 11:1 7 AM EDT Narrative 02/10/2025 11:57 AM EDT [place] [address] CT Scan Report Signed Patient: Aspen Mondragon MR#: [id number] : 1950 Acct:[id number] Age/Sex: 74 / F ADM Date: 02/10/25 Loc: .ED Attending Dr: Ordering Physician: Sharron Hernandez Date of Service: 02/10/25 Procedure(s): CT angio chest PE protocol Accession Number(s): [id number] cc: Teresita Munroe DO; Sharron Hernandez Report Number: [id number]: Total DLP = 321.00 mGy-cm Reason for Exam: hypoxic, tachy, sob, r/o PE EXAMINATION: CT CHEST ANGIOGRAPHY WITH IV CONTRAST INDICATION: hypoxic, tachy, sob, r/o PE COMPARISON: Comparison is made with the prior examination dated 518. TECHNIQUE: Helical CT scan of the chest was performed following administration of intravenous contrast (65 mL Omnipaque 350). The contrast bolus was timed to optimally opacify the pulmonary arteries. Thin sections were obtained through the pulmonary arteries. Coronal and sagittal reformatted images were generated. 3D/MIP reconstructed images are also obtained and reviewed. This CT exam was performed with one or more of the following dose reduction techniques: automated exposure control, adjustment of the mA and/or kV according to patient size, use of iterative reconstruction technique. DLP: 321 mGy-cm CHEST: THYROID: The thyroid gland is unremarkable. PULMONARY ARTERIES: No intraluminal filling defects are identified within the pulmonary arteries to suggest pulmonary emboli. LUNGS: There is mild to moderate emphysema. The lungs are clear. MEDIASTINUM: There is no mediastinal lymphadenopathy. JOVI: There is no hilar lymphadenopathy. CARDIOVASCULATURE: The heart is normal in size. There is no pericardial effusion. The thoracic aorta is normal in caliber. DEGREE OF CORONARY CALCIFICATION: not evaluable, due to dense contrast in the coronary arteries. PLEURA: There is no pleural effusion. No pneumothorax. MAIN AIRWAYS: The mainstem bronchi and proximal branches are patent. AXILLA: There is no axillary lymphadenopathy. UPPER ABDOMEN: The liver and spleen are enlarged. The visualized portions of the adrenals are unremarkable. BONES AND SOFT TISSUES: There is degenerative disc disease of the spine. CT/CT angio chest PE protocol IMPRESSION: 1. No evidence of pulmonary emboli. 2. Mild to moderate emphysema. The lungs are clear. 3. Hepatosplenomegaly. 4. Because mild to moderate emphysema is an independent risk factor for lung cancer, consider entering the patient into a program of yearly lung cancer screening with low dose chest CT. Electronically signed by: Eldon Paulino MD 02/10/2025 11:54 AM EDT Dictated By: Eldon Paulino MD Signed By: <Electronically signed by Eldon Paulino MD in OV> 02/10/25 1154 DD/ 1117 TD/TT: 02/10/25 1140 Keg Varnisher: Procedure Note Donotuseinterpreter, Image - 02/10/[address] [place] [address] [address] Scan Report Signed Patient: Shirin Mondragon#: [id number] : 1950cct:[id number] Age/Sex: 74 / FADM Date: 02/10/25 Loc: HO.ED Attending Dr: Ordering Physician: Sharron Hernandez Date of Service: 02/10/25 Procedure(s): CT angio chest PE protocol Accession Number(s): [id number] cc: Teresita Munroe DO; Sharron Hernandez Report Number: [id number]: Total DLP = 321.00 mGy-cm Reason for Exam: hypoxic, tachy, sob, r/o PE EXAMINATION: CT CHEST ANGIOGRAPHY WITH IV CONTRAST INDICATION: hypoxic, tachy, sob, r/o PE COMPARISON: Comparison is made with the prior examination dated 518. TECHNIQUE: Helical CT scan of the chest was performed following administration of intravenous contrast (65 mL Omnipaque 350). The contrast bolus was timed to optimally opacify the pulmonary arteries. Thin sections were obtained through the pulmonary arteries. Coronal and sagittal reformatted images were generated. 3D/MIP reconstructed images are also obtained and reviewed. This CT exam was performed with one or more of the following dose reduction techniques: automated exposure control, adjustment of the mA and/or kV according to patient size, use of iterative reconstruction technique. DLP: 321 mGy-cm CHEST: THYROID: The thyroid gland is unremarkable. PULMONARY ARTERIES: No intraluminal filling defects are identified within the pulmonary arteries to suggest pulmonary emboli. LUNGS: There is mild to moderate emphysema. The lungs are clear. MEDIASTINUM: There is no mediastinal lymphadenopathy. JOVI: There is no hilar lymphadenopathy. CARDIOVASCULATURE: The heart is normal in size. There is no pericardial effusion. The thoracic aorta is normal in caliber. DEGREE OF CORONARY CALCIFICATION: not evaluable, due to dense contrast in the coronary arteries. PLEURA: There is no pleural effusion. No pneumothorax. MAIN AIRWAYS: The mainstem bronchi and proximal branches are patent. AXILLA: There is no axillary lymphadenopathy. UPPER ABDOMEN: The liver and spleen are enlarged. The visualized portions of the adrenals are unremarkable. BONES AND SOFT TISSUES: There is degenerative disc disease of the spine. CT/CT angio chest PE protocol IMPRESSION: 1. No evidence of pulmonary emboli. 2. Mild to moderate emphysema. The lungs are clear. 3. Hepatosplenomegaly. 4. Because mild to moderate emphysema is an independent risk factor for lung cancer, consider entering the patient into a program of yearly lung cancer screening with low dose chest CT. Electronically signed by: Eldon Paulino MD 02/10/2025 11:54 AM EDT RP Dictated By: Eldon Paulino MD Signed By: <Electronically signed by Eldon Paulino MD in OV> 02/10/25 1154 DD/ 1117 TD/TT: 02/10/25 1140 Keg Varnisher: [facility] External Provider IMG CT PROCEDURES Edited Result - Final * XR Chest 2 Views (02/10/2025 10:10 AM EDT) Only the most recent of2 resultswithin the time period is included. Anatomical Region Laterality Modality Chest Radiographic Dayana ging 02/10/2025 10:1 0 AM EDT Narrative 02/10/2025 10:37 AM EDT [place] [address] XRay Report Signed Patient: Aspen Mondragon MR#: [id number] : 1950 Acct:[id number] Age/Sex: 74 / F ADM Date: 02/10/25 Loc: .ED Attending Dr: Ordering Physician: Ramonita Regan DO Date of Service: 02/10/25 Procedure(s): XR chest 2V Accession Number(s): [id number] cc: Ramonita Regan DO; Teresita Munroe DO Reason for Exam: sob EXAMINATION: XR CHEST CLINICAL INFORMATION: sob COMPARISON: January 21, 2025, September 17, 2024 TECHNIQUE: 2 views of the chest were obtained. FINDINGS: Lungs are clear and well aerated. Coarse interstitial markings are again noted. Heart size is within normal limits. There is no pleural effusion. Total shoulder replacement has been performed on the left. There is sclerosis and subchondral lucency with osteochondral step-off involving the left humeral head. Fracture was visible on the prior. It has been present since at least September 17, 2024 XR/XR chest 2V IMPRESSION: No acute disease. 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 Electronically signed by: Callum Moreno MD 02/10/2025 10:33 AM EDT RP Dictated By: Callum Moreno MD Signed By: <Electronically signed by Callum Moreno MD in OV> 02/10/25 1033 DD/ 1010 TD/TT: 02/10/25 1014 Keg Varnisher: Procedure Note Donotuseinterpreter, Image - 02/10/[address] [address] XRay Report Signed Patient: Aspen MondragonMR#: [id number] : [id number]:[id number] Age/Sex: 74 / FADM Date: 02/10/25 Loc: HO.ED Attending Dr: Ordering Physician: Ramonita Regan DO Date of Service: 02/10/25 Procedure(s): XR chest 2V Accession Number(s): [id number] cc: Ramonita Regan DO; Teresita Munroe DO Reason for Exam: sob EXAMINATION: XR CHEST CLINICAL INFORMATION: sob COMPARISON: January 21, 2025, September 17, 2024 TECHNIQUE: 2 views of the chest were obtained. FINDINGS: Lungs are clear and well aerated. Coarse interstitial markings are again noted. Heart size is within normal limits. There is no pleural effusion. Total shoulder replacement has been performed on the left. There is sclerosis and subchondral lucency with osteochondral step-off involving the left humeral head. Fracture was visible on the prior. It has been present since at least September 17, 2024 XR/XR chest 2V IMPRESSION: No acute disease. 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 Electronically signed by: Callum Moreno MD 02/10/2025 10:33 AM EDT RP Dictated By: Callum Moreno MD Signed By: <Electronically signed by Callum Moreno MD in OV> 02/10/25 1033 DD/ 1010 TD/TT: 02/10/25 1014 Keg Varnisher: [facility] External Provider IMG XR PROCEDURES Edited Result - Final * (ABNORMAL) VENOUS BLOOD GAS (02/10/2025 9:21 AM EDT) VBG pH 7.35 7.32 - 7.43 [facility] Comment:METER #: [id number] additional_comment: Cb kathrynj VBG PCO2 48 mmHg [facility] Comment:METER #: [id number] additional_comment: Cb kathrynj VBG PO2 51 mmHg [facility] Comment:METER #: [id number] additional_comment: Cb delma VBG Base Excess 0.8 mmol/L [facility] Comment:METER #: [id number] additional_comment: Castro nguyễn VBG HCO3 27(H) 22 - 26 mmol/L [facility] Comment:METER #: [id number] additional_comment: Castro nguyễn O2 Sat, Yan 74.0 % [facility] Comment:METER #: [id number] additional_comment: Castro nguyễn 02/10/2025 9:21 AM EDT 02/10/2025 9:29 AM EDT Generic External Data Provider LAB BLOOD ORDERAB LES Final Result [facility] [address] [place] [phone] * Influenza A B2 ID NOW (Sanches) (02/10/2025 9:12 AM EDT) IDNOW SERIAL# [id number] [facility] Influenza A Negative Negative [facility] Influenza B2 Negative Negative [facility] Influenza A B2 Note See Note [facility] Comment:The [place]anches ID NOW In [...] LAB MICROBIOLOGY - GENERAL ORDERABLES Final Result [facility] [address] [place] [phone] * COVID-19 ID NOW (SANCHES) (02/10/2025 9:12 AM EDT) IDNOW SERIAL# [id number] [facility] COVID-19 TEST Negative Negative [facility] COVID-19 NOTE See Note [facility] Comment: Results are for the identification of SARS-CoV2 RNA. TheSARS-CoV2 RNA is generally detectable in respiratory samplesduring the acute phase of infection. Positive results areindicative of the presence of SARS-CoV-2 RNA; clinicalcorrelation with patient history and other diagnosticinformation is necessary to determine patient infectionstatus. Positive results do not rule out bacterial infectionor co- infection with other viruses.Testing facilities within the [facility] and itsterritories are required to report all [...] use by authorized laboratories.Testing performed on the [employer] ID NOW utilizing NAAT. 02/10/2025 9:12 AM EDT 02/10/2025 9:17 AM EDT Generic External Data Provider LAB MOLECULAR JOSE ALEJANDRO GNOSTICS ORDERABLES Final Result Performing Organization Address [facility] de Phone Number [facility] [address] [place] [address] [phone] * High Sensitivity Troponin I (02/10/2025 9:12 AM EDT) [facility] TROPONIN I HIGH SENSITIVITY <2.7 <3.5 - 17.0 ng/L [facility] Comment:The Sanches high sens itivity Troponin-I results should beused in conjunction with other diagnostic information suchas ECG, clinical observations and information, and patientsymptoms to aid in the diagnosis of MO. 02/10/2025 9:12 AM EDT 02/10/2025 9:17 AM EDT Generic External Data Provider LAB BLOOD ORDERAB LES Final Result Performing Organization Address [facility] Phone Number [facility] [address] [place] [phone] * (ABNORMAL) CBC auto differential (02/10/2025 9:12 AM EDT) [facility] White Blood Count 3.8(L) 4.8 - 10.8 X10*3/uL [facility] Red Blood Count 4.50 4.20 - 5.50 X10*6/uL [facility] Hemoglobin 13.7 12.0 - 16.0 g/dl [facility] Hematocrit 42.4 37.0 - 47.0 % [facility] Mean Corpuscular Volume 94.2 80.0 - 98.0 fL [facility] Mean Corpuscular Hemoglobin 30.4 27.0 - 33.0 pg [facility] Mean Corpuscular HGB Conc 32.3 31.0 - 35.0 g/dl [facility] Red Cell Distribution Width 13.2 11.0 - 16.0 % [facility] Platelet Count 193 160 - 400 X10*3/uL [facility] Mean Platelet Volume 9.8 9.4 - 12.3 fL [facility] Neutrophils Percent Auto 46.2 45 - 73 % [facility] Imm Gran Pct Auto 0.5(H) 0.0 - 0.4 % [facility] Lymphocytes Percent Auto 28.4 20 - 40 % [facility] Monocytes Percent Auto 7.7 2 - 11 % [facility] Eosinophils Percent Auto 16.4(H) 0 - 4 % [facility] Basophils Percent Auto 0.8 0 - 2 % [facility] NRBC Pct Auto 0.0 0.0 - 0.2 /100WBC [facility] Neutrophils Absolute Auto 1.7(L) 2.0 - 8.3 x10*3/uL [facility] Imm Gran Abs Auto 0.02 0.00 - 0.03 X10*3/uL [facility] Lymphocytes Absolute Auto 1.1(L) 1.2 - 4.9 X10*3/uL [facility] Monocytes Absolute Auto 0.3 0.1 - 1.2 X10*3/uL [facility] Eosinophils Absolute Auto 0.6(H) 0.0 - 0.4 X10*3/uL [facility] Basophils Absolute Auto 0.0 0.0 - 0.2 X10*3/uL [facility] NRBC Abs Auto 0.000 0.0 - 0.012 X10*3/uL [facility] 02/10/2025 9:12 AM EDT 02/10/2025 9:17 AM EDT us Generic External Data Provider LAB BLOOD ORDERAB LES Final Result [facility] [address] [place] [address] [place] [phone] * Magnesium (02/10/2025 9:12 AM EDT) Magnesium 2.3 1.6 - 2.6 mg/dL [facility] 02/10/2025 9:12 AM EDT 02/10/2025 9:17 AM EDT us Generic External Data Provider LAB BLOOD ORDERAB LES Final Result [facility] [address] [place] [phone] * (ABNORMAL) Comprehensive Metabolic Panel (02/10/2025 9:12 AM EDT) Sodium 145 135 - 145 mmol/L [facility] Potassium 4.0 3.3 - 5.1 mmol/L [facility] Chloride 110(H) 96 - 108 mmol/L [facility] Carbon Dioxide 26 22 - 29 mmol/L [facility] Anion Gap 13 12 - 20 [facility] Urea Nitrogen (BUN) 11 9 - 16 mg/dL [facility] Creatinine, Serum 0.70 0.5 - 1.4 mg/dL [facility] Creatinine Clr Calc Pharmacy 63.0 [facility] Comment:Provided height and weight: 160.02 cm,65.1 kg.eGFR (calculated from the MDRD study equation) and eCrCl(calculated from the Cockcroft-Gault equation) are based ondifferent parameters and may not yield comparable results.If eCrCl result is absurd, please check patient'sheight/weight. Estimated Glomerular Filt Rate >60 [facility] Comment:Chronic Kidney Disea se: Estimated GFR < 60 mL/min/[id number] Kidney Disease: Estimated GFR < 15 mL/min/1.73m2 Glucose 141(H) 60 - 115 mg/dL [facility] Calcium 8.6 8.4 - 10.2 mg/dL [facility] Bilirubin, Total 0.6 0.0 - 1.0 mg/dL [facility] Aspartate Amino Transferase 23 5 - 31 U/L [facility] Alanine Aminotransferase 18 0 - 31 U/L [facility] Total Protein 6.9 6.5 - 8.0 g/dL [facility] Albumin Level 4.0 3.5 - 5.0 g/dL [facility] Alkaline Phosphatase 61 39 - 117 U/L [facility] 02/10/2025 9:12 AM EDT 02/10/2025 9:17 AM EDT Generic External Data Provider LAB BLOOD ORDERAB LES Final Result Performing Organization Address [facility]/ZIP Co de Phone Number [facility] [address] [place] [phone] * (ABNORMAL) POCT HGB A1C (01/23/2025 10:42 AM EDT) Hemoglobin A1C 6.2(A) 4.0 - 5.7 % QC Media Lot # [id number] Lot# Expiration Date 814 Blood 01/23/2025 10:4 2 AM EDT us Teresita Munroe DO POINT OF CARE TEST ENTER/GUME T ORDERABLES Final Result * Influenza B (ID NOW Rapid Molecular) (01/21/2025 10:01 AM EDT) Only the most recent of2 resultswithin the time period is included. Influenza B Negative Negative, Indeterminate [facility] Swab 01/21/2025 10:0 1 AM EDT us Charmaine Salas MD POINT OF CARE TEST EN TER/EDIT ORDERABLES Final Result Performing Organization Address [facility]/ZIP Co de Phone Number [facility] [address] [place] [phone] * Influenza A (ID NOW Rapid Molecular) (01/21/2025 10:01 AM EDT) Only the most recent of2 resultswithin the time period is included. Influenza A Negative Negative, Indeterminate [facility] Swab 01/21/2025 10:0 1 AM EDT Charmaine Salas MD POINT OF CARE TEST EN TER/EDIT ORDERABLES Final Result Performing Organization Address City/[facility] Co de Phone Number [facility] [address] [place] [phone] * POCT Rapid COVID Ag (01/21/2025 10:01 AM EDT) Only the most recent of2 resultswithin the time period is included. Rapid COVID Ag Negative [facility] Swab 01/21/2025 10:0 1 AM EDT us Charmaine Salas MD POINT OF CARE TEST EN TER/EDIT ORDERABLES Final Result Performing Organization Address [facility] Co de Phone Number [facility] [address] [place] [phone] * Hepatitis Panel, General (12/11/2024 9:09 AM EDT) Pathologist [facility] Hepatitis A IgM Nonreactive Nonreactive [facility] Comment:IgM antibodies to GUERRA V not detected; does not exclude earlyacute or recovered HAV infection. ~Hepatitis B Surface Antibody REACTIVE Nonreactive [facility] Comment:REACTIVE: > 11.99 mI U/mL Hepatitis B Core Antibody Nonreactive Nonreactive [facility] Hepatitis C Antibody Nonreactive Nonreactive [facility] Comment:Antibodies to HCV no t detected; does not exclude early acuteHCV infection. Hepatitis B Surface Ag Negative Negative [facility] 12/11/2024 9:09 AM EDT 12/11/2024 9:09 AM EDT Generic External Data Provider LAB BLOOD ORDERAB LES Final Result Performing Organization Address [facility]/ZIP Co de Phone Number [facility] [address] [place] [phone] * (ABNORMAL) Lipid Panel, Standard (12/11/2024 9:09 AM EDT) Triglycerides 301(H) <150 mg/dL [facility] Comment:Desirable Triglyceri de: less than 150 mg/dLBorderline High Triglyceride 150-199 mg/dLHigh Triglyceride: 200-499 mg/dLVery High Triglyceride: greater than or equal to 5OO mg/dL Cholesterol 165 <200 mg/dL [facility] Comment:Desirable Cholestero l: less than 200 mg/dLBorderline High Cholesterol: 200-239 mg/dLHigh Cholesterol: greater than 239 mg/dL LDL Cholesterol Calculated 70 <100 mg/dL [facility] Comment:Desirable LDL: less than 100 mg/dLNear Optimal/Above Optimal LDL: 110- 129 mg/dLBorderline High LDL: 130-159 mg/dLHigh LDL: 160-189 mg/dLVery High LDL: greater than or equal to 190 mg/dL HDL Cholesterol 35(L) >40 mg/dL [facility] Comment:Desirable HDL: great er than 40 mg/dL Note: This HDL assay may give artificially low results in patients with liver disease. 12/11/2024 9:09 AM EDT 12/11/2024 9:09 AM EDT us Generic External Data Provider LAB BLOOD ORDERAB LES Final Result Performing Organization Address City/[facility]/ZIP Co de Phone Number [facility] [address] [place] [phone] * Albumin, Random Urine W/Creatinine (04/09/2024 9:28 AM EST) Creatinine, Urine 128.14 mg/dL [facility] Microalbumin Urine 12.0 mg/L [facility] Microalbum Creatinine Ratio Ur 9.3 <30 ug/mg cr [facility] Comment:Albumin/Creatinine R atio Reference Ranges: Normal: < 30 ug/mg creatinine Microalbuminuria: 30 - 300 ug/mg creatinineClinical Albuminuria: > 300 ug/mg creatinine Urine (Urine, Random) 04/09/2024 9:28 AM EST 04/09/2024 9:40 AM EST us Teresita Munroe DO LAB URINE ORDERABLES Final R esult [facility] [address] [place] [phone] * Hm Colonoscopy (11/10/2020 10:20 AM EDT) us Historical Provider HEALTH MAINTENANCE Final Result from Last 3 Months or Most Recently Relevant to Health Maintenance Insurance [facility] OPTIONS (HMO D-SNP) [place] [id number] DENTAL [facility] Care Teams Band Booker Relationship Specialty Start Date End Date Teresita Munroe DO [address] [place] [address] PCP - General Family Medicine 07/28/14
--- OUTSIDE RECORDS SUMMARY | 2025-04-01 19:58 | XMS_ITS | Encounter Summary ---
Author Organization [employer] Address [address] [facility] [address]t h Floor [place] [phone] Care Team Providers Care Home Planning Consultant Salesperson Name Role Phone Teresita Munroe DO Primary Care Provider Encounter Details Date Type Department Care Team (Late Contact Info) Description 06/15/2022 Abstract [facility] AD[facility] [address] [place] [address] Jelena Morgan DDS [address] [place] [address] Social History Tobacco Use Types Packs/Day Years [...] Info) Description 04/10/2025 9:00 AM EST Telemedicine [facility] [address] [place] [address] Ana Beach RN 06/02/2025 8:30 AM EST Office Visit [facility] [address] [place] [address] Rasta Torres DDS [address] [place], [place] [phone] documented as of this encounter Visit Diagnoses Not on filedocumented in this encounter Care Teams Home Planning Consultant Salesperson Relationship Specialty Start Date End Date Teresita Munroe DO [address] [place] [address] PCP - General Family Medicine 07/28/14 documented as of this encounter
--- OUTSIDE RECORDS SUMMARY | 2025-04-01 19:58 | XMS_ITS | Encounter Summary ---
Author Organization [employer] [facility] Address [address] [facility] 7t [place] [address] Care Team Providers Care Operations Management Trainee Name Role Phone Teresita Munroe DO Primary Care Provider [phone] Encounter Details Date Type Department Care Team (Latest Contact Info) Description 2019 Abstract [facility] CONVERSIONS Dental, Provider, DDS Social [...] Info) Description 04/10/2025 9:00 AM EST Telemedicine [facility] [address] [place] [address] Ana Beach RN 06/02/2025 8:30 AM EST Office Visit [facility] ADULT [facility] [address] [place] [address] Rasta Torres, DDS [address] [place] [address] documented as of this encounter Visit Diagnoses Not on filedocumented in this encounter Care Teams Operations Management Trainee Relationship Specialty Start Date End Date Teresita Munroe DO [address] [place] [address] PCP - General Family Medicine 07/28/14 documented as of this encounter
--- OUTSIDE RECORDS SUMMARY | 2025-04-01 19:58 | XMS_ITS | Encounter Summary ---
Author Organization [employer] Address [address] [facility] 7t [place] [address] Care Team Providers Care Director Of Engineering Name Role Phone Teresita Munroe DO Primary Care Provider [phone] Reason for Visit * Reason Comments Med Refill Encounter Details Date Type Department Care Team ([facility] st Contact Info) Description 01/03/2024 Refill [facility] [address] [place], [place] [phone] Teresita Munroe DO [address] [facility] 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
--- OUTSIDE RECORDS SUMMARY | 2025-04-01 19:58 | XMS_ITS | Encounter Summary ---
Author Organization [employer] Address [address] [facility] 7[address] [place] [address] Care Team Providers Care Bindery Supervisor Name Role Phone Teresita Munroe DO Primary Care Provider [phone] Reason for Visit * Reason Onset Date Comments Med Refill 05/11/2023 Encounter Details Date Type Department Care Team (Late st Contact Info) Description 05/11/2023 Refill [facility] [address] [place] [address] Teresita Munroe DO [address] [place] [address] Chronic pain of both shoulders (Primary Dx) [...] traMADol (Ultram) 50 MG tablet [facility] [address] [place] [address] - [phone] documented in this encounter Plan of Treatment Upcoming Encounters Date Type Department Care Team (Late st Contact Info) Description 04/10/2025 9:00 AM EST Telemedicine [facility] [address] [place] [address] Ana Beach RN 06/02/2025 8:30 AM EST Office Visit [facility] [address] [place] [address] Rasta Torres DDS [address] [place] [address] documented as of this encounter Visit Diagnoses Diagnosis Chronic pain of both shoulders- Primary documented in this encounter Care Teams Bindery Supervisor Relationship Specialty Start Date End Date Teresita Munroe DO [address] [place] [address] PCP - General Family Medicine 07/28/14 documented as of this encounter
--- OUTSIDE RECORDS SUMMARY | 2025-04-01 19:58 | XMS_ITS | Encounter Summary ---
Author Organization [employer] Address [address] [facility] [address]t h Floor [place] [phone] Care Team Providers Care Agriculture Research Director Name Role Phone Teresita Munroe DO Primary Care Provider Encounter Details Date Type Department Care Team (Late Contact Info) Description 08/03/2022 Abstract [facility] ADULT DENTAL [address] [place] [address] Bhanu Barakat DDS [address] [place] [address] Social History Tobacco Use Types Packs/Day Years [...] Telemedicine [facility] [address] [place] [address] Ana Beach RN 06/02/2025 8:30 AM EST Office Visit [facility] [address] [place], [place] [phone] Rasta Torres DDS [address] [place], [place] [phone] documented as of this encounter Visit Diagnoses Not on filedocumented in this encounter Care Teams Agriculture Research Director Relationship Specialty Start Date End Date Teresita Munroe DO [address] [place] [address] PCP - General Family Medicine 07/28/14 documented as of this encounter
== END 2025-04-01 15:50 | disposition home or self-care (01) ==
LOC: HO.CT 15:49
PROVIDERS: PCP Family Medicine; Visit Provider Family Medicine
DX: J44.1 Chronic obstructive pulmonary disease with (acute) exacerbation (principal)
CPT/HCPCS: 71250

== ENCOUNTER → 2025-04-01 15:50 | Outpatient (BNV) | payer OTHER, SELFPAY | PROVIDERS: PCP Family Medicine; Visit Provider Radiology Diagnostic Radiology | DX: J84.9 Interstitial pulmonary disease, unspecified (principal) | CPT/HCPCS: 71250 ==

== ENCOUNTER 2025-04-07 | Outpatient (REF) | payer OTHER, SELFPAY | END 2025-04-07 00:01 | disposition home or self-care (01) | LOC: CF | PROVIDERS: PCP Family Medicine; Visit Provider Student in an Organized Health Care Education/Training Program | DX: J44.1 Chronic obstructive pulmonary disease with (acute) exacerbation (principal); M06.09 Rheumatoid arthritis without rheumatoid factor, multiple sites; M81.0 Age-related osteoporosis without current pathological fracture; M67.911 Unspecified disorder of synovium and tendon, right shoulder; M67.912 Unspecified disorder of synovium and tendon, left shoulder; Z51.81 Encounter for therapeutic drug level monitoring; Z79.620 Long term (current) use of immunosuppressive biologic; Z79.631 Long term (current) use of antimetabolite agent; Z87.891 Personal history of nicotine dependence | CPT/HCPCS: 99212 ==

== ENCOUNTER 2025-04-07 09:42 | Outpatient (AMB) | payer OTHER, SELFPAY ==
--- NOTE | 2025-04-07 09:45 | A.OFFVIS_ITS ---
Vital Signs 04/07/25 09:54 Height 5 ft 3 in Weight 148 lb 5.938 oz BMI 26.3 BP 122/60 Blood Pressure Location Lt brachial Position Sitting Pulse 72 Pulse Source Pulse Oximeter Pulse Oximetry (%) 95 Oxygen Delivery Method Room Air Intake Visit Reasons: follow up Intake Note: Patient presents for RA follow up. Gleason Operator Required: Yes Gleason Operator Language: Truck Driving Instructor Services: Gleason Operator Offered & Declined Gleason Operator Name: Leonora Pratt Information Interpreted: non-clinical & clinical Mainframe Programmer: Mainframe Programmer Present (Leonora Pratt) Accompanied by: REDUCTION FURNACE OPERATOR HELPER Allergies lobster Allergy (Uncoded 02/10/25 08:49) Nausea and Vomiting HPI Comments Details: Patient is a 74-year-old female with hyperlipidemia, diabetes who presents for evaluation of her seronegative erosive rheumatoid arthritis. Interval History: Last seen 10/30/2024 with me. - On methotrexate 7.5mg weekly, folic acid 1mg daily, Actemra 4mg/kg IV - Patient is complaining of bilateral elbow pain and upper arm pain - Hand pain and wrist pain has improved Today - On methotrexate 7.5mg weekly, folic acid 1mg daily, Actemra 4mg/kg IV - Doing well - Elbow pain resolved - C/o bilateral shoulder pain Rheumatologic History: Onset~ 2011?. RAMONA pos at [facility] 1:160 - 06/18 RF,CCP Ab negative.anti DNA, Scl 70,ANGEL SS-A, SS-B all negative Erosive and DJD changes in MCP joints(2015) Hydroxychloroquine started Feb 2015. Methotrexate added 2015. 06/22: sulfasalazine added Hydroxychloroquine stopped 08/21 - retinal edema Patient reported eye exam 09/18, 04/22, 03 January 2022: Methotrexate held in preparation for shoulder surgery. Not restarted so far. Sulfasalazine continued. 2022 methotrexate and sulfasalazine restarted. However both ineffective Humira added 10/2023. Stopped 03/2024 ineffective. Sulfasalazine also stopped Abatacept 03/2024. Insurance denied Enbrel 04/2024 Current Rheumatology Medication(s): Methotrexate 3 tablets weekly folic acid 1 mg daily Tocilizumab infusion 4 mg/kg every 4 weeks [facility] Medical History (Updated 02/19/25 @ 22:35 by Adria Parish MD) Seronegative rheumatoid arthritis of multiple sites Eosinophilia Long-term use of Plaquenil Encounter for methotrexate monitoring Encounter for monitoring tocilizumab therapy Vitamin D deficiency Hypothyroxinemia Osteoarthritis (arthritis due to wear and tear of joints) Chronic venous insufficiency Subclavian artery stenosis Carotid arterial disease AAA (abdominal aortic aneurysm) Diabetes Elevated cholesterol COPD (chronic obstructive pulmonary disease) Asthma PVD (peripheral vascular disease) CAD (coronary artery disease) HTN (hypertension) Surgical History (Updated 02/13/25 @ 00:00 by Henry Skinner) History of arthroplasty of right shoulder Hx of removal of cyst Hx of endoscopy History of colonoscopy Family History Father No problems noted. Mother Family history of high blood pressure Hx of type 1 diabetes mellitus Social History Household Members: None Housing: Apartment Are you a primary healthcare applications analyst to a significant other at home: No Do you presently have visiting nurse or other home services: No Alcohol intake: never Patient Tobacco Use Status: Former Tobacco user Tobacco use type: Cigarette service: No Current occupational status: disabled Current occupation: left hand Review of Systems Narrative Review of Systems Constitutional: Denies fever, chills, weight loss ENT: Denies vision changes, eye pain or eye redness, dental caries, dry mouth GI: Denies nausea, vomiting, diarrhea, abdominal pain, change in BM Pulm: Denies SOB, REID, hemoptysis, wheezing Cards: Denies chest pain, palpitations Skin: Denies Raynaud's, rash, nail changes, photosensitivity, FRYER LINE HELPER: Denies headaches, weakness, paresthesias, recurrent falls MSK: as per HPI All other systems reviewed and are unremarkable except noted above Physical Exam Exam Exam: Vital signs reviewed Physical Examination CONSTITUITIONAL Patient alert and cooperative. Well appearing and in no apparent painful distress MSK Hands * Right Hand: Able to make a fist. No tenderness to palpation of the MCPs, PIPs or DIPs. * Left Hand: Able to make a fist. No tenderness to palpation of the MCPs, PIPs or DIPs. * Reducible ulnar deviation bilaterally at the level of the MCPs * Hands look a bit swollen but there was no obvious tenderness to palpation Wrists * Right Wrist: Full ROM to flexion and extension. No swelling or TTP * Left Wrist: Full ROM to flexion and extension. No swelling or TTP Elbows * Right Elbow: Full ROM. No swelling or TTP. No TTP of the medial epicondyle. No TTP of the lateral epicondyle * Left Elbow: Full ROM. No swelling or TTP. No TTP of the medial epicondyle. No TTP of the lateral epicondyle Shoulders * Right shoulder: No swelling noted. TTP of the AC joint. No TTP of the subacromial bursa. No TTP of the posterior shoulder. Surgical scar noted over anterior shoulder (previous rotator cuff surgery) * Left shoulder: No swelling noted. TTP of the AC joint. No TTP of the subacromial bursa. No TTP of the posterior shoulder * Decreased range of motion bilaterally with positive Bonner Norberto maneuver bilaterally Knees * Right knee: Full ROM. No swelling noted. No TTP of the knee joint line. No TTP of pes anserine bursa * Left knee: Full ROM. No swelling noted. No TTP of the knee joint line. No TTP of pes anserine bursa. * Crepitations felt bilaterally Ankles * Right ankle: Good ankle dorsiflexion and plantar flexion. No swelling. No TTP of the ankle joint * Left ankle: Good ankle dorsiflexion and plantar flexion. No swelling. No TTP of the ankle joint Feet * Right foot: Negative squeeze test * Left foot: Negative squeeze test Tender points? * No tenderness to palpation of the bilateral trapezius, supraspinatus, anterior costochondral junctions, bilateral suboccipital muscle insertions SKIN No rashes Results Reviewed Results Reviewed: Laboratory Tests 04/02/25 09:08 WBC 4.8 RBC 3.98 L Hgb 12.2 Hct 37.7 Plt Count 170 Sodium 145 Potassium 3.9 Chloride 115 H Carbon Dioxide 24 BUN 12 Creatinine 0.69 AST 29 ALT 24 Laboratory Tests 12/11/24 09:09 Hepatitis A IgM Ab Nonreactive Hep Bs Antigen Negative Hep Bs Antibody REACTIVE Hep B Core Total Ab Nonreactive Hepatitis C Ab (EIA) Nonreactive TB Test (T-Spot) Com Negative Assessment & Plan Assessment & Plan (1) Seronegative rheumatoid arthritis of multiple sites: Comment: Onset~ 2011?. RAMONA pos at [facility] 1:160 - 06/18 RF,CCP Ab negative.anti DNA, Scl 70,ANGEL SS-A, SS-B all negative Erosive and DJD changes in MCP joints(2016) Hydroxychloroquine started Feb 2015. Methotrexate added 2015. 06/22: sulfasalazine added Hydroxychloroquine stopped 08/21 - retinal edema Patient reported eye exam 09/18, 04/22, 03 January 2022: Methotrexate held in preparation for shoulder surgery. Not restarted so far. Sulfasalazine continued. 2022 methotrexate and sulfasalazine restarted. However both ineffective Humira added 10/2023. Stopped 03/2024 ineffective. Sulfasalazine also stopped Abatacept denied Enbrel 05/2024 - 07/2024. Ineffective Code(s): M06.09 - Rheumatoid arthritis without rheumatoid factor, multiple sites Category: Medical Plan: #Seronegative RA Patient is a 74-year-old female with seronegative rheumatoid arthritis here today for follow up. Currently in remission with no tender or swollen joints on examination today Plan - Tocilizumab infusions 4mg/kg every 4 weeks - Continue methotrexate and folic acid for now - RTC 5 months - Labs before visit: CBC, CMP, ESR, CRP, lipid panel (2) Osteoporosis: Code(s): M81.0 - Age-related osteoporosis without current pathological fracture Category: Medical Qualifiers: Osteoporosis type: age-related Presence of current pathological fracture: without current pathological fracture Qualified Code(s): M81.0 - Age-related osteoporosis without current pathological fracture Plan: #Osteoporosis Patient with osteoporosis currently being followed by Endocrinology Vit D levels improved (3) Bilateral rotator cuff dysfunction: Code(s): M67.911 - Unspecified disorder of synovium and tendon, right shoulder; M67.912 - Unspecified disorder of synovium and tendon, left shoulder Plan: #Bilateral rotator cuff dysfunction Patient with bilateral shoulder pain consistent on exam with rotator cuff disease. Offered physical therapy however patient has known rotator cuff disease and even had surgery on the right previously. Has exercises at home and would like to continue with that (4) Encounter for monitoring tocilizumab therapy: Code(s): Z51.81 - Encounter for therapeutic drug level monitoring; Z79.620 - aerospace engineer (current) use of immunosuppressive biologic Category: Medical Plan: #Long-term Use of Tocilizumab Discussed the risks and benefits of tocilizumab with the management of this patient's rheumatic condition. ? Benefits include decreased pain, improved mortality, improved quality of life Risks include LFT abnormalities, elevated triglycerides, GI perforations Contraindicated in a patient with history of diverticulitis Monitoring: ?CBC, CMP, triglycerides (5) Encounter for methotrexate monitoring: Code(s): Z51.81 - Encounter for therapeutic drug level monitoring; Z79.631 - shelter (current) use of antimetabolite agent Category: Medical Plan: #Long-term Current Use of Methotrexate Discussed with patient the benefits and risks of methotrexate for managing their rheumatic condition Benefits include reduced pain, reduced mortality, maintenance of remission and reduction of flares Risks include oral ulcers, photosensitivity, hepatotoxicity, hematologic toxicity, pneumonitis, flu-like symptoms (especially day after administration), nodulosis, lymphomas ? Limit alcohol and avoid Bactrim ? Monitoring: ?CBC, BMP, LFTs every 3-4 months and hepatitis serologies as needed Plan I spent 30 minutes reviewing the record and labs, taking a history, examining the patient, discussing the treatment plan and documenting in the medical record Coding Level of Care Code Est Pt Level 4 (06371) Complex EM visit Add On G2211 Diagnoses Seronegative rheumatoid arthritis of multiple sites M06.09 Age-related osteoporosis without current pathological fracture M81.0 Osteoporosis type: age-related Presence of current pathological fracture: without current pathological fracture Bilateral rotator cuff dysfunction M67.911; M67.912 Encounter for monitoring tocilizumab therapy Z51.81; Z79.620 Encounter for methotrexate monitoring Z51.81; Z79.631
[2025-04-07 09:54] VITALS: BP 122/60; PULSE 72; O2SAT 95; BMI 26.3
--- OUTSIDE RECORDS SUMMARY | 2025-04-07 11:00 | XMS_ITS | Clinical Summary ---
Author Organization [facility] Address [address] [address] Phone Care Team Providers Care Air Drill Operator Name Role Phone Teresita Munroe DO [...] topic Medical Devices Not on file Insurance [facility] MEDICARE REPLACEMENT [employer] [id number] , [address] [id number] [facility] [place] [id number] , [address] [place] [id number] [place] [id number] [id number] [place] [address] MEDICARE [place]AC[place] [id number] [place] [address] [place] [address] MEDICARE REPLACEMENT [facility] [employer] MEDICARE REPLACEMENT Care Teams Air Drill Operator Relationship Specialty Start Date End Date Teresita Munroe DO [address] [place] [address] [phone] PCP - General Family Medicine 01/03/22 Additional Source Comments The information contained in this document represents components of the legal health record. It is not the complete legal health record.[facility]
== END 2025-04-07 10:09 | disposition home or self-care (01) ==
LOC: HO.RHES 09:42
PROVIDERS: PCP Family Medicine; Visit Provider Student in an Organized Health Care Education/Training Program
DX: M06.09 Rheumatoid arthritis without rheumatoid factor, multiple sites (principal); M81.0 Age-related osteoporosis without current pathological fracture; M67.911 Unspecified disorder of synovium and tendon, right shoulder; M67.912 Unspecified disorder of synovium and tendon, left shoulder; Z51.81 Encounter for therapeutic drug level monitoring; Z79.620 Long term (current) use of immunosuppressive biologic; Z79.631 Long term (current) use of antimetabolite agent
CPT/HCPCS: 99214; G2211

== ENCOUNTER 2025-04-10 11:30 | Outpatient (AMB) | payer OTHER, SELFPAY ==
--- OUTSIDE RECORDS SUMMARY | 2025-04-10 09:00 | XMS_ITS | Encounter Summary ---
Author Organization [employer] Address [address] [facility] [address] [place] [address] Care Team Providers Care Sed Special Education Teacher Name Role Phone Teresita Munroe DO Primary Care Provider [phone] Reason for Visit * Reason Comments TRAINING AND DEVELOPMENT REP RV Encounter Details Date Type Department Care Team ([facility] Contact Info) Description 04/10/2025 9:00 AM EST Telemedicine [facility] MEDICINE [address] [place] [address] Ana Beach RN Long-term current use of opiate analgesic Social History Tobacco Use Types Packs/Day Years [...] past 12 months, has t he electric, [employer], oil or water [employer] threatened to shut off services in your [...] AM EDT documented as of this encounter Progress Notes * Ana Beach RN - 04/10/2025 9:00 AM EST SUBJECTIVE: Aspen Farah is a 74 y.o. year old female who is called for TRAINING AND DEVELOPMENT REP RV Preferred language for medical information: New Zealander Interpreted needed: Yes Systems Accountant service utilized: [employer] Accountant name: [employer] Accountant I.D #: [id number] Aspen Farah does report adherence to Tramadol (Ultram) 50 mg, take 1 tablet every 6 hours PRN, last refilled 04/02/2025. Pt states she only uses 3 doses a day. The patient last took Tramadol (Ultram) on: 04/10/2025 Medication is: 50% % effective at alleviating pain. Pt stated she went to hospital 2 weeks ago because her oxygen saturations were low. Today she c/o cold symptoms, runny nose, congestion, denies fever. OBJECTIVE: SWITCH INSPECTOR checked: 04/10/2025 Pill count completed for Tramadol (Ultram), patient reports count today is 90 , anticipated count should be 79, this is as expected. Vital Signs Pain Score: 9 Pain Loc: Shoulder Pain Education: Yes Additional pain site: both shoulders arms, legs, all her bones Last PCP visit: 01/23/2025 Controlled substance agreement signed: Controlled Substance Agreement 01/26/2025 TRAINING AND DEVELOPMENT REP Tele Tier: 2 Current Medications[1] Smoking status: Denies ETOH use: Denies Illicit substances: Denies Marijuana use: No ASSESSMENT: Encounter Diagnosis Name Primary? Long-term current use of opiate analgesic PLAN: Information on pain group given: Previously discussed Information on acupuncture given: Previously discussed Narcan education provided: Previously discussed Narcan prescription: active Advised patient she can be evaluated in [facility] for her cold symptoms if she wants, pt declined at thistime. Aspen Farah will continue taking medication as prescribed and follow up at the next Tele TRAINING AND DEVELOPMENT REP visit or sooner if needed. Aspen Farah has verbalized understanding of care plan. Future Appointments Date Time Provider Department Center 06/02/2025 8:30 AM Rasta Torres DDS ADLT DENT [facility] 07/17/2025 9:00 AM Ana Beach, RN MEDICINE [facility] Ana Beach, RN [1] Current Outpatient Medications: traMADol (Ultram) 50 MG tablet, Take 1 tablet (50 mg) by mouth every 6 (six) hours if needed for severe pain for up to 28 days. Do not start before April 02, 2025., Disp: 112 tablet, Rfl: 0 albuterol (Ventolin HFA) 108 [...] bedtime for cough. Do not crush or chew., Disp: 30 capsule, Rfl: 0 busPIRone (Buspar) 10 MG tablet, Take 1 tablet by oral route twice daily, Disp: , Rfl: calcium carbonate 1500 (600 Ca) MG tablet, Take 1 tablet by mouth Once per day., Disp: , Rfl: cetirizine (ZyrTEC) 10 MG tablet, Take 1 tablet (10 mg) by mouth Once per day., Disp: 30 tablet, Rfl: 11 clopidogrel (Plavix) 75 MG tablet, Take 1 tablet by oral route every day, Disp: , Rfl: D3-1000 25 MCG (1000 UT) capsule, Take 1 capsule by mouth Once per day., Disp: , Rfl: Diclofenac Sodium 1 % [...] , Rfl: fenofibrate (Triglide) 160 MG tablet, TAKE 1 TABLET BY MOUTH ONCE DAILY, Disp: 28 tablet, Rfl: 5 Gaawulvpwrs-Welhrdxcn-Wnebyo (Trelegy Ellipta) 200-62.5-25 MCG/ACT aerosol powder , Inhale 1 puff Once per day., Disp: 28 each, Rfl: 11 folic acid (Folvite) 1 MG tablet, Take 1 mg by mouth Once per day., Disp: , Rfl: FREESTYLE LITE test strip, Use as instructed, Disp: 100 each, Rfl: 5 gabapentin (Neurontin) 300 MG capsule, , Disp: , Rfl: GNP 8 Hour Arthritis Relief 650 MG ER tablet, TAKE 1 TABLET BY MOUTH EVERY 8 HOURS NEEDED FOR MILD PAIN. DO NOT CURSH, CHEW. OR SPLIT., Disp: 60 tablet, Rfl: 0 guaiFENesin (Mucinex) 600 MG 12 hr tablet, Take 1 tablet (600 mg) by mouth if needed in the morningand at bedtime for cough or congestion. Do not crush, chew, or split., Disp: 30 tablet, Rfl: 0 ipratropium-albuterol (Duo-Neb) 0.5-2.5 mg/3 mL nebulizer solution, INHALE 1 AMPULE USING A NEBULIZER 4 TIMES A DAY IN THE MORNING, AT NOON, IN THE EVENING, AND AT BEDTIME NEEDED FOR WHEEZING OR SHORTNESS OF BREATH, Disp: 180 mL, Rfl: 3 Ketotifen Fumarate (Alaway) 0.035 % solution, Administer 1 drop into affected eye(s) if needed in the morning and at bedtime (eye itching)., Disp: 10 mL, Rfl: 3 Lancets 33G misc, 1 each 3 times daily., Disp: 100 each, Rfl: 5 latanoprost (Xalatan) 0.005 % ophthalmic solution, Administer 1 drop into affected eye(s) Once per day., Disp: , Rfl: metFORMIN XR (Glucophage-XR) 500 MG 24 hr tablet, TAKE 1 TABLET BY MOUTH TWICE DAILY WITH MEALS., Disp: 56 tablet, Rfl: 3 methotrexate 2.5 MG tablet, Take 3 tablets by mouth 1 (one) time per week., Disp: , Rfl: midodrine (Proamatine) 2.5 MG tablet, TAKE 1 TABLET BY MOUTH TWICE DAILY., Disp: 56 tablet, Rfl: 5 Misc. Devices (Pulse Oximeter For Finger) misc, 1 each 2 times daily., Disp: 1 each, Rfl: 0 mometasone (Nasonex) 50 MCG/ACT nasal spray, SPRAY 2 SPRAYS INTO EACH NOSTRIL EVERY DAY., Disp: 17 g, Rfl: 11 montelukast (Singulair) 10 MG tablet, TAKE 1 TABLET BY MOUTH IN THE EVENING., Disp: 28 tablet, Rfl:5 predniSONE (Deltasone) 10 MG tablet, Take 1 tablet by mouth Once per day., Disp: , Rfl: QUEtiapine (SEROquel) 100 MG tablet, Take 1 tablet by oral route daily, Disp: , Rfl: rosuvastatin (Crestor) 40 MG tablet, TAKE 1 TABLET BY MOUTH AT BEDTIME., Disp: 28 tablet, Rfl: 5 sodium chloride ([place] Nasal [place]) 0.65 % nasal spray, 1-2 sprays on each nostril every 2-3 hours as needed for nasal congestion, Disp: 30 mL, Rfl: 1 Spacer/Aero-Holding Chambers (OptiChamber Khushi) misc, 1 each every 4 (four) hours if needed (asthma)., Disp: 1 each, Rfl: 0 documented in this encounter Plan of Treatment Upcoming Encounters Date Type Department Care Team (Late st Contact Info) Description 06/02/2025 8:30 AM EST Office Visit [facility] ADULT DENTAL [address] [place] [address] Rasta Torres DDS [address] [place] [address] 07/17/2025 9:00 AM EST Telemedicine [facility] MEDICINE [address] [place] [address] Ana Beach, GUICHO documented as of this encounter Visit Diagnoses Diagnosis Long-term current use of opiate analgesic Encounter for long-term (current) use of other medications documented in this encounter Additional Health Concerns Assessment Noted Time PHQ-9 Depression Total Score: 5 01/22/20 24 9:55 AM EDT documented as of this encounter Care Teams Sed Special Education Teacher Relationship Specialty Start Date End Date Teresita Munroe DO [address] [place] [address] PCP - General Family Medicine 07/28/14 documented as of this encounter
[2025-04-10 11:32] VITALS: BP 114/72; PULSE 60; O2SAT 95; BMI 26.2
--- NOTE | 2025-04-10 11:32 | A.OFFVIS_ITS ---
Vital Signs 04/10/25 11:32 Height 5 ft 3 in Weight 147 lb 11.355 oz BMI 26.2 BP 114/72 Blood Pressure Location Rt brachial Position Sitting Pulse 60 Pulse Source Pulse Oximeter Pulse Oximetry (%) 95 Oxygen Delivery Method Room Air Intake Visit Reasons: f/u osteoporosis Intake Note: Patient presents today for follow-up on osteoporosis. Patient last see DR Marisela Ayon MD. Patient reports completing the ordered laboratory tests as instructed. No new complaints or concerns reported at this time. Riding Coach Required: Yes Riding Coach Language: Credit Assessment Analyst Services: Riding Coach Offered & Declined (DR Nunez Speak Fluent Kiswahili) Riding Coach Name: Yarelis Information Interpreted: non-clinical & clinical Accompanied by: Daughter Allergies lobster Allergy (Uncoded 02/10/25 08:49) Nausea and Vomiting Medication List - Last Reconciled 04/10/25 by Rosita Ludwig MD acetaminophen ER 650 mg PO TID albuterol sulfate 90 mcg/actuation (Ventolin HFA) 2 puffs inhalation Q4-6H PRN aspirin 81 mg PO DAILY buspirone 1 tab PO BID calcium carbonate (Calcium 600) 600 mg PO DAILY cetirizine 10 mg PO DAILY cholecalciferol (vitamin D3) 50 mcg (2 x 25 mcg (1,000 unit)) PO DAILY 3 months clopidogrel 75 mg PO DAILY denosumab (Prolia) 60 mg subcut [id number] diclofenac sodium 1% 1 ea topical QID docusate sodium 100 mg PO BID PRN doxycycline monohydrate 100 mg PO Q12H duloxetine 60 mg PO BID evolocumab (Repatha SureNeoick) 140 mg subcut Q2W fenofibrate 160 mg PO DAILY fexofenadine 180 mg PO DAILY iotmxiqbwug-gheskkwcx-slfqyvbx 200-62.5-25 mcg (Trelegy Ellipta) 1 ea inhalation DAILY folic acid 1 mg PO DAILY gabapentin 300 mg PO DAILY ipratropium-albuterol 0.5 mg-3 mg(2.5 mg base)/3 mL 3 mL inhalation QID PRN lidocaine 5% 1 patch topical DAILY metformin ER 500 mg PO BID methotrexate sodium 7.5 mg PO MO midodrine 1 tab PO BID montelukast 10 mg PO DAILY prednisone 10 mg orally; 5 tabs p.o. daily x3 days; 4 tabs p.o. daily x3 days; 3 tabs daily x3 days; 2 tabs daily x3 days; 1 tab daily x3 days prednisone 10 mg PO DAILY 30 days quetiapine 1 tab PO BEDTIME rosuvastatin 40 mg PO DAILY sodium chloride 0.65% (Deep Sea Nasal) 1 - 2 sprays intranasal Q2-3H PRN tramadol 1 tab PO TID PRN HPI Comments Details: 73-year-old female coming in today for follow up of osteoporosis. Patient last seen by Dr. Ayon on . This is my first time seen this patient. Most recent bone density scan done in February 2024 showed T-score of -2.8 at the lumbar spine with increase of 2.9% in her bone density compared to 2020. T- score of-2.5 at the femoral neck and T-score of -2.3 at the total hip with decrease of 3/0.7% bone density at the hip. Bone density from October 2020 showed T-score of-3 at the lumbar spine with decrease of 1.6% in bone density compared to 2013. T-score of -2 at the femoral neck and-2 in the total hip with increase of 11.6% in BMD compared to 2013. Post menopausal osteoporosis: Diagnosed in 2013 Was seeing an endo at [facility] 6-7 years ago , Fosamax from [id number]. Fracture History: none Height loss: 5' 4 curerrenlty , no loss Back pain: none Pharmacotherapeutic hx: Fosamax from [id number] Drug holiday from 2020 up until now Family history: mother had osteoporosis, no parent fractures hip Estrogen use: no HRT use Pregnancies: 4 alive births Menstrual hx: menopause 5o years, menarche 11-12 years , regular periods Secondary risk factors: Steroid use: has required many short courses of prednisone for RA and asthma. last course last week for an RA flare. Has had steroid injections twice 3 years ago. Also on fluticasone Hyperthyroidism: Neg Seizure medication use: None Chemo or Radiation use: Neg Heparin Use: Neg History of eating disorder: Negative intermodal dispatcher immobilization: Negative History of kidney stones or disease: negative PI Use: has history of gastritis , used to take PPI before, no acid reflux now Chronic inflammatory lung disease: Negative Chronic inflammatory bowel disease: Negative Daily calcium intake: drinks 3 cups of milk daily, yogurt twice a day, cheese twice a day also takes 600 mg of calcium BID Vitamin D intake: 1000 units daily Exercise:walks sometimes no fixed schedule, not much, like groceries Smoking history:quit smoking 12 years ago Dental: Has regular dental cleaning, no issues Labs from 04/09/2024 showed normal kidney function with GFR greater than 60, calcium of 9.8 with albumin of 4.1, phosphorus normal at 3.3, magnesium normal at 2.3. Bone specific alkaline phosphatase 16.1, CTX 400. Vitamin-D low at 19.8. PTH mildly elevated at 80.8. 24 hour urine calcium levels on the lower side at 68 mg for 24 hours. 04/14/2024: Vitamin-D was increased from 2000 units daily in supplements to 2500 units daily.plus 800 units in calcium supplement daily. HOWEVER IT IS VERY UNCLEAR HOW MUCH SHE IS TAKING BECAUSE HER MEDICATIONS COME IN A BOX AND I HAD SENT THE VITAMIN-D TO [facility] BUT THEY ARE TELLING ME THE PHARMACIES [facility] I AM NOT REALLY SURE IF SHE WAS GETTING THE EXTRA VITAMIN-D OR NOT. Labs from 07/07/2024: Showed calcium of 9.5 with albumin of 4, normal kidney function, vitamin-D still low at 12.7, PTH at 80.3. We put her on vitamin-D 99502 units weekly for 3 months and she completed the course in September 2024. Interval history She started Prolia on 12/31/24 Taking Vit D 1000IU daily and Calcium 600mg daily No fall or fractures No dietary changes. Reports good tolerance to Prolia No recent steroid use or PPI Patient reports that she will have multiple dental extraccions in Physical exam General: Well appearing. NAD. Neck/Thyroid: Thyroid not palpable, no nodules. CV: RRR, no murmur. No edema. Resp:Lungs clear to auscultation bilaterally Abdomen: Soft, nontender. nondistended Extremities/Neuro: No weakness or tremor of outstretched hands. No pain to palpation of spine. Labs 10/16/2024 Vitamin-D 36 Calcium 9.4 Albumin 4.0 Phosphorus 2.9 Ionized calcium 5.2 Creatinine 0.68 EGFR 91 PTH 29 Laboratory Tests 04/09/24 04/09/24 08:00 09:31 Sodium 143 Potassium 3.9 Creatinine 0.72 Estimated GFR > 60 Calcium 9.8 Phosphorus 3.3 Magnesium 2.3 Alk Phos Bone Specific 16.1 Total Protein 7.8 Total Protein (PEP) 7.2 Albumin 4.1 Albumin (PEP) 3.9 Snhjx-3-Fvnhoprbr 0.2 Lyole-7-Cmgserzsf 0.8 Cmjx-0-Heczovdv 0.4 Xwjg-2-Nkkxdumn 0.5 Gamma Globulins 1.4 Collgn I C-Telopeptide 400 25-OH Vitamin D Total 19.8 L TSH 1.20 Free T4 0.72 Free T4 (Dialysis) 0.7 L Thyroxine (T4) 6.1 Total T3 113 Thyroglobulin 15.4 T4-Binding Globulin 29.1 PTH Intact 80.8 H Urine Total Volume 950 Ur 24 Hour Volume 950 Ur Creatinine mg/dL 73.97 Ur Creatinine 24 Hour 0.72 Ur Calcium 24 Hr 68 Calcium/Creat 24 Hr 97 Ur Free Cortisol 24 Hr 4.9 Laboratory Tests 02/22/23 04/05/23 11/02/23 10:56 09:36 08:26 Creatinine 0.77 Estimated GFR > 60 Calcium 9.8 Alkaline Phosphatase 94 Albumin 4.0 1,25 Dihydroxy Vit D 53 1,25 Dihydroxy Vit D2 <8 1,25 Dihydroxy Vit D3 53 TSH 1.46 2.37 Free T4 0.71 0.64 L Laboratory Tests 07/07/24 07/07/24 13:29 13:33 Sodium 141 Potassium 4.0 Creatinine 0.72 Estimated GFR > 60 Calcium 9.5 Albumin 4.0 25-OH Vitamin D Total 12.7 L PTH Intact 80.3 H Bone density 02/13/24 BONE DENSITOMETRY CLINICAL INDICATION: Osteoporosis. COMPARISON: Previous BD dated 10/21/2020 and baseline BD dated 04/08/2010. TECHNIQUE: Using a Eniram DXA System (software version: 13.1) manufactured by [employer], dual-energy x-ray absorptiometry was performed of the lumbar spine and left hip. The images are of good technical quality. Summary results are attached. FINDINGS: LEFT FEMUR, NECK: Current: BMD 0.695 g/cm2, Z-score -0.8, T-score -2.5, osteoporosis. Prior: BMD 0.757 g/cm2. Baseline: BMD 0.619 g/cm2. LEFT FEMUR, TOTAL: Current: BMD 0.722 g/cm2, Z-score -0.8, T-score -2.3, osteopenia, 3.7% decrease from previous, 10.1% increase from baseline (<5% change is not significant). Prior: BMD 0.750 g/cm2. Baseline: BMD 0.656 g/cm2. AP SPINE L1-L4: Current: BMD 0.843 g/cm2, Z-score -1.4, T-score -2.8, osteoporosis, 2.9% increase from previous, 3.7% decrease from baseline (<5% change is not significant). Prior: BMD 0.819 g/cm2. Baseline: BMD 0.813 g/cm2. IDENTIFIED RISK FACTORS: Menopause, rheumatoid arthritis. HISTORY OF FRACTURE: None listed. MEDICATIONS: Calcium supplements or multivitamin, vitamin D. MM/XR DEXA axial skeleton IMPRESSION: 1. DIAGNOSIS: Osteoporosis based on the lowest T-score value of -2.8 in the lumbar spine applying World Health Organization criteria. 2. 10-YEAR FRACTURE RISK PREDICTION, FRAX: According to the guidelines, FRAX calculation should only be performed on patients in the osteopenia bone density category. Therefore, FRAX was not performed on this patient. BONE DENSITOMETRY 2020 CLINICAL INDICATION: Screening for osteoporosis. COMPARISON: Previous BD dated 12/25/2013 and baseline BD dated 04/08/2010. TECHNIQUE: Using a Eniram DXA System (software version: 13.1) manufactured by [employer], dual-energy x-ray absorptiometry was performed of the lumbar spine and left hip. The images are of good technical quality. Summary results are attached. FINDINGS: AP SPINE L1-L4: Current: BMD 0.819 g/cm2, Z-score -1.6, T-score -3.0, osteoporosis, 1.6% increase from previous, 0.7% increase from baseline (<5% change is not significant). Prior: BMD 0.832 g/cm2. Baseline: BMD 0.813 g/cm2. LEFT FEMUR, NECK: Current: BMD 0.757 g/cm2, Z-score -0.5, T-score -2.0, osteopenia. Prior: BMD 0.646 g/cm2. Baseline: BMD 0.619 g/cm2. LEFT FEMUR, TOTAL: Current: BMD 0.750 g/cm2, Z-score -0.7, T-score -2.0, osteopenia, 11.6% increase from previous, 14.3% increase from baseline (<5% change is not significant). Prior: BMD 0.672 g/cm2. Baseline: BMD 0.656 g/cm2. IDENTIFIED RISK FACTORS: Menopause. HISTORY OF FRACTURE: None listed. MEDICATIONS: Calcium supplements or multivitamin, vitamin D. MM/XR DEXA axial skeleton IMPRESSION: 1. DIAGNOSIS: Osteoporosis based on the lowest T-score value of -3.0 in the lumbar spine applying World Health Organization criteria. 2. 10-YEAR FRACTURE RISK PREDICTION, FRAX: Major osteoporotic fracture (clinical spine, forearm, hip or shoulder) 6.9%. Hip fracture 1.4%. [facility], LAT[facility] Medical History Seronegative rheumatoid arthritis of multiple sites Eosinophilia Long-term use of Plaquenil Encounter for methotrexate monitoring Encounter for monitoring tocilizumab therapy Vitamin D deficiency Hypothyroxinemia Osteoarthritis (arthritis due to wear and tear of joints) Chronic venous insufficiency Subclavian artery stenosis Carotid arterial disease AAA (abdominal aortic aneurysm) Diabetes Elevated cholesterol COPD (chronic obstructive pulmonary disease) Asthma PVD (peripheral vascular disease) CAD (coronary artery disease) HTN (hypertension) Surgical History History of arthroplasty of right shoulder Hx of removal of cyst Hx of endoscopy History of colonoscopy Family History Father No problems noted. Mother Family history of high blood pressure Hx of type 1 diabetes mellitus Social History Household Members: None Housing: Apartment Are you a primary home health care respiratory therapist to a significant other at home: No Do you presently have visiting nurse or other home services: No Alcohol intake: never Patient Tobacco Use Status: Former Tobacco user Tobacco use type: Cigarette service: No Current occupational status: disabled Current occupation: left hand Physical Exam Vital Signs: Last Vital Signs Pulse 60 04/10/25 11:32 BP 114/72 04/10/25 11:32 Pulse Ox 95 04/10/25 11:32 Oxygen Delivery Method Room Air 04/10/25 11:32 BMI result Body Mass Index 26.2 Assessment & Plan Assessment & Plan (1) Osteoporosis: Code(s): M81.0 - Age-related osteoporosis without current pathological fracture Category: Medical Qualifiers: Osteoporosis type: age-related Presence of current pathological fracture: without current pathological fracture Qualified Code(s): M81.0 - Age- related osteoporosis without current pathological fracture Plan: Patient with a history of osteoporosis diagnosed in , who was on alendronate from 6384-9938. This would make sense given that she had significant improvement in her bone density at the hip from 4332-4568 with an 11.6% increase in bone density at the hip. Her most recent bone density scan from February 2024 shows that she is still osteoporotic with osteoporosis at the lumbar spine with a T-score of -2.8 with a 2.9% increase in bone density of the lumbar spine compared to 202. Her lowest T-scores are around-3.4, - 3.5 and L2 and L4 respectively. Plus she even has some arthritis when I reviewed the images myself likely falsely elevating her bone density at the spine. Her bone density at the hip has decreased by 3.7% compared to 2020 and she is still osteoporotic with T-score of -2.5 at the femoral neck, T-score is -2.3 at the total hip. Her risk factors for osteoporosis are age, being postmenopausal, steroid use, rheumatoid arthritis, family history of osteoporosis, petite physique. Patient had Prolia on 12/31/24, she is due for next Prolia dose on . If she is to have multiple dental implants, we recommend holding Prolia until healing and clearance by Oral surgeon that performed the extractions; as patient will be at higher risk for osteonecrosis of the jaw. At the same time, We do not recommend holding Prolia for a more than a few months after the procedure due to the risk of worsening BMD and increased risk of fractures. There is not clear guideline in this regard, but given the need for multiple dental extractions, 6 six months wait period seems reasonable. Patient is aware of common side effects of Prolia include muscle and joint aches and pains, low calcium level which may happen if calcium and vitamin D intake is inadequate. So please need to take calcium and vitamin D regularly. Other side effects may include skin rash, skin or bladder infection. Very rare side effects include osteonecrosis of the jaw and femur fractures. She is supposed to let us know if she experiences any side effects with Prolia. Plan: Hold Prolia, if multiple dental extractions performed in June, otherwise continue as scheduled every six-month. 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 Continue Calcium 600mg daily Advised to increase Vit D to 2000 IU daily Advised about lighting, vision and hearing health to avoid falls Encouraged weight-bearing exercise with walking at least 25 to 30 minutes daily, as tolerated Follow-up in 6 months Plan I spent 30 minutes in reviewing the record, seeing the patient and documenting in the medical record. Medications: Changed From cholecalciferol (vitamin D3) 25 mcg PO DAILY 3 months 90 caps 2RF To cholecalciferol (vitamin D3) 50 mcg (2 x 25 mcg (1,000 unit)) PO DAILY 180 caps 3RF 3 months Patient Instructions: Patient had Prolia on 12/31/24, she is due for next Prolia dose on . If she is to have multiple dental implants, we recommend holding Prolia until healing and clearance by Oral surgeon that performed the extractions; as patient will be at higher risk for osteonecrosis of the jaw. At the same time, We do not recommend holding Prolia for a more than a few months after the procedure due to the risk of worsening BMD and increased risk of fractures. Coding Level of Care Code Est Pt Level 4 (41618) Diagnoses Age-related osteoporosis without current pathological fracture M81.0 Osteoporosis type: age-related Presence of current pathological fracture: without current pathological fracture
--- OUTSIDE RECORDS SUMMARY | 2025-04-10 13:55 | XMS_ITS | Encounter Summary ---
Author Organization [employer] Address [address] [facility] 7t h Floor [place] [id number] Care Team Providers Care Auto Mechanics Instructor Name Role Phone Teresita Munroe DO Primary Care Provider [phone] Encounter Details Date Type Department Care Team (Late Contact Info) Description 08/03/2022 Abstract [facility] ADULT DENTAL [address] [place] [address] Bhanu Barakat DDS [address] [place] [address] Social History Tobacco Use Types Packs/Day Years [...] Department Care Team (Late Contact Info) Description 06/02/2025 8:30 AM EST Office Visit [facility] ADULT DENTAL [address] [place] [address] Rasta Torres DDS [address] [place] [address] 07/17/2025 9:00 AM EST Telemedicine [facility] MEDICINE [address] [place] [address] Ana Beach RN documented as of this encounter Visit Diagnoses Not on filedocumented in this encounter Care Teams Auto Mechanics Instructor Relationship Specialty Start Date End Date Teresita Munroe DO [address] [place] [address] PCP - General Family Medicine 07/28/14 documented as of this encounter
--- OUTSIDE RECORDS SUMMARY | 2025-04-10 13:55 | XMS_ITS | Encounter Summary ---
Author Organization [employer] Address [address] [facility] [address]t [place] [address] Care Team Providers Care Tiger Machine Operator Name Role Phone Teresita Munroe DO Primary Care Provider Encounter Details Date Type Department Care Team (Late Contact Info) Description 06/15/2022 Abstract [facility] ADULT DENTAL [address] [place] [address] Jelena Morgan DDS [address] [place] [address] Social History Tobacco Use Types Packs/Day Years [...] Description 06/02/2025 8:30 AM EST Office Visit [facility] ADULT DENTAL [address] [place] [address] Ratsa Torres DDS [address] [place] [address] 07/17/2025 9:00 AM EST Telemedicine [facility] MEDICINE [address] [place], [place] [phone] Ana Beach RN documented as of this encounter Visit Diagnoses Not on filedocumented in this encounter Care Teams Tiger Machine Operator Relationship Specialty Start Date End Date Teresita Munroe DO [address] [place] [address] PCP - General Family Medicine 07/28/14 documented as of this encounter
--- OUTSIDE RECORDS SUMMARY | 2025-04-10 13:56 | XMS_ITS | Encounter Summary ---
Author Organization [employer] Address [address] [facility] 7t [place] [address] Care Team Providers Care Supervisor Central Supply Name Role Phone Teresita Munroe DO Primary Care Provider [phone] Reason for Visit * Reason Comments Med Refill Encounter Details Date Type Department Care Team ([facility] st Contact Info) Description 04/09/2025 Refill [facility] MEDICINE [address] [place] [address] Teresita Munroe DO [address] [place] [address] Hypotension, unspecified hypotension type; 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 complications (HCC) Social History Tobacco Use Types Packs/Day Years [...] Description 06/02/2025 8:30 AM EST Office Visit [facility] ADULT DENTAL [address] [place] [address] Rasta Torres DDS [address] [place] [address] 07/17/2025 9:00 AM EST Telemedicine [facility] MED[facility]INE [address] [place] [address] Ana Beach, GUICHO documented as of this encounter Visit Diagnoses Diagnosis Hypotension, unspecified hypotension type 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 complications (HCC) documented in this encounter Additional Health Concerns Assessment Noted Time PHQ-9 Depression Total Score: 5 01/22/20 9:55 AM EDT documented as of this encounter Care Teams Supervisor Central Supply Relationship Specialty Start Date End Date Teresita Munroe DO [address] [place] [id number] PCP - General Family Medicine 07/28/14 documented as of this encounter
--- OUTSIDE RECORDS SUMMARY | 2025-04-10 13:56 | XMS_ITS | Encounter Summary ---
Author Organization [employer] Address [address] [facility] 7t [place] [address] Care Team Providers Care Salesman/Owner Name Role Phone Teresita Munroe DO Primary Care Provider [phone] Encounter Details Date Type Department Care Team ([facility] st Contact Info) Description 09/14/2023 Orders Only [facility] MEDICINE [address] [place] [address] ProviderFlor MD Social History Tobacco Use Types [...] Description 06/02/2025 8:30 AM EST Office Visit [facility] ADULT DENTAL [address] [place] [address] Rasta Torres, DANIELS [address] [place] [address] 07/17/2025 9:00 AM EST Telemedicine [facility] MEDICINE [address] [place], [place] [phone] Ana Beach RN documented as of this [...] on filedocumented in this encounter Care Teams Salesman/Owner Relationship Specialty Start Date End Date Teresita Munroe DO [address] [place] [address] PCP - General Family Medicine 07/28/14 documented as of this encounter
--- OUTSIDE RECORDS SUMMARY | 2025-04-10 13:56 | XMS_ITS | Clinical Summary ---
Author Organization [facility] Address [address] [address] Phone Care Team Providers Care Machine Tender Name Role Phone Teresita Munroe DO Primary Care Provider [phone] Social History Tobacco Use Types Packs/Day Years [...] patient's age to complete this topic IPV VACCINES Aged Out No longer eligi ble based on patient's age to complete this topic MENINGOCOCCAL VACCINES (ACWY) Aged Out No longer eligible based on patient's age to complete this topic MENINGOCOCCAL VACCINES (B) Aged Out N o longer eligible based on patient's age to complete this topic Medical Devices Not on file Insurance [facility] MEDICARE REPLACEMENT [place] [id number] , [address] [address] [facility] MEDICARE RE[place]EMENT [place] [address] [place] [address] [place] [address] MEDICARE REPLACEMENT [facility] MEDICARE REPLACEMENT , [address] MEDICARE REPLACEMENT , [address] MED[address] REPLACEMENT , [address] [phone] [facility] MEDICARE REPLACEMENT [facility] MEDICARE REPLACEMENT Care Teams Machine Tender Relationship Specialty Start Date End Date Teresita Munroe DO [address] [place] [phone] PCP - General Family Medicine 01/03/22 Additional Source Comments The information contained in this document represents components of the legal health record. It is not the complete legal health record.[facility]
--- OUTSIDE RECORDS SUMMARY | 2025-04-10 13:56 | XMS_ITS | Encounter Summary ---
Author Organization [employer] Address [address] [facility] 7t [place] [address] Care Team Providers Care Sales Merchandiser Name Role Phone Teresita Munroe DO Primary Care Provider [phone] Encounter Details Date Type Department Care Team (Latest Contact Info) Description 04/10/2025 Travel Social History Tobacco Use Types Packs/Day [...] Description 06/02/2025 8:30 AM EST Office Visit [facility] ADULT DENTAL [address] [place] [address] Rasta Torres DDS [address] [place] [address] 07/17/2025 9:00 AM EST Telemedicine [facility] MEDICINE [address] [place] [address] Ana Beach RN documented as of this encounter Visit Diagnoses Not on filedocumented in this encounter Additional Health Concerns Assessment Noted Time PHQ-9 Depression Total Score: 5 01/22/20 24 9:55 AM EDT documented as of this encounter Care Teams Sales Merchandiser Relationship Specialty Start Date End Date Teresita Munroe DO [address] [place] [address] PCP - General Family Medicine 07/28/14 documented as of this encounter
--- OUTSIDE RECORDS SUMMARY | 2025-04-10 13:56 | XMS_ITS | Encounter Summary ---
Author Organization [email or web address] [facility] Address [address] [place] [address] Care Team Providers Care Crew Leader Name Role Phone Teresita Munroe DO Primary Care Provider Encounter Details Date Type Department Care Team (Latest Contact Info) Description 12/22/2021 Abstract [facility] CONVERSIONS Dental, Provider, DDS Social History [...] 06/02/2025 8:30 AM EST Office Visit [facility] ADULT DENTAL [address] [place] [address] Rasta Torres DDS [address] [place] [address] 07/17/2025 9:00 AM EST Telemedicine [facility] MEDICINE [address] [place] [address] Ana Beach RN documented as of this encounter Visit Diagnoses Not on filedocumented in this encounter Care Teams Crew Leader Relationship Specialty Start Date End Date Teresita Munroe DO [address] [place] [address] PCP - General Family Medicine 07/28/14 documented as of this encounter
--- OUTSIDE RECORDS SUMMARY | 2025-04-10 13:56 | XMS_ITS | Encounter Summary ---
Author Organization [employer] Address [address] [place] [address] Care Team Providers Care Gas Mask Assembler Name Role Phone Teresita Munroe DO Primary Care Provider [phone] Reason for Visit * Reason Onset Date Comments Med Refill 05/11/2023 Encounter Details Date Type Department Care Team (Late st Contact Info) Description 05/11/2023 Refill [facility] [address] [place] [address] Teresita Munroe DO [address] [place] [address] Chronic pain of both shoulders (Primary Dx) [...] traMADol (Ultram) 50 MG tablet [facility] [address] [place] [address] - [address] documented in this encounter Plan of Treatment Upcoming Encounters Date Type Department Care Team (Late st Contact Info) Description 06/02/2025 8:30 AM EST Office Visit [facility] [address] [place] [address] Rasta Torres DDS [address] [place] [address] 07/17/2025 9:00 AM EST Telemedicine [facility] [address] [place] [address] Ana Beach RN documented as of this encounter Visit Diagnoses Diagnosis Chronic pain of both shoulders- Primary documented in this encounter Care Teams Gas Mask Assembler Relationship Specialty Start Date End Date Teresita Munroe DO [address] [place] [address] PCP - General Family Medicine 07/28/14 documented as of this encounter
--- OUTSIDE RECORDS SUMMARY | 2025-04-10 13:56 | XMS_ITS | Clinical Summary ---
Author Organization [employer] Address [address] [place] [address] Care Team Providers Care Buggy Ladle Tender Name Role Phone Teresita Munroe DO [...] oral route twice daily Active sodium chloride ([place] Nasal [place]) 0.65 % nasal sprayIndicatio ns:COVID-19 1-2 sprays [...] site, unspecified whether rheumatoid factor present (CMS/[facility]ER[facility]) ([facility]ER[facility]) TAKE 1 TABLET BY MOUTH EVERY 8 HOURS NEEDED FOR MILD PAIN. DO NOT CURSH, CHEW. OR SPLIT. 60 tablet 05/20/20 Active albuterol (Ventolin HFA) 108 (90 Base) MCG/ACT inhaler Inhale 2 puffs every 4 (four) hours if needed for wheezing. 54 g 07/15/19 25 026 Active Spacer/Aero-Ho lding Chambers (OptiChamber Khushi) misc 1 each every 4 (four) hours if needed (asthma). 1 each 07/15/19 25 Active Alcohol Swabs (Alcohol Prep) padsIndication s: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 complication, without long-term current use of insulin ([facility]) 1 each 3 times daily. 100 [...] mouth Once per day. 30 tablet 09/18/19 026 Active Ketotifen Fumarate (Alaway) 0.035 % solution Administer 1 drop into affected eye(s) if needed in the morning and at bedtime (eye itching). 10 mL 09/18/19 Active rosuvastatin (Crestor) 40 MG tablet TAKE 1 TABLET BY MOUTH AT BEDTIME. 28 tablet 10/31/19 25 Active midodrine (Proamatine) 2.5 MG tabletIndicati ons:Hypotensio n, unspecified hypotension type TAKE 1 TABLET BY MOUTH TWICE DAILY. 56 tablet 10/31/19 Active montelukast (Singulair) 10 MG tablet TAKE 1 TABLET BY MOUTH IN THE EVENING. 28 tablet 10/31/19 Active fenofibrate (Triglide) 160 MG tablet TAKE 1 TABLET BY MOUTH ONCE DAILY 28 tablet 10/31/19 25 Active metFORMIN XR (Glucophage-XR ) 500 MG 24 hr tabletIndicati ons: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 complication, unspecified whether long term care pharmacist insulin use TAKE 1 TABLET BY MOUTH TWICE DAILY WITH MEALS. 56 tablet 3 12/20/19 25 Active mometasone (Nasonex) 50 MCG/ACT nasal spray SPRAY 2 SPRAYS INTO EACH NOSTRIL EVERY DAY. 17 g 11 01/02/20 25 Active ipratropium-al buterol (Duo-Neb) 0.5-2.5 mg/3 mL nebulizer solutionIndica tions:Chronic obstructive pulmonary disease, unspecified COPD type (CMS/HCC) ([facility]) INHALE 1 AMPULE USING A NEBULIZER 4 TIMES A DAY IN THE MORNING, AT NOON, IN THE EVENING, AND AT BEDTIME NEEDED FOR WHEEZING OR SHORTNESS OF BREATH 180 mL 3 01/24/20 25 Active Fluticasone-Um eclidin-Vilant (Trelegy Ellipta) 200-62.5-25 MCG/ACT aerosol powder Inhale 1 puff Once per day. 28 each 01/24/20 25 Active benzonatate (Tessalon Perles) 100 MG capsule Take 1 capsule (100 mg) by mouth if needed in the morning, at noon, and at bedtime for cough. Do not crush or chew. 30 capsule 02/11/20 25 026 Active guaiFENesin (Mucinex) 600 MG 12 hr tablet Take 1 tablet (600 mg) by mouth if needed in the morning and at bedtime for cough or congestion. Do not crush, chew, or split. 30 tablet 02/11/20 25 026 Active calcium carbonate 1500 (600 Ca) MG [...] per day. Active traMADol (Ultram) 50 MG tabletIndicati ons:Chronic pain of both shoulders Take 1 tablet (50 mg) by mouth every 6 (six) hours if needed for severe pain for up to 28 days. Do not start before April 02, 2025. 112 tablet 04/02/20 025 Active traMADol (Ultram) 50 MG tabletIndicati ons:Chronic pain of both shoulders Take 1 tablet (50 mg) by mouth every 6 (six) hours if needed for severe pain for up to 28 days. 112 tablet 03/05/20 025 Discontinued(Re order (will not trigger notification to Pharmacy)) amoxicillin (Amoxil) 500 MG capsule Take 1 capsule (500 mg) by mouth every 8 (eight) hours for 7 days. 21 capsule 03/31/20 025 acetaminophen (Tylenol) 500 MG tablet Take 1 tablet (500 mg) by mouth every 8 (eight) hours if needed for mild pain for up to 7 days. 21 tablet 03/31/20 025 Active Problems Problem Noted Date Diagnosed Date COPD exacerbation ([facility]) 01/21/2025 Assessment & Plan (01/21/2025 11:50 AM [...] Encounters Date Type Department Care Team Description 04/10/2025 9:00 AM EST Telemedicine [facility] [address] [place] [address] Ana Beach, RN Long-term current use of opiate analgesic 04/10/2025 Travel 04/09/2025 Refill [facility] [address] [place] [address] Teresita Munroe DO Hypotension, unspecified hypotension type; 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 complications (HCC) 04/01/[address] [address] Teresita Munroe DO Results 03/31/2025 8:30 AM EDT Office Visit [facility] [address] [place] [address] Rasta Torres DDS 03/30/2025 Refill [facility] [address] [place] [address] Teresita Munroe DO Chronic pain of both shoulders 03/10/[address] [address] Hailey Marcum, GUICHO 03/05/2025 Refill [facility] [address] [place] [address] Teresita Munroe DO Chronic pain of both shoulders (Primary Dx) 03/03/2025 9:30 AM EDT Office Visit [address] [address] Monica Diaz FNP Hospital discharge follow-up (Primary Dx); 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 complication, without long-term current use of insulin (CMS/[facility]); Encounter for immunization; COPD exacerbation (CMS/HCC); Moderate asthma with exacerbation, unspecified whether persistent; Emphysema lung (CMS/HCC) 03/03/2025 Travel 02/18/[address] [address] Teresita Munroe DO HDF apppointment 02/10/2025 Orders Only GENERIC EXTERNAL DATA DEPARTMENT Provider, Generic External Data 02/09/[address] [address] Teresita Munroe DO 02/04/[address] [address] Teresita Munroe DO Durable Medical Equipment (DME Request: Rolator Walker/Wipes) 01/26/2025 10:30 AM EDT Telemedicine [address] [address] Ana Beach, RN Long-term current use of opiate analgesic 01/26/[address] [address] Teresita Munroe DO Prior Authorization (PA: benzonatate (Tessalon Perles) 100 MG capsule ) 01/26/[address] [address] Ana Beach, manager credit collections pain of both shoulders (Primary Dx) 01/23/2025 10:00 AM EDT Office Visit [address] [address] Teresita Munroe DO Type 2 diabetes mellitus [...] counseling; Exercise counseling 01/23/2025 Travel 01/23/2025 Refill [facility] [address] [place] [phone] Chris Emanuel MD Chronic obstructive pulmonary disease, unspecified COPD type (CMS/HCC) 01/21/2025 10:00 AM EDT [facility] [address] [address] Charmaine Rowland MD COPD exacerbation (CMS/HCC) (Primary Dx) 01/21/[address] [address] LudwigTeresita, Chart Prep 01/21/2025 Travel 01/12/2025 Travel from Last 3 Months Immunizations Immunization Administration [...] housing situation today? I have poly wilson 01/08/[address] you li [...] Description 06/02/2025 8:30 AM EST Office Visit [facility] [address] [place] [address] Rasta Torres DDS [address] [place] [address] 07/17/2025 9:00 AM EST Telemedicine [facility] [address] [place] [address] Ana Beach, RN Health Maintenance Due Date [...] Mouth 06/13/2025 06/12/2022 Diabetes: Hemoglobin A1C 07/26/2025 08/2 025, 09/17/2024, 04/09/2024, Additional history exists SDOH [...] Procedure Name Priority Date/Time Associated Diagnosis Comments CT CHEST WO CONTRAST Routine 04/01/2025 10:55 PM EDT COPD exacerbation (CMS/HCC) (HCC) CASE PRESENTATION, DETAILED AND EXTENSIVE TREATMENT PLANNING Routine 03/31/2025 8:30 AM EDT INTRAORAL - PERIAPICAL EACH ADDITIONAL RADIOGRAPHIC IMAGE Routine 03/31/2025 8:30 AM EDT INTRAORAL - PERIAPICAL FIRST RADIOGRAPHIC IMAGE Routine 03/31/2025 8:30 AM EDT 24,25 PALLIATIVE (EMERGENCY) TREATMENT OF DENTAL PAIN - MINOR PROCEDURE Routine 03/31/2025 8:30 AM EDT US ABDOMEN COMPLETE Routine 03/26/2025 9 :36 AM EDT Fatty liver POCT GLUCOSE Routine 03/03/2025 9:30 AM EDT 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 complication, without long-term current use of insulin (CMS/HCC) CTA CHEST PE PROTOCAL Routine 02/10/2025 11:17 [...] use of insulin (CMS/HCC) POCT GLUCOSE Routine 01/23/2025 10:42 AM EDT [...] 01/21/2025 9:48 AM EDT COPD exacerbation (CMS/HCC) HEPATITIS PANEL, GENERAL Routine 12/11/2024 9:09 AM [...] Recently Relevant to Health Maintenance Results * CT Chest w/o Contrast (04/01/2025 10:55 PM EDT) Anatomical Region Laterality Modality Body, Chest Computed Tomogra phy 04/01/2025 10:5 5 PM EDT Narrative 04/01/2025 10:57 PM EDT [place] [address] [address] Scan Report Signed Patient: Aspen Mondragon MR#: [id number] : 1950 Acct:[id number] Age/Sex: 74 / F ADM Date: 04/01/25 Loc: HO.CT Attending Dr: Teresita Munroe DO Ordering Physician: Teresita Munroe DO Date of Service: 04/01/25 Procedure(s): CT chest wo IV con Accession Number(s): [id number] cc: Teresita Munroe DO Report Number: [id number]: Total DLP = 117.00 mGy-cm Reason for Exam: interstitial lung changes on CXR for eval CLINICAL HISTORY: interstitial lung changes on CXR for eval CT chest without contrast Comparison: 02/10/2025 Findings: Emphysema without acute infiltrates. No significant mediastinal adenopathy. No significant free pleural fluid. No significant focal bony abnormalities. Impression: No acute processes This document has been electronically signed by: Jona Belcher MD on 04/01/2025 22:55:11 Dictated By: Jona Belcher MD Signed By: <Electronically signed by Jona Belcher MD in OV> 04/01/252255 DD/ 54 TD/TT: 04/01/252254 Network Manager: Procedure Note Donotuseinterpreter, Image - 04/01/[address] [place] [address] [address] Scan Report Signed Patient: Aspen Mondragon#: [id number] : 9Acct:[id number] Age/Sex: 74 / FADM Date: 04/01/25 Loc: HO.CT Attending Dr: Teresita Munroe DO Ordering Physician: Teresita Munroe DO Date of Service: 04/01/25 Procedure(s): CT chest wo IV con Accession Number(s): [id number] cc: Teresita Munroe DO Report Number: [id number]: Total DLP = 117.00 mGy-cm Reason for Exam: interstitial lung changes on CXR for eval CLINICAL HISTORY: interstitial lung changes on CXR for eval CT chest without contrast Comparison: 02/10/2025 Findings: Emphysema without acute infiltrates. No significant mediastinal adenopathy. No significant free pleural fluid. No significant focal bony abnormalities. Impression: No acute processes This document has been electronically signed by: Jona Belcher MD on 04/01/2025 22:55:11 Dictated By: Jona Belcher MD Signed By: <Electronically signed by Jona Belcher MD in OV> 04/01/252255 DD/ 54 TD/TT: 04/01/25 2255 Network Manager: us Teresita Munroe DO IMG CT PROCEDURES Edited Res ult - Final * US Abdomen Complete (03/26/2025 9:36 AM EDT) Anatomical Region Laterality Modality Abdomen Ultrasound 03/26/2025 9:36 AM EDT Narrative 03/26/2025 10:56 AM EDT [place] [address] Ultrasound Report Signed Patient: Aspen Mondragon MR#: [id number] : 1950 Acct:[id number] Age/Sex: 74 / F ADM Date: 03/26/25 Loc: HO.US Attending Dr: Teresita Munroe DO Ordering Physician: Teresita Munroe DO Date of Service: 03/26/25 Procedure(s): US abdomen complete Accession Number(s): [id number] cc: Teresita Munroe DO Reason for Exam: [...] 03/26/25 1053 DD/ 0936 TD/TT: 03/26/25 0954 Network Manager: Procedure Note Donotuseinterpreter, Image - 03/26/2025 [place] [address] Ultrasound Report Signed Patient: Shirin Mondragon#: [id number] : 9Acct:[id number] Age/Sex: 74 / FADM Date: 03/26/25 Loc: HO.US Attending Dr: Teresita Munroe DO Ordering Physician: Teresita Munroe DO Date of Service: 03/26/25 Procedure(s): US abdomen complete Accession Number(s): [id number] cc: Teresita Munroe DO Reason for Exam: [...] Sky Rowland MDin OV> 03/26/25 1053 DD/ TD/TT: 03/26/25953 Network Manager: us Teresita Munroe DO IMG US PROCEDURES Edited Res ult - Final * (ABNORMAL) POCT Glucose (03/03/2025 9:30 AM EDT) Only the most recent of2 resultswithin the time period is included. Glucose Blood, POC 222(A) 60 - 200 mg/dL QC Media Lot # [id number] Lot# Expiration Date 3, Blood Capillary blood specimen / Unknown 03/03/2025 9:30 AM EDT us Monica VENEGASP POINT OF CARE TEST ENTER/EDIT ORDERABLES Final Result * CTA Chest PE Protocal (02/10/2025 11:17 AM EDT) Anatomical Region Laterality Modality Body, Chest Computed Tomogra phy 02/10/2025 11:1 7 AM EDT Narrative 02/10/2025 11:57 AM EDT [address] [address] [address] Scan Report Signed Patient: Aspen Mondragon MR#: [id number] : 1950 Acct:[id number] Age/Sex: 74 / F ADM Date: 02/10/25 Loc: HO.ED Attending Dr: Ordering Physician: Sharron Hernandez Date of Service: 02/10/25 Procedure(s): CT angio chest PE protocol Accession Number(s): [id number] cc: Kamille Munroenifer Eva BEAVERS; Sharron Hernandez Report Number: [id number]: Total DLP = 321.00 mGy-cm Reason for [...] 02/10/25 1154 DD/ 1117 TD/TT: 02/10/25 1140 Network Manager: Procedure Note Donotuseinterpreter, Image - 02/10/[address] [address] [address] Scan Report Signed Patient: Shirin Mondragon#: [id number] : 1950cct:[id number] Age/Sex: 74 / FADM Date: 02/10/25 Loc: .ED Attending Dr: Ordering Physician: Sharron Hernandez Date of Service: 02/10/25 Procedure(s): CT angio chest PE protocol Accession Number(s): [id number] cc: Teresita Munroe DO; Sharron Hernandez Report Number: [id number]: Total DLP = 321.00 mGy-cm Reason for [...] 02/10/25 1154 DD/ 1117 TD/TT: 02/10/25 1140 Network Manager: [facility] External Provider IMG CT PROCEDURES Edited Result - Final * XR Chest 2 Views (02/10/2025 10:10 AM EDT) Only the most recent of2 resultswithin the time period is included. Anatomical Region Laterality Modality Chest Radiographic Dayana ging 02/10/2025 10:1 0 AM EDT Narrative 02/10/2025 10:37 AM EDT [address] [place] [address] XRay Report Signed Patient: Aspen Mondragon MR#: [id number] : 1950 Acct:[id number] Age/Sex: 74 / F ADM Date: 02/10/25 Loc: HO.ED Attending Dr: Ordering Physician: Ramonita Regan DO Date of Service: 02/10/25 Procedure(s): XR chest 2V Accession Number(s): [id number] cc: Ramonita Regan DO; Teresita Munroe DO [...] Callum Moreno MD 02/10/2025 10:33 AM EDT Dictated By: Callum Moreno MD Signed By: <Electronically signed by Callum Moreno MD in OV> 02/10/25 1033 DD/ 1010 TD/TT: 02/10/25 1014 Network Manager: Procedure Note Donotuseinterpreter, Image - 02/10/[address] [address] XRay Report Signed Patient: Aspen MondragonMR#: [id number] : 1950cct:[id number] Age/Sex: 74 / FADM Date: 02/10/25 Loc: .ED Attending Dr: Ordering Physician: Ramonita Regan DO Date of Service: 02/10/25 Procedure(s): XR chest 2V Accession Number(s): [id number] cc: Ramonita Regan ; Teresita Munroe DO Reason for Exam: sob [...] Callum Moreno MD 02/10/2025 10:33 AM EDT Dictated By: Callum Moreno MD Signed By: <Electronically signed by Callum Moreno MD in OV> 02/10/25 1033 DD/ 1010 TD/TT: 02/10/25 1014 Network Manager: [facility] External Provider IMG XR PROCEDURES Edited Result - Final * (ABNORMAL) VENOUS BLOOD GAS (02/10/2025 9:21 AM EDT) VBG pH 7.35 7.32 - 7.43 [facility] Comment:METER #: [id number] additional_comment: Cb kathrynj VBG PCO2 48 mmHg [facility] Comment:METER #: [id number] additional_comment: Cb tanvirenj VBG PO2 51 mmHg [facility] Comment:METER #: [id number] additional_comment: Cb tanvirenj VBG Base Excess 0.8 mmol/L [facility] Comment:METER #: [id number] additional_comment: Cb tanvirenj VBG HCO3 27(H) 22 - 26 mmol/L [facility] Comment:METER #: [id number] additional_comment: Castro nguyễn O2 Sat, Yan 74.0 % [facility] Comment:METER #: [id number] additional_comment: Castro nguyễn 02/10/2025 9:21 AM EDT 02/10/2025 9:29 AM EDT us Generic External Data Provider LAB BLOOD ORDERAB LES Final Result Performing Organization Address [facility] Co de Phone Number [facility] [address] [place] [address] [phone] * Influenza A B2 ID NOW ([place]) (02/10/2025 9:12 AM EDT) IDNOW SERIAL# [id number] [facility] Influenza A Negative Negative [facility] Influenza B2 Negative Negative [facility] Influenza A B2 Note See Note [facility] Comment:The [place] ID NOW In [...] GENERAL ORDERABLES Final Result Performing Organization Address [facility] Co de Phone Number [facility] [address] [place] [phone] * COVID-19 ID NOW ([place]) (02/10/2025 9:12 AM EDT) IDNOW SERIAL# [id number] [facility] COVID-19 TEST Negative Negative [facility] COVID-19 NOTE See Note [facility] Comment: Results are for the identification of SARS-CoV2 RNA. TheSARS-CoV2 RNA is generally detectable in respiratory samplesduring the acute phase of infection. Positive results areindicative of the presence of SARS-CoV-2 RNA; clinicalcorrelation with patient history and other diagnosticinformation is necessary to determine patient infectionstatus. Positive results do not rule out bacterial infectionor co- infection with other viruses.Testing facilities within the [facility] and [facility] are required to report all positive results [...] use by authorized laboratories.Testing performed on the [employer] ID NOW utilizing NAAT. 02/10/2025 9:12 AM EDT 02/10/2025 9:17 AM EDT us Generic External Data Provider LAB MOLECULAR JOSE ALEJANDRO GNOSTICS ORDERABLES Final Result [facility] [address] [place] [phone] * High Sensitivity Troponin I (02/10/2025 9:12 AM EDT) TROPONIN I HIGH SENSITIVITY <2.7 <3.5 - 17.0 ng/L [facility] Comment:The [place] high sens itivity Troponin-I results should beused in conjunction with other diagnostic information suchas ECG, clinical observations and information, and patientsymptoms to aid in the diagnosis of [place]. 02/10/2025 9:12 AM EDT 02/10/2025 9:17 AM EDT us Generic External Data Provider LAB BLOOD ORDERAB LES Final Result [facility] [address] [place] [address] [phone] * (ABNORMAL) CBC auto differential (02/10/2025 9:12 AM EDT) White Blood Count 3.8(L) 4.8 - 10.8 X10*3/uL [facility] Red Blood Count 4.50 4.20 - 5.50 X10*6/uL [facility] Hemoglobin 13.7 12.0 - 16.0 g/dl [facility] Hematocrit 42.4 37.0 - 47.0 % [facility] Mean Corpuscular Volume 94.2 80.0 - 98.0 fL [facility] Mean Corpuscular Hemoglobin 30.4 27.0 - 33.0 pg [facility] Mean Corpuscular HGB Conc 32.3 31.0 - 35.0 g/dl [facility] Red Cell Distribution Width 13.2 11.0 - 16.0 % [facility] Platelet Count 193 160 - 400 X10*3/uL [facility] Mean Platelet Volume 9.8 9.4 - 12.3 fL [facility] Neutrophils Percent Auto 46.2 45 - 73 % [facility] Imm Gran Pct Auto 0.5(H) 0.0 - 0.4 % [facility] Lymphocytes Percent Auto 28.4 20 - 40 % [facility] Monocytes Percent Auto 7.7 2 - 11 % [facility] Eosinophils Percent Auto 16.4(H) 0 - 4 % [facility] Basophils Percent Auto 0.8 0 - 2 % [facility] NRBC Pct Auto 0.0 0.0 - 0.2 /100WBC [facility] Neutrophils Absolute Auto 1.7(L) 2.0 - 8.3 x10*3/uL [facility] Imm Gran Abs Auto 0.02 0.00 - 0.03 X10*3/uL [facility] Lymphocytes Absolute Auto 1.1(L) 1.2 - 4.9 X10*3/uL [facility] Monocytes Absolute Auto 0.3 0.1 - 1.2 X10*3/uL [facility] Eosinophils Absolute Auto 0.6(H) 0.0 - 0.4 X10*3/uL [facility] Basophils Absolute Auto 0.0 0.0 - 0.2 X10*3/uL [facility] NRBC Abs Auto 0.000 0.0 - 0.012 X10*3/uL [facility] 02/10/2025 9:12 AM EDT 02/10/2025 9:17 AM EDT us Generic External Data Provider LAB BLOOD ORDERAB LES Final Result Performing Organization Address [facility]/ZIP Co de Phone Number [facility] [address] [place] [phone] * Magnesium (02/10/2025 9:12 AM EDT) Pathologist [facility] Magnesium 2.3 1.6 - 2.6 mg/dL [facility] 02/10/2025 9:12 AM EDT 02/10/2025 9:17 AM EDT us Generic External Data Provider LAB BLOOD ORDERAB LES Final Result Performing Organization Address [facility] Co de Phone Number [facility] [address] [place] [phone] * (ABNORMAL) Comprehensive Metabolic Panel (02/10/2025 9:12 AM EDT) Sodium 145 135 - 145 mmol/L [facility] Potassium 4.0 3.3 - 5.1 mmol/L [facility] Chloride 110(H) 96 - 108 mmol/L [facility] Carbon Dioxide 26 22 - 29 mmol/L [facility] Anion Gap 13 12 - 20 [facility] Urea Nitrogen (BUN) 11 9 - 16 mg/dL [facility] Creatinine, Serum 0.70 0.5 - 1.4 mg/dL [facility] Creatinine Clr Calc Pharmacy 63.0 [facility] Comment:Provided height and weight: 160.02 cm,65.1 kg.eGFR (calculated from the MDRD study equation) and eCrCl(calculated from the Cockcroft-Gault equation) are based ondifferent parameters and may not yield comparable results.If eCrCl result is absurd, please check patient'sheight/weight. Estimated Glomerular Filt Rate >60 [facility] Comment:Chronic Kidney Disea se: Estimated GFR < 60 mL/min/[id number] Kidney Disease: Estimated GFR < 15 mL/min/1.73m2 Glucose 141(H) 60 - 115 mg/dL [facility] Calcium 8.6 8.4 - 10.2 mg/dL [facility] Bilirubin, Total 0.6 0.0 - 1.0 mg/dL [facility] Aspartate Amino Transferase 23 5 - 31 U/L [facility] Alanine Aminotransferase 18 0 - 31 U/L [facility] Total Protein 6.9 6.5 - 8.0 g/dL [facility] Albumin Level 4.0 3.5 - 5.0 g/dL [facility] Alkaline Phosphatase 61 39 - 117 U/L [facility] 02/10/2025 9:12 AM EDT 02/10/2025 9:17 AM EDT us Generic External Data Provider LAB BLOOD ORDERAB LES Final Result [facility] [address] [place] [address] [phone] * (ABNORMAL) POCT HGB A1C (01/23/2025 10:42 AM EDT) Hemoglobin A1C 6.2(A) 4.0 - 5.7 % QC Media Lot # [id number] Lot# Expiration Date Blood 01/23/2025 10:4 2 AM EDT Teresita Munroe DO POINT OF CARE TEST ENTER/GUME T ORDERABLES Final Result * Influenza B (ID NOW Rapid Molecular) (01/21/2025 10:01 AM EDT) Influenza B Negative Negative, Indeterminate [facility] Swab 01/21/2025 10:0 1 AM EDT us Charmaine Salas MD POINT OF CARE TEST EN TER/EDIT ORDERABLES Final Result Performing Organization Address [facility]/ZIP Co de Phone Number [facility] [address] [place] [phone] * Influenza A (ID NOW Rapid Molecular) (01/21/2025 10:01 AM EDT) Influenza A Negative Negative, Indeterminate [facility] Swab 01/21/2025 10:0 1 AM EDT Charmaine Salas MD POINT OF CARE TEST EN TER/EDIT ORDERABLES Final Result Performing Organization Address [facility]/ZIP Co de Phone Number [facility] [address] [place] [phone] * POCT Rapid COVID Ag (01/21/2025 10:01 AM EDT) Rapid COVID Ag Negative [facility] Swab 01/21/2025 10:0 1 AM EDT Charmaine Salas MD POINT OF CARE TEST EN TER/EDIT ORDERABLES Final Result Performing Organization Address [facility] Co de Phone Number [facility] [address] [place] [phone] * Hepatitis Panel, General (12/11/2024 9:09 AM EDT) Hepatitis A IgM Nonreactive Nonreactive [facility] Comment:IgM antibodies to GUERRA V not detected; does not exclude earlyacute or recovered HAV infection. ~Hepatitis B Surface Antibody REACTIVE Nonreactive [facility] Comment:REACTIVE: > 11.99 mI U/mL Hepatitis B Core Antibody Nonreactive Nonreactive [facility] Hepatitis C Antibody Nonreactive Nonreactive [facility] Comment:Antibodies to HCV no t detected; does not exclude early acuteHCV infection. Hepatitis B Surface Ag Negative Negative [facility] 12/11/2024 9:09 AM EDT 12/11/2024 9:09 AM EDT us Generic External Data Provider LAB BLOOD ORDERAB LES Final Result [facility] [address] [place] [phone] * (ABNORMAL) Lipid Panel, Standard (12/11/2024 9:09 AM EDT) Triglycerides 301(H) <150 mg/dL [facility] Comment:Desirable Triglyceri de: less than 150 mg/dLBorderline High Triglyceride 150-199 mg/dLHigh Triglyceride: 200-499 mg/dLVery High Triglyceride: greater than or equal to 5OO mg/dL Cholesterol 165 <200 mg/dL [facility] Comment:Desirable Cholestero l: less than 200 mg/dLBorderline High Cholesterol: 200-239 mg/dLHigh Cholesterol: greater than 239 mg/dL LDL Cholesterol Calculated 70 <100 mg/dL [facility] Comment:Desirable LDL: less than 100 mg/dLNear Optimal/Above Optimal LDL: 110- 129 mg/dLBorderline High LDL: 130-159 mg/dLHigh LDL: 160-189 mg/dLVery High LDL: greater than or equal to 190 mg/dL HDL Cholesterol 35(L) >40 mg/dL [facility] Comment:Desirable HDL: great er than 40 mg/dL Note: This HDL assay may give artificially low results in patients with liver disease. 12/11/2024 9:09 AM EDT 12/11/2024 9:09 AM EDT Generic External Data Provider LAB BLOOD ORDERAB LES Final Result Performing Organization Address [facility] Co de Phone Number [facility] [address] [place] [phone] * Albumin, Random Urine W/Creatinine (04/09/2024 9:28 AM EST) Creatinine, Urine 128.14 mg/dL [facility] Microalbumin Urine 12.0 mg/L [facility] Microalbum Creatinine Ratio Ur 9.3 <30 ug/mg cr [facility] Comment:Albumin/Creatinine R atio Reference Ranges: Normal: < 30 ug/mg creatinine Microalbuminuria: 30 - 300 ug/mg creatinineClinical Albuminuria: > 300 ug/mg creatinine Urine (Urine, Random) 04/09/2024 9:28 AM EST 04/09/2024 9:40 AM EST us Teresita Munroe DO LAB URINE ORDERABLES Final R esult Performing Organization Address [facility] Co de Phone Number [facility] [address] [place] [phone] * Hm Colonoscopy (11/10/2020 10:20 AM EDT) Historical Provider HEALTH MAINTENANCE Final Result from Last 3 Months or Most Recently Relevant to Health Maintenance Insurance [facility] [employer] (HMO D-SNP) [facility] Care Teams Buggy Ladle Tender Relationship Specialty Start Date End Date Teresita Munroe DO [address] [place] [address] PCP - General Family Medicine 07/28/14
--- OUTSIDE RECORDS SUMMARY | 2025-04-10 13:56 | XMS_ITS | Encounter Summary ---
Author Organization [employer] [facility] Address [address] [facility] [address] [place] [address] Care Team Providers Care Oil Well Logger Name Role Phone Teresita Munroe DO Primary Care Provider Encounter Details Date Type Department Care Team (Latest Contact Info) Description 2019 Abstract [facility] CONVERSIONS Dental, Provider, DDS Social History [...] Description 06/02/2025 8:30 AM EST Office Visit [facility] ADULT DENTAL [address] [place] [address] Rasta Torres DDS [address] [place] [address] 07/17/2025 9:00 AM EST Telemedicine [facility] MEDICINE [address] [place] [address] Ana Beach RN documented as of this encounter Visit Diagnoses Not on filedocumented in this encounter Care Teams Oil Well Logger Relationship Specialty Start Date End Date Teresita Munroe DO [address] [place] [address] PCP - General Family Medicine 07/28/14 documented as of this encounter
--- OUTSIDE RECORDS SUMMARY | 2025-04-10 13:56 | XMS_ITS | Encounter Summary ---
Author Organization [employer] Address [address] [facility] [address]t [place] [address] Care Team Providers Care Cv Rn Name Role Phone Teresita Munroe DO Primary Care Provider [phone]- [phone] Reason for Visit * Reason Comments Med Refill Encounter Details Date Type Department Care Team ([facility] st Contact Info) Description 07/02/2023 Refill [facility] MEDICINE [address] [place] [address] Teresita Munroe DO [address] [place] [address] Chronic obstructive pulmonary disease, unspecified COPD type [...] Description 06/02/2025 8:30 AM EST Office Visit [facility] ADULT DENTAL [address] [place] [phone] Rasta Torres DDS [address] [place] [address] 07/17/2025 9:00 AM EST Telemedicine [facility] MEDICINE [address] [place] [address] Ana Beach, GUICHO documented as of this encounter Visit Diagnoses Diagnosis Chronic obstructive pulmonary disease, unspecified COPD type (CMS/HCC) (HCC) documented in this encounter Care Teams Cv Rn Relationship Specialty Start Date End Date Teresita Munroe DO [address] [place] [phone] PCP - General Family Medicine 07/28/14 documented as of this encounter
--- OUTSIDE RECORDS SUMMARY | 2025-04-10 13:56 | XMS_ITS | Encounter Summary ---
Author Organization [employer] Address [address] [facility] [address]t [place] [address] Care Team Providers Care Cyber Security Name Role Phone Teresita Munroe DO Primary Care Provider [phone]- [phone] Reason for Visit * Reason Comments Med Refill Encounter Details Date Type Department Care Team ([facility] st Contact Info) Description 01/03/2024 Refill [facility]EDS [address] [place], [place] [phone] Teresita Munroe DO [address] [facility] [place], [place] [phone] 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 complication, unspecified whether alf insulin use (CMS/[facility]); Osteopenia, unspecified location Social History [...] Description 06/02/2025 8:30 AM EST Office Visit [facility] ADULT DENTAL [address] [place] [phone] Rasta Torres DDS [address] [place] [phone] 07/17/2025 9:00 AM EST Telemedicine [facility] MEDICINE [address] [place] [phone] Ana Beach, GUICHO documented as of this encounter Visit Diagnoses Diagnosis 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 complication, unspecified whether long term acute care registered nurse insulin use Osteopenia, unspecified location documented in this encounter Care Teams Cyber Security Relationship Specialty Start Date End Date Teresita Munroe DO [address] [place] [phone] PCP - General Family Medicine 07/28/14 documented as of this encounter
--- OUTSIDE RECORDS SUMMARY | 2025-04-10 13:56 | XMS_ITS | Encounter Summary ---
Author Organization [employer] Address [address] [facility] 7t [place] [address] Care Team Providers Care Director Of Online Education Name Role Phone Teresita Munroe DO Primary Care Provider [phone]- [phone] Encounter Details Date Type Department Care Team ([facility] st Contact Info) Description 12/18/2024 Telephone [facility] MEDICINE [address] [place] [address] Teresita Munroe DO [address] [place] [address] Social History Tobacco Use Types Packs/Day Years [...] 06/02/2025 8:30 AM EST Office Visit [facility] ADULT DENTAL [address] [place] [address] Rasta Torres DDS [address] [place] [address] 07/17/2025 9:00 AM EST Telemedicine [facility] MEDICINE [address] [place] [address] Ana Beach RN documented as of this encounter Visit Diagnoses Not on filedocumented in this encounter Additional Health Concerns Assessment Noted Time PHQ-9 Depression Total Score: 5 01/22/20 24 9:55 AM EDT documented as of this encounter Care Teams Director Of Online Education Relationship Specialty Start Date End Date Teresita Munroe DO [address] [place] [address] PCP - General Family Medicine 07/28/14 documented as of this encounter
== END 2025-04-10 12:15 | disposition home or self-care (01) ==
LOC: HO.ENCR 11:30
PROVIDERS: PCP Family Medicine; Visit Provider Student in an Organized Health Care Education/Training Program
DX: M81.0 Age-related osteoporosis without current pathological fracture (principal)
CPT/HCPCS: 99214

== ENCOUNTER → 2025-04-10 11:30 | Outpatient (BNVA) | payer OTHER, SELFPAY | PROVIDERS: PCP Family Medicine; Visit Provider Student in an Organized Health Care Education/Training Program | DX: M81.0 Age-related osteoporosis without current pathological fracture (principal); M06.09 Rheumatoid arthritis without rheumatoid factor, multiple sites; Z79.620 Long term (current) use of immunosuppressive biologic | CPT/HCPCS: 99212 ==